=== PATIENT | male | born 1950 | race Caucasian/White ===

== ENCOUNTER → 2016-08-01 | Outpatient (CLI) | payer OTHER ==
[~2016-08-01] MED LIST: ACET-1256 PO; B-CO-25 PO; CALCTAB5 PO; CINN500T PO; COEN1CAP28 PO; CRAN500C2 PO; FINA5TAB4 PO; FISHCAP PO; GARL400T4 PO; GLC/500 PO; NRN300 PO; SIMV20TA5 PO; WARF5TAB90 PO
[2016-08-01 07:37] LABS: INR 1.2 (0.9-1.1); PROTHROMBIN TIME (PATIENT) 12.7 SECONDS (9.0-12.0)
--- NOTE | 2016-08-02 11:47 | CODING QUERY NO DIAGNOSIS ---
: 1950 TREATMENT RENDERED WITHOUT A DIAGNOSIS To promote full compliance with coding requirements relating to patient care, physician participation is requested in all cases of slitter processed film uncertainty. Please assist us with providing a diagnosis/symptom for the test(s) below: A diagnosis/symptom was not documented on your Order. A valid diagnosis/symptom is required to bill all insurances. Please remember that we are unable to code a diagnosis of rule out, probable, possible, questionable, or suspected. Tests that require a diagnosis: DOS: 08/01/16 * Prothrombin Time Profile DIAGNOSIS: Provider Signature: Date: Thank you Sol[facility] Information Management Once completed, please kindly fax back to [phone] For questions please call [phone]
== END | disposition home or self-care (01) ==
LOC: C.LAB 07:01
PROVIDERS: ATTEND Anesthesiology
DX: Z86.718 Personal history of other venous thrombosis and embolism (principal)

== ENCOUNTER → 2016-08-15 | Outpatient (CLI) | payer OTHER ==
--- NOTE | 2016-08-15 10:18 | DIAGNOSTIC IMAGING REPORT ---
RIGHT RIBS UNILATERAL WITH PA CHEST CLINICAL HISTORY: Right-sided rib pain. Trauma. COMPARISON STUDY: Chest x-ray dated 05/27/2016 FINDINGS: The erect chest reveals no pneumothorax. No acute rib fractures are visualized. IMPRESSION: No evidence of pneumothorax. No right-sided rib fractures are visualized. Electronically signed by: Carlos Alberto Nichols M.D. 08/15/2016 10:16 AM Dictated Date/Time: 08/15/2016 10:11 AM
== END | disposition home or self-care (01) ==
LOC: C.RADBC 09:53
PROVIDERS: ATTEND Anesthesiology
DX: R07.81 Pleurodynia (principal)

== ENCOUNTER 2021-01-27 08:46 | Inpatient (IN) ==
[2021-01-27] MEDS ORDERED: ACETAMINOPHEN 1,000 MG/100 ML VIAL IV STA (09:39)
--- NOTE | 2021-01-27 09:51 | Emergency Department Note ---
History of Present Illness General Chief complaint: Neuro Symptoms/Deficit Stated complaint: HEADACHE, VISION CHANGES, NEUROLOCIGAL CHANGES Time Seen by Provider: 01/27/21 09:26 Source: patient Mode of arrival: ambulatory Limitations: no limitations History of Present Illness Provider complaint: Headache, vision changes Onset (ago): day(s) 1 Location: head and eyes Radiation: non-radiation Severity: mild Pain Consistency: + constant Maximum Pain Intensity: 3 Quality: + aching and + dull Relieved By: + none Exacerbated By: + none Associated symptoms: + loss of appetite Treatments prior to arrival: none This is a 70-year-old male presents emergency department with concern for persistent headache and vision changes. Patient states yesterday when he noticed the vision changes he felt weak in the left hand and dropped his cell phone. States today when going to try and replace his cell phone and they asked him to enter information onto a small keypad he was unable to see the keypad. Patient states prior to the episode yesterday he developed a dull headache behind his eyes bilaterally. Denies any history of headaches. States he has not taken anything for the headache. States headache persisted all day yesterday and then today. He denies any accompanying lightheadedness, dizziness, nausea, vomiting, fevers, chills. Denies any recent change in medication. Patient states he has not had a good appetite for many months, and does not know why. Denies any change in his bowel movements or urinary habits. Patient is anticoagulated, states his INR was checked this morning at the lab and he was told it was 2.1 which is slightly low for him. He denies any recent head trauma or injury. No other recent illness or known sick contacts. Pt seen during a time of high acuity and national emergency pandemic while wearing PPE. Home Medications Medication Instructions Recorded Confirmed Type Calcium 600 + D(3) 1 tab PO BID 05/09/18 01/27/21 History Super B Complex + C 1 tab PO PM 05/09/18 01/27/21 History acetaminophen [Tylenol Extra 500 mg PO Q6H PRN 05/09/18 01/27/21 History Strength] cinnamon bark [Cinnamon] 1,000 mg PO TID 05/09/18 01/27/21 History coenzyme Q10 10 mg PO PM 05/09/18 01/27/21 History cranberry 500 mg PO BID 05/09/18 01/27/21 History gabapentin 300 mg PO TID 05/09/18 01/27/21 History metformin 500 mg PO BID 05/09/18 01/27/21 History omega-3 fatty acids [Fish Oil 1,000 mg PO BID 05/09/18 01/27/21 History Concentrate] simvastatin 20 mg PO PM 05/09/18 01/27/21 History warfarin [Coumadin] 2.5 - 5 mg PO DAILY 05/09/18 01/27/21 History apple cider vinegar 1,500 mg PO PM 01/27/21 01/27/21 History finasteride 5 mg PO PM 01/27/21 01/27/21 History ondansetron 4 mg PO Q6H PRN 01/27/21 01/27/21 History Allergies Allergy/AdvReac Type Severity Reaction Status Date / Time No Known Allergies Allergy Unverified 01/27/21 10:11 Past Med/Surg History Medical History (Updated 01/27/21 @ 16:08 by aFrrah Caraballo DO) BPH (benign prostatic hypertrophy) Diabetes mellitus, type 2 Dyslipidemia History of DVT (deep vein thrombosis) Surgical History H/O colonoscopy " 04/02/2014- TVA polyp, diverticulosis " History of tympanoplasty of right ear Status post appendectomy Family History Other Diabetes Heart disease Social History Smoking Status: Former smoker Second Hand Exposure: No; Hx Alcohol Use: No Hx Substance Use: No Preferred Language: Yoruba Communication Ability: Effective 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 and A total of 10 systems reviewed and were otherwise negative Physical Exam Vital Signs Vital Signs - 24 hr 01/27/21 08:49 01/27/21 09:11 01/27/21 11:00 Temperature 36.9 C Temperature Source Oral Pulse Rate 65 66 62 Pulse Rate from SpO2 Sensor 59 L Respiratory Rate 17 18 17 Blood Pressure 172/99 H 172/99 H 172/99 H Blood Pressure Mean 123 123 123 Pulse Oximetry 96 99 Oxygen Delivery Method Room Air Sepsis Recent Fever Within 48 Hours No Sepsis New/Unexplained Change in Mental Status N/A Sepsis Action Taken by Nursing No Action Required GENERAL: alert, well appearing, well nourished, no distress, non-toxic EYE EXAM: normal conjunctiva, PERRL and EOM's grossly intact, no nystagmus OROPHARYNX: no exudate, no erythema, lips, buccal mucosa, and tongue normal and mucous membranes are moist NECK: supple, no nuchal rigidity, no adenopathy, non-tender LUNGS: Clear to auscultation. Normal chest wall mechanics, no w/r/r HEART: no murmurs, S1 normal and S2 normal ABDOMEN: abdomen soft, non-tender, normo-active bowel sounds, no masses, no rebound or guarding. BACK: Back is symmetrical on inspection and there is no deformity, no midline tenderness, no CVA tenderness. SKIN: no rashes and no bruising UPPER EXTREMITIES: upper extremities are grossly normal. FROM, nml pulses b/l. LOWER EXTREMITIES: No pitting edema. FROM, nml pulses b/l. Evidence of healing superficial abrasion noted to the right pretibial region. NEURO EXAM: Normal sensorium, cranial nerves II-XII grossly intact, normal speech, no facial droop, no gross weakness of arms, no gross weakness of legs. No pronator drift. Finger to nose intact. Gross sensation intact. Course Course 1050: Patient updated on results and need for additional inpatient management. Case discussed with Mikey Bailey hospitalist service. Administered Medications Sodium Chloride (Nss 1000ml) 1,000 mls @ 250 mls/hr IV .Q4H WILMER Stop: 02/26/21 09:44 Last Infusion: 01/27/21 14:50 Dose: 0 mls/hr Documented by: [id number] Admin: 01/27/21 09:54 Dose: 250 mls/hr Documented by: [id number] Discontinued Medications Acetaminophen (Ofirmev) 1,000 mg in 100 mls @ 400 mls/hr IV NOW STA Stop: 01/27/21 09:53 Last Infusion: 01/27/21 10:11 Dose: 0 mls/hr Documented by: [id number] Admin: 01/27/21 09:54 Dose: 400 mls/hr Documented by: [id number] Ioversol (Optiray 320 125ml) 120 ml IV ONCE ONE Stop: 01/27/21 10:28 Last Admin: 01/27/21 10:28 Dose: 120 ml Documented by: [id number] Medical Decision Making Differential Diagnosis Differential Diagnosis includes but is not limited to headache, tension headache, cluster headache, migraine, subarachnoid hemorrhage, meningitis, mass, central venous thrombus, concussion, trauma and epidural/subdural hemorrhage. Medical Records Attestation: I reviewed the patient's medical records. Home Medications Current Medication List: was personally reviewed by me Laboratory Data Attestation: I reviewed the patient's lab results. Result diagrams: 01/27/21 09:00 01/27/21 09:00 Lab Results 01/27/21 01/27/21 01/27/21 Range/Units 09:00 09:00 09:00 WBC 7.48 (4.8-10.8) K/uL RBC 4.47 L (4.7-6.1) M/uL Hgb 13.8 L (14.0-18.0) g/dL Hct 39.9 L (42-52) % MCV 89.3 (80-100) fL MCH 30.9 (25-34) pg MCHC 34.6 (32-36) g/dL RDW Std Deviation 46.5 H (36.4-46.3) fL RDW Coeff of Aranza 14.3 (11.5-14.5) % Plt Count 160 (130-400) K/uL MPV 10.3 (7.4-10.4) fL Immature Gran % (Auto) 0.5 % Neut % (Auto) 73.8 % Lymph % (Auto) 16.2 % [place]ascade % (Auto) 7.4 % Eos % (Auto) 1.7 % Baso % (Auto) 0.4 % Neut # (Auto) 5.52 (1.4-6.5) K/uL Lymph # (Auto) 1.21 (1.2-3.4) K/uL Cascade # (Auto) 0.55 (0.11-0.59) K/uL Eos # (Auto) 0.13 (0-0.5) K/uL Baso # (Auto) 0.03 (0-0.2) K/uL Immature Gran # (Auto) 0.04 H (0.00-0.02) K/uL PT (9.0-12.0) Seconds INR (0.9-1.1) Sodium 136 (136-145) mmol/L Potassium 4.4 (3.5-5.1) mmol/L Chloride 104 (98-107) mmol/L Carbon Dioxide 28 (21-32) mmol/L Anion Gap 4.0 (3-11) BUN 22 H (7-18) mg/dl Creatinine 1.15 (0.6-1.4) mg/dl Est Cr Clr Drug Dosing 64.5 ml/min Est GFR ( Amer) 73.3 ml/min Est GFR (Non-Af Amer) 63.2 ml/min BUN/Creatinine Ratio 19.5 (10-20) Glucose 140 H (70-99) mg/dl Calcium 9.4 (8.5-10.1) mg/dl Magnesium 1.8 (1.8-2.4) mg/dl Total Bilirubin 0.7 (0.2-1) mg/dl AST 19 (15-37) U/L ALT 21 (12-78) U/L Alkaline Phosphatase 68 (45-117) U/L Troponin I < 0.015 (0-0.045) ng/ml NT-Pro-B Natriuret Pep 132 (0-900) pg/ml Total Protein 7.4 (6.4-8.2) gm/dl Albumin 4.0 (3.4-5.0) gm/dl Globulin 3.4 (2.5-4.0) gm/dl Albumin/Globulin Ratio 1.2 (0.9-2) Lipase 184 (73-393) U/L TSH 1.860 (0.300-4.500) uIu/ml Lyme Disease IgG Ab Negative (Negative) Lyme Disease IgM Ab Equivocal A (Negative) COVID-19 Eval Order SARS-CoV-2 (PCR) (Negative) 01/27/21 01/27/21 01/27/21 Range/Units 09:00 11:00 11:00 WBC (4.8-10.8) K/uL RBC (4.7-6.1) M/uL Hgb (14.0-18.0) g/dL Hct (42-52) % MCV (80-100) fL MCH (25-34) pg MCHC (32-36) g/dL RDW Std Deviation (36.4-46.3) fL RDW Coeff of Aranza (11.5-14.5) % Plt Count (130-400) K/uL MPV (7.4-10.4) fL Immature Gran % (Auto) % Neut % (Auto) % Lymph % (Auto) % [place]ascade % (Auto) % Eos % (Auto) % Baso % (Auto) % Neut # (Auto) (1.4-6.5) K/uL Lymph # (Auto) (1.2-3.4) K/uL [place] # (Auto) (0.11-0.59) K/uL Eos # (Auto) (0-0.5) K/uL Baso # (Auto) (0-0.2) K/uL Immature Gran # (Auto) (0.00-0.02) K/uL PT 17.7 H (9.0-12.0) Seconds INR 1.8 H (0.9-1.1) Sodium (136-145) mmol/L Potassium (3.5-5.1) mmol/L Chloride (98-107) mmol/L Carbon Dioxide (21-32) mmol/L Anion Gap (3-11) BUN (7-18) mg/dl Creatinine (0.6-1.4) mg/dl Est Cr Clr Drug Dosing ml/min Est GFR ( Amer) ml/min Est GFR (Non-Af Amer) ml/min BUN/Creatinine Ratio (10-20) Glucose (70-99) mg/dl Calcium (8.5-10.1) mg/dl Magnesium (1.8-2.4) mg/dl Total Bilirubin (0.2-1) mg/dl AST (15-37) U/L ALT (12-78) U/L Alkaline Phosphatase (45-117) U/L Troponin I (0-0.045) ng/ml NT-Pro-B Natriuret Pep (0-900) pg/ml Total Protein (6.4-8.2) gm/dl Albumin (3.4-5.0) gm/dl Globulin (2.5-4.0) gm/dl Albumin/Globulin Ratio (0.9-2) Lipase (73-393) U/L TSH (0.300-4.500) uIu/ml Lyme Disease IgG Ab (Negative) Lyme Disease IgM Ab (Negative) COVID-19 Eval Order Covid19 at [facility] SARS-CoV-2 (PCR) NEGATIVE (Negative) Imaging Data Radiologist's Impression: Chest X-Ray 01/27/21 09:39 XR chest 1V portable CLINICAL HISTORY: dizzy COMPARISON STUDY: 1118 FINDINGS: The heart is borderline enlarged. There is no focal pulmonary consolidation. There is slight interstitial prominence without evidence of failure. There are no pleural effusions. There is a 3 mm opaque foreign body within the infra axillary soft tissues of the left lateral chest wall[ IMPRESSION: No active disease in the chest. ACT 112: Negative or not required by law. Electronically signed by: Carlos Alberto Nichols M.D. 01/27/2021 10:[address] 01/27/21 09:39 CT head/brain wo con CLINICAL HISTORY: Headache and visual changes COMPARISON STUDY: No previous studies for comparison. TECHNIQUE: Axial CT of the brain is performed from the vertex to the skull base. IV contrast was not administered for this examination. A dose lowering technique was utilized adhering to the principles of ALARA. CT DOSE: 1678.78 mGycm FINDINGS: There is a right posterior frontal hypodensity involving both deras and white matter. This is suspicious for a subacute infarct. An MRI is recommended in follow-up to confirm this impression. There is no acute hemorrhage. There is no midline shift. There is no evidence of pathologic ventricular dilatation. There is no evidence of acute sinusitis IMPRESSION: 1. Right posterior frontal hypodensity involving both deras and white matter. The findings are suspicious for subacute infarct. An MRI is recommended in follow- up to confirm this impression. ACT 112: Negative or not required by law. Electronically signed by: Carlos Alberto Nichols M.D. 01/27/2021 10:36 AM Head CTA 01/27/21 09:39 HEAD & NECK CTA HISTORY: Headache. Vision change. TECHNIQUE: Multiaxial CT images of the head were performed following the intravenous administration of contrast to evaluate the major cerebral vessels. Multiaxial CT images of the neck were also performed following the intravenous administration of contrast to evaluate the major cervical vessels. Maximum intensity projection images were also obtained. A dose lowering technique was utilized adhering to the principles of ALARA. COMPARISON: Head CT 01/27/2021. FINDINGS: Bandlike hypodensity within the right frontotemporal region consistent with an acute/subacute right MCA territory infarct. Diminished perfusion within the superior division of the M2 branches of the right MCA likely corresponding to the acute/subacute infarct. No focal thrombus identified on this study. The remaining branches of the right MCA appear patent. Mild to moderate calcified plaque within the bilateral carotid siphons without significant stenosis. There is a hypoplastic distal left vertebral artery which terminates into the left posterior inferior cerebellar artery. This is considered to be a normal variant. The basilar artery and bilateral P1 segments are hypoplastic. The bilateral pbx supervisor are fed primarily through the posterior communicating arteries consistent with normal variants. The left MCA, bilateral ACAs, and bilateral FILM PRINTER show no significant stenosis, occlusion, or aneurysm. The major dural venous sinuses appear patent. The aortic arch and proximal great vessels are widely patent. There is no significant stenosis, occlusion, or dissection identified within the bilateral common carotid, internal carotid, or vertebral arteries. Mild calcified plaque within the bilateral carotid bulbs. Shotty lower cervical lymph nodes are noted. IMPRESSION: 1. Bandlike hypodensity within the right frontal temporal region consistent with an acute to subacute right MCA territory infarct. 2. Diminished perfusion within the superior division of the right MCA likely corresponding to the acute/subacute infarct. No focal thrombus identified in this study. 3. No significant stenosis, occlusion, or dissection identified within the carotid or vertebral arteries. ACT 112: Negative or not required by law. Electronically signed by: Deshawn Montesinos M.D. 01/27/2021 10:52 AM Neck CTA 01/27/21 09:39 HEAD & NECK CTA HISTORY: Headache. Vision change. TECHNIQUE: Multiaxial CT images of the head were performed following the intravenous administration of contrast to evaluate the major cerebral vessels. Multiaxial CT images of the neck were also performed following the intravenous administration of contrast to evaluate the major cervical vessels. Maximum intensity projection images were also obtained. A dose lowering technique was utilized adhering to the principles of ALARA. COMPARISON: Head CT 01/27/2021. FINDINGS: Bandlike hypodensity within the right frontotemporal region consistent with an acute/subacute right MCA territory infarct. Diminished perfusion within the superior division of the M2 branches of the right MCA likely corresponding to the acute/subacute infarct. No focal thrombus identified on this study. The remaining branches of the right MCA appear patent. Mild to moderate calcified plaque within the bilateral carotid siphons without significant stenosis. There is a hypoplastic distal left vertebral artery which terminates into the left posterior inferior cerebellar artery. This is considered to be a normal variant. The basilar artery and bilateral P1 segments are hypoplastic. The bilateral pbx supervisor are fed primarily through the posterior communicating arteries consistent with normal variants. The left MCA, bilateral ACAs, and bilateral FILM PRINTER show no significant stenosis, occlusion, or aneurysm. The major dural venous sinuses appear patent. The aortic arch and proximal great vessels are widely patent. There is no significant stenosis, occlusion, or dissection identified within the bilateral common carotid, internal carotid, or vertebral arteries. Mild calcified plaque within the bilateral carotid bulbs. Shotty lower cervical lymph nodes are noted. IMPRESSION: 1. Bandlike hypodensity within the right frontal temporal region consistent with an acute to subacute right MCA territory infarct. 2. Diminished perfusion within the superior division of the right MCA likely corresponding to the acute/subacute infarct. No focal thrombus identified in this study. 3. No significant stenosis, occlusion, or dissection identified within the carotid or vertebral arteries. ACT 112: Negative or not required by law. Electronically signed by: Deshawn Montesinos M.D. 01/27/2021 10:52 AM ECG Data Attestation: I personally reviewed and interpreted this ECG as follows: Indication: + other Rate (beats per minute): 61 Rhythm: + normal sinus ECG Intervals/blocks: + Normal QRS and + Normal QT ECG [place]: + Normal ECG ST segments: + Normal ST segments Blood Pressure Blood Pressure Findings: Elevated blood pressure MDM Narrative This is a 70-year-old male who presents due to concern for persistent headaches and vision changes since yesterday. Patient is chronically anticoagulated, does have a history of hypertension and diabetes. Patient denies any recent trauma or medication changes. Due to concern, labs drawn and sent and patient sent for CT imaging. Fortunately CT did reveal subacute CVA. It is unclear if this is related to patient being mildly subtherapeutic on his INR at 2.1 as he states he is typically supposed to be at least 2.5. No other recent illness. Lyme was equivocal, however no recent story for insect bite or exposure, will await additional testing. Patient was hypertensive here. Case discussed with hospitalist for additional evaluation management. Patient and family made aware of all results, verbalized understanding, were in agreement with plan. Mild hyperglycemia noted, no evidence of DKA. An order was placed for continuous cardiac monitoring. The monitor shows a rate of _64_ with normal sinus_ rhythm. Impression & Plan CVA (cerebral vascular accident), Subtherapeutic international normalized ratio (INR), Hypertension Discharge Plan Visit Data Chief Complaint: Neuro Symptoms/Deficit Stated Complaint: HEADACHE, VISION CHANGES, NEUROLOCIGAL CHANGES ED Provider: Farrah Caraballo Discharge Problem: CVA (cerebral vascular accident), Subtherapeutic international normalized ratio (INR), Hypertension Patient Disposition: Admitted As Inpatient Discharge Instructions Interventions: ED Discharge Assessment Last Done: 01/27/21 13:54 Discharge Problem: CVA (cerebral vascular accident) Qualifiers: CVA mechanism: unspecified Qualified Code(s): I63.9 - Cerebral infarction, unspecified Hypertension Qualifiers: Hypertension type: primary hypertension Qualified Code(s): I10 - Essential (primary) hypertension
[2021-01-27] MEDS: SODIUM CHLORIDE 0.9% 1000ML 1,000 ML IV SCH ×2 (09:54→16:39)
[2021-01-27 09:55] LABS: Basophils # (auto) 0.03 K/uL (0-0.2); Basophils % (auto) 0.4 %; Eosinophils # (auto) 0.13 K/uL (0-0.5); Eosinophils % (auto) 1.7 %; Hematocrit (blood only) 39.9 % (42-52); Hemoglobin 13.8 g/dL (14.0-18.0); Immature Granulocytes # (auto) 0.04 K/uL (0.00-0.02); Immature Granulocytes % (auto) 0.5 %; Lymphocytes # (auto) 1.21 K/uL (1.2-3.4); Lymphocytes % (auto) 16.2 %; Mean Corpuscular Hemoglobin 30.9 pg (25-34); Mean Corpuscular Hgb Conc 34.6 g/dL (32-36); Mean Corpuscular Volume 89.3 fL (80-100); Mean Platelet Volume 10.3 fL (7.4-10.4); Monocytes # (auto) 0.55 K/uL (0.11-0.59); Monocytes % (auto) 7.4 %; Neutrophils # (auto) 5.52 K/uL (1.4-6.5); Neutrophils % (auto) 73.8 %; Platelet Count 160 K/uL (130-400); RDW Coefficient of Variation 14.3 % (11.5-14.5); RDW Standard Deviation 46.5 fL (36.4-46.3); Red Blood Count 4.47 M/uL (4.7-6.1); White Blood Count 7.48 K/uL (4.8-10.8)
[2021-01-27 10:02] LABS: Alanine Aminotransferase 21 U/L (12-78); Aspartate Aminotransferase 19 U/L (15-37); BUN Creatinine Ratio 19.5 (10-20); Blood Urea Nitrogen 22 mg/dl (7-18); Calcium 9.4 mg/dl (8.5-10.1); Carbon Dioxide 28 mmol/L (21-32); Chloride 104 mmol/L (98-107); Creatinine Clr Calc Pharmacy 64.5 ml/min; Est GFR (African American) 73.3 ml/min; Est GFR (Non-African American) 63.2 ml/min; Glucose 140 mg/dl (70-99); Lipase 184 U/L (73-393); Magnesium 1.8 mg/dl (1.8-2.4); Potassium 4.4 mmol/L (3.5-5.1); Sodium 136 mmol/L (136-145)
[2021-01-27 10:13] LABS: Albumin Globulin Ratio 1.2 (0.9-2); Alkaline Phosphatase 68 U/L (45-117); Bilirubin,Total 0.7 mg/dl (0.2-1); Globulin 3.4 gm/dl (2.5-4.0); NT Pro B Type Natriuretic Pept 132 pg/ml (0-900); Total Protein 7.4 gm/dl (6.4-8.2); Troponin I < 0.015 ng/ml (0-0.045)
[2021-01-27 10:23] LABS: Lyme Ab IgG w/WB Rflx Negative (Negative)
[2021-01-27] MEDS ORDERED: OPTIRAY 320 125ml IV ONE (10:27)
[2021-01-27 10:28] LABS: Lyme Ab IgM w/WB Rflx Equivocal (Negative)
--- NOTE | 2021-01-27 10:38 | CT Scan Report ---
CT head/brain wo con CLINICAL HISTORY: Headache and visual changes COMPARISON STUDY: No previous studies for comparison. TECHNIQUE: Axial CT of the brain is performed from the vertex to the skull base. IV contrast was not administered for this examination. A dose lowering technique was utilized adhering to the principles of ALARA. CT DOSE: 1678.78 mGycm FINDINGS: There is a right posterior frontal hypodensity involving both deras and white matter. This is suspicio us for a subacute infarct. An MRI is recommended in follow-up to confirm this impression. There is no acute hemorrhage. There is no midline shift. There is no evidence of pathologic ventricular dilatation. There is no evidence of acute sinusitis IMPRESSION: 1. Right posterior frontal hypodensity involving both deras and white matter. The findings are suspici ous for subacute infarct. An MRI is recommended in follow-up to confirm this impression. ACT 112: Negative or not required by law. Electronically signed by: Carlos Alberto Nichols M.D. 01/27/2021 10:36 AM
--- NOTE | 2021-01-27 10:48 | XRay Report ---
XR chest 1V portable CLINICAL HISTORY: dizzy COMPARISON STUDY: 1118 FINDINGS: The heart is borderline enlarged. There is no focal pulmonary consolidation. There is sligh t interstitial prominence without evidence of failure. There are no pleural effusions. There is a 3 m m opaque foreign body within the infra axillary soft tissues of the left lateral chest wall[ IMPRESSION: No active disease in the chest. ACT 112: Negative or not required by law. Electronically signed by: Carlos Alberto Nichols M.D. 01/27/2021 10:47 AM
--- NOTE | 2021-01-27 10:53 | CT Scan Report ---
HEAD & NECK CTA HISTORY: Headache. Vision change. TECHNIQUE: Multiaxial CT images of the head were performed following the intravenous administration o f contrast to evaluate the major cerebral vessels. Multiaxial CT images of the neck were also perform ed following the intravenous administration of contrast to evaluate the major cervical vessels. Maxim um intensity projection images were also obtained. A dose lowering technique was utilized adhering to the principles of ALARA. COMPARISON: Head CT 01/27/2021. FINDINGS: Bandlike hypodensity within the right frontotemporal region consistent with an acute/subacute right M CA territory infarct. Diminished perfusion within the superior division of the M2 branches of the rig ht MCA likely corresponding to the acute/subacute infarct. No focal thrombus identified on this study . The remaining branches of the right MCA appear patent. Mild to moderate calcified plaque within the bilateral carotid siphons without significant stenosis. There is a hypoplastic distal left vertebral artery which terminates into the left posterior inferior cerebellar artery. This is considered to be a normal variant. The basilar artery and bilateral P1 segments are hypoplastic. The bilateral briefcase sewer a re fed primarily through the posterior communicating arteries consistent with normal variants. The le ft MCA, bilateral ACAs, and bilateral WATER PLUMBER show no significant stenosis, occlusion, or aneurysm. The m ajor dural venous sinuses appear patent. The aortic arch and proximal great vessels are widely patent. There is no significant stenosis, occ lusion, or dissection identified within the bilateral common carotid, internal carotid, or vertebral arteries. Mild calcified plaque within the bilateral carotid bulbs. Shotty lower cervical lymph nodes are noted. IMPRESSION: 1. Bandlike hypodensity within the right frontal temporal region consistent with an acute to subacute right MCA territory infarct. 2. Diminished perfusion within the superior division of the right MCA likely corresponding to the acu te/subacute infarct. No focal thrombus identified in this study. 3. No significant stenosis, occlusion, or dissection identified within the carotid or vertebral arter ies. ACT 112: Negative or not required by law. Electronically signed by: Deshawn Montesinos M.D. 01/27/2021 10:52 AM
--- NOTE | 2021-01-27 10:53 | CT Scan Report ---
HEAD & NECK CTA HISTORY: Headache. Vision change. TECHNIQUE: Multiaxial CT images of the head were performed following the intravenous administration o f contrast to evaluate the major cerebral vessels. Multiaxial CT images of the neck were also perform ed following the intravenous administration of contrast to evaluate the major cervical vessels. Maxim um intensity projection images were also obtained. A dose lowering technique was utilized adhering to the principles of ALARA. COMPARISON: Head CT 01/27/2021. FINDINGS: Bandlike hypodensity within the right frontotemporal region consistent with an acute/subacute right M CA territory infarct. Diminished perfusion within the superior division of the M2 branches of the rig ht MCA likely corresponding to the acute/subacute infarct. No focal thrombus identified on this study . The remaining branches of the right MCA appear patent. Mild to moderate calcified plaque within the bilateral carotid siphons without significant stenosis. There is a hypoplastic distal left vertebral artery which terminates into the left posterior inferior cerebellar artery. This is considered to be a normal variant. The basilar artery and bilateral P1 segments are hypoplastic. The bilateral masking machine operator a re fed primarily through the posterior communicating arteries consistent with normal variants. The le ft MCA, bilateral ACAs, and bilateral RADAR REPAIRER show no significant stenosis, occlusion, or aneurysm. The m ajor dural venous sinuses appear patent. The aortic arch and proximal great vessels are widely patent. There is no significant stenosis, occ lusion, or dissection identified within the bilateral common carotid, internal carotid, or vertebral arteries. Mild calcified plaque within the bilateral carotid bulbs. Shotty lower cervical lymph nodes are noted. IMPRESSION: 1. Bandlike hypodensity within the right frontal temporal region consistent with an acute to subacute right MCA territory infarct. 2. Diminished perfusion within the superior division of the right MCA likely corresponding to the acu te/subacute infarct. No focal thrombus identified in this study. 3. No significant stenosis, occlusion, or dissection identified within the carotid or vertebral arter ies. ACT 112: Negative or not required by law. Electronically signed by: Deshawn Montesinos M.D. 01/27/2021 10:52 AM
[2021-01-27 11:05] LABS: INR 1.8 (0.9-1.1); Prothrombin Time 17.7 Seconds (9.0-12.0)
--- NOTE | 2021-01-27 11:12 | History & Physical Report ---
Date of Service January 27, 2021 Assessment & Plan (1) CVA (cerebral vascular accident): -Admit to PCU -CT and CTA head and neck reviewed showing a right MCA acute infarct -Check MRI brain w/o -Stroke order set completed, Dr. Contreras consulted with neurology -Start on baby aspirin 81 mg -Continue Coumadin, currently subtherapeutic with an INR of 2.1, as per HPI for hx of subtherapeutic for about 3 weeks. Cannot say that this patient failed coumadin. -Possible the stroke occurred due to history of 3 weeks of subtherapeutic INR -Coumadin dosing was increased this morning at the coag clinic to reflect 2.5 mg on Mondays and 5 mg all other days. -Check 2D echo -PT/OT/speech therapy -Follow-up A1c and lipid panel with a.m. labs (2) Dyslipidemia: -Has been taking simvastatin 20 mg every afternoon, increase this, no history of myalgia. -Follow-up repeat lipid panel tomorrow a.m. (3) Diabetes mellitus, type 2: -Last A1c was 6.8 on 09/29/2020, recheck with a.m. 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 These complaints started yesterday, on 01/26 at approximately 9 AM. Patient reports that his vision was wavy/blurred and is now back to normal. He had a left handed weakness where he dropped his cell phone. Patient reports his weakness in his left arm is improved but not back to normal. He has been ambulating and denies any focal deficit in his lower extremities. Reports currently having a headache behind his eyes and is receiving IV Tylenol. Denies any chest pain or shortness of breath. Patient denies smoking since 1973, no chewing tobacco, no alcohol consumption. His friend, Montse, is present at bedside. Patient follows with the Coumadin clinic with Mikey, he had previously been taking Coumadin 5 mg twice a week and 2.5 mg all other days, but was switched today by the coag clinic to Coumadin 2.5 mg on Mondays and 5 mg all other days. On review of outpatient records, it appears that on 01/06 he was supratherapeutic with an INR of 6.1. At that point in time he was told to hold 2 doses. On 01/13 his INR was subtherapeutic at 1.3, and again subtherapeutic on 01/20 at 1.2. Today in the ER he is again subtherapeutic with an INR of 2.1. In the ER CT of the head and CTA was completed which shows a subacute right MCA infarct without focal thrombus. Allergies Allergy/AdvReac Type Severity Reaction Status Date / Time No Known Allergies Allergy Unverified 01/27/21 10:11 Home Medications Medication Instructions Recorded Confirmed Type acetaminophen 500 mg tablet 500 mg PO Q6H PRN 05/09/18 01/27/21 History (Tylenol Extra Strength) calcium carbonate-vitamin D3 600 1 tab PO BID 05/09/18 01/27/21 History mg calcium-200 unit capsule (Calcium 600 + D(3)) cinnamon bark 500 mg capsule 1,000 mg PO TID 05/09/18 01/27/21 History (Cinnamon) coenzyme Q10 10 mg capsule 10 mg PO PM 05/09/18 01/27/21 History cranberry 500 mg capsule 500 mg PO BID 05/09/18 01/27/21 History gabapentin 300 mg capsule 300 mg PO TID 05/09/18 01/27/21 History metformin 500 mg tablet 500 mg PO BID 05/09/18 01/27/21 History omega-3 fatty acids 1,000 mg 1,000 mg PO BID 05/09/18 01/27/21 History capsule (Fish Oil Concentrate) vitamin B comp with C no.4 150 mg 1 tab PO PM 05/09/18 01/27/21 History tablet (Super B Complex + C) apple cider vinegar 500 mg tablet 1,500 mg PO PM 01/27/21 01/27/21 History finasteride 5 mg tablet 5 mg PO PM 01/27/21 01/27/21 History ondansetron 4 mg disintegrating 4 mg PO Q6H PRN 01/27/21 01/27/21 History tablet amlodipine 5 mg tablet (Norvasc) 2.5 mg PO QAM #30 tab 02/02/21 Rx apixaban 5 mg tablet (Eliquis) 5 mg PO BID 30 Days #60 tab 02/02/21 Rx aspirin 81 mg tablet,delayed 81 mg PO QAM #30 tab 02/02/21 Rx release atorvastatin 40 mg tablet 40 mg PO QPM #30 tab 02/02/21 Rx Past Med/Surg History Medical History (Updated 01/27/21 @ 16:08 by Farrah Caraballo DO) BPH (benign prostatic hypertrophy) Diabetes mellitus, type 2 Dyslipidemia History of DVT (deep vein thrombosis) Surgical History H/O colonoscopy " 04/02/2014- TVA polyp, diverticulosis " History of tympanoplasty of right ear Status post appendectomy Family History Other Diabetes Heart disease Social History Smoking Status: Former smoker Second Hand Exposure: No; Hx Alcohol Use: No Hx Substance Use: No Preferred Language: German Communication Ability: Effective Car Tracer Required: No Beliefs That Will Affect Care: None marital status: / Current Living Situation: Alone How many Children do You have: 0 Other Information That Helps Us Care for You: No Feels Safe at Home: Yes Safety Concerns: Feels Safe At This Time Assistive Devices: None Review of Systems Review of Systems: Constitutional: No fever, sweats or chills Eyes: As per HPI, + blurred vision now improved, no peripheral visual field deficit, no diplopia. ENT: normal hearing, no trouble swallowing Respiratory: No cough, sputum, dyspnea at rest or on exertion Cardiovascular: No chest pain, tightness or palpitations Abdomen: No pain, nausea, vomiting, diarrhea or constipation Musculoskeletal: No joint pain, calf pain, swelling Neurologic: + Left hand/arm weakness, no numbness/tingling or balance problems Psychiatric: No anxiety or depression Skin: No rash or itch Physical Exam Physical Exam: General: awake, alert, no apparent distress, overweight, BMI 33.6 Head: Normocephalic, atraumatic, left-sided facial droop involving the mouth ENT: PERRL, EOMI, no pharyngeal exudate, mucous membranes moist, able to identify number of fingers held up Chest: Clear to auscultation, on room air, no adventitious breath sounds Cardiac: Regular rate and rhythm, no murmur, no JVD, normal peripheral pulses, good capillary refill Abdominal: NABS x 4 quadrants, soft, nondistended, nontender to palpation, no rebound or guarding Extremities: Left upper extremity weakness with arm raise, left hip flexor weakness with strength testing and lifting leg off bed, equal handgrip bilaterally, +weakness with plantar flexion in Left, otherwise normal inspection, no peripheral edema or erythema, calfs nontender to palpation Psych: Normal mood and affect Neuro: AAO x 3, cranial nerves tested, left-sided facial droop, left upper extremity weakness with shoulder flexion, left lower extremity weakness with hip flexion, left weakness with plantarflexion. All deficits rated 4/5 compared to the right which is 5/5 strength. Speech is clear, no peripheral sensory deficits, negative pronator drift, able to perform finger to nose testing and heel to summers testing for cerebellar testing, gait not assessed but told by nursing walked to bathroom. Results & Data Results & Data ([facility]) Vital Signs (Past 12 Hours) Vital Signs Temp Pulse Resp BP Pulse Ox 01/27/21 09:11 36.9 C 66 18 172/99 H 96 Diagnostic Findings Chest X-Ray 01/27/21 09:39 XR chest 1V portable CLINICAL HISTORY: dizzy COMPARISON STUDY: 1118 FINDINGS: The heart is borderline enlarged. There is no focal pulmonary consolidation. There is slight interstitial prominence without evidence of failure. There are no pleural effusions. There is a 3 mm opaque foreign body within the infra axillary soft tissues of the left lateral chest wall[ IMPRESSION: No active disease in the chest. ACT 112: Negative or not required by law. Electronically signed by: Carlos Alberto Nichols M.D. 01/27/2021 10:[address] 01/27/21 09:39 CT head/brain wo con CLINICAL HISTORY: Headache and visual changes COMPARISON STUDY: No previous studies for comparison. TECHNIQUE: Axial CT of the brain is performed from the vertex to the skull base. IV contrast was not administered for this examination. A dose lowering technique was utilized adhering to the principles of ALARA. CT DOSE: 1678.78 mGycm FINDINGS: There is a right posterior frontal hypodensity involving both deras and white matter. This is suspicious for a subacute infarct. An MRI is recommended in follow-up to confirm this impression. There is no acute hemorrhage. There is no midline shift. There is no evidence of pathologic ventricular dilatation. There is no evidence of acute sinusitis IMPRESSION: 1. Right posterior frontal hypodensity involving both deras and white matter. The findings are suspicious for subacute infarct. An MRI is recommended in follow- up to confirm this impression. ACT 112: Negative or not required by law. Electronically signed by: Carlos Alberto Nichols M.D. 01/27/2021 10:36 AM Head CTA 01/27/21 09:39 HEAD & NECK CTA HISTORY: Headache. Vision change. TECHNIQUE: Multiaxial CT images of the head were performed following the intravenous administration of contrast to evaluate the major cerebral vessels. Multiaxial CT images of the neck were also performed following the intravenous administration of contrast to evaluate the major cervical vessels. Maximum intensity projection images were also obtained. A dose lowering technique was utilized adhering to the principles of ALARA. COMPARISON: Head CT 01/27/2021. FINDINGS: Bandlike hypodensity within the right frontotemporal region consistent with an acute/subacute right MCA territory infarct. Diminished perfusion within the superior division of the M2 branches of the right MCA likely corresponding to the acute/subacute infarct. No focal thrombus identified on this study. The remaining branches of the right MCA appear patent. Mild to moderate calcified plaque within the bilateral carotid siphons without significant stenosis. There is a hypoplastic distal left vertebral artery which terminates into the left posterior inferior cerebellar artery. This is considered to be a normal variant. The basilar artery and bilateral P1 segments are hypoplastic. The bilateral sewer digger are fed primarily through the posterior communicating arteries consistent with normal variants. The left MCA, bilateral ACAs, and bilateral ABSORBER OPERATOR show no significant stenosis, occlusion, or aneurysm. The major dural venous sinuses appear patent. The aortic arch and proximal great vessels are widely patent. There is no significant stenosis, occlusion, or dissection identified within the bilateral common carotid, internal carotid, or vertebral arteries. Mild calcified plaque within the bilateral carotid bulbs. Shotty lower cervical lymph nodes are noted. IMPRESSION: 1. Bandlike hypodensity within the right frontal temporal region consistent with an acute to subacute right MCA territory infarct. 2. Diminished perfusion within the superior division of the right MCA likely corresponding to the acute/subacute infarct. No focal thrombus identified in this study. 3. No significant stenosis, occlusion, or dissection identified within the carotid or vertebral arteries. ACT 112: Negative or not required by law. Electronically signed by: Deshawn Montesinos M.D. 01/27/2021 10:52 AM Neck CTA 01/27/21 09:39 HEAD & NECK CTA HISTORY: Headache. Vision change. TECHNIQUE: Multiaxial CT images of the head were performed following the intravenous administration of contrast to evaluate the major cerebral vessels. Multiaxial CT images of the neck were also performed following the intravenous administration of contrast to evaluate the major cervical vessels. Maximum intensity projection images were also obtained. A dose lowering technique was utilized adhering to the principles of ALARA. COMPARISON: Head CT 01/27/2021. FINDINGS: Bandlike hypodensity within the right frontotemporal region consistent with an acute/subacute right MCA territory infarct. Diminished perfusion within the superior division of the M2 branches of the right MCA likely corresponding to the acute/subacute infarct. No focal thrombus identified on this study. The remaining branches of the right MCA appear patent. Mild to moderate calcified plaque within the bilateral carotid siphons without significant stenosis. There is a hypoplastic distal left vertebral artery which terminates into the left posterior inferior cerebellar artery. This is considered to be a normal variant. The basilar artery and bilateral P1 segments are hypoplastic. The bilateral sewer digger are fed primarily through the posterior communicating arteries consistent with normal variants. The left MCA, bilateral ACAs, and bilateral ABSORBER OPERATOR show no significant stenosis, occlusion, or aneurysm. The major dural venous sinuses appear patent. The aortic arch and proximal great vessels are widely patent. There is no significant stenosis, occlusion, or dissection identified within the bilateral common carotid, internal carotid, or vertebral arteries. Mild calcified plaque within the bilateral carotid bulbs. Shotty lower cervical lymph nodes are noted. IMPRESSION: 1. Bandlike hypodensity within the right frontal temporal region consistent with an acute to subacute right MCA territory infarct. 2. Diminished perfusion within the superior division of the right MCA likely corresponding to the acute/subacute infarct. No focal thrombus identified in this study. 3. No significant stenosis, occlusion, or dissection identified within the carotid or vertebral arteries. ACT 112: Negative or not required by law. Electronically signed by: Deshawn Montesinos M.D. 01/27/2021 10:52 AM ECG Additional Comments: 27-JAN-2021 09:34:01 [facility]-EDSTAT ROUTINE RETRIEVAL Normal sinus rhythm Cannot rule out Anterior infarct , age undetermined Abnormal ECG When compared with ECG of 27-MAY-2016 23:04, Vent. rate has decreased BY 60 BPM 25mm/s 10mm/mV 150Hz 9.0.9 12SL 241 CELY: 13 Referred by: REFERRED SELF Unconfirmed Vent. rate 61 BPM TX interval 152 ms QRS duration 80 ms QT/QTc 400/402 ms Code Status & VTE Plan Code Status Full code -discussed with the patient at bedside Supervising Physician Co-Signing Physician Notes Pt was seen and examined. Agreed with Radha SAMUEL exam assessment and plan. 70-year-old male with PMHx of DM type II, HLD, recurrent venous thromboembolism in 1983 1993 on long-term anticoagulation with Coumadin, BPH, remote history of smoking, who presents to the ER after sending from his PCP office due to visual deficit, left hand weakness and left-sided facial droop. Pt said that symptoms started yesterday morning. He said that his left hand feel weak and dropped his cell phone. he said that he continues to have vision problem and headache. He followed with the coumadin clinic, but his INR was supratherapeutic at 6.1 on 01/06, then coumadin was held for 2 about 2 days, but on 01/13 INR was 1.3. his INR was checked this morning at the lab and he was told it was 2.1. CT head showed Right posterior frontal hypodensity involving both deras and white matter . The findings are suspicious for subacute infarct. CTA head and Neck showed Bandlike hypodensity within the right frontal temporal region consistent with an acute to subacute right MCA territory infarct. Diminished perfusion within the superior division of the right MCA likely corresponding to the acute/subacute infarct. Received aspirin 81mg, will continue. Will get a MRI of head and ECHO. PT/OT and speech eval. Will consult Neuro. Will discuss with Neuro about anticoagulant. Will monitor BP. Continue monitor closely in tele. MD Renetta
[2021-01-27] MEDS ORDERED: GLUCAGON FOR INJ 1 MG VIAL SQ PRN (14:23)
[2021-01-27] MEDS ORDERED: ONDANSETRON 4 MG OD TAB PO PRN (14:23)
[2021-01-27] MEDS ORDERED: GLUCOSE 40% GEL 15 GM TUBE PO PRN (14:23)
[2021-01-27] MEDS ORDERED: CARBOHYDRATES FOR HYPOGLYCEMIA PO PRN (14:23)
[2021-01-27] MEDS ORDERED: PHARMACIST DISCHARGE MED REC CONSULT PRN (14:23)
[2021-01-27] MEDS ORDERED: DEXTROSE 50% 50 ML SYRINGE IV PRN (14:23)
[2021-01-27] MEDS ORDERED: GLUCOSE 10 TABS/TUBE PO PRN (14:23)
--- NOTE | 2021-01-27 15:25 | Electrocardiogram Report ---
Test Reason : Blood Pressure : / mmHG Vent. Rate : 061 BPM Atrial Rate : 061 BPM P-R Int : 152 ms QRS Dur : 080 ms QT Int : 400 ms P-R-T Axes : 044 -15 030 degrees QTc Int : 402 ms Normal sinus rhythm Cannot rule out Anterior infarct , age undetermined Abnormal ECG When compared with ECG of 27-MAY-2016 23:04, Vent. rate has decreased BY 60 BPM Confirmed by Roel Tellez ([id number]) on 01/27/2021 3:25:12 PM Referred By: REFERRED SELF Confirmed By:Roel Tellez
--- NOTE | 2021-01-27 16:09 | Communication Note ---
Date of Service: January 27, 2021 Neurology was just consulted on today. He had an event yesterday characterized by some visual disturbances and left-sided weakness according to the chart and presented to his primary care office today was felt that he had a stroke and was referred for to the emergency room Thus far CAT scan has shown some bandlike abnormalities in the right frontal area and some attenuated vessels in the right frontal area on the CT angiogram consistent with infarction. There is no significant extracranial vascular disease. An EKG shows what may be an anterior septal SC versus poor R wave progression of indeterminate age. He is currently down for an echocardiogram and an MRI scan He is currently not in his room and cannot be examined but this can be performed tomorrow. According to the chart his current neurologic deficits are relatively minor and he feels subjectively back to normal He has a history of DVT but I am not sure if he has a primary coagulopathy and has been on Coumadin with supratherapeutic levels to the point that Coumadin was held and now he has been subtherapeutic He also has a history of BPH dyslipidemia and his medications at home include aspirin calcium coenzyme every 10 Cranberry cinnamon bark gabapentin Metformin omega-3 fatty acids, simvastatin, and Coumadin is not known to be on aspirin. He takes a number of [id number] food additives and vitamins Neurology will have to defer on consultation today pending results of the imaging studies and the echocardiogram. The chart needs to be reviewed to see if there is underlying primary coagulopathy as a cause for maintaining his Coumadin at this point in time after the DVT (determine whether or not he needs had a work-up for coagulopathy documented on an outpatient basis. Echocardiogram score need to be reviewed to see if he does have evidence for an akinetic segment or other potential cardiogenic source of emboli as currently the CT angiographic studies do not reveal anything of significance. He is going to need to be monitored for paroxysmal atrial fibrillation and may need an outpatient Zio patch Dr. Carney will be assuming the neurologic consultation service tomorrow and will have opportunity to do a more thorough review of his pending imaging studies, echocardiogram, and an opportunity to review the outpatient chart to see if there is an underlying coagulopathy At present his INR needs to be taken back into the therapeutic range and there may have to be consideration of adding aspirin to his regimen depending on what is found on pending studies Patricio Contreras MD
[2021-01-27] MEDS: GABAPENTIN 300 MG CAP PO SCH ×2 (16:28→20:47)
--- NOTE | 2021-01-27 16:30 | Magnetic Resonance Report ---
MRI OF THE BRAIN WITHOUT IV CONTRAST CLINICAL HISTORY: Strokelike symptoms. COMPARISON STUDY: CT of the brain dated 01/27/2021. TECHNIQUE: MRI of the brain was performed utilizing various T1 and T2-weighted sequences in the axial , sagittal, and coronal planes. IV contrast was not administered for this examination. FINDINGS: Brain parenchyma: There is an approximately 4 cm focus of restricted diffusion identified in the righ t posterior frontal lobe consistent with an acute to subacute infarct. There is no evidence of hemorr sagar or mass effect. No additional foci of acute ischemia are identified. No extra-axial fluid collec tion is seen. There is mild age-related involutional change. Minimal microangiopathic disease is seen . The cerebellar tonsils are normal in configuration. Ventricles, sulci, and cisterns: Prominent secondary to involutional change. Pituitary and sella: Unremarkable. Intracranial vasculature: Normal flow voids are maintained at the skull base. Orbits: The bony orbits are grossly intact. Orbital contents are normal in appearance. Sinuses and mastoids: There is mild mucosal thickening within the left maxillary antrum. Trace mucosa l thickening is seen in the ethmoid sinuses. There are bilateral mastoid effusions. Calvarium: Unremarkable. Cervical cord: Partially visualized cervical spinal cord is normal in morphology and signal intensity . IMPRESSION: 1. There is a large acute to subacute infarct in the posterior right frontal lobe. 2. There is no evidence of hemorrhage or mass effect. 3. No additional foci of acute ischemia are identified. 4. Bilateral mastoid effusions. ACT 112: Negative or not required by law. Electronically signed by: Rick Stone M.D. 01/27/2021 4:29 PM
[2021-01-27] MEDS ORDERED: hydrALAZINE HCL 20 MG/ML VIAL IV STA (16:34)
[2021-01-27 16:46] LABS: Appearance Urine Clear (Clear); Bilirubin Urine Negative (Negative); Blood Urine Negative (Negative); Color Urine Yellow; Glucose Urine UA Negative (Negative); Ketones Urine Negative (Negative); Leukocyte Esterase Urine Negative (Negative); Nitrite Urine Negative (Negative); Protein Urine Negative (Negative); Specific Gravity Urine 1.028 (1.000-1.030); Urobilinogen Urine Negative (Negative)
[2021-01-27] MEDS: INSULIN ASPART 100 UNITS/ML 3 ML PEN SC SCH ×3 (17:08→20:50)
[2021-01-27] MEDS ORDERED: hydrALAZINE HCL 20 MG/ML VIAL IV PRN (18:01)
[2021-01-27] MEDS: FINASTERIDE 5 MG TAB PO SCH (20:47)
[2021-01-27] MEDS: SIMVASTATIN 40 MG TAB PO SCH (20:47)
[2021-01-28 07:56] LABS: Basophils # (auto) 0.02 K/uL (0-0.2); Basophils % (auto) 0.3 %; Eosinophils # (auto) 0.14 K/uL (0-0.5); Eosinophils % (auto) 2.2 %; Hematocrit (blood only) 36.7 % (42-52); Hemoglobin 13.1 g/dL (14.0-18.0); Immature Granulocytes # (auto) 0.03 K/uL (0.00-0.02); Immature Granulocytes % (auto) 0.5 %; Lymphocytes # (auto) 1.05 K/uL (1.2-3.4); Lymphocytes % (auto) 16.1 %; Mean Corpuscular Hemoglobin 30.9 pg (25-34); Mean Corpuscular Hgb Conc 35.7 g/dL (32-36); Mean Corpuscular Volume 86.6 fL (80-100); Mean Platelet Volume 9.9 fL (7.4-10.4); Monocytes % (auto) 7.7 %; Neutrophils # (auto) 4.77 K/uL (1.4-6.5); Neutrophils % (auto) 73.2 %; Platelet Count 146 K/uL (130-400); RDW Coefficient of Variation 14.3 % (11.5-14.5); RDW Standard Deviation 45.1 fL (36.4-46.3); Red Blood Count 4.24 M/uL (4.7-6.1); White Blood Count 6.51 K/uL (4.8-10.8)
[2021-01-28 08:17] LABS: Calcium 8.3 mg/dl (8.5-10.1); Creatinine Clr Calc Pharmacy 62.8 ml/min; Est GFR (African American) 74.1 ml/min; Est GFR (Non-African American) 63.9 ml/min
[2021-01-28] MEDS: GABAPENTIN 300 MG CAP PO SCH ×3 (08:45→19:14)
[2021-01-28] MEDS: ASPIRIN 81 MG ECTAB PO SCH (08:45)
[2021-01-28] MEDS: INSULIN ASPART 100 UNITS/ML 3 ML PEN SC SCH ×4 (08:46→21:38)
[2021-01-28 08:56] LABS: Estimated Average Glucose 146 mg/dl; Hemoglobin A1C 6.7 % (4.5-5.6)
[2021-01-28] MEDS ORDERED: WARFARIN SOD 5 MG TAB PO SCH ×2 (09:00→16:00)
[2021-01-28 10:12] LABS: INR 1.5 (0.9-1.1); Prothrombin Time 14.7 Seconds (9.0-12.0)
[2021-01-28] MEDS: ACETAMINOPHEN 500 MG TAB PO PRN ×2 (12:25→19:26)
--- NOTE | 2021-01-28 13:29 | Consultation Report ---
NEUROLOGY CONSULTATION DATE OF CONSULTATION: 01/28/2021 CHIEF COMPLAINT: Stroke. HISTORY OF PRESENT ILLNESS: A 70-year-old male with a history of type 2 diabetes, hyperlipidemia, recurrent venous thromboembolism in 1983 and 1993, on Coumadin and a remote history of smoking, who presented to the Emergency Department yesterday for left hand weakness and left-sided facial droop. The patient was referred from his PCP. Symptoms started on 01/26, approximately at 9:00 a.m. He had some intermittent blurred vision as well as noted his left hand to be weak and he dropped his cell phone. The weakness in his left hand and arm have improved, but not back to normal. He was noted to have a left facial droop and referred to the Emergency Department. In the Emergency Department, CT of the head and CTA of the head and neck showed a subacute right MCA infarct. Neurology was consulted upon admission. ALLERGIES: No known allergies. HOME MEDICATIONS: Calcium, B complex vitamin, Tylenol, cinnamon, Coenzyme Q10, cranberry, gabapentin 300 mg 3 times daily, metformin 500 mg twice daily, simvastatin 20 mg, Coumadin. PAST MEDICAL HISTORY: BPH, type 2 diabetes, hyperlipidemia, history of DVT. PAST SURGICAL HISTORY: Colonoscopy, history of tympanoplasty of the right ear, status post appendectomy. FAMILY HISTORY: Diabetes and heart disease. SOCIAL HISTORY: Former smoker. He is . Denies any alcohol use. REVIEW OF SYSTEMS: All review of systems was performed and negative except as noted above in the HPI. PHYSICAL EXAMINATION: GENERAL: Awake, alert, oriented to person, place, and time. VITAL SIGNS: Blood pressure 128/74, pulse is 73, respiratory rate is 20, oxygen saturation is 96% on room air, temperature is 36.8 degrees Celsius. HEENT: Head is normocephalic and atraumatic. Pupils are equal and symmetric. Extraocular muscles intact. LUNGS: Respiratory effort is nonlabored. CARDIAC: Pulses are normal. ABDOMEN: Nondistended. NEUROLOGIC: Patient is awake alert oriented to person place and time. His speech is mildly slurred. Comprehension is intact he is able to repeat. Extraocular muscles are intact pupils are symmetric mild left facial droop. Weakness noted in the left upper extremity compared to the right. Left lower extremity is normal. Dayna sign is negative tongue is midline no abrasions. DIAGNOSTIC TESTING AND LABORATORY VALUES: WBC 6.51, hemoglobin 13.1, platelet count 146. Sodium 137, potassium 4.0, chloride 105, carbon dioxide 25, BUN 23, creatinine 1.14, glucose 135. Imaging: MRI of the brain; there is a large acute to subacute infarct in the posterior right frontal lobe. There is no evidence of hemorrhage or mass effect. No additional foci of acute ischemia are identified. Head and neck CTA showed band-like hypodensity within the right frontotemporal region consistent with acute to subacute right MCA territory infarct. Diminished perfusion within the superior division of the right MCA, likely corresponding to acute to subacute infarct. No focal thrombus identified. No high-grade stenosis or occlusion. ASSESSMENT AND PLAN: A 70-year-old male with a history of thromboembolism, on Coumadin with labile INRs, recently admitted with a subtherapeutic INR and acute to subacute right middle cerebral artery ischemic stroke with left-sided weakness and facial droop. MRI confirms an embolic-appearing right middle cerebral artery ischemic stroke. Given the labile INRs with the use of Coumadin, I would recommend switching Coumadin to Eliquis for thromboembolism prophylaxis. I discussed with patient and he is agreeable. Agree with starting aspirin 81 mg daily as recommended by Dr. Contreras. Patient has no prior history of stroke or any known evidence of paroxysmal atrial fibrillation. Recent transthoracic echocardiogram was completed and showed a normal ejection fraction with no cardiac thrombus. There was no shunt or septal defect. Recommend physical therapy and occupational therapy. The patient will require cardiac event monitoring as an outpatient. Recommend increasing or changing his statin to a high-intensity statin, Lipitor 40 mg daily. We will stop Coumadin today and start Eliquis tonight. This was discussed with patient he is agreeable. We will plan for repeat CT head noncontrast in on Sunday morning. This plan was discussed with Dr. Jackson. Job ID: [id number] [facility]
--- NOTE | 2021-01-28 18:40 | Hospitalist Progress Note ---
Date of Service January 28, 2021 Assessment & Plan (1) CVA (cerebral vascular accident): Posterior right frontal lobe infarct Present on admission with left-sided weakness and L facial droop CT head showed Right posterior frontal hypodensity involving both deras and white matter. The findings are suspicious for subacute infarct. CTA head and neck showed Bandlike hypodensity within the right frontal temporal region consistent with an acute to subacute right MCA territory infarct. MRI showed large acute to subacute infarct in the posterior right frontal lobe. Echocardiogram showed a normal ejection fraction with no cardiac thrombus. There was no shunt or septal defect. We will transition to Lipitor 40 mg daily Continue physical therapy and Occupational Therapy Patient interested to go to rehab Neuro on board Recommended to discontinue Coumadin then start Eliquis tonight Neuro agreed to start aspirin 81 mg daily We will need to arrange for cardiac event monitoring as an outpatient. We will repeat CT head on Sunday morning to rule out any intracranial hemorrhage (2) Dyslipidemia: Cholesterol changed to Lipitor 40 mg (3) Diabetes mellitus, type 2: Most recent hemoglobin A1c 6.7 on 01/28 Continue holding metformin continue ISS with Accu-Cheks AC at bedtime (4) BPH (benign prostatic hypertrophy): Continue finasteride (5) History of DVT (deep vein thrombosis): Occurred in 1983 in 1993 Coumadin will change to Eliquis (6) DVT prophylaxis: Will start on Eliquis CODE: Full code Dispo Plan to go to rehab Admission and Anticipated Discharge Date Admission Date: January 27, 2021 Subjective Patient was seen and examined for follow-up of left side weakness and facial droop Lying in bed with no acute distress watching TV Patient said he continues to have visual disturbances and weakness in the left lower extremity Denies any chest pain, palpitation, dizziness, shortness of breath. Review of Systems Review of Systems: All systems reviewed & are unremarkable except as noted in Subjective Physical Exam Physical Exam: General- No acute distress Head- atraumatic Eyes- PERRL, EOMI, ENT- oropharynx clear Neck- supple, no JVD Lungs- clear to auscultation Heart- regular rhythm; no murmur Abdomen- normal bowel sounds, soft, nontender Extremities- + left upper extremity weakness, left facial droop Neuro- alert, oriented x 3; PERRL, EOMI; no facial palsy; no dysarthria Skin- warm & dry Results & Data Results & Data ([facility]) Vital Signs (Past 12 Hours) Vital Signs Temp Pulse Pulse Resp BP Pulse Ox 01/28/21 16:30 62 01/28/21 15:25 36.7 C 61 19 146/99 H 94 01/28/21 12:09 36.8 C 66 19 145/78 H 90 01/28/21 08:00 73 01/28/21 07:30 36.8 C 70 20 128/74 96 (1) CVA (cerebral vascular accident) CVA mechanism: unspecified Qualified Code(s): I63.9 - Cerebral infarction, unspecified
[2021-01-28] MEDS: SIMVASTATIN 40 MG TAB PO SCH (19:14)
[2021-01-28] MEDS: FINASTERIDE 5 MG TAB PO SCH (19:14)
[2021-01-28] MEDS: APIXABAN 5 MG TABLET PO SCH (19:14)
[2021-01-29 07:13] LABS: Basophils # (auto) 0.03 K/uL (0-0.2); Basophils % (auto) 0.5 %; Eosinophils # (auto) 0.12 K/uL (0-0.5); Hemoglobin 13.6 g/dL (14.0-18.0); Immature Granulocytes # (auto) 0.03 K/uL (0.00-0.02); Immature Granulocytes % (auto) 0.5 %; Lymphocytes # (auto) 1.04 K/uL (1.2-3.4); Lymphocytes % (auto) 17.7 %; Mean Corpuscular Hemoglobin 30.7 pg (25-34); Mean Corpuscular Hgb Conc 34.9 g/dL (32-36); Mean Platelet Volume 9.7 fL (7.4-10.4); Monocytes # (auto) 0.45 K/uL (0.11-0.59); Monocytes % (auto) 7.6 %; Neutrophils # (auto) 4.22 K/uL (1.4-6.5); Neutrophils % (auto) 71.7 %; Platelet Count 138 K/uL (130-400); RDW Coefficient of Variation 14.2 % (11.5-14.5); RDW Standard Deviation 45.9 fL (36.4-46.3); Red Blood Count 4.43 M/uL (4.7-6.1); White Blood Count 5.89 K/uL (4.8-10.8)
[2021-01-29 07:42] LABS: BUN Creatinine Ratio 21.7 (10-20); Calcium 8.6 mg/dl (8.5-10.1); Creatinine Clr Calc Pharmacy 64.8 ml/min; Est GFR (African American) 77.3 ml/min; Est GFR (Non-African American) 66.7 ml/min; Potassium 4.2 mmol/L (3.5-5.1)
[2021-01-29] MEDS: ASPIRIN 81 MG ECTAB PO SCH (07:53)
[2021-01-29] MEDS: INSULIN ASPART 100 UNITS/ML 3 ML PEN SC SCH ×4 (07:54→21:12)
[2021-01-29] MEDS: GABAPENTIN 300 MG CAP PO SCH ×3 (07:54→19:35)
[2021-01-29] MEDS ORDERED: ATORVASTATIN 40 MG TAB PO SCH (09:00)
[2021-01-29] MEDS: APIXABAN 5 MG TABLET PO SCH ×2 (09:08→19:36)
[2021-01-29] MEDS: ATORVASTATIN 40 MG TAB PO SCH (19:36)
[2021-01-29] MEDS: FINASTERIDE 5 MG TAB PO SCH (19:36)
--- NOTE | 2021-01-29 19:44 | Hospitalist Progress Note ---
Date of Service January 29, 2021 Assessment & Plan (1) CVA (cerebral vascular accident): Posterior right frontal lobe infarct Present on admission with left-sided weakness and L facial droop CT head showed Right posterior frontal hypodensity involving both deras and white matter. The findings are suspicious for subacute infarct. CTA head and neck showed Bandlike hypodensity within the right frontal temporal region consistent with an acute to subacute right MCA territory infarct. MRI showed large acute to subacute infarct in the posterior right frontal lobe. Echocardiogram showed a normal ejection fraction with no cardiac thrombus. There was no shunt or septal defect. We will transition to Lipitor 40 mg daily Continue physical therapy and Occupational Therapy Patient interested to go to rehab Neuro on board Recommended to discontinue Coumadin then start Eli[facility] Neuro agreed to start aspirin 81 mg daily We will need to arrange for cardiac event monitoring as an outpatient. We will repeat CT head on Sunday morning to rule out any intracranial hemorrhage Waiting for placement (2) Dyslipidemia: Cholesterol changed to Lipitor 40 mg (3) Diabetes mellitus, type 2: Most recent hemoglobin A1c 6.7 on 01/28 Continue holding metformin continue ISS with Accu-Cheks AC at bedtime (4) BPH (benign prostatic hypertrophy): Continue finasteride (5) History of DVT (deep vein thrombosis): Occurred in 1983 in 1993 Coumadin will change to Eliquis (6) DVT prophylaxis: Will start on Eliquis CODE: Full code Dispo Plan to go to rehab Admission and Anticipated Discharge Date Admission Date: January 27, 2021 Subjective Patient was seen and examined for follow-up of left side weakness and facial droop Lying in bed with no acute distress watching TV Denies any chest pain, palpitation, dizziness, shortness of breath. Review of Systems Review of Systems: All systems reviewed & are unremarkable except as noted in Subjective Physical Exam Physical Exam: General- No acute distress Head- atraumatic Eyes- PERRL, EOMI, ENT- oropharynx clear Neck- supple, no JVD Lungs- clear to auscultation Heart- regular rhythm; no murmur Abdomen- normal bowel sounds, soft, nontender Extremities- + left upper extremity weakness, left facial droop Neuro- alert, oriented x 3; PERRL, EOMI; no facial palsy; no dysarthria Skin- warm & dry Results & Data Results & Data ([facility]) Vital Signs (Past 12 Hours) Vital Signs Temp Pulse Resp BP Pulse Ox 01/29/21 19:07 36.8 C 80 18 118/68 94 01/29/21 15:20 36.7 C 63 17 142/86 H 97 01/29/21 11:06 37.0 C 71 18 132/81 97 (1) CVA (cerebral vascular accident) CVA mechanism: unspecified Qualified Code(s): I63.9 - Cerebral infarction, unspecified
[2021-01-30 06:08] LABS: Basophils # (auto) 0.03 K/uL (0-0.2); Basophils % (auto) 0.5 %; Eosinophils # (auto) 0.16 K/uL (0-0.5); Eosinophils % (auto) 2.6 %; Hematocrit (blood only) 38.6 % (42-52); Hemoglobin 13.6 g/dL (14.0-18.0); Immature Granulocytes # (auto) 0.03 K/uL (0.00-0.02); Immature Granulocytes % (auto) 0.5 %; Lymphocytes # (auto) 1.17 K/uL (1.2-3.4); Lymphocytes % (auto) 19.1 %; Mean Corpuscular Hemoglobin 31.3 pg (25-34); Mean Corpuscular Hgb Conc 35.2 g/dL (32-36); Mean Corpuscular Volume 88.9 fL (80-100); Mean Platelet Volume 9.9 fL (7.4-10.4); Monocytes % (auto) 8.2 %; Neutrophils # (auto) 4.24 K/uL (1.4-6.5); Neutrophils % (auto) 69.1 %; Platelet Count 140 K/uL (130-400); RDW Coefficient of Variation 14.1 % (11.5-14.5); RDW Standard Deviation 46.1 fL (36.4-46.3); Red Blood Count 4.34 M/uL (4.7-6.1); White Blood Count 6.13 K/uL (4.8-10.8)
[2021-01-30 06:34] LABS: BUN Creatinine Ratio 24.9 (10-20); Calcium 8.5 mg/dl (8.5-10.1); Creatinine Clr Calc Pharmacy 61.3 ml/min; Est GFR (African American) 72.5 ml/min; Est GFR (Non-African American) 62.6 ml/min; Potassium 4.3 mmol/L (3.5-5.1)
[2021-01-30] MEDS: APIXABAN 5 MG TABLET PO SCH ×2 (07:57→19:25)
[2021-01-30] MEDS: GABAPENTIN 300 MG CAP PO SCH ×3 (07:58→19:25)
[2021-01-30] MEDS: ASPIRIN 81 MG ECTAB PO SCH (07:58)
[2021-01-30] MEDS: INSULIN ASPART 100 UNITS/ML 3 ML PEN SC SCH ×4 (07:59→20:52)
--- NOTE | 2021-01-30 12:40 | CT Scan Report ---
HEAD CT NONCONTRAST CT DOSE: 537.48 mGy.cm HISTORY: Right-sided infarct. Follow-up. Stroke like symptoms. Headache. Vision changes. r/o any int racranial abnormality TECHNIQUE: Multiaxial CT images of the head were performed without the use of intravenous contrast. A utomated exposure control was utilized for this study. A dose lowering technique was utilized adheri ng to the principles of ALARA. Comparison: Head CT 01/27/2021. Findings: The paranasal sinuses are clear. Small bilateral mastoid effusions, unchanged. The calvariu m and skull base are intact. Progressive hypodensity within the right frontal acute infarct consisten t with expected evolution. No intracranial hemorrhage identified. No mass. No additional infarcts [place] ntified within the brain. The ventricles are normal in size. Impression: 1. Expected evolution of the right frontal subacute infarct. No evidence for hemorrhagic transformati on. 2. No additional infarcts identified. ACT 112: Negative or not required by law. Electronically signed by: Deshawn Montesinos M.D. 01/30/2021 12:38 PM
--- NOTE | 2021-01-30 17:05 | Neurology Progress Note ---
Date of Service January 30, 2021 Assessment & Plan (1) Subtherapeutic international normalized ratio (INR): (2) Hypertension: (3) CVA (cerebral vascular accident): Mr. Solis is a pleasant 70-year-old male with history of thromboembolism x2 on anticoagulation with recent embolic appearing right MCA ischemic stroke with left-sided weakness and dysarthria. Symptoms have improved since admission. Patient is awaiting rehab. Repeat CT head noncontrast shows no evidence of hemorrhagic conversion. During this admission the decision was made to switch Coumadin to Eliquis given the labile INRs. Patient was also started on aspirin on this admission for secondary stroke prevention. Patient will be discharged to acute rehab on Eliquis and aspirin. He will require neurology follow-up in 8 weeks. I do believe the patient would benefit from a cardiac event monitor as an outpatient for further evaluation of paroxysmal atrial fibrillation. Also need to consider a formal coagulopathy work-up as an outpatient. Please contact me with any additional questions or concerns. Admission and Anticipated Discharge Date Admission Date: January 27, 2021 Subjective Patient was seen and examined this afternoon. A friend was visiting at bedside with him. He states overall he is doing well. He denies any new complaints or concerns. He is tolerating Eliquis well. He is happy to switch off of Coumadin as he had previously had issues with labile INR as well as he had to restrict his diet. He is looking forward to going to rehab hopefully earlier this week. Physical Exam Physical Exam: Patient is awake alert oriented to person place and time his speech is clear his comprehension is intact his face is symmetric. His eyes are midline extraocular muscles are intact pupils are symmetric facial sensations intact sensation is intact to light touch muscle strength is 5 out of 5 throughout with no appreciable weakness in the upper extremities. Is no tremor or myoclonic jerks. Results & Data ([facility]) Vital Signs (Past 12 Hours) Vital Signs Temp Pulse Pulse Resp BP BP Pulse Ox 01/30/21 15:57 36.7 C 75 16 159/72 H 97 01/30/21 11:33 36.6 C 75 17 157/96 H 97 01/30/21 10:04 59 L 01/30/21 07:01 36.7 C 63 18 148/91 H 94 (1) Hypertension Hypertension type: primary hypertension Qualified Code(s): I10 - Essential (primary) hypertension (2) CVA (cerebral vascular accident) CVA mechanism: unspecified Qualified Code(s): I63.9 - Cerebral infarction, unspecified
--- NOTE | 2021-01-30 18:39 | Hospitalist Progress Note ---
Date of Service January 30, 2021 Assessment & Plan (1) CVA (cerebral vascular accident): Posterior right frontal lobe infarct Present on admission with left-sided weakness and L facial droop CT head showed Right posterior frontal hypodensity involving both deras and white matter. The findings are suspicious for subacute infarct. CTA head and neck showed Bandlike hypodensity within the right frontal temporal region consistent with an acute to subacute right MCA territory infarct. MRI showed large acute to subacute infarct in the posterior right frontal lobe. Echocardiogram showed a normal ejection fraction with no cardiac thrombus. There was no shunt or septal defect. We will transition to Lipitor 40 mg daily Continue physical therapy and Occupational Therapy Patient interested to go to rehab Neuro on board Recommended to discontinue Coumadin then start on Eliquis Neuro agreed to start aspirin 81 mg daily We will need to arrange for cardiac event monitoring as an outpatient. Repeat CT head showed Expected evolution of the right frontal subacute infarct. No evidence for hemorrhagic transformation. Continue Eliquis, Aspirin and statin Waiting for placement to rehab (2) Dyslipidemia: Cholesterol changed to Lipitor 40 mg (3) Diabetes mellitus, type 2: Most recent hemoglobin A1c 6.7 on 01/28 Continue holding metformin continue ISS with Accu-Cheks AC at bedtime (4) BPH (benign prostatic hypertrophy): Continue finasteride (5) History of DVT (deep vein thrombosis): Occurred in 1983 in 1993 Coumadin will change to Eliquis Continue Eliquis BID HTN Starting on Amlodipine 2.5 mg daily Continue monitor BP (6) DVT prophylaxis: on Eliquis CODE: Full code Dispo Plan to go to rehab Admission and Anticipated Discharge Date Admission Date: January 27, 2021 Subjective Patient was seen and examined for follow-up of left side weakness and facial droop Lying in bed with no acute distress Waiting for placement to discharge to rehab Denies any chest pain, palpitation, dizziness, shortness of breath. Review of Systems Review of Systems: All systems reviewed & are unremarkable except as noted in Subjective Physical Exam Physical Exam: General- No acute distress Head- atraumatic Eyes- PERRL, EOMI, ENT- oropharynx clear Neck- supple, no JVD Lungs- clear to auscultation Heart- regular rhythm; no murmur Abdomen- normal bowel sounds, soft, nontender Extremities- + left upper extremity weakness, left facial droop Neuro- alert, oriented x 3; PERRL, EOMI; no facial palsy; no dysarthria Skin- warm & dry Results & Data Results & Data ([facility]) Vital Signs (Past 12 Hours) Vital Signs Temp Pulse Pulse Resp BP BP Pulse Ox 01/30/21 15:57 36.7 C 75 16 159/72 H 97 01/30/21 11:33 36.6 C 75 17 157/96 H 97 01/30/21 10:04 59 L 01/30/21 07:01 36.7 C 63 18 148/91 H 94 (1) CVA (cerebral vascular accident) CVA mechanism: unspecified Qualified Code(s): I63.9 - Cerebral infarction, unspecified
[2021-01-30] MEDS: FINASTERIDE 5 MG TAB PO SCH (19:25)
[2021-01-30] MEDS: ATORVASTATIN 40 MG TAB PO SCH (19:25)
[2021-01-31] MEDS: INSULIN ASPART 100 UNITS/ML 3 ML PEN SC SCH ×4 (08:01→20:26)
[2021-01-31] MEDS: amLODIPine BESYLATE 5 MG TAB PO SCH (08:26)
[2021-01-31] MEDS: ASPIRIN 81 MG ECTAB PO SCH (08:27)
[2021-01-31] MEDS: APIXABAN 5 MG TABLET PO SCH ×2 (08:27→20:24)
[2021-01-31] MEDS: GABAPENTIN 300 MG CAP PO SCH ×3 (08:27→20:25)
--- NOTE | 2021-01-31 13:13 | Hospitalist Progress Note ---
Date of Service January 31, 2021 Assessment & Plan (1) CVA (cerebral vascular accident): Posterior right frontal lobe infarct Present on admission with left-sided weakness and L facial droop CT head showed Right posterior frontal hypodensity involving both deras and white matter. The findings are suspicious for subacute infarct. CTA head and neck showed Bandlike hypodensity within the right frontal temporal region consistent with an acute to subacute right MCA territory infarct. MRI showed large acute to subacute infarct in the posterior right frontal lobe. Echocardiogram showed a normal ejection fraction with no cardiac thrombus. There was no shunt or septal defect. We will transition to Lipitor 40 mg daily Continue physical therapy and Occupational Therapy Patient interested to go to rehab Neuro on board Recommended to discontinue Coumadin then start on Eliquis Neuro agreed to start aspirin 81 mg daily We will need to arrange for cardiac event monitoring as an outpatient. Repeat CT head showed Expected evolution of the right frontal subacute infarct. No evidence for hemorrhagic transformation. Continue Eliquis, Aspirin and statin Waiting for placement to rehab (2) Dyslipidemia: Cholesterol changed to Lipitor 40 mg (3) Diabetes mellitus, type 2: Most recent hemoglobin A1c 6.7 on 01/28 Continue holding metformin continue ISS with Accu-Cheks AC at bedtime (4) BPH (benign prostatic hypertrophy): Continue finasteride (5) History of DVT (deep vein thrombosis): Occurred in 1983 in 1993 Coumadin changed to Eliquis Continue Eliquis BID HTN Continue Amlodipine 2.5 mg daily Continue monitor BP (6) DVT prophylaxis: On Eliquis CODE: Full code Disposition Waiting for placement to rehab Admission and Anticipated Discharge Date Admission Date: January 27, 2021 Subjective Patient was seen and examined for follow-up of left side weakness and facial droop Lying in bed with no acute distress Waiting for placement to discharge to rehab Denies any chest pain, palpitation, dizziness, shortness of breath. Review of Systems Review of Systems: All systems reviewed & are unremarkable except as noted in Subjective Physical Exam Physical Exam: General- No acute distress Head- atraumatic Eyes- PERRL, EOMI, ENT- oropharynx clear Neck- supple, no JVD Lungs- clear to auscultation Heart- regular rhythm; no murmur Abdomen- normal bowel sounds, soft, nontender Extremities- + left upper extremity weakness, left facial droop Neuro- alert, oriented x 3; PERRL, EOMI; no facial palsy; no dysarthria Skin- warm & dry Results & Data Results & Data ([facility]) Vital Signs (Past 12 Hours) Vital Signs Temp Pulse Pulse Resp BP Pulse Ox 01/31/21 10:59 36.6 C 82 19 155/96 H 95 01/31/21 08:00 75 01/31/21 07:24 36.5 C 74 19 130/88 95 01/31/21 03:22 36.7 C 85 18 131/90 96 (1) CVA (cerebral vascular accident) CVA mechanism: unspecified Qualified Code(s): I63.9 - Cerebral infarction, unspecified
[2021-01-31] MEDS ORDERED: WARFARIN SOD 2.5 MG TAB PO SCH (16:00)
[2021-01-31] MEDS: ATORVASTATIN 40 MG TAB PO SCH (20:24)
[2021-01-31] MEDS: FINASTERIDE 5 MG TAB PO SCH (20:24)
[2021-02-01] MEDS: ASPIRIN 81 MG ECTAB PO SCH (08:18)
[2021-02-01] MEDS: GABAPENTIN 300 MG CAP PO SCH ×3 (08:18→20:50)
[2021-02-01] MEDS: amLODIPine BESYLATE 5 MG TAB PO SCH (08:18)
[2021-02-01] MEDS: APIXABAN 5 MG TABLET PO SCH ×2 (08:18→20:50)
[2021-02-01] MEDS: INSULIN ASPART 100 UNITS/ML 3 ML PEN SC SCH ×4 (08:19→21:08)
[2021-02-01] MEDS: ACETAMINOPHEN 500 MG TAB PO PRN (08:21)
--- NOTE | 2021-02-01 19:44 | Hospitalist Progress Note ---
Date of Service February 01, 2021 Assessment & Plan (1) CVA (cerebral vascular accident): Posterior right frontal lobe infarct Present on admission with left-sided weakness and L facial droop CT head showed Right posterior frontal hypodensity involving both deras and white matter. The findings are suspicious for subacute infarct. CTA head and neck showed Bandlike hypodensity within the right frontal temporal region consistent with an acute to subacute right MCA territory infarct. MRI showed large acute to subacute infarct in the posterior right frontal lobe. Echocardiogram showed a normal ejection fraction with no cardiac thrombus. There was no shunt or septal defect. We will transition to Lipitor 40 mg daily Continue physical therapy and Occupational Therapy Patient interested to go to rehab Neuro on board Recommended to discontinue Coumadin then start on Eliquis Neuro agreed to start aspirin 81 mg daily We will need to arrange for cardiac event monitoring as an outpatient. Repeat CT head showed Expected evolution of the right frontal subacute infarct. No evidence for hemorrhagic transformation. Continue Eliquis, Aspirin and statin Waiting for placement to rehab (2) Dyslipidemia: Cholesterol changed to Lipitor 40 mg (3) Diabetes mellitus, type 2: Most recent hemoglobin A1c 6.7 on 01/28 Continue holding metformin continue ISS with Accu-Cheks AC at bedtime (4) BPH (benign prostatic hypertrophy): Continue finasteride (5) History of DVT (deep vein thrombosis): Occurred in 1983 in 1993 Coumadin changed to Eliquis Continue Eliquis BID HTN Continue Amlodipine 2.5 mg daily Continue monitor BP (6) DVT prophylaxis: On Eliquis CODE: Full code Disposition Waiting for placement to rehab Admission and Anticipated Discharge Date Admission Date: January 27, 2021 Subjective Patient was seen and examined for follow-up of left side weakness and facial droop Lying in bed with no acute distress Pt said that his left side weakness is getting stronger Waiting for placement to discharge to rehab Denies any chest pain, palpitation, dizziness, shortness of breath. Review of Systems Review of Systems: All systems reviewed & are unremarkable except as noted in Subjective Physical Exam Physical Exam: General- No acute distress Head- atraumatic Eyes- PERRL, EOMI, ENT- oropharynx clear Neck- supple, no JVD Lungs- clear to auscultation Heart- regular rhythm; no murmur Abdomen- normal bowel sounds, soft, nontender Extremities- + left upper extremity weakness, left facial droop Neuro- alert, oriented x 3; PERRL, EOMI; no facial palsy; no dysarthria Skin- warm & dry Results & Data Results & Data ([facility]) Vital Signs (Past 12 Hours) Vital Signs Temp Pulse Resp BP BP Pulse Ox 02/01/21 14:59 36.2 C L 62 19 157/88 H 95 02/01/21 11:40 36.4 C L 58 L 17 137/86 95 02/01/21 07:45 36.5 C 55 L 16 126/78 95 (1) CVA (cerebral vascular accident) CVA mechanism: unspecified Qualified Code(s): I63.9 - Cerebral infarction, unspecified
[2021-02-01] MEDS: FINASTERIDE 5 MG TAB PO SCH (20:50)
[2021-02-01] MEDS: ATORVASTATIN 40 MG TAB PO SCH (20:50)
[2021-02-02] MEDS: GABAPENTIN 300 MG CAP PO SCH ×2 (08:12→14:23)
[2021-02-02] MEDS: APIXABAN 5 MG TABLET PO SCH ×2 (08:12→16:36)
[2021-02-02] MEDS: ASPIRIN 81 MG ECTAB PO SCH (08:12)
[2021-02-02] MEDS: amLODIPine BESYLATE 5 MG TAB PO SCH (08:12)
[2021-02-02] MEDS: INSULIN ASPART 100 UNITS/ML 3 ML PEN SC SCH ×2 (08:14→12:00)
[2021-02-02 15:00] LABS: 18KDIGG Band NON-REACTIVE; 23KDIGG Band NON-REACTIVE; 23KDIGM Band REACTIVE; 28KDIGG Band NON-REACTIVE; 30KDIGG Band NON-REACTIVE; 39KDIGG Band NON-REACTIVE; 39KDIGM Band NON-REACTIVE; 41KDIGG Band REACTIVE; 41KDIGM Band NON-REACTIVE; 45KDIGG Band NON-REACTIVE; 58KDIGG Band REACTIVE; 66KDIGG Band NON-REACTIVE; 93KDIGG Band NON-REACTIVE; Lyme Antibodies, WB IgG NEGATIVE (NEGATIVE); Lyme Antibodies, WB IgM NEGATIVE (NEGATIVE)
--- NOTE | 2021-02-02 16:17 | Hospitalist Progress Note ---
Date of Service February 02, 2021 Assessment & Plan (1) CVA (cerebral vascular accident): Posterior right frontal lobe infarct Present on admission with left-sided weakness and L facial droop CT head showed Right posterior frontal hypodensity involving both deras and white matter. The findings are suspicious for subacute infarct. CTA head and neck showed Bandlike hypodensity within the right frontal temporal region consistent with an acute to subacute right MCA territory infarct. MRI showed large acute to subacute infarct in the posterior right frontal lobe. Echocardiogram showed a normal ejection fraction with no cardiac thrombus. There was no shunt or septal defect. We will transition to Lipitor 40 mg daily Neuro on board was on coumadin for hx of DVT discontinued Coumadin then start on Eliquis for stroke prophylaxis Neuro recommends to start aspirin 81 mg daily will need to arrange for cardiac event monitoring as an outpatient. Repeat CT head showed Expected evolution of the right frontal subacute infarct. No evidence for hemorrhagic transformation. Continue Eliquis, Aspirin and statin pt is ambulating independently , with minimum weakness of left arm , wants to go home with out patient physical therapy pt walked on the hallway with no gait disturbance stable to be discharged home (2) Dyslipidemia: Cholesterol changed to Lipitor 40 mg (3) Diabetes mellitus, type 2: Most recent hemoglobin A1c 6.7 on 01/28 metfromin resumed on discharge (4) BPH (benign prostatic hypertrophy): Continue finasteride (5) History of DVT (deep vein thrombosis): Occurred in 1983 in 1993 Coumadin changed to Eliquis Continue Eliquis BID HTN Continue Amlodipine 2.5 mg daily Continue monitor BP (6) DVT prophylaxis: On Eliquis CODE: Full code Disposition discharged to home today Admission and Anticipated Discharge Date Admission Date: January 27, 2021 Subjective Patient was seen and examined for follow-up of left side weakness and facial droop/acute CVA walking on the hallway has no balance or gait disturbance speech is fluent , left sided weakness has improved wants to go home and interested in doing out patient Physical therapy at [facility] Review of Systems Review of Systems: All systems reviewed & are unremarkable except as noted in Subjective Physical Exam Physical Exam: Physical exam: General: No acute distress, alert awake oriented x3 HEENT:non icteric sclera Heart: Regular S1-S2, no carotid bruit, no JVD, no lower extremity edema Lungs: Clear to auscultate, no wheeze or rales Abdomen: Soft nontender, no organomegaly Extremity: No cyanosis, no deformity, strength 3-4/5 on left Neuro: speech fluent , no dysarthria , left sided weakness Psych: Alert awake oriented x3, normal affect Results & Data Results & Data ([facility]) Vital Signs (Past 12 Hours) Vital Signs Temp Pulse Pulse Resp BP BP Pulse Ox 02/02/21 15:26 36.6 C 68 20 131/76 96 02/02/21 11:45 36.4 C L 71 20 124/74 96 02/02/21 08:00 61 02/02/21 07:37 36.6 C 70 20 142/93 H 96 02/02/21 04:15 36.3 C L 73 12 129/81 97 (1) CVA (cerebral vascular accident) CVA mechanism: unspecified Qualified Code(s): I63.9 - Cerebral infarction, unspecified
--- NOTE | 2021-02-02 18:10 | Discharge Summary ---
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 These complaints started yesterday, on 01/26 at approximately 9 AM. Patient reports that his vision was wavy/blurred and is now back to normal. He had a left handed weakness where he dropped his cell phone. Patient reports his weakness in his left arm is improved but not back to normal. He has been ambulating and denies any focal deficit in his lower extremities. Reports currently having a headache behind his eyes and is receiving IV Tylenol. Denies any chest pain or shortness of breath. Patient denies smoking since 1973, no chewing tobacco, no alcohol consumption. His friend, Montse, is present at bedside. Patient follows with the Coumadin clinic with Mikey, he had previously been taking Coumadin 5 mg twice a week and 2.5 mg all other days, but was switched today by the coag clinic to Coumadin 2.5 mg on Mondays and 5 mg all other days. On review of outpatient records, it appears that on 01/06 he was supratherapeutic with an INR of 6.1. At that point in time he was told to hold 2 doses. On 01/13 his INR was subtherapeutic at 1.3, and again subtherapeutic on 01/20 at 1.2. Today in the ER he is again subtherapeutic with an INR of 2.1. In the ER CT of the head and CTA was completed which shows a subacute right MCA infarct without focal thrombus. Principal Diagnosis Acute Stroke Discharge Exam Constitutional WD/WN, vitals as above no acute distress Eyes + anicteric sclerae ENMT external ear and nose normal, oropharynx normal Neck trachea midline, no thyromegaly Respiratory normal respiratory effort, lungs clear to auscultation Cardiovascular RRR, no murmur, no edema Gastrointestinal (Abdomen) Percussion/Palpation: abdomen soft; abdomen nontender Skin no rashes, warm and dry Neurologic Speech / Cognition: normal speech Motor/Sensory: no tremor left sided weakness .strength 3-4/5 Discharge Data Allergies Allergy/AdvReac Type Severity Reaction Status Date / Time No Known Allergies Allergy Unverified 01/27/21 10:11 Consultations 01/27/21 10:58 ED Decision to Admit Stat 01/27/21 14:23 Consult Neurology Routine Ordered Studies 01/27/21 09:39 CT angio head w con Stat CT angio neck with con Stat CT head/brain wo con Stat 01/27/21 14:23 MR brain wo con Stat 01/30/21 07:33 CT head/brain wo con Routine Hospital Course (1) CVA (cerebral vascular accident): Posterior right frontal lobe infarct Present on admission with left-sided weakness and L facial droop CT head showed Right posterior frontal hypodensity involving both deras and white matter. The findings are suspicious for subacute infarct. CTA head and neck showed Bandlike hypodensity within the right frontal temporal region consistent with an acute to subacute right MCA territory infarct. MRI showed large acute to subacute infarct in the posterior right frontal lobe. Echocardiogram showed a normal ejection fraction with no cardiac thrombus. There was no shunt or septal defect. We will transition to Lipitor 40 mg daily Neuro on board was on coumadin for hx of DVT discontinued Coumadin then start on Eliquis for stroke prophylaxis Neuro recommends to start aspirin 81 mg daily will need to arrange for cardiac event monitoring as an outpatient. Repeat CT head showed Expected evolution of the right frontal subacute infarct. No evidence for hemorrhagic transformation. Continue Eliquis, Aspirin and statin pt is ambulating independently , with minimum weakness of left arm , wants to go home with out patient physical therapy pt walked on the hallway with no gait disturbance stable to be discharged home (2) Dyslipidemia: Cholesterol changed to Lipitor 40 mg (3) Diabetes mellitus, type 2: Most recent hemoglobin A1c 6.7 on 01/28 metfromin resumed on discharge (4) BPH (benign prostatic hypertrophy): Continue finasteride (5) History of DVT (deep vein thrombosis): Occurred in 1983 in 1993 Coumadin changed to Eliquis Continue Eliquis BID HTN Continue Amlodipine 2.5 mg daily Continue monitor BP (6) DVT prophylaxis: On Eliquis CODE: Full code Disposition discharged to home today Total Time Total Time Spent Total Time Spent (In Minutes): 35 mins Total Time Includes: Examination of the Patient, Discharge Planning and Medication Reconciliation Discharge Plan Discharge Items Patient Disposition: Home - Self-Care Reason For Visit: CVA Discharge Diagnosis: Acute stroke Activity: Resume your previous activity Activity Comment: Do not drive till evaluated by Neurology Non-emergency contact: Primary Care Provider Call non-emergency contact if: you have any medication questions Follow-up/Referrals: Patricio Contreras MD [Physician] - (Follow up with neurology in 4-6 weeks, please call office to schedule appointment ) Keo Patrick DO [Primary Care Provider] - (Date & Time 02/04/2021 11:20 AM Provider Keo Patrick DO Department General Internal Medicine [facility] ) Diet: Heart Healthy [facility] Attending Provider Instructions: Follow up with Ophthalmology for formal eye exam -you can call and schedule appointment with [facility] at [facility] or [facility] or with any other pattern chain maker supervisor of your choice Do not Drive till seen by neurology and ophthalmology ,it is very unsafe to drive after a stroke with weakness of and possible vision impairment DMV form will be filled you will need a cardiac ( event monitor ) to assess for cardiac arrhythmia -your family physician will scheduled at the [facility] cardiology [facility] Telephone Coin Box Collector Provider Instructions: Risk Factors for Stroke: You can reduce your chances of stroke by working with your medical provider to adopt a healthy lifestyle. Some specific ways to lower your chance of stroke are: * If you are a smoker, now is the time to stop smoking cigarettes * If you are diabetic, improve the control of your blood sugars * Avoid excessive amounts of alcohol * Control high blood pressure * Lose weight if you are overweight * Be sure to lead an active lifestyle * Eat a healthy diet low in salt, cholesterol and fat You should know about other risk factors for stroke that you are unable to control. These include: * Age 55 years or older * Male gender * Certain racial groups: , or / * Family History of Stroke, Mini stroke or Heart Attack * Sickle Cell Disease Follow Up: It is important for you to keep your follow up appointments with your medical provider. Who to Call and When: Medical Emergencies: Call 911 immediately if you experience any of the following warning signs and symptoms of Stroke: * Sudden numbness or weakness of the face, arm or leg, especially on one side of the body * Sudden confusion, trouble speaking or understanding * Sudden trouble seeing in one or both eyes * Sudden trouble walking, dizziness, loss of balance or coordination * Sudden severe headache with no cause Do not delay calling 911 if you experience any warning signs or symptoms of a stroke. Delay in seeking medical attention may affect what treatments can be given to you. . Pending Studies at Discharge: No Stand-Alone Forms: My [facility], Smoking Cessation Medications and DC Order Prescriptions: New Eliquis 5 mg Tablet 5 mg PO BID 30 Days Qty: 60 RF: 3 amlodipine [Norvasc] 5 mg Tablet 2.5 mg PO QAM Qty: 30 RF: 3 atorvastatin 40 mg Tablet 40 mg PO QPM Qty: 30 RF: 3 aspirin 81 mg Tablet,Delayed Release (Dr/Ec) 81 mg PO QAM Qty: 30 RF: 3 Continued metformin 500 mg Tablet 500 mg PO BID RF: 0 gabapentin 300 mg Capsule 300 mg PO TID RF: 0 acetaminophen [Tylenol Extra Strength] 500 mg Tablet 500 mg PO Q6H PRN (Reason: PAIN/FEVER) RF: 0 omega-3 fatty acids [Fish Oil Concentrate] 1,000 mg Capsule 1,000 mg PO BID RF: 0 coenzyme Q10 10 mg Capsule 10 mg PO PM RF: 0 cranberry 500 mg Capsule 500 mg PO BID RF: 0 cinnamon bark [Cinnamon] 500 mg Capsule 1,000 mg PO TID RF: 0 Calcium 600 + D(3) 600 mg calcium- 200 unit Capsule 1 tab PO BID RF: 0 Super B Complex + C 150 mg Tablet 1 tab PO PM RF: 0 finasteride 5 mg tablet 5 mg PO PM RF: 0 ondansetron 4 mg Tablet,Disintegrating 4 mg PO Q6H PRN (Reason: Nausea) RF: 0 apple cider vinegar 500 mg Tablet 1,500 mg PO PM RF: 0 Discontinued simvastatin 20 mg Tablet 20 mg PO PM RF: 0 warfarin [Coumadin] 5 mg Tablet 2.5 - 5 mg PO DAILY RF: 0 Discharge Orders: Discharge Order (Routine); Ordered 02/02/21 Ordered By: Codi Alfredo/Other Patient Handouts: Type 2 Diabetes Admission Data Admit Date/Time: 01/27/21 11:19 Attending Provider: Codi Bhatt Admit Provider: Emmett Jackson Primary Care Provider: Keo Patrick Other Providers: Emmett Jackson ; Patricio Contreras ; Estevan Kinsey at [place] Other Interventions: Discharge Summary Assessment (RN) Last Done: 02/02/21 16:12
== END 2021-02-02 17:41 | disposition home or self-care (01) | DRG 65 ==
LOC: ED 08:46 → SUATTDRO 11:19 → 2S 11:19

== ENCOUNTER 2021-03-29 10:04 | Inpatient (IN) ==
[2021-03-29 10:45] LABS: Hematocrit (blood only) 34.4 % (42-52); Hemoglobin 12.2 g/dL (14.0-18.0); Mean Corpuscular Hemoglobin 31.1 pg (25-34); Mean Corpuscular Hgb Conc 35.5 g/dL (32-36); Mean Corpuscular Volume 87.8 fL (80-100); Mean Platelet Volume 9.8 fL (7.4-10.4); Platelet Count 194 K/uL (130-400); RDW Coefficient of Variation 14.5 % (11.5-14.5); RDW Standard Deviation 46.5 fL (36.4-46.3); Red Blood Count 3.92 M/uL (4.7-6.1); White Blood Count 12.02 K/uL (4.8-10.8)
[2021-03-29 10:48] LABS: Appearance Urine Cloudy (Clear); Bilirubin Urine Negative (Negative); Blood Urine 3+ (Negative); Color Urine Orange; Glucose Urine UA Negative (Negative); Ketones Urine 2+ (Negative); Leukocyte Esterase Urine Trace (Negative); Nitrite Urine Negative (Negative); Protein Urine 1+ (Negative); Specific Gravity Urine 1.014 (1.000-1.030); Urobilinogen Urine Negative (Negative)
[2021-03-29] MEDS ORDERED: SODIUM CHLORIDE 0.9% 1000ML 500 ML IV ONE (10:51)
[2021-03-29] MEDS ORDERED: KETOROLAC TROMETHAMINE 15 MG/ML VIAL IV STA (10:51)
[2021-03-29 11:04] LABS: BUN Creatinine Ratio 14.4 (10-20); Calcium 8.6 mg/dl (8.5-10.1); Creatinine Clr Calc Pharmacy 36.2 ml/min; Est GFR (African American) 39.9 ml/min; Est GFR (Non-African American) 34.5 ml/min; Potassium 3.8 mmol/L (3.5-5.1)
[2021-03-29 11:17] LABS: Bacteria Urine Automated 1+ (Negative); RBC Urine Automated >30 /hpf (0-4)
[2021-03-29 11:19] LABS: Uric Acid Crystals Urine Present (None Prsent)
--- NOTE | 2021-03-29 11:30 | CT Scan Report ---
ABDOMEN AND PELVIS CT WITHOUT CONTRAST CT DOSE: 511.56 mGy.cm HISTORY: L flank pain LLQ pain hematuria TECHNIQUE: Multiaxial CT images of the abdomen and pelvis were performed without contrast. A dose lo wering technique was utilized adhering to the principles of ALARA. COMPARISON STUDY: Abdomen and pelvis CT 02/12/2021. FINDINGS: There again noted multiple bilateral renal calculi measuring up to 6 mm. There is mild left hydronephrosis and left perinephric edema secondary to 2 adjacent obstructing stones within the mid left ureter measuring 4 mm each. These are new from the prior study. No right-sided hydronephrosis or right ureteral stones. The bladder is unremarkable. The prostate gland remains mildly enlarged. Mild dependent changes seen within the lungs posteriorly. The unenhanced liver, gallbladder, pancreas, sp farzana, and adrenal glands are unremarkable. No retroperitoneal lymphadenopathy. There is a left circum aortic renal vein. No pelvic lymphadenopathy. Trace pelvic free fluid. Suboptimal evaluation for kacie l pathology due to the lack of intravenous and oral contrast. However, there is no definite bowel wal l thickening or obstruction. Colonic diverticulosis. No evidence for acute diverticulitis. No fractur es within the visualized osseous structures. IMPRESSION: 1. There are 2 adjacent 4 mm stones within the mid left ureter resulting in mild left hydronephrosis. These are new from the prior study. 2. Bilateral nephrolithiasis. 3. Colonic diverticulosis. No evidence for acute diverticulitis. 4. No definite bowel wall thickening or obstruction. ACT 112: Negative or not required by law. Electronically signed by: Deshwan Montesinos M.D. 03/29/2021 11:29 AM
[2021-03-29] MEDS ORDERED: ACETAMINOPHEN 500 MG TAB PO PRN (13:41)
--- NOTE | 2021-03-29 13:47 | History & Physical Report ---
Date of Service March 29, 2021 Assessment & Plan (1) Hydronephrosis with urinary obstruction due to ureteral calculus: (2) Hematuria: Plan: This is a 70yo M with PMH of frontal lobe CVA on Eliquis, DM II, recurrent DVT, BPH and other medical problems listed below who presents with blood in urine for 2 days and was found to have obstructing ureteral stones and acute kidney injury. Suprapubic and flank pain, hematuria x 2 days VSS, Hgb stable at 12 (baseline hgb ~13) CT abd/pelvis with 2 adjacent 4 mm stones within the mid left ureter resulting in mild left hydronephrosis UA abnormal, possible infection Discussed with urology - recommend IV fluids, straining urine, pain control and NPO @ MN - fine to continue Eliquis for now Will continue to monitor H/H closely (3) Acute kidney injury: Plan: Cr elevated at 1.9 (baseline ~1.1) in setting of obstructing ureteral stones Continue IV fluids Repeat BMP in AM (4) History of DVT (deep vein thrombosis): Plan: Continue Eliquis (5) History of stroke: Plan: Found to have R frontal CVA in January 2021 Continue Eliquis, aspirin, statin (6) Diabetes mellitus, type 2: Plan: A1c 6.8 in September, repeat ordered for AM Hold home agents SSI while in-patient BSG AC HS DVT Ppx: Eliquis Code status: FULL PCP: Celina Dispo: Admitted to med/surg Patient seen in collaboration with Dr. Melissa. Please see addendum. History of Present Illness Chief Complaint: abdominal pain, hematuria Primary Care Provider: Keo Patrick, DO This is a 70yo M with PMH of frontal lobe CVA on Eliquis, DM II, recurrent DVT, BPH and other medical problems listed below who presents with blood in urine for 2 days. Also notes colicky lower abdominal pain since yesterday that is constant and radiating to the left flank and back. Denies any nausea or vomiting. No fever or chills. History of kidney stones, most recently a weeks ago that passed on their own. Follows with Duran Solano PA-C at [facility]. Is on Eliquis per recent stroke in January 2021. Denies any headache, lightheadedness, chest pain, SOB, dysuria, diarrhea or constipation. Allergies Allergy/AdvReac Type Severity Reaction Status Date / Time No Known Allergies Allergy Unverified 03/29/21 12:53 Home Medications Medication Instructions Recorded Confirmed Type finasteride 5 mg tablet (Proscar) 5 mg PO HS 01/27/21 03/29/21 History amlodipine 5 mg tablet (Norvasc) 2.5 mg PO QAM #30 tab 02/02/21 03/29/21 Rx apixaban 5 mg tablet (Eliquis) 5 mg PO BID 30 Days #60 tab 02/02/21 03/29/21 Rx metformin 1,000 mg tablet 1,000 mg PO BIDM 02/12/21 03/29/21 History aspirin 81 mg tablet,delayed 81 mg PO QAM 03/29/21 03/29/21 History release (Aspirin Low Dose) atorvastatin 40 mg tablet (Lipitor) 40 mg PO HS 03/29/21 03/29/21 History gabapentin 300 mg capsule 300 mg PO QID 03/29/21 03/29/21 History (Neurontin) Past Med/Surg History Medical History (Updated 03/29/21 @ 14:17 by Colleen Hernandez PA-C) BPH (benign prostatic hypertrophy) Diabetes mellitus, type 2 Dyslipidemia History of DVT (deep vein thrombosis) Surgical History H/O colonoscopy " 04/02/2014- TVA polyp, diverticulosis " History of tympanoplasty of right ear Status post appendectomy Family History Other Diabetes Heart disease Social History Smoking Status: Former smoker Second Hand Exposure: No; Hx Alcohol Use: No Hx Substance Use: No Preferred Language: Finnish Communication Ability: Effective Warp Hand Required: No Beliefs That Will Affect Care: None marital status: / Current Living Situation: Alone How many Children do You have: 0 Feels Safe at Home: Yes Assistive Devices: None Review of Systems Review of Systems: At least ten systems reviewed and negative except as noted in the HPI. Physical Exam Physical Exam: Please see Dr. Melissa's addendum for physical exam. Results & Data Results & Data ([facility]) Vital Signs (Past 12 Hours) Vital Signs Temp Pulse Pulse Resp BP BP Pulse Ox 03/29/21 13:06 62 14 139/76 94 03/29/21 11:41 61 16 127/76 99 03/29/21 10:19 36.1 C L 95 H 18 151/95 H 97 Laboratory Results Short CBC 03/29/21 Range/Units 10:30 WBC 12.02 H (4.8-10.8) K/uL Hgb 12.2 L (14.0-18.0) g/dL Hct 34.4 L (42-52) % Plt Count 194 (130-400) K/uL BMP 03/29/21 10:30 Sodium 138 Potassium 3.8 Chloride 105 Carbon Dioxide 22 BUN 27 H Creatinine 1.90 H Glucose 97 Calcium 8.6 Urine 03/29/21 Range/Units 10:30 Urine Color [place] Urine Appearance Cloudy A (Clear) Urine pH 5.0 (4.5-7.5) Ur Specific [place] 1.014 (1.000-1.030) Urine Protein 1+ H (Negative) Urine Glucose (UA) Negative (Negative) Diagnostic Findings Abdomen/Pelvis CT 03/29/21 10:[address] WITHOUT CONTRAST CT DOSE: 511.56 mGy.cm HISTORY: L flank pain LLQ pain hematuria TECHNIQUE: Multiaxial CT images of the abdomen and pelvis were performed without contrast. A dose lowering technique was utilized adhering to the principles of ALARA. COMPARISON STUDY: Abdomen and pelvis CT 02/12/2021. FINDINGS: There again noted multiple bilateral renal calculi measuring up to 6 mm. There is mild left hydronephrosis and left perinephric edema secondary to 2 adjacent obstructing stones within the mid left ureter measuring 4 mm each. These are new from the prior study. No right-sided hydronephrosis or right urete ral stones. The bladder is unremarkable. The prostate gland remains mildly enlarged. Mild dependent changes seen within the lungs posteriorly. The unenhanced liver, gallbladder, pancreas, spleen, and adrenal glands are unremarkable. No retroperitoneal lymphadenopathy. There is a left circumaortic renal vein. No pelvic lymphadenopathy. Trace pelvic free fluid. Suboptimal evaluation for bowel pathology due to the lack of intravenous and oral contrast. However, there is no definite bowel wall thickening or obstruction. Colonic diverticulosis. No evidence for acute diverticulitis. No fractures within the visualized osseous structures. IMPRESSION: 1. There are 2 adjacent 4 mm stones within the mid left ureter resulting in mild left hydronephrosis. These are new from the prior study. 2. Bilateral nephrolithiasis. 3. Colonic diverticulosis. No evidence for acute diverticulitis. 4. No definite bowel wall thickening or obstruction. ACT 112: Negative or not required by law. Electronically signed by: Deshawn Montesinos M.D. 03/29/2021 11:29 AM Code Status & VTE Plan VTE Prophylaxis Plan VTE Prophylaxis will be ordered: Yes Supervising Physician Co-Signing Physician Notes I saw this patient with the physician senior executive assistant, I participated in the history, physical, review of systems, and physical exam. I reviewed the medications with the patient and the physician senior executive assistant and helped reconcile the medications. I helped take a detailed family and social history as well. I formulated the assessment and plan personally with the physician senior executive assistant and went over it with the patient. Physical Exam Gen-AAO x 3, NAD, Afebrile Head-NCAT, EOMI, PERRLA, Anicteric Sclera, No Posterior Pharyngeal Erythema Neck-Supple, No JVD, No Thyromegaly, No Masses, No LAD, No Bruits Lungs-Clear to Auscultation Bilaterally, No Rales, No Rhonchi, No Wheezing, No Crepitus Chest-No S4, +S1, +S2, No S3, No Murmurs, No Rubs, No Gallops, No Ectopy Abdomen-Soft, Bowel Sounds Present, Non Tender, Non Distended, No Hepatomegaly, No Splenomegaly, No Palpable Masses, No Rebound, No Rigidity, No Guarding Musculoskeletal-Full Range of Motion Bilaterally, mild L CVAT Extremities-No Cyanosis, No Clubbing, No Edema Nuero-Cranial Nerves II-XII grossly intact, Motor WNL, DTRs WNL, Strength WNL, Non Focal Psych-Normal Mood
[2021-03-29] MEDS ORDERED: cefTRIAXone SODIUM 2,000 MG/70 ML BAG IV STA (14:20)
--- NOTE | 2021-03-29 15:05 | Urology Consultation ---
Date of Consultation March 29, 2021 Assessment & Plan (1) Calculus of left ureter: (2) Hematuria: 70 year-old male patient, with multiple comorbidities, admitted with left flank pain/hematuria secondary to 2 adjacent 4 mm obstructing calculi within the mid left ureter. -Plan of care reviewed with Dr. Doyle. -Patient afebrile. -Labs reviewed - white count mildly elevated at 12.02, creatinine 1.90. -Urine culture pending, on empiric Rocephin. -Imaging reviewed - notable for 2 adjacent 4 mm obstructing stones within the mid left ureter with mild left hydronephrosis. -Given he is afebrile and stable, okay to have diet today. -Recommend supportive care, pain control, Flomax. -Strain all urine. -NPO at midnight, will plan to reassess need for inpatient intervention in AM. -Continue to follow while inpatient. Please consult our service urgently if patient develops fever >101F, intractable pain or nausea, as this will necessitate urgent surgical intervention. 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 States he has had intermittent lower abdominal pain radiating into left flank as well. No reported fevers or chills. Does have a known history of kidney stones, most recently a few weeks ago with reports of spontaneous passage. Urology consulted for ureteral stones with mild hydro, hematuria, MAGY. Patient known to [facility], follows with Dr. Guerrero. Per records, also follows with Duran Solano PA-C at [facility]. Chart review: Afebrile Wbc 12.2 Creatinine 1.90 (previously 1.24 in January 2021) Urinalysis 3+blood, >30RBC, Trace Leukocytes, 5-10 WBC, 1+Bacteria, Negative nitrite Urine culture pending. Currently on IV Ceftriaxone. Imaging: CT abd/pelvis - IMPRESSION: 1. There are 2 adjacent 4 mm stones within the mid left ureter resulting in mild left hydronephrosis. These are new from the prior study. 2. Bilateral nephrolithiasis. 3. Colonic diverticulosis. No evidence for acute diverticulitis. 4. No definite bowel wall thickening or obstruction. Patient seen and examined at bedside. He is alert, awake, and non-toxic in appearance. Currently reports minimal pain to left lower quadrant/left flank pain. Denies dysuria. Continues with intermittent hematuria. Does have baseline urinary urgency/frequency. Feels he empties his bladder well. Denies fevers or chills. Denies nausea or vomiting. Does report spontaneous passage of 1 stone p rior to CT being completed today. Of note, he was seen in the ER on 02/12 for hematuria - CT noted 2 obstructing stones within the distal left ureter with the largest measuring 4 mm. Patient states he did pass two stones since that ER visit, roughly 3 weeks ago. [place] well thereafter until most recent ER visit. Stone composition per chart review - Uric Acid Dihydrate 50% and Calcium Oxalate Monohydrate (Whewellite) 50%. Does have outpatient follow-up with [facility] with Duran Solano PA-C on 04/05/21. Denies additional urologic concerns today. Allergies Allergy/AdvReac Type Severity Reaction Status Date / Time No Known Allergies Allergy Unverified 03/29/21 12:53 Home Medications Medication Instructions Recorded Confirmed Type finasteride 5 mg tablet (Proscar) 5 mg PO HS 01/27/21 03/29/21 History amlodipine 5 mg tablet (Norvasc) 2.5 mg PO QAM #30 tab 02/02/21 03/29/21 Rx apixaban 5 mg tablet (Eliquis) 5 mg PO BID 30 Days #60 tab 02/02/21 03/29/21 Rx metformin 1,000 mg tablet 1,000 mg PO BIDM 02/12/21 03/29/21 History aspirin 81 mg tablet,delayed 81 mg PO QAM 03/29/21 03/29/21 History release (Aspirin Low Dose) atorvastatin 40 mg tablet (Lipitor) 40 mg PO HS 03/29/21 03/29/21 History gabapentin 300 mg capsule 300 mg PO QID 03/29/21 03/29/21 History (Neurontin) Patient History Medical History (Updated 03/29/21 @ 15:10 by JEFF Umana) BPH (benign prostatic hypertrophy) Diabetes mellitus, type 2 Dyslipidemia History of DVT (deep vein thrombosis) Surgical History H/O colonoscopy " 04/02/2014- TVA polyp, diverticulosis " History of tympanoplasty of right ear Status post appendectomy Family History Other Diabetes Heart disease Social History Smoking Status: Former smoker Second Hand Exposure: No; Hx Alcohol Use: No Hx Substance Use: No Preferred Language: Latvian Communication Ability: Effective Grocery Bagger Required: No Beliefs That Will Affect Care: None marital status: / Current Living Situation: Alone How many Children do You have: 0 Feels Safe at Home: Yes Assistive Devices: None Review of Systems Constitutional: as per Subjective / HPI; no fever and no chills Eyes: no problem reported Respiratory: no cough and no dyspnea Cardiovascular: no chest pain and no edema Gastrointestinal: as per Subjective / HPI Genitourinary: + as per Subjective / HPI Musculoskeletal: as per Subjective / HPI Neurologic: + dizziness (Intermittent this AM) Endocrine: no fatigue Hematologic / Lymphatic: + easy bleeding; no easy bruising Physical Exam Constitutional: well developed and well nourished; no acute distress and not ill appearing ENMT: Ears: no external ear abnormality Nose: no external nose abnormality Neck: normal visual inspection and trachea midline Respiratory: normal respiratory effort and able to speak in complete sentences; no respiratory distress and no audible wheezes Cardiovascular: Extremities: no calf tenderness and no edema Gastrointestinal (Abdomen): Inspection/Auscultation: abdomen normal to inspection; abdomen not distended Percussion/Palpation: abdomen soft; abdomen nontender and no guarding Musculoskeletal: Moves all extremities without difficulty. Skin: No visible rashes, lesions, or wounds noted. Neurologic: moves all extremities and awake Psychiatric: Orientation: alert, oriented x 3 and cooperative Affect: euthymic affect Results & Data ([facility]) Vital Signs (Past 12 Hours) Vital Signs Temp Pulse Pulse Resp BP BP Pulse Ox 03/29/21 13:06 62 14 139/76 94 03/29/21 11:41 61 16 127/76 99 03/29/21 10:19 36.1 C L 95 H 18 151/95 H 97 PG Care Time/CCT Total # of Minutes Spent Total Time Spent with Patient: Total time spent is greater than 50% in coordination of care (as documented) at patient's floor/unit and/or counseling patient: Coding Level of Care Code 50901 Initial Inpt Care Lvl 3 Diagnoses Hematuria R31.9 Calculus of left ureter N20.1
[2021-03-29] MEDS ORDERED: POLYETHYLENE (MIRALAX) 17 GM PACK PO PRN (16:01)
[2021-03-29] MEDS ORDERED: DEXTROSE 50% 50 ML SYRINGE IV PRN (16:01)
[2021-03-29] MEDS ORDERED: GLUCAGON FOR INJ 1 MG VIAL SQ PRN (16:01)
[2021-03-29] MEDS ORDERED: ONDANSETRON INJ 2 MG/ML 2 ML VIAL IV PRN (16:01)
[2021-03-29] MEDS ORDERED: CARBOHYDRATES FOR HYPOGLYCEMIA PO PRN (16:01)
[2021-03-29] MEDS ORDERED: MoRPHine SULFATE 2 MG/ML CARP IV PRN (16:01)
[2021-03-29] MEDS ORDERED: GLUCOSE 10 TABS/TUBE PO PRN (16:01)
[2021-03-29] MEDS ORDERED: GLUCOSE 40% GEL 15 GM TUBE PO PRN (16:01)
[2021-03-29] MEDS: POTASSIUM CHLORIDE 20 MEQ in SODIUM CHLORIDE 0.9% 1000ML 1,000 ML IV SCH (17:21)
[2021-03-29] MEDS: INSULIN ASPART 100 UNITS/ML 3 ML PEN SC SCH ×2 (18:21→21:15)
[2021-03-29] MEDS: GABAPENTIN 300 MG CAP PO SCH ×2 (18:21→20:45)
--- NOTE | 2021-03-29 18:58 | Emergency Department Note ---
History of Present Illness General Chief Complaint: Flank Pain Stated Complaint: KIDNEY STONES AND BLADDER INFECTION Time Seen by Provider: 03/29/21 10:36 History of Present Illness Provider Complaint: flank pain Onset (ago): 3 day(s) Pain Consistency: intermittent Location: L flank Radiation: LLQ Severity: moderate Maximum Pain Intensity: 5 Current Pain Intensity: 3 Quality: + stabbing, + sharp and + dull Relieved By: + nothing Exacerbated By: + other (Urinating) Context: + history of similar episodes (Feels similar to kidney stones) Associated Symptoms: + hematuria; no nausea, no vomiting, no diarrhea, no fever, no chills, no constipation, no dysuria, no hematemesis, no hematochezia, no melena, no anorexia, no syncope, no headache, no neck pain, no back pain, no chest pain, no weakness, no breathing difficulty and no numbness Home Medications Medication Instructions Recorded Confirmed Type finasteride 5 mg tablet (Proscar) 5 mg PO HS 01/27/21 03/29/21 History amlodipine 5 mg tablet (Norvasc) 2.5 mg PO QAM #30 tab 02/02/21 03/29/21 Rx apixaban 5 mg tablet (Eliquis) 5 mg PO BID 30 Days #60 tab 02/02/21 03/29/21 Rx metformin 1,000 mg tablet 1,000 mg PO BIDM 02/12/21 03/29/21 History aspirin 81 mg tablet,delayed 81 mg PO QAM 03/29/21 03/29/21 History release (Aspirin Low Dose) atorvastatin 40 mg tablet (Lipitor) 40 mg PO HS 03/29/21 03/29/21 History gabapentin 300 mg capsule 300 mg PO QID 03/29/21 03/29/21 History (Neurontin) Allergies Allergy/AdvReac Type Severity Reaction Status Date / Time No Known Allergies Allergy Unverified 03/29/21 12:53 Past Med/Surg History Medical History (Updated 03/29/21 @ 18:58 by Arsen Ribeiro) BPH (benign prostatic hypertrophy) Diabetes mellitus, type 2 Dyslipidemia History of DVT (deep vein thrombosis) Surgical History H/O colonoscopy " 04/02/2014- TVA polyp, diverticulosis " History of tympanoplasty of right ear Status post appendectomy Family History Other Diabetes Heart disease Social History Smoking Status: Former smoker Second Hand Exposure: No; Do You Dip or Chew Tobacco: No; Tobacco Cessation Education Requested by Patient: No Hx Alcohol Use: No Hx Substance Use: No Preferred Language: Syrian Communication Ability: Effective Dredge Pump Operator Required: No Beliefs That Will Affect Care: None marital status: / Current Living Situation: Alone How many Children do You have: 0 Other Information That Helps Us Care for You: No Feels Safe at Home: Yes and No Is there a partner from a previous relationship who is making you feel unsafe now?: No Any Concerns about Your Family Situation: No Would You Like to Speak to Someone About Your Situation: No Safety Concerns: Feels Safe At This Time Assistive Devices: Glasses Assistive Devices Comment: readers Review of Systems A total of 10 systems reviewed and were otherwise negative Physical Exam Vital Signs: Vital Signs - 24 hr 03/29/21 10:19 03/29/21 11:41 03/29/21 13:06 Temperature 36.1 C L Temperature Source Temporal Artery Sc an Pulse Rate 95 H 62 Pulse Rate [Left R adial] 61 Pulse Rate from Sp O2 Sensor 62 Respiratory Rate 18 16 14 Blood Pressure 151/95 H 139/76 Blood Pressure [Le ft Arm] 127/76 Blood Pressure Cortney n 113 97 Blood Pressure Cortney n [Left Arm] 93 Blood Pressure Pos ition [Left Arm] Lying Pulse Oximetry 97 99 94 Oxygen Delivery Me thod Room Air Sepsis Recent Feve r Within 48 Hours No Sepsis New/Unexpla ined Change in Men pedro luis Status N/A Sepsis Action Take n by Nursing No Action Required Physical Exam: Physical Exam GENERAL: He is oriented to person, place, and time. He appears well-developed and well-nourished. He does not appear distressed. HENT: Exam performed. - Head: Normocephalic and atraumatic. - Right Ear: External ear normal. No mastoid tenderness. - Left Ear: External ear normal. No mastoid tenderness. - Mouth/Throat: The oropharynx is clear and moist. No trismus in the jaw. No dental abscesses or uvula swelling. No oropharyngeal exudate or tonsillar abscesses. EYES: Conjunctivae and EOM are normal. Pupils are equal, round, and reactive to light. Right eye exhibits no discharge. Left eye exhibits no discharge. No scleral icterus. NECK: Normal range of motion. Neck supple. No JVD present. No spinous process tenderness present. No carotid bruit present. No rigidity. No tracheal deviation and normal range of motion present. No Brudzinski's sign and no Kernig's sign noted. CV: Normal rate, regular rhythm, normal heart sounds and intact distal pulses. There is no peripheral edema. Palpable radial pulses bue. PULM/CHEST: Effort normal and breath sounds normal. No respiratory distress. No stridor. He has no wheezes. He has no rales. - Chest Wall: He exhibits no tenderness. ABD: The abdomen is soft. Bowel sounds are normal. He has no distension. No mass is present. There is no tenderness. There is no rebound, no guarding, no Rae's sign and no tenderness at McBurney's point. Rovsig negative. Left- sided CVA tenderness. MUSC/SKEL: Normal range of motion. There is no peripheral edema, tenderness or deformity. LYMPH: No cervical adenopathy. NEURO: He is alert and oriented to person, place, and time. He has normal strength. No cranial nerve deficit or sensory deficit. Coordination and gait normal. GCS eye subscore is 4. GCS verbal subscore is 5. GCS motor subscore is 6. Cerebellar tests wnl. SKIN: Skin is warm and dry. He is not diaphoretic. PSYCH: He has a normal mood and affect. Behavior is normal. Judgment and thought content normal. Course Course 1036: The patient was evaluated in room B11. A complete history and physical exam was performed Cardiac monitoring: An order was placed for continuous cardiac monitoring. The monitor shows a rate of 60 with sinus rhythm 1230: Vital signs stable. Labs show an elevated creatinine of 1.9. CT does show to large kidney stones causing hydroureteronephrosis. Given the patient's 2 large stones and hydroureteronephrosis as well as the elevated creatinine the [facility] Melissa service will be notified. Administered Medications Gabapentin (Gabapentin 300 Mg Cap) 300 mg PO QID WILMER Stop: 04/28/21 16:59 Last Admin: 03/29/21 18:21 Dose: 300 mg Documented by: [id number] Potassium Chloride 20 meq/ (Sodium Chloride) 1,010 mls @ 125 mls/hr IV .Q8H5M WILMER Stop: 03/30/21 08:10 Last Admin: 03/29/21 17:21 Dose: 125 mls/hr Documented by: [id number] Insulin Aspart (Insulin Aspart 100 Units/Ml 3 Ml Pen) 0 units SC ACHS WILMER Stop: 04/28/21 16:29 Last Admin: 03/29/21 18:21 Dose: 3 units Documented by: [id number] Cosigned by: [id number] Discontinued Medications Sodium Chloride (Nss 1000ml) 500 mls @ 999 mls/hr IV .Q31M ONE Stop: 03/29/21 11:21 Last Infusion: 03/29/21 11:43 Dose: 0 mls/hr Documented by: [id number] Admin: 03/29/21 10:56 Dose: 999 mls/hr Documented by: [id number] Ceftriaxone Sodium (Rocephin) 2,000 mg in 70 mls @ 140 mls/hr IV NOW STA Stop: 03/29/21 14:49 Last Infusion: 03/29/21 15:14 Dose: 0 mls/hr Documented by: [id number] Admin: 03/29/21 14:41 Dose: 140 mls/hr Documented by: [id number] Ketorolac Tromethamine (Ketorolac Tromethamine 15 Mg/Ml Vial) 15 mg IV NOW STA Stop: 03/29/21 10:52 Last Admin: 03/29/21 10:55 Dose: 15 mg Documented by: [id number] Medical Decision Making Laboratory Data Result diagrams: 03/29/21 10:30 03/29/21 10:30 Lab Results 03/29/21 03/29/21 03/29/21 Range/Units 10:30 10:30 10:30 WBC 12.02 H (4.8-10.8) K/uL RBC 3.92 L (4.7-6.1) M/uL Hgb 12.2 L (14.0-18.0) g/dL Hct 34.4 L (42-52) % MCV 87.8 (80-100) fL MCH 31.1 (25-34) pg MCHC 35.5 (32-36) g/dL RDW Std Deviation 46.5 H (36.4-46.3) fL RDW Coeff of Aranza 14.5 (11.5-14.5) % Plt Count 194 (130-400) K/uL MPV 9.8 (7.4-10.4) fL Sodium 138 (136-145) mmol/L Potassium 3.8 (3.5-5.1) mmol/L Chloride 105 (98-107) mmol/L Carbon Dioxide 22 (21-32) mmol/L Anion Gap 11.0 (3-11) BUN 27 H (7-18) mg/dl Creatinine 1.90 H (0.6-1.4) mg/dl Est Cr Clr Drug Dosing 36.2 ml/min Est GFR ( Amer) 39.9 ml/min Est GFR (Non-Af Amer) 34.5 ml/min BUN/Creatinine Ratio 14.4 (10-20) Glucose 97 (70-99) mg/dl Calcium 8.6 (8.5-10.1) mg/dl Urine Color [place] Urine Appearance Cloudy A (Clear) Urine pH 5.0 (4.5-7.5) Ur Specific [place] 1.014 (1.000-1.030) Urine Protein 1+ H (Negative) Urine Glucose (UA) Negative (Negative) Urine Ketones 2+ H (Negative) Urine Blood 3+ H (Negative) Urine Nitrite Negative (Negative) Urine Bilirubin Negative (Negative) Urine Urobilinogen Negative (Negative) Ur Leukocyte Esterase Trace H (Negative) Urine WBC (Auto) 5-10 H (0-5) /hpf Urine RBC (Auto) >30 H (0-4) /hpf U Hyaline Cast (Auto) 1-5 (0-5) /lpf U Epithel Cells (Auto) 10-20 H (0-5) /lpf Urine Bacteria (Auto) 1+ H (Negative) Uric Acid Crystals Present A (None Prsent) Urine Yeast Not Reportable Imaging Data Radiologist's Impression: Abdomen/Pelvis CT 03/29/21 10:[address] WITHOUT CONTRAST CT DOSE: 511.56 mGy.cm HISTORY: L flank pain LLQ pain hematuria TECHNIQUE: Multiaxial CT images of the abdomen and pelvis were performed without contrast. A dose lowering technique was utilized adhering to the principles of ALARA. COMPARISON STUDY: Abdomen and pelvis CT 02/12/2021. FINDINGS: There again noted multiple bilateral renal calculi measuring up to 6 mm. There is mild left hydronephrosis and left perinephric edema secondary to 2 adjacent obstructing stones within the mid left ureter measuring 4 mm each. These are new from the prior study. No right-sided hydronephrosis or right ureteral stones. The bladder is unremarkable. The prostate gland remains mildly enlarged. Mild dependent changes seen within the lungs posteriorly. The unenhanced liver, gallbladder, pancreas, spleen, and adrenal glands are unremarkable. No retroperitoneal lymphadenopathy. There is a left circumaortic renal vein. No pelvic lymphadenopathy. Trace pelvic free fluid. Suboptimal evaluation for bowel pathology due to the lack of intravenous and oral contrast. However, there is no definite bowel wall thickening or obstruction. Colonic diverticulosis. No evidence for acute diverticulitis. No fractures within the visualized osseous structures. IMPRESSION: 1. There are 2 adjacent 4 mm stones within the mid left ureter resulting in mild left hydronephrosis. These are new from the prior study. 2. Bilateral nephrolithiasis. 3. Colonic diverticulosis. No evidence for acute diverticulitis. 4. No definite bowel wall thickening or obstruction. ACT 112: Negative or not required by law. Electronically signed by: Deshawn Montesinos M.D. 03/29/2021 11:29 AM MDM Narrative 1036: The patient was evaluated in room B11. A complete history and physical exam was performed Cardiac monitoring: An order was placed for continuous cardiac monitoring. The monitor shows a rate of 60 with sinus rhythm 1230: Vital signs stable. Labs show an elevated creatinine of 1.9. CT does show to large kidney stones causing hydroureteronephrosis. Given the patient's 2 large stones and hydroureteronephrosis as well as the elevated creatinine the [facility] Melissa service will be notified. Impression & Plan Hydronephrosis with urinary obstruction due to ureteral calculus Discharge Plan Visit Data Chief Complaint: Flank Pain Stated Complaint: KIDNEY STONES AND BLADDER INFECTION Discharge Problem: Hydronephrosis with urinary obstruction due to ureteral calculus Patient Disposition: Admitted As Inpatient Discharge Instructions Interventions: ED Discharge Assessment Last Done: 03/29/21 16:03
[2021-03-29] MEDS: ATORVASTATIN 40 MG TAB PO SCH (20:44)
[2021-03-29] MEDS: FINASTERIDE 5 MG TAB PO SCH (20:45)
[2021-03-29] MEDS: APIXABAN 5 MG TABLET PO SCH (20:45)
[2021-03-30] MEDS: POTASSIUM CHLORIDE 20 MEQ in SODIUM CHLORIDE 0.9% 1000ML 1,000 ML IV SCH (01:30)
[2021-03-30 06:54] LABS: Hematocrit (blood only) 26.6 % (42-52); Hemoglobin 9.3 g/dL (14.0-18.0); Mean Corpuscular Hemoglobin 30.5 pg (25-34); Mean Corpuscular Volume 87.2 fL (80-100); Mean Platelet Volume 9.5 fL (7.4-10.4); Platelet Count 146 K/uL (130-400); RDW Coefficient of Variation 14.6 % (11.5-14.5); RDW Standard Deviation 46.6 fL (36.4-46.3); Red Blood Count 3.05 M/uL (4.7-6.1); White Blood Count 7.85 K/uL (4.8-10.8)
[2021-03-30 07:14] LABS: BUN Creatinine Ratio 12.1 (10-20); Calcium 7.6 mg/dl (8.5-10.1); Creatinine Clr Calc Pharmacy 27.3 ml/min; Est GFR (African American) 28.4 ml/min; Est GFR (Non-African American) 24.5 ml/min; Potassium 4.4 mmol/L (3.5-5.1)
[2021-03-30] MEDS: INSULIN ASPART 100 UNITS/ML 3 ML PEN SC SCH ×4 (07:23→20:35)
[2021-03-30] MEDS ORDERED: Nursing to Pharmacy Communication SCH ×2 (07:30→15:30)
[2021-03-30] MEDS: amLODIPine BESYLATE 5 MG TAB PO SCH (07:37)
[2021-03-30] MEDS: GABAPENTIN 300 MG CAP PO SCH ×4 (07:37→20:33)
[2021-03-30 07:48] LABS: Estimated Average Glucose 120 mg/dl; Hemoglobin A1C 5.8 % (4.5-5.6)
--- NOTE | 2021-03-30 08:45 | Urology Progress Note ---
Date of Service March 30, 2021 Assessment & Plan (1) Calculus of left ureter: (2) Hematuria: (3) Acute kidney injury: Plan: 70 year-old male patient, with multiple comorbidities, admitted with left flank pain/hematuria secondary to 2 adjacent 4 mm obstructing calculi within the mid left ureter. -Patient remains afebrile. -Labs reviewed - white count 7.85, creatinine increased to 2.52 (previously 1.90). -Urine culture pending, continue empiric IV Ceftriaxone. -Discussed options with patient for acute stone management including inpatient ureteral stent versus outpatient management, he prefers inpatient management at this time. -Keep NPO. -Strain all urine. Findings reviewed with Dr. Quevedo. Given his left abdominal/flank pain and MAGY in the context of 2 obstructing 4 mm mid left ureteral calculi, will proceed with OR for cystoscopy, left retrograde pyelogram and left ureteral stent placement, possible ureteroscopy, laser lithotripsy/stone treatment depending on findings. Risks and benefits of procedure discussed and to be reviewed with patient by Dr. Quevedo. OR notified. Preoperative CXR and EKG in chart. COVID-19 negative. Patient covered preoperatively with routine IV Ceftriaxone. Admission and Anticipated Discharge Date Admission Date: March 29, 2021 Supervising Physician Co-Signing Physician Notes I saw this patient with the physician administrative office assistant, I participated in the history, physical, review of systems, and physical exam. I reviewed the medications with the patient and the physician administrative office assistant and helped reconcile the medications. I helped take a detailed family and social history as well. I formulated the assessment and plan personally with the physician administrative office assistant and went over it with the patient. Physical Exam Gen-AAO x 3, NAD, Afebrile Head-NCAT, EOMI, PERRLA, Anicteric Sclera, No Posterior Pharyngeal Erythema Neck-Supple, No JVD, No Thyromegaly, No Masses, No LAD, No Bruits Lungs-Clear to Auscultation Bilaterally, No Rales, No Rhonchi, No Wheezing, No Crepitus Chest-No S4, +S1, +S2, No S3, No Murmurs, No Rubs, No Gallops, No Ectopy Abdomen-Soft, Bowel Sounds Present, Non Tender, Non Distended, No Hepatomegaly, No Splenomegaly, No Palpable Masses, No Rebound, No Rigidity, No Guarding Musculoskeletal-Full Range of Motion Bilaterally, mild L CVAT Extremities-No Cyanosis, No Clubbing, No Edema Nuero-Cranial Nerves II-XII grossly intact, Motor WNL, DTRs WNL, Strength WNL, Non Focal Psych-Normal Mood Subjective Patient seen and evaluated at bedside. He is awake, alert, non-toxic in appearance. Did require PRN IV pain medication this AM for lower abdominal pain. Currently reports abdominal/flank discomfort as tolerable. Denies dysuria or hematuria. Does have baseline urinary urgency/frequency. Denies fevers or chills. Denies nausea or vomiting. No known stone passage since admission. Has been NPO since midnight. Chart review: Afebrile Wbc 7.85 Hgb 9.3 Creatinine 2.52 (previously 1.90) Urine culture pending. Patient on routine IV Ceftriaxone. Denies additional urologic concerns today. Review of Systems Constitutional: as per Subjective / HPI; no fever and no chills Respiratory: no cough and no dyspnea Cardiovascular: no chest pain and no edema Gastrointestinal: as per Subjective / HPI; no nausea and no vomiting Genitourinary: + as per Subjective / HPI Physical Exam Constitutional: well developed and well nourished; no acute distress and not ill appearing Respiratory: normal respiratory effort and able to speak in complete sentences; no respiratory distress and no audible wheezes Gastrointestinal (Abdomen): Inspection/Auscultation: abdomen normal to inspection; abdomen not distended Percussion/Palpation: + abdomen tender (Mild tenderness left/mid abdomen) and abdomen soft; no guarding Psychiatric: Orientation: alert, oriented x 3 and cooperative Affect: euthymic affect Genitourinary: no CVA tenderness Results & Data ([facility]) Vital Signs (Past 12 Hours) Vital Signs Temp Pulse Resp BP Pulse Ox 03/30/21 08:04 36.9 C 65 20 125/74 90 03/29/21 23:31 36.8 C 68 18 130/43 L 96 PG Care Time/CCT Total # of Minutes Spent Total Time Spent with Patient: Total time spent is greater than 50% in coordination of care (as documented) at patient's floor/unit and/or counseling patient: Coding Level of Care Code 72635 Subseq Hosp Care Lvl 2 Diagnoses Calculus of left ureter N20.1 Hematuria R31.9 Acute kidney injury N17.9
[2021-03-30] MEDS: SODIUM CHLORIDE 0.9% 1000ML 1,000 ML IV SCH (09:56)
[2021-03-30] MEDS: APIXABAN 5 MG TABLET PO SCH ×2 (11:17→20:33)
[2021-03-30] MEDS: cefTRIAXone SODIUM 2,000 MG in DEXTROSE 5% 50 ML IV SCH (11:17)
--- NOTE | 2021-03-30 13:01 | History & Physical Bridge Note ---
Date of Service March 30, 2021 History & Physical Bridge Note I have examined the patient, reviewed the History & Physical and in the interval since the performance of the History & Physical I have noted the following changes of clinical significance: no changes noted Supervising Physician Co-Signing Physician Notes I saw this patient with the physician assistant press operator offset, I participated in the history, physical, review of systems, and physical exam. I reviewed the medications with the patient and the physician assistant press operator offset and helped reconcile the medications. I helped take a detailed family and social history as well. I formulated the assessment and plan personally with the physician assistant press operator offset and went over it with the patient. Physical Exam Gen-AAO x 3, NAD, Afebrile Head-NCAT, EOMI, PERRLA, Anicteric Sclera, No Posterior Pharyngeal Erythema Neck-Supple, No JVD, No Thyromegaly, No Masses, No LAD, No Bruits Lungs-Clear to Auscultation Bilaterally, No Rales, No Rhonchi, No Wheezing, No Crepitus Chest-No S4, +S1, +S2, No S3, No Murmurs, No Rubs, No Gallops, No Ectopy Abdomen-Soft, Bowel Sounds Present, Non Tender, Non Distended, No Hepatomegaly, No Splenomegaly, No Palpable Masses, No Rebound, No Rigidity, No Guarding Musculoskeletal-Full Range of Motion Bilaterally, mild L CVAT Extremities-No Cyanosis, No Clubbing, No Edema Nuero-Cranial Nerves II-XII grossly intact, Motor WNL, DTRs WNL, Strength WNL, Non Focal Psych-Normal Mood
[2021-03-30] MEDS ORDERED: LIDOCAINE 2% 2 ML VIAL/AMP(20MG/ML) INFIL ONE (13:09)
[2021-03-30] MEDS ORDERED: fentaNYL citrate 100 MCG/2 ML VIAL ONE (13:09)
[2021-03-30] MEDS ORDERED: ONDANSETRON INJ 2 MG/ML 2 ML VIAL ONE (13:09)
[2021-03-30] MEDS ORDERED: PROPOFOL IV EMULSION 10 MG/ML 20 ML VIAL IV ONE (13:09)
[2021-03-30] MEDS ORDERED: MIDAZOLAM HCL 1 MG/ML 2ML VIAL ONE (13:09)
[2021-03-30] MEDS ORDERED: DEXAMETHASONE SOD INJ 4 MG/ML VIAL ONE (13:09)
--- NOTE | 2021-03-30 13:14 | Anesthesiology Consultation ---
Date of Service March 30, 2021 Assessment & Plan (1) Encounter for pre-operative examination: Chart Review Chart Review: Acceptable Risk for Surgery and Patient NOT seen in Pre Admission Testing Consults Requested none Proposed Anesthesia Anesthesia Type: General Risk / Benefits Reviewed With: PT / POA / Parent / Guardian, Accepts Plan and Informed Consent Obtained History Surgery Operation Date: 03/30/21 07:00 Proposed Procedures p Cystoscopy, Left Retrograde Pyelogram, Stent Placement, Possible Stone Treatment - Keo Quevedo MD Height/Weight Height: 5 ft 7 in Weight: 82.7 kg Allergies Allergy/AdvReac Type Severity Reaction Status Date / Time No Known Allergies Allergy Unverified 03/29/21 12:53 Medications Home Medications Medication Instructions Recorded Confirmed Last Taken finasteride 5 mg tablet (Proscar) 5 mg PO HS 01/27/21 03/29/21 03/28/21 amlodipine 5 mg tablet (Norvasc) 2.5 mg PO QAM #30 tab 02/02/21 03/29/21 03/29/21 apixaban 5 mg tablet (Eliquis) 5 mg PO BID 30 Days #60 tab 02/02/21 03/29/21 03/29/21 metformin 1,000 mg tablet 1,000 mg PO BIDM 02/12/21 03/29/21 03/29/21 aspirin 81 mg tablet,delayed 81 mg PO QAM 03/29/21 03/29/21 03/29/21 release (Aspirin Low Dose) atorvastatin 40 mg tablet (Lipitor) 40 mg PO HS 03/29/21 03/29/21 03/28/21 gabapentin 300 mg capsule 300 mg PO QID 03/29/21 03/29/21 03/29/21 (Neurontin) Active Medications Generic Name Dose Route Start Last Admin Trade Name Freq PRN Reason Stop Dose Admin Acetaminophen 1,000 mg 03/29/21 13:41 03/30/21 07:36 Acetaminophen 500 Mg Tab PO 04/28/21 13:40 1,000 mg Q8H PRN Administration Pain or Fever Amlodipine Besylate 2.5 mg 03/30/21 09:00 03/30/21 07:37 Amlodipine Besylate 5 Mg Tab PO 04/29/21 08:59 2.5 mg QAM WILMER Administration Apixaban 5 mg 03/29/21 21:00 03/30/21 11:17 Apixaban 5 Mg Tablet PO 04/28/21 20:59 5 mg BID WILMER Administration Atorvastatin Calcium 40 mg 03/29/21 21:00 03/29/21 20:44 Atorvastatin 40 Mg Tab PO 04/28/21 20:59 40 mg HS WILMER Administration Finasteride 5 mg 03/29/21 21:00 03/29/21 20:45 Finasteride 5 Mg Tab PO 04/28/21 20:59 5 mg HS WILMER Administration Gabapentin 300 mg 03/29/21 17:00 03/30/21 07:37 Gabapentin 300 Mg Cap PO 04/28/21 16:59 300 mg QID WILMER Administration Sodium Chloride 1,000 mls @ 100 mls/hr 03/30/21 08:45 03/30/21 09:56 Nss 1000ml IV 04/29/21 08:44 100 mls/hr .Q10H WILMER Administration Ceftriaxone Sodium 2,000 mg/ 70 mls @ 140 mls/hr 03/30/21 11:00 03/30/21 11:49 Dextrose IV 04/07/21 11:29 Infused Q24H WILMER Infusion Protocol Insulin Aspart 0 units 03/30/21 07:30 03/30/21 12:28 Insulin Aspart 100 Units/Ml 3 Ml Pen SC 04/29/21 07:29 Not Given Q6 WILMER Morphine Sulfate 2 mg 03/29/21 16:01 03/29/21 20:56 Morphine Sulfate 2 Mg/Ml Carp IV 04/12/21 16:00 2 mg Q4H PRN Administration Pain NPO Date Last Intake of Fluids: 03/29/21 Time Last Intake of Fluids: 18:00 Last Intake of Fluids Comment: sip with meds 0730 this am Date Last Intake of Solids: 03/29/21 Time Last Intake of Solids: 18:00 Past Medical History Medical History (Updated 03/30/21 @ 13:14 by Michael Womack MD) BPH (benign prostatic hypertrophy) Diabetes mellitus, type 2 Dyslipidemia History of DVT (deep vein thrombosis) Exercise / Class Metabolic Activity II 4-5 Yardwork/Stairs/Walk up hill Past Family History Family History Other Diabetes Heart disease Past Surgical History Surgical History H/O colonoscopy " 04/02/2014- TVA polyp, diverticulosis " History of tympanoplasty of right ear Status post appendectomy Past Anesthesia History No Hx of Anesthesia Complications and No Family Hx of Anesthesia Complications History of PONV No Hx of PONV and No Hx of Motion Sickness Social History Smoking Status: Former smoker tobacco type: cigarettes Do You Dip or Chew Tobacco: No Hx Alcohol Use: No Hx Substance Use: No Physical Exam Vital Signs Last Vital Signs Temp 36.6 C 03/30/21 12:46 Pulse 58 L 03/30/21 12:46 Resp 18 03/30/21 12:46 BP 130/76 03/30/21 12:46 Pulse Ox 95 03/30/21 12:46 ENMT Mouth: no dentition abnormality Thyromental Distance: > or= 3.5 Finger Breadths Mallampati Class: II Neck normal visual inspection Respiratory normal respiratory effort Auscultation: lungs clear to auscultation bilaterally Cardiovascular Rate/Rhythm: regular rate and regular rhythm Psychiatric Orientation: alert Testing Laboratory Results 03/30/21 06:09 03/30/21 06:09 Hemoglobin A1c 5.8 % (4.5-5.6) H 03/30/21 06:09 Urine Color [place] 03/29/21 10:30 Urine Appearance Cloudy (Clear) A 03/29/21 10:30 Urine pH 5.0 (4.5-7.5) 03/29/21 10:30 Ur Specific [place] 1.014 (1.000-1.030) 03/29/21 10:30 Urine Protein 1+ (Negative) H 03/29/21 10:30 Urine Glucose (UA) Negative (Negative) 03/29/21 10:30 Urine Ketones 2+ (Negative) H 03/29/21 10:30 Urine Nitrite Negative (Negative) 03/29/21 10:30 Ur Leukocyte Esterase Trace (Negative) H 03/29/21 10:30 Urine WBC (Auto) 5-10 /hpf (0-5) H 03/29/21 10:30 Urine RBC (Auto) >30 /hpf (0-4) H 03/29/21 10:30 U Hyaline Cast (Auto) 1-5 /lpf (0-5) 03/29/21 10:30 U Epithel Cells (Auto) 10-20 /lpf (0-5) H 03/29/21 10:30 Urine Bacteria (Auto) 1+ (Negative) H 03/29/21 10:30 03/29/21 10:30 Urine Culture - Preliminary Urine,Clean Catch No growth - Less than 1,000 colonies/mL, Final report to follow. 03/30/21 03/30/21 12:12 07:09 POC Glucose 123 H 100 H
[2021-03-30] MEDS ORDERED: fentaNYL citrate 100 MCG/2 ML VIAL IV PRN (13:15)
[2021-03-30] MEDS ORDERED: ONDANSETRON INJ 2 MG/ML 2 ML VIAL IV PRN (13:15)
[2021-03-30] MEDS ORDERED: ATROPINE SULFATE 0.1 MG/ML 10ML SYR IV PRN (13:15)
[2021-03-30] MEDS ORDERED: PROMETHAZINE HCL 6.25 MG in SODIUM CHLORIDE 0.9% 50 ML IV PRN (13:15)
[2021-03-30] MEDS ORDERED: ePHEDrine sulfate 50 MG/ML AMP IV PRN (13:15)
[2021-03-30] MEDS ORDERED: DIATRIZOATE MEGLUMINE 30% 100ML VIAL INSTIL ONE (13:49)
--- NOTE | 2021-03-30 13:58 | Post Operative Brief Note ---
PG Immediate Post Op with CF Date of Surgery March 30, 2021 Pre & Post Diagnosis Operation Date: 03/30/21 07:00 Pre-Op Diagnosis: Hematuria, Calculus of left ureter, Acute Kidney Injury Post-Op Diagnosis: Hematuria, Calculus of left ureter, Acute Kidney Injury I identified the patient and participated in the time-out.: Yes Procedure Operation Date: 03/30/21 07:00 Actual Procedures p Cystoscopy, Left Retrograde Pyelogram, Left Ureteral Stent Placement(Left) - Keo Quevedo MD Surgeon Keo Quevedo MD Manager Project None Estimated Blood Loss 0 Findings See Below Normal urethral and bladder. No lesions or stones in bladder. Retrograde showed mild left hydro. Stent in good position, redundant coil in left pelvis. Mild debris from left UO Specimens Specimen Description: no specimens per surgeon Drains Other (6x26 L stent ) Disposition Accompanied Patient To Recovery: No Overlapping Procedure I was present for: the critical portions of procedure.
--- NOTE | 2021-03-30 14:16 | Operative Report ---
PG Post Operative Report Pre & Post Diagnosis Operation Date: 03/30/21 07:00 Pre-Op Diagnosis: Hematuria, Calculus of left ureter, Acute Kidney Injury Post-Op Diagnosis: Hematuria, Calculus of left ureter, Acute Kidney Injury I identified the patient and participated in the time-out.: Yes Procedure Operation Date: 03/30/21 07:00 Actual Procedures p Cystoscopy, Left Retrograde Pyelogram, Left Ureteral Stent Placement(Left) - Keo Quevedo MD Surgeon Keo Quevedo MD Rubber Liner None Estimated Blood Loss 0 Findings See Below 1. Normal urethra and bladder. No lesions. 2. Mild debris from left UO after cannulation. 3. Redundancy and proximal coil of stent but will likely straighten out over time. Good proximal coil noted on fluoroscopy and good distal coil noted under direct visualization 4. Mild fossa navicularis stricture, accomodated scope easily. Specimens None Drains 6 Qatari by 26 cm left ureteral stent Complications None Disposition Accompanied Patient To Recovery: No Indications 70-year-old male who presented with left flank pain and was found to have 2 mid to distal left ureteral calculi. He was noted to have an MAGY. Baseline cre atinine was 1.2, climbed up to 2.5 and then dropped to 1.9. WBCs was 12. UA showed trace leukocyte esterase, 5-10 WBCs, greater than 30 RBCs and 1+ bacteria. Risks and benefits were discussed with the patient and opted for left ureteral stent placement due to small chance of infection in urine and associated comorbidities including history of stroke on Eliquis. Description of Procedure After informed consent was obtained, the patient was transported to the operative suite. General anesthesia was induced. The patient was placed in dorsal lithotomy position. He was prepped and draped in sterile fashion. He received preoperative antibiotics in the form of previously given ceftriaxone. An appropriate surgical timeout was performed. 21 Qatari rigid cystoscope was inserted per urethra into the bladder. The fossa navicularis was noted to be mildly narrowed but accommodated the scope without issue. Cystoscopy revealed no lesions or stones. He did have trilobar hyperplasia of the prostate. We turned our attention the left ureteral orifice and intubated this with a 5 Qatari open-ended catheter. We attempted to shoot a left retrograde pyelogram however contrast did not not make it into the collecting system. We advanced a sensor wire in the upper pole of the kidney and then advanced the 5 Qatari open- ended cath into the proximal ureter. A left retrograde pyelogram was shot which showed moderate left hydronephrosis. Sensor wire was then advanced to the upper pole of the kidney and the 5 Qatari open-ended catheter was removed. 6 Q[place] by 26 cm left ureteral stent was deployed. There is noted to be a good coil in the left renal pelvis however there was some redundancy in the stent. This will likely migrate downwards over time. A good distal coil was noted in the bladder. The bladder was emptied and the scope was removed. This concluded the end of the case. All counts were correct at the end the case. I was present scrubbed and actively participated for the entire the procedure. I attest to the content of the Intraoperative Record and any orders documented therein. Any exceptions are noted below.
--- NOTE | 2021-03-30 14:35 | Fluoroscopy Report ---
FL retrograde includes kub CLINICAL HISTORY: Left ureteral stent placement COMPARISON STUDY: None. FLUOROSCOPY TIME: 32 seconds. FINDINGS: 8 fluoroscopic spot images of the abdomen and pelvis demonstrate retrograde opacification o f the left ureter followed by placement of a left ureteral stent. Only the proximal portion of the st ent is identified and appears in good position. IMPRESSION: Fluoroscopy provided for left ureteral stent placement. ACT 112: Negative or not required by law. Electronically signed by: Deshawn Montesinos M.D. 03/30/2021 2:34 PM
--- NOTE | 2021-03-30 14:40 | Anesthesiology Progress Note ---
Date of Service March 30, 2021 Anesthesia Post Procedure Vital Signs Vital Signs: Temp Pulse Pulse Pulse Resp BP Pulse Ox 03/30/21 14:25 58 L 17 98/58 L 99 03/30/21 14:15 58 L 12 100/64 99 03/30/21 14:05 36.3 C L 64 14 103/65 98 03/30/21 12:46 36.6 C 58 L 18 130/76 95 03/30/21 08:04 36.9 C 65 20 125/74 90 03/29/21 23:31 36.8 C 68 18 130/43 L 96 03/29/21 16:35 36.3 C L 63 16 98 03/29/21 16:03 68 16 98 Pain Intensity Left Abdomen: Pain Intensity: 0 Transfer of Care Handoff Completed per policy Notes Mental Status: alert / awake / arousable and participated in evaluation Patient Amnestic to Procedure: Yes Nausea / Vomiting: adequately controlled Pain: adequately controlled Airway Patency, RR, SpO2: stable & adequate BP & HR: stable & adequate Hydration State: stable & adequate Anesthetic Complications: no major complications apparent and Pt Satisfied with anesthetic care
[2021-03-30] MEDS ORDERED: cefTRIAXone SODIUM 2,000 MG in DEXTROSE 5% 50 ML IV SCH (15:00)
[2021-03-30 16:03] LABS: Hematocrit (blood only) 25.6 % (42-52); Hemoglobin 8.9 g/dL (14.0-18.0)
--- NOTE | 2021-03-30 17:01 | Hospitalist Progress Note ---
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 Suprapubic and flank pain, hematuria x [address] abd/pelvis with 2 adjacent 4 mm stones within the mid left ureter resulting in mild left hydronephrosis UA abnormal, possible infection 03/30/21 s/p Cystoscopy, Left Retrograde Pyelogram, Left Ureteral Stent Placement by Dr. Quevedo crea increased from 1.9 to 2.5 continue IV fluids monitor renal function Hg 12 to 9.3 to 8.9 repeat tonight at 10pm (3) Acute kidney injury: Plan: management per above (4) History of DVT (deep vein thrombosis): Plan: Continue Eliquis (5) History of stroke: Plan: Found to have R frontal CVA in January 2021 Continue Eliquis, aspirin, statin (6) Diabetes mellitus, type 2: Plan: A1c 6.8 in September, repeat ordered for AM Hold home agents SSI while in-patient BSG AC HS DVT Ppx: Eliquis Code status: FULL PCP: Celina Dispo: pending anticipate d/c home when medically stable plan of care discussed with patient in detail and at length all questions answered he is understanding, agreeable, comfortable with the plan of care Admission and Anticipated Discharge Date Admission Date: March 29, 2021 Subjective ff up for ureteral stone, obstructive uropathy seen resting in bed, comfortable s/p cystoscopy with stent placement states he feels ok overall just groggy denies abdominal or back pain (+) hematuria, no dysuria no fever/chills no chest pain, dyspnea, palpitations, dizziness no other symptoms Review of Systems Review of Systems: all noted and negative except for above Physical Exam Physical Exam: General- oriented x 3, not in distress, speaks in sentences with no effort or accessory muscle use Eyes- anicteric Neck- no JVD Lungs- clear breath sounds bilaterally, no rales/wheezes Heart- normal rate, regular rhythm; no murmurs Abdomen- normal bowel sounds, nondistended, soft, nontender no CVA tenderness Extremities- no pretibial edema, no calf tenderness Neuro- alert, oriented x 3; no gross focal neurologic deficits Skin- warm & dry Results & Data Results & Data ([facility]) Vital Signs (Past 12 Hours) Vital Signs Temp Pulse Pulse Resp BP Pulse Ox 03/30/21 16:00 36.6 C 50 L 22 129/71 91 03/30/21 15:30 36.3 C L 55 L 20 110/66 94 03/30/21 15:00 36.4 C L 62 16 115/73 95 03/30/21 14:45 37.1 C 60 12 107/63 94 03/30/21 14:35 37.1 C 58 L 8 L 105/63 94 03/30/21 14:25 58 L 17 98/58 L 99 03/30/21 14:15 58 L 12 100/64 99 03/30/21 14:05 36.3 C L 64 14 103/65 98 03/30/21 12:46 36.6 C 58 L 18 130/76 95 03/30/21 08:04 36.9 C 65 20 125/74 90 all noted and reviewed including below
[2021-03-30] MEDS: FINASTERIDE 5 MG TAB PO SCH (20:33)
[2021-03-30] MEDS: ATORVASTATIN 40 MG TAB PO SCH (20:33)
[2021-03-31] MEDS: SODIUM CHLORIDE 0.9% 1000ML 1,000 ML IV SCH ×2 (03:41→15:31)
[2021-03-31 06:34] LABS: Hematocrit (blood only) 25.9 % (42-52); Hemoglobin 8.9 g/dL (14.0-18.0); Mean Corpuscular Hemoglobin 30.4 pg (25-34); Mean Corpuscular Hgb Conc 34.4 g/dL (32-36); Mean Corpuscular Volume 88.4 fL (80-100); Mean Platelet Volume 9.8 fL (7.4-10.4); Platelet Count 155 K/uL (130-400); RDW Coefficient of Variation 14.6 % (11.5-14.5); RDW Standard Deviation 47.5 fL (36.4-46.3); Red Blood Count 2.93 M/uL (4.7-6.1); White Blood Count 5.94 K/uL (4.8-10.8)
[2021-03-31 07:10] LABS: Calcium 7.3 mg/dl (8.5-10.1); Est GFR (African American) 37.1 ml/min; Potassium 4.3 mmol/L (3.5-5.1)
--- NOTE | 2021-03-31 07:53 | Urology Progress Note ---
Date of Service March 31, 2021 Assessment & Plan (1) Calculus of left ureter: (2) Hematuria: (3) Acute kidney injury: Plan: 70 year-old male patient, with multiple comorbidities, admitted with left flank pain/hematuria secondary to 2 adjacent 4 mm obstructing calculi within the mid left ureter. -POD #1 cystoscopy, left retrograde pyelogram, and left ureteral stent placement with Dr. Quevedo. -Patient clinically progressing as expected. -Patient remains afebrile. -Labs reviewed - white count stable, creatinine improved this AM to 2.02 (previously 2.52). -Preliminary urine culture no growth, currently on empiric IV Ceftriaxone. -No additional intervention indicated at this time. -Okay to discharge home from perspective. Recommend home with pain control, PRN Pyridium, Flomax. -Will arrange outpatient follow-up with urology service to discuss definitive stone management. -Expected clinical course reviewed with patient, all questions answered. Thank you for allowing us to participate in the acute care of Mr. Solis. Please reconsult us with additional questions, concerns or changes in patient status. Admission and Anticipated Discharge Date Admission Date: March 29, 2021 Supervising Physician Co-Signing Physician Notes Discussed patient with BARRIE. Agree with findings and plan above. Creatinine improving following left ureteral stent placement yesterday. Stable for discharge home from urologic perspective. Will schedule f/u with urology for definitive stone treatment. Subjective POD #1 cystoscopy, left retrograde pyelogram, and left ureteral stent placement with Dr. Quevedo. Patient seen at bedside, reports he is feeling okay overall. Does report mild discomfort to lower abdomen. Denies flank pain. Notes dysuria and hematuria. Denies significant frequency/urgency. Feels he empties his bladder well. Denies nausea or vomiting. Denies fevers or chills. Has been ambulating without dizziness/lightheadedness. Chart review: Afebrile Wbc 5.94 Hgb 8.9 Creatinine 2.02 (previously 2.52) Preliminary urine culture no growth. Patient currently on IV Ceftriaxone. Denies additional urologic concerns today. Review of Systems Constitutional: as per Subjective / HPI; no fever and no chills Gastrointestinal: as per Subjective / HPI; no nausea and no vomiting Genitourinary: + as per Subjective / HPI Physical Exam Constitutional: well developed and well nourished; no acute distress and not ill appearing Respiratory: normal respiratory effort and able to speak in complete sentences; no respiratory distress and no audible wheezes Gastrointestinal (Abdomen): Inspection/Auscultation: abdomen normal to inspection; abdomen not distended Percussion/Palpation: abdomen soft; abdomen nontender and no guarding Psychiatric: Orientation: alert, oriented x 3 and cooperative Affect: euthymic affect Genitourinary: no CVA tenderness Results & Data ([facility]) Vital Signs (Past 12 Hours) Vital Signs Temp Pulse Resp BP Pulse Ox 03/31/21 07:46 36.3 C L 47 L 20 134/78 96 03/31/21 03:19 36.4 C L 54 L 17 116/67 96 03/30/21 23:00 36.5 C 71 18 130/70 98 PG Care Time/CCT Total # of Minutes Spent Total Time Spent with Patient: Total time spent is greater than 50% in coordination of care (as documented) at patient's floor/unit and/or counseling patient: Coding Level of Care Code 31793 Subseq Hosp Care Lvl 2 Diagnoses Calculus of left ureter N20.1 Hematuria R31.9 Acute kidney injury N17.9
[2021-03-31] MEDS ORDERED: ASPIRIN 81 MG ECTAB PO SCH (09:00)
[2021-03-31] MEDS: INSULIN ASPART 100 UNITS/ML 3 ML PEN SC SCH ×2 (09:02→12:46)
[2021-03-31] MEDS: APIXABAN 5 MG TABLET PO SCH (09:03)
[2021-03-31] MEDS: amLODIPine BESYLATE 5 MG TAB PO SCH (09:04)
[2021-03-31] MEDS: GABAPENTIN 300 MG CAP PO SCH ×2 (09:04→12:47)
[2021-03-31] MEDS: cefTRIAXone SODIUM 2,000 MG in DEXTROSE 5% 50 ML IV SCH (11:36)
--- NOTE | 2021-03-31 13:32 | Hospitalist Progress Note ---
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 Suprapubic and flank pain, hematuria x [address] abd/pelvis with 2 adjacent 4 mm stones within the mid left ureter resulting in mild left hydronephrosis UA abnormal, possible infection 03/30/21 s/p Cystoscopy, Left Retrograde Pyelogram, Left Ureteral Stent Placement by Dr. Quevedo crea increased from 1.9 to 2.5, given IV NSS improved to 2.0 encouraged to drink plenty of fluids, no NSAIDs repeat BMP on ff up with PCP early next week Hg 12 to 9.3 to 8.9, remained stable at 8.9 repeat CBC on ff up with PCP early next week (3) Acute kidney injury: Plan: management per above (4) History of DVT (deep vein thrombosis): Plan: Continue Eliquis (5) History of stroke: Plan: Found to have R frontal CVA in January 2021 Continue Eliquis, aspirin, statin (6) Diabetes mellitus, type 2: Plan: a1.c 5.8 continue usual medications DVT Ppx: Eliquis Code status: FULL PCP: Celina Dispo: d/c home ff up with Urologist in 1 week plan of care discussed with patient in detail and at length all questions answered he is understanding, agreeable, comfortable with the plan of care Admission and Anticipated Discharge Date Admission Date: March 29, 2021 Subjective ff up for ureteral stone seen resting in bed, comfortable denies abdominal or back pain minimal dysuria no hematuria no fever/chills no chest pain, dyspnea, palpitations, dizziness no other symptoms Review of Systems Constitutional: all noted and negative except for above Physical Exam Physical Exam: General- oriented x 3, not in distress, speaks in sentences with no effort or accessory muscle use Eyes- anicteric Neck- no JVD Lungs- clear breath sounds bilaterally, no rales/wheezes Heart- normal rate, regular rhythm; no murmurs Abdomen- normal bowel sounds, nondistended, soft, nontender no CVA tenderness Extremities- no pretibial edema, no calf tenderness Neuro- alert, oriented x 3; no gross focal neurologic deficits Skin- warm & dry Results & Data Results & Data ([facility]) Vital Signs (Past 12 Hours) Vital Signs Temp Pulse Resp BP Pulse Ox 03/31/21 07:46 36.3 C L 47 L 20 134/78 96 03/31/21 03:19 36.4 C L 54 L 17 116/67 96 all noted and reviewed including below
--- NOTE | 2021-03-31 13:53 | Hospitalist Progress Note ---
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 Suprapubic and flank pain, hematuria x [address] abd/pelvis with 2 adjacent 4 mm stones within the mid left ureter resulting in mild left hydronephrosis UA abnormal, possible infection 03/30/21 s/p Cystoscopy, Left Retrograde Pyelogram, Left Ureteral Stent Placement by Dr. Quevedo crea increased from 1.9 to 2.5, given IV NSS improved to 2.0 encouraged to drink plenty of fluids, no NSAIDs repeat BMP on ff up with PCP early next week Hg 12 to 9.3 to 8.9, remained stable at 8.9 repeat CBC on ff up with PCP early next week (3) Acute kidney injury: Plan: management per above (4) History of DVT (deep vein thrombosis): Plan: Continue Eliquis (5) History of stroke: Plan: Found to have R frontal CVA in January 2021 Continue Eliquis, aspirin, statin (6) Diabetes mellitus, type 2: Plan: a1.c 5.8 continue usual medications Dispo: d/c home ff up with Urologist in 1 week plan of care discussed with patient in detail and at length all questions answered he is understanding, agreeable, comfortable with the plan of care Admission and Anticipated Discharge Date Admission Date: March 29, 2021 Subjective Follow-up for ureteral stones, status post stent placement, etc. Seen resting in bed, comfortable, sitting up, in good spirit States he feels fine overall Denies abdominal pain, flank pain, back pain, pain with urination Urine pink-tinged Improving No fevers or chills No chest pain, palpitations, dizziness, shortness of breath, no other symptoms States that he is ready for discharge today Physical Exam Physical Exam: General- oriented x 3, not in distress, speaks in sentences with no effort or accessory muscle use Eyes- anicteric Neck- no JVD Lungs- clear BS BL Heart- normal rate, regular rhythm; no murmurs Abdomen- normal bowel sounds, nondistended, soft, nontender Extremities- no pretibial edema, no calf tenderness Neuro- alert, oriented x 3; no gross focal neurologic deficits Skin- warm & dry Results & Data Results & Data ([facility]) Vital Signs (Past 12 Hours) Vital Signs Temp Pulse Resp BP Pulse Ox 03/31/21 07:46 36.3 C L 47 L 20 134/78 96 03/31/21 03:19 36.4 C L 54 L 17 116/67 96 all noted and reviewed including below
--- NOTE | 2021-04-04 17:11 | Discharge Summary ---
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 Also notes colicky lower abdominal pain since yesterday that is constant and radiating to the left flank and back. Denies any nausea or vomiting. No fever or chills. History of kidney stones, most recently a weeks ago that passed on their own. Follows with Duran Solano PA-C at [facility]. Is on Eliquis per recent stroke in January 2021. Denies any headache, lightheadedness, chest pain, SOB, dysuria, diarrhea or constipation. Admission Exam (Per Admitting) Constitutional Gen-AAO x 3, NAD, Afebrile Head-NCAT, EOMI, PERRLA, Anicteric Sclera, No Posterior Pharyngeal Erythema Neck-Supple, No JVD, No Thyromegaly, No Masses, No LAD, No Bruits Lungs-Clear to Auscultation Bilaterally, No Rales, No Rhonchi, No Wheezing, No Crepitus Chest-No S4, +S1, +S2, No S3, No Murmurs, No Rubs, No Gallops, No Ectopy Abdomen-Soft, Bowel Sounds Present, Non Tender, Non Distended, No Hepatomegaly, No Splenomegaly, No Palpable Masses, No Rebound, No Rigidity, No Guarding Musculoskeletal-Full Range of Motion Bilaterally, mild L CVAT Extremities-No Cyanosis, No Clubbing, No Edema Nuero-Cranial Nerves II-XII grossly intact, Motor WNL, DTRs WNL, Strength WNL, Non Focal Psych-Normal Mood Discharge Data Consultations 03/29/21 12:28 ED Decision to Admit Stat 03/29/21 16:01 Consult Urology Routine Procedures Performed Operation Date: 03/30/21 07:00 Actual Procedures p Cystoscopy, Left Retrograde Pyelogram, Left Ureteral Stent Placement(Left) - Keo Quevedo MD ABDOMEN AND PELVIS CT WITHOUT CONTRAST CT DOSE: 511.56 mGy.cm HISTORY: L flank pain LLQ pain hematuria TECHNIQUE: Multiaxial CT images of the abdomen and pelvis were performed without contrast. A dose lowering technique was utilized adhering to the principles of ALARA. COMPARISON STUDY: Abdomen and pelvis CT 02/12/2021. FINDINGS: There again noted multiple bilateral renal calculi measuring up to 6 mm. There is mild left hydronephrosis and left perinephric edema secondary to 2 adjacent obstructing stones within the mid left ureter measuring 4 mm each. These are new from the prior study. No right-sided hydronephrosis or right ureteral stones. The bladder is unremarkable. The prostate gland remains mildly enlarged. Mild dependent changes seen within the lungs posteriorly. The unenhanced liver, gallbladder, pancreas, spleen, and adrenal glands are unremarkable. No retroperitoneal lymphadenopathy. There is a left circumaortic renal vein. No pelvic lymphadenopathy. Trace pelvic free fluid. Suboptimal evaluation for bowel pathology due to the lack of intravenous and oral contrast. However, there is no definite bowel wall thickening or obstruction. Colonic diverticulosis. No evidence for acute diverticulitis. No fractures within the visualized osseous structures. IMPRESSION: 1. There are 2 adjacent 4 mm stones within the mid left ureter resulting in mild left hydronephrosis. These are new from the prior study. 2. Bilateral nephrolithiasis. 3. Colonic diverticulosis. No evidence for acute diverticulitis. 4. No definite bowel wall thickening or obstruction. ACT 112: Negative or not required by law. 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 Suprapubic and flank pain, hematuria x [address] abd/pelvis with 2 adjacent 4 mm stones within the mid left ureter resulting in mild left hydronephrosis UA abnormal, possible infection 03/30/21 s/p Cystoscopy, Left Retrograde Pyelogram, Left Ureteral Stent Placement by Dr. Quevedo crea increased from 1.9 to 2.5, given IV NSS improved to 2.0 encouraged to drink plenty of fluids, no NSAIDs repeat BMP on ff up with PCP early next week Hg 12 to 9.3 to 8.9, remained stable at 8.9 repeat CBC on ff up with PCP early next week (3) Acute kidney injury: management per above (4) History of DVT (deep vein thrombosis): Continue Eliquis (5) History of stroke: Found to have R frontal CVA in January 2021 Continue Eliquis, aspirin, statin (6) Diabetes mellitus, type 2: a1.c 5.8 continue usual medications Dispo: d/c home ff up with Urologist in 1 week plan of care discussed with patient in detail and at length all questions answered he is understanding, agreeable, comfortable with the plan of care
== END 2021-03-31 16:25 | disposition home or self-care (01) | DRG 660 ==
LOC: ED 10:04 → SUATTDRO 13:40 → 3N 13:40
DX: N39.0 Urinary tract infection, site not specified; Z79.01 Long term (current) use of anticoagulants; Z87.891 Personal history of nicotine dependence; Z86.73 Personal history of transient ischemic attack (TIA), and cerebral infarction without residual deficits; E11.9 Type 2 diabetes mellitus without complications; N40.0 Benign prostatic hyperplasia without lower urinary tract symptoms; N17.9 Acute kidney failure, unspecified; N13.2 Hydronephrosis with renal and ureteral calculous obstruction; Z86.718 Personal history of other venous thrombosis and embolism

== ENCOUNTER 2021-06-27 15:23 | Inpatient (IN) ==
--- NOTE | 2021-06-27 15:32 | Emergency Department Note ---
Impression & Plan Stroke, Elevated troponin ADMIT ED Provider Note HPI: The patient is a 70-year-old male with history of CVA, history of DVT on Eliquis, presents the emergency department with a chief complaint of memory issues and confusion from his outpatient providers office at [facility]. Patient arrives via EMS. He tells me that yesterday afternoon he began to feel as if he was not able to process the words that people were speaking to him. He mention the symptoms today to the physician in the outpatient office and was also noted to have some apparent left-sided facial droop that was new and therefore was sent to the ED for further management. On arrival here to the ED the patient is alert and oriented x3, he does not display any drift of the upper extremities or lower extremities and does not have any appreciable facial droop. He is able to process information and answer my questions appropriately. He is otherwise in no acute distress, states that he does still feel an abnormal sensation as if he is not able to process information and words well. ROS: -Neuro: Memory issues, difficulty processing information, reported left-sided facial droop *10 point review systems was conducted and is otherwise negative unless stated above *Outpatient medications and allergy history reviewed PE: General: Alert, NAD HEENT: Normocephalic, atraumatic, trachea midline Eyes: Extraocular eye movement is intact, no scleral erythema Pulmonary: Clear to auscultation bilaterally, no wheezing Cardio: Regular rate and rhythm GI: Abdomen is soft, nontender : No suprapubic tenderness MSK: No evidence of trauma or malformation of the extremities, no edema Skin: No evidence of rash Neuro: Alert, no focal deficits, there is no drift of the upper extremities or lower extremities with testing against gravity, symmetrical facial movements are appreciated, there is no ataxia on [id number] testing bilaterally Psychiatric: Cooperative NIH STROKE SCALE: 1A: Level of consciousness Alert; keenly responsive 0 1B: Ask month and age Both questions right 0 1C: 'Blink eyes' & 'squeeze hands' Performs both tasks 0 2: Horizontal extraocular movements Normal 0 3: Visual robert No visual loss 0 4: Facial palsy Normal symmetry 0 5A: Left arm motor drift No drift for 10 seconds 0 5B: Right arm motor drift No drift for 10 seconds 0 6A: Left leg motor drift No drift for 5 seconds 0 6B: Right leg motor drift No drift for 5 seconds 0 7: Limb Ataxia No ataxia 0 8: Sensation Normal; no sensory loss 0 9: Language/aphasia Normal; no aphasia 0 10: Dysarthria Normal 0 11: Extinction/inattention No abnormality 0 TOTAL NIH SCORE = 0 hall monitor: - An order was placed for continuous cardiac monitoring - Patient was noted to be in sinus rhythm with rate of 65 EKG: Rate: 65 Rhythm: Normal sinus rhythm Intervals: Within normal limits ST changes: No ST elevation Time: 1532 Medical Decision Making: Patient presented to the emergency department with symptoms concerning for a subacute stroke from his outpatient providers office. On arrival here to the ED the patient has an NIH stroke scale of 0 but he does complain of some symptoms consistent with receptive aphasia. Patient has been symptomatic for over 24 hours now, he is not considered a candidate for for TPA, thrombolysis, or thrombectomy. Imaging of the head and neck shows evidence of a subacute stroke. Patient's lab work is otherwise largely unremarkable aside from an elevated troponin at 0.47, patient denies any recent chest pain or shortness of breath. His EKG does not show any acute ischemic changes. Patient was given aspirin in the ED. My reassessment the patient is resting comfortably in bed, case was discussed with the on-call [employer] [facility] and [facility] and secondary stroke work-up as well as management of elevated troponin. Patient was in agreement to the above plan he was admitted in stable condition. * Diagnosis: Subacute stroke, elevated troponin * Disposition: Admission Critical care time: 35 minutes -Time spent at the bedside and management of patient with subacute stroke, interpretation of diagnostic studies, interpretation of EKG in the setting of a newly elevated troponin, discussion with other healthcare providers, arrangement of inpatient admission Scotty Fernandez DO Emergency Medicine Past Med/Surg History Medical History MAGY (acute kidney injury) Anemia BPH (benign prostatic hypertrophy) Diabetes mellitus, type 2 Dyslipidemia History of DVT (deep vein thrombosis) Kidney stones Pulmonary embolism Stroke Surgical History H/O colonoscopy History of back surgery History of cystoscopy History of tympanoplasty of right ear Status post appendectomy Family History Uncle Family history of diabetes mellitus Other Heart disease Social History Smoking Status: Former smoker Tobacco Type: Cigarettes Second Hand Exposure: Yes (FRIEND'S SPOUSE SMOKES-STAYING AT THEIR HOUSE CURR ENTLY); Hx Alcohol Use: No Hx Substance Use: No Preferred Language: Nigerien Communication Ability: Effective Relations Specialist Required: No Beliefs That Will Affect Care: None marital status: / Current Living Situation: Alone Current Living Situation Comment: CURRENTLY LIVING WITH FRIEND SINCE D/C AFTER STROKE 12/2020 current occupation: NOT WORKING How many Children do You have: 0 Feels Safe at Home: Yes Assistive Devices: Glasses Allergies Allergies Allergy/AdvReac Type Severity Reaction Status Date / Time No Known Allergies Allergy Verified 06/27/21 16:09 Home Meds Home Medications Medication Instructions Recorded Confirmed finasteride 5 mg tablet (Proscar) 5 mg PO HS 01/27/21 06/27/21 metformin 1,000 mg tablet 1,000 mg PO BIDM 02/12/21 06/27/21 aspirin 81 mg tablet,delayed 81 mg PO QAM 03/29/21 06/27/21 release (Aspirin Low Dose) atorvastatin 40 mg tablet (Lipitor) 40 mg PO HS 03/29/21 06/27/21 gabapentin 300 mg capsule 300 mg PO QID 03/29/21 06/27/21 (Neurontin) ferrous sulfate 325 mg (65 mg 325 mg PO QAM 06/27/21 06/27/21 iron) tablet (FeroSul) Previous Rx's Medication Instructions Recorded amlodipine 5 mg tablet (Norvasc) 2.5 mg PO QAM #30 tab 02/02/21 apixaban 5 mg tablet (Eliquis) 5 mg PO BID 30 Days #60 tab 02/02/21 tamsulosin 0.4 mg capsule (Flomax) 0.4 mg PO HS #14 cap 03/31/21 Results & Data (ED) Vital Signs Vital Signs - 24 hr 06/27/21 15:14 06/27/21 15:40 06/27/21 15:50 Temperature 36.9 C Temperature Source Oral Pulse Rate 64 63 71 Pulse Rate from SpO2 Sensor 62 72 Pulse Rhythm Regular Pulse Strength Normal Respiratory Rate 20 13 11 L Respiratory Effort / Characteristics Non-Labored Respiratory Depth Normal Blood Pressure 148/94 H Blood Pressure Mean 112 Pulse Oximetry 98 100 100 Oxygen Delivery Method Room Air Sepsis Recent Fever Within 48 Hours No Sepsis New/Unexplained Change in Mental Status No Sepsis Action Taken by Nursing No Action Required 06/27/21 16:00 06/27/21 16:10 06/27/21 16:20 Temperature Temperature Source Pulse Rate 70 61 Pulse Rate from SpO2 Sensor 70 59 L 52 L Pulse Rhythm Pulse Strength Respiratory Rate 18 14 Respiratory Effort / Characteristics Respiratory Depth Blood Pressure 179/118 H Blood Pressure Mean 138 Pulse Oximetry 98 98 95 Oxygen Delivery Method Sepsis Recent Fever Within 48 Hours Sepsis New/Unexplained Change in Mental Status Sepsis Action Taken by Nursing 06/27/21 16:30 06/27/21 16:40 06/27/21 16:50 Temperature Temperature Source Pulse Rate Pulse Rate from SpO2 Sensor 59 L 62 55 L Pulse Rhythm Pulse Strength Respiratory Rate Respiratory Effort / Characteristics Respiratory Depth Blood Pressure 153/92 H Blood Pressure Mean 112 Pulse Oximetry 100 99 97 Oxygen Delivery Method Sepsis Recent Fever Within 48 Hours Sepsis New/Unexplained Change in Mental Status Sepsis Action Taken by Nursing 06/27/21 17:00 06/27/21 17:10 06/27/21 17:20 Temperature Temperature Source Pulse Rate Pulse Rate from SpO2 Sensor 64 59 L 59 L Pulse Rhythm Pulse Strength Respiratory Rate Respiratory Effort / Characteristics Respiratory Depth Blood Pressure 174/98 H Blood Pressure Mean 123 Pulse Oximetry 99 99 95 Oxygen Delivery Method Sepsis Recent Fever Within 48 Hours Sepsis New/Unexplained Change in Mental Status Sepsis Action Taken by Nursing 06/27/21 17:47 06/27/21 17:50 06/27/21 18:00 Temperature Temperature Source Pulse Rate Pulse Rate from SpO2 Sensor 56 L 58 L 53 L Pulse Rhythm Pulse Strength Respiratory Rate Respiratory Effort / Characteristics Respiratory Depth Blood Pressure 171/91 H Blood Pressure Mean 117 Pulse Oximetry 100 96 100 Oxygen Delivery Method Sepsis Recent Fever Within 48 Hours Sepsis New/Unexplained Change in Mental Status Sepsis Action Taken by Nursing 06/27/21 18:10 06/27/21 18:20 06/27/21 18:30 Temperature Temperature Source Pulse Rate Pulse Rate from SpO2 Sensor 54 L 53 L Pulse Rhythm Pulse Strength Respiratory Rate Respiratory Effort / Characteristics Respiratory Depth Blood Pressure Blood Pressure Mean Pulse Oximetry 100 97 88 L Oxygen Delivery Method Sepsis Recent Fever Within 48 Hours Sepsis New/Unexplained Change in Mental Status Sepsis Action Taken by Nursing 06/27/21 18:40 Temperature Temperature Source Pulse Rate 63 Pulse Rate from SpO2 Sensor 61 Pulse Rhythm Pulse Strength Respiratory Rate 24 Respiratory Effort / Characteristics Respiratory Depth Blood Pressure Blood Pressure Mean Pulse Oximetry 100 Oxygen Delivery Method Sepsis Recent Fever Within 48 Hours Sepsis New/Unexplained Change in Mental Status Sepsis Action Taken by Nursing Laboratory Data Result diagrams: 06/27/21 15:44 06/27/21 15:44 Lab Results 06/27/21 06/27/21 06/27/21 Range/Units 15:44 15:44 15:44 WBC 7.09 (4.8-10.8) K/uL RBC 3.65 L (4.7-6.1) M/uL Hgb 11.0 L (14.0-18.0) g/dL Hct 33.8 L (42-52) % MCV 92.6 (80-100) fL MCH 30.1 (25-34) pg MCHC 32.5 (32-36) g/dL RDW Std Deviation 51.8 H (36.4-46.3) fL RDW Coeff of Aranza 15.1 H (11.5-14.5) % Plt Count 172 (130-400) K/uL MPV 9.5 (7.4-10.4) fL Immature Gran % (Auto) 0.8 % Neut % (Auto) 68.2 % Lymph % (Auto) 21.4 % [place] % (Auto) 6.6 % Eos % (Auto) 2.3 % Baso % (Auto) 0.7 % Neut # (Auto) 4.83 (1.4-6.5) K/uL Lymph # (Auto) 1.52 (1.2-3.4) K/uL [place] # (Auto) 0.47 (0.11-0.59) K/uL Eos # (Auto) 0.16 (0-0.5) K/uL Baso # (Auto) 0.05 (0-0.2) K/uL Immature Gran # (Auto) 0.06 H (0.00-0.02) K/uL PT (9.0-12.0) Seconds INR (0.9-1.1) APTT (21.0-31.0) Seconds PTT Ratio Sodium (136-145) mmol/L Potassium (3.5-5.1) mmol/L Chloride (98-107) mmol/L Carbon Dioxide (21-32) mmol/L Anion Gap (3-11) BUN (7-18) mg/dl Creatinine (0.6-1.4) mg/dl Est Cr Clr Drug Dosing Est GFR ( Amer) ml/min Est GFR (Non-Af Amer) ml/min BUN/Creatinine Ratio (10-20) Glucose (70-99) mg/dl Lactate 2.1 H* (0.4-2.0) mmol/L Calcium (8.5-10.1) mg/dl Magnesium (1.8-2.4) mg/dl Total Bilirubin (0.2-1) mg/dl AST (15-37) U/L ALT (12-78) U/L Alkaline Phosphatase (45-117) U/L Ammonia (11-32) umol/L Troponin I (0-0.045) ng/ml Total Protein (6.4-8.2) gm/dl Albumin (3.4-5.0) gm/dl Globulin (2.5-4.0) gm/dl Albumin/Globulin Ratio (0.9-2) Urine Color Urine Appearance (Clear) Urine pH (4.5-7.5) Ur Specific [place] (1.000-1.030) Urine Protein (Negative) Urine Glucose (UA) (Negative) Urine Ketones (Negative) Urine Blood (Negative) Urine Nitrite (Negative) Urine Bilirubin (Negative) Urine Urobilinogen (Negative) Ur Leukocyte Esterase (Negative) Urine WBC (Auto) (0-5) /hpf Urine RBC (Auto) (0-4) /hpf U Hyaline Cast (Auto) (0-5) /lpf U Epithel Cells (Auto) (0-5) /lpf Urine Bacteria (Auto) (Negative) Urine Opiates Screen (Neg) Ur Methadone, Qual (Neg) Urine Barbiturates (Neg) Ur Phencyclidine (PCP) (Neg) U Amphetamin/Meth Scrn (Neg) MDMA (Ecstasy) Screen (Neg) U Benzodiazepines Scrn (Neg) Ur Cocaine Metabolite (Neg) U Marijuana (THC) Screen (Neg) Ethyl Alcohol mg/dL (0-3) mg/dl Blood Type O Positive Antibody Screen NEGATIVE 06/27/21 06/27/21 06/27/21 Range/Units 15:44 15:44 15:44 WBC (4.8-10.8) K/uL RBC (4.7-6.1) M/uL Hgb (14.0-18.0) g/dL Hct (42-52) % MCV (80-100) fL MCH (25-34) pg MCHC (32-36) g/dL RDW Std Deviation (36.4-46.3) fL RDW Coeff of Aranza (11.5-14.5) % Plt Count (130-400) K/uL MPV (7.4-10.4) fL Immature Gran % (Auto) % Neut % (Auto) % Lymph % (Auto) % [place] % (Auto) % Eos % (Auto) % Baso % (Auto) % Neut # (Auto) (1.4-6.5) K/uL Lymph # (Auto) (1.2-3.4) K/uL [place] # (Auto) (0.11-0.59) K/uL Eos # (Auto) (0-0.5) K/uL Baso # (Auto) (0-0.2) K/uL Immature Gran # (Auto) (0.00-0.02) K/uL PT 10.7 (9.0-12.0) Seconds INR 1.1 (0.9-1.1) APTT 32.0 H (21.0-31.0) Seconds PTT Ratio 1.2 Sodium 138 (136-145) mmol/L Potassium 4.5 (3.5-5.1) mmol/L Chloride 106 (98-107) mmol/L Carbon Dioxide 29 (21-32) mmol/L Anion Gap 3.0 (3-11) BUN 22 H (7-18) mg/dl Creatinine 1.12 (0.6-1.4) mg/dl Est Cr Clr Drug Dosing Not Reportable Est GFR ( Amer) 75.7 ml/min Est GFR (Non-Af Amer) 65.3 ml/min BUN/Creatinine Ratio 19.7 (10-20) Glucose 114 H (70-99) mg/dl Lactate (0.4-2.0) mmol/L Calcium 9.2 (8.5-10.1) mg/dl Magnesium 2.0 (1.8-2.4) mg/dl Total Bilirubin 0.4 (0.2-1) mg/dl AST 25 (15-37) U/L ALT 27 (12-78) U/L Alkaline Phosphatase 96 (45-117) U/L Ammonia 10.0 L (11-32) umol/L Troponin I 0.474 H* (0-0.045) ng/ml Total Protein 7.0 (6.4-8.2) gm/dl Albumin 3.6 (3.4-5.0) gm/dl Globulin 3.4 (2.5-4.0) gm/dl Albumin/Globulin Ratio 1.1 (0.9-2) Urine Color Urine Appearance (Clear) Urine pH (4.5-7.5) Ur Specific [place] (1.000-1.030) Urine Protein (Negative) Urine Glucose (UA) (Negative) Urine Ketones (Negative) Urine Blood (Negative) Urine Nitrite (Negative) Urine Bilirubin (Negative) Urine Urobilinogen (Negative) Ur Leukocyte Esterase (Negative) Urine WBC (Auto) (0-5) /hpf Urine RBC (Auto) (0-4) /hpf U Hyaline Cast (Auto) (0-5) /lpf U Epithel Cells (Auto) (0-5) /lpf Urine Bacteria (Auto) (Negative) Urine Opiates Screen (Neg) Ur Methadone, Qual (Neg) Urine Barbiturates (Neg) Ur Phencyclidine (PCP) (Neg) U Amphetamin/Meth Scrn (Neg) MDMA (Ecstasy) Screen (Neg) U Benzodiazepines Scrn (Neg) Ur Cocaine Metabolite (Neg) U Marijuana (THC) Screen (Neg) Ethyl Alcohol mg/dL (0-3) mg/dl Blood Type Antibody Screen 06/27/21 06/27/21 06/27/21 Range/Units 15:44 17:30 17:30 WBC (4.8-10.8) K/uL RBC (4.7-6.1) M/uL Hgb (14.0-18.0) g/dL Hct (42-52) % MCV (80-100) fL MCH (25-34) pg MCHC (32-36) g/dL RDW Std Deviation (36.4-46.3) fL RDW Coeff of Aranza (11.5-14.5) % Plt Count (130-400) K/uL MPV (7.4-10.4) fL Immature Gran % (Auto) % Neut % (Auto) % Lymph % (Auto) % [place] % (Auto) % Eos % (Auto) % Baso % (Auto) % Neut # (Auto) (1.4-6.5) K/uL Lymph # (Auto) (1.2-3.4) K/uL [place] # (Auto) (0.11-0.59) K/uL Eos # (Auto) (0-0.5) K/uL Baso # (Auto) (0-0.2) K/uL Immature Gran # (Auto) (0.00-0.02) K/uL PT (9.0-12.0) Seconds INR (0.9-1.1) APTT (21.0-31.0) Seconds PTT Ratio Sodium (136-145) mmol/L Potassium (3.5-5.1) mmol/L Chloride (98-107) mmol/L Carbon Dioxide (21-32) mmol/L Anion Gap (3-11) BUN (7-18) mg/dl Creatinine (0.6-1.4) mg/dl Est Cr Clr Drug Dosing Est GFR ( Amer) ml/min Est GFR (Non-Af Amer) ml/min BUN/Creatinine Ratio (10-20) Glucose (70-99) mg/dl Lactate (0.4-2.0) mmol/L Calcium (8.5-10.1) mg/dl Magnesium (1.8-2.4) mg/dl Total Bilirubin (0.2-1) mg/dl AST (15-37) U/L ALT (12-78) U/L Alkaline Phosphatase (45-117) U/L Ammonia (11-32) umol/L Troponin I (0-0.045) ng/ml Total Protein (6.4-8.2) gm/dl Albumin (3.4-5.0) gm/dl Globulin (2.5-4.0) gm/dl Albumin/Globulin Ratio (0.9-2) Urine Color Yellow Urine Appearance Clear (Clear) Urine pH 7.0 (4.5-7.5) Ur Specific [place] 1.007 (1.000-1.030) Urine Protein 1+ H (Negative) Urine Glucose (UA) Negative (Negative) Urine Ketones Negative (Negative) Urine Blood 3+ H (Negative) Urine Nitrite Negative (Negative) Urine Bilirubin Negative (Negative) Urine Urobilinogen Negative (Negative) Ur Leukocyte Esterase Trace H (Negative) Urine WBC (Auto) 5-10 H (0-5) /hpf Urine RBC (Auto) >30 H (0-4) /hpf U Hyaline Cast (Auto) 1-5 (0-5) /lpf U Epithel Cells (Auto) 0-5 (0-5) /lpf Urine Bacteria (Auto) Negative (Negative) Urine Opiates Screen Neg (Neg) Ur Methadone, Qual Neg (Neg) Urine Barbiturates Neg (Neg) Ur Phencyclidine (PCP) Neg (Neg) U Amphetamin/Meth Scrn Neg (Neg) MDMA (Ecstasy) Screen Neg (Neg) U Benzodiazepines Scrn Neg (Neg) Ur Cocaine Metabolite Neg (Neg) U Marijuana (THC) Screen Neg (Neg) Ethyl Alcohol mg/dL < 3.0 (0-3) mg/dl Blood Type Antibody Screen Administered Medications Discontinued Medications Aspirin (Aspirin Chew 324 Mg) 324 mg PO NOW STA Stop: 06/27/21 17:20 Last Admin: 06/27/21 17:21 Dose: 324 mg Documented by: [id number] Sodium Chloride (Nss 1000ml) 1,000 mls @ 999 mls/hr IV .Q1H1M WILMER Stop: 06/27/21 17:59 Last Admin: 06/27/21 17:21 Dose: 999 mls/hr Documented by: [id number] Ioversol (Optiray 320 125ml) 120 ml IV ONCE ONE Stop: 06/27/21 17:59 Last Admin: 06/27/21 17:58 Dose: 1 ml Documented by: [id number] Imaging Data Radiologist's Impression: Chest X-Ray 06/27/21 15:21 XR chest 1V portable CLINICAL HISTORY: Stroke Like Symptoms. Evaluate cardiopulmonary status COMPARISON STUDY: 05/03/2021 TECHNIQUE: 1 view of the chest FINDINGS: Single frontal view of the chest demonstrates the cardiomediastinal silhouette to be within normal limits. There is a decreased inspiratory effort with elevation of the hemidiaphragms and crowding of the bronchovascular markings at the lung bases and centrally. The lungs are clear of alveolar opacities. There is no evidence for pleural effusion. There is no evidence for vascular congestion. There is no acute osseous pathology. IMPRESSION: There is a decreased inspiratory effort with otherwise no acute chest disease. ACT 112: Negative or not required by law. Electronically signed by: Jason Nguyen M.D. 06/27/2021 4:[address] 06/27/21 15:[address] OF THE BRAIN; CT ANGIOGRAM OF THE BRAIN; CT ANGIOGRAM OF THE NECK CLINICAL HISTORY: Strokelike symptoms. COMPARISON STUDY: CT of the brain dated 01/30/2021. CT angiogram of the head and neck dated 01/27/2021. TECHNIQUE: Unenhanced axial CT scan of the brain is performed. Subsequently, following the IV administration of 120 of Optiray 320, CT angiogram of the head and neck was performed from the aortic arch to the vertex. Images are reviewed in the axial, sagittal, and coronal planes. 3-D MIPS images are created and assessed. IV contrast was administered without complication. All measurements were calculated based on NASCET criteria. A dose lowering technique was utilized adhering to the principles of ALARA. CT DOSE: 1074.57 mGy.cm FINDINGS: Brain parenchyma: There is age-related involutional change noting mild subcortical and periventricular microangiopathic disease. Right frontal encephalomalacia is consistent with a previous infarct. There is focal loss of deras-white matter differentiation within the high left parietal lobe seen on axial image #19 consistent with a subacute infarct. There is no hemorrhage or midline shift. There is no evidence of enhancing mass lesion on the angiogram phase images. The ventricles, sulci, and cisterns are prominent secondary to involutional change. No extra-axial fluid collection is seen. Thoracic aorta: Visualized portions of the thoracic aorta are normal in caliber. The aortic arch demonstrates standard 3-vessel anatomy. Right carotid arterial system: The right common carotid artery is widely patent, as are the right internal and external carotid arteries. Mild calcified plaque is noted in the carotid bulb. Left carotid arterial system: The left common carotid artery is widely patent, as are the left internal and external carotid arteries. Mild calcified plaque is noted in the carotid bulb. Vertebral arteries: The vertebral arteries are widely patent bilaterally noting a right-sided dominance. Subclavian arteries: Widely patent bilaterally. Intracranial vasculature: There is atherosclerotic calcification of the cavernous carotid and vertebral arteries. The internal carotid arteries are patent at the skull base, as are the anterior and middle cerebral arteries bilaterally. The vertebrobasilar system and posterior cerebral arteries are widely patent. The right vertebral artery is dominant. Intracranial left vertebral artery is diminutive and terminates as the PICA. The basilar artery is diminutive and there are large bilateral posterior communicating arteries. There is no aneurysm, high-grade stenosis, or focal vessel cut off seen throughout the intracranial circulation. Jugular veins: Patent bilaterally. Dural sinuses: Patent. Lung apices: Partially visualized upper lobe lung parenchyma appears clear. Soft tissues: The visualized pharyngeal soft tissues are normal in appearance noting angiographic phase technique. The oropharyngeal airway appears widely patent. The salivary and thyroid glands are normal in appearance. No cervical lymphadenopathy is seen. Skeletal structures: The skeletal structures are osteopenic. The calvarium appears intact. The cervical spine is maintained noting mild multilevel spond ylosis. No lytic or blastic lesion is identified. Orbits: The bony orbits are intact. Orbital contents are normal as visualized. Sinuses and mastoids: Mild mucosal thickening is noted in the maxillary antra. The remaining paranasal sinuses are clear. There are bilateral mastoid effusions. IMPRESSION: 1. There is loss of deras-white matter differentiation in the high left posterior parietal lobe consistent with a subacute infarct. This is new from prior studies. 2. There is no hemorrhage or midline shift. 3. Unremarkable CT angiogram of the brain. 4. Unremarkable CT angiogram of the neck. ACT 112: Negative or not required by law. Electronically signed by: Rick Stone M.D. 06/27/2021 6:22 PM Head CTA 06/27/21 15:[address] OF THE BRAIN; CT ANGIOGRAM OF THE BRAIN; CT ANGIOGRAM OF THE NECK CLINICAL HISTORY: Strokelike symptoms. COMPARISON STUDY: CT of the brain dated 01/30/2021. CT angiogram of the head and neck dated 01/27/2021. TECHNIQUE: Unenhanced axial CT scan of the brain is performed. Subsequently, following the IV administration of 120 of Optiray 320, CT angiogram of the head and neck was performed from the aortic arch to the vertex. Images are reviewed in the axial, sagittal, and coronal planes. 3-D MIPS images are created and assessed. IV contrast was administered without complication. All measurements were calculated based on NASCET criteria. A dose lowering technique was utilized adhering to the principles of ALARA. CT DOSE: 1074.57 mGy.cm FINDINGS: Brain parenchyma: There is age-related involutional change noting mild subcortical and periventricular microangiopathic disease. Right frontal encephalomalacia is consistent with a previous infarct. There is focal loss of deras-white matter differentiation within the high left parietal lobe seen on axial image #19 consistent with a subacute infarct. There is no hemorrhage or midline shift. There is no evidence of enhancing mass lesion on the angiogram phase images. The ventricles, sulci, and cisterns are prominent secondary to involutional change. No extra-axial fluid collection is seen. Thoracic aorta: Visualized portions of the thoracic aorta are normal in caliber. The aortic arch demonstrates standard 3-vessel anatomy. Right carotid arterial system: The right common carotid artery is widely patent, as are the right internal and external carotid arteries. Mild calcified plaque is noted in the carotid bulb. Left carotid arterial system: The left common carotid artery is widely patent, as are the left internal and external carotid arteries. Mild calcified plaque is noted in the carotid bulb. Vertebral arteries: The vertebral arteries are widely patent bilaterally noting a right-sided dominance. Subclavian arteries: Widely patent bilaterally. Intracranial vasculature: There is atherosclerotic calcification of the cavernous carotid and vertebral arteries. The internal carotid arteries are patent at the skull base, as are the anterior and middle cerebral arteries bilaterally. The vertebrobasilar system and posterior cerebral arteries are w idely patent. The right vertebral artery is dominant. Intracranial left vertebral artery is diminutive and terminates as the PICA. The basilar artery is diminutive and there are large bilateral posterior communicating arteries. There is no aneurysm, high-grade stenosis, or focal vessel cut off seen throughout the intracranial circulation. Jugular veins: Patent bilaterally. Dural sinuses: Patent. Lung apices: Partially visualized upper lobe lung parenchyma appears clear. Soft tissues: The visualized pharyngeal soft tissues are normal in appearance noting angiographic phase technique. The oropharyngeal airway appears widely patent. The salivary and thyroid glands are normal in appearance. No cervical lymphadenopathy is seen. Skeletal structures: The skeletal structures are osteopenic. The calvarium appears intact. The cervical spine is maintained noting mild multilevel spondylosis. No lytic or blastic lesion is identified. Orbits: The bony orbits are intact. Orbital contents are normal as visualized. Sinuses and mastoids: Mild mucosal thickening is noted in the maxillary antra. The remaining paranasal sinuses are clear. There are bilateral mastoid effusions. IMPRESSION: 1. There is loss of deras-white matter differentiation in the high left posterior parietal lobe consistent with a subacute infarct. This is new from prior studies. 2. There is no hemorrhage or midline shift. 3. Unremarkable CT angiogram of the brain. 4. Unremarkable CT angiogram of the neck. ACT 112: Negative or not required by law. Electronically signed by: Rick Stone M.D. 06/27/2021 6:22 PM Neck CTA 06/27/21 15:[address] OF THE BRAIN; CT ANGIOGRAM OF THE BRAIN; CT ANGIOGRAM OF THE NECK CLINICAL HISTORY: Strokelike symptoms. COMPARISON STUDY: CT of the brain dated 01/30/2021. CT angiogram of the head and neck dated 01/27/2021. TECHNIQUE: Unenhanced axial CT scan of the brain is performed. Subsequently, following the IV administration of 120 of Optiray 320, CT angiogram of the head and neck was performed from the aortic arch to the vertex. Images are reviewed in the axial, sagittal, and coronal planes. 3-D MIPS images are created and assessed. IV contrast was administered without complication. All measurements were calculated based on NASCET criteria. A dose lowering technique was utilized adhering to the principles of ALARA. CT DOSE: 1074.57 mGy.cm FINDINGS: Brain parenchyma: There is age-related involutional change noting mild subcortical and periventricular microangiopathic disease. Right frontal encephalomalacia is consistent with a previous infarct. There is focal loss of deras-white matter differentiation within the high left parietal lobe seen on axi al image #19 consistent with a subacute infarct. There is no hemorrhage or midline shift. There is no evidence of enhancing mass lesion on the angiogram phase images. The ventricles, sulci, and cisterns are prominent secondary to involutional change. No extra-axial fluid collection is seen. Thoracic aorta: Visualized portions of the thoracic aorta are normal in caliber. The aortic arch demonstrates standard 3-vessel anatomy. Right carotid arterial system: The right common carotid artery is widely patent, as are the right internal and external carotid arteries. Mild calcified plaque is noted in the carotid bulb. Left carotid arterial system: The left common carotid artery is widely patent, as are the left internal and external carotid arteries. Mild calcified plaque is noted in the carotid bulb. Vertebral arteries: The vertebral arteries are widely patent bilaterally noting a right-sided dominance. Subclavian arteries: Widely patent bilaterally. Intracranial vasculature: There is atherosclerotic calcification of the cavernous carotid and vertebral arteries. The internal carotid arteries are patent at the skull base, as are the anterior and middle cerebral arteries bilaterally. The vertebrobasilar system and posterior cerebral arteries are widely patent. The right vertebral artery is dominant. Intracranial left vertebral artery is diminutive and terminates as the PICA. The basilar artery is diminutive and there are large bilateral posterior communicating arteries. There is no aneurysm, high-grade stenosis, or focal vessel cut off seen throughout the intracranial circulation. Jugular veins: Patent bilaterally. Dural sinuses: Patent. Lung apices: Partially visualized upper lobe lung parenchyma appears clear. Soft tissues: The visualized pharyngeal soft tissues are normal in appearance noting angiographic phase technique. The oropharyngeal airway appears widely patent. The salivary and thyroid glands are normal in appearance. No cervical lymphadenopathy is seen. Skeletal structures: The skeletal structures are osteopenic. The calvarium appears intact. The cervical spine is maintained noting mild multilevel spondylosis. No lytic or blastic lesion is identified. Orbits: The bony orbits are intact. Orbital contents are normal as visualized. Sinuses and mastoids: Mild mucosal thickening is noted in the maxillary antra. The remaining paranasal sinuses are clear. There are bilateral mastoid effusions. IMPRESSION: 1. There is loss of deras-white matter differentiation in the high left posterior parietal lobe consistent with a subacute infarct. This is new from prior studies. 2. There is no hemorrhage or midline shift. 3. Unremarkable CT angiogram of the brain. 4. Unremarkable CT angiogram of the neck. ACT 112: Negative or not required by law. Electronically signed by: Rick Stone M.D. 06/27/2021 6:22 PM Discharge Plan Visit Data Chief Complaint: TIA Symptoms ED Provider: Scotty Fernandez Discharge Problem: Stroke, Elevated troponin Forms Stand Alone Forms: My [facility] Prescriptions Prescriptions: No Action finasteride [Proscar] 5 mg tablet 5 mg PO HS RF: 0 Eliquis 5 mg Tablet 5 mg PO BID 30 Days Qty: 60 RF: 3 amlodipine [Norvasc] 5 mg Tablet 2.5 mg PO QAM Qty: 30 RF: 3 metformin 1,000 mg tablet 1,000 mg PO BIDM RF: 0 ferrous sulfate [FeroSul] 325 mg (65 mg iron) tablet 325 mg PO QAM RF: 0 gabapentin [Neurontin] 300 mg capsule 300 mg PO QID RF: 0 atorvastatin [Lipitor] 40 mg tablet 40 mg PO HS RF: 0 aspirin [Aspirin Low Dose] 81 mg tablet,delayed release (DR/EC) 81 mg PO QAM RF: 0 tamsulosin [Flomax] 0.4 mg capsule 0.4 mg PO HS Qty: 14 RF: 1 Referrals Referrals: Keo Patrick DO [Primary Care Provider] - Discharge Problem: Stroke Qualifiers: CVA mechanism: unspecified Qualified Code(s): I63.9 - Cerebral infarction, uns pecified
[2021-06-27 15:54] LABS: Basophils # (auto) 0.05 K/uL (0-0.2); Basophils % (auto) 0.7 %; Eosinophils # (auto) 0.16 K/uL (0-0.5); Eosinophils % (auto) 2.3 %; Hematocrit (blood only) 33.8 % (42-52); Immature Granulocytes # (auto) 0.06 K/uL (0.00-0.02); Immature Granulocytes % (auto) 0.8 %; Lymphocytes # (auto) 1.52 K/uL (1.2-3.4); Lymphocytes % (auto) 21.4 %; Mean Corpuscular Hemoglobin 30.1 pg (25-34); Mean Corpuscular Hgb Conc 32.5 g/dL (32-36); Mean Corpuscular Volume 92.6 fL (80-100); Mean Platelet Volume 9.5 fL (7.4-10.4); Monocytes # (auto) 0.47 K/uL (0.11-0.59); Monocytes % (auto) 6.6 %; Neutrophils # (auto) 4.83 K/uL (1.4-6.5); Neutrophils % (auto) 68.2 %; Platelet Count 172 K/uL (130-400); RDW Coefficient of Variation 15.1 % (11.5-14.5); RDW Standard Deviation 51.8 fL (36.4-46.3); Red Blood Count 3.65 M/uL (4.7-6.1); White Blood Count 7.09 K/uL (4.8-10.8)
[2021-06-27 16:05] LABS: INR 1.1 (0.9-1.1); Partial Thromboplastin Ratio 1.2; Prothrombin Time 10.7 Seconds (9.0-12.0)
[2021-06-27 16:16] LABS: Alanine Aminotransferase 27 U/L (12-78); Albumin Level 3.6 gm/dl (3.4-5.0); Aspartate Aminotransferase 25 U/L (15-37); BUN Creatinine Ratio 19.7 (10-20); Blood Urea Nitrogen 22 mg/dl (7-18); Calcium 9.2 mg/dl (8.5-10.1); Carbon Dioxide 29 mmol/L (21-32); Chloride 106 mmol/L (98-107); Est GFR (African American) 75.7 ml/min; Est GFR (Non-African American) 65.3 ml/min; Glucose 114 mg/dl (70-99); Potassium 4.5 mmol/L (3.5-5.1); Sodium 138 mmol/L (136-145)
--- NOTE | 2021-06-27 16:22 | XRay Report ---
XR chest 1V portable CLINICAL HISTORY: Stroke Like Symptoms. Evaluate cardiopulmonary status COMPARISON STUDY: 05/03/2021 TECHNIQUE: 1 view of the chest FINDINGS: Single frontal view of the chest demonstrates the cardiomediastinal silhouette to be within normal li mits. There is a decreased inspiratory effort with elevation of the hemidiaphragms and crowding of th e bronchovascular markings at the lung bases and centrally. The lungs are clear of alveolar opacities . There is no evidence for pleural effusion. There is no evidence for vascular congestion. There is n o acute osseous pathology. IMPRESSION: There is a decreased inspiratory effort with otherwise no acute chest disease. ACT 112: Negative or not required by law. Electronically signed by: Jason Nguyen M.D. 06/27/2021 4:21 PM
[2021-06-27] MEDS ORDERED: SODIUM CHLORIDE 0.9% 1000ML 1,000 ML IV SCH (16:59)
[2021-06-27 17:06] LABS: Albumin Globulin Ratio 1.1 (0.9-2); Alkaline Phosphatase 96 U/L (45-117); Bilirubin,Total 0.4 mg/dl (0.2-1); Globulin 3.4 gm/dl (2.5-4.0)
[2021-06-27] MEDS ORDERED: ASPIRIN CHEW 324 MG PO STA (17:19)
[2021-06-27 17:35] LABS: Troponin I 0.474 ng/ml (0-0.045)
[2021-06-27 17:47] LABS: Appearance Urine Clear (Clear); Bacteria Urine Automated Negative (Negative); Bilirubin Urine Negative (Negative); Blood Urine 3+ (Negative); Color Urine Yellow; Epithelial Cell Urine Auto 0-5 /lpf (0-5); Glucose Urine UA Negative (Negative); Ketones Urine Negative (Negative); Leukocyte Esterase Urine Trace (Negative); Nitrite Urine Negative (Negative); Protein Urine 1+ (Negative); RBC Urine Automated >30 /hpf (0-4); Specific Gravity Urine 1.007 (1.000-1.030); Urobilinogen Urine Negative (Negative)
[2021-06-27] MEDS ORDERED: OPTIRAY 320 125ml IV ONE (17:58)
--- NOTE | 2021-06-27 17:58 | Electrocardiogram Report ---
Test Reason : Blood Pressure : / mmHG Vent. Rate : 065 BPM Atrial Rate : 065 BPM P-R Int : 148 ms QRS Dur : 076 ms QT Int : 416 ms P-R-T Axes : 059 -03 051 degrees QTc Int : 432 ms Normal sinus rhythm Normal ECG When compared with ECG of 27-JAN-2021 09:34, No significant change was found Confirmed by Philippe Owusu ([id number]) on 06/27/2021 5:58:31 PM Referred By: REFERRED SELF Confirmed By:Jayson Owusu
--- NOTE | 2021-06-27 18:23 | CT Scan Report ---
UNENHANCED CT OF THE BRAIN; CT ANGIOGRAM OF THE BRAIN; CT ANGIOGRAM OF THE NECK CLINICAL HISTORY: Strokelike symptoms. COMPARISON STUDY: CT of the brain dated 01/30/2021. CT angiogram of the head and neck dated 01/27/2021. TECHNIQUE: Unenhanced axial CT scan of the brain is performed. Subsequently, following the IV adminis tration of 120 of Optiray 320, CT angiogram of the head and neck was performed from the aortic arch t o the vertex. Images are reviewed in the axial, sagittal, and coronal planes. 3-D MIPS images are cre ated and assessed. IV contrast was administered without complication. All measurements were calculate d based on NASCET criteria. A dose lowering technique was utilized adhering to the principles of ALA RA. CT DOSE: 1074.57 mGy.cm FINDINGS: Brain parenchyma: There is age-related involutional change noting mild subcortical and periventricula r microangiopathic disease. Right frontal encephalomalacia is consistent with a previous infarct. The re is focal loss of deras-white matter differentiation within the high left parietal lobe seen on axia l image #19 consistent with a subacute infarct. There is no hemorrhage or midline shift. There is no evidence of enhancing mass lesion on the angiogram phase images. The ventricles, sulci, and cisterns are prominent secondary to involutional change. No extra-axial fluid collection is seen. Thoracic aorta: Visualized portions of the thoracic aorta are normal in caliber. The aortic arch demo nstrates standard 3-vessel anatomy. Right carotid arterial system: The right common carotid artery is widely patent, as are the right int ernal and external carotid arteries. Mild calcified plaque is noted in the carotid bulb. Left carotid arterial system: The left common carotid artery is widely patent, as are the left internal communications intern al and external carotid arteries. Mild calcified plaque is noted in the carotid bulb. Vertebral arteries: The vertebral arteries are widely patent bilaterally noting a right-sided dominan ce. Subclavian arteries: Widely patent bilaterally. Intracranial vasculature: There is atherosclerotic calcification of the cavernous carotid and vertebr al arteries. The internal carotid arteries are patent at the skull base, as are the anterior and midd le cerebral arteries bilaterally. The vertebrobasilar system and posterior cerebral arteries are wide ly patent. The right vertebral artery is dominant. Intracranial left vertebral artery is diminutive a nd terminates as the PICA. The basilar artery is diminutive and there are large bilateral posterior c ommunicating arteries. There is no aneurysm, high-grade stenosis, or focal vessel cut off seen throug hout the intracranial circulation. Jugular veins: Patent bilaterally. Dural sinuses: Patent. Lung apices: Partially visualized upper lobe lung parenchyma appears clear. Soft tissues: The visualized pharyngeal soft tissues are normal in appearance noting angiographic pha se technique. The oropharyngeal airway appears widely patent. The salivary and thyroid glands are nor mal in appearance. No cervical lymphadenopathy is seen. Skeletal structures: The skeletal structures are osteopenic. The calvarium appears intact. The cervic al spine is maintained noting mild multilevel spondylosis. No lytic or blastic lesion is identified. Orbits: The bony orbits are intact. Orbital contents are normal as visualized. Sinuses and mastoids: Mild mucosal thickening is noted in the maxillary antra. The remaining paranasa l sinuses are clear. There are bilateral mastoid effusions. IMPRESSION: 1. There is loss of deras-white matter differentiation in the high left posterior parietal lobe consis tent with a subacute infarct. This is new from prior studies. 2. There is no hemorrhage or midline shift. 3. Unremarkable CT angiogram of the brain. 4. Unremarkable CT angiogram of the neck. ACT 112: Negative or not required by law. Electronically signed by: Rick Stone M.D. 06/27/2021 6:22 PM
[2021-06-27 18:38] LABS: Amphetamines+Metham, Urine Neg (Neg); Barbiturates, Urine Neg (Neg); Benzodiazepine, Urine Neg (Neg); Cocaine, Urine Neg (Neg); MDMA (Ecstacy), Urine Neg (Neg); Methadone, Urine Neg (Neg); Opiate, Urine Neg (Neg); Phencyclidine, Urine Neg (Neg)
--- NOTE | 2021-06-27 19:15 | History & Physical Report ---
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 Subacute left parietal infarct Acute memory impairment since yesterday, noted to have L facial droop in clinic today and sent to ED CT head with loss of deras-white matter differentiation in the high left posterior parietal lobe consistent with a subacute infarct. This is new from prior studies Patient states he has been compliant with Eliquis BID and baby aspirin daily Facial droop has resolved since earlier today. Still feels cognition is slower than baseline Given aspirin 324mg in ED. Continue aspirin, Eliquis BID, statin Brain MRI w/wo, echo with bubble study, routine neuro consult, PT/OT/speech evaluations Keep NPO until passes dysphagia screen Troponin elevation Trop elevation of 0.474 initially No chest pain, no acute ST changes on EKG, no history of CAD Trend troponin, monitor on telemetry Lactic acid elevation Mildly elevated at 2.1, likely due to home metformin use Received IV fluids in ED, repeat lactate pending History of DVT In 1980s and . 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 Rodriguez. Please see addendum. 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 Presented to clinic today due to acute memory loss. Per outpatient note, patient woke up yesterday and was not able to remember names of people he knew and unable to do checkbook calculations. Symptoms began suddenly yesterday and have persisted. No falls. Was noted to have left facial droop as well as aphasia and memory loss. History of right frontal lobe infarct in January 2021 on Eliquis. Until recently has lived with friends and then transition back to living alone a week ago. Manages his own medication and states he has been compliant with all, including baby aspirin and twice daily Eliquis. Was sent from clinic to ED for further evaluation. Upon arrival to ED, facial droop had resolved. Patient answering questions appropriately but still feels as though he is not interpreting or understanding what people are saying to him at his normal speed. Denies any focal weakness or difficulty with ambulation. No sensory changes to extremities. No fever, chills, headache, lightheadedness, chest pain, shortness of breath, nausea, vomiting, abdominal pain, dysuria, diarrhea or constipation. Allergies Allergy/AdvReac Type Severity Reaction Status Date / Time No Known Allergies Allergy Verified 06/27/21 16:09 Home Medications Medication Instructions Recorded Confirmed Type finasteride 5 mg tablet (Proscar) 5 mg PO HS 01/27/21 06/27/21 History amlodipine 5 mg tablet (Norvasc) 2.5 mg PO QAM #30 tab 02/02/21 06/27/21 Rx apixaban 5 mg tablet (Eliquis) 5 mg PO BID 30 Days #60 tab 02/02/21 06/27/21 Rx metformin 1,000 mg tablet 1,000 mg PO BIDM 02/12/21 06/27/21 History aspirin 81 mg tablet,delayed 81 mg PO QAM 03/29/21 06/27/21 History release (Aspirin Low Dose) atorvastatin 40 mg tablet (Lipitor) 40 mg PO HS 03/29/21 06/27/21 History gabapentin 300 mg capsule 300 mg PO QID 03/29/21 06/27/21 History (Neurontin) tamsulosin 0.4 mg capsule (Flomax) 0.4 mg PO HS #14 cap 03/31/21 06/27/21 Rx ferrous sulfate 325 mg (65 mg 325 mg PO QAM 06/27/21 06/27/21 History iron) tablet (FeroSul) Past Med/Surg History Medical History (Updated 06/27/21 @ 20:24 by Colleen Hernandez PA-C) MAGY (acute kidney injury) 02/2021- 03/2021 with continuing improving creatinine (2.02 03/31/21 > 1.51 05/03/21) Anemia hgb stable in the ' BPH (benign prostatic hypertrophy) Diabetes mellitus, type 2 NIDDM Dyslipidemia History of DVT (deep vein thrombosis) 1993- on Eliquis Kidney stones Pulmonary embolism 1993- on Eliquis Stroke 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 ischemic stroke, residual mild weakness and short- term memory impairment Surgical History H/O colonoscopy History of back surgery No hardware History of cystoscopy Cystoscopy, left retropyelogram, Left ureteral stent placement (03/30/21): L[facility] at [facility] History of tympanoplasty of right ear Status post appendectomy Family History Uncle Family history of diabetes mellitus Other Heart disease Social History Smoking Status: Former smoker Tobacco Type: Cigarettes Second Hand Exposure: Yes (FRIEND'S SPOUSE SMOKES-STAYING AT THEIR HOUSE CURRENTLY); Hx Alcohol Use: No Hx Substance Use: No Preferred Language: Hebrew Communication Ability: Effective Coding Validator Required: No Beliefs That Will Affect Care: None marital status: / Current Living Situation: Alone current occupation: NOT WORKING How many Children do You have: 0 Other Information That Helps Us Care for You: No Feels Safe at Home: Yes Safety Concerns: Feels Safe At This Time Assistive Devices: Glasses Review of Systems Review of Systems: At least ten systems reviewed and negative except as noted in the HPI. Physical Exam Physical Exam: General Appearance: WD/WN, vitals as above, NAD, sitting up in bed, pleasant, conversing easily Head: normocephalic, atraumatic Eyes: normal inspection, PERRL, conjunctivae normal, anicteric sclerae ENT: external ear and nose normal, oropharynx normal Neck: normal visual inspection, trachea midline, no thyromegaly Respiratory: normal respiratory effort, lungs clear to auscultation, no wheeze, rales, rhonchi. No accessory muscle use Cardiovascular: regular rate, rhythm, no murmur, normal peripheral pulses, no BLE edema. Vessels: no JVD Chest: normal inspection of chest Abdomen/GI: normal bowel sounds, soft, nontender, no hepatosplenomegaly Extremities/Musculoskeletal: no cyanosis or clubbing, extremities motor strength 5/5 Neurologic: PERRL, EOMI, accommodation nl, no face palsy, no dysarthria, CN's II-XI intact bilaterally and moves all extremities Psychiatric: A+Ox3, euthymic affect Skin: no rashes, normal color, warm/dry Results & Data Results & Data ([facility]) Vital Signs (Past 12 Hours) Vital Signs Temp Pulse Resp BP Pulse Ox 06/27/21 18:40 63 24 100 06/27/21 18:30 88 L 06/27/21 18:20 97 06/27/21 18:10 100 06/27/21 18:00 171/91 H 100 06/27/21 17:50 96 06/27/21 17:47 100 06/27/21 17:20 95 06/27/21 17:10 99 06/27/21 17:00 174/98 H 99 06/27/21 16:50 97 06/27/21 16:40 99 06/27/21 16:30 153/92 H 100 06/27/21 16:20 95 06/27/21 16:10 61 14 98 06/27/21 16:00 70 18 179/118 H 98 06/27/21 15:50 71 11 L 100 06/27/21 15:40 63 13 100 06/27/21 15:14 36.9 C 64 20 148/94 H 98 Laboratory Results Short CBC 06/27/21 Range/Units 15:44 WBC 7.09 (4.8-10.8) K/uL Hgb 11.0 L (14.0-18.0) g/dL Hct 33.8 L (42-52) % Plt Count 172 (130-400) K/uL BMP 06/27/21 15:44 Sodium 138 Potassium 4.5 Chloride 106 Carbon Dioxide 29 BUN 22 H Creatinine 1.12 Glucose 114 H Calcium 9.2 Cardiac Enzymes 06/27/21 Range/Units 15:44 Troponin I 0.474 H* (0-0.045) ng/ml Liver Function 06/27/21 Range/Units 15:44 Total Bilirubin 0.4 (0.2-1) mg/dl AST 25 (15-37) U/L ALT 27 (12-78) U/L Alkaline Phosphatase 96 (45-117) U/L Albumin 3.6 (3.4-5.0) gm/dl Urine 06/27/21 Range/Units 17:30 Urine Color Yellow Urine Appearance Clear (Clear) Urine pH 7.0 (4.5-7.5) Ur Specific [place] 1.007 (1.000-1.030) Urine Protein 1+ H (Negative) Urine Glucose (UA) Negative (Negative) Diagnostic Findings Chest X-Ray 06/27/21 15:21 XR chest 1V portable CLINICAL HISTORY: Stroke Like Symptoms. Evaluate cardiopulmonary status COMPARISON STUDY: 05/03/2021 TECHNIQUE: 1 view of the chest FINDINGS: Single frontal view of the chest demonstrates the cardiomediastinal silhouette to be within normal limits. There is a decreased inspiratory effort with elevation of the hemidiaphragms and crowding of the bronchovascular markings at the lung bases and centrally. The lungs are clear of alveolar opacities. There is no evidence for pleural effusion. There is no evidence for vascular congestion. There is no acute osseous pathology. IMPRESSION: There is a decreased inspiratory effort with otherwise no acute chest disease. ACT 112: Negative or not required by law. Electronically signed by: Jason Nguyen M.D. 06/27/2021 4:[address] 06/27/21 15:[address] OF THE BRAIN; CT ANGIOGRAM OF THE BRAIN; CT ANGIOGRAM OF THE NECK CLINICAL HISTORY: Strokelike symptoms. COMPARISON STUDY: CT of the brain dated 01/30/2021. CT angiogram of the head and neck dated 01/27/2021. TECHNIQUE: Unenhanced axial CT scan of the brain is performed. Subsequently, following the IV administration of 120 of Optiray 320, CT angiogram of the head and neck was performed from the aortic arch to the vertex. Images are reviewed in the axial, sagittal, and coronal planes. 3-D MIPS images are created and assessed. IV contrast was administered without complication. All measurements were calculated based on NASCET criteria. A dose lowering technique was utilized adhering to the principles of ALARA. CT DOSE: 1074.57 mGy.cm FINDINGS: Brain parenchyma: There is age-related involutional change noting mild subcortical and periventricular microangiopathic disease. Right frontal encephalomalacia is consistent with a previous infarct. There is focal loss of deras-white matter differentiation within the high left parietal lobe seen on axial image #19 consistent with a subacute infarct. There is no hemorrhage or midline shift. There is no evidence of enhancing mass lesion on the angiogram phase images. The ventricles, sulci, and cisterns are prominent secondary to involutional change. No extra-axial fluid collection is seen. Thoracic aorta: Visualized portions of the thoracic aorta are normal in caliber. The aortic arch demonstrates standard 3-vessel anatomy. Right carotid arterial system: The right common carotid artery is widely patent, as are the right internal and external carotid arteries. Mild calcified plaque is noted in the carotid bulb. Left carotid arterial system: The left common carotid artery is widely patent, as are the left internal and external carotid arteries. Mild calcified plaque is noted in the carotid bulb. Vertebral arteries: The vertebral arteries are widely patent bilaterally noting a right-sided dominance. Subclavian arteries: Widely patent bilaterally. Intracranial vasculature: There is atherosclerotic calcification of the cavernous carotid and vertebral arteries. The internal carotid arteries are patent at the skull base, as are the anterior and middle cerebral arteries bilaterally. The vertebrobasilar system and posterior cerebral arteries are widely patent. The right vertebral artery is dominant. Intracranial left vertebral artery is diminutive and terminates as the PICA. The basilar artery is diminutive and there are large bilateral posterior communicating arteries. There is no aneurysm, high-grade stenosis, or focal vessel cut off seen throughout the intracranial circulation. Jugular veins: Patent bilaterally. Dural sinuses: Patent. Lung apices: Partially visualized upper lobe lung parenchyma appears clear. Soft tissues: The visualized pharyngeal soft tissues are normal in appearance noting angiographic phase technique. The oropharyngeal airway appears widely patent. The salivary and thyroid glands are normal in appearance. No cervical lymphadenopathy is seen. Skeletal structures: The skeletal structures are osteopenic. The calvarium appears intact. The cervical spine is maintained noting mild multilevel spondylosis. No lytic or blastic lesion is identified. Orbits: The bony orbits are intact. Orbital contents are normal as visualized. Sinuses and mastoids: Mild mucosal thickening is noted in the maxillary antra. The remaining paranasal sinuses are clear. There are bilateral mastoid effusions. IMPRESSION: 1. There is loss of deras-white matter differentiation in the high left posterior parietal lobe consistent with a subacute infarct. This is new from prior studies. 2. There is no hemorrhage or midline shift. 3. Unremarkable CT angiogram of the brain. 4. Unremarkable CT angiogram of the neck. ACT 112: Negative or not required by law. Electronically signed by: Rick Stone M.D. 06/27/2021 6:22 PM Head CTA 06/27/21 15:[address] OF THE BRAIN; CT ANGIOGRAM OF THE BRAIN; CT ANGIOGRAM OF THE NECK CLINICAL HISTORY: Strokelike symptoms. COMPARISON STUDY: CT of the brain dated 01/30/2021. CT angiogram of the head and neck dated 01/27/2021. TECHNIQUE: Unenhanced axial CT scan of the brain is performed. Subsequently, following the IV administration of 120 of Optiray 320, CT angiogram of the head and neck was performed from the aortic arch to the vertex. Images are reviewed in the axial, sagittal, and coronal planes. 3-D MIPS images are created and assessed. IV contrast was administered without complication. All measurements were calculated based on NASCET criteria. A dose lowering technique was utilized adhering to the principles of ALARA. CT DOSE: 1074.57 mGy.cm FINDINGS: Brain parenchyma: There is age-related involutional change noting mild subcortical and periventricular microangiopathic disease. Right frontal encephalomalacia is consistent with a previous infarct. There is focal loss of deras-white matter differentiation within the high left parietal lobe seen on axial image #19 consistent with a subacute infarct. There is no hemorrhage or midline shift. There is no evidence of enhancing mass lesion on the angiogram phase images. The ventricles, sulci, and cisterns are prominent secondary to involutional change. No extra-axial fluid collection is seen. Thoracic aorta: Visualized portions of the thoracic aorta are normal in caliber. The aortic arch demonstrates standard 3-vessel anatomy. Right carotid arterial system: The right common carotid artery is widely patent, as are the right internal and external carotid arteries. Mild calcified plaque is noted in the carotid bulb. Left carotid arterial system: The left common carotid artery is widely patent, as are the left internal and external carotid arteries. Mild calcified plaque is noted in the carotid bulb. Vertebral arteries: The vertebral arteries are widely patent bilaterally noting a right-sided dominance. Subclavian arteries: Widely patent bilaterally. Intracranial vasculature: There is atherosclerotic calcification of the cavernous carotid and vertebral arteries. The internal carotid arteries are patent at the skull base, as are the anterior and middle cerebral arteries bilaterally. The vertebrobasilar system and posterior cerebral arteries are widely patent. The right vertebral artery is dominant. Intracranial left vertebral artery is diminutive and terminates as the PICA. The basilar artery is diminutive and there are large bilateral posterior communicating arteries. There is no aneurysm, high-grade stenosis, or focal vessel cut off seen throughout the intracranial circulation. Jugular veins: Patent bilaterally. Dural sinuses: Patent. Lung apices: Partially visualized upper lobe lung parenchyma appears clear. Soft tissues: The visualized pharyngeal soft tissues are normal in appearance noting angiographic phase technique. The oropharyngeal airway appears widely patent. The salivary and thyroid glands are normal in appearance. No cervical lymphadenopathy is seen. Skeletal structures: The skeletal structures are osteopenic. The calvarium rick ears intact. The cervical spine is maintained noting mild multilevel spondylosis. No lytic or blastic lesion is identified. Orbits: The bony orbits are intact. Orbital contents are normal as visualized. Sinuses and mastoids: Mild mucosal thickening is noted in the maxillary antra. The remaining paranasal sinuses are clear. There are bilateral mastoid effusions. IMPRESSION: 1. There is loss of deras-white matter differentiation in the high left posterior parietal lobe consistent with a subacute infarct. This is new from prior studies. 2. There is no hemorrhage or midline shift. 3. Unremarkable CT angiogram of the brain. 4. Unremarkable CT angiogram of the neck. ACT 112: Negative or not required by law. Electronically signed by: Rick Stone M.D. 06/27/2021 6:22 PM Neck CTA 06/27/21 15:[address] OF THE BRAIN; CT ANGIOGRAM OF THE BRAIN; CT ANGIOGRAM OF THE NECK CLINICAL HISTORY: Strokelike symptoms. COMPARISON STUDY: CT of the brain dated 01/30/2021. CT angiogram of the head and neck dated 01/27/2021. TECHNIQUE: Unenhanced axial CT scan of the brain is performed. Subsequently, following the IV administration of 120 of Optiray 320, CT angiogram of the head and neck was performed from the aortic arch to the vertex. Images are reviewed in the axial, sagittal, and coronal planes. 3-D MIPS images are created and assessed. IV contrast was administered without complication. All measurements were calculated based on NASCET criteria. A dose lowering technique was utilized adhering to the principles of ALARA. CT DOSE: 1074.57 mGy.cm FINDINGS: Brain parenchyma: There is age-related involutional change noting mild subcortical and periventricular microangiopathic disease. Right frontal encephalomalacia is consistent with a previous infarct. There is focal loss of deras-white matter differentiation within the high left parietal lobe seen on axial image #19 consistent with a subacute infarct. There is no hemorrhage or midline shift. There is no evidence of enhancing mass lesion on the angiogram phase images. The ventricles, sulci, and cisterns are prominent secondary to involutional change. No extra-axial fluid collection is seen. Thoracic aorta: Visualized portions of the thoracic aorta are normal in caliber. The aortic arch demonstrates standard 3-vessel anatomy. Right carotid arterial system: The right common carotid artery is widely patent, as are the right internal and external carotid arteries. Mild calcified plaque is noted in the carotid bulb. Left carotid arterial system: The left common carotid artery is widely patent, as are the left internal and external carotid arteries. Mild calcified plaque is noted in the carotid bulb. Vertebral arteries: The vertebral arteries are widely patent bilaterally noting a right-sided dominance. Subclavian arteries: Widely patent bilaterally. Intracranial vasculature: There is atherosclerotic calcification of the cavernous carotid and vertebral arteries. The internal carotid arteries are patent at the skull base, as are the anterior and middle cerebral arteries bilaterally. The vertebrobasilar system and posterior cerebral arteries are widely patent. The right vertebral artery is dominant. Intracranial left vertebral artery is diminutive and terminates as the PICA. The basilar artery is diminutive and there are large bilateral posterior communicating arteries. There is no aneurysm, high-grade stenosis, or focal vessel cut off seen throughout the intracranial circulation. Jugular veins: Patent bilaterally. Dural sinuses: Patent. Lung apices: Partially visualized upper lobe lung parenchyma appears clear. Soft tissues: The visualized pharyngeal soft tissues are normal in appearance noting angiographic phase technique. The oropharyngeal airway appears widely patent. The salivary and thyroid glands are normal in appearance. No cervical lymphadenopathy is seen. Skeletal structures: The skeletal structures are osteopenic. The calvarium appears intact. The cervical spine is maintained noting mild multilevel spondylosis. No lytic or blastic lesion is identified. Orbits: The bony orbits are intact. Orbital contents are normal as visualized. Sinuses and mastoids: Mild mucosal thickening is noted in the maxillary antra. The remaining paranasal sinuses are clear. There are bilateral mastoid effusio ns. IMPRESSION: 1. There is loss of deras-white matter differentiation in the high left posterior parietal lobe consistent with a subacute infarct. This is new from prior studies. 2. There is no hemorrhage or midline shift. 3. Unremarkable CT angiogram of the brain. 4. Unremarkable CT angiogram of the neck. ACT 112: Negative or not required by law. Electronically signed by: Rick Stone M.D. 06/27/2021 6:22 PM Supervising Physician Co-Signing Physician Notes Care coordinated with Colleen Hernandez PA-C. Agree with above note. Patient seen and examined. Please refer to her notes for full details. Vital signs reviewed. Physical exam: General exam: Alert and oriented. Not in acute distress.Left facial droop seen CVS: S1 and S2 heard, regular rate and rhythm, no murmurs. RS: Clear to auscultation, no wheezing or crackles. ABD: Soft, bowel sounds present, nontender, no distention. COLLECTIONS ASSISTANT: Nonfocal. EXT: No edema, no erythema. Labs: Reviewed. Assessment and plan: 70M presents with memory issues and left facial droop and found to have sub acute left parietal infarct CVA left posterior parietal lobesub acute infract Patient already on aspirin, eliquis and stain follow mri. echo speech neuro consult in a, pt/ot HTN will hold amlodipine for permissive htn. Other diagnosis and plan of care as per Colleen Hernandez PA-C . Andrew davis MD. (1) Hypertension Hypertension type: primary hypertension Qualified Code(s): I10 - Essential (primary) hypertension (2) Stroke CVA mechanism: unspecified Qualified Code(s): I63.9 - Cerebral infarction, unspecified
[2021-06-27] MEDS ORDERED: GLUCAGON FOR INJ 1 MG VIAL SQ PRN (21:35)
[2021-06-27] MEDS ORDERED: GLUCOSE 40% GEL 15 GM TUBE PO PRN (21:35)
[2021-06-27] MEDS ORDERED: PHARMACIST DISCHARGE MED REC CONSULT PRN (21:35)
[2021-06-27] MEDS ORDERED: CARBOHYDRATES FOR HYPOGLYCEMIA PO PRN (21:35)
[2021-06-27] MEDS ORDERED: POLYETHYLENE (MIRALAX) 17 GM PACK PO PRN (21:35)
[2021-06-27] MEDS ORDERED: ONDANSETRON INJ 2 MG/ML 2 ML VIAL IV PRN (21:35)
[2021-06-27] MEDS ORDERED: ACETAMINOPHEN 325 MG TAB PO PRN (21:35)
[2021-06-27] MEDS ORDERED: DEXTROSE 50% 50 ML SYRINGE IV PRN (21:35)
[2021-06-27] MEDS ORDERED: GLUCOSE 10 TABS/TUBE PO PRN (21:35)
[2021-06-27] MEDS ORDERED: INSULIN ASPART 100 UNITS/ML 3 ML PEN SC SCH ×2 (22:00)
[2021-06-27] MEDS ORDERED: hydrALAZINE HCL 20 MG/ML VIAL IV PRN (22:15)
[2021-06-27] MEDS: GABAPENTIN 300 MG CAP PO SCH (22:19)
[2021-06-27] MEDS: TAMSULOSIN HCL 0.4 MG CAP PO SCH (22:19)
[2021-06-27] MEDS: FINASTERIDE 5 MG TAB PO SCH (22:19)
[2021-06-27] MEDS: APIXABAN 5 MG TABLET PO SCH (22:20)
[2021-06-27] MEDS: ATORVASTATIN 40 MG TAB PO SCH (22:20)
[2021-06-27] MEDS ORDERED: GADOBUTROL 65ML VIAL IV ONE (23:10)
[2021-06-28] MEDS ORDERED: Nursing to Pharmacy Communication SCH (03:15)
[2021-06-28] MEDS: SODIUM CHLORIDE 0.9% 1000ML 1,000 ML IV SCH ×2 (03:17→13:34)
[2021-06-28 04:20] LABS: Hematocrit (blood only) 32.6 % (42-52); Hemoglobin 10.9 g/dL (14.0-18.0); Mean Corpuscular Hemoglobin 30.9 pg (25-34); Mean Corpuscular Hgb Conc 33.4 g/dL (32-36); Mean Corpuscular Volume 92.4 fL (80-100); Mean Platelet Volume 9.2 fL (7.4-10.4); Platelet Count 128 K/uL (130-400); RDW Coefficient of Variation 15.1 % (11.5-14.5); RDW Standard Deviation 51.2 fL (36.4-46.3); Red Blood Count 3.53 M/uL (4.7-6.1); White Blood Count 6.89 K/uL (4.8-10.8)
[2021-06-28 04:42] LABS: BUN Creatinine Ratio 19.8 (10-20); Calcium 8.8 mg/dl (8.5-10.1); Creatinine Clr Calc Pharmacy 65.6 ml/min; Est GFR (African American) 81.8 ml/min; Est GFR (Non-African American) 70.6 ml/min; Potassium 4.1 mmol/L (3.5-5.1)
[2021-06-28 07:33] LABS: Estimated Average Glucose 123 mg/dl; Hemoglobin A1C 5.9 % (4.5-5.6)
--- NOTE | 2021-06-28 08:16 | Hospitalist Progress Note ---
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 Acute left parietal infarct Acute memory impairment, noted to have L facial droop in clinic yesterday and sent to ED CT head with loss of deras-white matter differentiation in the high left posterior parietal lobe consistent with a subacute infarct. This is new from prior studies Patient states he has been compliant with Eliquis BID and baby aspirin daily Facial droop has mostly resolved. Still feels cognition is slower than baseline and has difficulty expressing himself (expressive aphasia) Given aspirin 324mg in ED. Continue aspirin, Eliquis BID, statin Brain MRI IMPRESSION: 1. 4.1 x 1.6 cm acute infarct within left frontal lobe. No mass effect. No acute hemorrhage. 2. Old right frontal lobe infarct. Echo- Compared to prior study, there is no significant change. LV is normal in size. LV systolic function is normal. EF 60 to 65%. RV systolic function is normal. LA size is normal. RA size is normal. Injection of contrast documented no interatrial shunt. The interatrial septum is intact with no evidence for ASD. Aortic valve sclerosis moderate, without significant aortic valvular stenosis. There is mild to moderate mitral regurg. There is no tricuspid regurg. Grade 1 diastolic dysfunction. PT/OT/speech evaluations - pt is ambulatory but will need extensive speech therapy as outpt Neurology consulted - discussed the case with neuro vasc. in [place] - recommend to continue ASA and Eliquis as previously (no change to coumadin) - pt will need to follow up with neurology as outpt in 2-3 weeks Troponin elevation Trop elevation of 0.474 initially No chest pain, no acute ST changes on EKG, no history of CAD troponin unchanged, echo unremarkable, as above, monitor on telemetry Lactic acid elevation Mildly elevated at 2.1, likely due to home metformin use Received IV fluids in ED, repeat lactate History of DVT In 1980s and 1990s. Previously on coumadin and currently on Eliquis HTN Plan to hold morning amlodipine dose to allow for permissive HTN in setting of cva Diabetes mellitus, type 2 A1c 5.1 in Apr 2021 Hold home agents SSI while in-patient BSG AC HS BPH Continue home Flomax, Proscar DVT Ppx: Eliquis Code status: FULL PCP: Dr. Patrick Dispo: Admitted to PCU Admission and Anticipated Discharge Date Admission Date: June 27, 2021 Subjective Pt seen in follow up of CVA Currently sitting up in chair in NAD Seen by speech and neurology at the bedside during my eval Pt will need extensive speech therapy after DC - will notify CM Pt reports difficulty expressing himself - word finding difficulty Otherwise no headache, no chest pain, no shortness of breath, dizziness or lightheadedness He is ambulating, seen by PT Per neurology - cont. ASA and Eliquis as before Review of Systems Review of Systems: All systems reviewed & are unremarkable except as noted in Subjective Physical Exam Physical Exam: General Appearance:WD/WN, M in NAD Head: normocephalic, atraumatic Eyes:normal inspection, PERRL, EOMI, conjunctivae normal, anicteric sclerae ENT: external ear and nose normal, oropharynx normal Neck: normal visual inspection, trachea midline Respiratory:normal respiratory effort, lungs clear to auscultation, no wheeze, rales, rhonchi. No accessory muscle use Cardiovascular: regular rate, rhythm, no murmur, normal peripheral pulses, no BLE edema. Vessels: no JVD Chest: normal inspection of chest Abdomen/GI: normal bowel sounds, soft, nontender Extremities/Musculoskeletal:extremities motor strength 5/5 Neurologic: PERRL, EOMI, mild left facial droop (seems improved from initial presentation), speech slow, moves all extremities Psychiatric:A+Ox3, euthymic affect Skin: no rashes, warm/dry Results & Data Results & Data ([facility]) Vital Signs (Past 12 Hours) Vital Signs Temp Pulse Pulse Pulse Resp BP BP 06/28/21 07:06 36.5 C 62 18 137/82 06/28/21 02:21 36.5 C 82 14 123/79 06/27/21 23:59 58 L 06/27/21 23:27 36.5 C 63 22 158/83 H 06/27/21 21:44 36.7 C 57 L 17 176/83 H 06/27/21 21:35 36.4 C L 58 L 14 179/93 H 06/27/21 21:00 60 14 128/71 06/27/21 20:30 56 L 12 150/83 H Pulse Ox Pulse Ox 06/28/21 07:06 98 06/28/21 02:21 97 06/27/21 23:59 06/27/21 23:27 100 06/27/21 21:44 06/27/21 21:35 97 97 06/27/21 21:00 98 06/27/21 20:30 97 Laboratory Results 06/28/21 06/28/21 06/28/21 Range/Units 04:04 04:04 04:04 WBC 6.89 (4.8-10.8) K/uL RBC 3.53 L (4.7-6.1) M/uL Hgb 10.9 L (14.0-18.0) g/dL Hct 32.6 L (42-52) % MCV 92.4 (80-100) fL MCH 30.9 (25-34) pg MCHC 33.4 (32-36) g/dL RDW Std Deviation 51.2 H (36.4-46.3) fL RDW Coeff of Aranza 15.1 H (11.5-14.5) % Plt Count 128 L (130-400) K/uL MPV 9.2 (7.4-10.4) fL Immature Gran % (Auto) % Neut % (Auto) % Lymph % (Auto) % Millard % (Auto) % Eos % (Auto) % Baso % (Auto) % Neut # (Auto) (1.4-6.5) K/uL Lymph # (Auto) (1.2-3.4) K/uL Millard # (Auto) (0.11-0.59) K/uL Eos # (Auto) (0-0.5) K/uL Baso # (Auto) (0-0.2) K/uL Immature Gran # (Auto) (0.00-0.02) K/uL PT (9.0-12.0) Seconds INR (0.9-1.1) APTT (21.0-31.0) Seconds PTT Ratio Sodium 139 (136-145) mmol/L Potassium 4.1 (3.5-5.1) mmol/L Chloride 107 (98-107) mmol/L Carbon Dioxide 29 (21-32) mmol/L Anion Gap 3.0 (3-11) BUN 21 H (7-18) mg/dl Creatinine 1.05 (0.6-1.4) mg/dl Est Cr Clr Drug Dosing 65.6 Est GFR ( Amer) 81.8 ml/min Est GFR (Non-Af Amer) 70.6 ml/min BUN/Creatinine Ratio 19.8 (10-20) Glucose 142 H (70-99) mg/dl POC Glucose (70-99) mg/dl Estimat Average Glucose 123 mg/dl Hemoglobin A1c 5.9 H (4.5-5.6) % Lactate (0.4-2.0) mmol/L Calcium 8.8 (8.5-10.1) mg/dl Magnesium (1.8-2.4) mg/dl Total Bilirubin (0.2-1) mg/dl AST (15-37) U/L ALT (12-78) U/L Alkaline Phosphatase (45-117) U/L Ammonia (11-32) umol/L Troponin I (0-0.045) ng/ml Total Protein (6.4-8.2) gm/dl Albumin (3.4-5.0) gm/dl Globulin (2.5-4.0) gm/dl Albumin/Globulin Ratio (0.9-2) Triglycerides 175 H (0-150) mg/dl Cholesterol 109 (0-200) mg/dl LDL Cholesterol, Calc 29 mg/dl VLDL Cholesterol, Calc 35 mg/dl HDL Cholesterol 45 mg/dl Cholesterol/HDL Ratio 2 Urine Color Urine Appearance (Clear) Urine pH (4.5-7.5) Ur Specific [place] (1.000-1.030) Urine Protein (Negative) Urine Glucose (UA) (Negative) Urine Ketones (Negative) Urine Blood (Negative) Urine Nitrite (Negative) Urine Bilirubin (Negative) Urine Urobilinogen (Negative) Ur Leukocyte Esterase (Negative) Urine WBC (Auto) (0-5) /hpf Urine RBC (Auto) (0-4) /hpf U Hyaline Cast (Auto) (0-5) /lpf U Epithel Cells (Auto) (0-5) /lpf Urine Bacteria (Auto) (Negative) Urine Opiates Screen (Neg) Ur Methadone, Qual (Neg) Urine Barbiturates (Neg) Ur Phencyclidine (PCP) (Neg) U Amphetamin/Meth Scrn (Neg) MDMA (Ecstasy) Screen (Neg) U Benzodiazepines Scrn (Neg) Ur Cocaine Metabolite (Neg) U Marijuana (THC) Screen (Neg) Ethyl Alcohol mg/dL (0-3) mg/dl SARS-CoV-2, RNA, NAAT (NEGATIVE) Blood Type Antibody Screen 06/28/21 06/28/21 06/27/21 Range/Units 04:04 02:24 21:49 WBC (4.8-10.8) K/uL RBC (4.7-6.1) M/uL Hgb (14.0-18.0) g/dL Hct (42-52) % MCV (80-100) fL MCH (25-34) pg MCHC (32-36) g/dL RDW Std Deviation (36.4-46.3) fL RDW Coeff of Aranza (11.5-14.5) % Plt Count (130-400) K/uL MPV (7.4-10.4) fL Immature Gran % (Auto) % Neut % (Auto) % Lymph % (Auto) % Millard % (Auto) % Eos % (Auto) % Baso % (Auto) % Neut # (Auto) (1.4-6.5) K/uL Lymph # (Auto) (1.2-3.4) K/uL Millard # (Auto) (0.11-0.59) K/uL Eos # (Auto) (0-0.5) K/uL Baso # (Auto) (0-0.2) K/uL Immature Gran # (Auto) (0.00-0.02) K/uL PT (9.0-12.0) Seconds INR (0.9-1.1) APTT (21.0-31.0) Seconds PTT Ratio Sodium (136-145) mmol/L Potassium (3.5-5.1) mmol/L Chloride (98-107) mmol/L Carbon Dioxide (21-32) mmol/L Anion Gap (3-11) BUN (7-18) mg/dl Creatinine (0.6-1.4) mg/dl Est Cr Clr Drug Dosing Est GFR ( Amer) ml/min Est GFR (Non-Af Amer) ml/min BUN/Creatinine Ratio (10-20) Glucose (70-99) mg/dl POC Glucose 127 H (70-99) mg/dl Estimat Average Glucose mg/dl Hemoglobin A1c (4.5-5.6) % Lactate (0.4-2.0) mmol/L Calcium (8.5-10.1) mg/dl Magnesium (1.8-2.4) mg/dl Total Bilirubin (0.2-1) mg/dl AST (15-37) U/L ALT (12-78) U/L Alkaline Phosphatase (45-117) U/L Ammonia (11-32) umol/L Troponin I 0.423 H* 0.462 H* (0-0.045) ng/ml Total Protein (6.4-8.2) gm/dl Albumin (3.4-5.0) gm/dl Globulin (2.5-4.0) gm/dl Albumin/Globulin Ratio (0.9-2) Triglycerides (0-150) mg/dl Cholesterol (0-200) mg/dl LDL Cholesterol, Calc mg/dl VLDL Cholesterol, Calc mg/dl HDL Cholesterol mg/dl Cholesterol/HDL Ratio Urine Color Urine Appearance (Clear) Urine pH (4.5-7.5) Ur Specific [place] (1.000-1.030) Urine Protein (Negative) Urine Glucose (UA) (Negative) Urine Ketones (Negative) Urine Blood (Negative) Urine Nitrite (Negative) Urine Bilirubin (Negative) Urine Urobilinogen (Negative) Ur Leukocyte Esterase (Negative) Urine WBC (Auto) (0-5) /hpf Urine RBC (Auto) (0-4) /hpf U Hyaline Cast (Auto) (0-5) /lpf U Epithel Cells (Auto) (0-5) /lpf Urine Bacteria (Auto) (Negative) Urine Opiates Screen (Neg) Ur Methadone, Qual (Neg) Urine Barbiturates (Neg) Ur Phencyclidine (PCP) (Neg) U Amphetamin/Meth Scrn (Neg) MDMA (Ecstasy) Screen (Neg) U Benzodiazepines Scrn (Neg) Ur Cocaine Metabolite (Neg) U Marijuana (THC) Screen (Neg) Ethyl Alcohol mg/dL (0-3) mg/dl SARS-CoV-2, RNA, NAAT (NEGATIVE) Blood Type Antibody Screen 06/27/21 06/27/21 06/27/21 Range/Units 21:49 21:42 19:50 WBC (4.8-10.8) K/uL RBC (4.7-6.1) M/uL Hgb (14.0-18.0) g/dL Hct (42-52) % MCV (80-100) fL MCH (25-34) pg MCHC (32-36) g/dL RDW Std Deviation (36.4-46.3) fL RDW Coeff of Aranza (11.5-14.5) % Plt Count (130-400) K/uL MPV (7.4-10.4) fL Immature Gran % (Auto) % Neut % (Auto) % Lymph % (Auto) % Millard % (Auto) % Eos % (Auto) % Baso % (Auto) % Neut # (Auto) (1.4-6.5) K/uL Lymph # (Auto) (1.2-3.4) K/uL [place] # (Auto) (0.11-0.59) K/uL Eos # (Auto) (0-0.5) K/uL Baso # (Auto) (0-0.2) K/uL Immature Gran # (Auto) (0.00-0.02) K/uL PT (9.0-12.0) Seconds INR (0.9-1.1) APTT (21.0-31.0) Seconds PTT Ratio Sodium (136-145) mmol/L Potassium (3.5-5.1) mmol/L Chloride (98-107) mmol/L Carbon Dioxide (21-32) mmol/L Anion Gap (3-11) BUN (7-18) mg/dl Creatinine (0.6-1.4) mg/dl Est Cr Clr Drug Dosing Est GFR ( Amer) ml/min Est GFR (Non-Af Amer) ml/min BUN/Creatinine Ratio (10-20) Glucose (70-99) mg/dl POC Glucose 107 H (70-99) mg/dl Estimat Average Glucose mg/dl Hemoglobin A1c (4.5-5.6) % Lactate 1.1 (0.4-2.0) mmol/L Calcium (8.5-10.1) mg/dl Magnesium (1.8-2.4) mg/dl Total Bilirubin (0.2-1) mg/dl AST (15-37) U/L ALT (12-78) U/L Alkaline Phosphatase (45-117) U/L Ammonia (11-32) umol/L Troponin I (0-0.045) ng/ml Total Protein (6.4-8.2) gm/dl Albumin (3.4-5.0) gm/dl Globulin (2.5-4.0) gm/dl Albumin/Globulin Ratio (0.9-2) Triglycerides (0-150) mg/dl Cholesterol (0-200) mg/dl LDL Cholesterol, Calc mg/dl VLDL Cholesterol, Calc mg/dl HDL Cholesterol mg/dl Cholesterol/HDL Ratio Urine Color Urine Appearance (Clear) Urine pH (4.5-7.5) Ur Specific [place] (1.000-1.030) Urine Protein (Negative) Urine Glucose (UA) (Negative) Urine Ketones (Negative) Urine Blood (Negative) Urine Nitrite (Negative) Urine Bilirubin (Negative) Urine Urobilinogen (Negative) Ur Leukocyte Esterase (Negative) Urine WBC (Auto) (0-5) /hpf Urine RBC (Auto) (0-4) /hpf U Hyaline Cast (Auto) (0-5) /lpf U Epithel Cells (Auto) (0-5) /lpf Urine Bacteria (Auto) (Negative) Urine Opiates Screen (Neg) Ur Methadone, Qual (Neg) Urine Barbiturates (Neg) Ur Phencyclidine (PCP) (Neg) U Amphetamin/Meth Scrn (Neg) MDMA (Ecstasy) Screen (Neg) U Benzodiazepines Scrn (Neg) Ur Cocaine Metabolite (Neg) U Marijuana (THC) Screen (Neg) Ethyl Alcohol mg/dL (0-3) mg/dl SARS-CoV-2, RNA, NAAT NEGATIVE (NEGATIVE) Blood Type Antibody Screen 06/27/21 06/27/21 06/27/21 Range/Units 17:30 17:30 15:44 WBC (4.8-10.8) K/uL RBC (4.7-6.1) M/uL Hgb (14.0-18.0) g/dL Hct (42-52) % MCV (80-100) fL MCH (25-34) pg MCHC (32-36) g/dL RDW Std Deviation (36.4-46.3) fL RDW Coeff of Aranza (11.5-14.5) % Plt Count (130-400) K/uL MPV (7.4-10.4) fL Immature Gran % (Auto) % Neut % (Auto) % Lymph % (Auto) % [place] % (Auto) % Eos % (Auto) % Baso % (Auto) % Neut # (Auto) (1.4-6.5) K/uL Lymph # (Auto) (1.2-3.4) K/uL [place] # (Auto) (0.11-0.59) K/uL Eos # (Auto) (0-0.5) K/uL Baso # (Auto) (0-0.2) K/uL Immature Gran # (Auto) (0.00-0.02) K/uL PT (9.0-12.0) Seconds INR (0.9-1.1) APTT (21.0-31.0) Seconds PTT Ratio Sodium (136-145) mmol/L Potassium (3.5-5.1) mmol/L Chloride (98-107) mmol/L Carbon Dioxide (21-32) mmol/L Anion Gap (3-11) BUN (7-18) mg/dl Creatinine (0.6-1.4) mg/dl Est Cr Clr Drug Dosing Est GFR ( Amer) ml/min Est GFR (Non-Af Amer) ml/min BUN/Creatinine Ratio (10-20) Glucose (70-99) mg/dl POC Glucose (70-99) mg/dl Estimat Average Glucose mg/dl Hemoglobin A1c (4.5-5.6) % Lactate (0.4-2.0) mmol/L Calcium (8.5-10.1) mg/dl Magnesium (1.8-2.4) mg/dl Total Bilirubin (0.2-1) mg/dl AST (15-37) U/L ALT (12-78) U/L Alkaline Phosphatase (45-117) U/L Ammonia (11-32) umol/L Troponin I (0-0.045) ng/ml Total Protein (6.4-8.2) gm/dl Albumin (3.4-5.0) gm/dl Globulin (2.5-4.0) gm/dl Albumin/Globulin Ratio (0.9-2) Triglycerides (0-150) mg/dl Cholesterol (0-200) mg/dl LDL Cholesterol, Calc mg/dl VLDL Cholesterol, Calc mg/dl HDL Cholesterol mg/dl Cholesterol/HDL Ratio Urine Color Yellow Urine Appearance Clear (Clear) Urine pH 7.0 (4.5-7.5) Ur Specific [place] 1.007 (1.000-1.030) Urine Protein 1+ H (Negative) Urine Glucose (UA) Negative (Negative) Urine Ketones Negative (Negative) Urine Blood 3+ H (Negative) Urine Nitrite Negative (Negative) Urine Bilirubin Negative (Negative) Urine Urobilinogen Negative (Negative) Ur Leukocyte Esterase Trace H (Negative) Urine WBC (Auto) 5-10 H (0-5) /hpf Urine RBC (Auto) >30 H (0-4) /hpf U Hyaline Cast (Auto) 1-5 (0-5) /lpf U Epithel Cells (Auto) 0-5 (0-5) /lpf Urine Bacteria (Auto) Negative (Negative) Urine Opiates Screen Neg (Neg) Ur Methadone, Qual Neg (Neg) Urine Barbiturates Neg (Neg) Ur Phencyclidine (PCP) Neg (Neg) U Amphetamin/Meth Scrn Neg (Neg) MDMA (Ecstasy) Screen Neg (Neg) U Benzodiazepines Scrn Neg (Neg) Ur Cocaine Metabolite Neg (Neg) U Marijuana (THC) Screen Neg (Neg) Ethyl Alcohol mg/dL < 3.0 (0-3) mg/dl SARS-CoV-2, RNA, NAAT (NEGATIVE) Blood Type Antibody Screen 06/27/21 06/27/21 06/27/21 Range/Units 15:44 15:44 15:44 WBC (4.8-10.8) K/uL RBC (4.7-6.1) M/uL Hgb (14.0-18.0) g/dL Hct (42-52) % MCV (80-100) fL MCH (25-34) pg MCHC (32-36) g/dL RDW Std Deviation (36.4-46.3) fL RDW Coeff of Aranza (11.5-14.5) % Plt Count (130-400) K/uL MPV (7.4-10.4) fL Immature Gran % (Auto) % Neut % (Auto) % Lymph % (Auto) % [place] % (Auto) % Eos % (Auto) % Baso % (Auto) % Neut # (Auto) (1.4-6.5) K/uL Lymph # (Auto) (1.2-3.4) K/uL [place] # (Auto) (0.11-0.59) K/uL Eos # (Auto) (0-0.5) K/uL Baso # (Auto) (0-0.2) K/uL Immature Gran # (Auto) (0.00-0.02) K/uL PT 10.7 (9.0-12.0) Seconds INR 1.1 (0.9-1.1) APTT 32.0 H (21.0-31.0) Seconds PTT Ratio 1.2 Sodium 138 (136-145) mmol/L Potassium 4.5 (3.5-5.1) mmol/L Chloride 106 (98-107) mmol/L Carbon Dioxide 29 (21-32) mmol/L Anion Gap 3.0 (3-11) BUN 22 H (7-18) mg/dl Creatinine 1.12 (0.6-1.4) mg/dl Est Cr Clr Drug Dosing Not Reportable Est GFR ( Amer) 75.7 ml/min Est GFR (Non-Af Amer) 65.3 ml/min BUN/Creatinine Ratio 19.7 (10-20) Glucose 114 H (70-99) mg/dl POC Glucose (70-99) mg/dl Estimat Average Glucose mg/dl Hemoglobin A1c (4.5-5.6) % Lactate (0.4-2.0) mmol/L Calcium 9.2 (8.5-10.1) mg/dl Magnesium 2.0 (1.8-2.4) mg/dl Total Bilirubin 0.4 (0.2-1) mg/dl AST 25 (15-37) U/L ALT 27 (12-78) U/L Alkaline Phosphatase 96 (45-117) U/L Ammonia 10.0 L (11-32) umol/L Troponin I 0.474 H* (0-0.045) ng/ml Total Protein 7.0 (6.4-8.2) gm/dl Albumin 3.6 (3.4-5.0) gm/dl Globulin 3.4 (2.5-4.0) gm/dl Albumin/Globulin Ratio 1.1 (0.9-2) Triglycerides (0-150) mg/dl Cholesterol (0-200) mg/dl LDL Cholesterol, Calc mg/dl VLDL Cholesterol, Calc mg/dl HDL Cholesterol mg/dl Cholesterol/HDL Ratio Urine Color Urine Appearance (Clear) Urine pH (4.5-7.5) Ur Specific [place] (1.000-1.030) Urine Protein (Negative) Urine Glucose (UA) (Negative) Urine Ketones (Negative) Urine Blood (Negative) Urine Nitrite (Negative) Urine Bilirubin (Negative) Urine Urobilinogen (Negative) Ur Leukocyte Esterase (Negative) Urine WBC (Auto) (0-5) /hpf Urine RBC (Auto) (0-4) /hpf U Hyaline Cast (Auto) (0-5) /lpf U Epithel Cells (Auto) (0-5) /lpf Urine Bacteria (Auto) (Negative) Urine Opiates Screen (Neg) Ur Methadone, Qual (Neg) Urine Barbiturates (Neg) Ur Phencyclidine (PCP) (Neg) U Amphetamin/Meth Scrn (Neg) MDMA (Ecstasy) Screen (Neg) U Benzodiazepines Scrn (Neg) Ur Cocaine Metabolite (Neg) U Marijuana (THC) Screen (Neg) Ethyl Alcohol mg/dL (0-3) mg/dl SARS-CoV-2, RNA, NAAT (NEGATIVE) Blood Type Antibody Screen 06/27/21 06/27/21 06/27/21 Range/Units 15:44 15:44 15:44 WBC 7.09 (4.8-10.8) K/uL RBC 3.65 L (4.7-6.1) M/uL Hgb 11.0 L (14.0-18.0) g/dL Hct 33.8 L (42-52) % MCV 92.6 (80-100) fL MCH 30.1 (25-34) pg MCHC 32.5 (32-36) g/dL RDW Std Deviation 51.8 H (36.4-46.3) fL RDW Coeff of Aranza 15.1 H (11.5-14.5) % Plt Count 172 (130-400) K/uL MPV 9.5 (7.4-10.4) fL Immature Gran % (Auto) 0.8 % Neut % (Auto) 68.2 % Lymph % (Auto) 21.4 % [place] % (Auto) 6.6 % Eos % (Auto) 2.3 % Baso % (Auto) 0.7 % Neut # (Auto) 4.83 (1.4-6.5) K/uL Lymph # (Auto) 1.52 (1.2-3.4) K/uL [place] # (Auto) 0.47 (0.11-0.59) K/uL Eos # (Auto) 0.16 (0-0.5) K/uL Baso # (Auto) 0.05 (0-0.2) K/uL Immature Gran # (Auto) 0.06 H (0.00-0.02) K/uL PT (9.0-12.0) Seconds INR (0.9-1.1) APTT (21.0-31.0) Seconds PTT Ratio Sodium (136-145) mmol/L Potassium (3.5-5.1) mmol/L Chloride (98-107) mmol/L Carbon Dioxide (21-32) mmol/L Anion Gap (3-11) BUN (7-18) mg/dl Creatinine (0.6-1.4) mg/dl Est Cr Clr Drug Dosing Est GFR ( Amer) ml/min Est GFR (Non-Af Amer) ml/min BUN/Creatinine Ratio (10-20) Glucose (70-99) mg/dl POC Glucose (70-99) mg/dl Estimat Average Glucose mg/dl Hemoglobin A1c (4.5-5.6) % Lactate 2.1 H* (0.4-2.0) mmol/L Calcium (8.5-10.1) mg/dl Magnesium (1.8-2.4) mg/dl Total Bilirubin (0.2-1) mg/dl AST (15-37) U/L ALT (12-78) U/L Alkaline Phosphatase (45-117) U/L Ammonia (11-32) umol/L Troponin I (0-0.045) ng/ml Total Protein (6.4-8.2) gm/dl Albumin (3.4-5.0) gm/dl Globulin (2.5-4.0) gm/dl Albumin/Globulin Ratio (0.9-2) Triglycerides (0-150) mg/dl Cholesterol (0-200) mg/dl LDL Cholesterol, Calc mg/dl VLDL Cholesterol, Calc mg/dl HDL Cholesterol mg/dl Cholesterol/HDL Ratio Urine Color Urine Appearance (Clear) Urine pH (4.5-7.5) Ur Specific [place] (1.000-1.030) Urine Protein (Negative) Urine Glucose (UA) (Negative) Urine Ketones (Negative) Urine Blood (Negative) Urine Nitrite (Negative) Urine Bilirubin (Negative) Urine Urobilinogen (Negative) Ur Leukocyte Esterase (Negative) Urine WBC (Auto) (0-5) /hpf Urine RBC (Auto) (0-4) /hpf U Hyaline Cast (Auto) (0-5) /lpf U Epithel Cells (Auto) (0-5) /lpf Urine Bacteria (Auto) (Negative) Urine Opiates Screen (Neg) Ur Methadone, Qual (Neg) Urine Barbiturates (Neg) Ur Phencyclidine (PCP) (Neg) U Amphetamin/Meth Scrn (Neg) MDMA (Ecstasy) Screen (Neg) U Benzodiazepines Scrn (Neg) Ur Cocaine Metabolite (Neg) U Marijuana (THC) Screen (Neg) Ethyl Alcohol mg/dL (0-3) mg/dl SARS-CoV-2, RNA, NAAT (NEGATIVE) Blood Type O Positive Antibody Screen NEGATIVE Medications Administered Current Inpatient Medications Acetaminophen (Acetaminophen 325 Mg Tab) 650 mg PO Q4H PRN PRN Reason: Pain or Fever Stop: 07/27/21 21:34 Apixaban (Apixaban 5 Mg Tablet) 5 mg PO BID WILMER Stop: 07/27/21 21:34 Last Admin: 06/27/21 22:20 Dose: 5 mg Documented by: Aspirin (Aspirin 81 Mg Ectab) 81 mg PO QAM WILMER Stop: 07/28/21 08:59 Atorvastatin Calcium (Atorvastatin 40 Mg Tab) 40 mg PO HS WILMER Stop: 07/27/21 21:34 Last Admin: 06/27/21 22:20 Dose: 40 mg Documented by: Dextrose (Dextrose 50% 50 Ml Syringe) 25 - 50 ml IV UD PRN; Protocol PRN Reason: Hypoglycemia Protocol Stop: 07/27/21 21:34 Ferrous Sulfate (Ferrous Sulfate 325 Mg Tab) 325 mg PO QAM [facility] Stop: 07/28/21 08:59 Finasteride (Finasteride 5 Mg Tab) 5 mg PO HS [facility] Stop: 07/27/21 21:34 Last Admin: 06/27/21 22:19 Dose: 5 mg Documented by: Gabapentin (Gabapentin 300 Mg Cap) 300 mg PO QID [facility] Stop: 07/27/21 21:34 Last Admin: 06/27/21 22:19 Dose: 300 mg Documented by: Glucagon (Glucagon For Inj 1 Mg Vial) 1 mg SQ UD PRN; Protocol PRN Reason: Hypoglycemia Protocol Stop: 07/27/21 21:34 Glucose (Glucose 10 Tabs/Tube) 4 - 8 tabs PO UD PRN; Protocol PRN Reason: Hypoglycemia Protocol Stop: 07/27/21 21:34 Glucose (Glucose 40% Gel 15 Gm Tube) 15 - 30 gm PO UD PRN; Protocol PRN Reason: Hypoglycemia Protocol Stop: 07/27/21 21:34 Hydralazine HCl (Hydralazine Hcl 20 Mg/Ml Vial) 7.5 mg IV Q6H PRN PRN Reason: Hypertension Stop: 07/27/21 22:14 Sodium Chloride (Nss 1000ml) 1,000 mls @ 100 mls/hr IV .Q10H [facility] Stop: 06/28/21 22:29 Last Admin: 06/28/21 03:17 Dose: 100 mls/hr Documented by: Insulin Aspart (Insulin Aspart 100 Units/Ml 3 Ml Pen) 0 units SC ACHS [facility] Stop: 07/27/21 21:59 Miscellaneous (Carbohydrates For Hypoglycemia ) 15 - 30 gm PO UD PRN PRN Reason: Hypoglycemia Protocol Stop: 07/27/21 21:34 Miscellaneous Information (Pharmacist Discharge Med Rec Consult) 1 ea N/A UD PRN PRN Reason: Consult Stop: 07/27/21 21:34 Ondansetron HCl (Ondansetron Inj 2 Mg/Ml 2 Ml Vial) 4 mg IV Q6H PRN PRN Reason: Nausea Stop: 07/27/21 21:34 Polyethylene Glycol (Polyethylene (Miralax) 17 Gm Pack) 17 gm PO DAILY PRN PRN Reason: Constipation Stop: 07/27/21 21:34 Tamsulosin HCl (Tamsulosin Hcl 0.4 Mg Cap) 0.4 mg PO HS [facility] Stop: 07/27/21 21:34 Last Admin: 06/27/21 22:19 Dose: 0.4 mg Documented by: (1) Hypertension Hypertension type: primary hypertension Qualified Code(s): I10 - Essential (primary) hypertension (2) Stroke CVA mechanism: unspecified Qualified Code(s): I63.9 - Cerebral infarction, unspecified
[2021-06-28] MEDS: FERROUS SULFATE 325 MG TAB PO SCH (08:57)
[2021-06-28] MEDS: GABAPENTIN 300 MG CAP PO SCH ×4 (08:57→20:53)
[2021-06-28] MEDS: APIXABAN 5 MG TABLET PO SCH ×2 (08:57→20:53)
[2021-06-28] MEDS: ASPIRIN 81 MG ECTAB PO SCH (08:57)
[2021-06-28] MEDS: INSULIN ASPART 100 UNITS/ML 3 ML PEN SC SCH ×4 (08:59→20:33)
--- NOTE | 2021-06-28 09:43 | Magnetic Resonance Report ---
MRI OF THE BRAIN WITHOUT AND WITH IV CONTRAST CLINICAL HISTORY: Subacute cerebrovascular accident. COMPARISON STUDY: MRI of the brain January 27, 2021. Head CT and CTA of the head June 27, 2021. TECHNIQUE: Utilizing a 1.5 Laine magnet and dedicated coil, multiplanar, multiecho imaging of the br ain was performed pre and postcontrast administration. IV administration of 7.5 mL of Gadavist contr ast was uneventful. FINDINGS: There is a 4.1 x 1.6 cm focus of restricted diffusion within the left parietal lobe. There is no significant mass effect. There is no acute hemorrhage. This represents an acute infarct. There has been expected evolution of the right frontal lobe infarct since MRI of January 27, 2021. Ventricular system is normal. Basal cisterns are patent. There are no extra-axial collections. Flow-voids for the major intracranial vessels are present. There is no intracranial mass or pathologic enhancement. Maury varial signal is normal. A small amount of fluid within the bilateral mastoid air cells is noted. Mil d atrophy is present. IMPRESSION: 1. 4.1 x 1.6 cm acute infarct within left frontal lobe. No mass effect. No acute hemorrhage. 2. Old right frontal lobe infarct. ACT 112: Negative or not required by law. Electronically signed by: Myron Barrientos M.D. 06/28/2021 9:42 AM
--- NOTE | 2021-06-28 11:59 | Neurology Consultation ---
Date of Consultation June 28, 2021 Assessment & Plan (1) CVA (cerebral vascular accident): 1. MRI with left parietal lobe infarct 2. continue Eliquis 5 mg BID and aspirin 81 mg daily 3. optimize HTN HLD, DM LDL <70 4. PT/OT speech for discharge needs 5. ZIO as outpatient follow with neurology 4-6 weeks Tricia JADE (2) History of stroke: Supervising Physician Co-Signing Physician Notes Patient was seen and examined this afternoon. He is sitting up right in chair. Continues to have mild aphasia with MRI brain showing acute left MCA ischemic stroke which appears embolic. History of DVT on Eliquis. Reports compliance. Also on ASA. No known PAF. Previously on Coumadin but switched to NOAC due to labile INR. Discussed with vascular neurology staff at [facility]. Recommend to continue home Eliquis and ASA. Speech therapy as outpatient. Follow up with Neurology in 2-3 months. Please call with any additional questions or concerns. History of Present Illness Reason for Consultation: subacute cva Requesting Physician: Uche Denson MD Attending Physician: Uche Denson MD History of Present Illness Neo is a 70 year old male with PMH frontal lobe CVA on Eliquis, DM II, recurrent DVT, BPH who presented to [facility] ED 06/27/2021 with stroke like symptoms from [facility] with an acute memory loss. He woke up yesterday and was not able to remember names of people he knew and unable to do checkbook calculations.He also had a left facial droop aswell as aphasia and memory loss. He has a right frontal lobe infarct in January 2021 on Eliquis. Until recently has lived with friends and then transitioned back to living alone a week ago. He manages his own medications and states he has been compliant with all, including baby aspirin and twice daily Eliquis. Upon arrival to ED, facial droop had resolved and he was answering questions appropriately but still feels as though he is not interpreting or understanding what people are saying t o him at his normal speed. he is still having some expressive issues but he thinks it is getting better. he denies any one sided weakness, numbness tingling, N, V. Allergies Allergy/AdvReac Type Severity Reaction Status Date / Time No Known Allergies Allergy Verified 06/27/21 16:09 Home Medications Medication Instructions Recorded Confirmed Type finasteride 5 mg tablet (Proscar) 5 mg PO HS 01/27/21 06/27/21 History amlodipine 5 mg tablet (Norvasc) 2.5 mg PO QAM #30 tab 02/02/21 06/27/21 Rx apixaban 5 mg tablet (Eliquis) 5 mg PO BID 30 Days #60 tab 02/02/21 06/27/21 Rx metformin 1,000 mg tablet 1,000 mg PO BIDM 02/12/21 06/27/21 History aspirin 81 mg tablet,delayed 81 mg PO QAM 03/29/21 06/27/21 History release (Aspirin Low Dose) atorvastatin 40 mg tablet (Lipitor) 40 mg PO HS 03/29/21 06/27/21 History gabapentin 300 mg capsule 300 mg PO QID 03/29/21 06/27/21 History (Neurontin) tamsulosin 0.4 mg capsule (Flomax) 0.4 mg PO HS #14 cap 03/31/21 06/27/21 Rx ferrous sulfate 325 mg (65 mg 325 mg PO QAM 06/27/21 06/27/21 History iron) tablet (FeroSul) Patient History Medical History (Updated 06/27/21 @ 20:24 by Colleen Hernandez PA-C) MAGY (acute kidney injury) 02/2021- 03/2021 with continuing improving creatinine (2.02 03/31/21 > 1.51 05/03/21) Anemia hgb stable in the 's BPH (benign prostatic hypertrophy) Diabetes mellitus, type 2 NIDDM Dyslipidemia History of DVT (deep vein thrombosis) 1993- on Eliquis Kidney stones Pulmonary embolism 1993- on Eliquis Stroke 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 ischemic stroke, residual mild weakness and short- term memory impairment Surgical History H/O colonoscopy History of back surgery No hardware History of cystoscopy Cystoscopy, left retropyelogram, Left ureteral stent placement (03/30/21): LMA#4 at [facility] History of tympanoplasty of right ear Status post appendectomy Family History Uncle Family history of diabetes mellitus Other Heart disease Social History Smoking Status: Former smoker Tobacco Type: Cigarettes Second Hand Exposure: Yes (FRIEND'S SPOUSE SMOKES-STAYING AT THEIR HOUSE CURRENTLY); Hx Alcohol Use: No Hx Substance Use: No Preferred Language: Syrian Communication Ability: Effective Cafeteria Server Required: No Beliefs That Will Affect Care: None marital status: / Current Living Situation: Alone current occupation: NOT WORKING How many Children do You have: 0 Other Information That Helps Us Care for You: No Feels Safe at Home: Yes Safety Concerns: Feels Safe At This Time Assistive Devices: None Review of Systems Review of Systems: All systems reviewed & are unremarkable except as noted in HPI & below Physical Exam Physical Exam: Physical Exam: Constitutional: appearance over nourished, healthy Ears, Nose, Mouth and Throat: mucous membranes moist, no injection and skin normal, eyes normal Cardiovascular: normal S-1 and S-2 and regular rate and rhythm Respiratory: clear to auscultation (CTA) and no rales, rhonchi or wheeze Musculoskeletal: no peripheral edema and good distal pulses Skin: no stigmata of neurocutaneous disease noted and normal and intact Eyes: extraocular muscles intact (EOMI) and pupils equal, round and reactive to light (PERRL), gross peripheral vision intact NEUROLOGIC EXAMINATION: Mental status: Alert and interactive Oriented to full date and location Oriented to person Speech expressive aphasia knows month, year, [facility], can not say no ifs ands or buts, identifies pen and write with it, ring, thumb Cranial Nerves smile eye brow raise symmetric Reflexes: Deep tendon reflexes were symmetrical and graded 2/5. Sensory: light cool touch Coordination: finger to nose Gait/Stance: Posture lying in bed Motor: Negative for pronator drift of out stretched arms with eyes closed. 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, hip flex 5/5 plantar flex ext 5/5 bilaterally Results & Data ([facility]) Vital Signs (Past 12 Hours) Vital Signs Temp Pulse Pulse Pulse Resp BP Pulse Ox 06/28/21 11:39 36.5 C 65 19 135/74 99 06/28/21 10:24 75 06/28/21 07:06 36.5 C 62 18 137/82 98 06/28/21 02:21 36.5 C 82 14 123/79 97 06/27/21 23:59 58 L Laboratory Results Abnormal lab results 06/27/21 06/27/21 06/27/21 Range/Units 15:44 15:44 15:44 RBC 3.65 L (4.7-6.1) M/uL Hgb 11.0 L (14.0-18.0) g/dL Hct 33.8 L (42-52) % RDW Std Deviation 51.8 H (36.4-46.3) fL RDW Coeff of Aranza 15.1 H (11.5-14.5) % Plt Count (130-400) K/uL Immature Gran # (Auto) 0.06 H (0.00-0.02) K/uL APTT 32.0 H (21.0-31.0) Seconds BUN (7-18) mg/dl Glucose (70-99) mg/dl POC Glucose (70-99) mg/dl Hemoglobin A1c (4.5-5.6) % Lactate 2.1 H* (0.4-2.0) mmol/L Ammonia (11-32) umol/L Troponin I (0-0.045) ng/ml Triglycerides (0-150) mg/dl Urine Protein (Negative) Urine Blood (Negative) Ur Leukocyte Esterase (Negative) Urine WBC (Auto) (0-5) /hpf Urine RBC (Auto) (0-4) /hpf 06/27/21 06/27/21 06/27/21 Range/Units 15:44 15:44 17:30 RBC (4.7-6.1) M/uL Hgb (14.0-18.0) g/dL Hct (42-52) % RDW Std Deviation (36.4-46.3) fL RDW Coeff of Aranza (11.5-14.5) % Plt Count (130-400) K/uL Immature Gran # (Auto) (0.00-0.02) K/uL APTT (21.0-31.0) Seconds BUN 22 H (7-18) mg/dl Glucose 114 H (70-99) mg/dl POC Glucose (70-99) mg/dl Hemoglobin A1c (4.5-5.6) % Lactate (0.4-2.0) mmol/L Ammonia 10.0 L (11-32) umol/L Troponin I 0.474 H* (0-0.045) ng/ml Triglycerides (0-150) mg/dl Urine Protein 1+ H (Negative) Urine Blood 3+ H (Negative) Ur Leukocyte Esterase Trace H (Negative) Urine WBC (Auto) 5-10 H (0-5) /hpf Urine RBC (Auto) >30 H (0-4) /hpf 06/27/21 06/27/21 06/28/21 Range/Units 21:42 21:49 02:24 RBC (4.7-6.1) M/uL Hgb (14.0-18.0) g/dL Hct (42-52) % RDW Std Deviation (36.4-46.3) fL RDW Coeff of Aranza (11.5-14.5) % Plt Count (130-400) K/uL Immature Gran # (Auto) (0.00-0.02) K/uL APTT (21.0-31.0) Seconds BUN (7-18) mg/dl Glucose (70-99) mg/dl POC Glucose 107 H 127 H (70-99) mg/dl Hemoglobin A1c (4.5-5.6) % Lactate (0.4-2.0) mmol/L Ammonia (11-32) umol/L Troponin I 0.462 H* (0-0.045) ng/ml Triglycerides (0-150) mg/dl Urine Protein (Negative) Urine Blood (Negative) Ur Leukocyte Esterase (Negative) Urine WBC (Auto) (0-5) /hpf Urine RBC (Auto) (0-4) /hpf 06/28/21 06/28/21 06/28/21 Range/Units 04:04 04:04 04:04 RBC 3.53 L (4.7-6.1) M/uL Hgb 10.9 L (14.0-18.0) g/dL Hct 32.6 L (42-52) % RDW Std Deviation 51.2 H (36.4-46.3) fL RDW Coeff of Aranza 15.1 H (11.5-14.5) % Plt Count 128 L (130-400) K/uL Immature Gran # (Auto) (0.00-0.02) K/uL APTT (21.0-31.0) Seconds BUN 21 H (7-18) mg/dl Glucose 142 H (70-99) mg/dl POC Glucose (70-99) mg/dl Hemoglobin A1c (4.5-5.6) % Lactate (0.4-2.0) mmol/L Ammonia (11-32) umol/L Troponin I 0.423 H* (0-0.045) ng/ml Triglycerides 175 H (0-150) mg/dl Urine Protein (Negative) Urine Blood (Negative) Ur Leukocyte Esterase (Negative) Urine WBC (Auto) (0-5) /hpf Urine RBC (Auto) (0-4) /hpf 06/28/21 06/28/21 Range/Units 04:04 11:36 RBC (4.7-6.1) M/uL Hgb (14.0-18.0) g/dL Hct (42-52) % RDW Std Deviation (36.4-46.3) fL RDW Coeff of Aranza (11.5-14.5) % Plt Count (130-400) K/uL Immature Gran # (Auto) (0.00-0.02) K/uL APTT (21.0-31.0) Seconds BUN (7-18) mg/dl Glucose (70-99) mg/dl POC Glucose 145 H (70-99) mg/dl Hemoglobin A1c 5.9 H (4.5-5.6) % Lactate (0.4-2.0) mmol/L Ammonia (11-32) umol/L Troponin I (0-0.045) ng/ml Triglycerides (0-150) mg/dl Urine Protein (Negative) Urine Blood (Negative) Ur Leukocyte Esterase (Negative) Urine WBC (Auto) (0-5) /hpf Urine RBC (Auto) (0-4) /hpf Diagnostic Findings TTE-60-65% EF no ASD CT head-There is loss of deras-white matter differentiation in the high left posterior parietal lobe consistent with a subacute infarct. This is new from prior studies. There is no hemorrhage or midline shift. Unremarkable CT angiogram of the brain. Unremarkable CT angiogram of the neck. MRI brain-1. 4.1 x 1.6 cm acute infarct within left parietal lobe. No mass effect. No acute hemorrhage. Old right frontal lobe infarct. (1) CVA (cerebral vascular accident) CVA mechanism: unspecified Qualified Code(s): I63.9 - Cerebral infarction, unspecified
[2021-06-28] MEDS: FINASTERIDE 5 MG TAB PO SCH (20:53)
[2021-06-28] MEDS: ATORVASTATIN 40 MG TAB PO SCH (20:53)
[2021-06-28] MEDS: TAMSULOSIN HCL 0.4 MG CAP PO SCH (20:53)
[2021-06-29 07:59] LABS: Hematocrit (blood only) 32.1 % (42-52); Hemoglobin 10.7 g/dL (14.0-18.0); Mean Corpuscular Hemoglobin 30.6 pg (25-34); Mean Corpuscular Hgb Conc 33.3 g/dL (32-36); Mean Corpuscular Volume 91.7 fL (80-100); Platelet Count 128 K/uL (130-400); RDW Coefficient of Variation 15.1 % (11.5-14.5); RDW Standard Deviation 50.9 fL (36.4-46.3); White Blood Count 4.75 K/uL (4.8-10.8)
[2021-06-29] MEDS: GABAPENTIN 300 MG CAP PO SCH ×2 (08:12→13:23)
[2021-06-29] MEDS: ASPIRIN 81 MG ECTAB PO SCH (08:12)
[2021-06-29] MEDS: APIXABAN 5 MG TABLET PO SCH (08:12)
[2021-06-29] MEDS: FERROUS SULFATE 325 MG TAB PO SCH (08:12)
[2021-06-29] MEDS: INSULIN ASPART 100 UNITS/ML 3 ML PEN SC SCH ×2 (08:13→12:36)
[2021-06-29 08:33] LABS: BUN Creatinine Ratio 16.8 (10-20); Calcium 8.4 mg/dl (8.5-10.1); Creatinine Clr Calc Pharmacy 56.9 ml/min; Est GFR (African American) 68.9 ml/min; Est GFR (Non-African American) 59.5 ml/min; Potassium 4.6 mmol/L (3.5-5.1)
[2021-06-29] MEDS ORDERED: STROKE PATIENT DISCHARGE STA (14:16)
--- NOTE | 2021-06-29 14:23 | Discharge Summary ---
Date of Service June 29, 2021 Admission HPI Per Admitting Provider This is a 70yo M with PMH of history of frontal lobe CVA on Eliquis, DM II, recurrent DVT, BPH and other medical problems listed below who presents with stroke like symptoms from [facility]. Presented to clinic today due to acute memory loss. Per outpatient note, patient woke up yesterday and was not able to remember names of people he knew and unable to do checkbook calculations. Symptoms began suddenly yesterday and have persisted. No falls. Was noted to have left facial droop as well as aphasia and memory loss. History of right frontal lobe infarct in January 2021 on Eliquis. Until recently has lived with friends and then transition back to living alone a week ago. Manages his own medication and states he has been compliant with all, including baby aspirin and twice daily Eliquis. Was sent from clinic to ED for further evaluation. Upon arrival to ED, facial droop had resolved. Patient answering questions appropriately but still feels as though he is not interpreting or understanding what people are saying to him at his normal speed. Denies any focal weakness or difficulty with ambulation. No sensory changes to extremities. No fever, chills, headache, lightheadedness, chest pain, shortness of breath, nausea, vomiting, abdominal pain, dysuria, diarrhea or constipation. Admission Exam Per Admitting Provider General Appearance:WD/WN, vitals as above, NAD, sitting up in bed, pleasant, conversing easily Head: normocephalic, atraumatic Eyes:normal inspection, PERRL, conjunctivae normal, anicteric sclerae ENT: external ear and nose normal, oropharynx normal Neck: normal visual inspection, trachea midline, no thyromegaly Respiratory:normal respiratory effort, lungs clear to auscultation, no wheeze, rales, rhonchi. No accessory muscle use Cardiovascular: regular rate, rhythm, no murmur, normal peripheral pulses, no BLE edema. Vessels: no JVD Chest: normal inspection of chest Abdomen/GI: normal bowel sounds, soft, nontender, no hepatosplenomegaly Extremities/Musculoskeletal: no cyanosis or clubbing, extremities motor streng th 12/01 Neurologic: PERRL, EOMI, accommodation nl, no face palsy, no dysarthria, CN's II-XI intact bilaterally and moves all extremities Psychiatric:A+Ox3, euthymic affect Skin: no rashes, normal color, warm/dry Principal Diagnosis Acute Stroke Discharge Exam GENERAL: Alert and oriented x3. NAD, on RA. HEENT: No pallor, no icterus. Pupils equal, round and reactive to light. Oral mucosa moist. NECK: No JVD, no neck masses. HEART: S1 and S2 heard. Regular rate and rhythm. No murmur, no gallop. RESPIRATORY SYSTEM: Normal AP diameter. No accessory muscle use. No wheezing, no crackles. ABDOMEN: Soft, bowel sounds present, nontender, no distention. CENTRAL NERVOUS SYSTEM: Alert and oriented x3. Mild left facial droop. Speech is clear. Obeys simple commands. Moves extremities. EXTREMITIES: No edema, no erythema seen. Discharge Data Allergies Allergy/AdvReac Type Severity Reaction Status Date / Time No Known Allergies Allergy Verified 06/27/21 16:09 Consultations 06/27/21 18:47 ED Decision to Admit Stat 06/27/21 21:35 Consult Neurology Routine Ordered Studies 06/27/21 15:21 CT angio head w con Stat CT angio neck with con Stat CT head/brain wo con Stat 06/27/21 21:35 MR brain wo/w con Routine Hospital Course (1) Stroke: (2) Elevated troponin: (3) Elevated lactic acid level: (4) History of DVT (deep vein thrombosis): (5) Hypertension: (6) Diabetes mellitus, type 2: (7) BPH (benign prostatic hypertrophy): 70yo M w/ hx of frontal lobe CVA on Eliquis, DM II, recurrent DVT, who presented 06/27 with stroke like symptoms from [facility]. He was managed for the following: Acute left parietal infarct Acute memory impairment, noted to have L facial droop in clinic [employer]ARDING ROOM [employer] and sent to ED CT head with loss of deras-white matter differentiation in the high left posterior parietal lobe consistent with a subacute infarct. This is new from prior studies Patient states he has been compliant with Eliquis BID and baby aspirin daily Facial droop has mostly resolved. Still feels cognition is slower than baseline and has difficulty expressing himself (expressive aphasia) Continue aspirin, Eliquis BID, statin Brain MRI while inpatient IMPRESSION: 1. 4.1 x 1.6 cm acute infarct within left frontal lobe. No mass effect. No acute hemorrhage. 2. Old right frontal lobe infarct. Echo- Compared to prior study, there is no significant change. LV is normal in size. LV systolic function is normal. EF 60 to 65%. RV systolic function is normal. LA size is normal. RA size is normal. Injection of contrast documented no interatrial shunt. The interatrial septum is intact with no evidence for ASD. Aortic valve sclerosis moderate, without significant aortic valvular stenosis. There is mild to moderate mitral regurg. There is no tricuspid regurg. Grade 1 diastolic dysfunction. PT/OT/speech evaluations - pt is ambulatory but will need extensive speech therapy as outpt Neurology consulted - discussed the case with neuro vasc. in [facility] - recommend to continue ASA and Eliquis as previously (no change to coumadin) - pt will need to follow up with neurology as outpt in 2-3 weeks Troponin elevation Trop elevation of 0.474 initially --> flat trended No chest pain, no acute ST changes on EKG, no history of CAD troponin unchanged, echo unremarkable, as above, monitored on telemetry History of DVT In and . Previously on coumadin and currently on Eliquis HTN resumed home meds upon DC Diabetes mellitus, type 2 A1c 5.1 in Apr 2021 Resumed home meds on DC BPH Continue home Flomax, Proscar Code status: FULL PCP: Dr. Patrick Patient being discharged home with home health with following instruction at the point of discharge: Follow-up with the primary care physician within a week time. Continue with speech therapy as an outpatient. Follow-up with neurology in 2 to 3 months time. Continue with your aspirin and Eliquis as previous, no changes made per discussion with neurology at [facility] and neurovascular at [facility]. Take medications as prescribed. You will be discharged on outpatient Zio patch per neurology recommendation. Total Time Total Time Spent Total Time Spent (In Minutes): 45 Discharge Plan Discharge Items Patient Disposition: Home - Home Health Services Reason For Visit: STROKE EVAL Discharge Diagnosis: Acute left parietal infarct Activity: Resume your previous activity Non-emergency contact: Primary Care Provider Call non-emergency contact if: you have any medication questions and your symptoms worsen Follow-up/Referrals: Tricia Figueroa PA-C [Physician Remotely Operated Vehicle] - (Date & Time 08/04/2021 11:20 AM Provider Tricia Figueroa PA-C Department Neurology [facility] ) Keo Patrick DO [Primary Care Provider] - 06/30/21 10:00 am (Date & Time 06/30/2021 10:00 AM Provider Keo Patrick DO Department Family Practice [facility] ) Diet: Carb Consistent or DM2 Diet Texture: Easy to Chew Addtl Attending Provider Instructions: Follow-up with the primary care physician within a week time. Continue with speech therapy as an outpatient. Follow-up with neurology in 2 to 3 months time. Continue with your aspirin and Eliquis as previous, no changes made per discussion with neurology at [facility] and neurovascular at [facility]. Take medications as prescribed. You will be discharged on outpatient Zio patch per neurology recommendation. Risk Factors for Stroke: You can reduce your chances of stroke by working with your medical provider to adopt a healthy lifestyle. Some specific ways to lower your chance of stroke are: * If you are a smoker, now is the time to stop smoking cigarettes * If you are diabetic, improve the control of your blood sugars * Avoid excessive amounts of alcohol * Control high blood pressure * Lose weight if you are overweight * Be sure to lead an active lifestyle * Eat a healthy diet low in salt, cholesterol and fat You should know about other risk factors for stroke that you are unable to control. These include: * Age 55 years or older * Male gender * Certain racial groups: , or / * Family History of Stroke, Mini stroke or Heart Attack * Sickle Cell Disease Follow Up: It is important for you to keep your follow up appointments with your medical provider. Who to Call and When: Medical Emergencies: Call 911 immediately if you experience any of the following warning signs and symptoms of Stroke: * Sudden numbness or weakness of the face, arm or leg, especially on one side of the body * Sudden confusion, trouble speaking or understanding * Sudden trouble seeing in one or both eyes * Sudden trouble walking, dizziness, loss of balance or coordination * Sudden severe headache with no cause Do not delay calling 911 if you experience any warning signs or symptoms of a stroke. Delay in seeking medical attention may affect what treatments can be given to you. . Pending Studies at Discharge: No Stand-Alone Forms: My [employer], Smoking Cessation Medications and DC Order Prescriptions: Continued finasteride [Proscar] 5 mg tablet 5 mg PO HS RF: 0 Eliquis 5 mg Tablet 5 mg PO BID 30 Days Qty: 60 RF: 3 amlodipine [Norvasc] 5 mg Tablet 2.5 mg PO QAM Qty: 30 RF: 3 metformin 1,000 mg tablet 1,000 mg PO BIDM RF: 0 ferrous sulfate [FeroSul] 325 mg (65 mg iron) tablet 325 mg PO QAM RF: 0 gabapentin [Neurontin] 300 mg capsule 300 mg PO QID RF: 0 atorvastatin [Lipitor] 40 mg tablet 40 mg PO HS RF: 0 aspirin [Aspirin Low Dose] 81 mg tablet,delayed release (DR/EC) 81 mg PO QAM RF: 0 tamsulosin [Flomax] 0.4 mg capsule 0.4 mg PO HS Qty: 14 RF: 1 Discharge Orders: Discharge Order (Routine); Ordered 06/29/21 Ordered By: Mimi Bynum Admission Data Admit Date/Time: 06/27/21 19:24 Attending Provider: Mimi Bynum Admit Provider: Andrew Rodriguez Primary Care Provider: Keo Patrick Other Providers: Andrew Rodriguez ; Todd Zaidi ; [facility] ; [facility]
== END 2021-06-29 15:32 | disposition home health service (06) | DRG 65 ==
LOC: ED 15:23 → SUATTDRO 19:24 → 2S 19:24
DX: Z79.82 Long term (current) use of aspirin; Z79.01 Long term (current) use of anticoagulants; R29.810 Facial weakness; Z20.822 Contact with and (suspected) exposure to COVID-19; Z87.891 Personal history of nicotine dependence; Z79.84 Long term (current) use of oral hypoglycemic drugs; I63.412 Cerebral infarction due to embolism of left middle cerebral artery; E11.9 Type 2 diabetes mellitus without complications; Z86.718 Personal history of other venous thrombosis and embolism; R41.89 Other symptoms and signs involving cognitive functions and awareness; I69.359 Hemiplegia and hemiparesis following cerebral infarction affecting unspecified side; Z79.899 Other long term (current) drug therapy; Z86.711 Personal history of pulmonary embolism; I69.311 Memory deficit following cerebral infarction; N40.0 Benign prostatic hyperplasia without lower urinary tract symptoms; R74.02 Elevation of levels of lactic acid dehydrogenase [LDH]; R41.3 Other amnesia; R29.700 NIHSS score 0; T38.3X5A Adverse effect of insulin and oral hypoglycemic [antidiabetic] drugs, initial encounter; R77.8 Other specified abnormalities of plasma proteins; R47.01 Aphasia

== ENCOUNTER 2022-08-03 16:31 | Inpatient (IN) ==
[2022-08-03 17:03] LABS: Basophils # (auto) 0.09 K/uL (0-0.2); Basophils % (auto) 0.7 %; Eosinophils # (auto) 0.12 K/uL (0-0.50); Eosinophils % (auto) 0.9 %; Hematocrit (blood only) 39.1 % (40.1-51.0); Hemoglobin 13.5 g/dl (14.0-18.0); Immature Granulocytes # (auto) 0.21 K/uL (0.00-0.02); Immature Granulocytes % (auto) 1.6 %; Lymphocytes # (auto) 1.58 K/uL (1.2-3.4); Lymphocytes % (auto) 12.2 %; Mean Corpuscular Hemoglobin 30.2 pg (25.0-34.0); Mean Corpuscular Hgb Conc 34.5 g/dL (32.0-36.0); Mean Corpuscular Volume 87.5 fL (80.0-100.0); Mean Platelet Volume 9.6 fL (9.4-12.4); Monocytes # (auto) 0.87 K/uL (0.24-0.82); Monocytes % (auto) 6.7 %; Neutrophils # (auto) 10.13 K/uL (1.4-6.5); Neutrophils % (auto) 77.9 %; Platelet Count 229 K/uL (130-400); RDW Coefficient of Variation 13.7 % (11.5-14.5); RDW Standard Deviation 43.7 fL (36.4-46.3); Red Blood Count 4.47 M/uL (4.63-6.08)
[2022-08-03 17:25] LABS: Albumin Globulin Ratio 1.4 (0.9-2); Albumin Level 4.5 gm/dl (3.4-5.0); BUN Creatinine Ratio 24.4 (10-20); Bilirubin,Total 1.2 mg/dl (0.2-1.0); Calcium 9.3 mg/dl (8.5-10.1); Creatinine Clr Calc Pharmacy 44.4 ml/min; Est GFR (African American) 50.3 ml/min; Est GFR (Non-African American) 43.4 ml/min; Globulin 3.2 gm/dl (2.5-4.0); Potassium 4.2 mmol/L (3.5-5.1); Total Protein 7.7 gm/dl (6.0-8.3)
[2022-08-03 17:41] LABS: INR 1.1 (0.9-1.1); Partial Thromboplastin Ratio 1.2; Partial Thromboplastin Time 33.9 Seconds (21.0-31.0); Prothrombin Time 11.3 Seconds (9.0-12.0)
--- NOTE | 2022-08-03 19:08 | CT Scan Report ---
CT head/brain wo con CLINICAL HISTORY: 71 years-old Male with Headache - h/o CVA. Acute headache with strokelike symptoms TECHNIQUE: Multiple axial CT images of the head were obtained without contrast. A dose lowering tech nique was utilized adhering to the principles of ALARA. COMPARISON: Head CT 08/30/2021, brain MRI 06/27/2021 FINDINGS: No acute intracranial hemorrhage, midline shift, intracranial mass, hydrocephalus, territorial ischem ia or abnormal extra-axial collection. Involutional changes with mild chronic microvascular ischemic disease. Chronic frontal lobe infarcts. The calvarium is intact. Small mastoid effusions. Paranasal sinuses are clear. Unremarkable soft tis sues. IMPRESSION: 1. No acute intracranial abnormality. 2. Chronic frontal lobe infarcts. ACT 112: Negative or not required by law. The above report was generated using voice recognition software. It may contain grammatical, syntax o r spelling errors. Electronically signed by: Horacio Ramirez M.D. 08/03/2022 7:06 PM
[2022-08-03 19:27] LABS: Magnesium 1.7 mg/dl (1.7-2.4)
[2022-08-03] MEDS ORDERED: SODIUM CHLORIDE 0.9% 1000ML 1,000 ML IV ONE (19:31)
[2022-08-03] MEDS ORDERED: PROCHLORPERAZINE 2 ML IV ONE (19:31)
[2022-08-03] MEDS ORDERED: diphenhydrAMINE 50 MG/ML VIAL IV STA (19:31)
--- NOTE | 2022-08-03 19:43 | Emergency Department Note ---
Impression & Plan Hematuria, Headache, Generalized weakness, Leukocytosis ED Provider Note HISTORY OF PRESENT ILLNESS: Patient is a 71-year-old male presenting with poor oral intake and hematuria. P monica reports that they were followed by his primary care provider about presenting to the emergency department for admission given that he had outpatient blood work today that showed a leukocytosis. Patient was seen a week ago and was noted to be dehydrated. He reports has had poor oral intake over the last week. He reports generalized weakness and a headache. Reports that he has chronic headaches and nothing seems to make it better. Denies any notable fevers at home. Denies any chest pain, shortness of breath, nausea or vomiting. He also reports that he started having bright red blood in his urine last night. He describes a vague suprapubic discomfort. Denies any dysuria. He is on Eliquis. ROS: Constitutional: No fever, chills +weakness Skin: No rash or diaphoresis HENT: No headaches or congestion Eyes: No vision changes Cardio: No chest pain, palpitations or leg swelling Respiratory: No cough, wheezing or shortness of breath GI: No nausea, vomiting, diarrhea, constipation : No dysuria, polyuria MSK: No joint or back pain Neuro: No loss of sensation, confusion, focal deficits, numbness, tingling Psychiatric: No mood changes PHYSICAL EXAM: Constitutional: Patient appears in no acute distress. HENT: Head: Normocephalic and atraumatic. Eyes: EOMI, PERRL Mouth/Throat: Mucous membranes moist. Neck: Trachea midline. Neck supple. Full ROM of neck without meningismus. Cardiovascular: RRR, No murmurs, rubs or gallops. Intact distal pulses. Pulmonary/Chest: No respiratory distress. Breath sounds clear and equal bilaterally. No wheezes or rales. No chest wall tenderness to palpation. Abdominal: BS +. Abdomen soft, no tenderness, rebound or guarding. Back: No midline spinal tenderness, no paraspinal tenderness, no CVA tenderness. Musculoskeletal: No edema, tenderness or deformity noted. Skin: Warm and dry. No rash, erythema, pallor or cyanosis Psychiatric: Appropriate mood and affect for situation. Neurological: Alert and keenly responsive. CN II-XII grossly intact, moving all extremities equally and fully. MDM: - Vitals signs showed hypertension and tachycardia. - History obtained via patient and family at bedside. Patient presents with hematuria and poor oral intake. Patient reports that he was referred to the emergency department for admission given a leukocytosis on outpatient laboratory work-up. Patient denies any chest pain or shortness of breath. Denies any recent fevers. Reports a persistent headache that has been ongoing "for a while." Denies any rashes. - Chronic conditions affecting care: DM-2; HLD; right frontal CVA; recurrent DVT; BPH - Differential diagnoses include, but are not limited to: infection; ureteral stone; UTI; pneumonia; ACS - Order placed for continuous cardiac monitoring. At this time, monitor showed rate of 83 with sinus rhythm, per my interpretation. - External medical records reviewed. - Laboratory workup interpreted by myself showed leukocytosis (WBC 13.0); stable electrolytes; elevated creatinine (Cr 1.56); normal liver function tests; normal lipase; normal procalcitonin - UA showed blood and positive for nitrites. However, no bacteria noted so UTI less likely. - COVID/flu/RSV negative. - CXR interpreted by myself showed no acute cardiopulmonary pathology. - CT head wo contrast negative for acute intracranial pathology. - CT abdomen/pelvis showed no acute pathology. Noted to have some prostamegaly with evidence of chronic bladder outlet obstruction. - Hematuria likely secondary to chronic bladder outlet obstruction. - EKG intepreted by myself showed normal sinus rhythm without acute ischemic changes. Rate 72 bpm. Appears similar to prior EKG from 08/30/2021. - Patient and family do not feel comfortable taking patient home, as they state they were referred to the ER for admission by their PCP. - Discussion had with social work supervisor about patient's case and need for admission. - Hospitalist consulted for admission. - Patient was given 1L NS, 10 mg IV compazine and 25 mg IV benadryl in ER for headache management. - Patient admitted to [facility] service for further evaluation and management. ASSESSMENT AND PLAN: Diagnosis: generalized weakness; headache; leukocytosis; hematuria; headache Plan: admit Past Med/Surg History Medical History MAGY (acute kidney injury) 02/2021- 03/2021 with continuing improving creatinine (2.02 03/31/21 > 1.51 05/03/21) Anemia hgb stable in the 9's BPH (benign prostatic hypertrophy) Diabetes mellitus, type 2 NIDDM Dyslipidemia History of DVT (deep vein thrombosis) 1993- on Eliquis Kidney stones Pulmonary embolism 1993- on Eliquis Stroke 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 ischemic stroke, residual mild weakness and short- term memory impairment Surgical History H/O colonoscopy History of back surgery No hardware History of cystoscopy Cystoscopy, left retropyelogram, Left ureteral stent placement (03/30/21): LMA#4 at [facility] History of tympanoplasty of right ear Status post appendectomy Family History Uncle Family history of diabetes mellitus Other Heart disease Social History Smoking Status: Former smoker Tobacco Type: Cigarettes Second Hand Exposure: Yes (FRIEND'S SPOUSE SMOKES-STAYING AT THEIR HOUSE CURRENTLY); Hx Alcohol Use: No Hx Substance Use: No Preferred Language: Turkmen Communication Ability: Effective Senior Visual Designer Required: No Beliefs That Will Affect Care: None marital status: / Current Living Situation: Alone current occupation: NOT WORKING How many Children do You have: 0 Feels Safe at Home: Yes Assistive Devices: None Allergies Allergies Allergy/AdvReac Type Severity Reaction Status Date / Time No Known Allergies Allergy Verified 08/03/22 19:14 Home Meds Home Medications Medication Instructions Recorded Confirmed metformin 1,000 mg tablet 1,000 mg PO BIDM 02/12/21 08/03/22 aspirin 81 mg tablet,delayed 81 mg PO QAM 03/29/21 08/03/22 release (Bong Low Dose Aspirin) atorvastatin 40 mg tablet (Lipitor) 40 mg PO HS 03/29/21 08/03/22 gabapentin 300 mg capsule 300 mg PO QID 03/29/21 08/03/22 (Neurontin) ferrous sulfate 325 mg (65 mg 325 mg PO AMHS 06/27/21 08/03/22 iron) tablet (FeroSul) propranolol 10 mg tablet 10 mg PO BID 07/28/22 08/03/22 Cinnamon Caps 1,200 mg PO TID 08/03/22 08/03/22 Previous Rx's Medication Instructions Recorded amlodipine 5 mg tablet (Norvasc) 2.5 mg PO QAM #30 tabs 02/02/21 apixaban 5 mg tablet (Eliquis) 5 mg PO BID 30 days #60 tabs 02/02/21 finasteride 5 mg tablet (Proscar) 5 mg PO DAILY #90 tabs 01/24/22 Results & Data (ED) Vital Signs Vital Signs - 24 hr 08/03/22 16:33 08/03/22 19:32 08/03/22 19:32 Temperature 36.4 C L 36.8 C Temperature Source Temporal Artery Scan Oral Pulse Rate 103 H Pulse Rate [Right Finger] 67 Pulse Rhythm Regular Pulse Rhythm [Right Finger] Regular Respiratory Rate 20 14 Respiratory Effort / Characteristics Non-Labored Spontaneous Non-Labored Spontaneous Respiratory Depth Normal Normal Respiratory Pattern Blood Pressure 157/88 H Blood Pressure [Right Arm] 157/86 H Blood Pressure Mean 111 Blood Pressure Mean [Right Arm] 109 Blood Pressure Position [Right Arm] Lying Pulse Oximetry 97 99 98 Oxygen Delivery Method Room Air Room Air Room Air Sepsis Recent Fever Within 48 Hours No Sepsis New/Unexplained Change in Mental Status No Sepsis Action Taken by Nursing No Action Required 08/03/22 21:35 Temperature Temperature Source Pulse Rate Pulse Rate [Right Finger] 67 Pulse Rhythm Pulse Rhythm [Right Finger] Respiratory Rate 14 Respiratory Effort / Characteristics Non-Labored Spontaneous Respiratory Depth Normal Respiratory Pattern Regular Blood Pressure Blood Pressure [Right Arm] 134/67 Blood Pressure Mean Blood Pressure Mean [Right Arm] 89 Blood Pressure Position [Right Arm] Pulse Oximetry 97 Oxygen Delivery Method Room Air Sepsis Recent Fever Within 48 Hours Sepsis New/Unexplained Change in Mental Status Sepsis Action Taken by Nursing Laboratory Data 08/03/22 16:48 08/03/22 16:48 Lab Results 08/03/22 08/03/22 08/03/22 Range/Units 16:48 16:48 16:48 WBC 13.00 H (4.8-10.8) K/ul RBC 4.47 L (4.63-6.08) M/uL Hgb 13.5 L (14.0-18.0) g/dl Hct 39.1 L (40.1-51.0) % MCV 87.5 (80.0-100.0) fL MCH 30.2 (25.0-34.0) pg MCHC 34.5 (32.0-36.0) g/dL RDW Std Deviation 43.7 (36.4-46.3) fL RDW Coeff of Aranza 13.7 (11.5-14.5) % Plt Count 229 (130-400) K/uL MPV 9.6 (9.4-12.4) fL Immature Gran % (Auto) 1.6 % Neut % (Auto) 77.9 % Lymph % (Auto) 12.2 % [place] % (Auto) 6.7 % Eos % (Auto) 0.9 % Baso % (Auto) 0.7 % Neut # (Auto) 10.13 H (1.4-6.5) K/uL Lymph # (Auto) 1.58 (1.2-3.4) K/uL [place] # (Auto) 0.87 H (0.24-0.82) K/uL Eos # (Auto) 0.12 (0-0.50) K/uL Baso # (Auto) 0.09 (0-0.2) K/uL Immature Gran # (Auto) 0.21 H (0.00-0.02) K/uL PT 11.3 (9.0-12.0) Seconds INR 1.1 (0.9-1.1) APTT 33.9 H (21.0-31.0) Seconds PTT Ratio 1.2 Sodium 138 (136-145) mmol/L Potassium 4.2 (3.5-5.1) mmol/L Chloride 103 (98-107) mmol/L Carbon Dioxide 23 (21-32) mmol/L Anion Gap 12 H (3-11) BUN 38 H (6-23) mg/dl Creatinine 1.56 H (0.6-1.4) mg/dl Est Cr Clr Drug Dosing 44.4 ml/min Est GFR ( Amer) 50.3 ml/min Est GFR (Non-Af Amer) 43.4 ml/min BUN/Creatinine Ratio 24.4 H (10-20) Glucose 162 H (70-99(Fasting)) mg/dl Calcium 9.3 (8.5-10.1) mg/dl Magnesium (1.7-2.4) mg/dl Total Bilirubin 1.2 H (0.2-1.0) mg/dl AST 18 (13-39) U/L ALT 13 (7-52) U/L Alkaline Phosphatase 82 (34-104) U/L Troponin I High Sens (0-20) pg/ml Total Protein 7.7 (6.0-8.3) gm/dl Albumin 4.5 (3.4-5.0) gm/dl Globulin 3.2 (2.5-4.0) gm/dl Albumin/Globulin Ratio 1.4 (0.9-2) Lipase 57 (11-82) U/L Procalcitonin (0-0.5) ng/ml Urine Color Urine Appearance (Clear) Urine pH (4.5-7.5) Ur Specific [place] (1.000-1.030) Urine Protein (Negative) Urine Glucose (UA) (Negative) Urine Ketones (Negative) Urine Blood (Negative) Urine Nitrite (Negative) Urine Bilirubin (Negative) Urine Urobilinogen (Negative) Ur Leukocyte Esterase (Negative) Urine WBC (Auto) (0-5) /hpf Urine RBC (Auto) (0-4) /hpf U Hyaline Cast (Auto) (0-5) /lpf U Epithel Cells (Auto) (0-5) /lpf Urine Bacteria (Auto) (Negative) Ur Renal Epithelial Cell Urine Yeast SARS-CoV-2 (PCR) (Negative) Influenza Type A (PCR) (Neg) Influenza Type B (PCR) (Neg) RSV (RT-PCR) (Neg) 08/03/22 08/03/22 08/03/22 Range/Units 16:48 16:48 19:34 WBC (4.8-10.8) K/ul RBC (4.63-6.08) M/uL Hgb (14.0-18.0) g/dl Hct (40.1-51.0) % MCV (80.0-100.0) fL MCH (25.0-34.0) pg MCHC (32.0-36.0) g/dL RDW Std Deviation (36.4-46.3) fL RDW Coeff of Aranza (11.5-14.5) % Plt Count (130-400) K/uL MPV (9.4-12.4) fL Immature Gran % (Auto) % Neut % (Auto) % Lymph % (Auto) % [place] % (Auto) % Eos % (Auto) % Baso % (Auto) % Neut # (Auto) (1.4-6.5) K/uL Lymph # (Auto) (1.2-3.4) K/uL [place] # (Auto) (0.24-0.82) K/uL Eos # (Auto) (0-0.50) K/uL Baso # (Auto) (0-0.2) K/uL Immature Gran # (Auto) (0.00-0.02) K/uL PT (9.0-12.0) Seconds INR (0.9-1.1) APTT (21.0-31.0) Seconds PTT Ratio Sodium (136-145) mmol/L Potassium (3.5-5.1) mmol/L Chloride (98-107) mmol/L Carbon Dioxide (21-32) mmol/L Anion Gap (3-11) BUN (6-23) mg/dl Creatinine (0.6-1.4) mg/dl Est Cr Clr Drug Dosing ml/min Est GFR ( Amer) ml/min Est GFR (Non-Af Amer) ml/min BUN/Creatinine Ratio (10-20) Glucose (70-99(Fasting)) mg/dl Calcium (8.5-10.1) mg/dl Magnesium 1.7 (1.7-2.4) mg/dl Total Bilirubin (0.2-1.0) mg/dl AST (13-39) U/L ALT (7-52) U/L Alkaline Phosphatase (34-104) U/L Troponin I High Sens 5.8 (0-20) pg/ml Total Protein (6.0-8.3) gm/dl Albumin (3.4-5.0) gm/dl Globulin (2.5-4.0) gm/dl Albumin/Globulin Ratio (0.9-2) Lipase (11-82) U/L Procalcitonin < 0.05 (0-0.5) ng/ml Urine Color [place] Urine Appearance Cloudy A (Clear) Urine pH 5.0 (4.5-7.5) Ur Specific [place] 1.019 (1.000-1.030) Urine Protein 3+ H (Negative) Urine Glucose (UA) Negative (Negative) Urine Ketones Negative (Negative) Urine Blood 3+ H (Negative) Urine Nitrite Positive A (Negative) Urine Bilirubin 1+ H (Negative) Urine Urobilinogen Negative (Negative) Ur Leukocyte Esterase 1+ H (Negative) Urine WBC (Auto) >30 H (0-5) /hpf Urine RBC (Auto) >30 H (0-4) /hpf U Hyaline Cast (Auto) 1-5 (0-5) /lpf U Epithel Cells (Auto) >30 H (0-5) /lpf Urine Bacteria (Auto) Negative (Negative) Ur Renal Epithelial Cell Not Reportable Urine Yeast Not Reportable SARS-CoV-2 (PCR) (Negative) Influenza Type A (PCR) (Neg) Influenza Type B (PCR) (Neg) RSV (RT-PCR) (Neg) 08/03/22 Range/Units 19:34 WBC (4.8-10.8) K/ul RBC (4.63-6.08) M/uL Hgb (14.0-18.0) g/dl Hct (40.1-51.0) % MCV (80.0-100.0) fL MCH (25.0-34.0) pg MCHC (32.0-36.0) g/dL RDW Std Deviation (36.4-46.3) fL RDW Coeff of Aranza (11.5-14.5) % Plt Count (130-400) K/uL MPV (9.4-12.4) fL Immature Gran % (Auto) % Neut % (Auto) % Lymph % (Auto) % [place] % (Auto) % Eos % (Auto) % Baso % (Auto) % Neut # (Auto) (1.4-6.5) K/uL Lymph # (Auto) (1.2-3.4) K/uL [place] # (Auto) (0.24-0.82) K/uL Eos # (Auto) (0-0.50) K/uL Baso # (Auto) (0-0.2) K/uL Immature Gran # (Auto) (0.00-0.02) K/uL PT (9.0-12.0) Seconds INR (0.9-1.1) APTT (21.0-31.0) Seconds PTT Ratio Sodium (136-145) mmol/L Potassium (3.5-5.1) mmol/L Chloride (98-107) mmol/L Carbon Dioxide (21-32) mmol/L Anion Gap (3-11) BUN (6-23) mg/dl Creatinine (0.6-1.4) mg/dl Est Cr Clr Drug Dosing ml/min Est GFR ( Amer) ml/min Est GFR (Non-Af Amer) ml/min BUN/Creatinine Ratio (10-20) Glucose (70-99(Fasting)) mg/dl Calcium (8.5-10.1) mg/dl Magnesium (1.7-2.4) mg/dl Total Bilirubin (0.2-1.0) mg/dl AST (13-39) U/L ALT (7-52) U/L Alkaline Phosphatase (34-104) U/L Troponin I High Sens (0-20) pg/ml Total Protein (6.0-8.3) gm/dl Albumin (3.4-5.0) gm/dl Globulin (2.5-4.0) gm/dl Albumin/Globulin Ratio (0.9-2) Lipase (11-82) U/L Procalcitonin (0-0.5) ng/ml Urine Color Urine Appearance (Clear) Urine pH (4.5-7.5) Ur Specific [place] (1.000-1.030) Urine Protein (Negative) Urine Glucose (UA) (Negative) Urine Ketones (Negative) Urine Blood (Negative) Urine Nitrite (Negative) Urine Bilirubin (Negative) Urine Urobilinogen (Negative) Ur Leukocyte Esterase (Negative) Urine WBC (Auto) (0-5) /hpf Urine RBC (Auto) (0-4) /hpf U Hyaline Cast (Auto) (0-5) /lpf U Epithel Cells (Auto) (0-5) /lpf Urine Bacteria (Auto) (Negative) Ur Renal Epithelial Cell Urine Yeast SARS-CoV-2 (PCR) NEGATIVE (Negative) Influenza Type A (PCR) Negative (Neg) Influenza Type B (PCR) Negative (Neg) RSV (RT-PCR) Negative (Neg) Administered Medications Discontinued Medications Diphenhydramine HCl (Diphenhydramine 50 Mg/Ml Vial) 25 mg IV NOW STA Stop: 08/03/22 19:32 Last Admin: 08/03/22 20:14 Dose: 25 mg Documented By: LH Sodium Chloride (Nss 1000ml) 1,000 mls @ 999 mls/hr IV .Q1H1M ONE Stop: 08/03/22 20:31 Last Infusion: 08/03/22 21:35 Dose: 0 mls/hr Documented By: Admin: 08/03/22 20:14 Dose: 999 mls/hr Documented By: EDDA Prochlorperazine (Compazine) 2 mls @ 1 mls/min IV ONE ONE Stop: 08/03/22 19:32 Last Admin: 08/03/22 20:14 Dose: 1 mls/min Documented By: EDDA Imaging Data Radiologist's Impression: Abdomen/Pelvis CT 08/03/22 17:[address] WITHOUT CONTRAST CT DOSE: 1647.96 mGy.cm HISTORY: Acute hematuria patient with history of kidney stones Hematuria - h/o stones TECHNIQUE: Multiaxial CT images of the abdomen and pelvis were performed without contrast. A dose lowering technique was utilized adhering to the principles of ALARA. COMPARISON STUDY: CT abdomen and pelvis 03/29/2021 FINDINGS: Coronary artery calcifications. Trace pericardial effusion. Clear lung bases. No pneumatosis or pneumoperitoneum. The unenhanced spleen measures within the upper limits of normal in size. Unremarkable pancreas, gallbladder and left adrenal gland. A millimeter benign-appearing hypodense right adrenal gland lesion is unchanged. Unremarkable liver. Mild cortical thinning of the bilateral kidneys. Bilateral renal vascular calcifications. Punctate nonobstructing calculus of the interpolar right kidney. No definite left nephrolithiasis. There is decreased stone burden of the kidneys compared to the prior study. No ureteral calculi or hydronephrosis identified. Prostamegaly. Decompressed urinary bladder with wall thickening and perivesicular stranding. Atherosclerosis of the aorta. No lymphadenopathy identified. Tiny hiatal hernia. No bowel obstruction or bowel wall thickening. Colonic diverticulosis. Scattered colonic air-fluid levels. Prior appendectomy. Tiny fat filled umbilical hernia, diastases 1.2 cm. Unremarkable soft tissues. No acute fracture. IMPRESSION: 1. Decreased nephrolithiasis compared to the 03/29/2021 exam with only a single punctate calculus of the right kidney remaining. 2. No ureteral calculi or hydronephrosis 3. No bowel obstruction or bowel wall thickening. 4. Colonic diverticulosis. 5. Prostamegaly with evidence of chronic bladder outlet obstruction. ACT 112: Negative or not required by law. The above report was generated using voice recognition software. It may contain grammatical, syntax or spelling errors. Electronically signed by: Horacio Ramirez M.D. 08/03/2022 7:[address] 08/03/22 17:41 CT head/brain wo con CLINICAL HISTORY: 71 years-old Male with Headache - h/o CVA. Acute headache with strokelike symptoms TECHNIQUE: Multiple axial CT images of the head were obtained without contrast. A dose lowering technique was utilized adhering to the principles of ALARA. COMPARISON: Head CT 08/30/2021, brain MRI 06/27/2021 FINDINGS: No acute intracranial hemorrhage, midline shift, intracranial mass, hydrocephalus, territorial ischemia or abnormal extra-axial collection. Invo lutional changes with mild chronic microvascular ischemic disease. Chronic frontal lobe infarcts. The calvarium is intact. Small mastoid effusions. Paranasal sinuses are clear. Unremarkable soft tissues. IMPRESSION: 1. No acute intracranial abnormality. 2. Chronic frontal lobe infarcts. ACT 112: Negative or not required by law. The above report was generated using voice recognition software. It may contain grammatical, syntax or spelling errors. Electronically signed by: Horacio Ramirez M.D. 08/03/2022 7:06 PM Chest X-Ray 08/03/22 18:48 XR chest 2V PA/lateral HISTORY: 71 years-old Male dizziness; leukocytosis acute dizziness COMPARISON: Acute abdominal series radiographs 07/28/2022 TECHNIQUE: PA and lateral views of the chest FINDINGS: Cardiomediastinal and hilar silhouettes are within normal limits. No pneumothorax, pleural effusion, airspace consolidation or overt pulmonary edema. Nipple shadows project over the lung bases. Degenerative changes of the shoulders and spine. Punctate metallic density fragment of the medial left upper arm redemonstrated. IMPRESSION: No acute process. ACT 112: Negative or not required by law. The above report was generated using voice recognition software. It may contain grammatical, syntax or spelling errors. Electronically signed by: Horacio Ramirez M.D. 08/03/2022 7:48 PM Discharge Plan Visit Data Chief Complaint: Hematuria Stated Complaint: REF BY DOC, HEADACHE, BLOOD IN URINE ED Provider: Seema Bhagat Discharge Problem: Hematuria, Headache, Generalized weakness, Leukocytosis Patient Disposition: Admitted As Inpatient Forms Stand Alone Forms: My [facility] Prescriptions Prescriptions: No Action finasteride [Proscar] 5 mg tablet 5 mg PO DAILY Qty: 90 3RF Eliquis 5 mg Tablet 5 mg PO BID 30 Days Qty: 60 3RF amlodipine [Norvasc] 5 mg Tablet 2.5 mg PO QAM Qty: 30 3RF metformin 1,000 mg tablet 1,000 mg PO BIDM ferrous sulfate [FeroSul] 325 mg (65 mg iron) tablet 325 mg PO AMHS propranolol 10 mg tablet 10 mg PO BID gabapentin [Neurontin] 300 mg capsule 300 mg PO QID atorvastatin [Lipitor] 40 mg tablet 40 mg PO HS aspirin [Bong Low Dose Aspirin] 81 mg tablet,delayed release (DR/EC) 81 mg PO QAM Cinnamon Caps 1,200 mg PO TID Referrals Referrals: Keo Patrick DO [Primary Care Provider] -
[2022-08-03 19:48] LABS: Troponin I High Sensitivity 5.8 pg/ml (0-20)
--- NOTE | 2022-08-03 19:50 | XRay Report ---
XR chest 2V PA/lateral HISTORY: 71 years-old Male dizziness; leukocytosis acute dizziness COMPARISON: Acute abdominal series radiographs 07/28/2022 TECHNIQUE: PA and lateral views of the chest FINDINGS: Cardiomediastinal and hilar silhouettes are within normal limits. No pneumothorax, pleural effusion, airspace consolidation or overt pulmonary edema. Nipple shadows project over the lung bases. Degenera tive changes of the shoulders and spine. Punctate metallic density fragment of the medial left upper arm redemonstrated. IMPRESSION: No acute process. ACT 112: Negative or not required by law. The above report was generated using voice recognition software. It may contain grammatical, syntax o r spelling errors. Electronically signed by: Horacio Ramirez M.D. 08/03/2022 7:48 PM
--- NOTE | 2022-08-03 19:50 | CT Scan Report ---
ABDOMEN AND PELVIS CT WITHOUT CONTRAST CT DOSE: 1647.96 mGy.cm HISTORY: Acute hematuria patient with history of kidney stones Hematuria - h/o stones TECHNIQUE: Multiaxial CT images of the abdomen and pelvis were performed without contrast. A dose lo wering technique was utilized adhering to the principles of ALARA. COMPARISON STUDY: CT abdomen and pelvis 03/29/2021 FINDINGS: Coronary artery calcifications. Trace pericardial effusion. Clear lung bases. No pneumatosi s or pneumoperitoneum. The unenhanced spleen measures within the upper limits of normal in size. Unre markable pancreas, gallbladder and left adrenal gland. A millimeter benign-appearing hypodense right adrenal gland lesion is unchanged. Unremarkable liver. Mild cortical thinning of the bilateral kidneys. Bilateral renal vascular calcifications. Punctate no nobstructing calculus of the interpolar right kidney. No definite left nephrolithiasis. There is decr eased stone burden of the kidneys compared to the prior study. No ureteral calculi or hydronephrosis identified. Prostamegaly. Decompressed urinary bladder with wall thickening and perivesicular strandi ng. Atherosclerosis of the aorta. No lymphadenopathy identified. Tiny hiatal hernia. No bowel obstruction or bowel wall thickening. Colonic diverticulosis. Scattered colonic air-fluid levels. Prior appendectomy. Tiny fat filled umbilical hernia, diastases 1.2 cm. Unr emarkable soft tissues. No acute fracture. IMPRESSION: 1. Decreased nephrolithiasis compared to the 03/29/2021 exam with only a single punctate calculus of t he right kidney remaining. 2. No ureteral calculi or hydronephrosis 3. No bowel obstruction or bowel wall thickening. 4. Colonic diverticulosis. 5. Prostamegaly with evidence of chronic bladder outlet obstruction. ACT 112: Negative or not required by law. The above report was generated using voice recognition software. It may contain grammatical, syntax o r spelling errors. Electronically signed by: Horacio Ramirez M.D. 08/03/2022 7:47 PM
[2022-08-03 20:07] LABS: Appearance Urine Cloudy (Clear); Bacteria Urine Automated Negative (Negative); Blood Urine 3+ (Negative); Color Urine Orange; Epithelial Cell Urine Auto >30 /lpf (0-5); Glucose Urine UA Negative (Negative); Ketones Urine Negative (Negative); Leukocyte Esterase Urine 1+ (Negative); Nitrite Urine Positive (Negative); Protein Urine 3+ (Negative); Specific Gravity Urine 1.019 (1.000-1.030); Urobilinogen Urine Negative (Negative); WBC Urine Automated >30 /hpf (0-5)
[2022-08-03 20:08] LABS: Bilirubin Urine 1+ (Negative)
[2022-08-03 20:15] LABS: RBC Urine Automated >30 /hpf (0-4)
[2022-08-03 20:24] LABS: Influenza A virus by PCR Negative (Neg); Influenza B virus by PCR Negative (Neg); RSV by PCR Negative (Neg); SARS CoV2 RNA(COVID-19) Ceph NEGATIVE (Negative)
[2022-08-04] MEDS ORDERED: GLUCAGON FOR INJ 1 MG VIAL SQ PRN (00:11)
[2022-08-04] MEDS ORDERED: GLUCOSE 10 TAB/TUBE PO PRN (00:11)
[2022-08-04] MEDS ORDERED: GLUCOSE 40% GEL 15 GM TUBE PO PRN (00:11)
[2022-08-04] MEDS ORDERED: CARBOHYDRATES FOR HYPOGLYCEMIA PO PRN (00:11)
[2022-08-04] MEDS ORDERED: DEXTROSE 50% 50 ML SYRINGE IV PRN (00:11)
[2022-08-04] MEDS ORDERED: NITROGLYCERIN SL 0.4 MG/TAB TAB SL PRN (00:11)
[2022-08-04] MEDS ORDERED: POLYETHYLENE (MIRALAX) 17 GM PACK PO PRN (00:11)
[2022-08-04] MEDS ORDERED: ACETAMINOPHEN 325 MG TAB PO PRN (00:11)
[2022-08-04] MEDS: cefTRIAXone SODIUM 2,000 MG in DEXTROSE 5% 50 ML IV SCH (00:59)
[2022-08-04] MEDS: SODIUM CHLORIDE 0.9% 1000ML 1,000 ML IV SCH ×2 (00:59→13:32)
--- NOTE | 2022-08-04 01:45 | Urology Consultation ---
Date of Consultation August 04, 2022 Assessment & Plan (1) Hematuria: The patient has been admitted on the hospitalist service. Concerning hematuria recommend proceeding as follows: His hematuria may be secondary to urinary tract infection in the setting of anticoagulation The patient has been started on antibiotics which can be tailored based on urine culture results once available If the patient has inability to void a Birch catheter may have to be placed with irrigation of his bladder but at the present time this is not a problem and therefore we can hold off on this. Would recommend holding the patient's anticoagulation if medically acceptable until his hematuria resolves. Once his hematuria resolves consideration can be given to resuming this. Additional recommendations be forthcoming based on his clinical course as it unfolds Supervising Physician Co-Signing Physician Notes I have discussed Mr. Solis's case with Todd Bedolla PA-C and agree with the above documentation. Continue antibiotics until urine culture becomes available. Can tailor antibiotics based on culture data. As long as he is able to void, he does not require catheterization or further intervention at this time. CT scan does not identify any significant clot burden within the bladder or any large stones. No plan for acute urologic intervention. Urology will follow along. History of Present Illness Reason for Consultation: Hematuria Attending Physician: Heaven Young MD History of Present Illness This is a 71-year-old male who presented to the emergency department secondary to gross hematuria. The patient notes that he has been having hematuria for approximately 2 to 3 days. He said he saw his family physician who ordered some blood work and was subsequent told to report to the emergency department. The patient notes that with his current hematuria he denies any dysuria. He denies any visible blood clots and notes that the characterization of his urine is Felipe-Aid like and not dark blood. He denies the inability to empty his bladder notes that his urine stream appears good. He denies any back or flank pain. He does have a history of kidney stones but notes that he has not had issues with this in many years. Additional symptoms the patient has that he notes are poor oral intake over the past week with generalized weakness and a headache. He denies any fevers, shakes, or chills. He denies any nausea or vomiting or chest pain. He does note that he does take anticoagulation in the form of Eliquis. Since arrival to the emergency department the patient has had labs and imaging which I independent reviewed. He did have a CT scan of the abdomen pelvis that showed patient had nephrolithiasis consisting of a single punctate calculus in the right kidney which was decreased compared to CT scans from February 2021. There were no ureteral kidney stones noted there is prostamegaly noted with evidence of chronic bladder outlet obstruction. A CT scan of the head showed no acute intracranial abnormalities. A chest x-ray showed no evidence of pneumonia. Labs include a CBC were white blood cell count was noted to be 13.0. Hemoglobin and hematocrit were 13.5 and 39.1. Platelet count was noted to be normal. His coagulation studies consisted of an INR that was within normal range. Chemistry profile showed sodium and potassium were normal. His BUN and creatinine were 38 and 1.5. Urinalysis showed cloudy urine with 3+ blood and was positive for nitrites. There is also 1+ leukocyte Estrace and greater than 30 white blood cells per high-power field. No bacteria noted on the study. The patient was tested for COVID, influenza a and B, and RSV all of which were negative. Since arrival to the emergency department he has been initiated on antibiotics in the form of Rocephin. At the time of my interview he was resting comfortably in bed he was in no distress. Allergies Allergy/AdvReac Type Severity Reaction Status Date / Time No Known Allergies Allergy Verified 08/03/22 19:14 Home Medications Medication Instructions Recorded Confirmed Type amlodipine 5 mg tablet (Norvasc) 2.5 mg PO QAM #30 tabs 02/02/21 08/03/22 Rx apixaban 5 mg tablet (Eliquis) 5 mg PO BID 30 days #60 tabs 02/02/21 08/03/22 Rx metformin 1,000 mg tablet 1,000 mg PO BIDM 02/12/21 08/03/22 History aspirin 81 mg tablet,delayed 81 mg PO QAM 03/29/21 08/03/22 History release (Bong Low Dose Aspirin) atorvastatin 40 mg tablet (Lipitor) 40 mg PO HS 03/29/21 08/03/22 History gabapentin 300 mg capsule 300 mg PO QID 03/29/21 08/03/22 History (Neurontin) ferrous sulfate 325 mg (65 mg 325 mg PO AMHS 06/27/21 08/03/22 History iron) tablet (FeroSul) finasteride 5 mg tablet (Proscar) 5 mg PO DAILY #90 tabs 01/24/22 08/03/22 Rx propranolol 10 mg tablet 10 mg PO BID 07/28/22 08/03/22 History Cinnamon Caps 1,200 mg PO TID 08/03/22 08/03/22 History Patient History Medical History MAGY (acute kidney injury) 02/2021- 03/2021 with continuing improving creatinine (2.02 03/31/21 > 1.51 05/03/21) Anemia hgb stable in the BPH (benign prostatic hypertrophy) Diabetes mellitus, type 2 NIDDM Dyslipidemia History of DVT (deep vein thrombosis) 1993- on Eliquis Kidney stones Pulmonary embolism 1993- on Eliquis Stroke 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 ischemic stroke, residual mild weakness and short- term memory impairment Surgical History H/O colonoscopy History of back surgery No hardware History of cystoscopy Cystoscopy, left retropyelogram, Left ureteral stent placement (03/30/21): LMA#4 at [facility] History of tympanoplasty of right ear Status post appendectomy Family History Uncle Family history of diabetes mellitus Other Heart disease Social History Smoking Status: Former smoker Tobacco Type: Cigarettes Second Hand Exposure: Yes (FRIEND'S SPOUSE SMOKES-STAYING AT THEIR HOUSE CURRENTLY); Hx Alcohol Use: No Hx Substance Use: No Preferred Language: Lao Communication Ability: Effective General Cargo Clerk Required: No Beliefs That Will Affect Care: None marital status: / Current Living Situation: Other current occupation: NOT WORKING How many Children do You have: 0 Feels Safe at Home: Yes Assistive Devices: None Review of Systems Constitutional: + fatigue; no fever and no chills Eyes: no eye pain Ear, Nose, Mouth, Throat: no ear pain Respiratory: no cough and no dyspnea Cardiovascular: no chest pain Gastrointestinal: no nausea and no vomiting Genitourinary: + as per Subjective / HPI and + hematuria; no dysuria or no flank pain Musculoskeletal: no back pain Integumentary: no rash Neurologic: no localized weakness Physical Exam Constitutional: well developed and well nourished; no acute distress Eyes: no conjunctival abnormality ENMT: Ears: no hearing impairment Mouth: no oropharynx abnormality Neck: trachea midline Respiratory: normal respiratory effort; no respiratory distress and no labored breathing Cardiovascular: Rate/Rhythm: regular rate and regular rhythm Gastrointestinal (Abdomen): Soft, nonrigid, nondistended, and nontender to palpation Musculoskeletal: No calf tenderness Skin: no rashes Neurologic: moves all extremities Psychiatric: A+Ox3, euthymic affect Genitourinary: no CVA tenderness Results & Data ([facility]) Vital Signs (Past 12 Hours) Vital Signs Temp Pulse Pulse Resp BP BP Pulse Ox 08/04/22 01:03 69 14 110/69 95 08/03/22 23:06 71 16 171/87 H 99 08/03/22 21:35 67 14 134/67 97 08/03/22 19:32 98 08/03/22 19:32 36.8 C 67 14 157/86 H 99 08/03/22 16:33 36.4 C L 103 H 20 157/88 H 97 O2 Del Method 08/04/22 01:03 Room Air 08/03/22 23:06 Room Air 08/03/22 21:35 Room Air 08/03/22 19:32 Room Air 08/03/22 19:32 Room Air 08/03/22 16:33 Room Air PG Care Time/CCT Total # of Minutes Spent Total Time Spent with Patient: Total time spent is greater than 50% in coordination of care (as documented) at patient's floor/unit and/or counseling patient: Coding Level of Care Code INP/OBS CONSULT LVL 5, 80 MIN Diagnoses Hematuria R31.9
--- NOTE | 2022-08-04 02:41 | History and Physical Report ---
DATE OF ADMISSION: 08/03/2022. CHIEF COMPLAINT: Hematuria and elevated white count. HISTORY OF PRESENT ILLNESS: A 71-year-old male with past medical history significant for type 2 diabetes, hyperlipidemia, history of recurrent DVTs, varicose vein of leg, hypertension, history of BPH, history of kidney stones, history of CVA with left-sided weakness, history of aphasia post stroke, currently speaking okay, history of dizziness, lives with his best friend. Ambulates without any support. He says he is swallowing okay, but his appetite is down last few days .Also he was having hematuria. He went to PCP and his white count was elevated on labs and advised to come to the ER. Currently, resting comfortably, hemodynamically stable. Denies any headache. No blurred visions, no earache, no runny nose, no sore throat, no cough, no fever, no chest pain, no shortness of breath, no nausea, no abdominal pain. Normal bowel movements. No swelling in the legs. No rash. ALLERGIES: No known drug allergies. PAST MEDICAL HISTORY: As mentioned above. PAST SURGICAL HISTORY: Colonoscopy with biopsy, right ear tympanoplasty, appendectomy, ultrasound transrectal biopsy. MEDICATIONS: The patient is on amlodipine 2.5 mg p.o. daily, aspirin 81 mg p.o. daily, Lipitor 40 mg p.o. at bedtime, Eliquis 5 mg p.o. b.i.d., ferrous sulfate 325 mg p.o. b.i.d., finasteride 5 mg p.o. daily, gabapentin 300 mg p.o. b.i.d., metformin 1000 mg p.o. b.i.d., propranolol 10 mg p.o. b.i.d. FAMILY HISTORY: Significant for no family history on file. SOCIAL HISTORY: . Former smoker. No alcohol, no drug use. REVIEW OF SYSTEMS: As per HPI. Rest of the review of systems is negative. PHYSICAL EXAMINATION: GENERAL: The patient is of moderate build, not in acute distress. VITAL SIGNS: Temperature 36.8, pulse 71, respiratory rate 16, blood pressure 121/87, oxygen 98% on room air. HEENT: Pupils equal, round and reactive to light. Oral mucosa moist. NECK: No JVD, no neck masses. CARDIOVASCULAR: S1 and S2 heard. Regular rate and rhythm. No murmur, no gallop. RESPIRATORY SYSTEM: Normal AP diameter. No accessory muscle use. No wheezing, no crackles. ABDOMEN: Soft, bowel sounds present, nontender, no distention. CENTRAL NERVOUS SYSTEM: Alert and oriented. Speech is clear. No facial droop. Obeys simple commands. Moves extremities. EXTREMITIES: No edema, no erythema. LABORATORY DATA: WBC 13, hemoglobin 13.5, hematocrit 39.1, platelets 229. PT 11.3, INR 1.1, APTT33.9 Sodium 138, potassium 4.2, chloride 103, bicarbonate 23, BUN 38, creatinine 1.56, serum glucose 162, calcium 9.3, magnesium 1.7, total bilirubin 1.2, AST 18, ALT 13, alkaline phosphatase 82. Troponin I high sensitivity 5.8. Lipase 57. Procalcitonin less than 0.05. Urinalysis cloudy, +3 protein, +3 blood, nitrite positive, +1 leukocyte esterase, SARS-CoV-2 PCR negative. Influenza A and B PCR negative. RSV PCR negative. IMAGING DATA: Chest x-ray, no acute findings. CT of the head, no acute findings. Chronic lobular frontal lobe infarcts. CT of abdomen and pelvis, decreased nephrolithiasis. No bowel obstruction, colonic diverticulosis, prostatomegaly with evidence of chronic bladder outlet obstruction. ECG, normal sinus rhythm at a rate of 72, T wave inversion in inferior leads? ASSESSMENT AND PLAN: This is a 71-year-old male who presents with hematuria, possible urinary tract infection. 1. Hematuria, possible urinary tract infection, elevated leukocytes, poor appetite, not feeling well: Continue Rocephin. Follow the cultures. 2. Hematuria, we will follow labs. Holding eliquis.. and will consult urology in a.m. for further recommendations. 2. Acute kidney injury. Creatinine 1.56. Baseline creatinine is around 1.2 Gentle fluids. Avoid nephrotoxic agents. We will follow the repeat labs. 3. History of recurrent deep venous thrombosis: The patient says has deep venous thrombosis in the past, but not recently in the last 6 months. Holding the Eliquis for hematuria. To restart as soon as possible. 4. History of cerebrovascular accident: On aspirin and statin. Holding Eliquis as above. 5. History of hypertension: On amlodipine and propranolol. We will monitor the blood pressure. 6. Type 2 diabetes: Holding metformin, insulin sliding scale, diabetic diet. 7. Abnormal ekg? will follow serial ce and repeat ekg. asymtomatic 8. Deep venous thrombosis prophylaxis: Sequential compression devices for now. Holding Eliquis. DISPOSITION: Closely monitor in the med tele. PT/OT prior to discharge. Social service to help with discharge planning. Job ID: [id number] [facility]
[2022-08-04 05:09] LABS: Basophils # (auto) 0.05 K/uL (0-0.2); Basophils % (auto) 0.6 %; Eosinophils # (auto) 0.16 K/uL (0-0.50); Eosinophils % (auto) 1.9 %; Hematocrit (blood only) 30.5 % (40.1-51.0); Hemoglobin 10.8 g/dl (14.0-18.0); Immature Granulocytes # (auto) 0.13 K/uL (0.00-0.02); Immature Granulocytes % (auto) 1.6 %; Lymphocytes # (auto) 1.56 K/uL (1.2-3.4); Mean Corpuscular Hemoglobin 30.4 pg (25.0-34.0); Mean Corpuscular Hgb Conc 35.4 g/dL (32.0-36.0); Mean Corpuscular Volume 85.9 fL (80.0-100.0); Mean Platelet Volume 9.6 fL (9.4-12.4); Monocytes # (auto) 0.72 K/uL (0.24-0.82); Monocytes % (auto) 8.8 %; Neutrophils # (auto) 5.59 K/uL (1.4-6.5); Neutrophils % (auto) 68.1 %; Platelet Count 164 K/uL (130-400); RDW Coefficient of Variation 13.7 % (11.5-14.5); RDW Standard Deviation 43.1 fL (36.4-46.3); Red Blood Count 3.55 M/uL (4.63-6.08); White Blood Count 8.21 K/ul (4.8-10.8)
[2022-08-04 05:36] LABS: BUN Creatinine Ratio 27.5 (10-20); Calcium 8.4 mg/dl (8.5-10.1); Creatinine Clr Calc Pharmacy 52.9 ml/min; Est GFR (African American) 62.2 ml/min; Est GFR (Non-African American) 53.6 ml/min; Magnesium 1.6 mg/dl (1.7-2.4); Potassium 3.6 mmol/L (3.5-5.1)
[2022-08-04 06:43] LABS: Estimated Average Glucose 171 mg/dl; Hemoglobin A1C 7.6 % (4.5-5.6)
[2022-08-04] MEDS: amLODIPine BESYLATE 5 MG TAB PO SCH (09:25)
[2022-08-04] MEDS: FERROUS SULFATE 325 MG TAB PO SCH ×2 (09:28→20:59)
[2022-08-04] MEDS: ASPIRIN 81 MG ECTAB PO SCH (09:28)
[2022-08-04] MEDS: FINASTERIDE 5 MG TAB PO SCH (09:28)
[2022-08-04] MEDS: GABAPENTIN 300 MG CAP PO SCH ×4 (09:29→20:59)
[2022-08-04] MEDS: PROPRANOLOL HCL 10 MG TAB PO SCH ×2 (09:29→20:58)
[2022-08-04] MEDS: INSULIN ASPART PER UNIT SC SCH ×4 (09:39→21:00)
--- NOTE | 2022-08-04 14:58 | Urology Progress Note ---
Date of Service August 04, 2022 Assessment & Plan (1) Hematuria: Plan: - Follow-up of hematuria. - Patient subjectively doing well. - Continues to have hematuria, but voiding without difficulty. - He is afebrile, hemodynamically stable. - Lab work reviewedcreatinine 1.31, WBC 8.21, Hgb 10.8 - continue to trend. - Preliminary urine culture showing pinpoint growth present, reincubating. - Continue antibiotics and follow cultures - can narrow per sensitivities when available. - As long as he is able to void, he does not require catheterization or further intervention at this time. - Continue supportive care and monitoring. - Additional recommendations pending his clinical course, may need cystoscopy for further evaluation of hematuria. - will follow. Admission and Anticipated Discharge Date Admission Date: August 03, 2022 Subjective Patient seen and examined at bedside. He is asleep upon my arrival, arouses easily to his name. He denies flank, abdominal or suprapubic pain. Voiding spontaneously without difficulty. No dysuria. He reports ongoing chris red urine, no clots. No nausea or vomiting. No fever or chills. Review of Systems Constitutional: as per Subjective / HPI Gastrointestinal: as per Subjective / HPI Genitourinary: + as per Subjective / HPI Physical Exam Constitutional: well developed and well nourished; no acute distress Respiratory: normal respiratory effort; no respiratory distress and no labored breathing Gastrointestinal (Abdomen): Inspection/Auscultation: abdomen normal to inspection; abdomen not distended Psychiatric: Orientation: alert and oriented x 3 Results & Data ([facility]) Vital Signs (Past 12 Hours) Vital Signs Temp Pulse Pulse Resp BP Pulse Ox O2 Del Method 08/04/22 13:46 62 08/04/22 13:19 36.9 C 94 H 18 159/72 H 98 Room Air 08/04/22 05:15 70 16 119/73 93 Room Air PG Care Time/CCT Total # of Minutes Spent Total Time Spent with Patient: Total time spent is greater than 50% in coordination of care (as documented) at patient's floor/unit and/or counseling patient: Coding Level of Care Code 93048 SUB INP/OBS CARE 2/35MIN Diagnoses Hematuria R31.9
--- NOTE | 2022-08-04 15:52 | Electrocardiogram Report ---
Test Reason : Blood Pressure : / mmHG Vent. Rate : 096 BPM Atrial Rate : 097 BPM P-R Int : 142 ms QRS Dur : 074 ms QT Int : 348 ms P-R-T Axes : 064 -06 052 degrees QTc Int : 439 ms Poor data quality, interpretation may be adversely affected Normal sinus rhythm Normal ECG When compared with ECG of 30-AUG-2021 11:46, No significant change was found Confirmed by Aidan Powell ([id number]) on 08/04/2022 3:52:03 PM Referred By: Keo Patrick Confirmed By:Aidan Powell
--- NOTE | 2022-08-04 15:53 | Electrocardiogram Report ---
Test Reason : Blood Pressure : / mmHG Vent. Rate : 072 BPM Atrial Rate : 072 BPM P-R Int : 148 ms QRS Dur : 072 ms QT Int : 390 ms P-R-T Axes : 070 -14 004 degrees QTc Int : 427 ms Poor data quality, interpretation may be adversely affected Normal sinus rhythm Normal ECG When compared with ECG of 03-AUG-2022 16:42, (unconfirmed) T wave inversion now evident in Inferior leads Confirmed by Aidan Powell ([id number]) on 08/04/2022 3:53:34 PM Referred By: Keo Patrick Confirmed By:Aidan Powell
--- NOTE | 2022-08-04 16:01 | Electrocardiogram Report ---
Test Reason : Blood Pressure : / mmHG Vent. Rate : 061 BPM Atrial Rate : 061 BPM P-R Int : 152 ms QRS Dur : 086 ms QT Int : 436 ms P-R-T Axes : 051 -02 030 degrees QTc Int : 438 ms Normal sinus rhythm Normal ECG When compared with ECG of 03-AUG-2022 19:25, (unconfirmed) No significant change was found Confirmed by Aidan Powell ([id number]) on 08/04/2022 4:01:41 PM Referred By: Keo Patrick Confirmed By:Aidan Powell
--- NOTE | 2022-08-04 19:01 | Communication Note ---
Date of Service: August 04, 2022 Patient admitted today for weakness and hematuria. Found to have UTI. Currently on Ceftriaxone. Appreciate Urology input Full note to follow in AM
[2022-08-04] MEDS: ATORVASTATIN 40 MG TAB PO SCH (20:59)
[2022-08-05] MEDS: cefTRIAXone SODIUM 2,000 MG in DEXTROSE 5% 50 ML IV SCH (01:31)
[2022-08-05 08:20] LABS: Hematocrit (blood only) 32.1 % (40.1-51.0); Mean Corpuscular Hemoglobin 30.1 pg (25.0-34.0); Mean Corpuscular Hgb Conc 34.3 g/dL (32.0-36.0); Mean Corpuscular Volume 87.7 fL (80.0-100.0); Mean Platelet Volume 9.7 fL (9.4-12.4); Platelet Count 178 K/uL (130-400); RDW Coefficient of Variation 13.8 % (11.5-14.5); RDW Standard Deviation 43.8 fL (36.4-46.3); Red Blood Count 3.66 M/uL (4.63-6.08); White Blood Count 7.04 K/ul (4.8-10.8)
[2022-08-05 08:41] LABS: BUN Creatinine Ratio 23.1 (10-20); Creatinine Clr Calc Pharmacy 53.4 ml/min; Est GFR (African American) 62.7 ml/min; Est GFR (Non-African American) 54.1 ml/min; Potassium 3.8 mmol/L (3.5-5.1)
[2022-08-05] MEDS: INSULIN ASPART PER UNIT SC SCH ×4 (08:48→20:43)
[2022-08-05] MEDS: GABAPENTIN 300 MG CAP PO SCH ×4 (08:51→20:32)
[2022-08-05] MEDS: PROPRANOLOL HCL 10 MG TAB PO SCH ×2 (08:51→20:32)
[2022-08-05] MEDS: amLODIPine BESYLATE 5 MG TAB PO SCH (08:51)
[2022-08-05] MEDS: FERROUS SULFATE 325 MG TAB PO SCH ×2 (08:51→20:33)
[2022-08-05] MEDS: FINASTERIDE 5 MG TAB PO SCH (08:52)
[2022-08-05] MEDS: ASPIRIN 81 MG ECTAB PO SCH (08:52)
--- NOTE | 2022-08-05 10:20 | Hospitalist Progress Note ---
Date of Service August 05, 2022 Assessment & Plan (1) MAGY (acute kidney injury): (2) Hematuria: (3) UTI (urinary tract infection): Plan Hematuria -Likely from UTI -CT A/P shows improved kidney stone burden with one remaining stone on right UTI -continue ceftriaxone -Urine culture pending MAGY -Cr improved but on exam still appears dehydrated -resume NSS at 80 cc/hr, repeat BMP tomorr History of recurrent deep venous thrombosis - The patient says has deep venous thrombosis in the past, but not recently in the last 6 months. Holding the Eliquis for hematuria. To restart as soon as possible. History of cerebrovascular accident -On aspirin and statin. H History of hypertension: -On amlodipine and propranolol. We will monitor the blood pressure. Type 2 diabetes: - Holding metformin, insulin sliding scale, diabetic diet. Abnormal ekg will follow serial ce and repeat ekg. asymtomatic Deep venous thrombosis prophylaxis -SCD ordered. Eliquis on Hold. With resolution of hematuria will start heparin SQ Admission and Anticipated Discharge Date Admission Date: August 03, 2022 Subjective Just one episode of hematuria but urine since then has cleared up. Urine is still very dark Appetite is improved Remains afebrile Physical Exam Physical Exam: No acute distress, non toxic ENMT: Mucous membrane dry, normocephalic, atraumatic Respiratory: Breathing comfortably on room air, no wheezing/rhonchi Cardiovascular: Regular rate and rhythm, no murmurs/rubs Gastrointestinal (Abdomen): Soft, non tender, non distended Musculoskeletal: No edema Neurologic: awake, alert, spontaneously moving extremities Results & Data Results & Data ([facility]) Vital Signs (Past 12 Hours) Vital Signs Temp Pulse Pulse Resp BP BP Pulse Ox 08/05/22 08:00 08/05/22 07:23 63 08/05/22 07:23 36.5 C 63 17 160/86 H 95 08/05/22 03:22 36.4 C L 53 L 20 165/85 H 95 08/04/22 23:42 61 08/04/22 23:28 36.4 C L 62 18 148/85 H 97 O2 Del Method 08/05/22 08:00 Room Air 08/05/22 07:23 08/05/22 07:23 Room Air 08/05/22 03:22 Room Air 08/04/22 23:42 08/04/22 23:28 Room Air
[2022-08-05] MEDS: SODIUM CHLORIDE 0.9% 1000ML 1,000 ML IV SCH ×2 (11:16→23:27)
[2022-08-05] MEDS: HEPARIN SOD 5,000 UNIT/0.5 ML VIAL SQ SCH (20:32)
[2022-08-05] MEDS: ATORVASTATIN 40 MG TAB PO SCH (20:33)
[2022-08-06] MEDS: cefTRIAXone SODIUM 2,000 MG in DEXTROSE 5% 50 ML IV SCH (01:49)
[2022-08-06 08:04] LABS: Hematocrit (blood only) 32.1 % (40.1-51.0); Hemoglobin 11.1 g/dl (14.0-18.0); Mean Corpuscular Hemoglobin 30.6 pg (25.0-34.0); Mean Corpuscular Hgb Conc 34.6 g/dL (32.0-36.0); Mean Corpuscular Volume 88.4 fL (80.0-100.0); Mean Platelet Volume 9.8 fL (9.4-12.4); Platelet Count 162 K/uL (130-400); RDW Coefficient of Variation 13.7 % (11.5-14.5); RDW Standard Deviation 44.2 fL (36.4-46.3); Red Blood Count 3.63 M/uL (4.63-6.08); White Blood Count 6.58 K/ul (4.8-10.8)
[2022-08-06 08:23] LABS: BUN Creatinine Ratio 19.3 (10-20); Calcium 7.6 mg/dl (8.5-10.1); Est GFR (African American) 73.5 ml/min; Est GFR (Non-African American) 63.4 ml/min; Potassium 4.1 mmol/L (3.5-5.1)
[2022-08-06] MEDS: INSULIN ASPART PER UNIT SC SCH ×2 (09:05→12:36)
[2022-08-06] MEDS: GABAPENTIN 300 MG CAP PO SCH ×2 (09:06→11:55)
[2022-08-06] MEDS: FINASTERIDE 5 MG TAB PO SCH (09:06)
[2022-08-06] MEDS: amLODIPine BESYLATE 5 MG TAB PO SCH (09:06)
[2022-08-06] MEDS: FERROUS SULFATE 325 MG TAB PO SCH (09:06)
[2022-08-06] MEDS: ASPIRIN 81 MG ECTAB PO SCH (09:06)
[2022-08-06] MEDS: HEPARIN SOD 5,000 UNIT/0.5 ML VIAL SQ SCH (09:07)
[2022-08-06] MEDS: PROPRANOLOL HCL 10 MG TAB PO SCH (09:07)
--- NOTE | 2022-08-06 11:12 | Discharge Summary ---
Date of Service August 06, 2022 Principal Diagnosis Hematuria MAGY Discharge Exam Appears well. No acute distress Respiratory Breathing comfortably on room air, no wheezing/rhonchi/rales Cardiovascular Regular rate and rhythm, no murmurs/rubs/gallops Gastrointestinal (Abdomen) Soft, non tender Musculoskeletal No edema Discharge Data Allergies Allergy/AdvReac Type Severity Reaction Status Date / Time No Known Allergies Allergy Verified 08/03/22 19:14 Consultations 08/03/22 21:26 ED Decision to Admit Stat 08/04/22 08:00 Consult Urology Routine Ordered Studies 08/03/22 17:41 CT abd pelvis wo con Stat CT head/brain wo con Stat Hospital Course (1) MAGY (acute kidney injury): (2) Hematuria: (3) UTI (urinary tract infection): Plan Hematuria -CT A/P shows improved kidney stone burden with one remaining stone on right -Received ceftriaxone while for presumed UTI. Urine culture was negative (polymicrobial growth) and ceftriaxone was discontinued -Patient was seen by Urology while here and will need to follow up after discharge MAGY -received 2 days of IV fluid. -Cr back to baseline -Patient tolerating oral intake at time of discharge History of recurrent deep venous thrombosis - The patient with history of deep venous thrombosis in the past, but not recently in the last 6 months.Eliquis held on admission due to hematuria. Hematuria resolved and eliquis can be resumed at discharge History of cerebrovascular accident -On aspirin and statin. History of hypertension: -On amlodipine and propranolol. BP normotensive Type 2 diabetes: - Resume metformin at discharge Total Time Total Time Spent Total Time Spent (In Minutes): 35 Discharge Plan Discharge Items Patient Disposition: Home - Self-Care Reason For Visit: HEMATURIA Discharge Diagnosis: Hematuria MAGY Condition on Discharge: Good Activity: Resume your previous activity Non-emergency contact: Primary Care Provider and Urologist Call non-emergency contact if: you have any medication questions Follow-up/Referrals: Keo Patrick DO [Primary Care Provider] - Diet: Regular Addtl Attending Provider Instructions: Please follow up with your PCP. You have a kidney stone on your right side. With your history of blood in your urine, you should follow up with a Urologist for further workup. You were seen by Urology while here. Drink plenty of fluids to stay hydrated Pending Studies at Discharge: No Stand-Alone Forms: My [facility], Smoking Cessation Medications and DC Order Prescriptions: Continued finasteride [Proscar] 5 mg tablet 5 mg PO DAILY Qty: 90 3RF Eliquis 5 mg Tablet 5 mg PO BID 30 Days Qty: 60 3RF amlodipine [Norvasc] 5 mg Tablet 2.5 mg PO QAM Qty: 30 3RF metformin 1,000 mg tablet 1,000 mg PO BIDM ferrous sulfate [FeroSul] 325 mg (65 mg iron) tablet 325 mg PO AMHS propranolol 10 mg tablet 10 mg PO BID gabapentin [Neurontin] 300 mg capsule 300 mg PO QID atorvastatin [Lipitor] 40 mg tablet 40 mg PO HS aspirin [Bong Low Dose Aspirin] 81 mg tablet,delayed release (DR/EC) 81 mg PO QAM Cinnamon Caps 1,200 mg PO TID Discharge Orders: Discharge Order (Routine); Ordered 08/06/22 Ordered By: Heaven Alfredo/Other Patient Handouts: Managing Type 2 Diabetes Admission Data Admit Date/Time: 08/03/22 23:09 Attending Provider: Heaven Young Admit Provider: Andrew Rodriguez Primary Care Provider: Keo Patrick Other Providers: Andrew Rodriguez ; Roel Cobb ; Johnny Guerrero ; Philippe Doyle ; Jennifer Zaldivar ; Curt Singh ; Teresa Thompson Melissa A. ; Montrell Augustine ; Chana Turner ; Sabra Antunez ; David Bucio ; Keo Quevedo
[2022-08-06] MEDS: SODIUM CHLORIDE 0.9% 1000ML 1,000 ML IV SCH (12:01)
== END 2022-08-06 13:06 | disposition home or self-care (01) | DRG 683 ==
LOC: ED 16:31 → EDINP 23:09 → 2N 08-04 01:27
DX: Z87.891 Personal history of nicotine dependence; Z86.718 Personal history of other venous thrombosis and embolism; N39.0 Urinary tract infection, site not specified; Z86.711 Personal history of pulmonary embolism; I69.398 Other sequelae of cerebral infarction; N40.0 Benign prostatic hyperplasia without lower urinary tract symptoms; E11.9 Type 2 diabetes mellitus without complications; R31.9 Hematuria, unspecified; N20.0 Calculus of kidney; Z79.84 Long term (current) use of oral hypoglycemic drugs; I69.354 Hemiplegia and hemiparesis following cerebral infarction affecting left non-dominant side; Z79.82 Long term (current) use of aspirin; Z83.3 Family history of diabetes mellitus; E86.0 Dehydration; N17.9 Acute kidney failure, unspecified

== ENCOUNTER 2022-08-23 09:00 | Inpatient (IN) ==
--- NOTE | 2022-08-23 12:09 | XRay Report ---
XR chest 1V portable CLINICAL HISTORY: Atypical chest pain. COMPARISON STUDY: Chest 08/03/2022. FINDINGS: The lungs are clear. The heart is normal in size. No pleural effusions. No pneumothorax. Pu nctate metallic fragment again noted within the left lateral chest wall. IMPRESSION: No significant change compared to the prior study. No acute process within the chest. ACT 112: Negative or not required by law. Electronically signed by: Deshawn Montesinos M.D. 08/23/2022 10:06 AM
[2022-08-23] MEDS ORDERED: ASPIRIN 325 MG ECTAB PO ONE (12:40)
--- NOTE | 2022-08-23 12:44 | Emergency Department Note ---
Impression & Plan Weakness ED Provider Note INFORMANT: Patient ED PROVIDER(S): Dionicio Moncada DO CHIEF COMPLAINT: Weakness shortness of breath PLAN: Disposition: Admission Condition: Stable Outpatient prescription management: None Referral: I spoke with the hospitalist, who will see the patient for admission/observation and further evaluation and consultation. MEDICAL DECISION MAKING: This is a 71-year-old male who presents to the ED with a chief complaint of generalized weakness. The patient states that he finished some antibiotics for urinary tract infection last week. He over the past several days has noticed increased weakness, decreased p.o. intake and poor appetite. He also reports some shortness of breath. He states that today he was supposed to go see his PCP but when he got out of bed he was too weak and laid on the floor. He cannot get up. EMS brought him here for evaluation. This occurred around 7 AM. He denies any injuries. The patient states that a few days ago he slipped off the toilet and could not get up and his friends helped him up because of his weakness. The patient has no other specific complaints at this time. He is chronically on Eliquis. The patient CBC did not show any significant anemia or leukocytosis. His BUN and creatinine are elevated with a BUN of 33 and a creatinine of 2.12. Baseline creatinine is 1.58. Troponin is elevated suggesting myocardial ischemia. Twelve-lead EKG shows a sinus rhythm at a rate of [address] elevation or depression. The patient was treated with IV fluids during his ED stay. He was told the results. He will be seen by the hospitalist for further evaluation and care due to his abnormalities. The patient is not having any chest pain or shortness of breath at this time. He is chronically on Eliquis and aspirin. He did not take his dose of Eliquis or aspirin this morning. He was administered p.o. Eliquis and 324 mg of aspirin. Triage Nursing notes reviewed. Vital Signs: reviewed Prior /Outside records reviewed: none Differential diagnosis: Differential includes acute coronary syndrome, myocardial infarction, CVA, TIA, anemia, infection, pneumonia, UTI, pyelonephritis, poor nutrition, dehydration, electrolyte disturbance,hypoglycemia. Diagnostics, as interpreted by me: 12 lead ECG: Sinus tachycardia rate of 106. No ST elevation. No PVCs. Normal QTC. Cardiac Monitoring: none Medical decision rules: none Imaging studies: Chest x-ray: No acute disease. No pneumonia or pneumothorax. Procedures: none. Critical care: none. HPI: See MDM above. PAST MEDICAL HISTORY: See Below PAST SURGICAL HISTORY: See Below SOCIAL HISTORY: See Below HOME MEDICATIONS: See Below ALLERGIES: See Below VITALS: See Below PHYSICAL EXAMINATION: CONSTITUTIONAL/VITAL SIGNS: Reviewed GENERAL: Non-toxic in appearance. INTEGUMENTARY: Warm, dry, and [place]. HEAD: Normocephalic. EYES: without scleral icterus. ENT/OROPHARYNX: clear and moist. RESPIRATORY: No increased work of breathing. Lungs clear. CARDIOVASCULAR: Regular rate. Regular rhythm. GI/ABDOMEN: Soft and nontender. . EXTREMITIES: Normal NEUROLOGICAL: Intact without focal deficits. PSYCHIATRIC: Normal affect. MUSCULOSKELETAL: Normal. TRIAGE NURSING DOCUMENTATION REVIEWED. 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, residual mild weakness and short- term memory impairment Surgical History H/O colonoscopy History of back surgery No hardware History of cystoscopy Cystoscopy, left retropyelogram, Left ureteral stent placement (03/30/21): LMA#4 at [facility] History of tympanoplasty of right ear Status post appendectomy Family History Uncle Family history of diabetes mellitus Other Heart disease Social History Smoking Status: Former smoker Tobacco Type: Cigarettes Second Hand Exposure: Yes (FRIEND'S SPOUSE SMOKES-STAYING AT THEIR HOUSE CURRENTLY); Hx Alcohol Use: No Hx Substance Use: No Preferred Language: Occitan Communication Ability: Effective [employer] Delivery Driver Required: No Beliefs That Will Affect Care: None marital status: / Current Living Situation: Other current occupation: NOT WORKING How many Children do You have: 0 Feels Safe at Home: Yes Assistive Devices: None Allergies Allergies Allergy/AdvReac Type Severity Reaction Status Date / Time No Known Allergies Allergy Verified 08/03/22 19:14 Home Meds Home Medications Medication Instructions Recorded Confirmed metformin 1,000 mg tablet 1,000 mg PO BIDM 02/12/21 08/03/22 aspirin 81 mg tablet,delayed 81 mg PO QAM 03/29/21 08/03/22 release (Bong Low Dose Aspirin) atorvastatin 40 mg tablet (Lipitor) 40 mg PO HS 03/29/21 08/03/22 gabapentin 300 mg capsule 300 mg PO QID 03/29/21 08/03/22 (Neurontin) ferrous sulfate 325 mg (65 mg 325 mg PO AMHS 06/27/21 08/03/22 iron) tablet (FeroSul) propranolol 10 mg tablet 10 mg PO BID 07/28/22 08/03/22 Cinnamon Caps 1,200 mg PO TID 08/03/22 08/03/22 Previous Rx's Medication Instructions Recorded amlodipine 5 mg tablet (Norvasc) 2.5 mg PO QAM #30 tabs 02/02/21 apixaban 5 mg tablet (Eliquis) 5 mg PO BID 30 days #60 tabs 02/02/21 finasteride 5 mg tablet (Proscar) 5 mg PO DAILY #90 tabs 01/24/22 Results & Data (ED) Vital Signs Vital Signs - 24 hr 08/23/22 11:45 08/23/22 11:53 08/23/22 11:55 Temperature 37.5 C Temperature Source Oral Pulse Rate [Apical] 83 Respiratory Rate 14 Blood Pressure [Left Arm] 114/82 Blood Pressure Mean [Left Arm] 92 Pulse Oximetry 94 Oxygen Delivery Method Room Air Room Air Sepsis New/Unexplained Change in Mental Status No Sepsis Action Taken by Nursing No Action Required Discharge Plan Visit Data Chief Complaint: Weakness Stated Complaint: weakness ED Provider: Dionicio Moncada Discharge Problem: Weakness Patient Disposition: Being Evaluated by Hospitalist Forms Stand Alone Forms: My [facility] Prescriptions Prescriptions: No Action finasteride [Proscar] 5 mg tablet 5 mg PO DAILY Qty: 90 3RF Eliquis 5 mg Tablet 5 mg PO BID 30 Days Qty: 60 3RF amlodipine [Norvasc] 5 mg Tablet 2.5 mg PO QAM Qty: 30 3RF metformin 1,000 mg tablet 1,000 mg PO BIDM ferrous sulfate [FeroSul] 325 mg (65 mg iron) tablet 325 mg PO AMHS propranolol 10 mg tablet 10 mg PO BID gabapentin [Neurontin] 300 mg capsule 300 mg PO QID atorvastatin [Lipitor] 40 mg tablet 40 mg PO HS aspirin [Bong Low Dose Aspirin] 81 mg tablet,delayed release (DR/EC) 81 mg PO QAM Cinnamon Caps 1,200 mg PO TID Referrals Referrals: Keo Patrick DO [Primary Care Provider] -
[2022-08-23 12:45] LABS: Alanine Aminotransferase 18 U/L (7-52); Albumin Level 4.1 gm/dl (3.4-5.0); Blood Urea Nitrogen 33 mg/dl (6-23); Potassium 4.7 mmol/L (3.5-5.1); Sodium 130 mmol/L (136-145)
[2022-08-23] MEDS ORDERED: APIXABAN 5 MG TABLET PO SCH (12:45)
[2022-08-23 13:07] LABS: Prothrombin Time 10.7 Seconds (9.0-12.0)
[2022-08-23 13:27] LABS: Influenza A virus by PCR Negative (Neg); Influenza B virus by PCR Negative (Neg); RSV by PCR Negative (Neg); SARS CoV2 RNA(COVID-19) Ceph NEGATIVE (Negative)
[2022-08-23 13:40] LABS: Basophils # (auto) 0.08 K/uL (0-0.2); Basophils % (auto) 0.8 %; Eosinophils # (auto) 0.14 K/uL (0-0.50); Eosinophils % (auto) 1.4 %; Hemoglobin 11.7 g/dl (14.0-18.0); Immature Granulocytes # (auto) 0.07 K/uL (0.00-0.02); Immature Granulocytes % (auto) 0.7 %; Lymphocytes # (auto) 0.51 K/uL (1.2-3.4); Lymphocytes % (auto) 5.1 %; Mean Corpuscular Hemoglobin 30.7 pg (25.0-34.0); Mean Corpuscular Hgb Conc 35.5 g/dL (32.0-36.0); Mean Corpuscular Volume 86.6 fL (80.0-100.0); Mean Platelet Volume 10.2 fL (9.4-12.4); Monocytes # (auto) 1.08 K/uL (0.24-0.82); Monocytes % (auto) 10.8 %; Neutrophils # (auto) 8.11 K/uL (1.4-6.5); Neutrophils % (auto) 81.2 %; Platelet Count 155 K/uL (130-400); RDW Standard Deviation 46.7 fL (36.4-46.3); Red Blood Count 3.81 M/uL (4.63-6.08); White Blood Count 9.99 K/ul (4.8-10.8)
[2022-08-23 14:26] LABS: Albumin Globulin Ratio 1.4 (0.9-2); Alkaline Phosphatase 80 U/L (34-104); Anion Gap 12 (3-11); Aspartate Aminotransferase 31 U/L (13-39); BUN Creatinine Ratio 15.3 (10-20); Bilirubin,Total 0.9 mg/dl (0.2-1.0); Calcium 9.2 mg/dl (8.5-10.1); Carbon Dioxide 20 mmol/L (21-32); Chloride 98 mmol/L (98-107); Est GFR (African American) 34.1 ml/min; Est GFR (Non-African American) 29.5 ml/min; Globulin 2.9 gm/dl (2.5-4.0); Glucose 245 mg/dl (70-99(Fasting))
--- NOTE | 2022-08-23 14:48 | History & Physical Report ---
Date of Service August 23, 2022 Assessment & Plan (1) Weakness: (2) MAGY (acute kidney injury): Plan: Admit to telemetry Patient presenting from home with reports of generalized weakness and fall x 2. As an outpatient, patient underwent cystoscopy on 08/14 for evaluation of hematuria. Patient was placed on prophylactic Bactrim for 1 week. ? if this causes GI upset leading to poor p.o. intake, dehydration and subsequent MAGY Urine culture from 08/14 no growth UA pending IVF, follow renal functions PT/OT (3) Elevated troponin: Plan: HS trop 549, no acute ST changes on EKG Patient reporting mild shortness of breath, denies chest pain Continue to trend troponin, resting echo Consider cardiology consult (4) History of DVT (deep vein thrombosis): (5) Pulmonary embolism: Plan: On Eliquis, continue (6) History of stroke: Plan: Continue ASA and statin (7) Hypertension: Plan: BP controlled, continue amlodipine (8) Diabetes mellitus, type 2: Plan: Recent Hgb A1c 7.6 Hold metformin, utilize NovoLog per protocol while hospitalized (9) BPH (benign prostatic hypertrophy): Plan: Continue finasteride and tamsulosin DVT PROPHYLAXIS On Eliquis I spent a total of 45 minutes coordinating, documenting, and providing care for this patient excluding time spent in the performance of separately billed services. This included personally reviewing all current laboratories and imaging studies, medication reconciliation, outpatient chart review, and discussion with specialists. History of Present Illness Chief Complaint: Generalized weakness Primary Care Provider: Keo Patrick DO 71-year-old male with PMH DM type II, dyslipidemia, history of DVT and PE on Eliquis, HTN, history of CVA, BPH, renal calculi, and other problems listed below who presents to the ED for evaluation of generalized weakness. Patient recently admitted to [facility] 08/04 through 08/06 for hematuria and MAGY. Patient underwent cystoscopy on 08/14/2022. There was no evidence of tumor however there was evidence of bladder outlet obstruction and possible persistent UTI. Urine culture was obtained that showed no growth. Patient was placed on 7 days of empiric Bactrim. Patient reports that 3 days ago, he developed poor appetite and generalized weakness. He has had some intermittent nausea however no vomiting. Denies abdominal pain. Hematuria has resolved. He has had 2 falls in the past 3 days. This morning, while patient was getting out of bed, he reports his legs were very weak and he slid to the ground. He denies loss of consciousness or striking his head. No fevers or chills. Denies lightheadedness, dizziness, diaphoresis, syncopal events. Reports mild shortness of breath at rest which is new for him. No chest pain or palpitations. Denies dysuria. In the ED, patient is hemodynamically stable. Labs show Na+ 130, creatinine 2.1, troponin 549. EKG without acute ST changes. UA pending. Patient was given IVF and full dose aspirin. Allergies Allergy/AdvReac Type Severity Reaction Status Date / Time No Known Allergies Allergy Verified 08/23/22 12:42 Home Medications Medication Instructions Recorded Confirmed Type amlodipine 5 mg tablet (Norvasc) 2.5 mg PO QAM #30 tabs 02/02/21 08/23/22 Rx apixaban 5 mg tablet (Eliquis) 5 mg PO BID 30 days #60 tabs 02/02/21 08/23/22 Rx metformin 1,000 mg tablet 1,000 mg PO BIDM 02/12/21 08/23/22 History aspirin 81 mg tablet,delayed 81 mg PO QAM 03/29/21 08/23/22 History release (Bong Low Dose Aspirin) atorvastatin 40 mg tablet (Lipitor) 40 mg PO HS 03/29/21 08/23/22 History gabapentin 300 mg capsule 300 mg PO TID 03/29/21 08/23/22 History (Neurontin) ferrous sulfate 325 mg (65 mg 325 mg PO AMHS 06/27/21 08/23/22 History iron) tablet (FeroSul) propranolol 10 mg tablet 10 mg PO BID 07/28/22 08/23/22 History Cinnamon Caps 1,200 mg PO TID 08/03/22 08/23/22 History finasteride 5 mg tablet 5 mg PO DAILY 08/23/22 08/23/22 History tamsulosin 0.4 mg capsule 0.4 mg PO QAM 08/23/22 08/23/22 History Past Med/Surg History Medical History (Updated 08/23/22 @ 14:54 by JEFF Bone) Anemia BPH (benign prostatic hypertrophy) Diabetes mellitus, type 2 NIDDM Dyslipidemia History of DVT (deep vein thrombosis) 1994- on Eliquis Hydronephrosis with urinary obstruction due to ureteral calculus Kidney stones Pulmonary embolism 1994- on Eliquis Stroke 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 ischemic stroke, residual mild weakness and short- term memory impairment Surgical History H/O colonoscopy History of back surgery No hardware History of cystoscopy Cystoscopy, left retropyelogram, Left ureteral stent placement (03/30/21): LMA#4 at [facility] History of tympanoplasty of right ear Status post appendectomy Family History Uncle Family history of diabetes mellitus Other Heart disease Social History Smoking Status: Former smoker Tobacco Type: Cigarettes Second Hand Exposure: Yes (FRIEND'S SPOUSE SMOKES-STAYING AT THEIR HOUSE CURRENTLY); Hx Alcohol Use: No Hx Substance Use: No Preferred Language: Singaporean Communication Ability: Effective Lmsw Required: No Beliefs That Will Affect Care: None marital status: / Current Living Situation: Other current occupation: NOT WORKING How many Children do You have: 0 Feels Safe at Home: Yes Assistive Devices: None Review of Systems Review of Systems: ROS per HPI, all other systems reviewed and negative Physical Exam Constitutional: WD/WN, vitals as above Eyes: PERRL, conjunctivae normal, anicteric sclerae ENMT: external ear and nose normal, oropharynx normal Respiratory: normal respiratory effort, lungs clear to auscultation Cardiovascular: Rate/Rhythm: regular rate and regular rhythm Vessels: normal peripheral pulses Extremities: no edema Gastrointestinal (Abdomen): normal bowel sounds, soft, nontender, no hepatosplenomegaly Musculoskeletal: no cyanosis or clubbing, extremities motor strength 5/5 Skin: no rashes, warm and dry Neurologic: PERRL, EOMI, accommodation nl, no face palsy, no dysarthria Psychiatric: A+Ox3, euthymic affect Results & Data Results & Data ([facility]) Vital Signs (Past 12 Hours) Vital Signs Temp Pulse Resp BP Pulse Ox O2 Del Method 08/23/22 14:00 84 121/67 96 Room Air 08/23/22 13:30 87 14 119/73 97 Room Air 08/23/22 13:00 81 14 122/68 Room Air 08/23/22 12:00 86 14 125/78 97 Room Air 08/23/22 11:55 37.5 C 08/23/22 11:53 Room Air 08/23/22 11:45 83 14 114/82 94 Room Air Laboratory Results Short CBC 08/23/22 Range/Units 09:30 WBC 9.99 (4.8-10.8) K/ul Hgb 11.7 L (14.0-18.0) g/dl Hct 33.0 L (40.1-51.0) % Plt Count 155 (130-400) K/uL BMP 08/23/22 09:30 Sodium 130 L Potassium 4.7 Chloride 98 Carbon Dioxide 20 L BUN 33 H Creatinine 2.15 H Glucose 245 H Calcium 9.2 Liver Function 08/23/22 Range/Units 09:30 Total Bilirubin 0.9 (0.2-1.0) mg/dl AST 31 (13-39) U/L ALT 18 (7-52) U/L Alkaline Phosphatase 80 (34-104) U/L Albumin 4.1 (3.4-5.0) gm/dl Diagnostic Findings Chest X-Ray 08/23/22 00:00 XR chest 1V portable CLINICAL HISTORY: Atypical chest pain. COMPARISON STUDY: Chest 08/03/2022. FINDINGS: The lungs are clear. The heart is normal in size. No pleural effusions. No pneumothorax. Punctate metallic fragment again noted within the left lateral chest wall. IMPRESSION: No significant change compared to the prior study. No acute process within the chest. ACT 112: Negative or not required by law. Electronically signed by: Deshawn Montesinos M.D. 08/23/2022 10:06 AM Code Status & VTE Plan Code Status Patient is a full code as per my discussion with him. Supervising Physician Co-Signing Physician Notes Attending addendum: The patient was seen and examined in emergency room He complains to have weakness more on the left with recent falls No significant injury from falling Denies any chest pain, shortness of breath or palpitation. No abdominal pain nausea and or vomiting. No numbness and tingling involving the extremities My examination Lying in bed comfortably Hemodynamically stable Chest-clear to auscultate bilaterally Heart-S1-S2, regular Abdomen-benign Extremities-negative for any edema VENEER JOINTER-.alert, awake and oriented x3. Generally weak but does not have any focal neurodeficit. Left lower extremity was not weaker compared with right His admission labs, imaging studies and EKG reviewed History of recent cystoscopy on followed by Bactrim for 1 week with anorexia Noted to have dehydration with MAGY and increased troponin secondary Will receive intravenous fluid and PT OT evaluation while in the hospital Agree with assessment and plan as outlined above by Jennifer Dejesus (1) Hypertension Hypertension type: primary hypertension Qualified Code(s): I10 - Essential (primary) hypertension
[2022-08-23] MEDS ORDERED: DEXTROSE 50% 50 ML SYRINGE IV PRN (16:55)
[2022-08-23] MEDS ORDERED: CARBOHYDRATES FOR HYPOGLYCEMIA PO PRN (16:55)
[2022-08-23] MEDS ORDERED: GLUCOSE 40% GEL 15 GM TUBE PO PRN (16:55)
[2022-08-23] MEDS ORDERED: GLUCOSE 10 TAB/TUBE PO PRN (16:55)
[2022-08-23] MEDS ORDERED: GLUCAGON FOR INJ 1 MG VIAL SQ PRN (16:55)
[2022-08-23] MEDS ORDERED: Patient's HEIGHT &/or WEIGHT Needed SCH (17:15)
[2022-08-23] MEDS ORDERED: PNEUMOCOCCAL POLYSACCHARIDES 25 MCG/0.5 ML VIAL/SYR IM ONE (17:35)
[2022-08-23] MEDS: INSULIN ASPART PER UNIT SC SCH ×2 (17:51→22:11)
[2022-08-23] MEDS: SODIUM CHLORIDE 0.9% 1000ML 1,000 ML IV SCH (17:51)
--- NOTE | 2022-08-23 18:04 | Electrocardiogram Report ---
Test Reason : Blood Pressure : / mmHG Vent. Rate : 106 BPM Atrial Rate : 106 BPM P-R Int : 142 ms QRS Dur : 084 ms QT Int : 314 ms P-R-T Axes : 056 -20 056 degrees QTc Int : 417 ms Sinus tachycardia Otherwise normal ECG When compared with ECG of 04-AUG-2022 08:56, Vent. rate has increased BY 45 BPM Confirmed by Philippe Owusu ([id number]) on 08/23/2022 6:04:21 PM Referred By: REFERRED SELF Confirmed By:Jayson Owusu
[2022-08-23 18:48] LABS: Appearance Urine Clear (Clear); Bacteria Urine Automated Negative (Negative); Bilirubin Urine Negative (Negative); Blood Urine 3+ (Negative); Color Urine Yellow; Glucose Urine UA Negative (Negative); Ketones Urine Negative (Negative); Leukocyte Esterase Urine Negative (Negative); Nitrite Urine Negative (Negative); Protein Urine 1+ (Negative); Specific Gravity Urine 1.018 (1.000-1.030); Urobilinogen Urine Negative (Negative); pH Urine 5.5 (4.5-7.5)
[2022-08-23] MEDS ORDERED: PROMETHAZINE HCL 12.5 MG in SODIUM CHLORIDE 0.9% 50 ML IV PRN (19:40)
[2022-08-23] MEDS: PANTOprazole 40 MG TAB PO SCH (21:31)
[2022-08-23] MEDS: PROPRANOLOL HCL 10 MG TAB PO SCH (21:32)
[2022-08-23] MEDS: ATORVASTATIN 40 MG TAB PO SCH (21:32)
[2022-08-23] MEDS: GABAPENTIN 300 MG CAP PO SCH (21:32)
[2022-08-23] MEDS: APIXABAN 5 MG TABLET PO SCH (21:33)
[2022-08-23] MEDS: FERROUS SULFATE 325 MG TAB PO SCH (21:33)
[2022-08-24] MEDS: ACETAMINOPHEN 325 MG TAB PO PRN ×2 (03:30→10:15)
[2022-08-24 04:07] LABS: Hematocrit (blood only) 29.1 % (42.0-52.0); Hemoglobin 10.3 g/dl (14.0-18.0); Mean Corpuscular Hemoglobin 30.8 pg (25.0-34.0); Mean Corpuscular Hgb Conc 35.4 g/dL (32.0-36.0); Mean Corpuscular Volume 87.1 fL (80.0-100.0); Mean Platelet Volume 9.5 fL (9.4-12.4); Platelet Count 142 K/uL (130-400); RDW Coefficient of Variation 14.9 % (11.5-14.5); Red Blood Count 3.34 M/uL (4.70-6.10); White Blood Count 8.68 K/ul (4.8-10.8)
[2022-08-24 04:18] LABS: BUN Creatinine Ratio 15.7 (10-20); Calcium 8.3 mg/dl (8.5-10.1); Creatinine Clr Calc Pharmacy 38.9 ml/min; Est GFR (African American) 42.9 ml/min; Potassium 4.3 mmol/L (3.5-5.1)
[2022-08-24] MEDS: SODIUM CHLORIDE 0.9% 1000ML 1,000 ML IV SCH ×2 (04:18→15:01)
[2022-08-24 04:44] LABS: Appearance Urine Cloudy (Clear); Bacteria Urine Automated Negative (Negative); Bilirubin Urine Negative (Negative); Blood Urine Trace (Negative); Color Urine Yellow; Glucose Urine UA Negative (Negative); Ketones Urine Negative (Negative); Leukocyte Esterase Urine Negative (Negative); Nitrite Urine Negative (Negative); Protein Urine 1+ (Negative); Specific Gravity Urine 1.016 (1.000-1.030); Urobilinogen Urine Negative (Negative)
[2022-08-24] MEDS: INSULIN ASPART PER UNIT SC SCH ×4 (08:37→21:19)
[2022-08-24] MEDS ORDERED: amLODIPine BESYLATE 5 MG TAB PO SCH (09:00)
[2022-08-24] MEDS ORDERED: PIPERACILLIN/TAZOBACTAM 4.5 GM in DEXTROSE 5% 100 ML IV ONE (09:00)
--- NOTE | 2022-08-24 09:12 | Electrocardiogram Report ---
Test Reason : Blood Pressure : / mmHG Vent. Rate : 080 BPM Atrial Rate : 080 BPM P-R Int : 142 ms QRS Dur : 080 ms QT Int : 358 ms P-R-T Axes : 067 -01 043 degrees QTc Int : 412 ms Normal sinus rhythm Normal ECG When compared with ECG of 23-AUG-2022 09:34, No significant change was found Confirmed by Philippe Owusu ([id number]) on 08/24/2022 9:12:23 AM Referred By: REFERRED SELF Confirmed By:Jayson Owusu
[2022-08-24] MEDS: APIXABAN 5 MG TABLET PO SCH ×2 (10:05→21:15)
[2022-08-24] MEDS: PROPRANOLOL HCL 10 MG TAB PO SCH ×2 (10:06→21:18)
[2022-08-24] MEDS: FERROUS SULFATE 325 MG TAB PO SCH ×2 (10:06→21:16)
[2022-08-24] MEDS: FINASTERIDE 5 MG TAB PO SCH (10:06)
[2022-08-24] MEDS: ASPIRIN 81 MG ECTAB PO SCH (10:06)
[2022-08-24] MEDS: GABAPENTIN 300 MG CAP PO SCH ×3 (10:07→21:17)
[2022-08-24] MEDS: PANTOprazole 40 MG TAB PO SCH (10:07)
[2022-08-24] MEDS: TAMSULOSIN HCL 0.4 MG CAP PO SCH (10:07)
[2022-08-24] MEDS: oxyCODONE/ACETAMINOPHEN 5mg/325mg TAB PO PRN (12:02)
--- NOTE | 2022-08-24 13:52 | Ultrasound Report ---
US venous doppler LE RT HISTORY: 71 years-old Male rle pain acute pain of the right lower extremity. History of popliteal ve in thrombus COMPARISON: Duplex venous Doppler study 05/09/2018 TECHNIQUE: Multiple real-time sonographic images of the right lower extremity deep venous structures were obtained assessing grayscale appearance, color and spectral flow. FINDINGS: Nonocclusive thrombus within the common femoral and popliteal veins. Otherwise normal flow, compressi bility, phasicity and augmentation. IMPRESSION: 1. No acute DVT identified. 2. Nonocclusive deep venous thrombi are likely chronic. ACT 112: Negative or not required by law. The above report was generated using voice recognition software. It may contain grammatical, syntax o r spelling errors. Electronically signed by: Horacio Ramirez M.D. 08/24/2022 1:51 PM
[2022-08-24] MEDS: PIPERACILLIN/TAZOBACTAM 3.375 GM in DEXTROSE 5% 100 ML IV SCH ×2 (15:01→21:20)
[2022-08-24] MEDS ORDERED: POLYETHYLENE (MIRALAX) 17 GM PACK PO PRN (15:03)
--- NOTE | 2022-08-24 15:21 | Hospitalist Progress Note ---
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 due to lack of care at home, HLD, CVA, BPH, renal calculi presented to ED 08/23 for evaluation of generalized weakness. Patient had recently underwent cystoscopy on 08/14/2022. There was no evidence of tumor however there was evidence of bladder outlet obstruction and possible persistent UTI. Urine culture was obtained that showed no growth. Patient was placed on 7 days of empiric Bactrim. Patient developed worsening poor appetite and generalized weakness 3 days ago CLIENT SUPPORT ANALYST. He reports getting weak since about 1 month along with decreasing appetite. Is being managed for the following: Weakness: MAGY (acute kidney injury): Patient presenting from home with reports of generalized weakness and fall x 2. Reports weakness and decreasing appetite since 1 month CLIENT SUPPORT ANALYST, worsening since last 3 days CLIENT SUPPORT ANALYST As an outpatient, patient underwent cystoscopy on 08/14 for evaluation of hematuria. Patient was placed on prophylactic Bactrim for 1 week. This could have contributed to worsening GI upset leading to poor p.o. intake, dehydration and subsequent MAGY/weakness. Urine culture from 08/14 no growth. Admitting UA not suggestive of UTI. Admitting creatinine of 2.15, baseline around 1.3, creatinine downtrending. Continue with IV fluid, PT/OT, avoid nephrotoxins. Can DC IV fluids once patient is eating better. Fever Patient developed fever, T-max 39.6 C. Procalcitonin 08/24 elevated. Patient complained of RLE pain since 1 day, has chronic discoloration which could likely mask if any erythema Patient empirically started on antibiotic, will continue to monitor RLE for pain improvement with antibiotic. Follow-up 08/23 blood culture. Elevated troponin: Likely secondary to acute on chronic renal failure stage IIIa HS trop 549 then down trended, no acute ST changes on admitting EKG. Follow-up EKG with no changes. Echo with EF of 60 to 65%, LV size and systolic function normal, RV systolic function normal, grade 1 diastolic dysfunction Patient with no chest pain or shortness of breath on exam. Continue telemetry monitoring. History of DVT [RLE x3, LLE x1, PE x1]: Continue with home Eliquis, patient reported to be missing his home Eliquis intermittently per patient's friend Montse. RLE Doppler negative for acute DVT, has chronic nonocclusive DVT. Other chronic medical conditions: Stroke on ASA and statin, HTN [amlodipine recently stopped due to low BP], DM type II, BPH on finasteride and tamsulosin resume home meds as able DVT prophylaxis: On Eliquis Full code Updated patient's friend Montse at bedside, answered all her questions in detail, she voiced understanding and was agreeable to plan of care. Admission and Anticipated Discharge Date Admission Date: August 23, 2022 Subjective Patient seen and examined at bedside for follow-up of weakness, acute kidney injury, elevated troponin. Patient was lying in bed, on room air, NAD, reports eating okay, last bowel movement 2 days ago, reports RLE pain, would like pain management and bowel r egimen. Denies headache, chest pain, palpitation, other review of symptoms. Physical Exam Physical Exam: GENERAL: Alert and oriented x3. NAD, on RA. HEENT: No pallor, no icterus. Pupils equal, round and reactive to light. Oral mucosa moist. NECK: No JVD, no neck masses. HEART: S1 and S2 heard. Regular rate and rhythm. No murmur, no gallop. RESPIRATORY SYSTEM: Normal AP diameter. No accessory muscle use. No wheezing, no crackles. ABDOMEN: Soft, bowel sounds present, nontender, no distention. CENTRAL NERVOUS SYSTEM: No facial droop. Speech is clear. Obeys simple commands. Moves extremities. EXTREMITIES: No edema, no erythema seen on LLE. RLE w/ varicose vein, discoloration (noted to be chronic per pt), and minimally tender. Results & Data Results & Data ([facility]) Vital Signs (Past 12 Hours) Vital Signs Temp Pulse Pulse Resp BP BP Pulse Ox 08/24/22 11:08 38.4 C H 82 19 146/79 H 97 08/24/22 07:55 36.7 C 82 18 141/77 H 94 08/24/22 04:39 38.1 C H 97 H 08/24/22 03:30 39.6 C H 98 H 22 158/91 H 97 O2 Del Method 08/24/22 11:08 Room Air 08/24/22 07:55 Room Air 08/24/22 04:39 08/24/22 03:30 Room Air
[2022-08-24] MEDS: DOCUSATE SODIUM 100 MG CAP PO SCH ×2 (17:15→21:19)
[2022-08-24] MEDS: ATORVASTATIN 40 MG TAB PO SCH (21:17)
[2022-08-25] MEDS: oxyCODONE/ACETAMINOPHEN 5mg/325mg TAB PO PRN (01:58)
[2022-08-25] MEDS: SODIUM CHLORIDE 0.9% 1000ML 1,000 ML IV SCH ×2 (03:54→22:28)
[2022-08-25] MEDS: PIPERACILLIN/TAZOBACTAM 3.375 GM in DEXTROSE 5% 100 ML IV SCH (05:53)
[2022-08-25 06:04] LABS: Hematocrit (blood only) 25.7 % (42.0-52.0); Hemoglobin 8.9 g/dl (14.0-18.0); Mean Corpuscular Hemoglobin 30.9 pg (25.0-34.0); Mean Corpuscular Hgb Conc 34.6 g/dL (32.0-36.0); Mean Corpuscular Volume 89.2 fL (80.0-100.0); Platelet Count 138 K/uL (130-400); RDW Coefficient of Variation 15.3 % (11.5-14.5); RDW Standard Deviation 50.1 fL (36.4-46.3); Red Blood Count 2.88 M/uL (4.70-6.10); White Blood Count 9.88 K/ul (4.8-10.8)
[2022-08-25 06:23] LABS: Calcium 7.8 mg/dl (8.5-10.1); Magnesium 1.6 mg/dl (1.7-2.4); Potassium 3.9 mmol/L (3.5-5.1)
[2022-08-25 06:29] LABS: BUN Creatinine Ratio 15.8 (10-20); Creatinine Clr Calc Pharmacy 39.6 ml/min; Est GFR (African American) 43.2 ml/min; Est GFR (Non-African American) 37.3 ml/min; Phosphorus 4.1 mg/dl (2.5-4.9)
[2022-08-25] MEDS: TAMSULOSIN HCL 0.4 MG CAP PO SCH (08:18)
[2022-08-25] MEDS: ASPIRIN 81 MG ECTAB PO SCH (08:18)
[2022-08-25] MEDS: APIXABAN 5 MG TABLET PO SCH ×2 (08:18→20:54)
[2022-08-25] MEDS: DOCUSATE SODIUM 100 MG CAP PO SCH ×2 (08:18→20:54)
[2022-08-25] MEDS: FINASTERIDE 5 MG TAB PO SCH (08:19)
[2022-08-25] MEDS: GABAPENTIN 300 MG CAP PO SCH ×3 (08:19→22:27)
[2022-08-25] MEDS: FERROUS SULFATE 325 MG TAB PO SCH ×2 (08:19→20:53)
[2022-08-25] MEDS: PANTOprazole 40 MG TAB PO SCH (08:19)
[2022-08-25] MEDS: PROPRANOLOL HCL 10 MG TAB PO SCH ×2 (08:19→20:58)
[2022-08-25] MEDS: INSULIN ASPART PER UNIT SC SCH ×4 (09:10→21:45)
[2022-08-25] MEDS: MAGNESIUM SULFATE / D5W 1 GM/100 ML BAG IV SCH ×2 (09:54→12:46)
[2022-08-25] MEDS ORDERED: VANCOMYCIN CONSULT ACTIVE PRN (12:04)
--- NOTE | 2022-08-25 12:10 | XRay Report ---
XR knee RT 3V CLINICAL HISTORY: Rt knee pain/warm, ? septic joint/effusion TECHNIQUE: 3 views of the right knee were obtained. Comparison: None available at the time of this dictation. FINDINGS: There is no evidence of an acute fracture. Joint spaces are well-preserved. Moderate suprapatellar ef fusion is seen. Vascular calcifications are noted. IMPRESSION: There is a moderate suprapatellar effusion without evidence of acute fracture. Soft tissue swelling i s seen. Findings may represent, or cellulitis, no radiographic evidence of osteomyelitis is seen. ACT 112: Negative or not required by law. Electronically signed by: Duran Tovar M.D. 08/25/2022 12:09 PM
[2022-08-25] MEDS ORDERED: VANCOMYCIN HCL 1,750 MG in SODIUM CHLORIDE 0.9% 500 ML IV ONE (12:45)
[2022-08-25] MEDS: CEFEPIME 2,000 MG in SYRINGE 0 ML IV SCH (12:58)
--- NOTE | 2022-08-25 14:07 | Pharmacy Report ---
Pharmacy PK ABX Note - Date of Service August 25, 2022 - Assessment and Plan Assessment 71 year old M who presented to the ED for evaluation of generalized weakness. Patient is s/p cystoscopy on 08/14/22 with concerns of persistent UTI. He was placed on 7 days of empiric Bactrim. He subsequently developed worsening poor appetite and generalized weakness. Upon admission, he was febrile overnight with procal of 1.07 and reports of RLE pain. He was started on pip-tazo on 08/24 ( received four doses). on 08/25, antibiotic coverage was broadened to vancomycin + cefepime for the treatment of possible septic knee. Preliminary BC reported no growth Plan Vancomycin * Loading dose: 1750 mg (19.6 mg/kg) IV x 1 * Maintenance dose: 1250 mg (14 mg/kg) IV every 24 hours * high likelihood that regimen will require adjustment on 08/26 depending on SCr trend * Regimen is predicted to achieve target AUC/EUSEBIA of 400-600 mg/L.hr * Timing of drug level TBD Pharmacy will continue to follow and will adjust dose/frequency as necessary. Thank you.
--- NOTE | 2022-08-25 15:29 | Electrocardiogram Report ---
Test Reason : Blood Pressure : / mmHG Vent. Rate : 076 BPM Atrial Rate : 076 BPM P-R Int : 146 ms QRS Dur : 088 ms QT Int : 372 ms P-R-T Axes : 064 -04 026 degrees QTc Int : 418 ms Normal sinus rhythm Low voltage QRS Borderline ECG When compared with ECG of 24-AUG-2022 06:09, No significant change was found Confirmed by Philippe Owusu ([id number]) on 08/25/2022 3:29:17 PM Referred By: REFERRED SELF Confirmed By:Jayson Owusu
--- NOTE | 2022-08-25 15:53 | Hospitalist Progress Note ---
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 due to lack of care at home, HLD, CVA, BPH, renal calculi presented to ED 08/23 for evaluation of generalized weakness. Patient had recently underwent cystoscopy on 08/14/2022. There was no evidence of tumor however there was evidence of bladder outlet obstruction and possible persistent UTI. Urine culture was obtained that showed no growth. Patient was placed on 7 days of empiric Bactrim. 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 He reports getting weak since about 1 month along with decreasing appetite. Is being managed for the following: Weakness: MAGY (acute kidney injury): Patient presenting from home with reports of generalized weakness and fall x 2. 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 Patient was placed on prophylactic Bactrim for 1 week. This could have contributed to worsening GI upset leading to poor p.o. intake, dehydration and subsequent MAGY/weakness. Urine culture from 08/14 no growth. Admitting UA not suggestive of UTI. Admitting creatinine of 2.15, baseline around 1.3, creatinine downtrending though minimally. Continue with IV fluid, PT/OT, avoid nephrotoxins. Will c/w ivf until we see improvement in renal fxn. Fever possible Rt knee joint infection: Patient developed fever, T-max 39.6 C on 08/24 . Procalcitonin 08/24 elevated. Patient complained of RLE pain since 1 day on 08/24, has chronic discoloration to his rle Pt w/ warm and tender Rt knee joint, painful rom, XR knee ordered, ortho consulted, TT'd, await recs. Zosyn 08/24 changed to cefepime 08/25 and vanco 08/25 until knee infection ruled out. Afebrile since last evening. Follow-up 08/23 blood culture. Elevated troponin: Likely secondary to acute on chronic renal failure stage IIIa HS trop 549 then down trended, no acute ST changes on admitting EKG. Follow-up EKG with no changes. Echo with EF of 60 to 65%, LV size and systolic function normal, RV systolic function normal, grade 1 diastolic dysfunction Patient with no chest pain or shortness of breath on exam. Continue telemetry monitoring. History of DVT [RLE x3, LLE x1, PE x1]: Continue with home Eliquis, patient reported to be missing his home Eliquis intermittently per patient's friend Montse. RLE Doppler negative for acute DVT, has chronic nonocclusive DVT. Other chronic medical conditions: Stroke on ASA and statin, HTN [amlodipine recently stopped due to low BP], DM type II, BPH on finasteride and tamsulosin resume home meds as able DVT prophylaxis: On Eliquis Full code Updated patient's friend Montse at bedside 08/24, answered all her questions in detail, she voiced understanding and was agreeable to plan of care. Admission and Anticipated Discharge Date Admission Date: August 23, 2022 Subjective Patient seen and examined at bedside for follow-up of weakness, acute kidney injury, elevated troponin. Patient was lying in bed, on room air, NAD, reports eating some, last bowel movement 2-3 days ago, reports RLE pain same as yesterday. Denies headache, chest pain, palpitation, other review of symptoms. Physical Exam Physical Exam: GENERAL: Alert and oriented x3. NAD, on RA. HEENT: No pallor, no icterus. Pupils equal, round and reactive to light. Oral mucosa moist. NECK: No JVD, no neck masses. HEART: S1 and S2 heard. Regular rate and rhythm. No murmur, no gallop. RESPIRATORY SYSTEM: Normal AP diameter. No accessory muscle use. No wheezing, no crackles. ABDOMEN: Soft, bowel sounds present, nontender, no distention. CENTRAL NERVOUS SYSTEM: No facial droop. Speech is clear. Obeys simple commands. Moves extremities. EXTREMITIES: No edema, no erythema seen on LLE. RLE w/ varicose vein, discoloration (noted to be chronic per pt). Rt knee warm and tender w/ palpation and rom. Results & Data Results & Data ([facility]) Vital Signs (Past 12 Hours) Vital Signs Temp Pulse Pulse Resp BP Pulse Ox O2 Del Method 08/25/22 12:17 36.8 C 89 18 122/73 94 Room Air 08/25/22 07:00 73 08/25/22 08:28 36.6 C 93 H 17 142/78 H 95 Room Air
--- NOTE | 2022-08-25 16:14 | Orthopedic Consultation ---
Date of Consultation August 25, 2022 Assessment & Plan (1) Knee pain, right: Patient has right knee pain with effusion. The knee is warm. Its been like this for the last 3 to 5 days. He has been getting physical therapy. He states is very hard to bear weight. Due to the effusion and concern for possible infection we discussed aspirating the knee. This will help with this pain and also for diagnostic purposes. He was agreeable to this. Postinjection he felt a little bit better although he did continue to have some knee pain. The fluid was sent for crystal analysis, Lyme titer, cell count analysis, Gram stain, anaerobic and anaerobic C&S. Also we will get a uric acid level tomorrow morning with his routine labs. He was made n.p.o. after midnight just in case the labs come back showing infection and need for possible washout. He otherwise can do range of motion as tolerated, weightbearing as tolerated. He will need to use a walker to assist with ambulation. He can keep an Anton bandage on it for compression. Use ice as tolerated for pain. Encouraged range of motion and bending and straightening his knee while in bed. He does understand and agree with the plan. His friend/family member was also present for today's visit. We will reevaluate tomorrow and follow-up with him regarding the lab results. Plan reviewed with Dr. York, he understands and agrees. Procedure: Patient was placed in the supine position and his hospital bed. The right knee was extended. Time out and verbal consent was obtained. Risks and benefits of the aspiration were discussed. He does agree to proceed. The superolateral pouch was marked, cleansed with Betadine swabs and alcohol. Then aspirated 85 cc of cloudy yellow-tinged fluid. No hemarthrosis. Pressure was applied for hemostasis and a pressure dressing with a 4 x 4 and Anton bandage was applied to his right knee. I, Dr. York, saw and examined the patient and discussed the management with my PA. I reviewed my PAs note and agree with the documented findings and the plan of care I developed. My PA performed the aspiration under my direction and supervision. Present on Admission?: Yes History of Present Illness Reason for Consultation: right knee pain and effusion Requesting Physician: Karla York MD Attending Physician: Mimi Bynum MD History of Present Illness Patient is a pleasant 71 year old male, resting in bed. States that he has had right knee pain, getting progressively worse for the past 3 days. He was brought into the hospital 2 days ago by his family for dizziness, lightheadedness and falling. States that he does not recall any injury to the right knee, but it's getting progressively harder to bear weight. He denies any previous problem with the right knee. Denies history of gout or pseudogout. States that he had an uncle with pseudogout in the past. No fevers or chills. Tried to participate in PT today but pain with any movement and unable to bear weight. X-rays were taken and show no evidence of fracture. Ortho consult placed for eval of joint effusion, possible septic joint. History of DVT's. On Eliquis. Allergies Allergy/AdvReac Type Severity Reaction Status Date / Time No Known Allergies Allergy Verified 08/23/22 12:42 Home Medications Medication Instructions Recorded Confirmed Type apixaban 5 mg tablet (Eliquis) 5 mg PO BID 30 days #60 tabs 02/02/21 08/23/22 Rx metformin 1,000 mg tablet 1,000 mg PO BIDM 02/12/21 08/23/22 History aspirin 81 mg tablet,delayed 81 mg PO QAM 03/29/21 08/23/22 History release (Bong Low Dose Aspirin) atorvastatin 40 mg tablet (Lipitor) 40 mg PO HS 03/29/21 08/23/22 History gabapentin 300 mg capsule 300 mg PO TID 03/29/21 08/23/22 History (Neurontin) ferrous sulfate 325 mg (65 mg 325 mg PO AMHS 06/27/21 08/23/22 History iron) tablet (FeroSul) propranolol 10 mg tablet 10 mg PO BID 07/28/22 08/23/22 History Cinnamon Caps 1,200 mg PO TID 08/03/22 08/23/22 History finasteride 5 mg tablet 5 mg PO DAILY 08/23/22 08/23/22 History tamsulosin 0.4 mg capsule 0.4 mg PO QAM 08/23/22 08/23/22 History Patient History Medical History (Updated 08/25/22 @ 17:09 by Lorri Dacosta PA-C) Anemia BPH (benign prostatic hypertrophy) Diabetes mellitus, type 2 NIDDM Dyslipidemia History of DVT (deep vein thrombosis) 1993- on Eliquis Hydronephrosis with urinary obstruction due to ureteral calculus Kidney stones Pulmonary embolism 1994- on Eliquis Stroke 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 ischemic stroke, residual mild weakness and short- term memory impairment Surgical History H/O colonoscopy History of back surgery No hardware History of cystoscopy Cystoscopy, left retropyelogram, Left ureteral stent placement (03/30/21): LMA#4 at [facility] History of tympanoplasty of right ear Status post appendectomy Family History Uncle Family history of diabetes mellitus Other Heart disease Social History Smoking Status: Former smoker Tobacco Type: Cigarettes Second Hand Exposure: Yes (FRIEND'S SPOUSE SMOKES-STAYING AT THEIR HOUSE CURRENTLY); Hx Alcohol Use: No Hx Substance Use: No Preferred Language: Guatemalan Communication Ability: Effective Forensic Psychologist Required: No Beliefs That Will Affect Care: None marital status: / Current Living Situation: Other Current Living Situation Comment: Lives with friends Alpa current occupation: NOT WORKING How many Children do You have: 0 Feels Safe at Home: Yes Assistive Devices: None Review of Systems Review of Systems: As per HPI otherwise reviewed and noncontributory. Physical Exam Musculoskeletal: Exam focused on right lower extremity. No evidence of trauma such as ecchymosis or deformity. Large tense effusion to right knee. Knee is warm to touch, but no erythema. Skin healthy and intact. Tolerates gentle passive motion of right hip, right knee and right ankle. No distal edema. Nontender over medial, lateral joint lines or patellar tendon. Hard to active SLR RLE limited due to pain in right knee. Post aspiration able to lift leg with mild assistance about 1 inch off the bed. No Significant pain with passive range of motion. Full ankle range of motion. Distal pulses are 1+. Some dry scaly skin at the medial side of his right ankle. Nontender throughout his foot or ankle with palpation. No tenderness with palpation of his tibia or femur. Patient seen and evaluated by Dr. York as well. Dr. York's exam: Anton bandage around the knee. Neurovasculaly intact. ROM 10-100 degrees. Able to preform straight leg raise. Results & Data ([facility]) Vital Signs (Past 12 Hours) Vital Signs Temp Pulse Pulse Resp BP Pulse Ox O2 Del Method 08/25/22 12:17 36.8 C 89 18 122/73 94 Room Air 08/25/22 07:00 73 08/25/22 08:28 36.6 C 93 H 17 142/78 H 95 Room Air Laboratory Results 08/25/22 08/25/22 08/25/22 Range/Units Unknown Unknown Unknown WBC (4.8-10.8) K/ul RBC (4.70-6.10) M/uL Hgb (14.0-18.0) g/dl Hct (42.0-52.0) % MCV (80.0-100.0) fL MCH (25.0-34.0) pg MCHC (32.0-36.0) g/dL RDW Std Deviation (36.4-46.3) fL RDW Coeff of Aranza (11.5-14.5) % Plt Count (130-400) K/uL MPV (9.4-12.4) fL Sodium (136-145) mmol/L Potassium (3.5-5.1) mmol/L Chloride (98-107) mmol/L Carbon Dioxide (21-32) mmol/L Anion Gap (3-11) BUN (6-23) mg/dl Creatinine (0.6-1.4) mg/dl Est Cr Clr Drug Dosing ml/min Est GFR ( Amer) ml/min Est GFR (Non-Af Amer) ml/min BUN/Creatinine Ratio (10-20) Glucose (70-99(Fasting)) mg/dl POC Glucose (70-99) mg/dl Calcium (8.5-10.1) mg/dl Phosphorus (2.5-4.9) mg/dl Magnesium (1.7-2.4) mg/dl Fld Lyme DNA (PCR) Pending Fluid Comment Synovial Source Pending Synovial Color Pending Synovial Appearance Pending Synovial Crystals Pending Lyme Specimen Source Pending 08/25/22 08/25/22 08/25/22 Range/Units 16:45 11:46 08:01 WBC (4.8-10.8) K/ul RBC (4.70-6.10) M/uL Hgb (14.0-18.0) g/dl Hct (42.0-52.0) % MCV (80.0-100.0) fL MCH (25.0-34.0) pg MCHC (32.0-36.0) g/dL RDW Std Deviation (36.4-46.3) fL RDW Coeff of Aranza (11.5-14.5) % Plt Count (130-400) K/uL MPV (9.4-12.4) fL Sodium (136-145) mmol/L Potassium (3.5-5.1) mmol/L Chloride (98-107) mmol/L Carbon Dioxide (21-32) mmol/L Anion Gap (3-11) BUN (6-23) mg/dl Creatinine (0.6-1.4) mg/dl Est Cr Clr Drug Dosing ml/min Est GFR ( Amer) ml/min Est GFR (Non-Af Amer) ml/min BUN/Creatinine Ratio (10-20) Glucose (70-99(Fasting)) mg/dl POC Glucose 141 H 244 H 156 H (70-99) mg/dl Calcium (8.5-10.1) mg/dl Phosphorus (2.5-4.9) mg/dl Magnesium (1.7-2.4) mg/dl Fld Lyme DNA (PCR) Fluid Comment Synovial Source Synovial Color Synovial Appearance Synovial Crystals Lyme Specimen Source 08/25/22 08/25/22 08/24/22 Range/Units 05:20 05:20 20:15 WBC 9.88 (4.8-10.8) K/ul RBC 2.88 L (4.70-6.10) M/uL Hgb 8.9 L (14.0-18.0) g/dl Hct 25.7 L (42.0-52.0) % MCV 89.2 (80.0-100.0) fL MCH 30.9 (25.0-34.0) pg MCHC 34.6 (32.0-36.0) g/dL RDW Std Deviation 50.1 H (36.4-46.3) fL RDW Coeff of Aranza 15.3 H (11.5-14.5) % Plt Count 138 (130-400) K/uL MPV 10.0 (9.4-12.4) fL Sodium 133 L (136-145) mmol/L Potassium 3.9 (3.5-5.1) mmol/L Chloride 104 (98-107) mmol/L Carbon Dioxide 21 (21-32) mmol/L Anion Gap 8 (3-11) BUN 28 H (6-23) mg/dl Creatinine 1.77 H (0.6-1.4) mg/dl Est Cr Clr Drug Dosing 39.6 ml/min Est GFR ( Amer) 43.2 ml/min Est GFR (Non-Af Amer) 37.3 ml/min BUN/Creatinine Ratio 15.8 (10-20) Glucose 137 H (70-99(Fasting)) mg/dl POC Glucose 114 H (70-99) mg/dl Calcium 7.8 L (8.5-10.1) mg/dl Phosphorus 4.1 (2.5-4.9) mg/dl Magnesium 1.6 L (1.7-2.4) mg/dl Fld Lyme DNA (PCR) Fluid Comment Synovial Source Synovial Color Synovial Appearance Synovial Crystals Lyme Specimen Source 08/24/22 Range/Units 17:10 WBC (4.8-10.8) K/ul RBC (4.70-6.10) M/uL Hgb (14.0-18.0) g/dl Hct (42.0-52.0) % MCV (80.0-100.0) fL MCH (25.0-34.0) pg MCHC (32.0-36.0) g/dL RDW Std Deviation (36.4-46.3) fL RDW Coeff of Aranza (11.5-14.5) % Plt Count (130-400) K/uL MPV (9.4-12.4) fL Sodium (136-145) mmol/L Potassium (3.5-5.1) mmol/L Chloride (98-107) mmol/L Carbon Dioxide (21-32) mmol/L Anion Gap (3-11) BUN (6-23) mg/dl Creatinine (0.6-1.4) mg/dl Est Cr Clr Drug Dosing ml/min Est GFR ( Amer) ml/min Est GFR (Non-Af Amer) ml/min BUN/Creatinine Ratio (10-20) Glucose (70-99(Fasting)) mg/dl POC Glucose 137 H (70-99) mg/dl Calcium (8.5-10.1) mg/dl Phosphorus (2.5-4.9) mg/dl Magnesium (1.7-2.4) mg/dl Fld Lyme DNA (PCR) Fluid Comment Synovial Source Synovial Color Synovial Appearance Synovial Crystals Lyme Specimen Source Blood cultures negative Anaerobic and aerobic Gram stain, cell count for analysis, crystals, Lyme Diagnostic Findings XR knee RT 3V CLINICAL HISTORY: Rt knee pain/warm, ? septic joint/effusion TECHNIQUE: 3 views of the right knee were obtained. Comparison: None available at the time of this dictation. FINDINGS: There is no evidence of an acute fracture. Joint spaces are well-preserved. Moderate suprapatellar effusion is seen. Vascular calcifications are noted. IMPRESSION: There is a moderate suprapatellar effusion without evidence of acute fracture. Soft tissue swelling is seen. Findings may represent, or cellulitis, no radiographic evidence of osteomyelitis is seen. US venous doppler LE RT HISTORY: 71 years-old Male rle pain acute pain of the right lower extremity. History of popliteal vein thrombus COMPARISON: Duplex venous Doppler study 05/09/2018 TECHNIQUE: Multiple real-time sonographic images of the right lower extremity deep venous structures were obtained assessing grayscale appearance, color and spectral flow. FINDINGS: Nonocclusive thrombus within the common femoral and popliteal veins. Otherwise normal flow, compressibility, phasicity and augmentation. IMPRESSION: 1. No acute DVT identified. 2. Nonocclusive deep venous thrombi are likely chronic.
[2022-08-25 18:14] LABS: Appearance Synovial Fluid Cloudy; Color Synovial Fluid Yellow; Mononuclear WBC Synovial 32.4 %; Polynuclear WBC Synovial 67.6 %; RBC Synovial Fluid Auto 10000 /uL; Source Synovial Fluid Right Knee; WBC Synovial Fluid Auto 58050 /ul (0-200)
[2022-08-25] MEDS: ATORVASTATIN 40 MG TAB PO SCH (20:54)
[2022-08-26] MEDS: oxyCODONE/ACETAMINOPHEN 5mg/325mg TAB PO PRN ×2 (01:05→15:57)
[2022-08-26] MEDS: CEFEPIME 2,000 MG in SYRINGE 0 ML IV SCH ×2 (01:08→14:33)
--- NOTE | 2022-08-26 07:43 | Orthopedic Progress Note ---
Date of Service August 26, 2022 Assessment & Plan (1) Knee pain, right: Plan: IMPRESSION: Right knee pain secondarily to infection, acute. PLAN: Continue NPO. Placed on the add-on list for later this am. Risks and benefits as well as alternatives discussed. Consent signed for right knee arthroscopic irrigation and debridement. Present on Admission?: Yes Admission and Anticipated Discharge Date Admission Date: August 23, 2022 Subjective Right knee pain Physical Exam Physical Exam: RLE: limited ROM secondarily to pain. ++ effusion. Neurovascularly unchanged. Results & Data ([facility]) Vital Signs (Past 12 Hours) Vital Signs Temp Pulse Pulse Resp BP BP Pulse Ox 08/26/22 04:58 36.5 C 83 14 119/61 92 08/25/22 22:02 86 08/25/22 23:55 37.6 C H 94 H 14 114/73 95 08/25/22 20:57 93 H 117/72 O2 Del Method 08/26/22 04:58 Room Air 08/25/22 22:02 08/25/22 23:55 Room Air 08/25/22 20:57 Laboratory Results 08/26/22 08/25/22 08/25/22 Range/Units 07:51 Unknown Unknown POC Glucose 151 H (70-99) mg/dl Fld Lyme DNA (PCR) Pending Fluid Comment Synovial Source Synovial Color Synovial Appearance Synovial WBC (Auto) (0-200) /ul Synovial RBC (Auto) /uL Synovial Polynuclear % % Synovial Mononuclear % % Synovial Crystals Pending Lyme Specimen Source Pending 08/25/22 08/25/22 08/25/22 Range/Units Unknown 21:02 16:45 POC Glucose 133 H 141 H (70-99) mg/dl Fld Lyme DNA (PCR) Fluid Comment Synovial Source Right Knee Synovial Color Yellow Synovial Appearance Cloudy Synovial WBC (Auto) 17579 H (0-200) /ul Synovial RBC (Auto) 28564 /uL Synovial Polynuclear % 67.6 % Synovial Mononuclear % 32.4 % Synovial Crystals Lyme Specimen Source 08/25/22 Range/Units 11:46 POC Glucose 244 H (70-99) mg/dl Fld Lyme DNA (PCR) Fluid Comment Synovial Source Synovial Color Synovial Appearance Synovial WBC (Auto) (0-200) /ul Synovial RBC (Auto) /uL Synovial Polynuclear % % Synovial Mononuclear % % Synovial Crystals Lyme Specimen Source Microbiology Name: MICHAELLE PARSONS Acct: [id number] Status: [place] 1950 [facility] [place]: 08[place]23/22 Age: 71 Sex: M Dis Date: Loc: [address]/Bed: [facility] Spec: [id number] Collected: 08/25/22-UNK Received: 08/25/22-[address]: Lorri Dacosta., R (ORTHO) Copy To: Dunia Dejesus MD Source: Knee,Right OV Order: Ordered: Aer/Juani Cult/Sm Comments: Critical result called to [facility] On 08/25/22 at 2207 by Tonya Roy and results were verbalized back. Procedure Result Verified Site Gram Stain Final 08/25/22 Gram Stain Result Many WBCs Seen Rare Intracellular Gram Positive Cocci Aero/Juani Cult PENDING Name: MICAHELLE PARSONS : 1950 PAGE 1 Printed: 08/26/22 0805 END OF REPORT
[2022-08-26 08:18] LABS: Hematocrit (blood only) 25.6 % (42.0-52.0); Hemoglobin 8.9 g/dl (14.0-18.0); Mean Corpuscular Hemoglobin 30.7 pg (25.0-34.0); Mean Corpuscular Hgb Conc 34.8 g/dL (32.0-36.0); Mean Corpuscular Volume 88.3 fL (80.0-100.0); Mean Platelet Volume 9.8 fL (9.4-12.4); Platelet Count 159 K/uL (130-400); RDW Coefficient of Variation 15.5 % (11.5-14.5); RDW Standard Deviation 49.7 fL (36.4-46.3); White Blood Count 8.96 K/ul (4.8-10.8)
[2022-08-26] MEDS ORDERED: PROPOFOL IV EMULSION 10 MG/ML 20 ML VIAL IV ONE (08:22)
[2022-08-26] MEDS ORDERED: MIDAZOLAM HCL 1 MG/ML 2ML VIAL ONE (08:22)
[2022-08-26] MEDS ORDERED: fentaNYL citrate 100 MCG/2 ML VIAL ONE ×2 (08:22→11:56)
[2022-08-26] MEDS ORDERED: LIDOCAINE 2% MPF LOCAL 5 ML VIAL INFIL ONE (08:22)
[2022-08-26] MEDS ORDERED: DEXAMETHASONE SOD INJ 4 MG/ML VIAL ONE (08:22)
[2022-08-26] MEDS ORDERED: ONDANSETRON INJ 2 MG/ML 2 ML VIAL ONE (08:22)
--- NOTE | 2022-08-26 08:25 | Anesthesiology Consultation ---
Date of Service August 26, 2022 Assessment & Plan Chart Review Chart Review: Acceptable Risk for Surgery Consults Requested none ASA [id number] Proposed Anesthesia Anesthesia Type: General Risk / Benefits Reviewed With: PT / POA / Parent / Guardian, Accepts Plan and Informed Consent Obtained Additional Comments: accept mi,cva, History Surgery Operation Date: 08/26/22 08:05 Proposed Procedures p Arthroscopy Knee(Right) - Kolton Shirley York MD Height/Weight Height: 5 ft 7 in Weight: 90 kg Allergies Allergy/AdvReac Type Severity Reaction Status Date / Time No Known Allergies Allergy Verified 08/23/22 12:42 Medications Home Medications Medication Instructions Recorded Confirmed Last Taken apixaban 5 mg tablet (Eliquis) 5 mg PO BID 30 days #60 tabs 02/02/21 08/23/22 08/03/22 08:00 metformin 1,000 mg tablet 1,000 mg PO BIDM 02/12/21 08/23/22 08/03/22 08:00 aspirin 81 mg tablet,delayed 81 mg PO QAM 03/29/21 08/23/22 08/03/22 release (Bong Low Dose Aspirin) atorvastatin 40 mg tablet (Lipitor) 40 mg PO HS 03/29/21 08/23/22 08/02/22 gabapentin 300 mg capsule 300 mg PO TID 03/29/21 08/23/22 08/03/22 12:00 (Neurontin) ferrous sulfate 325 mg (65 mg 325 mg PO AMHS 06/27/21 08/23/22 08/03/22 08:00 iron) tablet (FeroSul) propranolol 10 mg tablet 10 mg PO BID 07/28/22 08/23/22 08/03/22 08:00 Cinnamon Caps 1,200 mg PO TID 08/03/22 08/23/22 08/03/22 12:00 finasteride 5 mg tablet 5 mg PO DAILY 08/23/22 08/23/22 Unknown tamsulosin 0.4 mg capsule 0.4 mg PO QAM 08/23/22 08/23/22 Unknown Active Medications Generic Name Dose Route Start Last Admin Trade Name Freq PRN Reason Stop Dose Admin Acetaminophen 650 mg 08/23/22 16:55 08/24/22 10:15 Acetaminophen 325 Mg Tab PO 09/22/22 16:54 650 mg Q4H PRN Administration Mild Pain or Fever Apixaban 5 mg 08/23/22 21:00 08/25/22 20:54 Apixaban 5 Mg Tablet PO 09/22/22 20:59 5 mg BID WILMER Administration Aspirin 81 mg 08/24/22 09:00 08/25/22 08:18 Aspirin 81 Mg Ectab PO 09/23/22 08:59 81 mg QAM WILMER Administration Atorvastatin Calcium 40 mg 08/23/22 21:00 08/25/22 20:54 Atorvastatin 40 Mg Tab PO 09/22/22 20:59 40 mg HS WILMER Administration Docusate Sodium 100 mg 08/24/22 15:05 08/25/22 20:54 Docusate Sodium 100 Mg Cap PO 09/23/22 15:04 100 mg BID WILMER Administration Ferrous Sulfate 325 mg 08/23/22 21:00 08/25/22 20:53 Ferrous Sulfate 325 Mg Tab PO 09/22/22 20:59 325 mg BID WILMER Administration Finasteride 5 mg 08/24/22 09:00 08/25/22 08:19 Finasteride 5 Mg Tab PO 09/23/22 08:59 5 mg DAILY WILMER Administration Gabapentin 300 mg 08/23/22 21:00 08/25/22 22:27 Gabapentin 300 Mg Cap PO 09/22/22 20:59 300 mg TID WILMER Administration Sodium Chloride 1,000 mls @ 65 mls/hr 08/23/22 16:55 08/25/22 22:28 Nss 1000ml IV 09/22/22 16:54 65 mls/hr .[id number] WILMER Administration Promethazine HCl 12.5 mg/ 50.5 mls @ 202 mls/hr 08/23/22 19:40 08/23/22 20:26 Sodium Chloride IV 09/22/22 19:39 Infused Q6H PRN Infusion Nausea And Vomiting Cefepime HCl 2,000 mg/ Syringe 20 mls @ 5 mls/min 08/25/22 12:15 08/26/22 01:08 IV 10/06/22 12:14 5 mls/min Q12H WILMER Administration Protocol Insulin Aspart 0 units 08/23/22 18:00 08/26/22 08:58 Insulin Aspart Per Unit SC 09/22/22 17:59 1 units ACHS WILMER Administration Oxycodone/Acetaminophen 1 tab 08/24/22 11:03 08/26/22 01:05 Oxycodone/Acetaminophen 5mg/325mg Tab PO 09/07/22 11:02 1 tab Q6H PRN Administration Moderate Pain Pantoprazole Sodium 40 mg 08/23/22 19:45 08/25/22 08:19 Pantoprazole 40 Mg Tab PO 09/22/22 19:44 40 mg QAM WILMER Administration Propranolol HCl 10 mg 08/23/22 21:00 08/25/22 20:58 Propranolol Hcl 10 Mg Tab PO 09/22/22 20:59 10 mg BID WILMER Administration Tamsulosin HCl 0.4 mg 08/24/22 09:00 08/25/22 08:18 Tamsulosin Hcl 0.4 Mg Cap PO 09/23/22 08:59 0.4 mg QAM WILMER Administration NPO Date Last Intake of Fluids: 08/26/22 Time Last Intake of Fluids: 00:01 Date Last Intake of Solids: 08/26/22 Time Last Intake of Solids: 00:01 Past Medical History Medical History (Updated 08/26/22 @ 08:17 by Lorri Pop DO) Anemia Benign localized prostatic hyperplasia with lower urinary tract symptoms (LUTS) BPH (benign prostatic hypertrophy) Diabetes mellitus, type 2 NIDDM Dyslipidemia History of DVT (deep vein thrombosis) 1993- on Eliquis Hydronephrosis with urinary obstruction due to ureteral calculus Hypertension Kidney stones Osteoarthritis Pulmonary embolism 1993- on Eliquis Stroke 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 ischemic stroke, residual mild weakness and short- term memory impairment Type 2 diabetes mellitus Exercise / Class Metabolic Activity III < 4 Walking/Shop/Light housework Past Family History Family History Uncle Family history of diabetes mellitus Other Heart disease Past Surgical History Surgical History (Updated 08/26/22 @ 08:17 by Lorri Pop DO) H/O colonoscopy History of back surgery No hardware History of cystoscopy Cystoscopy, left retropyelogram, Left ureteral stent placement (03/30/21): LMA#4 at [facility] History of tympanoplasty of right ear Status post appendectomy Past Anesthesia History No Hx of Anesthesia Complications and No Family Hx of Anesthesia Complications History of PONV No Hx of PONV and No Hx of Motion Sickness Social History Smoking Status: Former smoker tobacco type: cigarettes Hx Alcohol Use: No Hx Substance Use: No Physical Exam Vital Signs Last Vital Signs Temp 36.6 C 08/26/22 08:26 Pulse 81 08/26/22 08:26 Resp 19 08/26/22 08:26 BP 117/65 08/26/22 08:26 Pulse Ox 93 08/26/22 08:26 O2 Del Method 08/26/22 08:26 ENMT Mouth: + dentition abnormality (10 bottom teethremain), + dentures and + small oral opening; no TMJ abnormality Thyromental Distance: > or= 3.5 Finger Breadths Mallampati Class: II Neck normal visual inspection, trachea midline and + facial hair; neck extension not limited Respiratory normal respiratory effort Auscultation: lungs clear to auscultation bilaterally Cardiovascular Rate/Rhythm: regular rate and regular rhythm Heart Sounds: no murmur Musculoskeletal Spine: normal cervical ROM Extremities: full ROM of extremities Neurologic moves all extremities Psychiatric Orientation: alert and oriented x 3 Testing Laboratory Results 08/26/22 07:54 08/26/22 07:54 PT 10.7 Seconds (9.0-12.0) 08/23/22 09:30 INR 1.0 (0.9-1.1) 08/23/22 09:30 Urine Color Yellow 08/24/22 Unknown Urine Appearance Cloudy (Clear) A 08/24/22 Unknown Urine pH 6.0 (4.5-7.5) 08/24/22 Unknown Ur Specific [place] 1.016 (1.000-1.030) 08/24/22 Unknown Urine Protein 1+ (Negative) H 08/24/22 Unknown Urine Glucose (UA) Negative (Negative) 08/24/22 Unknown Urine Ketones Negative (Negative) 08/24/22 Unknown Urine Nitrite Negative (Negative) 08/24/22 Unknown Ur Leukocyte Esterase Negative (Negative) 08/24/22 Unknown Urine WBC (Auto) 1-5 /hpf (0-5) 08/24/22 Unknown Urine RBC (Auto) 5-10 /hpf (0-4) H 08/24/22 Unknown U Hyaline Cast (Auto) 1-5 /lpf (0-5) 08/24/22 Unknown U Epithel Cells (Auto) 10-20 /lpf (0-5) H 01/26/23 Unknown Urine Bacteria (Auto) Negative (Negative) 08/24/22 Unknown 08/25/22 Unknown Gram Stain - Final Knee,Right 08/23/22 18:43 Aerobic Blood Culture - Preliminary Blood No growth in Aerobic bottle after 48 hours. Anaerobic Blood Culture - Final 08/23/22 18:34 Aerobic Blood Culture - Preliminary Blood No growth in Aerobic bottle after 48 hours. Anaerobic Blood Culture - Final 08/26/22 08/25/22 07:51 21:02 POC Glucose 151 H 133 H cbc/prp noted with BUN 28/creat 1.77 gluc this AM 5441=799 COVID 08/23/22 negative trop I sens noted at 473.9 Electrocardiogram Date: 08/25/22 Findings: + NSR @ (76) Chest X-Ray Date: 08/23/22 Findings: + NAD Echocardiogram Date: 08/24/22 EF: 60-65 LV Function: normal RWMA: + none Other Findings: + diastolic dysfunction (gr 1 ) Valvular Disease: + no significant valvular disease
[2022-08-26] MEDS ORDERED: ATROPINE SULFATE 0.1 MG/ML 10ML SYR IV PRN (08:27)
[2022-08-26] MEDS ORDERED: ONDANSETRON INJ 2 MG/ML 2 ML VIAL IV PRN (08:27)
[2022-08-26] MEDS ORDERED: ePHEDrine sulfate 50 MG/ML AMP IV PRN (08:27)
[2022-08-26] MEDS ORDERED: MEPERIDINE HCL 25 MG/ML CARP/VIAL IV PRN (08:27)
[2022-08-26] MEDS ORDERED: HYDROmorphone INJ 1 MG/ML SYRINGE IV PRN (08:27)
[2022-08-26] MEDS ORDERED: fentaNYL citrate 100 MCG/2 ML VIAL IV PRN (08:27)
[2022-08-26 08:44] LABS: Calcium 7.9 mg/dl (8.5-10.1)
[2022-08-26 08:50] LABS: Creatinine Clr Calc Pharmacy 46.9 ml/min; Est GFR (African American) 52.8 ml/min; Est GFR (Non-African American) 45.5 ml/min; Uric Acid 3.8 mg/dl (2.6-7.2)
[2022-08-26] MEDS ORDERED: BUPIVACAINE 0.5 % 5 MG/1 ML MPF 30ML VIAL ONE (08:53)
[2022-08-26] MEDS ORDERED: EpINEphrine HCL INJ 1 MG/ML 1ML SYRINGE ONE ×2 (08:53→09:59)
[2022-08-26] MEDS ORDERED: LIDOCAINE 1%/EPINEPHRINE 1:100,000 50 ML VIAL ONE (08:53)
[2022-08-26] MEDS: INSULIN ASPART PER UNIT SC SCH ×4 (08:58→21:30)
[2022-08-26] MEDS: FERROUS SULFATE 325 MG TAB PO SCH ×2 (09:00→20:41)
--- NOTE | 2022-08-26 11:11 | Post Operative Brief Note ---
Immediate Post Op Note v1 Date of Surgery August 26, 2022 Pre & Post Diagnosis Operation Date: 08/26/22 08:05 Pre-Op Diagnosis: Right Knee infection Post-Op Diagnosis: Right Knee infection, Medial and lateral Meniscus tears, and chondromalacia I identified the patient and participated in the time-out.: Yes Procedure Operation Date: 08/26/22 08:05 Actual Procedures p Arthroscopy Knee, Incision and Drainage, Chondroplasty, Partial Medial and Lateral Meniscectomy(Right) - Kolton York MD Surgeon Kolton York MD Customer Contact Sales Associate Tiana Dacosta PA-C (No fellow available) Estimated Blood Loss 10 Findings Consistent with Post-Op Diagnosis Fluids 1000 cc Specimens Right knee aspirate: gram stain Right knee aspirate: aerobic and anaerobic C&S Right knee aspirate: cell count Right knee aspirate: pathology Drains Hemovac Drain Anesthesia Type General Complications none
--- NOTE | 2022-08-26 11:12 | Operative Report ---
Post Operative Report Pre & Post Diagnosis Operation Date: 08/26/22 08:05 Pre-Op Diagnosis: Right Knee infection Post-Op Diagnosis: Right Knee infection, Medial and lateral Meniscus tears, and chondromalacia I identified the patient and participated in the time-out.: Yes Procedure Operation Date: 08/26/22 08:05 Actual Procedures p Arthroscopy Knee, Incision and Drainage, Chondroplasty, Partial Medial and Lateral Meniscectomies (Right) - Kolton York MD Surgeon Kolton York MD Clock Smith Tiana Dacosta PA-C (No fellow available) Estimated Blood Loss 10 Findings See Below The right knee was examined under anesthesia. Range of motion was 5-120 degrees. Ligamentous examination exhibited: stable Naseem, posterior drawer, varus and valgus stress at 5 & 30 degrees. ++ effusion. ARTHROSCOPIC FINDINGS: There was significant serosanguineous fluid and fibrinous material evacuated from the knee after inserting the trochar for the scope. There was significant synovitis and fibrinous material in the suprapatellar pouch. 1) PATELLOFEMORAL JOINT: The articular cartilage of the Patella had grade II [place] changes. The articular cartilage of the Trochlea grade I changes. 2) GUTTERS: No loose bodies.There was significant synovitis and fibrinous material in both gutters. 3) MEDIAL COMPARTMENT: The articular cartilage of the femur had grade II changes. The articular cartilage of the Tibia had grade I changes. The medial meniscus had a degenerative posterior horn tear and degenerative undersurface tear with radial component at the apex. 4) ACL/PCL: They were both visualized and probed to be intact. There was some synovitis along both. 5) LATERAL COMPARTMENT: The lateral compartment was then entered in a [id number] position. The articular cartilage of the femur was intact. The articular cartilage of the Tibia had grade II changes mostly near the anterior and posterior horns. The lateral meniscus had complex degenerative tear. Fluids 1000 cc Specimens Right knee aspirate: Gram stain; aerobic & Anaerobic C&S, cell count, pathology Drains HVAC Anesthesia Type General Complications none Indications This is a 71-year-old male who has clinical and labratory findings consistent with septic knee. I recommended that a right knee arthroscopy be performed with irrigation and debridement. The patient understands the risks of surgery, which include but not limited to: bleeding, infection, re-operation, damage to nerves and arteries, continued knee pain, progression of OA, DVT, and MN, stroke, . The patient understands all of these instructions and explanations, all of his questions have been satisfactorily addressed and the patient has elected to proceed. Informed consent was signed. Description of Procedure Tiana Dacosta PA-C is assisting with positioning and closure due to fellow not available. Procedure: The patient was taken to the Operating Room and placed in the supine position after general anesthetic was administered. My initials and a multidisciplinary time-out were used to identify the correct patient and the right leg as the operative limb. Antibiotic regime was continued. The right leg was then prepped and draped in a standard sterile fashion. The anterolateral, anteromedial, and superolateral portals were injected with the 50:50 mix of 1% Lidocaine plain and 0.5% Marcaine with epinephrine, for a total of 10 cc, in the standard fashion. An anterolateral arthroscopic portal was established with an 11-blade. Next, the arthroscope was introduced into the knee, significant amount of serosanguineous fluid was evacuated. A diagnostic arthroscopy commenced and both the superolateral and anteromedial portals were established under direct visualization using a spinal needle followed by an 11 blade in the standard fashion. The above findings were observed during the diagnostic arthroscopy. The synovitis, fibrinous tissue, and anterior fat pad were debrided as they were encounter (from the suprapatellar pouc to both gutters, notch, and posteriorly through notch) with mechanical shaver and [place] The articular cartilage damage from MFC and lateral tibial plateau were debrided back to stable margins as they were encountered with mechanical shaver. The medial and lateral meniscus tears were evaluated and found to be irreparable and were debrided back to stable margin with hand punches, and mechanical shaver, they were probed after and found to be stable. The knee was copiously irrigated with 15 L normal saline. The arthroscopic instruments were then removed. A large HVAC drain was placed through the superolateral portal. The portals were closed with 3-0 Prolene in a standard fashion. The wound was dressed with Xerof orm gauze, sterile gauze, ABDs, sterile Webril, and a foot to thigh Anton bandage. The patient was then transferred to the Recovery Room in stable condition. The sponge and needle counts were correct. Post-op Instructions: The patient was admitted back to hospitalist service and will continue antibiotic regime until C&S results can focus treatment. The patient will be WBAT with walker. Will continue with HVAC. The patient may remove the operative dressing on Post-Op Day #2 and continue with compression. The patient may shower in 48 hours. Continue to check labs. Will continue to follow in the hospital. I attest to the content of the Intraoperative Record and any orders documented therein. Any exceptions are noted below.
--- NOTE | 2022-08-26 11:24 | Operative Report ---
Post Operative Report Pre & Post Diagnosis Operation Date: 08/26/22 08:05 Pre-Op Diagnosis: Right Knee infection Post-Op Diagnosis: Right Knee infection, Medial and lateral Meniscus tears, and chondromalacia I identified the patient and participated in the time-out.: Yes Procedure Operation Date: 08/26/22 08:05 Actual Procedures p Arthroscopy Knee, Incision and Drainage, Chondroplasty, Partial Medial and Lateral Meniscectomy(Right) - Kolton York MD Surgeon Kolton York M.D. Basketball Assembler Tiana Dacosta PA-C (No fellow available) Estimated Blood Loss 10 Findings Consistent with Post-Op Diagnosis Synovitis, medial and lateral meniscus tear; chondromalacia Specimens Right knee joint fluid Drains Hemovac x 1 Anesthesia Type General Description of Procedure Patient was taken to the operating room, placed under general anesthesia. Time out performed, prepped and draped in routine sterile fashion. I was present during the entire case, please see Dr. York's operative report for further detail. Patient was awakened and taken to the recovery room in stable condition. I attest to the content of the Intraoperative Record and any orders documented therein. Any exceptions are noted below.
--- NOTE | 2022-08-26 11:54 | Anesthesiology Progress Note ---
Date of Service August 26, 2022 Anesthesia Post Procedure Vital Signs Vital Signs: Temp Pulse Pulse Pulse Resp BP BP 08/26/22 11:30 92 H 15 136/88 08/26/22 11:50 88 14 136/83 08/26/22 11:40 93 H 20 142/87 H 08/26/22 11:23 37.1 C 91 H 16 154/89 H 08/26/22 08:26 36.6 C 81 19 117/65 08/26/22 04:58 36.5 C 83 14 119/61 08/25/22 22:02 86 08/25/22 23:55 37.6 C H 94 H 14 114/73 08/25/22 20:57 93 H 117/72 08/25/22 19:30 37.4 C 92 H 19 150/91 H 08/25/22 16:36 37 C 92 H 18 103/67 08/25/22 12:17 36.8 C 89 18 122/73 Pulse Ox O2 Del Method O2 Flow Rate 08/26/22 11:30 95 Oxymask 6 08/26/22 11:50 95 Nasal Cannula 2 08/26/22 11:40 95 Oxymask 3 08/26/22 11:23 93 Oxymask 6 08/26/22 08:26 93 Room Air 08/26/22 04:58 92 Room Air 08/25/22 22:02 08/25/22 23:55 95 Room Air 08/25/22 20:57 08/25/22 19:30 94 Room Air 08/25/22 16:36 92 Room Air 08/25/22 12:17 94 Room Air Pain Intensity Right Upper Leg: Pain Intensity: 4 Right Posterior Knee: Pain Intensity: 7 Transfer of Care Handoff Completed per policy Notes Mental Status: alert / awake / arousable Patient Amnestic to Procedure: Yes Nausea / Vomiting: adequately controlled Pain: adequately controlled Airway Patency, RR, SpO2: stable & adequate BP & HR: stable & adequate Hydration State: stable & adequate Anesthetic Complications: no major complications apparent and Pt Satisfied with anesthetic care
[2022-08-26] MEDS ORDERED: NALOXONE HCL 0.4 MG/1 ML VIAL/CARP IV PRN (12:29)
[2022-08-26] MEDS ORDERED: traMADol HCL 50 MG TABLET PO PRN (12:29)
[2022-08-26] MEDS: HYDROmorphone INJ 0.5 MG/0.5 ML SYR IV PRN ×2 (12:38→17:30)
[2022-08-26] MEDS: PROPRANOLOL HCL 10 MG TAB PO SCH ×2 (12:42→20:41)
[2022-08-26] MEDS: PANTOprazole 40 MG TAB PO SCH (12:43)
[2022-08-26] MEDS: FINASTERIDE 5 MG TAB PO SCH (12:43)
[2022-08-26] MEDS: GABAPENTIN 300 MG CAP PO SCH ×3 (12:43→20:39)
[2022-08-26] MEDS: DOCUSATE SODIUM 100 MG CAP PO SCH ×2 (12:43→20:40)
[2022-08-26] MEDS: ASPIRIN 81 MG ECTAB PO SCH (12:43)
[2022-08-26] MEDS: TAMSULOSIN HCL 0.4 MG CAP PO SCH (12:43)
[2022-08-26] MEDS: APIXABAN 5 MG TABLET PO SCH ×2 (12:44→20:40)
[2022-08-26] MEDS: VANCOMYCIN HCL 1,250 MG in SODIUM CHLORIDE 0.9% 250 ML IV SCH (14:33)
--- NOTE | 2022-08-26 15:09 | Hospitalist Progress Note ---
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 due to lack of care at home, HLD, CVA, BPH, renal calculi presented to ED 08/23 for evaluation of generalized weakness. Patient had recently underwent cystoscopy on 08/14/2022. There was no evidence of tumor however there was evidence of bladder outlet obstruction and possible persistent UTI. Urine culture was obtained that showed no growth. Patient was placed on 7 days of empiric Bactrim. 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 He reports getting weak since about 1 month along with decreasing appetite. Is being managed for the following: Weakness: MAGY (acute kidney injury): Patient presenting from home with reports of generalized weakness and fall x 2. Reports weakness and decreasing appetite since 1 month SHELLACKER, worsening since last 3 days SHELLACKER As an outpatient, patient underwent cystoscopy on 08/14 for evaluation of hematuria. Patient was placed on prophylactic Bactrim for 1 week. This could have contributed to worsening GI upset leading to poor p.o. intake, dehydration and subsequent MAGY/weakness. Urine culture from 08/14 no growth. Admitting UA not suggestive of UTI. Admitting creatinine of 2.15, baseline around 1.3, creatinine downtrending Continue with IV fluid, PT/OT, avoid nephrotoxins.Likely DC iv fluid елена. Fever possible Rt knee joint infection: Patient developed fever, T-max 39.6 C on 08/24 . Procalcitonin 08/24 elevated. Patient complained of RLE pain since 1 day on 08/24, has chronic discoloration to his rle Pt w/ warm and tender Rt knee joint, painful rom, XR knee ordered 08/25/reviewed Ortho evaled, s/p Arthroscopy Knee, Incision and Drainage, Chondroplasty, Partial Medial and Lateral Meniscectomy(Right) - Kolton York MD on 08/26/22 Zosyn 08/24 changed to cefepime 08/25 and vanco 08/25 f/u Arthrocentesis and operative studies. Gram stain w/ GPC. Afebrile lately Follow-up 08/23 blood culture. no growth so far. ID consult, await recs. Elevated troponin: Likely secondary to acute on chronic renal failure stage IIIa HS trop 549 then down trended, no acute ST changes on admitting EKG. Follow-up EKG with no changes. Echo with EF of 60 to 65%, LV size and systolic function normal, RV systolic function normal, grade 1 diastolic dysfunction Patient with no chest pain or shortness of breath on exam. Continue telemetry monitoring. History of DVT [RLE x3, LLE x1, PE x1]: Continue with home Eliquis, patient reported to be missing his home Eliquis intermittently per patient's friend Montse. RLE Doppler negative for acute DVT, has chronic nonocclusive DVT. Other chronic medical conditions: Stroke on ASA and statin, HTN [amlodipine recently stopped due to low BP], DM type II, BPH on finasteride and tamsulosin resume home meds as able DVT prophylaxis: On Eliquis Full code Updated patient's friend Montse at bedside 08/24 and 08/26, answered all her questions in detail, she voiced understanding and was agreeable to plan of care. Admission and Anticipated Discharge Date Admission Date: August 23, 2022 Subjective Patient seen and examined at bedside for follow-up of weakness, acute kidney injury, elevated troponin. Patient was lying in bed, on 2L NC O2, s/p Rt knee washout for septic knee joint, NAD, reports pain better controlled, has tolerated broth so far. Denies headache, chest pain, palpitation, other review of symptoms.Pt's customer care assistant and friends Montse and Roby were updated at bedside at different time separately. Physical Exam Physical Exam: GENERAL: Alert and oriented x3. NAD, on 2L NC O2. HEENT: No pallor, no icterus. Pupils equal, round and reactive to light. Oral mucosa moist. NECK: No JVD, no neck masses. HEART: S1 and S2 heard. Regular rate and rhythm. No murmur, no gallop. RESPIRATORY SYSTEM: Normal AP diameter. No accessory muscle use. No wheezing, no crackles. ABDOMEN: Soft, bowel sounds present, nontender, no distention. CENTRAL NERVOUS SYSTEM: No facial droop. Speech is clear. Obeys simple commands. Moves extremities. EXTREMITIES: No edema, no erythema seen on LLE. RLE w/ dressing over rt knee and hemovac in place. Distal NV status wnl. Results & Data Results & Data ([facility]) Vital Signs (Past 12 Hours) Vital Signs Temp Pulse Pulse Resp BP Pulse Ox O2 Del Method 08/26/22 12:29 36.6 C 91 H 16 138/86 96 Nasal Cannula 08/26/22 12:10 88 20 142/86 H 94 Nasal Cannula 08/26/22 11:30 92 H 15 136/88 95 Oxymask 08/26/22 12:00 36.7 C 88 17 145/88 H 93 Nasal Cannula 08/26/22 11:50 88 14 136/83 95 Nasal Cannula 08/26/22 11:40 93 H 20 142/87 H 95 Oxymask 08/26/22 11:23 37.1 C 91 H 16 154/89 H 93 Oxymask 08/26/22 08:26 36.6 C 81 19 117/65 93 Room Air 08/26/22 04:58 36.5 C 83 14 119/61 92 Room Air O2 Flow Rate 08/26/22 12:29 2 08/26/22 12:10 2 08/26/22 11:30 6 08/26/22 12:00 2 08/26/22 11:50 2 08/26/22 11:40 3 08/26/22 11:23 6 08/26/22 08:26 08/26/22 04:58
[2022-08-26] MEDS: SODIUM CHLORIDE 0.9% 1000ML 1,000 ML IV SCH (15:57)
[2022-08-26] MEDS: ATORVASTATIN 40 MG TAB PO SCH (20:40)
[2022-08-27] MEDS: CEFEPIME 2,000 MG in SYRINGE 0 ML IV SCH ×3 (00:22→23:15)
[2022-08-27] MEDS: oxyCODONE/ACETAMINOPHEN 5mg/325mg TAB PO PRN ×3 (00:22→21:25)
[2022-08-27] MEDS: SODIUM CHLORIDE 0.9% 1000ML 1,000 ML IV SCH (05:55)
[2022-08-27 08:09] LABS: Hematocrit (blood only) 23.8 % (42.0-52.0); Hemoglobin 7.9 g/dl (14.0-18.0); Mean Corpuscular Hgb Conc 33.2 g/dL (32.0-36.0); Mean Corpuscular Volume 90.5 fL (80.0-100.0); Platelet Count 179 K/uL (130-400); RDW Coefficient of Variation 14.9 % (11.5-14.5); RDW Standard Deviation 49.5 fL (36.4-46.3); Red Blood Count 2.63 M/uL (4.70-6.10); White Blood Count 7.24 K/ul (4.8-10.8)
[2022-08-27] MEDS: INSULIN ASPART PER UNIT SC SCH ×4 (08:44→21:48)
[2022-08-27] MEDS: ASPIRIN 81 MG ECTAB PO SCH (08:45)
[2022-08-27] MEDS: FERROUS SULFATE 325 MG TAB PO SCH ×2 (08:45→21:28)
[2022-08-27] MEDS: PANTOprazole 40 MG TAB PO SCH (08:45)
[2022-08-27] MEDS: GABAPENTIN 300 MG CAP PO SCH ×3 (08:45→21:28)
[2022-08-27] MEDS: PROPRANOLOL HCL 10 MG TAB PO SCH ×2 (08:45→21:30)
--- NOTE | 2022-08-27 08:45 | Orthopedic Progress Note ---
Date of Service August 27, 2022 Assessment & Plan (1) Knee pain, right: Plan: IMPRESSION: POD #1 s/p arthroscopic I&D + chondroplasty and partial medial and lateral meniscectomies right knee secondarily to infection, gram + cocci. PLAN: Resume diet NPO. Removed HVAC 08/27/22. Re-enforce dressing as needed. Continue DVT Prophylaxis: Eliquis, TEDs, and SCD's. WBAT with walker, progressing as tolerated. PT/OT Continue Abx regime of Cefepime & Vancomycin. Continue pain control. Continue care per primary service. Continue to monitor microbiology. Would appreciate ID input once C&S results available. D/C planning. Admission and Anticipated Discharge Date Admission Date: August 23, 2022 Subjective Right knee feeling better. Physical Exam Physical Exam: Sitting on bed daniel. RLE: Neurovascularly unchanged. calf soft and non-tender. Dressing clean, dry, intact. Results & Data ([facility]) Vital Signs (Past 12 Hours) Vital Signs Temp Pulse Pulse Resp BP Pulse Ox O2 Del Method 08/27/22 04:46 82 18 116/71 97 Room Air 08/26/22 21:59 61 08/27/22 00:16 36.2 C L 18 114/62 96 Room Air HVAC: per nurse, minimal output; scant serosanguineous drainage next to collection container which was open. Laboratory Results Spec: [id number] Collected: 08/26/22 Received: 08/26/[address]: Kolton York MD Copy To: Dunia Dejesus MD Source: Knee,Right OV Order: Ordered: Aer/Juani Cult/Sm Comments: Comment 1) Right Knee Joint Fluid Procedure Result Verified Site Gram Stain Final 08/26/22-1243 Gram Stain Result Many WBCs Seen Rare Gram Positive Cocci Aero/Juani Cult PENDING Source: Knee,Right OV Order: Ordered: Aer/Juani Cult/Sm Comments: Critical result called to TERRANCE NEGRON On 08/25/22 at 2207 by Tonya Roy and results were verbalized back. Procedure Result Verified Site Gram Stain Final 08/25/22-2207 Gram Stain Result Many WBCs Seen Rare Intracellular Gram Positive Cocci Aero/Juani Cult Preliminary 08/26/22-1132 Blood Cx no growth to date.
[2022-08-27] MEDS: FINASTERIDE 5 MG TAB PO SCH (08:46)
[2022-08-27] MEDS: APIXABAN 5 MG TABLET PO SCH ×2 (08:46→21:29)
[2022-08-27] MEDS: DOCUSATE SODIUM 100 MG CAP PO SCH ×2 (08:46→21:26)
[2022-08-27] MEDS: TAMSULOSIN HCL 0.4 MG CAP PO SCH (08:46)
[2022-08-27] MEDS ORDERED: MULTIVITAMIN TAB PO SCH (09:00)
[2022-08-27 11:15] LABS: C Reactive Protein 24.94 mg/dl (0-0.5); Calcium 7.7 mg/dl (8.5-10.1); Creatinine Clr Calc Pharmacy 61.7 ml/min; Est GFR (Non-African American) 62.1 ml/min; Potassium 4.6 mmol/L (3.5-5.1)
[2022-08-27] MEDS: VANCOMYCIN HCL 1,250 MG in SODIUM CHLORIDE 0.9% 250 ML IV SCH (12:36)
--- NOTE | 2022-08-27 14:27 | Hospitalist Progress Note ---
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 due to lack of care at home, HLD, CVA, BPH, renal calculi presented to ED 08/23 for evaluation of generalized weakness. Patient had recently underwent cystoscopy on 08/14/2022. There was no evidence of tumor however there was evidence of bladder outlet obstruction and possible persistent UTI. Urine culture was obtained that showed no growth. Patient was placed on 7 days of empiric Bactrim. Patient developed worsening poor appetite and generalized weakness 3 days ago [employer]. He reports getting weak since about 1 month along with decreasing appetite. Is being managed for the following: Weakness: MAGY (acute kidney injury): resolved, dv ivf. Patient presenting from home with reports of generalized weakness and fall x 2. Reports weakness and decreasing appetite since 1 month [employer] SELECTOR, worsening since last 3 days [employer] SELECTOR As an outpatient, patient underwent cystoscopy on 08/14 for evaluation of hematuria. Patient was placed on prophylactic Bactrim for 1 week. This could have contributed to worsening GI upset leading to poor p.o. intake, dehydration and subsequent MAGY/weakness. Urine culture from 08/14 no growth. Admitting UA not suggestive of UTI. Fever possible Rt knee joint infection: Patient developed fever, T-max 39.6 C on 08/24 . Procalcitonin 08/24 elevated. Patient complained of RLE pain since 1 day on 08/24, has chronic discoloration to his rle Pt w/ warm and tender Rt knee joint, painful rom, XR knee ordered 08/25/reviewed Ortho evaled, s/p Arthroscopy Knee, Incision and Drainage, Chondroplasty, Partial Medial and Lateral Meniscectomy(Right) - Kolton York MD on 08/26/22 Zosyn 08/24 changed to cefepime 08/25 and vanco 08/25 synvovial fluid w/ WBC > 50K; f/u Arthrocentesis and operative studies. Gram stain w/ GPC. Afebrile lately Follow-up 08/23 blood culture. no growth so far. ID consult, await recs. Elevated troponin: Likely secondary to acute on chronic renal failure stage IIIa HS trop 549 then down trended, no acute ST changes on admitting EKG. Follow-up EKG with no changes. Echo with EF of 60 to 65%, LV size and systolic function normal, RV systolic function normal, grade 1 diastolic dysfunction Patient with no chest pain or shortness of breath on exam. Continue telemetry monitoring. History of DVT [RLE x3, LLE x1, PE x1]: Continue with home Eliquis, patient reported to be missing his home Eliquis intermittently per patient's friend Montse. RLE Doppler negative for acute DVT, has chronic nonocclusive DVT. Other chronic medical conditions: Stroke on ASA and statin, HTN [amlodipine recently stopped due to low BP], DM type II, BPH on finasteride and tamsulosin resume home meds as able DVT prophylaxis: On Eliquis Full code Updated patient's friend Montse at bedside 08/24 and 08/26, answered all her questions in detail, she voiced understanding and was agreeable to plan of care. Admission and Anticipated Discharge Date Admission Date: August 23, 2022 Subjective Patient seen and examined at bedside for follow-up of weakness, acute kidney injury, elevated troponin. Patient was lying in bed, on RA, s/p Rt knee washout for septic knee joint on 08/26, NAD, reports pain better controlled at right knee, is eating ok. Denies headache, chest pain, palpitation, other review of symptoms. Physical Exam Physical Exam: GENERAL: Alert and oriented x3. NAD, on RA. HEENT: No pallor, no icterus. Pupils equal, round and reactive to light. Oral mucosa moist. NECK: No JVD, no neck masses. HEART: S1 and S2 heard. Regular rate and rhythm. No murmur, no gallop. RESPIRATORY SYSTEM: Normal AP diameter. No accessory muscle use. No wheezing, no crackles. ABDOMEN: Soft, bowel sounds present, nontender, no distention. CENTRAL NERVOUS SYSTEM: No facial droop. Speech is clear. Obeys simple commands. Moves extremities. EXTREMITIES: No edema, no erythema seen on LLE. RLE w/ dressing over rt knee. Distal NV status wnl. Results & Data Results & Data ([facility]) Vital Signs (Past 12 Hours) Vital Signs Temp Pulse Resp BP BP Pulse Ox O2 Del Method 08/27/22 12:23 36.3 C L 69 20 121/79 99 Room Air 08/27/22 04:46 82 18 116/71 97 Room Air
[2022-08-27 14:43] LABS: Hematocrit (blood only) 26.4 % (42.0-52.0); Hemoglobin 8.9 g/dl (14.0-18.0)
[2022-08-27] MEDS: ATORVASTATIN 40 MG TAB PO SCH (21:27)
[2022-08-28] MEDS: oxyCODONE/ACETAMINOPHEN 5mg/325mg TAB PO PRN ×2 (03:15→06:09)
[2022-08-28 07:19] LABS: Est GFR (African American) 64.5 ml/min; Est GFR (Non-African American) 55.7 ml/min
[2022-08-28] MEDS: FINASTERIDE 5 MG TAB PO SCH (08:55)
[2022-08-28] MEDS: TAMSULOSIN HCL 0.4 MG CAP PO SCH (08:55)
[2022-08-28] MEDS: PROPRANOLOL HCL 10 MG TAB PO SCH ×2 (08:56→21:23)
[2022-08-28] MEDS: APIXABAN 5 MG TABLET PO SCH ×2 (08:56→21:23)
[2022-08-28] MEDS: GABAPENTIN 300 MG CAP PO SCH ×3 (08:56→21:24)
[2022-08-28] MEDS: PANTOprazole 40 MG TAB PO SCH (08:56)
[2022-08-28] MEDS: DOCUSATE SODIUM 100 MG CAP PO SCH ×2 (08:56→21:22)
[2022-08-28] MEDS: ASPIRIN 81 MG ECTAB PO SCH (08:57)
[2022-08-28] MEDS: FERROUS SULFATE 325 MG TAB PO SCH ×2 (08:57→21:23)
[2022-08-28] MEDS: INSULIN ASPART PER UNIT SC SCH ×4 (09:04→21:13)
[2022-08-28] MEDS: ACETAMINOPHEN 325 MG TAB PO PRN ×2 (09:04→17:51)
--- NOTE | 2022-08-28 09:19 | Pharmacy Report ---
Pharmacy Vanc AUC Short Note - Date of Service August 28, 2022 - Assessment & Plan Assessment 71 year old M who presented to the ED for evaluation of generalized weakness. Patient is s/p cystoscopy on 08/14/22 with concerns of persistent UTI. He was placed on 7 days of empiric Bactrim. He subsequently developed worsening poor appetite and generalized weakness. Upon admission, he was febrile overnight with procal of 1.07 and reports of RLE pain. He was started on pip-tazo on 08/24 (received four doses). on 08/25, antibiotic coverage was broadened to vancomycin + cefepime for the treatment of possible septic knee. Plan Vancomycin * Increase dose to: Vancomycin 1,500 mg IV q24h starting 08/28/22 at 0900 * Random level 08/28/22: 13.0 * AUC/EUSEBIA is the preferred PK/PD target for vancomycin * AUC guided dosing is effective and associated with decreased risk of n ephrotoxicity compared to traditional trough targets * Trough level of 14.7 mcg/mL is predicted to achieve target AUC/EUSEBIA of 400-600 mg/L.hr and may be associated with a 10 % risk of nephrotoxicity * Random level ordered for: 08/29/22 Pharmacy will continue to follow and will adjust dose/frequency as necessary. Thank you.
[2022-08-28] MEDS: VANCOMYCIN HCL 1,500 MG in SODIUM CHLORIDE 0.9% 500 ML IV SCH (09:40)
--- NOTE | 2022-08-28 10:12 | Orthopedic Progress Note ---
Date of Service August 28, 2022 Assessment & Plan (1) Knee pain, right: Plan: IMPRESSION: POD #2 s/p arthroscopic I&D + chondroplasty and partial medial and lateral meniscectomies right knee secondarily to questionable infection, gram + cocci? PLAN: Removed HVAC 08/27/22. Dressing changed today (08/28/22). Re-enforce dressing as needed. Continue DVT Prophylaxis: Eliquis, TEDs, and SCD's. WBAT with walker, progressing as tolerated. PT/OT Ice and elevate with towels/blankets under ankle Continue Abx regime of Cefepime & Vancomycin. Continue pain control. Continue care per primary service. Continue to monitor microbiology, even though lab re-read gram stain and both aspirates now without any organisms. Would appreciate ID input once C&S results available. D/C planning. Follow up in 2 weeks with [facility] I, Dr. York, saw and examined the patient with my PA and agree with the above findings and plan of care I discussed with them. Admission and Anticipated Discharge Date Admission Date: August 23, 2022 Subjective Pt seen and examined bedside with Dr York this morning. POD 2 s/p arthroscopic incision and drainage with chondroplasty, partial medial and lateral meniscectomies. Patient reports he is overall doing well. Having some knee discomfort this morning. He has no major questions or concerns. Physical Exam Physical Exam: General: Pt laying in hospital bed AA&O, in NAD, calm and cooperative during exam Right Lower Extremity: Dressing in tact and not saturated. Dressing taken down to reveal incisions clean, dry and with minimal drainage and no surrounding erythema, warmth or purulent drainage. Mild knee effusion and ecchymosis noted. Gross motor in tact with ankle and all 5 digits. Lower extremity noted to have good color and temperature with no signs of vascular or lymphatic insufficiency. Incisions redressed with 4x4s, ABDs and genny wrap. Results & Data ([facility]) Vital Signs (Past 12 Hours) Vital Signs Temp Pulse Pulse Resp BP Pulse Ox O2 Del Method 08/28/22 08:24 36.6 C 100 H 18 151/89 H 93 Room Air 08/28/22 02:38 36.4 C L 78 18 122/74 96 Room Air 08/28/22 02:15 77 08/27/22 23:00 36.5 C 77 18 106/71 97 Room Air Laboratory Results 08/28/22 08/28/22 08/28/22 Range/Units 16:41 12:08 08:10 Creatinine (0.6-1.4) mg/dl Est Cr Clr Drug Dosing ml/min Est GFR ( Amer) ml/min Est GFR (Non-Af Amer) ml/min POC Glucose 158 H 214 H 193 H (70-99) mg/dl Synovial Crystals Random Vancomycin (10-20) mcg/ml 08/28/22 08/28/22 08/27/22 Range/Units 06:16 06:16 20:19 Creatinine 1.27 (0.6-1.4) mg/dl Est Cr Clr Drug Dosing 57.0 ml/min Est GFR ( Amer) 64.5 ml/min Est GFR (Non-Af Amer) 55.7 ml/min POC Glucose 204 H (70-99) mg/dl Synovial Crystals Random Vancomycin 13.0 (10-20) mcg/ml 08/25/22 Range/Units Unknown Creatinine (0.6-1.4) mg/dl Est Cr Clr Drug Dosing ml/min Est GFR ( Amer) ml/min Est GFR (Non-Af Amer) ml/min POC Glucose (70-99) mg/dl Synovial Crystals Random Vancomycin (10-20) mcg/ml Spec: [id number] Collected: 08/26/22 Received: 08/26/22-[address]: Kolton York MD Copy To: Dunia Dejesus MD Source: Knee,Right OV Order: Ordered: Aer/Juani Cult/Sm Comments: Comment 1) Right Knee Joint Fluid Procedure Result Verified Site Gram Stain Final 08/27/22-1024 Gram Stain Result Many WBCs Seen No Organisms Seen CORRECTED REPORT Report corrected on 08/27/22 at 1020 by April Hugo. NO ORGANISMS SEEN previously reported as Rare Gram Positive Cocci. Phoned corrected report to Aurora Armijo 4W on 08/27/22 at 1020 by April Hugo. Results were verbalized back to April Hugo. * This is a corrected result. * A prior result that was reported as final has been changed. Aero/Juani Cult Preliminary 08/28/22-1199 No growth to date.
[2022-08-28] MEDS: CEFEPIME 2,000 MG in SYRINGE 0 ML IV SCH (12:59)
--- NOTE | 2022-08-28 15:34 | Hospitalist Progress Note ---
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 due to lack of care at home, HLD, CVA, BPH, renal calculi presented to ED 08/23 for evaluation of generalized weakness. Patient had recently underwent cystoscopy on 08/14/2022. There was no evidence of tumor however there was evidence of bladder outlet obstruction and possible persistent UTI. Urine culture was obtained that showed no growth. Patient was placed on 7 days of empiric Bactrim. 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 He reports getting weak since about 1 month along with decreasing appetite. Is being managed for the following: Weakness: MAGY (acute kidney injury): resolved. Patient presenting from home with reports of generalized weakness and fall x 2. 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 Patient was placed on prophylactic Bactrim for 1 week. This could have contributed to worsening GI upset leading to poor p.o. intake, dehydration and subsequent MAGY/weakness. Pt now with better appetite, c/w PT/OT, will need rehab on DC. Fever possible Rt knee joint infection: Patient developed fever, T-max 39.6 C on 08/24 . Procalcitonin 08/24 elevated. Patient complained of RLE pain since 1 day on 08/24, has chronic discoloration to his rle Pt w/ warm and tender Rt knee joint, painful rom, XR knee ordered 08/25/reviewed Ortho evaled, s/p Arthroscopy Knee, Incision and Drainage, Chondroplasty, Partial Medial and Lateral Meniscectomy(Right) - Kolton York MD on 08/26/22 Zosyn 08/24 changed to cefepime 08/25 and vanco 08/25 synvovial fluid w/ WBC > 50K; f/u Arthrocentesis and operative studies. Gram stain w/ GPC. Afebrile last few days. Reports better pain control at Rt knee, is feeling better. Follow-up 08/23 blood culture. no growth so far. ID consult, await recs. Elevated troponin: Likely secondary to acute on chronic renal failure stage IIIa HS trop 549 then down trended, no acute ST changes on admitting EKG. Follow-up EKG with no changes. Echo with EF of 60 to 65%, LV size and systolic function normal, RV systolic function normal, grade 1 diastolic dysfunction Patient with no chest pain or shortness of breath on exam. Continue telemetry monitoring. History of DVT [RLE x3, LLE x1, PE x1]: Continue with home Eliquis, patient reported to be missing his home Eliquis intermittently per patient's friend Montse. RLE Doppler negative for acute DVT, has chronic nonocclusive DVT. Other chronic medical conditions: Stroke on ASA and statin, HTN [amlodipine recently stopped due to low BP], DM type II, BPH on finasteride and tamsulosin resume home meds as able DVT prophylaxis: On Eliquis Full code Dispo: pending ID eval. stable otherwise for rehab. Updated patient's friend Montse at bedside 08/24 and 08/26, 08/28, answered all her questions in detail, she voiced understanding and was agreeable to plan of care. Admission and Anticipated Discharge Date Admission Date: August 23, 2022 Subjective Patient seen and examined at bedside for follow-up of weakness, acute kidney injury, elevated troponin. Patient was lying in bed, on RA, s/p Rt knee washout for septic knee joint on 08/26, NAD, reports pain better controlled at right knee, is eating ok and moving bowels ok, no nausea/vomiting. Denies headache, chest pain, palpitation, other review of symptoms. Physical Exam Physical Exam: GENERAL: Alert and oriented x3. NAD, on RA. HEENT: No pallor, no icterus. Pupils equal, round and reactive to light. Oral mucosa moist. NECK: No JVD, no neck masses. HEART: S1 and S2 heard. Regular rate and rhythm. No murmur, no gallop. RESPIRATORY SYSTEM: Normal AP diameter. No accessory muscle use. No wheezing, no crackles. ABDOMEN: Soft, bowel sounds present, nontender, no distention. CENTRAL NERVOUS SYSTEM: No facial droop. Speech is clear. Obeys simple commands. Moves extremities. EXTREMITIES: No edema, no erythema seen on LLE. RLE w/ dressing over rt knee. Distal NV status wnl. Results & Data Results & Data ([facility]) Vital Signs (Past 12 Hours) Vital Signs Temp Pulse Resp BP Pulse Ox O2 Del Method 08/28/22 12:26 36.4 C L 80 19 137/86 96 Room Air 08/28/22 08:24 36.6 C 100 H 18 151/89 H 93 Room Air
[2022-08-28] MEDS: ATORVASTATIN 40 MG TAB PO SCH (21:24)
[2022-08-29] MEDS: CEFEPIME 2,000 MG in SYRINGE 0 ML IV SCH (01:56)
[2022-08-29 07:36] LABS: Creatinine Clr Calc Pharmacy 59.7 ml/min; Est GFR (African American) 69.1 ml/min; Est GFR (Non-African American) 59.6 ml/min
--- NOTE | 2022-08-29 08:59 | Orthopedic Progress Note ---
Date of Service August 29, 2022 Assessment & Plan (1) Knee pain, right: Plan: IMPRESSION: POD #3 s/p arthroscopic I&D + chondroplasty and partial medial and lateral meniscectomies right knee secondarily to questionable infection, gram + cocci? PLAN: New dressing applied today Continue DVT Prophylaxis: Eliquis, TEDs, and SCD's. WBAT with walker, progressing as tolerated. PT/OT Ice and elevate with towels/blankets under ankle Continue pain control. Continue care per primary service. Continue to monitor microbiology, even though lab re-read gram stain and both aspirates now without any organisms. Patient was seen virtually by infectious disease yesterday. Recommendation was to discontinue the cefepime and continue vancomycin. It was also recommended that the patient may need at least 4 weeks of IV antibiotics upon discharge. D/C planning. Follow up in 2 weeks with [facility] Admission and Anticipated Discharge Date Admission Date: August 23, 2022 Subjective This 71-year-old male is 3 days s/p arthroscopic incision and drainage with chondroplasty, partial medial and lateral meniscectomies. Patient states his k adelfoe feels much better today than yesterday. He states that he has been partaking in physical therapy but does not feel that he has had stable when he has ambulating with the aid of his walker. He states that he has been receiving IV antibiotics and that he met with infectious disease yesterday. Currently he denies chest pain, shortness of breath, fever, chills, sweats, lethargy, numbness or tingling in his right lower extremity. He also has no complaint of nausea, vomiting, difficulty voiding or diarrhea. Review of Systems Review of Systems: As per HPI otherwise reviewed and noncontributory. Physical Exam Physical Exam: Right knee: Outer dressings were removed. Sutures are in place with no fluctuance or drainage. Patient does have significant edema and second ecchymosis over the anterior aspect of the knee. Range of motion is from 0 degrees of extension to about 85 degrees of flexion. He is able to form active straight leg raise test. He is able to actively dorsi and plantarflex foot. Calf soft and supple nontender to palpation. Quad strength is 3+ out of 5. Patient is neurovascularly intact in the right lower extremity. A new dressing was applied consisting of sterile 4 x 4's and ABDs. I kept the Xeroform dressings in place and reapplied his Anton bandage. Results & Data ([facility]) Vital Signs (Past 12 Hours) Vital Signs Temp Pulse Pulse Resp BP BP Pulse Ox 08/29/22 07:09 36.5 C 76 18 143/82 H 98 08/29/22 02:47 36.4 C L 69 16 154/81 H 98 08/29/22 00:00 75 08/28/22 23:11 36.4 C L 83 16 134/79 94 O2 Del Method 08/29/22 07:09 Room Air 08/29/22 02:47 Room Air 08/29/22 00:00 08/28/22 23:11 Room Air Diagnostic Findings Laboratory Results WBC 7.24 K/ul (4.8-10.8) 08/27/22 07:05 RBC 2.63 M/uL (4.70-6.10) L 08/27/22 07:05 Hgb 8.9 g/dl (14.0-18.0) L 08/27/22 14:32 Hct 26.4 % (42.0-52.0) L 08/27/22 14:32 MCV 90.5 fL (80.0-100.0) 08/27/22 07:05 MCH 30.0 pg (25.0-34.0) 08/27/22 07:05 MCHC 33.2 g/dL (32.0-36.0) 08/27/22 07:05 RDW Std Deviation 49.5 fL (36.4-46.3) H 08/27/22 07:05 RDW Coeff of Aranza 14.9 % (11.5-14.5) H 08/27/22 07:05 Plt Count 179 K/uL (130-400) 08/27/22 07:05 MPV 10.0 fL (9.4-12.4) 08/27/22 07:05 Immature Gran % (Auto) 0.7 % 08/23/22 09:30 Neut % (Auto) 81.2 % 08/23/22 09:30 Lymph % (Auto) 5.1 % 08/23/22 09:30 [place] % (Auto) 10.8 % 08/23/22 09:30 Eos % (Auto) 1.4 % 08/23/22 09:30 Baso % (Auto) 0.8 % 08/23/22 09:30 Neut # (Auto) 8.11 K/uL (1.4-6.5) H 08/23/22 09:30 Lymph # (Auto) 0.51 K/uL (1.2-3.4) L 08/23/22 09:30 [place] # (Auto) 1.08 K/uL (0.24-0.82) H 08/23/22 09:30 Eos # (Auto) 0.14 K/uL (0-0.50) 08/23/22 09:30 Baso # (Auto) 0.08 K/uL (0-0.2) 08/23/22 09:30 Immature Gran # (Auto) 0.07 K/uL (0.00-0.02) H 08/23/22 09:30 ESR 17 mm/hr (0-20) 08/27/22 07:05 PT 10.7 Seconds (9.0-12.0) 08/23/22 09:30 INR 1.0 (0.9-1.1) 08/23/22 09:30 Sodium 137 mmol/L (136-145) 08/27/22 07:05 Potassium 4.6 mmol/L (3.5-5.1) 08/27/22 07:05 Chloride 112 mmol/L (98-107) H 08/27/22 07:05 Carbon Dioxide 16 mmol/L (21-32) L 08/27/22 07:05 Anion Gap 9 (3-11) 08/27/22 07:05 BUN 29 mg/dl (6-23) H 08/27/22 07:05 Creatinine 1.20 mg/dl (0.6-1.4) 08/29/22 06:38 Est Cr Clr Drug Dosing 59.7 ml/min 08/29/22 06:38 Est GFR ( Amer) 69.1 ml/min 08/29/22 06:38 Est GFR (Non-Af Amer) 59.6 ml/min 08/29/22 06:38 BUN/Creatinine Ratio 25.0 (10-20) H 08/27/22 07:05 Glucose 178 mg/dl (70-99(Fasting)) H 08/27/22 07:05 POC Glucose 191 mg/dl (70-99) H 08/29/22 08:06 Uric Acid 3.8 mg/dl (2.6-7.2) 08/26/22 07:54 Calcium 7.7 mg/dl (8.5-10.1) L 08/27/22 07:05 Phosphorus 4.1 mg/dl (2.5-4.9) 08/25/22 05:20 Magnesium 2.0 mg/dl (1.7-2.4) 08/26/22 07:54 Total Bilirubin 0.9 mg/dl (0.2-1.0) 08/23/22 09:30 AST 31 U/L (13-39) 08/23/22 09:30 ALT 18 U/L (7-52) 08/23/22 09:30 Alkaline Phosphatase 80 U/L (34-104) 08/23/22 09:30 Troponin I High Sens 473.9 pg/ml (0-20) H* 08/23/22 22:33 C-Reactive Protein 24.94 mg/dl (0-0.5) H 08/27/22 07:05 Total Protein 7.0 gm/dl (6.0-8.3) 08/23/22 09:30 Albumin 4.1 gm/dl (3.4-5.0) 08/23/22 09:30 Globulin 2.9 gm/dl (2.5-4.0) 08/23/22 09:30 Albumin/Globulin Ratio 1.4 (0.9-2) 08/23/22 09:30 Vitamin B12 415 pg/ml (180-914) 08/27/22 08:44 Folate 11.61 ng/ml (>5.38) 08/27/22 08:44 Procalcitonin 1.07 ng/ml (0-0.5) H 08/24/22 03:47 Urine Color Yellow 08/24/22 Unknown Urine Appearance Cloudy (Clear) A 08/24/22 Unknown Urine pH 6.0 (4.5-7.5) 08/24/22 Unknown Ur Specific [place] 1.016 (1.000-1.030) 08/24/22 Unknown Urine Protein 1+ (Negative) H 08/24/22 Unknown Urine Glucose (UA) Negative (Negative) 08/24/22 Unknown Urine Ketones Negative (Negative) 08/24/22 Unknown Urine Blood Trace (Negative) H 08/24/22 Unknown Urine Nitrite Negative (Negative) 08/24/22 Unknown Urine Bilirubin Negative (Negative) 08/24/22 Unknown Urine Urobilinogen Negative (Negative) 08/24/22 Unknown Ur Leukocyte Esterase Negative (Negative) 08/24/22 Unknown Urine WBC (Auto) 1-5 /hpf (0-5) 08/24/22 Unknown Urine RBC (Auto) 5-10 /hpf (0-4) H 08/24/22 Unknown U Hyaline Cast (Auto) 1-5 /lpf (0-5) 08/24/22 Unknown U Epithel Cells (Auto) 10-20 /lpf (0-5) H 08/24/22 Unknown Urine Bacteria (Auto) Negative (Negative) 08/24/22 Unknown Ur Renal Epithelial Cell Cancelled 08/23/22 09:30 Urine Crystals Cancelled 08/23/22 09:30 Calcium Oxalate Crystal Cancelled 08/23/22 09:30 Uric Acid Crystals Cancelled 08/23/22 09:30 Triple Phos Crystals Cancelled 08/23/22 09:30 Other Crystals Cancelled 08/23/22 09:30 Amorphous Sediment Cancelled 08/23/22 09:30 Granular Casts Cancelled 08/23/22 09:30 Waxy Casts Cancelled 08/23/22 09:30 RBC Casts Cancelled 08/23/22 09:30 WBC Casts Cancelled 08/23/22 09:30 Other Casts Cancelled 08/23/22 09:30 Urine Mucus Cancelled 08/23/22 09:30 Urine Other Cancelled 08/23/22 09:30 Urine Trichomonas Cancelled 08/23/22 09:30 Urine Yeast Cancelled 08/23/22 09:30 Urine Sperm Cancelled 08/23/22 09:30 Ur Oval Fat Bodies Cancelled 08/23/22 09:30 Fluid Comment 08/25/22 Unknown Synovial Source Right Knee 08/25/22 Unknown Synovial Color Yellow 08/25/22 Unknown Synovial Appearance Cloudy 08/25/22 Unknown Synovial WBC (Auto) 59859 /ul (0-200) H 08/25/22 Unknown Synovial RBC (Auto) 84674 /uL 08/25/22 Unknown Synovial Polynuclear % 67.6 % 08/25/22 Unknown Synovial Mononuclear % 32.4 % 08/25/22 Unknown Synovial Crystals 08/25/22 Unknown Random Vancomycin 13.0 mcg/ml (10-20) 08/28/22 06:16 SARS-CoV-2 (PCR) NEGATIVE (Negative) 08/23/22 12:22 Influenza Type A (PCR) Negative (Neg) 08/23/22 12:22 Influenza Type B (PCR) Negative (Neg) 08/23/22 12:22 RSV (RT-PCR) Negative (Neg) 08/23/22 12:22 Impressions Chest X-Ray 08/23/22 00:00 XR chest 1V portable CLINICAL HISTORY: Atypical chest pain. COMPARISON STUDY: Chest 08/03/2022. FINDINGS: The lungs are clear. The heart is normal in size. No pleural effusions. No pneumothorax. Punctate metallic fragment again noted within the left lateral chest wall. IMPRESSION: No significant change compared to the prior study. No acute process within the chest. ACT 112: Negative or not required by law. Electronically signed by: Deshawn Montesinos M.D. 08/23/2022 10:06 AM Venous Doppler Study 08/24/22 11:29 US venous doppler LE RT HISTORY: 71 years-old Male rle pain acute pain of the right lower extremity. History of popliteal vein thrombus COMPARISON: Duplex venous Doppler study 05/09/2018 TECHNIQUE: Multiple real-time sonographic images of the right lower extremity deep venous structures were obtained assessing grayscale appearance, color and spectral flow. FINDINGS: Nonocclusive thrombus within the common femoral and popliteal veins. Otherwise normal flow, compressibility, phasicity and augmentation. IMPRESSION: 1. No acute DVT identified. 2. Nonocclusive deep venous thrombi are likely chronic. ACT 112: Negative or not required by law. The above report was generated using voice recognition software. It may contain grammatical, syntax or spelling errors. Electronically signed by: Horacio Ramirez M.D. 08/24/2022 1:51 PM Knee X-Ray 08/25/22 11:21 XR knee RT 3V CLINICAL HISTORY: Rt knee pain/warm, ? septic joint/effusion TECHNIQUE: 3 views of the right knee were obtained. Comparison: None available at the time of this dictation. FINDINGS: There is no evidence of an acute fracture. Joint spaces are well-preserved. Moderate suprapatellar effusion is seen. Vascular calcifications are noted. IMPRESSION: There is a moderate suprapatellar effusion without evidence of acute fracture. Soft tissue swelling is seen. Findings may represent, or cellulitis, no radiographic evidence of osteomyelitis is seen. ACT 112: Negative or not required by law. Electronically signed by: Duran Tovar M.D. 08/25/2022 12:09 PM
[2022-08-29] MEDS: INSULIN ASPART PER UNIT SC SCH ×4 (09:38→20:34)
[2022-08-29] MEDS: DOCUSATE SODIUM 100 MG CAP PO SCH ×2 (09:39→20:44)
[2022-08-29] MEDS: APIXABAN 5 MG TABLET PO SCH ×2 (09:39→20:44)
[2022-08-29] MEDS: GABAPENTIN 300 MG CAP PO SCH ×3 (09:39→20:44)
[2022-08-29] MEDS: PANTOprazole 40 MG TAB PO SCH (09:39)
[2022-08-29] MEDS: ASPIRIN 81 MG ECTAB PO SCH (09:40)
[2022-08-29] MEDS: FERROUS SULFATE 325 MG TAB PO SCH ×2 (09:40→20:44)
[2022-08-29] MEDS: PROPRANOLOL HCL 10 MG TAB PO SCH ×2 (09:40→20:44)
[2022-08-29] MEDS: TAMSULOSIN HCL 0.4 MG CAP PO SCH (09:40)
[2022-08-29] MEDS: FINASTERIDE 5 MG TAB PO SCH (09:40)
[2022-08-29] MEDS: VANCOMYCIN HCL 1,500 MG in SODIUM CHLORIDE 0.9% 500 ML IV SCH (09:41)
[2022-08-29] MEDS: ACETAMINOPHEN 325 MG TAB PO PRN (13:28)
--- NOTE | 2022-08-29 15:07 | XRay Report ---
XR chest 1V portable HISTORY: 71 years-old Male picc line placement to right arm status post placement of a right-sided P ICC COMPARISON: Chest radiograph 08/23/2022 TECHNIQUE: AP view of the chest FINDINGS: Cardiomediastinal and hilar silhouettes are within normal limits. Mild right hemidiaphragmatic elevat ion. A right-sided PICC is noted with distal tip in the expected location of the mid SVC. No postproc edural pneumothorax. Ill-defined 3 cm opacity of the right midlung is new from prior. No pneumothorax , large pleural effusion or overt pulmonary edema. Subcentimeter metallic density focus of the left b reast again noted. Degenerative changes of the shoulders and spine. IMPRESSION: 1. Status post placement of a right-sided PICC. No postprocedural pneumothorax. 2. There is a new ill-defined right midlung opacity which is likely secondary to summation density. A mild pneumonia considered less likely. ACT 112: Negative or not required by law. The above report was generated using voice recognition software. It may contain grammatical, syntax o r spelling errors. Electronically signed by: Horacio Ramirez M.D. 08/29/2022 3:06 PM
--- NOTE | 2022-08-29 15:31 | Hospitalist Progress Note ---
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 due to lack of care at home, HLD, CVA, BPH, renal calculi presented to ED 08/23 for evaluation of generalized weakness. Patient had recently underwent cystoscopy on 08/14/2022. There was no evidence of tumor however there was evidence of bladder outlet obstruction and possible persistent UTI. Urine culture was obtained that showed no growth. Patient was placed on 7 days of empiric Bactrim. 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 He reports getting weak since about 1 month along with decreasing appetite. Is being managed for the following: Weakness: MAGY (acute kidney injury): resolved. Patient presenting from home with reports of generalized weakness and fall x 2. 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 Patient was placed on prophylactic Bactrim for 1 week. This could have contributed to worsening GI upset leading to poor p.o. intake, dehydration and subsequent MAGY/weakness. Pt now with better appetite, c/w PT/OT, will need rehab on DC. Fever possible Rt knee joint infection: No sepsis POA. Patient developed fever, T-max 39.6 C on 08/24 . Procalcitonin 08/24 elevated. Patient complained of RLE pain since 1 day on 08/24, has chronic discoloration to his rle Pt w/ warm and tender Rt knee joint, painful rom, XR knee ordered 08/25/reviewed Ortho evaled, s/p Arthroscopy Knee, Incision and Drainage, Chondroplasty, Partial Medial and Lateral Meniscectomy(Right) - Kolton York MD on 08/26/22 Zosyn 08/24 changed to cefepime 08/25 and vanco 08/25 ---ID evaled, c/w vanc only for total of 4 weeks, PICC line ordered 08/29. synvovial fluid w/ WBC > 50K; f/u Arthrocentesis and operative studies. Gram stain w/ GPC. Afebrile last few days. Reports better pain control at Rt knee, is feeling better. 08/23 blood culture. no growth 5 days. ID consult, appreciate recs. Elevated troponin/likely demand ischemia: Likely secondary to acute on chronic renal failure stage IIIa and acute illness. HS trop 549 then down trended, no acute ST changes on admitting EKG. Follow-up EKG with no changes. Echo with EF of 60 to 65%, LV size and systolic function normal, RV systolic function normal, grade 1 diastolic dysfunction Patient with no chest pain or shortness of breath on exam. Continue telemetry monitoring. History of DVT [RLE x3, LLE x1, PE x1]: Continue with home Eliquis, patient reported to be missing his home Eliquis intermittently per patient's friend Montse. RLE Doppler negative for acute DVT, has chronic nonocclusive DVT. Other chronic medical conditions: Stroke on ASA and statin, HTN [amlodipine recently stopped due to low BP], DM type II, BPH on finasteride and tamsulosin resume home meds as able DVT prophylaxis: On Eliquis Full code Dispo: awaiting placement, dieudonne crouch on iv vanc. Updated patient's friend Montse at bedside 08/24 and 08/26, 08/28, answered all her questions in detail, she voiced understanding and was agreeable to plan of care. Admission and Anticipated Discharge Date Admission Date: August 23, 2022 Subjective Patient seen and examined at bedside for follow-up of weakness, acute kidney injury, elevated troponin. Patient was lying in bed, on RA, s/p Rt knee washout for septic knee joint on 08/26, NAD, reports pain better controlled at right knee, is eating ok and moving bowels ok, no nausea/vomiting. Denies headache, chest pain, palpitation, other review of symptoms.Reports feeling better. Physical Exam Physical Exam: GENERAL: Alert and oriented x3. NAD, on RA. HEENT: No pallor, no icterus. Pupils equal, round and reactive to light. Oral mucosa moist. NECK: No JVD, no neck masses. HEART: S1 and S2 heard. Regular rate and rhythm. No murmur, no gallop. RESPIRATORY SYSTEM: Normal AP diameter. No accessory muscle use. No wheezing, no crackles. ABDOMEN: Soft, bowel sounds present, nontender, no distention. CENTRAL NERVOUS SYSTEM: No facial droop. Speech is clear. Obeys simple commands. Moves extremities. EXTREMITIES: No edema, no erythema seen on LLE. RLE w/ dressing over rt knee. Distal NV status wnl. Results & Data Results & Data ([facility]) Vital Signs (Past 12 Hours) Vital Signs Temp Pulse Pulse Resp BP Pulse Ox O2 Del Method 08/29/22 11:18 36.5 C 75 18 158/87 H 97 Room Air 08/29/22 11:16 75 08/29/22 07:09 36.5 C 76 18 143/82 H 98 Room Air
[2022-08-29] MEDS: oxyCODONE/ACETAMINOPHEN 5mg/325mg TAB PO PRN (17:48)
[2022-08-29 18:09] LABS: Lyme DNA PCR CSF or Synovial Not Detected (Not Detected); Lyme DNA Source SYNOVIAL FLUID
[2022-08-29] MEDS: ATORVASTATIN 40 MG TAB PO SCH (20:44)
[2022-08-30 07:10] LABS: Hematocrit (blood only) 25.3 % (42.0-52.0); Hemoglobin 8.5 g/dl (14.0-18.0); Mean Corpuscular Hemoglobin 30.1 pg (25.0-34.0); Mean Corpuscular Hgb Conc 33.6 g/dL (32.0-36.0); Mean Corpuscular Volume 89.7 fL (80.0-100.0); Platelet Count 299 K/uL (130-400); RDW Coefficient of Variation 15.5 % (11.5-14.5); RDW Standard Deviation 50.4 fL (36.4-46.3); Red Blood Count 2.82 M/uL (4.70-6.10)
[2022-08-30 07:32] LABS: Creatinine Clr Calc Pharmacy 59.5 ml/min; Est GFR (African American) 70.5 ml/min; Est GFR (Non-African American) 60.9 ml/min
[2022-08-30] MEDS: GABAPENTIN 300 MG CAP PO SCH ×2 (08:26→13:16)
[2022-08-30] MEDS: TAMSULOSIN HCL 0.4 MG CAP PO SCH (08:26)
[2022-08-30] MEDS: FERROUS SULFATE 325 MG TAB PO SCH (08:26)
[2022-08-30] MEDS: ASPIRIN 81 MG ECTAB PO SCH (08:26)
[2022-08-30] MEDS: PROPRANOLOL HCL 10 MG TAB PO SCH (08:26)
[2022-08-30] MEDS: DOCUSATE SODIUM 100 MG CAP PO SCH (08:26)
[2022-08-30] MEDS: PANTOprazole 40 MG TAB PO SCH (08:26)
[2022-08-30] MEDS: APIXABAN 5 MG TABLET PO SCH (08:26)
[2022-08-30] MEDS: FINASTERIDE 5 MG TAB PO SCH (08:26)
[2022-08-30] MEDS: INSULIN ASPART PER UNIT SC SCH ×2 (08:27→12:42)
[2022-08-30] MEDS: VANCOMYCIN HCL 1,500 MG in SODIUM CHLORIDE 0.9% 500 ML IV SCH (08:33)
--- NOTE | 2022-08-30 10:36 | Orthopedic Progress Note ---
Date of Service August 30, 2022 Assessment & Plan (1) Knee pain, right: Plan: IMPRESSION: POD #4 s/p arthroscopic I&D + chondroplasty and partial medial and lateral meniscectomies right knee secondarily to questionable infection, gram + cocci? PLAN: New dressing applied today. applied light dressing with tegaderm He may shower with new dressings in place. Continue DVT Prophylaxis: Eliquis, TEDs, and SCD's. WBAT with walker, progressing as tolerated. PT/OT - ROM as tolerated Ice and elevate with towels/blankets under ankle Continue pain control. Continue care per primary service. Continue to monitor microbiology, even though lab re-read gram stain and both as pirates now without any organisms. Patient was seen virtually by infectious disease yesterday. Recommendation was to discontinue the cefepime and continue vancomycin. It was also recommended that the patient may need at least 4 weeks of IV antibiotics upon discharge. D/C planning. Follow up in 2 weeks with [facility] Admission and Anticipated Discharge Date Admission Date: August 23, 2022 Subjective Patient doing well, no complaints of pain in right knee. States that he has been out of bed, walking around, using walker. Notices improvements each day. Physical Exam Musculoskeletal: Small effusion right knee, nontender, no warmth. Able to independently SLR RLE and flex knee to about 80 degrees actively. Tolerated full hip and ankle ROM. Distal pulses 1+, normal sensation. Incisions are clean, dry and intact. Mild bloody drainage on previous dressings. Skin healthy. Results & Data ([facility]) Vital Signs (Past 12 Hours) Vital Signs Temp Pulse Pulse Resp BP Pulse Ox O2 Del Method 08/30/22 09:37 66 08/30/22 07:56 36.5 C 68 18 149/73 H 99 Room Air 08/30/22 00:00 62 08/30/22 03:11 36.4 C L 77 17 158/91 H 96 Room Air 08/29/22 23:05 36.3 C L 67 17 130/71 96 Room Air Laboratory Results 08/30/22 08/30/22 08/30/22 Range/Units 07:45 06:39 06:39 WBC 7.40 (4.8-10.8) K/ul RBC 2.82 L (4.70-6.10) M/uL Hgb 8.5 L (14.0-18.0) g/dl Hct 25.3 L (42.0-52.0) % MCV 89.7 (80.0-100.0) fL MCH 30.1 (25.0-34.0) pg MCHC 33.6 (32.0-36.0) g/dL RDW Std Deviation 50.4 H (36.4-46.3) fL RDW Coeff of Aranza 15.5 H (11.5-14.5) % Plt Count 299 (130-400) K/uL MPV 9.0 L (9.4-12.4) fL Creatinine 1.18 (0.6-1.4) mg/dl Est Cr Clr Drug Dosing 59.5 ml/min Est GFR ( Amer) 70.5 ml/min Est GFR (Non-Af Amer) 60.9 ml/min POC Glucose 199 H (70-99) mg/dl Fld Lyme DNA (PCR) (Not Detected) Lyme Specimen Source Lyme DNA Comment 08/29/22 08/29/22 08/29/22 Range/Units 20:19 16:49 12:16 WBC (4.8-10.8) K/ul RBC (4.70-6.10) M/uL Hgb (14.0-18.0) g/dl Hct (42.0-52.0) % MCV (80.0-100.0) fL MCH (25.0-34.0) pg MCHC (32.0-36.0) g/dL RDW Std Deviation (36.4-46.3) fL RDW Coeff of Aranza (11.5-14.5) % Plt Count (130-400) K/uL MPV (9.4-12.4) fL Creatinine (0.6-1.4) mg/dl Est Cr Clr Drug Dosing ml/min Est GFR ( Amer) ml/min Est GFR (Non-Af Amer) ml/min POC Glucose 191 H 142 H 181 H (70-99) mg/dl Fld Lyme DNA (PCR) (Not Detected) Lyme Specimen Source Lyme DNA Comment 08/25/22 Range/Units Unknown WBC (4.8-10.8) K/ul RBC (4.70-6.10) M/uL Hgb (14.0-18.0) g/dl Hct (42.0-52.0) % MCV (80.0-100.0) fL MCH (25.0-34.0) pg MCHC (32.0-36.0) g/dL RDW Std Deviation (36.4-46.3) fL RDW Coeff of Aranza (11.5-14.5) % Plt Count (130-400) K/uL MPV (9.4-12.4) fL Creatinine (0.6-1.4) mg/dl Est Cr Clr Drug Dosing ml/min Est GFR ( Amer) ml/min Est GFR (Non-Af Amer) ml/min POC Glucose (70-99) mg/dl Fld Lyme DNA (PCR) Not Detected (Not Detected) Lyme Specimen Source SYNOVIAL FLUID Lyme DNA Comment see note
[2022-08-30] MEDS: oxyCODONE/ACETAMINOPHEN 5mg/325mg TAB PO PRN (11:13)
[2022-08-31] MEDS ORDERED: VANCOMYCIN LEVEL ONE (08:30)
--- NOTE | 2022-09-02 17:15 | Discharge Summary ---
Date of Service August 30, 2022 Admission HPI Per Admitting Provider 71-year-old male with PMH DM type II, dyslipidemia, history of DVT and PE on Eliquis, HTN, history of CVA, BPH, renal calculi, and other problems listed below who presents to the ED for evaluation of generalized weakness. Patient recently admitted to [facility] 08/04 through 08/06 for hematuria and MAGY. Patient underwent cystoscopy on 08/14/2022. There was no evidence of tumor however there was evidence of bladder outlet obstruction and possible persistent UTI. Urine culture was obtained that showed no growth. Patient was placed on 7 days of empiric Bactrim. Patient reports that 3 days ago, he developed poor appetite and generalized weakness. He has had some intermittent nausea however no vomiting. Denies abdominal pain. Hematuria has resolved. He has had 2 falls in the past 3 days. This morning, while patient was getting out of bed, he reports his legs were very weak and he slid to the ground. He denies loss of consciousness or striking his head. No fevers or chills. Denies lightheadedness, dizziness, diaphoresis, syncopal events. Reports mild shortness of breath at rest which is new for him. No chest pain or palpitations. Denies dysuria. In the ED, patient is hemodynamically stable. Labs show Na+ 130, creatinine 2.1, troponin 549. EKG without acute ST changes. UA pending. Patient was given IVF and full dose aspirin. Principal Diagnosis Right knee septic arthritis Sepsis MAGY Debility/weakness Demand Ischemia Discharge Exam Patient was seen and examined on the day of discharge. Feels well. No issues overnight. Denies chest pain, shortness of breath Discharge Data Allergies Allergy/AdvReac Type Severity Reaction Status Date / Time No Known Allergies Allergy Verified 08/23/22 12:42 Consultations 08/23/22 12:27 ED Decision to Admit Stat 08/25/22 11:23 Consult Orthopedic Surgery Routine 08/26/22 12:29 Consult Infectious Diseases Routine Procedures Performed Operation Date: 08/26/22 08:05 Actual Procedures p Arthroscopy Knee, Incision and Drainage, Chondroplasty, Partial Medial and Lateral Meniscectomy(Right) - Kolton York MD Ordered Studies 08/24/22 11:29 US venous doppler LE RT Routine Hospital Course (1) MAGY (acute kidney injury): Plan 68-year-old male with PMH of T2DM, 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 Patient had recently underwent cystoscopy on 08/14/2022. There was no evidence of tumor however there was evidence of bladder outlet obstruction and possible persistent UTI. Urine culture was obtained that showed no growth. Patient was placed on 7 days of empiric Bactrim. 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 He reports getting weak since about 1 month along with decreasing appetite. Is being managed for the following: Weakness: MAGY (acute kidney injury) Patient presenting from home with reports of generalized weakness and fall x 2. 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 Patient was placed on prophylactic Bactrim for 1 week. This could have contributed to worsening GI upset leading to poor oral intake, dehydration and subsequent MAGY/weakness. Evaluated by PT/OT and rehab recommended Sepsis Right septic knee No sepsis POA. Patient developed fever, T-max 39.6 C on 08/24 . Procalcitonin 08/24 elevated. Patient complained of RLE pain on 08/24, has chronic discoloration to his right lower extremity Underwent Arthroscopy Knee, Incision and Drainage, Chondroplasty, Partial Medial and Lateral Meniscectomy(Right) - Kolton York MD on 08/26/22 Initially placed on Zosyn which was later changed to cefepime and vancomycin on 08/25 Telemedicine ID consultation recommends 4 weeks of vancomycin Blood culture remains negative PICC line placed prior to discharge. Remove line once antibiotic course is completed Weekly CBC, BMP while on antibiotics Elevated troponin/likely demand ischemia Likely secondary to acute on chronic renal failure stage IIIa and sepsis Echo with EF of 60 to 65%, LV size and systolic function normal, RV systolic function normal, grade 1 diastolic dysfunction History of DVT [RLE x3, LLE x1, PE x1] Continue with home Eliquis, patient reported to be missing his home Eliquis intermittently per patient's friend Montse. RLE Doppler negative for acute DVT, has chronic nonocclusive DVT. Patient discharged to [facility] in stable condition. Total Time Total Time Spent Total Time Spent (In Minutes): 40 Discharge Plan Discharge Items Patient Disposition: Transfer Longterm Fac Reason For Visit: WEAKNESS, MAGY, ELEVATED TROPONIN Discharge Diagnosis: Right knee septic arthritis Condition on Discharge: Good Activity: Per Instructions section Non-emergency contact: Primary Care Provider and Surgeon Call non-emergency contact if: you have any medication questions and you have a fever Follow-up/Referrals: Lorri Dacosta PA-C [Physician Corporate Manager] - 09/08/22 9:00 am Keo Patrick, [Primary Care Provider] - Diet: Carb Consistent or DM2 Diet Texture: Dental soft (bite-sized) Addtl Attending Provider Instructions: Antibiotic management: 4 weeks IV vancomycin. Last day 09/23/2022. Discontinue PICC line when antibiotic finishes Vancomycin 1.5gm IV Q 24 hours (given at 9am while here). Maintain Vancomycin trough 15-20. 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 Progressing as tolerated -New dressing applied today. Applied light dressing with tegaderm. May shower with new dressings in place -PT/OT--ROM as tolerated -Ice and elevate. Towels/blankets under right ankle -DVT prophylaxis: Eliquis as prescribed by primary service, [place] stockings for three weeks -Please follow up as schedule in the office, 09/08 @ 9am with Jessica Dacosta PA-C for post-operative check Pending Studies at Discharge: No Stand-Alone Forms: [facility] Skilled Items Patient informed of condition?: Yes DNR: No Discharge Level of Care: Skilled Communicable Disease: No Discharge Prognosis: Stable Lines: PICC Urinary Catheter: No Medications and DC Order Prescriptions: New oxycodone-acetaminophen [Percocet] 5-325 mg Tablet 1 tab PO Q6H PRN (Reason: pain) 5 Days Qty: 10 0RF docusate sodium 100 mg Capsule 100 mg PO BID 7 Days Qty: 14 0RF polyethylene glycol 3350 [Miralax] 17 gram Powder In Packet 17 g PO DAILY PRN (Reason: constipation) 14 Days Qty: 14 0RF pantoprazole 40 mg Tablet,Delayed Release (Dr/Ec) 40 mg PO QAM 7 Days Qty: 7 0RF vancomycin 1.5 gram recon soln 1.5 g IV Q24H 28 Days Qty: 30 0RF Rx Instructions: Vancomycin 1.5 gm IV Q 24 hours. Continued Eliquis 5 mg Tablet 5 mg PO BID 30 Days Qty: 60 3RF metformin 1,000 mg tablet 1,000 mg PO BIDM ferrous sulfate [FeroSul] 325 mg (65 mg iron) tablet 325 mg PO AMHS propranolol 10 mg tablet 10 mg PO BID tamsulosin 0.4 mg capsule 0.4 mg PO QAM finasteride 5 mg tablet 5 mg PO DAILY gabapentin [Neurontin] 300 mg capsule 300 mg PO TID atorvastatin [Lipitor] 40 mg tablet 40 mg PO HS aspirin [Bong Low Dose Aspirin] 81 mg tablet,delayed release (DR/EC) 81 mg PO QAM Cinnamon Caps 1,200 mg PO TID Discharge Orders: Discharge Order (Routine); Ordered 08/30/22 Ordered By: Heaven Young Admission Data Admit Date/Time: 08/23/22 13:19 Attending Provider: Heaven Young Admit Provider: Dunia Dejesus Primary Care Provider: Keo Patrick Other Providers: [facility] ; Dunia Dejesus ; Kolton York ; Nikolai Lind ; Niru Castle ; Reymundo Hernandez I. ; Wm Horvath II ; Yashira Cowan ; Scotty Barriga ; Jose De Jesus Powell ; Vladimir Villarreal ; Mimi Bynum Other Interventions: Discharge Summary Assessment (RN) Last Done: 08/30/22 14:55
== END 2022-08-30 15:31 | DRG 486 ==
LOC: ED 09:00 → EDINP 13:19 → SUATTDRO 13:19 → 4W 16:27

== ENCOUNTER 2024-05-08 11:25 | Inpatient (IN) ==
--- NOTE | 2024-05-08 11:47 | CT Scan Report ---
CT SCAN OF THE BRAIN WITHOUT IV CONTRAST CLINICAL HISTORY: Left-sided neurological deficits. Left-sided facial droop. COMPARISON STUDY: Prior CT scans of the brain, most recently dated 05/07/2024. TECHNIQUE: Unenhanced axial CT scan of the brain is performed from the vertex to the skull base. A do se lowering technique was utilized adhering to the principles of ALARA. FINDINGS: Brain parenchyma: Foci of right frontal, right temporal, and bilateral parietal encephalomalacia are unchanged and consistent with remote insults. There is age-related involutional change noting mild torres bcortical and periventricular microangiopathic disease. There is no hemorrhage, mass effect, or evide nce of acute territorial ischemia by CT criteria. Hatfield-white matter differentiation is preserved. No extra-axial fluid collection is seen. Ventricles, sulci, cisterns: Prominent secondary to involutional change. Intracranial vasculature: There is atherosclerotic calcification of the cavernous carotid and vertebr al arteries. Calvarium: Unremarkable. Sinuses and mastoids: The visualized paranasal sinuses are clear. There are bilateral mastoid effusio ns. Orbits: The bony orbits are grossly intact. IMPRESSION: Chronic changes as above with no hemorrhage, mass effect, or evidence of acute territoria l ischemia by CT criteria. No appreciable change from yesterday. ACT 112: Negative or not required by law. Electronically signed by: Rick Stone M.D. 05/08/2024 11:45 AM
--- NOTE | 2024-05-08 11:55 | Emergency Department Note ---
History of Present Illness General Chief complaint: TIA Symptoms Stated complaint: HEADACHE, BLURRY VISION, LEFT SIDE FACIAL DROOP Time Seen by Provider: 05/08/24 11:33 Source: patient and family History of Present Illness Provider complaint: Strokelike symptoms Onset (ago): day(s) 1 73-year-old male presents emergency department for strokelike symptoms. Patient states that yesterday he started noticing difficulty speaking and left-sided facial droop. He and the family ember at bedside stated they presented to the emergency department with diagnosed with TIA and discharged home. He states when he got home yesterday at 5 PM he started having a headache. He states when he woke up this morning he noticed he was having left-sided facial droop and some difficulty speaking. Patient is on Eliquis. He states he took his Eliquis this morning prior to arrival. Home Medications Medication Instructions Recorded Confirmed Type apixaban 5 mg tablet (Eliquis) 5 mg PO BID 30 days #60 tabs 02/02/21 05/08/24 Rx metformin 1,000 mg tablet 1,000 mg PO BIDM 02/12/21 05/08/24 History aspirin 81 mg tablet,delayed 81 mg PO QAM 03/29/21 05/08/24 History release (Bong Low Dose Aspirin) atorvastatin 40 mg tablet (Lipitor) 40 mg PO QAM 03/29/21 05/08/24 History gabapentin 300 mg capsule 600 mg PO BID 03/29/21 05/08/24 History (Neurontin) propranolol 10 mg tablet 10 mg PO BID 07/28/22 05/08/24 History tamsulosin 0.4 mg capsule 0.4 mg PO QAM 08/23/22 05/08/24 History Stool Softener 1 tab PO .EVERY OTHER DAY 05/08/24 05/08/24 History finasteride 5 mg tablet 5 mg PO QAM 05/08/24 05/08/24 History Allergies Allergy/AdvReac Type Severity Reaction Status Date / Time No Known Allergies Allergy Verified 08/23/22 12:42 Past Med/Surg History Problem List (Updated 05/08/24 @ 16:49 by Arsen Ribeiro MD) Stroke-like symptoms Thrombocytopenia (Acute) Anemia (Acute) H/O: CVA (cerebrovascular accident) (Acute) Brain TIA (Acute) Type 2 diabetes mellitus Osteoarthritis Benign localized prostatic hyperplasia with lower urinary tract symptoms (LUTS) History of stroke History of DVT (deep vein thrombosis) (Chronic) 1993- Diabetes mellitus, type 2 (Chronic) NIDDM BPH (benign prostatic hypertrophy) (Chronic) Dyslipidemia (Chronic) Medical History Knee pain, right MAGY (acute kidney injury) Weakness MAGY (acute kidney injury) Elevated troponin Anemia Kidney stones Stroke 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 ischemic stroke, residual mild weakness and short- term memory impairment Pulmonary embolism 1993- Hydronephrosis with urinary obstruction due to ureteral calculus Hypertension Surgical History History of back surgery No hardware History of cystoscopy Cystoscopy, left retropyelogram, Left ureteral stent placement (03/30/21): LMA#4 at [facility] H/O colonoscopy History of tympanoplasty of right ear Status post appendectomy Family History Uncle Family history of diabetes mellitus Other Heart disease Social History Smoking Status: Never smoker Tobacco Type: Cigarettes Second Hand Exposure: Yes (FRIEND'S SPOUSE SMOKES-STAYING AT THEIR HOUSE CURRENTLY); Do You Dip or Chew Tobacco: No; Hx Alcohol Use: No Hx Substance Use: No Preferred Language: Danish Communication Ability: Effective Differential Specialist Required: No Beliefs That Will Affect Care: None marital status: / Current Living Situation: Other Current Living Situation Comment: Lives with friends [place] current occupation: NOT WORKING How many Children do You have: 0 Feels Safe at Home: Yes Assistive Devices: None Physical Exam Vital Signs Vital Signs - 24 hr 05/08/24 11:27 05/08/24 11:44 05/08/24 11:53 Temperature 36.4 C L Temperature Source Temporal Artery Scan Pulse Rate 64 60 Pulse Rate [Right Finger] 62 Respiratory Rate 18 22 Respiratory Effort / Characteristics Non-Labored Spontaneous Non-Labored Spontaneous Respiratory Depth Normal Normal Respiratory Pattern Regular Regular Blood Pressure 165/117 H Blood Pressure [Right Arm] 170/102 H Blood Pressure Mean 133 Blood Pressure Mean [Right Arm] 124 Pulse Oximetry 96 98 Oxygen Delivery Method Room Air Room Air Sepsis Recent Fever Within 48 Hours No Sepsis New/Unexplained Change in Mental Status N/A Sepsis Action Taken by Nursing No Action Required 05/08/24 11:55 05/08/24 12:00 Temperature Temperature Source Pulse Rate 64 Pulse Rate [Right Finger] 70 Respiratory Rate 12 Respiratory Effort / Characteristics Non-Labored Spontaneous Respiratory Depth Normal Respiratory Pattern Blood Pressure Blood Pressure [Right Arm] 139/88 Blood Pressure Mean Blood Pressure Mean [Right Arm] 105 Pulse Oximetry 96 98 Oxygen Delivery Method Room Air Room Air Sepsis Recent Fever Within 48 Hours Sepsis New/Unexplained Change in Mental Status Sepsis Action Taken by Nursing Physical Exam GENERAL: oriented to person, place, and time. appears well-developed and well- nourished. HENT: Exam performed. - Head: Normocephalic and atraumatic. EYES: Conjunctivae and EOM are normal. Right eye exhibits no discharge. Left eye exhibits no discharge. No scleral icterus. NECK: Normal range of motion. Neck supple. No JVD present. CV: Normal rate, regular rhythm, normal heart sounds and intact distal pulses. There is no peripheral edema. Palpable radial pulses bue. PULM/CHEST: Effort normal and breath sounds normal. No respiratory distress. No stridor. no wheezes. no rales. ABD: The abdomen is soft. There is no tenderness. NEURO: Left-sided facial droop. Motor and sensation grossly intact. Patient alert and oriented x 3. SKIN: Skin is warm and dry. He is not diaphoretic. PSYCH: normal mood and affect. Behavior is normal. Judgment and thought content normal. Course Course 1133: The patient was evaluated in room A1. A complete history and physical exam was performed Cardiac monitoring: An order was placed for continuous cardiac monitoring. The monitor shows a rate of 70 with sinus rhythm interpreted by ct 1140: CT of the head viewed by me shows no ICH. External medical records reviewed. When compared to the CT of the head performed yesterday there is no significant change. Patient's creatinine from yesterday 1.44. Given the patient's not a TNK candidate as he woke up with the symptoms, took Eliquis this morning, and his CT of the head looks unchanged, will forego CTA of the head and neck at this time since yesterday it showed no large vessel occlusion. Discussed the case with Dr. Barrientos radiology and he agrees that there is no significant change in the patient's CT of the head. He agrees no need for CTA of the head and neck at this time. 1154: [facility] symptoms of [facility]A and the fact that he is not a TNK candidate. Aspirin ordered for the patient. 1213: Spoke with DARCY Navarro who stated to admit to Dr. Dale Administered Medications Discontinued Medications Aspirin (Aspirin Chew 324 Mg) 324 mg PO NOW STA Stop: 05/08/24 11:56 Last Admin: 05/08/24 12:02 Dose: 324 mg Documented By: RENE Clopidogrel Bisulfate (Clopidogrel Bisulfate 75 Mg Tab) 75 mg PO NOW ONE Stop: 05/08/24 12:48 Last Admin: 05/08/24 13:59 Dose: 75 mg Documented By: CELY Medical Decision Making Laboratory Data Attestation: I reviewed the patient's lab results. 05/08/24 11:47 05/08/24 11:47 Lab Results 05/08/24 05/08/24 05/08/24 Range/Units 11:45 11:47 12:01 WBC 6.69 (4.8-10.8) K/ul RBC 3.58 L (4.70-6.10) M/uL Hgb 11.1 L (14.0-18.0) g/dl Hct 31.8 L (42.0-52.0) % MCV 88.8 (80.0-100.0) fL MCH 31.0 (25.0-34.0) pg MCHC 34.9 (32.0-36.0) g/dL RDW Std Deviation 47.8 H (36.4-46.3) fL RDW Coeff of Aranza 14.7 H (11.5-14.5) % Plt Count 100 L (130-400) K/uL MPV 10.4 (9.4-12.4) fL Immature Gran % (Auto) 1.2 % Neut % (Auto) 72.1 % Lymph % (Auto) 16.9 % [place] % (Auto) 6.0 % Eos % (Auto) 3.1 % Baso % (Auto) 0.7 % Neut # (Auto) 4.82 (1.40-6.50) K/uL Lymph # (Auto) 1.13 L (1.20-3.40) K/uL [place] # (Auto) 0.40 (0.11-0.59) K/uL Eos # (Auto) 0.21 (0.00-0.50) K/uL Baso # (Auto) 0.05 (0.00-0.20) K/uL Immature Gran # (Auto) 0.08 (0.01-0.20) K/uL PT 11.4 (9.0-12.0) Seconds INR 1.1 (0.9-1.1) APTT 31 (21-31) Seconds PTT Ratio 1.2 Sodium 140 (136-145) mmol/L Potassium 4.5 (3.5-5.1) mmol/L Chloride 107 (98-107) mmol/L Carbon Dioxide 25 (21-32) mmol/L Anion Gap 8 (3-11) BUN 25 H (6-23) mg/dl Creatinine 1.45 H (0.6-1.4) mg/dl Est Cr Clr Drug Dosing 49.5 ml/min eGFR 50.25 BUN/Creatinine Ratio 17.2 (10-20) Glucose 144 H (70-99(Fasting)) mg/dl POC Glucose 150 H (70-99) mg/dl Calcium 9.0 (8.6-10.3) mg/dl Magnesium 1.8 (1.7-2.4) mg/dl Total Bilirubin 0.6 (0.2-1.0) mg/dl AST 24 (13-39) U/L ALT 20 (7-52) U/L Alkaline Phosphatase 67 (34-104) U/L Troponin I High Sens 6.4 (0-20) pg/ml Total Protein 6.2 (6.0-8.3) gm/dl Albumin 4.0 (3.4-5.0) gm/dl Globulin 2.2 L (2.5-4.0) gm/dl Albumin/Globulin Ratio 1.8 (0.9-2) Blood Type O Positive Antibody Screen NEGATIVE Imaging Data Attestation: I personally reviewed and interpreted this imaging study as follows: My Impression: CT head: No ICH. No significant change from the CT done yesterday. Radiologist's Impression: Head CT 05/08/24 11:34 CT SCAN OF THE BRAIN WITHOUT IV CONTRAST CLINICAL HISTORY: Left-sided neurological deficits. Left-sided facial droop. COMPARISON STUDY: Prior CT scans of the brain, most recently dated 05/07/2024. TECHNIQUE: Unenhanced axial CT scan of the brain is performed from the vertex to the skull base. A dose lowering technique was utilized adhering to the principles of ALARA. FINDINGS: Brain parenchyma: Foci of right frontal, right temporal, and bilateral parietal encephalomalacia are unchanged and consistent with remote insults. There is age- related involutional change noting mild subcortical and periventricular microangiopathic disease. There is no hemorrhage, mass effect, or evidence of acute territorial ischemia by CT criteria. [place]-white matter differentiation is preserved. No extra-axial fluid collection is seen. Ventricles, sulci, cisterns: Prominent secondary to involutional change. Intracranial vasculature: There is atherosclerotic calcification of the cavernous carotid and vertebral arteries. Calvarium: Unremarkable. Sinuses and mastoids: The visualized paranasal sinuses are clear. There are bilateral mastoid effusions. Orbits: The bony orbits are grossly intact. IMPRESSION: Chronic changes as above with no hemorrhage, mass effect, or evidence of acute territorial ischemia by CT criteria. No appreciable change from yesterday. ACT 112: Negative or not required by law. Electronically signed by: Rick Stone M.D. 05/08/2024 11:45 AM ECG Data Attestation: I personally reviewed and interpreted this ECG as follows: Rate (beats per minute): 66 Rhythm: + normal sinus ECG Intervals/blocks: + Normal [place] and + Normal QT-c ECG ST segments: + Normal ST segments Additional Comments: QRS 78 MDM Narrative 1133: The patient was evaluated in room A1. A complete history and physical exam was performed Cardiac monitoring: An order was placed for continuous cardiac monitoring. The monitor shows a rate of 70 with sinus rhythm interpreted by me 1140: CT of the head viewed by me shows no ICH. External medical records reviewed. When compared to the CT of the head performed yesterday there is no significant change. Patient's creatinine from yesterday 1.44. Given the patient's not a TNK candidate as he woke up with the symptoms, took Eliquis this morning, and his CT of the head looks unchanged, will forego CTA of the head and neck at this time since yesterday it showed no large vessel occlusion. Discussed the case with Dr. Barrientos radiology and he agrees that there is no significant change in the patient's CT of the head. He agrees no need for CTA of the head and neck at this time. 1154: [facility] of [facility]A and the fact that he is not a TNK candidate. Aspirin ordered for the patient. 1213: Spoke with DARCY Navarro who stated to admit to Dr. Dale Impression & Plan Brain TIA Discharge Plan Visit Data Chief Complaint: TIA Symptoms Stated Complaint: HEADACHE, BLURRY VISION, LEFT SIDE FACIAL DROOP ED Provider: Arsen Ribeiro Discharge Problem: Brain TIA Patient Disposition: Admitted As Inpatient
[2024-05-08] MEDS: ASPIRIN CHEW 324 MG PO STA (12:02)
[2024-05-08 12:04] LABS: Basophils # (auto) 0.05 K/uL (0.00-0.20); Basophils % (auto) 0.7 %; Eosinophils # (auto) 0.21 K/uL (0.00-0.50); Eosinophils % (auto) 3.1 %; Hematocrit (blood only) 31.8 % (42.0-52.0); Hemoglobin 11.1 g/dl (14.0-18.0); Immature Granulocytes # (auto) 0.08 K/uL (0.01-0.20); Immature Granulocytes % (auto) 1.2 %; Lymphocytes # (auto) 1.13 K/uL (1.20-3.40); Lymphocytes % (auto) 16.9 %; Mean Corpuscular Hgb Conc 34.9 g/dL (32.0-36.0); Mean Corpuscular Volume 88.8 fL (80.0-100.0); Mean Platelet Volume 10.4 fL (9.4-12.4); Neutrophils # (auto) 4.82 K/uL (1.40-6.50); Neutrophils % (auto) 72.1 %; Platelet Count 100 K/uL (130-400); RDW Coefficient of Variation 14.7 % (11.5-14.5); RDW Standard Deviation 47.8 fL (36.4-46.3); Red Blood Count 3.58 M/uL (4.70-6.10); White Blood Count 6.69 K/ul (4.8-10.8)
[2024-05-08 12:15] LABS: Albumin Globulin Ratio 1.8 (0.9-2); BUN Creatinine Ratio 17.2 (10-20); Bilirubin,Total 0.6 mg/dl (0.2-1.0); Creatinine Clr Calc Pharmacy 49.5 ml/min; Globulin 2.2 gm/dl (2.5-4.0); Magnesium 1.8 mg/dl (1.7-2.4); Potassium 4.5 mmol/L (3.5-5.1); Total Protein 6.2 gm/dl (6.0-8.3)
--- NOTE | 2024-05-08 12:18 | History & Physical Report ---
Date of Service May 08, 2024 Assessment & Plan (1) Stroke-like symptoms: (2) History of DVT (deep vein thrombosis): (3) Dyslipidemia: (4) Diabetes mellitus, type 2: (5) BPH (benign prostatic hypertrophy): Plan Mr. Solis is a 73 year old male that presented to the ED today with complaints of left sided facial droop, frontal headache, blurry vision, and expressive aphagia. He was in the emergency room yesterday for similar symptoms minus the double blurry vision. A full stroke workup was completed with a head CT and head neck MRIs that were negative for ICH, SDH, stroke or large vessel occlusion. 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 Add'l PMH: NIDDM2, HLD, thrombocytopenia, and BPH spent status post LUTS procedure. In the ED today head CT was performed for reimaging and negative for acute stroke. Patient does take a baby ASA and Eliquis. non-smoker. Not a TNK candidate given that he is on an anticoagulant and his symptoms has persisted for the last 24 hours. Slightly hypertensive 169/100; will allow permissive HTN until MRI has been obtained. Patient lives with a friend and her . The friend states that he has historically had expressive aphasia after his strokes and she noticed some gurgling in the back of his throat with certain movements. Patient's lungs CTA and I suspect that this is more of a loss of esophageal reflex given his history of stroke. He will be admitted for further evaluation and management of his acute strokelike symptoms. Will obtain brain MRI, echocardiogram, rule out Lyme's, PT/OT/ST, remain n.p.o. until cleared with dysphagia screen. Given that patient is compliant with medications and has been taking aspirin we will switch over to Plavix. With close monitoring of platelets. Stroke-Like symptoms: Acute Head CT negative today and on 05/07 for ICH, SDH and midline shift. Head/neck CTA negative 05/07 for any lg vessel occlusion No recent illnesses; no leukocytosis Loaded with ASA 324 in ED today Brain MRI c/co contrast ordered; creatinine 1.45 Order ECHO; last ECHO 01/2023: Takes Lipitor 40 mg daily; continue Repeat lipid panel PT/OT/ST Dysphagia screen; NPO until cleared Will order Plavix given that continued symptoms on ASA; already on Eliquis Monitor plt counts with starting Plavix Neuro consult placed History of PE/DVT: Chronic On Eliquis; continue HLD: Chronic Takes Lipitor 40 mg daily; continue NIDDM2: chronic Last A1C 03/06/24 7.5 Takes Metformin; hold while inpt and place on SSI achs BPH: Chronic s/p LUTS Takes Tamsulosin; continue Disposition: PCP: Dr. Patrick Code Status: Full code VTE Prophylaxis: On Eliquis Estimated LOS: 1-2 days I spent a total of 87 minutes coordinating, documenting, and providing care for this patient excluding time spent in the performance of separately billed services. All of the aforementioned completed while collaborating with the assigned attending physician for a full treatment plan. Please see their addendum for further details. History of Present Illness Chief Complaint: stroke like symptoms Primary Care Provider: Keo Patrick DO Mr. Solis is a 73 year old male that presented to the ED today with complaints of left sided facial droop, frontal headache, blurry vision, and expressive aphagia. He was in the emergency room yesterday for similar symptoms minus the double blurry vision. A full stroke workup was completed with a head CT and head neck MRIs that were negative for ICH, SDH, stroke or large vessel occlusion. Patient has a history of 2 strokes with the first 1 being December 2020 and the second 1 being 05/18/2021. The stroke was located in the right MCA. He also has a history of DVT/PE from 1993 and is currently on Eliquis. Additional past medical history includes [id number] DM2, HLD, thrombocytopenia, and BPH spent status post lots procedure. In the ED today head CT was performed for reimaging and negative for acute stroke. Patient does take a baby aspirin and daily Eliquis. Patient is a non-smoker, no alcohol or recreational drug use including medical marijuana Patient is not a TNK candidate given that he is on an anticoagulant and his symptoms has persisted for the last 24 hours. Most recent A1c dates from March 06, 2024 at 7.5. Patient currently denies headache, dizziness, shortness of breath, chest pain, palpitations, nausea, vomiting, diarrhea, abdominal pain or tenderness, flank pain, hematochezia, urinary changes, recent falls or trauma. Patient is slightly hypertensive 169/100; will allow permissive HTN until MRI has been obtained. Patient lives with a friend and her . The friend states that he has historically had expressive aphasia after his strokes and she noticed some gurgling in the back of his throat with certain movements. Patient 's lungs CTA and I suspect that this is more of a loss of esophageal reflex given his history of stroke. Patient will be admitted for further evaluation and management of his acute strokelike symptoms. Will obtain brain MRI, echocardiogram, rule out Lyme's, PT/OT/ST, remain n.p.o. until cleared with dysphagia screen. Given that patient is compliant with medications and has been taking aspirin we will switch over to Plavix. With close monitoring of platelets. Allergies Allergy/AdvReac Type Severity Reaction Status Date / Time No Known Allergies Allergy Verified 08/23/22 12:42 Home Medications Medication Instructions Recorded Confirmed Type apixaban 5 mg tablet (Eliquis) 5 mg PO BID 30 days #60 tabs 02/02/21 05/08/24 Rx metformin 1,000 mg tablet 1,000 mg PO BIDM 02/12/21 05/08/24 History aspirin 81 mg tablet,delayed 81 mg PO QAM 03/29/21 05/08/24 History release (Bong Low Dose Aspirin) atorvastatin 40 mg tablet (Lipitor) 40 mg PO QAM 03/29/21 05/08/24 History gabapentin 300 mg capsule 600 mg PO BID 03/29/21 05/08/24 History (Neurontin) propranolol 10 mg tablet 10 mg PO BID 07/28/22 05/08/24 History tamsulosin 0.4 mg capsule 0.4 mg PO QAM 08/23/22 05/08/24 History Stool Softener 1 tab PO .EVERY OTHER DAY 05/08/24 05/08/24 History finasteride 5 mg tablet 5 mg PO QAM 05/08/24 05/08/24 History Past Med/Surg History Problem List (Updated 05/08/24 @ 16:49 by Arsen Ribeiro MD) Stroke-like symptoms Thrombocytopenia (Acute) Anemia (Acute) H/O: CVA (cerebrovascular accident) (Acute) Brain TIA (Acute) Type 2 diabetes mellitus Osteoarthritis Benign localized prostatic hyperplasia with lower urinary tract symptoms (LUTS) History of stroke History of DVT (deep vein thrombosis) (Chronic) Eliquis Diabetes mellitus, type 2 (Chronic) NIDDM BPH (benign prostatic hypertrophy) (Chronic) Dyslipidemia (Chronic) Medical History Knee pain, right MAGY (acute kidney injury) Weakness MAGY (acute kidney injury) Elevated troponin Anemia Kidney stones Stroke 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 ischemic stroke, residual mild weakness and short- term memory impairment Pulmonary embolism 1993- Hydronephrosis with urinary obstruction due to ureteral calculus Hypertension Surgical History History of back surgery No hardware History of cystoscopy Cystoscopy, left retropyelogram, Left ureteral stent placement (03/30/21): LMA#4 at [facility] H/O colonoscopy History of tympanoplasty of right ear Status post appendectomy Family History Uncle Family history of diabetes mellitus Other Heart disease Social History Smoking Status: Former smoker Tobacco Type: Cigarettes Second Hand Exposure: No; Do You Dip or Chew Tobacco: No; Tobacco Cessation Education Requested by Patient: No Hx Alcohol Use: No Hx Substance Use: No Preferred Language: Lebanese Communication Ability: Effective Log Turner Required: No Beliefs That Will Affect Care: None marital status: / Current Living Situation: Other Current Living Situation Comment: Lives with friends - emergency contact current occupation: NOT WORKING How many Children do You have: 0 Other Information That Helps Us Care for You: No Feels Safe at Home: Yes Safety Concerns: Feels Safe At This Time Assistive Devices: Denture - Upper and Denture - Lower Review of Systems Review of Systems: Neuro: (-) Falls, trauma, slurred speech. HEENT: (-) CAMILO, dizziness, dysphagia, visual or auditory changes CV: (-) CP, palpitations, swelling Resp: (-) SOB GI: (-) appetite changes, N/V/D, bowel changes : (-) urinary changes Skin: (-) rashes Psych: (-) anxiety, depression Physical Exam Physical Exam: Neuro: AAOx4, PERRLA, no aphagia, memory changes, CNII-XII grossly intact. NIH 1 HEENT: head normocephalic, moist mucus membranes CV: S1/S2, (-) M/G/R, (-) edema, cap refill < 3 seconds Resp: Lungs CTA in all robert. On RA GI: Abdomen S/NT/ND, Ax4 bowel sounds, (-) CVA tenderness Musculoskeletal: 5/5 B/L UE strength, 5/5 B/L LE strength. No gait disturbance Skin: (-) rashes , (-) erythema. Psych: euthymic mood Results & Data Results & Data Vital Signs (Past 12 Hours) Vital Signs Temp Pulse Pulse Resp BP BP Pulse Ox 05/08/24 12:00 70 12 139/88 98 05/08/24 11:55 64 96 05/08/24 11:53 62 22 170/102 H 98 05/08/24 11:44 60 05/08/24 11:27 36.4 C L 64 18 165/117 H 96 O2 Del Method 05/08/24 12:00 Room Air 05/08/24 11:55 Room Air 05/08/24 11:53 Room Air 05/08/24 11:44 05/08/24 11:27 Room Air Laboratory Results Short CBC 05/08/24 Range/Units 11:47 WBC 6.69 (4.8-10.8) K/ul Hgb 11.1 L (14.0-18.0) g/dl Hct 31.8 L (42.0-52.0) % Plt Count 100 L (130-400) K/uL BMP 05/08/24 11:47 Sodium 140 Potassium 4.5 Chloride 107 Carbon Dioxide 25 BUN 25 H Creatinine 1.45 H Glucose 144 H Calcium 9.0 Liver Function 05/08/24 Range/Units 11:47 Total Bilirubin 0.6 (0.2-1.0) mg/dl AST 24 (13-39) U/L ALT 20 (7-52) U/L Alkaline Phosphatase 67 (34-104) U/L Albumin 4.0 (3.4-5.0) gm/dl Diagnostic Findings Head CT 05/08/24 11:34 CT SCAN OF THE BRAIN WITHOUT IV CONTRAST CLINICAL HISTORY: Left-sided neurological deficits. Left-sided facial droop. COMPARISON STUDY: Prior CT scans of the brain, most recently dated 05/07/2024. TECHNIQUE: Unenhanced axial CT scan of the brain is performed from the vertex to the skull base. A dose lowering technique was utilized adhering to the principles of ALARA. FINDINGS: Brain parenchyma: Foci of right frontal, right temporal, and bilateral parietal encephalomalacia are unchanged and consistent with remote insults. There is age- related involutional change noting mild subcortical and periventricular microangiopathic disease. There is no hemorrhage, mass effect, or evidence of acute territorial ischemia by CT criteria. Hatfield-white matter differentiation is preserved. No extra-axial fluid collection is seen. Ventricles, sulci, cisterns: Prominent secondary to involutional change. Intracranial vasculature: There is atherosclerotic calcification of the cavernous carotid and vertebral arteries. Calvarium: Unremarkable. Sinuses and mastoids: The visualized paranasal sinuses are clear. There are bilateral mastoid effusions. Orbits: The bony orbits are grossly intact. IMPRESSION: Chronic changes as above with no hemorrhage, mass effect, or evidence of acute territorial ischemia by CT criteria. No appreciable change from yesterday. ACT 112: Negative or not required by law. Electronically signed by: Rick Stone M.D. 05/08/2024 11:45 AM Code Status & VTE Plan Code Status Full Code in the event of cardiac or respiratory arrest VTE Prophylaxis Plan VTE Prophylaxis will be ordered: Yes Supervising Physician Co-Signing Physician Notes Patient is a 73-year-old male with history of PE, TIAs, CVA, diabetes mellitus, DVT, hyperlipidemia, BPH, migraine and other medical problems presents with history of left sided facial droop associated with frontal headache, bilateral blurry vision and expressive aphasia. Symptoms improved during my encounter in ED. He was evaluated in ED yesterday for similar symptoms and had CT head, CTA head and neck which showed no acute process but noted to have high-grade stenosis involving the distal left posterior cerebral artery. CT head today showed no acute process as well. Blood work suggestive of normocytic anemia, thrombocytopenia, CKD with creatinine 1.4, glucose 144 but otherwise within normal limits. Lyme screen, MRI brain currently pending. EKG showed normal sinus rhythm, low voltage QRS, QTc 413. Given onset of symptoms, not a candidate for TNK. Physical Exam: Vitals signs as noted above General Appearance:Obese, no apparent distress Head: normocephalic, Atraumatic Eyes: normal inspection, EOMI,+ blurry vision Neck: supple, Trachea midline Respiratory/Chest: Normal breath sounds, CTA, No accessory muscle use Cardiovascular: S1, S2, No murmur Abdomen/GI:Soft, Non tender, Bowel sounds present Extremities/Musculoskeletal:normal inspection, no edema Neurologic/Psych:AAOX3, mild expressive aphasia, otherwise grossly no focal neurological deficits, no facial droop during my encounter Skin: normal color, warm Strokelike symptoms--rule out acute CVA Chronic anemia Thrombocytopenia 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 Patient's care is coordinated with Lexy AGUILAR. I have reviewed the advanced practitioner's documentation, and I agree with plan of care. Please refer to the documentation above for details of patient's presentation and for discussion of other issues. I spent a total of 34minutes coordinating, documenting, and providing care for this patient excluding time spent in the performance of separately billed services.
[2024-05-08 12:22] LABS: Troponin I High Sensitivity 6.4 pg/ml (0-20)
[2024-05-08 12:28] LABS: INR 1.1 (0.9-1.1); Partial Thromboplastin Ratio 1.2; Partial Thromboplastin Time 31 Seconds (21-31); Prothrombin Time 11.4 Seconds (9.0-12.0)
[2024-05-08] MEDS: CLOPIDOGREL BISULFATE 75 MG TAB PO ONE (13:59)
--- NOTE | 2024-05-08 14:19 | Electrocardiogram Report ---
Test Reason : Blood Pressure : */* mmHG Vent. Rate : 66 BPM Atrial Rate : 66 BPM P-R Int : 156 ms QRS Dur : 78 ms QT Int : 394 ms P-R-T Axes : 68 -1 42 degrees QTcB Int : 413 ms Normal sinus rhythm Low voltage QRS Borderline ECG When compared with ECG of 07-May-2024 12:58, Premature ventricular complexes are no longer Present Criteria for Anterior infarct are no longer Present QT has shortened Confirmed by Aidan Powell ([id number]) on 05/08/2024 2:19:13 PM Referred By: REFERRED SELF Confirmed By: Aidan Powell
[2024-05-08] MEDS ORDERED: DEXTROSE 50% 50 ML SYRINGE IV PRN (16:50)
[2024-05-08] MEDS ORDERED: GLUCOSE 10 TAB/TUBE PO PRN (16:50)
[2024-05-08] MEDS ORDERED: ALUMINUM/MAGNESIUM SUSP 30 ML UDC PO PRN (16:50)
[2024-05-08] MEDS ORDERED: ONDANSETRON INJ 2 MG/ML 2 ML VIAL IV PRN (16:50)
[2024-05-08] MEDS ORDERED: PHARMACY GLYCEMIC MGMT CONSULT PRN (16:50)
[2024-05-08] MEDS ORDERED: GLUCOSE 40% GEL 15 GM TUBE PO PRN (16:50)
[2024-05-08] MEDS ORDERED: MAGNESIUM HYDROXIDE SUSP 30 ML UDC PO PRN (16:50)
[2024-05-08] MEDS ORDERED: POLYETHYLENE (MIRALAX) 17 GM PACK PO PRN (16:50)
[2024-05-08] MEDS ORDERED: CARBOHYDRATES FOR HYPOGLYCEMIA PO PRN (16:50)
[2024-05-08] MEDS ORDERED: GLUCAGON FOR INJ 1 MG VIAL SQ PRN (16:50)
[2024-05-08] MEDS: INSULIN ASPART PER UNIT CHARGE SC SCH (17:31)
[2024-05-08] MEDS: GADOBUTROL 65ML VIAL IV ONE (18:28)
--- NOTE | 2024-05-08 19:55 | Magnetic Resonance Report ---
Exam(s): MRI HEAD W/WO Contrast IV Amt: 9.5mL Gadavist given existing IV EXAM: MR Head Without and With Intravenous Contrast CLINICAL HISTORY: Reason for exam: stroke like symptoms. TECHNIQUE: Magnetic resonance images of the head/brain without and with intravenous contrast in multiple planes. CONTRAST: Patient received 9.5mL Gadavist given existing IV of IV contrast COMPARISON: 05/08/24 FINDINGS: Brain: Linear region of diffusion restriction at the right frontoparietal junction consistent with acute/subacute right MCA territory cortical infarct. No other foci of diffusion restriction. No acute intracranial hemorrhage. No mass-effect or midline shift. Multifocal encephalomalacia involving the right frontal lobe and bilateral frontal lobes consistent with a chronic cortical infarcts. Generalized parenchymal volume loss. Chronic small vessel ischemic changes in the periventricular and deep cerebral white matter. No intracranial mass or abnormal enhancement. Ventricles: Unremarkable. No hydrocephalus. Bones/joints: Unremarkable. No acute fracture. Sinuses: Trace mucosal thickening in the paranasal sinuses. Mastoid air cells: Mastoid effusions. Orbits: Unremarkable as visualized. IMPRESSION: Linear region of diffusion restriction at the right frontoparietal junction consistent with acute/subacute right MCA territory cortical infarct. Communications: Call Doctor Stroke Electronically signed by: Robin Ferguson M.D. 05/08/24 19:54 PM
[2024-05-08] MEDS: GABAPENTIN 300 MG CAP PO SCH (20:50)
[2024-05-08] MEDS: APIXABAN 5 MG TABLET PO SCH (20:50)
[2024-05-08] MEDS: PROPRANOLOL HCL 10 MG TAB PO SCH (20:50)
[2024-05-08] MEDS: LANTUS PER UNIT CHARGE SQ ONE (21:41)
[2024-05-09] MEDS: INSULIN ASPART PER UNIT CHARGE SC SCH (04:00)
[2024-05-09 07:21] LABS: Hematocrit (blood only) 30.4 % (42.0-52.0); Hemoglobin 10.4 g/dl (14.0-18.0); Mean Corpuscular Hemoglobin 30.3 pg (25.0-34.0); Mean Corpuscular Hgb Conc 34.2 g/dL (32.0-36.0); Mean Corpuscular Volume 88.6 fL (80.0-100.0); Mean Platelet Volume 10.5 fL (9.4-12.4); Platelet Count 96 K/uL (130-400); RDW Coefficient of Variation 14.8 % (11.5-14.5); RDW Standard Deviation 47.8 fL (36.4-46.3); Red Blood Count 3.43 M/uL (4.70-6.10); White Blood Count 6.56 K/ul (4.8-10.8)
[2024-05-09 07:23] LABS: BUN Creatinine Ratio 20.9 (10-20); Calcium 8.6 mg/dl (8.6-10.3); Chol HDL Ratio 3.3 (0-5); Creatinine Clr Calc Pharmacy 47.3 ml/min; Magnesium 1.7 mg/dl (1.7-2.4); Phosphorus 4.8 mg/dl (2.5-4.9); Potassium 4.5 mmol/L (3.5-5.1)
[2024-05-09 07:35] LABS: Estimated Average Glucose 157 mg/dl; Hemoglobin A1C 7.1 % (4.5-5.6)
[2024-05-09] MEDS: TAMSULOSIN HCL 0.4 MG CAP PO SCH (08:40)
[2024-05-09] MEDS: FINASTERIDE 5 MG TAB PO SCH (08:41)
[2024-05-09] MEDS: ATORVASTATIN 40 MG TAB PO SCH (08:41)
[2024-05-09] MEDS: CLOPIDOGREL BISULFATE 75 MG TAB PO SCH (08:50)
--- NOTE | 2024-05-09 10:07 | Ultrasound Report ---
RENAL ULTRASOUND HISTORY: Acute kidney injury elevated cr, assess MAGY v ckd COMPARISON: CT 08/03/2022. FINDINGS: Right kidney: 9.9 cm. No hydronephrosis. Probable nonobstructing calculi measure up to approximately 1 cm. There is diffuse cortical thinning with increased parenchymal echogenicity. No solid mass lesio ns identified. Left kidney: 10.6 cm. No hydronephrosis. There is diffuse cortical thinning with increased parenchyma l echogenicity. No solid mass lesions identified. Bladder: Mild wall thickening and trabeculation suggestive of chronic outlet obstruction. The bilater al ureteral jets were identified. Prostatomegaly. IMPRESSION: 1. Evidence of chronic medical renal disease. 2. Probable right nephrolithiasis without hydronephrosis. 3. Prostatomegaly. ACT 112: Negative or not required by law. Electronically signed by: Horacio Ramirez M.D. 05/09/2024 10:06 AM
[2024-05-09] MEDS: ACETAMINOPHEN 325 MG TAB PO PRN (11:18)
--- OUTSIDE RECORDS SUMMARY | 2024-05-09 11:19 | External Medical Summary | Summary of Care ---
Author Name Unknown Organization [facility] Address [address] [place] [address] Phone [phone] Care Team Providers Care Potato Chip Sorter Name Role Phone Keo Patrick DO Primary Care Provider [phone] Reason for Visit * Reason Onset Date Comments Emergency Department Follow-Up 05/08/2024 Advice 05/08/2024 Encounter Details Date Type Department Care Team (Late st Contact Info) Description 05/08/2024 Telephone Family Practice [facility] [address] [place] [address] Keo Patrick DO [address] [place] [address] Emergency Department Follow-Up; Advice Allergies No known active allergiesdocumented as of this encounter (statuses as of 05/08/2024) Medications Medication Sig Dispensed Refills Start Date End Date Status Aspirin 81 MG Oral CapsuleIndications:[facility] Take 81 mg by mouth in the morning. Active Acetaminophen 500 MG Oral Tablet Take 2 Tablets by mouth every 6 hours as needed. Active Sennosides-Docusate Sodium 8.6-50 MG Oral Tablet Take 1 Tablet by mouth every evening. As needed Active Tamsulosin HCl 0.4 MG Oral Capsule (Flomax)Indications: BPH with obstruction/lower urinary tract symptoms Take 1 Capsule by mouth in the morning. 100 Capsule 3 08/16/2023 Active Propranolol HCl 10 MG Oral Tablet (Inderal)Indications :Other headache syndrome Take 1 Tablet by mouth in the morning and 1 Tablet before bedtime. 200 Tablet 08/16/2023 Active metFORMIN HCl 1000 MG Oral Tablet (Glucophage)Indicati ons:Type 2 diabetes mellitus with hemoglobin A1c goal of less than 7.0% (HCC),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 (HCC) TAKE 1 TABLET BY MOUTH TWICE DAILY WITH MORNING MEAL AND WITH EVENING MEAL 200 Tablet 08/16/2023 Active Gabapentin 300 MG Oral Capsule (Neurontin)Indicatio ns:Acute left-sided low back pain with left-sided sciatica Take 2 Capsules by mouth in the morning and 2 Capsules before bedtime. 400 Capsule 08/16/2023 Active Finasteride 5 MG Oral Tablet (Proscar)Indications :BPH with obstruction/lower urinary tract symptoms Take 1 Tablet by mouth in the morning. 100 Tablet 08/16/2023 Active Atorvastatin Calcium 40 MG Oral Tablet (Lipitor)Indications :Dyslipidemia, goal LDL below 100 Take 1 Tablet by mouth in the morning. 100 Tablet 08/16/2023 Active Apixaban 5 MG Oral Tablet (Eliquis)Indications :Recurrent deep vein thrombosis (DVT) (HCC) Take 1 Tablet by mouth in the morning and 1 Tablet before bedtime. 200 Tablet 08/16/2023 Active documented as of this encounter (statuses as of 05/08/2024) Active Problems Problem Noted Date Diagnosed Date Chronic kidney disease, stage 3a 11/05/2023 Overview: Per CKD protocol Type 2 diabetes mellitus wit h stage 3a chronic kidney disease and hypertension 07/09/2023 Overview: Per CKD protocol Odontogenic infection of jaw 06/29/2023 Current mild episode of maria alejandra r depressive disorder without prior episode 02/01/2023 Other abnormalities of gait and mobility 022 Hemiplegia and hemiparesis f ollowing cerebral infarction affecting left non-dominant side 01/12/2022 Last Assessment & Plan: At baseline -continue aspirin, statin, Eliquis, ACP (advance care planning) 09/12/2021 History of CVA (cerebrovascular accident) 2020 Aphasia, post-stroke 07/01/2021 Last Assessment & Plan: At baseline. -continue aspirin, Eliquis, atorvastatin, propranolol Kidney stone on left side 05/12/2021 HTN, goal below 140/90 02/18/2021 Last Assessment & Plan: BP slightly elevated, but stable. -continue propranolol 10 mg twice daily Recurrent deep vein thrombosis (DVT) 02/18/2021 Last Assessment & Plan: Stable -continue Eliquis Lumbar degenerative disc disease 07/12/2016 BPH with obstruction/lower urinary tract symptom s 03/31/2014 History of elevated PSA 03/31/2014 Last Assessment & Plan: Last PSA acceptable. Following closely with Urology. -continue finasteride and tamsulosin. Dyslipidemia, goal LDL below 100 06/23/2009 Type 2 diabetes mellitus wit h hemoglobin A1c goal of less than 8.0% 05/13/2009 Overview: Modified per Diabetes protocol #14. ICD-10 update of inactive term long term acute care registered nurse current use of anticoagulant therapy 0 08/05/2003 Overview: ICD-10 update of inactive term Varicose vein of leg documented as of this encounter (statuses as of 05/08/2024) Resolved Problems Problem Noted Date Diagnosed Date Resolved Date Facial cellulitis 06/28/2023 07/13/2023 On mechanically assisted ventilation 06/28/2023 06/29/2023 Acute respiratory failure with hypoxia 06/27/2023 06/29/2023 Epiglottitis 06/27/2023 06/29/2023 Eric's angina 06/26/2023 06/29/2023 Fever 10/13/2022 10/23/2022 Overview: Unsettling given the recent right knee infection -hold Tylenol tonight and monitor temperature -CBC, BMP, urinalysis -re-evaluation tomorrow Type 2 DM with CKD stage 3 and hypertension 10/02/2022 07/12/2023 Overview: Per CKD protocol Last Assessment & Plan: Current Status: "Stable" for patient / At or near baseline Degree of Condition Awareness: Demonstrates very good awareness of condition, disease course, and prognosis "RED FLAG" Diabetic symptoms: o none Goal HgbA1c o <7 Diabetic Complications o Vascular (examples: PVD, PAD, CAD, CVA) Medication Regimen o Metformin DM Secondary Prevention o Moderate-High Intensity Statin o Aspirin Hemoglobin A1c 6.0. Dizziness 05/31/2022 10/02/2022 Ischemic cerebrovascular acc ident (CVA) of frontal lobe 02/04/2021 08/03/2022 DM type 2, not at goal 04/24/200705/13 Overview: Modified per Diabetes protocol #14. ADVANCE DIRECTIVE INFORMATION 09/01/2005 01/17/2017 Overview: No, Advance Directive brochure given to patient. Disorder of prostate 03/25/2003 018 Anticoagulation management encounter 01/24/2002 02/04/2021 VENOUS THROMBOSIS Recurrent 1983 and 1994 01/23/2020 Malaise and fatigue 11/20/19 12 PERFORAT TYMPAN MEMB NOS documented as of this encounter (statuses as of 05/08/2024) Immunizations Name Administration Dates Next Due H1N1 2009 Influenza, IM 09/24/2009 Pneumococcal Conjugate Vacc, 13 Valent (Prevnar) 04/20/2015 Pneumococcal Polysaccharide PPV23 (Pneumovax) 03/04/2014,09/21/2008 Seasonal Influenza Vac., MDV , IM, 0.5 mL (Fluzone) 04/20/2015,06/09/2014,07/21/2013,07/11,04/24/2011,04/14/2010,06/23/2009 ,07/20/2008 Seasonal Influenza, Quadriva lent Hd (Fluzone Hd) 06/29/2023(Deferred: Patient Refused),06/27/2021 Seasonal Influenza, Quadriva lent, No Preserve, IM 05/12/2016 TD - Tetanus/Diptheria (ADULT) 05/03/2006 TDAP (age 10 and older)(Boostrix) 08/13/2015 Varicella Zoster Vaccine (Adult) 11/20/2011 Zoster Vaccine Recombinant (Shingrix) 05/12/2020 ,10/15/2019 documented as of this encounter Social History Tobacco Use Types Packs/Day Years Used Date Smoking Tobacco: Former Passive Smoke Exposure: Past Smokeless Tobacco: Former Snuff, Chew Alcohol Use Standard Drinks/Week Comments No 0 (1 standard drink = 0.6 oz pur e alcohol) PHQ-2 Answer Date Recorded PHQ Adult Total Score 0 08/16/2023 Hunger Vital Sign Answer Date Recorded Within the past 12 months, y ou worried that your food would run out before you got the money to buy more. Never true 08/16/19 24 Within the past 12 months, t he food you bought just didn't last and you didn't have money to get more. Never true 08/16/2023 Childcare Answer Date Recorded Do you feel overwhelmed with taking care of a child, family member or friend? No 08/16/2023 Does your family need help f inding childcare? (Household - for ages 0-17 years) Not on file 08/16/2023 Clothing Answer Date Recorded Have you been unable to get clothing when it was really needed? No 08/16/2023 Is your family able to get c lothes or diapers when needed? (Household - for ages 0-17 years) Not on file 08/16/2023 Personal Safety Answer Date Recorded Do you feel unsafe or have concerns for your saf ety? No 08/16/2023 Do you have concerns for you r family's safety? (Household - for ages 0-17 years) Not on file 08/16/2023 Utilities Answer Date Recorded Do you have trouble paying y our heating, water, or electric bill? No 08/16/2023 Is your family able to pay t he heat, water, or electric bill? (Household - for ages 0-17 years) Not on file 08/16/2023 Does your family have access to good internet? (Household - for ages 0-17 years) Not on file 08/16/2023 Employment Status Answer Date Recorded Are you unemployed or without regular income? No 08/16/2023 Does the household have a re gular source of income? (Household - for ages 0-17 years) Not on file 08/16/2023 Social Connections Answer Date Recorded How often do you feel lonely or isolated from th ose around you? Never 08/16/2023 Financial Resource Strain Answer Date R ecorded Do you have any trouble payi ng for your medications, or do you think you might in the future? No 08/16/2023 Does your family have troubl e paying for medicine? (Household - for ages 0-17 years) Not on file 08/16/2023 Transportation Needs Answer Date Record ed READ ONLY Do you have troubl e getting a ride to medical visits or work? Never True 08/16/2023 Does your family have a hard time getting a ride to doctors visits? (Household - for ages 0-17 years) Not on file 08/16/2023 Has lack of transportation k ept you from medical appointments, meetings, work, or from getting things needed for daily living? Check all that apply. (Adult - for ages 18 years and over) Not on file 08/16/2023 Do you (or your family) have trouble finding or paying for a ride (transportation)? (Household - for ages 0-17 years) Not on file 08/16/2023 Housing Stability Answer Date Recorded Do you currently live in a s helter or have no steady place to sleep at night? No 08/16/2023 READ ONLY Do you think you a re at risk of becoming homeless? No 08/16/2023 Does your family worry about paying for your home or becoming homeless? (Household - for ages 0-17 years) Not on file 0 08/16/2023 Are you homeless or worried that you might be in the future? (Adult - for ages 18 years and over) Not on file Are you (or your family) dajuan eless or worried that you might be in the future? (Household - for ages 0-17 years) Not on file Food Insecurity Answer Date Recorded Do you need food for this week? No 08/16/2023 Are you able to get enough f ood for your family? (Household - for ages 0-17 years) Not on file 08/16/2023 Does your family need food t his week? (Household - for ages 0-17 years) Not on file 08/16/2023 Do you always have enough fo od for your family? (Household - for ages 0-17 years) Not on file 08/16/2023 Sex and Gender Information Value Date Recorded Sex Assigned at Male 01/22/2019 7:34 AM EDT Gender Identity Male 01/22/2019 7:34 AM EDT Sexual Orientation Straight 01/22/2019 7: 34 AM EDT Job Start Date Occupation Industry Not on file Not on file Not on file documented as of this encounter Miscellaneous Notes * Telephone Encounter - Krystal Woo RN - 05/08/2024 11:05 AM EDT Upon talking with Dr Patrick he recommends pt returning to ER Called and spoke with care given Montse-they were on their way to the dentist- told not to go to dentist and to go to the ER. Verbalized understanding. * Telephone Encounter - Keo Patrick DO - 05/08/2024 10:41 AM EDT He should not go to the Dentist today. See if MRI of the brain can be done today. * Telephone Encounter - Krystal Woo RN - 05/08/2024 10:15 AM EDT Emergency Department Follow Up: When was patient seen: 05/07/2024 Which ED: [facility] What were they seen for: stroke like symptoms What testing did they have done: lab work and ct scan What did ED think was wrong (dx): Brain TIA Any new medications prescribed: none How is patient feeling today: furnace caretaker calling-pt seen in ER yesterday for stroke like symptoms-slurred speech, mumbling, left sided facial drooping. Symptoms improved by time EMS got there. ER didCT and lab work-felt it was a TIA -spoke with neurology and no further treatment needed-he already is on eliquis, atorvastatin and ASA. Today he woke up with a headache-frontal/forehead and blurred vision. Only a slight drooping noted left side of face and maybe a slight swelling. He is walking andmoving all extremities OK, talking is normal. His magnesium was low and was given IV magnesium in ER. His potassium was elevated at 5.2. He was to go to the dentis this morning-unsure if should go and see if he should return to ER or be seen by Dr Patrick Told would check with Dr Patrick and would let them know-to continue to monitor closely and call with any further or worsening symptoms Patient concerns today: documented in this encounter Plan of Treatment Upcoming Encounters Date Type Department Care Team (Late st Contact Info) Description 06/25/2024 11:45 AM EST Office Visit Urology, [facility] [address] [facility] [place] [address] Alfredo Maguire MD [address] [place] [id number] 07/10/2024 10:20 AM EST Office Visit Family Practice [facility] [address] [place] [address] Keo Patrick, [address] [place] [address] Scheduled Procedures Name Priority Associated Diagnoses Date/Ti me COLONOSCOPY FLEXIBLE PROXIMAL DIAGNOSTIC Recall History of colon polyps Health Maintenance Due Date Last Done Comments Adult Wellness Visit 11/08/2017 11/08/2016 Influenza Vaccine (FLU shot) (#1) 2024 06/27/2021, 05/12/2016, 04/20/2015, Additional history exists GFR 05/08/2024 11/07/2023, 04/0 10/2023, 07/10/2023, Additional history exists Albumin/Creatinine Ratio 06/15/2024 023, 08/03/2022, 09/13/2021, Additional history exists CKD PHOS USE SMARTSET 32841 06/29/2024 12/0 07/2022, 06/28/2023, 06/27/2023, Additional history exists Diabetic Eye Exam 08/15/2024 08/15/2023, , 06/05/2022, Additional history exists Depression Monitoring 08/16/2024 08/16/2023 HbA1c 09/06/2024 03/06/2024, 04/0 10/2023, 06/14/2023, Additional history exists CKD HGB USE SMARTSET 32286 10/31/202410/31, 11/01/2023, 07/10/2023, Additional history exists Diabetic Foot Exam 10/31/2024 11/01/2023, 0 11/01/2023, 10/23/2022, Additional history exists Colonoscopy 01/25/2025 01/25/2022, 12/29, 07/18/2018, Additional history exists B-12 03/06/2025 03/06/2024, 07/0 12/2022, 01/12/2022, Additional history exists DTap/Tdap Vaccines (2 - Td or Tdap) 08/13/2025 08/13/2015, 05/03/2006, 11/12/2000 Pneumococcal Vaccine: 65+ Years Completed 04/20/2015, 03/04/2014, 09/21/2008 Zoster Vaccines Completed 05/12/2020, 09/27, 11/20/2011 COVID-19 Vaccine Discontinued HPV (Gardasil) Vaccine Aged Out No lo nger eligible based on patient's age to complete this topic Hepatitis B Vaccine Aged Out No longe r eligible based on patient's age to complete this topic MENINGOCOCCAL (MENACTRA/MENVEO) Aged Out No longer eligible based on patient's age to complete this topic documented as of this encounter Medical Devices Not on filedocumented as of this encounter Advance Directives Documents on File Type Date Recorded Patient Technical Applications Scientist Expl anation Advance Directives and Living Will 05/13/2022 ADVANCE DIRECTIVE / LIVING WILL Power of Boxer Operator 05/13/2022 POWER OF A TTORNEY * Full Code (Latest Code Status on File) Date Activated Date Inactivated Comments 06/26/2023 10:04 PM 06/29/2023 7:56 PM This order reflects the patients wishes and were consensually agreed upon. Question Answer Comments Discussion of Advance Direct vivien occurred with: Not Discussed due to patient's condition Healthcare Agents on File Name Relationship Healthcare Agent Relationship Communication Montse Mendes Other - (no specific identity) Health Care Agent (per Health Care Power of Boxer Operator document) Care Teams Potato Chip Sorter Relationship Specialty Start Date End Date Keo Patrick DO [address] [place] [address] PCP - General Internal Medicine 03/04/24 documented as of this encounter
[2024-05-09 11:23] LABS: Appearance Urine Clear (Clear); Bilirubin Urine Negative (Negative); Blood Urine Negative (Negative); Color Urine Yellow; Glucose Urine UA Negative (Negative); Ketones Urine Trace (Negative); Leukocyte Esterase Urine Negative (Negative); Nitrite Urine Negative (Negative); Protein Urine Negative (Negative); Specific Gravity Urine 1.018 (1.000-1.030); Urobilinogen Urine Negative (Negative); pH Urine 5.5 (4.5-7.5)
[2024-05-09] MEDS: ACETAMINOPHEN 500 MG TAB PO ONE (11:23)
[2024-05-09 11:38] LABS: Total Protein Urine Random 9.9 mg/dl (0-11.9); Urine Potassium 44.3 mmol/L
[2024-05-09 11:44] LABS: Creatinine Urine Random 76.5 mg/dl; Protein Creatinine Ratio Urine 0.1 (0-0.2)
[2024-05-09] MEDS: ACETAMINOPHEN 500 MG TAB ONE (13:41)
--- NOTE | 2024-05-09 14:11 | Pharmacy Report ---
Pharmacy Glycemic Short Note 2 - Date of Service May 09, 2024 - Glycemic Short BSG Results (Last 24 hours): 05/08/24 05/08/24 05/09/24 17:04 21:03 03:53 Glucose POC Glucose 109 H 129 H 135 H 05/09/24 05/09/24 05/09/24 06:17 07:13 11:36 Glucose 118 H POC Glucose 128 H 123 H OUTPATIENT ANTIDIABETIC REGIMEN: * Metformin 1000 mg PO BID * A1C 05/09/24 is 7.1% ASSESSMENT: 05/09 * 73 year old male admitted for stroke-like symptoms. Type 2 diabetic managed on metformin 1000mg BID outpatient. * Pharmacy consulted for glycemic management. Provider ordered scaled lantus last night; pt did not receive any since BSGs <140. Pt also did not receive any aspart last night since BSGs in range. Insulin requirements still minimal today. * Current plan is to hold glargine and loosen up correction factor and insulin:carb ratio since pt has minimal insulin requirements. PLAN FOR INPATIENT GLYCEMIC CONTROL: * Hold outpatient oral diabetes medications * Basal insulin * Hold * Bolus insulin * NovoLog per scale ACHS or Q6hrs while NPO * Goal Range: Low 110 mg/dL - High 140 mg/dL * Correction Factor: 30 mg/dL/unit * Nutritional / Prandial insulin per carb ratio of 1 unit per 10 grams CHO consumed
--- NOTE | 2024-05-09 14:36 | Hospitalist Progress Note ---
Date of Service May 09, 2024 Assessment & Plan Admission and Anticipated Discharge Date Admission Date: May 08, 2024 Results & Data Results & Data Vital Signs (Past 12 Hours) Vital Signs Temp Pulse Pulse Resp BP Pulse Ox O2 Del Method 05/09/24 13:56 60 05/09/24 11:42 36.8 C 62 15 111/75 92 Room Air 05/09/24 07:15 36.9 C 85 20 149/64 H 95 Room Air 05/09/24 02:43 36.8 C 68 17 173/101 H 96 Room Air
--- NOTE | 2024-05-09 14:50 | Neurology Consultation ---
Date of Consultation May 09, 2024 Assessment & Plan (1) Stroke-like symptoms: Likely new R MCA stroke adjacent to previous stroke territory suggests either extension or persistent restricted diffusion. As discussed during his prior ED visit, these tests do not bladder changer as he is appropriately on maximal medical therapy already. For the headache he does not meet criteria for a daily med though he is already on propranolol and gabapentin which could be adjusted if needed. For abortive therapy there are few options given his risk factors and anticoagulation/thrombocytopenia. I agree with avoiding NSAIDS in this case even if sporadically used. -- For stroke - continue home meds, eliquis and aspirin -- For Migraine - would try compazine/benadryl, tylenol and magnesium -- Could consider increasing gabapentin to 600/300/600. -- Okay for discharge from our perspective, can follow-up with neuro in 4-6 weeks Telehealth Consultation Telehealth Information Telehealth Information: I performed this visit using a real-time telehealth connection between my location and the patients location ([facility]). After connecting through interactive tele-video, patient was identified by name and date of and/or wristband check.Patient (or authorized healthcare health and safety representative) was informed that this was a telemedicine visit and it was being conducted confidentially over secure lines. My office door was closed and no one else was present in the room with me.Patient (or authorized healthcare health and safety representative) provided consent to proceed with the visit, expressed an unders tanding of privacy and security of the telemedicine visit, and gave permission to have a hospital health and safety representative in the room in order to assist with the visit and to conduct portions of the visit, as needed. I informed the patient (or authorized healthcare health and safety representative) that I reviewed their record and presented the opportunity for them to ask any questions regarding the visit today. The patient agreed to participate. History of Present Illness Reason for Consultation: L sided weakness Requesting Physician: Dr. Hernandez Attending Physician: Colleen Hernandez PA-C History of Present Illness Neo oSlis is a 73 yo M with a history of a R MCA stroke on eliquis aspirin presenting with a L facial droop, headache and blurry vision. After his last stroke he was able to live independently at home and ambulates without assistance. He discussed his symptoms with his PCP who sent him to the ED where he had a CT/CTA which were unremarkable and he was discharged as his stroke risk factor management was appropriate. He present again as recommended by his PCP and was admitted. He reports symptoms have been stable with his facial droop but no new significant weakness of the arms or legs. He is able to ambulate without difficulty. No trouble speaking or swallowing. He reports good compliance with his eliquis. He continues to complain of a mild headache despite tylenol but reports that overall his headaches at home are less than 1 a month and not disabling. This headache in particular has been more severe and began 2 days ago. Allergies Allergy/AdvReac Type Severity Reaction Status Date / Time No Known Allergies Allergy Verified 08/23/22 12:42 Home Medications Medication Instructions Recorded Confirmed Type apixaban 5 mg tablet (Eliquis) 5 mg PO BID 30 days #60 tabs 02/02/21 05/08/24 Rx metformin 1,000 mg tablet 1,000 mg PO BIDM 02/12/21 05/08/24 History aspirin 81 mg tablet,delayed 81 mg PO QAM 03/29/21 05/08/24 History release (Bong Low Dose Aspirin) atorvastatin 40 mg tablet (Lipitor) 40 mg PO QAM 03/29/21 05/08/24 History gabapentin 300 mg capsule 600 mg PO BID 03/29/21 05/08/24 History (Neurontin) propranolol 10 mg tablet 10 mg PO BID 07/28/22 05/08/24 History tamsulosin 0.4 mg capsule 0.4 mg PO QAM 08/23/22 05/08/24 History Stool Softener 1 tab PO .EVERY OTHER DAY 05/08/24 05/08/24 History finasteride 5 mg tablet 5 mg PO QAM 05/08/24 05/08/24 History Patient History Medical History Knee pain, right MAGY (acute kidney injury) Weakness MAGY (acute kidney injury) Elevated troponin Anemia Kidney stones Stroke 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 ischemic stroke, residual mild weakness and short- term memory impairment Pulmonary embolism 1993- Eliquis Hydronephrosis with urinary obstruction due to ureteral calculus Hypertension Surgical History History of back surgery No hardware History of cystoscopy Cystoscopy, left retropyelogram, Left ureteral stent placement (03/30/21): LMA#4 at [facility] H/O colonoscopy History of tympanoplasty of right ear Status post appendectomy Family History Uncle Family history of diabetes mellitus Other Heart disease Social History Smoking Status: Former smoker Tobacco Type: Cigarettes Second Hand Exposure: No; Do You Dip or Chew Tobacco: No; Tobacco Cessation Education Requested by Patient: No Hx Alcohol Use: No Hx Substance Use: No Preferred Language: Setswana Communication Ability: Effective Bioinformatics Research Technician Required: No Beliefs That Will Affect Care: None marital status: / Current Living Situation: Other Current Living Situation Comment: Lives with friends - emergency contact current occupation: NOT WORKING How many Children do You have: 0 Other Information That Helps Us Care for You: No Feels Safe at Home: Yes Safety Concerns: Feels Safe At This Time Assistive Devices: Denture - Upper and Denture - Lower Review of Systems +L facial droop Physical Exam Neurological Examination: Mental Status: Awake and alert. Oriented to person, place, and time. Fluent. Comprehension intact. Affect appropriate. Cranial Nerves: II: Reads NIHSS cards, pupils 3/3 to 2/2, robert grossly intact. III/IV/: Versions intact without nystagmus, no gaze preference. V: Facial sensation symmetric to light touch VII: Facial expression reduced on the L VIII: Hearing intact to voice IX/X: Palate elevates symmetrically XI: Shoulder shrug symmetric XII: Tongue midline Motor: Strength was symmetric and antigravity throughout. Pronator drift was absent. There were no abnormal movements. Sensory: Sensation to light touch was intact. Coordination: Finger to nose and heel to summers were intact. Reflexes: Unable to assess over telemedicine Results & Data Vital Signs (Past 12 Hours) Vital Signs Temp Pulse Pulse Resp BP Pulse Ox O2 Del Method 05/09/24 13:56 60 05/09/24 11:42 36.8 C 62 15 111/75 92 Room Air 05/09/24 07:15 36.9 C 85 20 149/64 H 95 Room Air Laboratory Results Abnormal lab results 05/08/24 05/08/24 05/09/24 Range/Units 17:04 21:03 03:53 RBC (4.70-6.10) M/uL Hgb (14.0-18.0) g/dl Hct (42.0-52.0) % RDW Std Deviation (36.4-46.3) fL RDW Coeff of Aranza (11.5-14.5) % Plt Count (130-400) K/uL BUN (6-23) mg/dl Creatinine (0.6-1.4) mg/dl BUN/Creatinine Ratio (10-20) Glucose (70-99(Fasting)) mg/dl POC Glucose 109 H 129 H 135 H (70-99) mg/dl Hemoglobin A1c (4.5-5.6) % Triglycerides (0-150) mg/dl VLDL Cholesterol, Calc (0-30) mg/dl Urine Ketones (Negative) 05/09/24 05/09/24 05/09/24 Range/Units 06:17 07:13 08:11 RBC 3.43 L (4.70-6.10) M/uL Hgb 10.4 L (14.0-18.0) g/dl Hct 30.4 L (42.0-52.0) % RDW Std Deviation 47.8 H (36.4-46.3) fL RDW Coeff of Aranza 14.8 H (11.5-14.5) % Plt Count 96 L (130-400) K/uL BUN 31 H (6-23) mg/dl Creatinine 1.48 H (0.6-1.4) mg/dl BUN/Creatinine Ratio 20.9 H (10-20) Glucose 118 H (70-99(Fasting)) mg/dl POC Glucose 128 H (70-99) mg/dl Hemoglobin A1c 7.1 H (4.5-5.6) % Triglycerides 213 H (0-150) mg/dl VLDL Cholesterol, Calc 43 H (0-30) mg/dl Urine Ketones Trace H (Negative) 05/09/24 Range/Units 11:36 RBC (4.70-6.10) M/uL Hgb (14.0-18.0) g/dl Hct (42.0-52.0) % RDW Std Deviation (36.4-46.3) fL RDW Coeff of Aranza (11.5-14.5) % Plt Count (130-400) K/uL BUN (6-23) mg/dl Creatinine (0.6-1.4) mg/dl BUN/Creatinine Ratio (10-20) Glucose (70-99(Fasting)) mg/dl POC Glucose 123 H (70-99) mg/dl Hemoglobin A1c (4.5-5.6) % Triglycerides (0-150) mg/dl VLDL Cholesterol, Calc (0-30) mg/dl Urine Ketones (Negative) Diagnostic Findings MRI brain - small R parietal infarct adjacent to prior stroke, unclear if persistent restricted diffusion vs new infarct
[2024-05-09 16:01] VITALS: BP 152/91; PULSE 59; RESP 18; TEMP 97.3; O2SAT 96
--- NOTE | 2024-05-09 16:31 | Discharge Summary ---
Discharge Summary Date of Service May 09, 2024 Principal Dx & Hospital Course #1 = Principal Diagnosis (1) Stroke-like symptoms: (2) History of DVT (deep vein thrombosis): (3) Dyslipidemia: (4) Diabetes mellitus, type 2: (5) BPH (benign prostatic hypertrophy): Plan Patient is a 73 year old male that presented to the ED today with complaints of left sided facial droop, frontal headache, blurry vision, and expressive aphagia. He was in the emergency room yesterday for similar symptoms minus the double blurry vision. A full stroke workup was completed with a head CT and head neck MRIs that were negative for ICH, SDH, stroke or large vessel occlusion. H/O CVA x2 in R MCA (12/2020 and 04/2021) He also has a history of DVT/PE from 1993 and is compliant with Eliquis and is also on aspirin 81mg daily. Not a TNK candidate given that he is on an anticoagulant and outside of timing window. Brain MRI from 05/08 showing linear region of diffusion restriction at the right frontoparietal junction consistent with acute/subacute right MCA territory cortical infarct. Per neurology evaluation, "likely new R MCA stroke adjacent to previous stroke territory suggests either extension or persistent restricted diffusion". Blood pressure has normalized this afternoon. Patient is on appropriate maximal medical therapy- continue Eliquis and aspirin. Continue statin. For migraine headaches, recommended increasing gabapentin frequency to 600mg AM, 300mg at noon and 600mg evening. Continue propranolol as well. Limited abortive therapies for migraines given anticoagulation and thrombocytopenia. Follow up with Dr. Smith of neuro in 4-6 weeks. Uptrending creatinine noted during admission ~ 1.4 (previously 1.1). Renal ultrasound with evidence of chronic medical renal disease. Urine lytes obtained and mentioned below. Please follow up with PCP for continued lab trending and possible nephrology referral. Patient hemodynamically stable at time of discharge home. Notes For Next Care Provider Likely new R MCA stroke adjacent to previous stroke territory suggests either extension or persistent restricted diffusion. Continue maximal medical therapy per neuro Medication Changes From Visit Increase gabapentin frequency to 600mg AM, 300mg at noon and 600mg evening to prevent headaches Continue Eliquis, aspirin, statin for Continue all other home medications as prescribed. Admission HPI Per Admitting Provider Mr. Solis is a 73 year old male that presented to the ED today with complaints of left sided facial droop, frontal headache, blurry vision, and expressive aphagia. He was in the emergency room yesterday for similar symptoms minus the double blurry vision. A full stroke workup was completed with a head CT and head neck MRIs that were negative for ICH, SDH, stroke or large vessel occlusion. Patient has a history of 2 strokes with the first 1 being December 2020 and the second 1 being 05/18/2021. The stroke was located in the right MCA. He also has a history of DVT/PE from 1993 and is currently on Eliquis. Additional past medical history includes [id number] DM2, HLD, thrombocytopenia, and BPH spent status post lots procedure. In the ED today head CT was performed for reimaging and negative for acute stroke. Patient does take a baby aspirin and daily Eliquis. Patient is a non-smoker, no alcohol or recreational drug use including medical marijuana Patient is not a TNK candidate given that he is on an anticoagulant and his symptoms has persisted for the last 24 hours. Most recent A1c dates from March 06, 2024 at 7.5. Patient currently denies headache, dizziness, shortness of breath, chest pain, palpitations, nausea, vomiting, diarrhea, abdominal pain or tenderness, flank pain, hematochezia, urinary changes, recent falls or trauma. Patient is slightly hypertensive 169/100; will allow permissive HTN until MRI has been obtained. Patient lives with a friend and her . The friend states that he has historically had expressive aphasia after his strokes and she noticed some gurgling in the back of his throat with certain movements. Patient's lungs CTA and I suspect that this is more of a loss of esophageal reflex given his history of stroke. Patient will be admitted for further evaluation and management of his acute strokelike symptoms. Will obtain brain MRI, echocardiogram, rule out Lyme's, PT/OT/ST, remain n.p.o. until cleared with dysphagia screen. Given that patient is compliant with medications and has been taking aspirin we will switch over to Plavix. With close monitoring of platelets. Admission Exam Per Admitting Provider Vitals signs as noted above General Appearance:Obese, no apparent distress Head: normocephalic, Atraumatic Eyes: normal inspection, EOMI,+ blurry vision Neck: supple, Trachea midline Respiratory/Chest: Normal breath sounds, CTA, No accessory muscle use Cardiovascular: S1, S2, No murmur Abdomen/GI:Soft, Non tender, Bowel sounds present Extremities/Musculoskeletal:normal inspection, no edema Neurologic/Psych:AAOX3, mild expressive aphasia, otherwise grossly no focal neurological deficits, no facial droop during my encounter Skin: normal color, warm Discharge Exam Gen: WD/WN, NAD, resting in bed comfortably, A&Ox3 HEENT: Normocephalic, atraumatic, conjunctivae moist, sclerae anicteric, mucous membranes moist Lung: Clear to Auscultation bilaterally, no wheezes/rales/rhonchi Heart: Regular rate, regular rhythm, no murmurs, rubs, or gallops Abdomen: Soft, NT, ND +BS x 4 Neuro: Dysphagia improved. Strength 5/5 in all 4 quadrants Extremities: no edema Skin: Warm, no rash Updated Medication List Medication Instructions Recorded Confirmed Type apixaban 5 mg tablet (Eliquis) 5 mg PO BID 30 days #60 tabs 02/02/21 05/08/24 Rx metformin 1,000 mg tablet 1,000 mg PO BIDM 02/12/21 05/08/24 History aspirin 81 mg tablet,delayed 81 mg PO QAM 03/29/21 05/08/24 History release (Bong Low Dose Aspirin) atorvastatin 40 mg tablet (Lipitor) 40 mg PO QAM 03/29/21 05/08/24 History gabapentin 300 mg capsule 600 mg PO BID 03/29/21 05/08/24 History (Neurontin) propranolol 10 mg tablet 10 mg PO BID 07/28/22 05/08/24 History tamsulosin 0.4 mg capsule 0.4 mg PO QAM 08/23/22 05/08/24 History Stool Softener 1 tab PO .EVERY OTHER DAY 05/08/24 05/08/24 History finasteride 5 mg tablet 5 mg PO QAM 05/08/24 05/08/24 History Hospital Stay Data Consultations 05/08/24 11:47 ED Decision to Admit Stat 05/08/24 16:50 Consult Neurology Routine Diagnostic Imagining Performed 05/08/24 11:34 CT head/brain wo con Stat 05/08/24 13:13 MRI Brain [MR brain wo/w con] Routine 05/09/24 08:37 US Renal Bladder [US renal/blad retro comp] Routine Pending Results Patient Have Any Pending Studies at Discharge: No Discharge Instructions Given to Patient (Per Discharging Provider) MEDICATION CHANGES: Increase gabapentin frequency to 600mg AM, 300mg at noon and 600mg evening to prevent headaches Continue Eliquis and aspirin the same as before. Continue all other home medications as prescribed. SUMMARY OF TEST RESULTS: You were admitted to hospital with strokelike symptoms. Brain MRI from 05/08 showing linear region of diffusion restriction at the right frontoparietal junction consistent with acute/subacute right MCA territory cortical infarct. Urine electrolytes: Ur random creat: 76.5, ur total protein 9.9, Pro/Cr ration 0.1, ur sodium 109, ur potassium 44.3, ur chloride 121 Renal ultrasound with evidence of chronic medical renal disease. Please follow up with PCP for continued lab trending and possible nephrology referral. PENDING TEST RESULTS: None RECOMMENDATIONS FOR FOLLOW-UP: Follow up with PCP as scheduled. Follow up with Dr. Smith (neurology) in 4-6 weeks. Continue medication regimen as scheduled aside from changes noted above. OTHER INSTRUCTIONS: Seek medical attention if you have: * temperature above 101 * chest pain or trouble breathing * abdominal pain, nausea, vomiting * diarrhea, dark stools or bloody stools * any unanswered questions or concerns Call 911 if symptoms are severe. Please take good care of yourself. Call if you have any questions or problems. You can reach a [facility] hospitalist on duty at [facility] 24 hours a day by calling [phone]. Total Time Total Time Spent Total Time Spent (In Minutes): 50 Supervising Physician Co-Signing Physician Notes I have seen and discussed the case with the collaborating advanced practitioner. I agree with the above DS I have reviewed and confirmed the patients medical history, the findings on physical examination, and the patients diagnosis and treatment plan with David SAMUEL and agree with the information documented. Patient with resolution of symptoms. No further management for optimization. Renal studies c/w chronic disease. needs close follow up I spent a total of 10 minutes coordinating, documenting, and providing care for this patient excluding time spent in the performance of separately billed services. All of the aforementioned completed outside of collaborating with the assigned advanced practitioner for a full treatment plan. I have reviewed the advanced practitioner's documentation, and I agree with, and take responsibility for the plan of care
[2024-05-11 15:33] LABS: Babesia microti DNA Not Detected (Not Detected)
--- NOTE | 2024-05-13 15:39 | Coding Query ---
CODING QUERY To promote full compliance with coding requirements relating to patient care, provider participation is requested in all cases of certified ethical hacker uncertainty. Please assist us with the question(s) below: HP: He also has a history of DVT/PE from 1993 and is compliant with Eliquis History of PE/DVT: Chronic On Eliquis; continue No scans to show chronicity Coding Question(s): Can you please clarify the patient's PE? [ ] Chronic [ x ] History of [ ] Other [ ] Unable to determine Physician's Response(s): Thank you Cathryn Contreras Principal Diagnosis: "that condition established after study, to be chiefly responsible for occasioning the admission of the patient to the hospital for care." Co-Existing Principal Diagnosis: "when two or more diagnoses equally meet the criteria for principal diagnosis as determined by the circumstances of admission, diagnostic work up, and/or therapy provided, and the Alphabetic Index, Tabular List, or another coding guideline does not provide sequencing direction, any one of the diagnoses may be sequenced first." "When the physician has documented what appears to be a current diagnosis in the body of the record, but has not included the diagnosis in the final diagnostic statement, the physician should be asked whether the diagnosis should be added." (Source Coding [facility] 2 QTR90. p3-4) LEROY
== END 2024-05-09 17:00 | disposition home or self-care (01) | DRG 66 ==
LOC: ED 11:25 → SUATTDRO 12:14 → EDINP 12:14 → 2S 16:47

== ENCOUNTER 2024-05-15 14:51 | Inpatient (IN) ==
--- NOTE | 2024-05-15 15:21 | Emergency Department Note ---
Impression & Plan Stroke-like symptom, Acute alteration in mental status ED Provider Note NAME: MICHAELLE PARSONS AGE: 73 SEX: M : 1950 ARRIVES VIA: Walk-In INFORMANT: Patient, the patient's family member ED PROVIDER(S): Aidan Brar DO CHIEF COMPLAINT: Strokelike symptoms HPI: The patient is a 73-year-old male who presented to the emergency department from his family doctor's office for strokelike symptoms. The patient has a history of recent stroke which was ischemic. He does take blood thinners. He used to be on Coumadin but currently is taking Eliquis. He has been compliant with his outpatient medications. He started noticing headache and difficulty speaking. He also feels off balance. He went to see his family doctor and was sent directly to the emergency department. The patient denies having any recent trauma. He does complain of a frontal headache. The patient significant other is unsure why he had the strokes. She knows that he used to have a history of DVT. ROS: See above HPI for pertinent positives & negatives. A total of 10 systems reviewed and were otherwise negative. PAST MEDICAL HISTORY: See Below PAST SURGICAL HISTORY: See Below FAMILY HISTORY: See Below SOCIAL HISTORY: See Below HOME MEDICATIONS: See Below ALLERGIES: See Below VITALS: See Below PHYSICAL EXAMINATION: GENERAL: The is awake to verbal commands. He is somewhat listless. EYES: The conjunctivae are clear. The pupils are round and reactive. EARS, NOSE, MOUTH AND THROAT: The nose is without any evidence of any deformity. Mucous membranes are moist. Tongue is midline. NECK: The neck is nontender and supple. RESPIRATORY: Normal respiratory effort is noted there is no evidence of wheezing rhonchi or rales CARDIOVASCULAR: Regular rate and rhythm noted there no murmurs rubs or gallops normal S1 normal S2. GASTROINTESTINAL: The abdomen is soft. Abdomen is nontender. MUSCULOSKELETAL/EXTREMITIES: There is no evidence of gross deformity full range of motion is noted in the hips and shoulders. SKIN: There is no obvious evidence of any rash. There are no petechiae, pallor or cyanosis noted. NEUROLOGIC: Patient is awake and oriented to person place and situation. Strength was symmetric. Blindstitch Lining Feller strength was symmetric. There is no drift. There is no facial droop. Speech was soft but understandable. MEDICAL DECISION MAKING: Provider summary Triage Nursing notes reviewed. [Prior medical records reviewed] Vital Signs: reviewed and remarkable for [no significant abnormalities] Differential diagnosis: Infection, dehydration, metabolic abnormality, hypo/hyperglycemia, electrolyte disturbance, anemia, hypoxia, cardiac sources, intracerebral event, toxicologic, neurologic, as well as other pathologies. ER treatment provided: See below Diagnostics interpreted by me: ECG: EKG was obtained in the emergency department. My interpretation is normal sinus rhythm at 61 bpm. There is no ectopy. There is no acute ST segment abnormalities noted. This was compared to a tracing from May 08, 2024. No changes were noted. Cardiac Monitoring: An order was placed for continuous cardiac monitoring. The monitor shows a rate of [] with [] rhythm. Laboratory studies: [As stated above and show below.] Imaging studies: [See below.] [Radiographic imaging was reviewed by myself] Consultation(s): I discussed this case with Dr. Bynum who is on-call for the [facility] hospitalist group. ED COURSE: [] Procedures: [none] [PDMP:reviewed and no issues] [Critical Care:] [None] Past Med/Surg History Problem List (Updated 05/15/24 @ 18:45 by Aidan Brar DO) Acute alteration in mental status (Acute) Stroke-like symptom (Acute) Lethargy Stroke-like symptoms Thrombocytopenia (Acute) Anemia (Acute) H/O: CVA (cerebrovascular accident) (Acute) Brain TIA (Acute) Type 2 diabetes mellitus Osteoarthritis Benign localized prostatic hyperplasia with lower urinary tract symptoms (LUTS) History of stroke History of DVT (deep vein thrombosis) (Chronic) 1993- Diabetes mellitus, type 2 (Chronic) NIDDM BPH (benign prostatic hypertrophy) (Chronic) Dyslipidemia (Chronic) Medical History Knee pain, right MAGY (acute kidney injury) Weakness MAGY (acute kidney injury) Elevated troponin Anemia Kidney stones Stroke 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 ischemic stroke, residual mild weakness and short- term memory impairment Pulmonary embolism 1993- Hydronephrosis with urinary obstruction due to ureteral calculus Hypertension Surgical History History of back surgery No hardware History of cystoscopy Cystoscopy, left retropyelogram, Left ureteral stent placement (9/1/21): LMA#4 at [facility] H/O colonoscopy History of tympanoplasty of right ear Status post appendectomy Family History Uncle Family history of diabetes mellitus Other Heart disease Social History Smoking Status: Never smoker Tobacco Type: Cigarettes Second Hand Exposure: No; Do You Dip or Chew Tobacco: No; Hx Alcohol Use: No Hx Substance Use: No Preferred Language: [place]ese Communication Ability: Effective Wet End Supervisor Required: No Beliefs That Will Affect Care: None marital status: / Current Living Situation: Other Current Living Situation Comment: Lives with friends - emergency contact current occupation: NOT WORKING How many Children do You have: 0 Feels Safe at Home: Yes Assistive Devices: Denture - Upper and Denture - Lower Allergies Allergies Allergy/AdvReac Type Severity Reaction Status Date / Time No Known Allergies Allergy Verified 05/15/24 15:38 Home Meds Home Medications Medication Instructions Recorded Confirmed metformin 1,000 mg tablet 1,000 mg PO BIDM 02/12/21 05/15/24 aspirin 81 mg tablet,delayed 81 mg PO QAM 03/29/21 05/15/24 release (Bong Low Dose Aspirin) atorvastatin 40 mg tablet (Lipitor) 40 mg PO QAM 03/29/21 05/15/24 gabapentin 300 mg capsule See Rx Instructions .Route .COMPLEX 03/29/21 05/15/24 (Neurontin) propranolol 10 mg tablet 10 mg PO BID 07/28/22 05/15/24 tamsulosin 0.4 mg capsule 0.4 mg PO QAM 08/23/22 05/15/24 finasteride 5 mg tablet 5 mg PO QAM 05/08/24 05/15/24 docusate sodium 100 mg capsule 100 mg PO Q OTHER DAY 05/15/24 05/15/24 (Stool Softener) Previous Rx's Medication Instructions Recorded apixaban 5 mg tablet (Eliquis) 5 mg PO BID 30 days #60 tabs 02/02/21 Results & Data (ED) Vital Signs Vital Signs - 24 hr 05/15/24 14:55 05/15/24 17:30 05/15/24 17:36 Temperature 36.5 C Temperature Source Oral Pulse Rate - Lying Pulse Rate - Sitting Pulse Rate - Standing Pulse Rate 74 52 L 52 L Pulse Rate from SpO2 Sensor 52 L Respiratory Rate 16 10 L 10 L Respiratory Effort / Characteristics Non-Labored Spontaneous Respiratory Depth Normal Respiratory Pattern Regular Blood Pressure - Lying Blood Pressure - Sitting Blood Pressure- Standing Blood Pressure 150/84 H 154/102 H Blood Pressure Mean 106 131 Pulse Oximetry 96 98 98 Oxygen Delivery Method Room Air Sepsis Recent Fever Within 48 Hours No Sepsis New/Unexplained Change in Mental Status N/A Sepsis Action Taken by Nursing No Action Required 05/15/24 17:55 05/15/24 18:00 Temperature Temperature Source Pulse Rate - Lying 59 L Pulse Rate - Sitting 71 Pulse Rate - Standing 71 Pulse Rate 54 L Pulse Rate from SpO2 Sensor 55 L Respiratory Rate 12 Respiratory Effort / Characteristics Respiratory Depth Respiratory Pattern Blood Pressure - Lying 161/102 H Blood Pressure - Sitting 149/99 H Blood Pressure- Standing 150/91 H Blood Pressure 168/100 H Blood Pressure Mean 122 Pulse Oximetry 97 Oxygen Delivery Method Sepsis Recent Fever Within 48 Hours Sepsis New/Unexplained Change in Mental Status Sepsis Action Taken by Nursing Laboratory Data 05/15/24 15:15 05/15/24 15:15 Lab Results 05/15/24 Range/Units 15:15 WBC 5.20 (4.8-10.8) K/ul RBC 3.94 L (4.70-6.10) M/uL Hgb 12.0 L (14.0-18.0) g/dl Hct 35.6 L (42.0-52.0) % MCV 90.4 (80.0-100.0) fL MCH 30.5 (25.0-34.0) pg MCHC 33.7 (32.0-36.0) g/dL RDW Std Deviation 49.6 H (36.4-46.3) fL RDW Coeff of Aranza 15.1 H (11.5-14.5) % Plt Count 117 L (130-400) K/uL MPV 10.1 (9.4-12.4) fL Immature Gran % (Auto) 1.2 % Neut % (Auto) 69.6 % Lymph % (Auto) 16.5 % Sterling % (Auto) 9.6 % Eos % (Auto) 2.1 % Baso % (Auto) 1.0 % Neut # (Auto) 3.62 (1.40-6.50) K/uL Lymph # (Auto) 0.86 L (1.20-3.40) K/uL Sterling # (Auto) 0.50 (0.11-0.59) K/uL Eos # (Auto) 0.11 (0.00-0.50) K/uL Baso # (Auto) 0.05 (0.00-0.20) K/uL Immature Gran # (Auto) 0.06 (0.01-0.20) K/uL PT 11.2 (9.0-12.0) Seconds INR 1.0 (0.9-1.1) APTT 33 H (21-31) Seconds PTT Ratio 1.2 Sodium 139 (136-145) mmol/L Potassium 4.6 (3.5-5.1) mmol/L Chloride 107 (98-107) mmol/L Carbon Dioxide 22 (21-32) mmol/L Anion Gap 10 (3-11) BUN 34 H (6-23) mg/dl Creatinine 1.33 (0.6-1.4) mg/dl Est Cr Clr Drug Dosing Not Reportable eGFR 55.74 BUN/Creatinine Ratio 25.6 H (10-20) Glucose 135 H (70-99(Fasting)) mg/dl Calcium 9.4 (8.6-10.3) mg/dl Magnesium 1.7 (1.7-2.4) mg/dl Total Bilirubin 0.7 (0.2-1.0) mg/dl AST 22 (13-39) U/L ALT 21 (7-52) U/L Alkaline Phosphatase 74 (34-104) U/L Troponin I High Sens 5.4 (0-20) pg/ml Total Protein 7.2 (6.0-8.3) gm/dl Albumin 4.5 (3.4-5.0) gm/dl Globulin 2.7 (2.5-4.0) gm/dl Albumin/Globulin Ratio 1.7 (0.9-2) Administered Medications Magnesium Sulfate/Dextrose (Magnesium Sulfate / D5w) 1 gm in 100 mls @ 50 mls/hr IV Q2H WILMER Stop: 05/15/24 21:29 Last Admin: 05/15/24 18:16 Dose: 50 mls/hr Documented By: CEF Discontinued Medications Ioversol (Optiray 320 125ml) 118 ml IV ONCE ONE Stop: 05/15/24 15:47 Last Admin: 05/15/24 15:46 Dose: 118 ml Documented By: PLW Imaging Data Radiologist's Impression: Chest X-Ray 05/15/24 15:18 XR chest 1V portable HISTORY: 73 years-old Male neuro deficit, acute stroke suspected COMPARISON: 06/26/2023 TECHNIQUE: AP view the chest FINDINGS: Cardiomediastinal and hilar silhouettes are within normal limits. No pneumothorax, pleural effusion or airspace consolidation. Unchanged subcentimeter metallic density foreign body projects over the left chest. Bones appear grossly intact. IMPRESSION: No acute process. ACT 112: Negative or not required by law. The above report was generated using voice recognition software. It may contain grammatical, syntax or spelling errors. Electronically signed by: Horacio Ramirez M.D. 05/15/2024 3:[address] 05/15/24 15:18 CT OF THE HEAD WITHOUT CONTRAST CLINICAL HISTORY: neuro deficit, acute stroke suspected COMPARISON STUDY: Head CT and MRI of the brain May 08, 2024. TECHNIQUE: Helical axial images of the head were obtained without IV contrast. Automated exposure control was utilized for the study. A dose lowering technique was utilized adhering to the principles of ALARA. FINDINGS: No acute intracranial hemorrhage, midline shift or mass effect is present. The ventricular system is unremarkable. The basal cisterns are patent. No extra-axial collections are present. There are no findings to suggest acute dural sinus thrombosis or acute territorial infarct. Multifocal encephalomalacia consistent with old infarcts is again noted. This is similar to prior CT and MRI. The small acute right frontoparietal infarct on MRI of May 08, [address]. IMPRESSION: 1. No acute intracranial findings. Multiple old infarcts. 2. The small acute right frontoparietal infarct on MRI of May 08, 2024 is not well visualized by CT. ACT 112: Negative or not required by law. Electronically signed by: Myron Barrientos M.D. 05/15/2024 3:54 PM Head CTA 05/15/24 15:18 CT angio head w con CLINICAL HISTORY: 73 years-old Male with neuro deficit, acute stroke suspected. Acute stroke like symptoms COMPARISON STUDY: Head CT of same day, brain MRI 05/08/2024 TECHNIQUE: Following the IV administration of 118 cc of Optiray, CT angiogram of the brain was performed from the skull base to the vertex. Images are reviewed in the axial, sagittal, and coronal planes. 3-D MIPS images are created and assessed. IV contrast was administered without complication. All measurements were obtained according to NASCET criteria. A dose lowering technique was utilized adhering to the principles of ALARA. FINDINGS: CT ANGIOGRAM OF THE BRAIN: The imaged bilateral internal carotid arteries are patent. The bilateral anterior and middle cerebral arteries are also patent. There is mild multifocal narrowing of the middle cerebral arteries. The vertebrobasilar system and posterior cerebral arteries are widely patent. There is no aneurysm, high-grade stenosis, or proximal branch occlusion identified. Dural sinuses appear patent. Developmentally diminutive distal left vertebral artery terminates into the PICA. The basilar artery is diminutive with areas of mild to moderate multifocal stenoses. origin of the posterior cerebral arteries. Small infarcts of the right frontal lobe seen on prior brain MRI are not well visualized. Involutional changes with chronic microvascular ischemic disease. IMPRESSION: 1. CTA of the head demonstrates no aneurysm, dissection, high-grade stenosis or arterial occlusion. 2. The small right superior frontal lobe infarcts are better seen on the brain MRI from 05/08/2024. ACT 112: Negative or not required by law. The above report was generated using voice recognition software. It may contain grammatical, syntax or spelling errors. Electronically signed by: Horacio Ramirez M.D. 05/15/2024 4:06 PM Neck CTA 05/15/24 15:18 CT angio neck with con CLINICAL HISTORY: neuro deficit, acute stroke suspected TECHNIQUE: CT angiography of the neck was performed following intravenous administration of iodinated contrast. Coronal and sagittal MIPS were obtained from the axial data set and were submitted for review. Automated dose lowering techniques and/or adjustment according to patient size were utilized for this examination. All measurements were calculated based on NASCET criteria. CT DOSE: 930.65 mGy.cm Comparison: Comparison is made to CTA neck 10 9 FINDINGS: Lungs and soft tissues are unremarkable. CTA Neck: A 3 vessel aortic arch is shown. There is no significant atherosclerotic plaque in the aortic arch or the origins of the innominate, left common carotid, and left subclavian arteries. The common carotid, external carotid, cervical segments of the internal carotid arteries, and the cervical segments of the vertebral arteries are patent without hemodynamically significant stenosis. The right vertebral artery is dominant. The left vertebral artery terminates as PICA. IMPRESSION: No occlusion, hemodynamically significant stenosis, or dissection in the major cervical arteries. Assessment of stenosis of the internal carotid arteries is based on NASCET criteria. ACT 112: Negative or not required by law. Electronically signed by: Duran Tovar M.D. 05/15/2024 4:00 PM Discharge Plan Visit Data Chief Complaint: TIA Symptoms Stated Complaint: HIGH BP, DIZZY, BLURRY VISION, HEADACHE ED Provider: Aidan Brar Discharge Problem: Stroke-like symptom, Acute alteration in mental status Forms Stand Alone Forms: My [facility] [employer] Prescriptions Prescriptions: No Action Eliquis 5 mg Tablet 5 mg PO BID 30 Days Qty: 60 3RF metformin 1,000 mg tablet 1,000 mg PO BIDM propranolol 10 mg tablet 10 mg PO BID tamsulosin 0.4 mg capsule 0.4 mg PO QAM gabapentin [Neurontin] 300 mg capsule See Rx Instructions .ROUTE .COMPLEX Rx Instructions: 600mg qAm, 300mg at noon, 600mg HS atorvastatin [Lipitor] 40 mg tablet 40 mg PO QAM aspirin [Bong Low Dose Aspirin] 81 mg tablet,delayed release (DR/EC) 81 mg PO QAM finasteride 5 mg tablet 5 mg PO QAM docusate sodium [Stool Softener] 100 mg Capsule 100 mg PO Q OTHER DAY Referrals Referrals: Keo Patrick DO [Primary Care Provider] -
[2024-05-15 15:39] LABS: Basophils # (auto) 0.05 K/uL (0.00-0.20); Eosinophils # (auto) 0.11 K/uL (0.00-0.50); Eosinophils % (auto) 2.1 %; Hematocrit (blood only) 35.6 % (42.0-52.0); Immature Granulocytes # (auto) 0.06 K/uL (0.01-0.20); Immature Granulocytes % (auto) 1.2 %; Lymphocytes # (auto) 0.86 K/uL (1.20-3.40); Lymphocytes % (auto) 16.5 %; Mean Corpuscular Hemoglobin 30.5 pg (25.0-34.0); Mean Corpuscular Hgb Conc 33.7 g/dL (32.0-36.0); Mean Corpuscular Volume 90.4 fL (80.0-100.0); Mean Platelet Volume 10.1 fL (9.4-12.4); Monocytes % (auto) 9.6 %; Neutrophils # (auto) 3.62 K/uL (1.40-6.50); Neutrophils % (auto) 69.6 %; Platelet Count 117 K/uL (130-400); RDW Coefficient of Variation 15.1 % (11.5-14.5); RDW Standard Deviation 49.6 fL (36.4-46.3); Red Blood Count 3.94 M/uL (4.70-6.10)
--- NOTE | 2024-05-15 15:45 | XRay Report ---
XR chest 1V portable HISTORY: 73 years-old Male neuro deficit, acute stroke suspected COMPARISON: 06/26/2023 TECHNIQUE: AP view the chest FINDINGS: Cardiomediastinal and hilar silhouettes are within normal limits. No pneumothorax, pleural effusion o r airspace consolidation. Unchanged subcentimeter metallic density foreign body projects over the lef t chest. Bones appear grossly intact. IMPRESSION: No acute process. ACT 112: Negative or not required by law. The above report was generated using voice recognition software. It may contain grammatical, syntax o r spelling errors. Electronically signed by: Horacio Ramirez M.D. 05/15/2024 3:43 PM
[2024-05-15] MEDS: OPTIRAY 320 125ml IV ONE (15:46)
[2024-05-15 15:47] LABS: Alanine Aminotransferase 21 U/L (7-52); Albumin Globulin Ratio 1.7 (0.9-2); Albumin Level 4.5 gm/dl (3.4-5.0); Alkaline Phosphatase 74 U/L (34-104); Anion Gap 10 (3-11); Aspartate Aminotransferase 22 U/L (13-39); BUN Creatinine Ratio 25.6 (10-20); Bilirubin,Total 0.7 mg/dl (0.2-1.0); Blood Urea Nitrogen 34 mg/dl (6-23); Calcium 9.4 mg/dl (8.6-10.3); Carbon Dioxide 22 mmol/L (21-32); Chloride 107 mmol/L (98-107); Globulin 2.7 gm/dl (2.5-4.0); Glucose 135 mg/dl (70-99(Fasting)); Magnesium 1.7 mg/dl (1.7-2.4); Potassium 4.6 mmol/L (3.5-5.1); Sodium 139 mmol/L (136-145); Total Protein 7.2 gm/dl (6.0-8.3)
[2024-05-15 15:54] LABS: Troponin I High Sensitivity 5.4 pg/ml (0-20)
--- NOTE | 2024-05-15 15:56 | CT Scan Report ---
CT OF THE HEAD WITHOUT CONTRAST CLINICAL HISTORY: neuro deficit, acute stroke suspected COMPARISON STUDY: Head CT and MRI of the brain May 08, 2024. TECHNIQUE: Helical axial images of the head were obtained without IV contrast. Automated exposure con trol was utilized for the study. A dose lowering technique was utilized adhering to the principles o f ALARA. FINDINGS: No acute intracranial hemorrhage, midline shift or mass effect is present. The ventricular system is unremarkable. The basal cisterns are patent. No extra-axial collections are present. There are no findings to suggest acute dural sinus thrombosis or acute territorial infarct. Multifocal ence phalomalacia consistent with old infarcts is again noted. This is similar to prior CT and MRI. The sm all acute right frontoparietal infarct on MRI of May 08, [address]. IMPRESSION: 1. No acute intracranial findings. Multiple old infarcts. 2. The small acute right frontoparietal infarct on MRI of May 08, 2024 is not well visualized by CT. ACT 112: Negative or not required by law. Electronically signed by: Myron Barrientos M.D. 05/15/2024 3:54 PM
--- NOTE | 2024-05-15 16:01 | CT Scan Report ---
CT angio neck with con CLINICAL HISTORY: neuro deficit, acute stroke suspected TECHNIQUE: CT angiography of the neck was performed following intravenous administration of iodinated contrast. Coronal and sagittal MIPS were obtained from the axial data set and were submitted for rev iew. Automated dose lowering techniques and/or adjustment according to patient size were utilized fo r this examination. All measurements were calculated based on NASCET criteria. CT DOSE: 930.65 mGy.cm Comparison: Comparison is made to CTA neck 10 9 FINDINGS: Lungs and soft tissues are unremarkable. CTA Neck: A 3 vessel aortic arch is shown. There is no significant atherosclerotic plaque in the aor tic arch or the origins of the innominate, left common carotid, and left subclavian arteries. The co mmon carotid, external carotid, cervical segments of the internal carotid arteries, and the cervical segments of the vertebral arteries are patent without hemodynamically significant stenosis. The right vertebral artery is dominant. The left vertebral artery terminates as PICA. IMPRESSION: No occlusion, hemodynamically significant stenosis, or dissection in the major cervical arteries. Assessment of stenosis of the internal carotid arteries is based on NASCET criteria. ACT 112: Negative or not required by law. Electronically signed by: Duran Tovar M.D. 05/15/2024 4:00 PM
--- NOTE | 2024-05-15 16:08 | CT Scan Report ---
CT angio head w con CLINICAL HISTORY: 73 years-old Male with neuro deficit, acute stroke suspected. Acute stroke like symptoms COMPARISON STUDY: Head CT of same day, brain MRI 05/08/2024 TECHNIQUE: Following the IV administration of 118 cc of Optiray, CT angiogram of the brain was perfor med from the skull base to the vertex. Images are reviewed in the axial, sagittal, and coronal planes . 3-D MIPS images are created and assessed. IV contrast was administered without complication. All me asurements were obtained according to NASCET criteria. A dose lowering technique was utilized adherin g to the principles of ALARA. FINDINGS: CT ANGIOGRAM OF THE BRAIN: The imaged bilateral internal carotid arteries are patent. The bilateral anterior and middle cerebral arteries are also patent. There is mild multifocal narrowing of the middle cerebral arteries. The ve rtebrobasilar system and posterior cerebral arteries are widely patent. There is no aneurysm, high-gr skyla stenosis, or proximal branch occlusion identified. Dural sinuses appear patent. Developmentally d iminutive distal left vertebral artery terminates into the PICA. The basilar artery is diminutive wit h areas of mild to moderate multifocal stenoses. origin of the posterior cerebral arteries. Small infarcts of the right frontal lobe seen on prior brain MRI are not well visualized. Involutiona l changes with chronic microvascular ischemic disease. IMPRESSION: 1. CTA of the head demonstrates no aneurysm, dissection, high-grade stenosis or arterial occlusion. 2. The small right superior frontal lobe infarcts are better seen on the brain MRI from 05/08/2024. ACT 112: Negative or not required by law. The above report was generated using voice recognition software. It may contain grammatical, syntax o r spelling errors. Electronically signed by: Horacio Ramirez M.D. 05/15/2024 4:06 PM
[2024-05-15 16:35] LABS: Partial Thromboplastin Ratio 1.2; Partial Thromboplastin Time 33 Seconds (21-31); Prothrombin Time 11.2 Seconds (9.0-12.0)
--- NOTE | 2024-05-15 17:19 | History & Physical Report ---
Date of Service May 15, 2024 Assessment & Plan (1) Lethargy: Plan Lethargy: Likely secondary to closely spaced gabapentin doses today, generally takes at 7 AM and 12 noon, today took at 9 AM and 12 noon. Patient was in his usual state of health until today morning per patient's friend Montse. No slurring of speech or facial deviation noted. Admitting imagings stable compared to his recent head imagings. Patient denies any issues or complaints. Will hold gabapentin today, resume his home dose gabapentin from tomorrow and monitor. PT/OT. No need for MRI as there is no new focal signs or symptoms on exam. Get ortho vitals. Breathing pauses: during sleep per pt's friend Montse, Nocturnal pulse ox. advised them to have full sleep study as OP in coordination w/ PCP office. Other chronic medical conditions: Continue with/resume home meds as and when able. DVT prophylaxis: patient on Eliquis. Full code History of Present Illness Chief Complaint: Weak, voice changed, seemed off balance at PCP office Primary Care Provider: Keo Patrick DO 73-year-old male with PMH of strokes [December 2020, April 2021, April 2024], DVT/PE on Eliquis, T2DM, HLD, thrombocytopenia, BPH presented to the ED at referral from PCP office for noted voice changes/off-balance/weak and concern of stroke. Patient's friend and healthcare TOMMY Montse was at bedside who helped with his tory taking. Patient woke up to exam, no facial deviation or slurring of speech noted. No focal weakness noted on exam. Patient states that generally he takes gabapentin at 7 AM and then at noon and then at evening, he took his gabapentin at 9 AM today followed by another dose at 12 noon, he drove himself to PCP office. Per patient's friend, he was in his usual state of health until today morning. Patient reports eating okay, denies acute changes in bowel or bladder habit. Patient denies fever/cough/chest pain/palpitations/sore throat/belly pain. Medications reviewed with the patient and her friend at bedside in detail. Plan of care discussed with the patient and her friend at bedside in detail, they voiced understanding. Full code Allergies Allergy/AdvReac Type Severity Reaction Status Date / Time No Known Allergies Allergy Verified 05/15/24 15:38 Home Medications Medication Instructions Recorded Confirmed Type apixaban 5 mg tablet (Eliquis) 5 mg PO BID 30 days #60 tabs 02/02/21 05/15/24 Rx metformin 1,000 mg tablet 1,000 mg PO BIDM 02/12/21 05/15/24 History aspirin 81 mg tablet,delayed 81 mg PO QAM 03/29/21 05/15/24 History release (Bong Low Dose Aspirin) atorvastatin 40 mg tablet (Lipitor) 40 mg PO QAM 03/29/21 05/15/24 History gabapentin 300 mg capsule See Rx Instructions .Route .COMPLEX 03/29/21 05/15/24 History (Neurontin) propranolol 10 mg tablet 10 mg PO BID 07/28/22 05/15/24 History tamsulosin 0.4 mg capsule 0.4 mg PO QAM 08/23/22 05/15/24 History finasteride 5 mg tablet 5 mg PO QAM 05/08/24 05/15/24 History docusate sodium 100 mg capsule 100 mg PO Q OTHER DAY 05/15/24 05/15/24 History (Stool Softener) Past Med/Surg History Problem List (Updated 05/15/24 @ 17:25 by Mimi Bynum MD) Lethargy Stroke-like symptoms Thrombocytopenia (Acute) Anemia (Acute) H/O: CVA (cerebrovascular accident) (Acute) Brain TIA (Acute) Type 2 diabetes mellitus Osteoarthritis Benign localized prostatic hyperplasia with lower urinary tract symptoms (LUTS) History of stroke History of DVT (deep vein thrombosis) (Chronic) 1993- qu Diabetes mellitus, type 2 (Chronic) NIDDM BPH (benign prostatic hypertrophy) (Chronic) Dyslipidemia (Chronic) Medical History Knee pain, right MAGY (acute kidney injury) Weakness MAGY (acute kidney injury) Elevated troponin Anemia Kidney stones Stroke 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 ischemic stroke, residual mild weakness and short- term memory impairment Pulmonary embolism 1993- Hydronephrosis with urinary obstruction due to ureteral calculus Hypertension Surgical History History of back surgery No hardware History of cystoscopy Cystoscopy, left retropyelogram, Left ureteral stent placement (03/30/21): LMA#4 at [facility] H/O colonoscopy History of tympanoplasty of right ear Status post appendectomy Family History Uncle Family history of diabetes mellitus Other Heart disease Social History Smoking Status: Never smoker Tobacco Type: Cigarettes Second Hand Exposure: No; Do You Dip or Chew Tobacco: No; Hx Alcohol Use: No Hx Substance Use: No Preferred Language: [place] Communication Ability: Effective Multifocal Button Generator Required: No Beliefs That Will Affect Care: None marital status: / Current Living Situation: Other Current Living Situation Comment: Lives with friends - emergency contact current occupation: NOT WORKING How many Children do You have: 0 Feels Safe at Home: Yes Assistive Devices: Denture - Upper and Denture - Lower Review of Systems Review of Systems: Negative otherwise mentioned in HPI. Physical Exam Physical Exam: GENERAL: sleeping /woke up to exam and oriented x3. NAD, on RA. HEENT: No pallor, no icterus. Pupils equal, round and reactive to light. Oral mucosa moist. NECK: No JVD, no neck masses. HEART: S1 and S2 heard. Regular rate and rhythm. No murmur, no gallop. RESPIRATORY SYSTEM: Normal AP diameter. No accessory muscle use. No wheezing, no crackles. ABDOMEN: Soft, bowel sounds present, nontender, no distention. CENTRAL NERVOUS SYSTEM: No facial droop. Speech is clear. Obeys simple commands. Moves extremities. EXTREMITIES: No edema, no erythema seen. Results & Data Results & Data Vital Signs (Past 12 Hours) Vital Signs Temp Pulse Resp BP Pulse Ox O2 Del Method 05/15/24 14:55 36.5 C 74 16 150/84 H 96 Room Air Code Status & VTE Plan VTE Prophylaxis Plan VTE Prophylaxis will be ordered: Yes
[2024-05-15] MEDS: MAGNESIUM SULFATE / D5W 1 GM/100 ML BAG IV SCH (18:16)
--- NOTE | 2024-05-15 18:54 | Emergency Department Note ---
Impression & Plan Stroke-like symptom, Acute alteration in mental status ED Provider Note NAME: MICHAELLE PARSONS AGE: 73 SEX: M : 1950 ARRIVES VIA: Walk-In INFORMANT: Patient, the patient's family member ED PROVIDER(S): Aidan Brar DO CHIEF COMPLAINT: Altered mental status HPI: The patient is a 73-year-old male who presented to the emergency department for an evaluation of strokelike symptoms. He went to see his family doctor. He was off balance and had a headache. His voice appeared to be dysarthric. He was sent to the emergency department for further evaluation. According to his family members he has been compliant with his outpatient medications. He does take oral anticoagulation. The patient complains of a frontal headache. ROS: See above HPI for pertinent positives & negatives. A total of 10 systems reviewed and were otherwise negative. PAST MEDICAL HISTORY: See Below PAST SURGICAL HISTORY: See Below FAMILY HISTORY: See Below SOCIAL HISTORY: See Below HOME MEDICATIONS: See Below ALLERGIES: See Below VITALS: See Below PHYSICAL EXAMINATION: GENERAL: The patient is awake to verbal commands. He is slow to answer questions and follow commands. EYES: The conjunctivae are clear. The pupils are round and reactive. EARS, NOSE, MOUTH AND THROAT: The nose is without any evidence of any deformity. NECK: The neck is nontender and supple. RESPIRATORY: Normal respiratory effort is noted there is no evidence of wheezing rhonchi or rales CARDIOVASCULAR: Regular rate and rhythm noted there no murmurs rubs or gallops normal S1 normal S2. GASTROINTESTINAL: The abdomen is soft. Abdomen is nontender. MUSCULOSKELETAL/EXTREMITIES: There is no evidence of gross deformity full range of motion is noted in the hips and shoulders. SKIN: There is no obvious evidence of any rash. There are no petechiae, pallor or cyanosis noted. NEUROLOGIC: Patient is awake and oriented to person place and situation. Strength was symmetric but diminished. Voice was soft. There is no facial droop noted. MEDICAL DECISION MAKING: The patient is a 73-year-old male who presented to the emergency department from his primary care physician's office for possible strokelike symptoms. The patient has had 2 episodes where he came to our facility and was diagnosed with ischemic stroke. The patient does have a history of cerebral artery disease. The patient has been compliant with his outpatient medications. He does take an oral anticoagulant. Symptoms began less than 3 hours ago however the patient is not a candidate for TNK given his use of oral anticoagulation as well as his recent ischemic stroke. The patient does not appear to have a large vessel occlusion. I discussed the patient's laboratory and radiographic studies with him and his family ember. He recently was started on medication that included Neurontin. His significant other thinks he may have taken this inappropriately. It is possible what I am seeing today is the patient taking an extra dose of Neurontin. I discussed the patient's condition with the on-call [facility]. He may require further inpatient monitoring to ensure this does not another ischemic stroke. Triage Nursing notes reviewed. Prior medical records reviewed Vital Signs: reviewed and remarkable for no significant abnormalities Differential diagnosis: Infection, hypoglycemia, electrolyte abnormalities, overdose, toxicologic, cardiac sources, intracerebral event, neurologic, trauma, as well as other pathologies. ER treatment provided: See below Diagnostics interpreted by me: ECG: EKG was obtained in the emergency department. My interpretation is normal sinus rhythm at 61 bpm. There is no ectopy. There is no acute ST segment abnormalities noted. This was compared to a tracing from May 08, 2024. No changes were noted. Cardiac Monitoring: An order was placed for continuous cardiac monitoring. The monitor shows a rate of 54 bpm with sinus bradycardia. Laboratory studies: As stated above and show below. Imaging studies: See below. Radiographic imaging was reviewed by myself Consultation(s): I discussed this case with Dr. Bynum who is on-call for the [facility] group. Past Med/Surg History Problem List Acute alteration in mental status (Acute) Stroke-like symptom (Acute) Lethargy Stroke-like symptoms Thrombocytopenia (Acute) Anemia (Acute) H/O: CVA (cerebrovascular accident) (Acute) Brain TIA (Acute) Type 2 diabetes mellitus Osteoarthritis Benign localized prostatic hyperplasia with lower urinary tract symptoms (LUTS) History of stroke History of DVT (deep vein thrombosis) (Chronic) 1993- Diabetes mellitus, type 2 (Chronic) NIDDM BPH (benign prostatic hypertrophy) (Chronic) Dyslipidemia (Chronic) Medical History Knee pain, right MAGY (acute kidney injury) Weakness MAGY (acute kidney injury) Elevated troponin Anemia Kidney stones Stroke 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 ischemic stroke, residual mild weakness and short- term memory impairment Pulmonary embolism 1993- Eliquis Hydronephrosis with urinary obstruction due to ureteral calculus Hypertension Surgical History History of back surgery No hardware History of cystoscopy Cystoscopy, left retropyelogram, Left ureteral stent placement (03/30/21): LMA#[address] [facility] H/O colonoscopy History of tympanoplasty of right ear Status post appendectomy Family History Uncle Family history of diabetes mellitus Other Heart disease Social History Smoking Status: Never smoker Tobacco Type: Cigarettes Second Hand Exposure: No; Do You Dip or Chew Tobacco: No; Hx Alcohol Use: No Hx Substance Use: No Preferred Language: Faroese Communication Ability: Effective Granite Fabricator Required: No Beliefs That Will Affect Care: None marital status: / Current Living Situation: Other Current Living Situation Comment: Lives with friends - emergency contact current occupation: NOT WORKING How many Children do You have: 0 Feels Safe at Home: Yes Assistive Devices: Denture - Upper and Denture - Lower Allergies Allergies Allergy/AdvReac Type Severity Reaction Status Date / Time No Known Allergies Allergy Verified 05/15/24 15:38 Home Meds Home Medications Medication Instructions Recorded Confirmed metformin 1,000 mg tablet 1,000 mg PO BIDM 02/12/21 05/15/24 aspirin 81 mg tablet,delayed 81 mg PO QAM 03/29/21 05/15/24 release (Bong Low Dose Aspirin) atorvastatin 40 mg tablet (Lipitor) 40 mg PO QAM 03/29/21 05/15/24 gabapentin 300 mg capsule See Rx Instructions .Route .COMPLEX 03/29/21 05/15/24 (Neurontin) propranolol 10 mg tablet 10 mg PO BID 07/28/22 05/15/24 tamsulosin 0.4 mg capsule 0.4 mg PO QAM 08/23/22 05/15/24 finasteride 5 mg tablet 5 mg PO QAM 05/08/24 05/15/24 docusate sodium 100 mg capsule 100 mg PO Q OTHER DAY 05/15/24 05/15/24 (Stool Softener) Previous Rx's Medication Instructions Recorded apixaban 5 mg tablet (Eliquis) 5 mg PO BID 30 days #60 tabs 02/02/21 Results & Data (ED) Vital Signs Vital Signs - 24 hr 05/15/24 14:55 05/15/24 17:30 05/15/24 17:36 Temperature 36.5 C Temperature Source Oral Pulse Rate - Lying Pulse Rate - Sitting Pulse Rate - Standing Pulse Rate 74 52 L 52 L Pulse Rate from SpO2 Sensor 52 L Respiratory Rate 16 10 L 10 L Respiratory Effort / Characteristics Non-Labored Spontaneous Respiratory Depth Normal Respiratory Pattern Regular Blood Pressure - Lying Blood Pressure - Sitting Blood Pressure- Standing Blood Pressure 150/84 H 154/102 H Blood Pressure Mean 106 131 Pulse Oximetry 96 98 98 Oxygen Delivery Method Room Air Sepsis Recent Fever Within 48 Hours No Sepsis New/Unexplained Change in Mental Status N/A Sepsis Action Taken by Nursing No Action Required 05/15/24 17:55 05/15/24 18:00 Temperature Temperature Source Pulse Rate - Lying 59 L Pulse Rate - Sitting 71 Pulse Rate - Standing 71 Pulse Rate 54 L Pulse Rate from SpO2 Sensor 55 L Respiratory Rate 12 Respiratory Effort / Characteristics Respiratory Depth Respiratory Pattern Blood Pressure - Lying 161/102 H Blood Pressure - Sitting 149/99 H Blood Pressure- Standing 150/91 H Blood Pressure 168/100 H Blood Pressure Mean 122 Pulse Oximetry 97 Oxygen Delivery Method Sepsis Recent Fever Within 48 Hours Sepsis New/Unexplained Change in Mental Status Sepsis Action Taken by [facility] Medications Current Medication List: was personally reviewed by me Laboratory Data Attestation: I reviewed the patient's lab results. 05/15/24 15:15 05/15/24 15:15 Lab Results 05/15/24 Range/Units 15:15 WBC 5.20 (4.8-10.8) K/ul RBC 3.94 L (4.70-6.10) M/uL Hgb 12.0 L (14.0-18.0) g/dl Hct 35.6 L (42.0-52.0) % MCV 90.4 (80.0-100.0) fL MCH 30.5 (25.0-34.0) pg MCHC 33.7 (32.0-36.0) g/dL RDW Std Deviation 49.6 H (36.4-46.3) fL RDW Coeff of Aranza 15.1 H (11.5-14.5) % Plt Count 117 L (130-400) K/uL MPV 10.1 (9.4-12.4) fL Immature Gran % (Auto) 1.2 % Neut % (Auto) 69.6 % Lymph % (Auto) 16.5 % [place] % (Auto) 9.6 % Eos % (Auto) 2.1 % Baso % (Auto) 1.0 % Neut # (Auto) 3.62 (1.40-6.50) K/uL Lymph # (Auto) 0.86 L (1.20-3.40) K/uL [place] # (Auto) 0.50 (0.11-0.59) K/uL Eos # (Auto) 0.11 (0.00-0.50) K/uL Baso # (Auto) 0.05 (0.00-0.20) K/uL Immature Gran # (Auto) 0.06 (0.01-0.20) K/uL PT 11.2 (9.0-12.0) Seconds INR 1.0 (0.9-1.1) APTT 33 H (21-31) Seconds PTT Ratio 1.2 Sodium 139 (136-145) mmol/L Potassium 4.6 (3.5-5.1) mmol/L Chloride 107 (98-107) mmol/L Carbon Dioxide 22 (21-32) mmol/L Anion Gap 10 (3-11) BUN 34 H (6-23) mg/dl Creatinine 1.33 (0.6-1.4) mg/dl Est Cr Clr Drug Dosing Not Reportable eGFR 55.74 BUN/Creatinine Ratio 25.6 H (10-20) Glucose 135 H (70-99(Fasting)) mg/dl Calcium 9.4 (8.6-10.3) mg/dl Magnesium 1.7 (1.7-2.4) mg/dl Total Bilirubin 0.7 (0.2-1.0) mg/dl AST 22 (13-39) U/L ALT 21 (7-52) U/L Alkaline Phosphatase 74 (34-104) U/L Troponin I High Sens 5.4 (0-20) pg/ml Total Protein 7.2 (6.0-8.3) gm/dl Albumin 4.5 (3.4-5.0) gm/dl Globulin 2.7 (2.5-4.0) gm/dl Albumin/Globulin Ratio 1.7 (0.9-2) Administered Medications Magnesium Sulfate/Dextrose (Magnesium Sulfate / D5w) 1 gm in 100 mls @ 50 mls/hr IV Q2H WILMER Stop: 05/15/24 21:29 Last Admin: 05/15/24 18:16 Dose: 50 mls/hr Documented By: CEF Discontinued Medications Ioversol (Optiray 320 125ml) 118 ml IV ONCE ONE Stop: 05/15/24 15:47 Last Admin: 05/15/24 15:46 Dose: 118 ml Documented By: PLW Imaging Data Attestation: I personally reviewed and interpreted this imaging study as follows: My Impression: 1 view chest x-ray was obtained in the emergency department. My interpretation is no free air or definite infiltrate, final report below. CT the brain was obtained in the emergency department. My interpretation is no intracranial hemorrhage or mass effect, final report below. Radiologist's Impression: Chest X-Ray 05/15/24 15:18 XR chest 1V portable HISTORY: 73 years-old Male neuro deficit, acute stroke suspected COMPARISON: 06/26/2023 TECHNIQUE: AP view the chest FINDINGS: Cardiomediastinal and hilar silhouettes are within normal limits. No pneumothorax, pleural effusion or airspace consolidation. Unchanged subcentimeter metallic density foreign body projects over the left chest. Bones appear grossly intact. IMPRESSION: No acute process. ACT 112: Negative or not required by law. The above report was generated using voice recognition software. It may contain grammatical, syntax or spelling errors. Electronically signed by: Horacio Ramirez M.D. 05/15/2024 3:[address] 05/15/24 15:18 CT OF THE HEAD WITHOUT CONTRAST CLINICAL HISTORY: neuro deficit, acute stroke suspected COMPARISON STUDY: Head CT and MRI of the brain May 08, 2024. TECHNIQUE: Helical axial images of the head were obtained without IV contrast. Automated exposure control was utilized for the study. A dose lowering technique was utilized adhering to the principles of ALARA. FINDINGS: No acute intracranial hemorrhage, midline shift or mass effect is present. The ventricular system is unremarkable. The basal cisterns are patent. No extra-axial collections are present. There are no findings to suggest acute dural sinus thrombosis or acute territorial infarct. Multifocal encephalomalacia consistent with old infarcts is again noted. This is similar to prior CT and MRI. The small acute right frontoparietal infarct on MRI of May 08, [address] IMPRESSION: 1. No acute intracranial findings. Multiple old infarcts. 2. The small acute right frontoparietal infarct on MRI of May 08, 2024 is not well visualized by CT. ACT 112: Negative or not required by law. Electronically signed by: Myron Barrientos M.D. 05/15/2024 3:54 PM Head CTA 05/15/24 15:18 CT angio head w con CLINICAL HISTORY: 73 years-old Male with neuro deficit, acute stroke suspected. Acute stroke like symptoms COMPARISON STUDY: Head CT of same day, brain MRI 05/08/2024 TECHNIQUE: Following the IV administration of 118 cc of Optiray, CT angiogram of the brain was performed from the skull base to the vertex. Images are reviewed in the axial, sagittal, and coronal planes. 3-D MIPS images are created and assessed. IV contrast was administered without complication. All measurements were obtained according to NASCET criteria. A dose lowering technique was utilized adhering to the principles of ALARA. FINDINGS: CT ANGIOGRAM OF THE BRAIN: The imaged bilateral internal carotid arteries are patent. The bilateral anterior and middle cerebral arteries are also patent. There is mild multifocal narrowing of the middle cerebral arteries. The vertebrobasilar system and posterior cerebral arteries are widely patent. There is no aneurysm, high-grade stenosis, or proximal branch occlusion identified. Dural sinuses appear patent. Developmentally diminutive distal left vertebral artery terminates into the PICA. The basilar artery is diminutive with areas of mild to moderate multifocal stenoses. origin of the posterior cerebral arteries. Small infarcts of the right frontal lobe seen on prior brain MRI are not well visualized. Involutional changes with chronic microvascular ischemic disease. IMPRESSION: 1. CTA of the head demonstrates no aneurysm, dissection, high-grade stenosis or arterial occlusion. 2. The small right superior frontal lobe infarcts are better seen on the brain MRI from 05/08/2024. ACT 112: Negative or not required by law. The above report was generated using voice recognition software. It may contain grammatical, syntax or spelling errors. Electronically signed by: Horacio Ramirez M.D. 05/15/2024 4:06 PM Neck CTA 05/15/24 15:18 CT angio neck with con CLINICAL HISTORY: neuro deficit, acute stroke suspected TECHNIQUE: CT angiography of the neck was performed following intravenous administration of iodinated contrast. Coronal and sagittal MIPS were obtained from the axial data set and were submitted for review. Automated dose lowering techniques and/or adjustment according to patient size were utilized for this examination. All measurements were calculated based on NASCET criteria. CT DOSE: 930.65 mGy.cm Comparison: Comparison is made to CTA neck 10 9 FINDINGS: Lungs and soft tissues are unremarkable. CTA Neck: A 3 vessel aortic arch is shown. There is no significant atherosclerotic plaque in the aortic arch or the origins of the innominate, left common carotid, and left subclavian arteries. The common carotid, external carotid, cervical segments of the internal carotid arteries, and the cervical segments of the vertebral arteries are patent without hemodynamically significant stenosis. The right vertebral artery is dominant. The left vertebral artery terminates as PICA. IMPRESSION: No occlusion, hemodynamically significant stenosis, or dissection in the major cervical arteries. Assessment of stenosis of the internal carotid arteries is based on NASCET criteria. ACT 112: Negative or not required by law. Electronically signed by: Duran Tovar M.D. 05/15/2024 4:00 PM Discharge Plan Visit Data Chief Complaint: TIA Symptoms Stated Complaint: HIGH BP, DIZZY, BLURRY VISION, HEADACHE ED Provider: Aidan Brar Discharge Problem: Stroke-like symptom, Acute alteration in mental status Patient Disposition: Being Evaluated by Hospitalist Forms Stand Alone Forms: My [facility] Prescriptions Prescriptions: No Action Eliquis 5 mg Tablet 5 mg PO BID 30 Days Qty: 60 3RF metformin 1,000 mg tablet 1,000 mg PO BIDM propranolol 10 mg tablet 10 mg PO BID tamsulosin 0.4 mg capsule 0.4 mg PO QAM gabapentin [Neurontin] 300 mg capsule See Rx Instructions .ROUTE .COMPLEX Rx Instructions: 600mg qAm, 300mg at noon, 600mg HS atorvastatin [Lipitor] 40 mg tablet 40 mg PO QAM aspirin [Bong Low Dose Aspirin] 81 mg tablet,delayed release (DR/EC) 81 mg PO QAM finasteride 5 mg tablet 5 mg PO QAM docusate sodium [Stool Softener] 100 mg Capsule 100 mg PO Q OTHER DAY Referrals Referrals: Keo Patrick DO [Primary Care Provider] -
[2024-05-15] MEDS ORDERED: CARBOHYDRATES FOR HYPOGLYCEMIA PO PRN (21:39)
[2024-05-15] MEDS ORDERED: GLUCAGON FOR INJ 1 MG VIAL SQ PRN (21:39)
[2024-05-15] MEDS ORDERED: DEXTROSE 50% 50 ML SYRINGE IV PRN (21:39)
[2024-05-15] MEDS ORDERED: GLUCOSE 10 TAB/TUBE PO PRN (21:39)
[2024-05-15] MEDS ORDERED: ONDANSETRON INJ 2 MG/ML 2 ML VIAL IV PRN (21:39)
[2024-05-15] MEDS ORDERED: GLUCOSE 40% GEL 15 GM TUBE PO PRN (21:39)
[2024-05-15] MEDS: APIXABAN 5 MG TABLET PO SCH (22:06)
[2024-05-15] MEDS: GABAPENTIN 600 MG TAB PO SCH (22:06)
[2024-05-15] MEDS: PROPRANOLOL HCL 10 MG TAB PO SCH (22:06)
[2024-05-15] MEDS: INSULIN ASPART PER UNIT CHARGE SC SCH (22:36)
[2024-05-16 03:19] LABS: Hemoglobin 10.8 g/dl (14.0-18.0); Mean Corpuscular Hemoglobin 30.8 pg (25.0-34.0); Mean Corpuscular Hgb Conc 34.8 g/dL (32.0-36.0); Mean Corpuscular Volume 88.3 fL (80.0-100.0); Mean Platelet Volume 9.9 fL (9.4-12.4); Platelet Count 96 K/uL (130-400); RDW Coefficient of Variation 15.3 % (11.5-14.5); RDW Standard Deviation 49.1 fL (36.4-46.3); Red Blood Count 3.51 M/uL (4.70-6.10); White Blood Count 5.12 K/ul (4.8-10.8)
[2024-05-16] MEDS: ACETAMINOPHEN 1,000 MG/100 ML VIAL IV STA (03:20)
[2024-05-16 03:40] LABS: BUN Creatinine Ratio 26.6 (10-20); Calcium 9.3 mg/dl (8.6-10.3); Creatinine Clr Calc Pharmacy 53.6 ml/min; Magnesium 2.2 mg/dl (1.7-2.4); Potassium 4.3 mmol/L (3.5-5.1)
--- NOTE | 2024-05-16 04:28 | Communication Note ---
Date of Service: May 16, 2024 Patient with bradycardic episodes, lowest heart rate of 40s as per RN. No chest pain, no SOB. Headache unrelieved by IV Tylenol. Patient refusing other pain medications as per RN. EKG as per my interpretation rate 50, sinus bradycardia, LAD, LAFB, T wave abnormalities septal leads AP Headache Episodic bradycardia Repeat CT head Hold Eliquis and aspirin Rx until CT head resulted
[2024-05-16] MEDS ORDERED: ATROPINE SULFATE 0.1 MG/ML 10ML SYR IV PRN (04:29)
[2024-05-16] MEDS: oxyCODONE HCL IR 5 MG TAB (IMMEDIATE RELEASE) PO STA (04:39)
--- NOTE | 2024-05-16 07:57 | Electrocardiogram Report ---
Test Reason : Blood Pressure : */* mmHG Vent. Rate : 49 BPM Atrial Rate : 49 BPM P-R Int : 168 ms QRS Dur : 88 ms QT Int : 448 ms P-R-T Axes : 60 -16 32 degrees QTcB Int : 404 ms Sinus bradycardia Otherwise normal ECG When compared with ECG of 15-May-2024 15:49, No significant change was found Confirmed by Ariel Cantor ([id number]) on 05/16/2024 7:57:32 AM Referred By: REFERRED SELF Confirmed By: Ariel Cantor
--- NOTE | 2024-05-16 07:57 | Electrocardiogram Report ---
Test Reason : Blood Pressure : */* mmHG Vent. Rate : 61 BPM Atrial Rate : 61 BPM P-R Int : 162 ms QRS Dur : 80 ms QT Int : 420 ms P-R-T Axes : 68 -11 55 degrees QTcB Int : 422 ms Normal sinus rhythm Low voltage QRS Borderline ECG When compared with ECG of 08-May-2024 11:45, No significant change was found Confirmed by Ariel Cantor ([id number]) on 05/16/2024 7:57:27 AM Referred By: Confirmed By: Ariel Cantor
--- NOTE | 2024-05-16 07:58 | CT Scan Report ---
CT head/brain wo con CLINICAL HISTORY: radha beauchamp Technique: Contiguous axial CT images of the head were acquired from the base of the skull to the sam huber without intravenous contrast administration. Images were viewed in brain, subdural and [facility]. Automated dose lowering techniques and/or adjustment according to patient size were utilized for this exam. Comparison: Comparison is made to CT head 05/15/2024 Findings: Areas of decreased attenuation are present in the periventricular and subcortical white matter bilate rally consistent with small vessel ischemic disease. Generalized cerebral atrophy with commensurate e nlargement of the ventricles, sulci, and cisterns is also present. There is no acute intracranial hem orrhage or evidence of acute territorial infarction. No shift of the midline structures, mass effect, or extra-axial abnormalities are shown. Atherosclerotic calcifications are present in the intracran ial segments of the internal carotid arteries. Imaged portions of the paranasal sinuses and mastoid air cells are clear. The orbits appear normal. There are no acute fractures of the calvaria or scalp swelling. Impression: No acute intracranial hemorrhage, no evidence of acute territorial infarction or other acute intracra nial disease process. ACT 112: Negative or not required by law. Electronically signed by: Duran Tovar M.D. 05/16/2024 7:57 AM
[2024-05-16] MEDS: ATORVASTATIN 40 MG TAB PO SCH (09:07)
[2024-05-16] MEDS: FINASTERIDE 5 MG TAB PO SCH (09:07)
[2024-05-16] MEDS: TAMSULOSIN HCL 0.4 MG CAP PO SCH (09:07)
[2024-05-16] MEDS: DOCUSATE SODIUM 100 MG CAP PO SCH (09:12)
--- OUTSIDE RECORDS SUMMARY | 2024-05-16 10:12 | External Medical Summary | Summary of Care ---
Author Name Unknown Organization [facility] Address [address] [place] [address] Phone [phone] Care Team Providers Care New Order Clerk Name Role Phone Jemimatia Keo Watson DO Primary Care Provider [phone] Encounter Details Date Type Department Care Team (Late st Contact Info) Description 05/12/2024 [facility] External Data Unspecified Department Allergies No known active allergiesdocumented as of this encounter (statuses as of 05/12/2024) Medications Medication Sig Dispensed Refills Start Date End Date Status Aspirin 81 MG Oral CapsuleIndications:[facility] Take 81 mg by mouth in the [...] and 1 Tablet before bedtime. 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 400 Capsule 3 08/16/2023 Active Finasteride 5 MG Oral Tablet (Proscar)Indications :BPH with obstruction/lower urinary tract symptoms Take 1 Tablet by mouth in the morning. 100 Tablet 3 08/16/2023 Active Atorvastatin Calcium 40 MG Oral Tablet (Lipitor)Indications :Dyslipidemia, goal LDL below 100 Take 1 Tablet by mouth in the morning. 100 Tablet 3 08/16/2023 Active Apixaban 5 MG Oral Tablet (Eliquis)Indications :Recurrent deep vein thrombosis (DVT) (HCC) Take 1 Tablet by mouth in the morning and 1 Tablet before bedtime. 200 Tablet 3 08/16/2023 Active documented as of this encounter (statuses as of 05/12/2024) Active Problems Problem Noted Date Diagnosed Date [...] protocol #14. ICD-10 update of inactive term alf current use of anticoagulant therapy 0 08/05/2003 Overview: ICD-10 update of inactive term Varicose vein of leg documented as of this encounter (statuses as of 05/12/2024) Resolved Problems Problem Noted Date Diagnosed Date [...] 01/24/2002 02/04/2021 VENOUS THROMBOSIS Recurrent 1983 and 199301/23/2020 Malaise and fatigue 11/20/19 12 PERFORAT TYMPAN MEMB NOS documented as of this encounter (statuses as of 05/12/2024) Immunizations Name Administration Dates Next Due H1N1 [...] on file documented as of this encounter Plan of Treatment Upcoming Encounters Date Type Department Care Team (Late st Contact Info) Description 05/12/2024 2:20 PM EDT Office Visit Family Practice [address] [facility] [address] [facility] [place] [id number] Keo Patrick, DO [address] [facility], [place] [address] 05/12/2024 2:40 PM EDT Pharmacy Family Practice [address] [facility] [address] [place] [id number] College, Pharmacist [address] [address] 06/10/2024 12:30 PM EST Office Visit Neurology [facility] [address] [place] [address] Nikki Santillan PA-C [address] [facility] [address] 06/25/2024 11:45 AM EST Office Visit Urology, [facility] [address] [place] [address] Alfredo Maguire MD [address] [place] [address] 07/10/2024 10:20 AM EST Office Visit Family Practice [address] [facility] [address] [place] [address] Keo Patrick, DO [address] [place] [address] Scheduled Procedures Name Priority Associated Diagnoses Date/Ti me COLONOSCOPY FLEXIBLE PROXIMAL DIAGNOSTIC Recall History of colon polyps Health Maintenance Due Date Last Done Comments Adult Wellness Visit 11/08/2017 11/08/2016 Influenza Vaccine (FLU shot) (#1) 2024 06/27/2021, 05/12/2016, 04/20/2015, Additional history exists GFR 05/08/2024 11/07/2023, 04/0 10/2023, 07/10/2023, Additional history exists Albumin/Creatinine Ratio 06/15/2024 023, 08/03/2022, 09/13/2021, Additional history exists CKD PHOS USE SMARTSET 37907 06/29/2024 12/0 07/2022, 06/28/2023, 06/27/2023, Additional history exists Diabetic Eye Exam 08/15/2024 08/15/2023, , 06/05/2022, Additional history exists Depression Monitoring 08/16/2024 08/16/2023 HbA1c 09/06/2024 03/06/2024, 04/0 10/2023, 06/14/2023, Additional history exists CKD HGB USE SMARTSET 69726 10/31/202410/31, 11/01/2023, 07/10/2023, Additional history exists Diabetic [...] Documents on File Type Date Recorded Patient Filling Station Attendant Expl anation Advance Directives and Living Will 05/13/2022 ADVANCE DIRECTIVE / LIVING WILL Power of Top Frame Fitter 05/13/2022 POWER OF A TTORNEY * Full [...] Care Agent (per Health Care Power of Top Frame Fitter document) Care Teams New Order Clerk Relationship Specialty Start Date End Date Keo Patrick DO [address] [place] [address] PCP - General Internal Medicine 03/04/24 documented as of this encounter
--- OUTSIDE RECORDS SUMMARY | 2024-05-16 10:12 | External Medical Summary ---
Author Name Unknown Address Unknown Organization K01:[facility] [place] - [address] [facility] [address] Laboratory Report Ordering Provider Test Date Status VASYL ELLIS 05/12/2024 14:55:01 Final Observation Date Value Abnormality Reference (Units ) Status CRP, low-sensitivity 05/12/2024 14:55:01 <3 <=5 (mg/L) Final Performing Location [facility] - [address] [place] [address]
--- OUTSIDE RECORDS SUMMARY | 2024-05-16 10:12 | External Medical Summary ---
Author Name Unknown Address Unknown Organization K01:[facility] [place] [address] [place] [address] Laboratory Report Ordering Provider Test Date Status VASYL ELLIS 05/12/2024 15:02:51 Final Normal: <30 mg/g creatinine< br/>High: 30-300 mg/g creatinine
Very High: >300 mg/g creatinine
Nephrotic: >2200 mg/g creatinine Observation Date Value Abnormality Reference (Units ) Status Albumin, Urine 05/12/2024 15:02:51 3.00 (mg/dL) Final Creatinine, Urine 05/12/2024 15:02:51 209 (mg/dL) Final Albumin/Creatinine [Mass Ratio] in Urine 05/12/2024 15:02:51 14 <30 (mg/g Creat) Final Performing Location [facility] [place] [address] [place] [address]
--- OUTSIDE RECORDS SUMMARY | 2024-05-16 10:12 | External Medical Summary | Summary of Care ---
Author Name Unknown Organization [facility] Address [address] [address] Phone [phone] Care Team Providers Care Crawler Tractor Operator Name Role Phone Keo Patrick DO Primary Care Provider [phone] Reason for Visit * Reason Onset Date Comments Hospital Follow-Up Hospital Follow-Up 05/12/2024 Encounter Details Date Type Department Care Team (Latest Contact Info) Description 05/12/2024 2:20 PM EDT Office Visit Family Practice [address] [facility] [address] [place] [address] Keo Patrick DO [address] [place] [address] Cerebrovascular disease, arteriosclerotic, post-stroke*; Other headache syndrome; 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 (HCC); Chronic kidney disease, stage 3a (HCC); Recurrent deep vein thrombosis (DVT) ([facility]); Hemiplegia and hemiparesis following cerebral infarction affecting left non-dominant side (HCC); Current mild episode of major depressive disorder without prior episode (HCC); Dyslipidemia, goal LDL below 100; History of elevated PSA; Degeneration of intervertebral disc of lumbar region with discogenic back pain; Aphasia, post-stroke; Hospital discharge follow-up Allergies No known active allergiesdocumented as of this encounter (statuses as of 05/12/2024) Medications Medication Sig Dispensed Refills Start Date End Date Status Aspirin 81 MG Oral CapsuleIndications:[facility] Take 81 mg by mouth in the morning. Active Acetaminophen 500 MG Oral Tablet Take 3 Tablets by mouth daily as needed for Pain, Breakthrough. Active Sennosides-Docusate Sodium 8.6-50 MG Oral Tablet Take 1 Tablet by mouth every evening. As needed Active Tamsulosin HCl 0.4 MG Oral Capsule (Flomax)Indications: BPH with obstruction/lower urinary tract symptoms Take 1 Capsule by mouth in the morning. 100 Capsule 08/16/2023 Active Propranolol HCl 10 MG Oral [...] WITH EVENING MEAL 200 Tablet 08/16/2023 Active Finasteride 5 MG Oral Tablet [...] Tablet before bedtime. 200 Tablet 08/16/2023 Active Gabapentin 300 MG Oral Capsule (Neurontin) Take 2 capsules by mouth in the morning, 1 capsule by mouth at noon and 2 capsules by mouth in the evening. Active documented as of this encounter (statuses as of 05/12/2024) Active Problems Problem Noted Date Diagnosed Date Cerebrovascular disease, arteriosclerotic, post- stroke 05/12/2024 Chronic kidney disease, stage 3a 11/05/2023 Overview: [...] protocol #14. ICD-10 update of inactive term residential current use of anticoagulant therapy 0 08/05/2003 [...] Exposure: Past Smokeless Tobacco: Former Snuff, Chew Tobacco Cessation:Counseling Given: Yes Alcohol Use Standard Drinks/Week Comments No 0 (1 standard drink = 0.6 oz pur e alcohol) PHQ-2 Answer Date Recorded PHQ Adult Total Score 0 05/12/2024 Hunger Vital Sign Answer Date Recorded Within the past 12 months, y ou worried that your food would run out before you got the money to buy more. Never true 05/12/20 24 Within the past 12 months, t he food you bought just didn't last and you didn't have money to get more. Never true 05/12/2024 Childcare Answer Date Recorded Do you feel overwhelmed with taking care of a child, family member or friend? No 05/12/2024 Does your family need help f inding childcare? (Household - for ages 0-17 years) Not on file 05/12/2024 Clothing Answer Date Recorded Have you been unable to get clothing when it was really needed? No 05/12/2024 Is your family able to get c lothes or diapers when needed? (Household - for ages 0-17 years) Not on file 05/12/2024 Personal Safety Answer Date Recorded Do you feel unsafe or have concerns for your saf ety? No 05/12/2024 Do you have concerns for you r family's safety? (Household - for ages 0-17 years) Not on file 05/12/2024 Utilities Answer Date Recorded Do you have trouble paying y our heating, water, or electric bill? No 05/12/2024 Is your family able to pay t he heat, water, or electric bill? (Household - for ages 0-17 years) Not on file 05/12/2024 Does your family have access to good internet? (Household - for ages 0-17 years) Not on file 05/12/2024 Employment Status Answer Date Recorded Are you unemployed or without regular income? No 05/12/2024 Does the household have a re gular source of income? (Household - for ages 0-17 years) Not on file 05/12/2024 Social Connections Answer Date Recorded How often do you feel lonely or isolated from th ose around you? Never 05/12/2024 Financial Resource Strain Answer Date R ecorded Do you have any trouble payi ng for your medications, or do you think you might in the future? No 05/12/2024 Does your family have troubl e paying for medicine? (Household - for ages 0-17 years) Not on file 05/12/2024 Transportation Needs Answer Date Record ed READ ONLY Do you have troubl e getting a ride to medical visits or work? Never True 05/12/2024 Does your family have a hard time getting a ride to doctors visits? (Household - for ages 0-17 years) Not on file 05/12/2024 Has lack of transportation k ept you from medical appointments, meetings, work, or from getting things needed for daily living? Check all that apply. No 05/12/2024 Do you (or your family) have trouble finding or paying for a ride (transportation)? (Household - for ages 0-17 years) Not on file 05/12/2024 Housing Stability Answer Date Recorded Do you currently live in a s helter or have no steady place to sleep at night? No 05/12/2024 READ ONLY Do you think you a re at risk of becoming homeless? No 05/12/2024 Does your family worry about paying for your home or becoming homeless? (Household - for ages 0-17 years) Not on file 1 Are you homeless or worried that you might be in the future? No 05/12/2024 Are you (or your family) dajuan eless or worried that you might be in the future? (Household - for ages 0-17 years) Not on file Food Insecurity Answer Date Recorded Do you need food for this week? No 05/12/2024 Are you able to get enough f ood for your family? (Household - for ages 0-17 years) Not on file 05/12/2024 Does your family need food t his week? (Household - for ages 0-17 years) Not on file 05/12/2024 Do you always have enough fo od for your family? (Household - for ages 0-17 years) Not on file 05/12/2024 Sex and Gender Information Value Date Recorded Sex Assigned at Male 01/22/2019 7:34 AM EDT Gender Identity Male 01/22/2019 7:34 AM EDT Sexual Orientation Straight 01/22/2019 7: 34 AM EDT Job Start Date Occupation Industry Not on file Not on file Not on file documented as of this encounter Last Filed Vital Signs Vital Sign Reading Time Taken Comments Blood Pressure 128/86 05/12/2024 2:16 PM EDT Pulse 84 05/12/2024 2:16 PM EDT Temperature 36.1 C (97 F) 05/12/2024 2:16 PM EDT Respiratory Rate 16 05/12/2024 2:16 PM EDT Oxygen Saturation 96% 05/12/2024 2:16 PM EDT Inhaled Oxygen Concentration - - Weight 92.6 kg (204 lb 1.6 oz) 05/12/2024 2:16 P M EDT Height 170.2 cm (5' 7") 05/12/2024 2:16 PM EDT Body Mass Index 31.97 05/12/2024 2:16 PM EDT documented in this encounter Progress Notes * Keo Patrick, - 05/12/2024 2:45 PM EDT SUBJECTIVE: Neo Solis is a 73 year old male. Chief Complaint Patient presents with Hospital Follow-Up Hospital Follow-Up Recent Admission: Patient was recently admitted to [facility]. The date of discharge was 05/09/2024. Discharge report received and reviewed. HPI: Patient is a 73 year old male with a history of DM Type II, Hyperlipidemia, right frontal CVA in 2017, left Parietal Lobe CVA in 05/2021, Recurrent DVT, PVD and Lumbar Spinal Stenosis that is seen for hospital follow up. The patient was admitted to [facility] due to CVA. He had left facial droop, headache , blurry vision, and aphasia. He has chronic aphasia. New right frontoparietal region CVA was present on MRI. No aspiration present on Speech Therapy evaluation. No chest pain or shortness of breathare present. Weight is stable and appetite is good. Speech has improved and is back to baseline. Frontal headache is still present. Gabapentin was increased while hospitalized to treat headache. Headache is unchanged. No visual disturbance or nausea are present. 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 current use of anticoagulant therapy Type 2 diabetes mellitus with hemoglobin A1c goal of less than 8.0% (HCC) Dyslipidemia, goal LDL below 100 BPH with obstruction/lower urinary tract symptoms History of elevated PSA Lumbar degenerative disc disease HTN, goal below 140/90 Recurrent deep vein thrombosis (DVT) ([facility]) Kidney stone on left side History of CVA (cerebrovascular accident) Aphasia, post-stroke ACP (advance care planning) Hemiplegia and hemiparesis following cerebral infarction affecting left non- dominant side (HCC) Other abnormalities of gait and mobility Current mild episode of major depressive disorder without prior episode (HCC) Odontogenic infection of jaw 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 (HCC) Chronic kidney disease, stage 3a (HCC) Cerebrovascular disease, arteriosclerotic, post-stroke Current Outpatient Medications Medication Sig Dispense Refill Aspirin 81 MG Oral Capsule Take 81 mg by mouth in the morning. Acetaminophen 500 MG Oral Tablet Take 3 Tablets by mouth daily as needed for Pain, Breakthrough. Sennosides-Docusate Sodium 8.6-50 MG Oral Tablet Take 1 Tablet by mouth every evening. As needed Tamsulosin HCl 0.4 MG Oral Capsule (Flomax) Take 1 Capsule by mouth in the morning. 100 Capsule 3 Propranolol HCl 10 MG Oral Tablet (Inderal) Take 1 Tablet by mouth in the morning and 1 Tablet before bedtime. 200 Tablet 3 metFORMIN HCl 1000 MG Oral Tablet (Glucophage) TAKE 1 TABLET BY MOUTH TWICE DAILY WITH MORNING MEALAND WITH EVENING MEAL 200 Tablet 3 Finasteride 5 MG Oral Tablet (Proscar) Take 1 Tablet by mouth in the morning. 100 Tablet 3 Atorvastatin Calcium 40 MG Oral Tablet (Lipitor) Take 1 Tablet by mouth in the morning. 100 Tablet 3 Apixaban 5 MG Oral Tablet (Eliquis) Take 1 Tablet by mouth in the morning and 1 Tablet before bedtime. 200 Tablet 3 Gabapentin 300 MG Oral Capsule (Neurontin) Take 2 capsules by mouth in the morning, 1 capsule by mouth at noon and 2 capsules by mouth in the evening. No current facility-administered medications for this visit. Current and discharge medications have been reconciled. Review of patient's allergies indicates: No Known Allergies OBJECTIVE: BP 128/86 | Pulse 84 | Temp 36.1 C (97 F) | Resp 16 | Ht 1.702 m (5' 7") | Wt 92.6 kg (204 lb 1.6 oz) | SpO2 96% | BMI 31.97 kg/m | BSA 2.09 m REVIEW OF SYSTEMS: Review of Systems Constitutional: Positive for fatigue. Negative for appetite change, chills, fever and unexpected weight change. HENT: Negative for congestion, sore throat and trouble swallowing. Respiratory: Negative for cough, shortness of breath and wheezing. Cardiovascular: Negative for chest pain, palpitations and leg swelling. Gastrointestinal: Negative for abdominal pain, blood in stool, constipation, diarrhea, nausea and vomiting. Genitourinary: Negative for dysuria, frequency and hematuria. Musculoskeletal: Positive for gait problem. Negative for back pain. Neurological: Positive for speech difficulty and headaches. Negative for dizziness, syncope and weakness. Psychiatric/Behavioral: Negative for confusion, decreased concentration and sleep disturbance. PHYSICAL EXAM: BP 128/86 | Pulse 84 | Temp 36.1 C (97 F) | Resp 16 | Ht 1.702 m (5' 7") | Wt 92.6 kg (204 lb 1.6 oz) | SpO2 96% | BMI 31.97 kg/m | BSA 2.09 m Physical Exam Vitals and nursing note reviewed. Constitutional: General: He is not in acute distress. Appearance: He is not toxic-appearing. HENT: Head: Normocephalic and atraumatic. Cardiovascular: Rate and Rhythm: Normal rate and regular rhythm. Heart sounds: Normal heart sounds. No murmur heard. No gallop. Pulmonary: Effort: Pulmonary effort is normal. Breath sounds: Normal breath sounds. No wheezing, rhonchi or rales. Abdominal: General: Bowel sounds are normal. There is no distension. Palpations: Abdomen is soft. Tenderness: There is no abdominal tenderness. Musculoskeletal: Right lower leg: No edema. Left lower leg: No edema. Neurological: Mental Status: He is alert and oriented to person, place, and time. Mental status is at baseline. Motor: No weakness. Gait: Gait normal. Psychiatric: Mood and Affect: Mood normal. Behavior: Behavior normal. Thought Content: Thought content normal. ASSESSMENT/PLAN: Cerebrovascular disease, arteriosclerotic, post-stroke (Primary) - CBC WITH WBC DIFFERENTIAL; Future; Expected date: 05/12/2024 - COMPREHENSIVE METABOLIC PANEL; Future; Expected date: 05/12/2024 - CBC WITH WBC DIFFERENTIAL - COMPREHENSIVE METABOLIC PANEL Continue Apixaban, Atorvastatin, and ASA Follow with Neurology in 4-6 weeks Other headache syndrome - ERYTHROCYTE SEDIMENTATION RATE (ESR); Future; Expected date: 05/12/2024 - CRP (INFLAMMATORY MARKER); Future; Expected date: 05/12/2024 - ERYTHROCYTE SEDIMENTATION RATE (ESR) - CRP (INFLAMMATORY MARKER) Continue Gabapentin 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 (HCC) - ALBUMIN / CREATININE RATIO, URINE; Future; Expected date: 05/12/2024 - ALBUMIN / CREATININE RATIO, URINE Continue Metformin Chronic kidney disease, stage 3a (HCC) - CBC WITH WBC DIFFERENTIAL; Future; Expected date: 05/12/2024 - COMPREHENSIVE METABOLIC PANEL; Future; Expected date: 05/12/2024 - CBC WITH WBC DIFFERENTIAL - COMPREHENSIVE METABOLIC PANEL Recurrent deep vein thrombosis (DVT) (HCC) Continue Apixaban Hemiplegia and hemiparesis following cerebral infarction affecting left non- dominant side (HCC) Current mild episode of major depressive disorder without prior episode (HCC) Dyslipidemia, goal LDL below 100 Continue Atorvastatin History of elevated PSA Degeneration of intervertebral disc of lumbar region with discogenic back pain Aphasia, post-stroke Back to baseline Hospital discharge follow-up - DISCH MED RECON CUR MED LIS Follow Up: Return in about 2 weeks (around 05/26/2024), or if symptoms worsen or fail to improve. PLAN: Keo Patrick DO documented in this encounter Plan of Treatment Upcoming Encounters Date Type Department Care Team (Late st Contact Info) Description 05/15/2024 1:30 PM EDT Office Visit Family Practice 65 [facility], [address] [place] [address] [employer], [employer] Signal Repairer Fam [employer]ac [address] [place] [address], [place] [address] 05/27/2024 10:00 AM EDT Office Visit Family Practice [address] [place] [address] [address] [place] [address] Keo Patrick, DO [address] [place] [address] 06/10/2024 12:30 PM EST Office Visit Neurology [facility] [address] [place] [address] Nikki Santillan PA-C [address] [place] [address] 06/25/2024 11:45 AM EST Office Visit Urology, [facility] [address] [facility] [place] [address] Alfredo Maguire MD [address] [place] [address] 07/10/2024 10:20 AM EST Office Visit Family Practice [address] [place] [address] [address] [place] [address] Keo Patrick, [address] [place] [address] Pending Results Name Type Priority Associated Diagnoses Date /Time ALBUMIN / CREATININE RATIO, URINE Lab Routine 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 (HCC) 05/12/2024 3:02 PM EDT CBC WITH WBC DIFFERENTIAL Lab Routine Cerebrovascular disease, arteriosclerotic, post-stroke Chronic kidney disease, stage 3a (HCC) 05/12/2024 2:55 PM EDT ERYTHROCYTE SEDIMENTATION RATE (ESR) Lab Routine Other headache syndrome 05/12/2024 2:55 PM EDT CRP (INFLAMMATORY MARKER) Lab Routine Other headache syndrome 05/12/2024 2:55 PM EDT COMPREHENSIVE METABOLIC PANEL Lab Routine Cerebrovascular disease, arteriosclerotic, post-stroke Chronic kidney disease, stage 3a (HCC) 05/12/2024 2:55 PM EDT CBC Lab Routine Cerebrovascular disease, arteriosclerotic, post-stroke Chronic kidney disease, stage 3a (HCC) 05/12/2024 2:55 PM EDT DIFFERENTIAL, AUTOMATED Lab Routine Cerebrovascular disease, arteriosclerotic, post-stroke Chronic kidney disease, stage 3a (HCC) 05/12/2024 2:55 PM EDT Scheduled Orders Name Type Priority Associated Diagnoses Orde r Schedule ALBUMIN / CREATININE RATIO, URINE Lab Routine 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 (HCC) Expected: 05/12/2024, Expires: 05/12/2025 CBC WITH WBC DIFFERENTIAL Lab Routine Cerebrovascular disease, arteriosclerotic, post-stroke Chronic kidney disease, stage 3a (HCC) Expected: 05/12/2024 (Approximate), Expires: 05/12/2025 ERYTHROCYTE SEDIMENTATION RATE (ESR) Lab Routine Other headache syndrome Expected: 05/12/2024 (Approximate), Expires: 05/12/2025 CRP (INFLAMMATORY MARKER) Lab Routine Other headache syndrome Expected: 05/12/2024 (Approximate), Expires: 05/12/2025 COMPREHENSIVE METABOLIC PANEL Lab Routine Cerebrovascular disease, arteriosclerotic, post-stroke Chronic kidney disease, stage 3a (HCC) Expected: 05/12/2024 (Approximate), Expires: 05/12/2025 Scheduled Procedures Name Priority Associated Diagnoses Date/Ti me COLONOSCOPY FLEXIBLE PROXIMAL DIAGNOSTIC Recall History of colon polyps Health Maintenance Due Date Last Done Comments Adult Wellness Visit 11/08/2017 11/08/2016 Influenza Vaccine (FLU shot) (#1) 2024 06/27/2021, 05/12/2016, 04/20/2015, Additional history exists GFR 05/08/2024 11/07/2023, 04/0 10/2023, 07/10/2023, Additional history exists Albumin/Creatinine Ratio 06/15/2024 023, 08/03/2022, 09/13/2021, Additional history exists CKD PHOS USE SMARTSET 89295 06/29/2024 12/0 07/2022, 06/28/2023, 06/27/2023, Additional history exists Diabetic Eye Exam 08/15/2024 08/15/2023, , 06/05/2022, Additional history exists HbA1c 09/06/2024 03/06/2024, 04/0 10/2023, 06/14/2023, Additional history exists CKD HGB USE SMARTSET 31749 10/31/202410/31, 11/01/2023, 07/10/2023, Additional history exists Diabetic Foot Exam 10/31/2024 11/01/2023, 0 11/01/2023, 10/23/2022, Additional history exists Colonoscopy 01/25/2025 01/25/2022, 06/2 03/2022, 07/18/2018, Additional history exists B-12 03/06/2025 03/06/2024, 07/0 12/2022, 01/12/2022, Additional history exists Depression Monitoring 05/12/2025 05/12/2024 DTap/Tdap Vaccines (2 - Td or Tdap) [...] Not on filedocumented as of this encounter Visit Diagnoses Diagnosis Cerebrovascular disease, arteriosclerotic, post-stroke- Primary Cerebral atherosclerosis Other headache syndrome 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 (HCC) Chronic kidney disease, stage 3a (HCC) Recurrent deep vein thrombosis (DVT) (HCC) Hemiplegia and hemiparesis following cerebral infarction affecting left non- dominant side (HCC) Current mild episode of major depressive disorder without prior episode (HCC) Dyslipidemia, goal LDL below 100 Other and unspecified hyperlipidemia History of elevated PSA Personal history of other specified diseases Degeneration of intervertebral disc of lumbar region with discogenic back pain Aphasia, post-stroke Unspecified cerebral artery occlusion with cerebral infarction Hospital discharge follow-up Other follow-up examination documented in this encounter Advance Directives Documents on File Type Date Recorded 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
--- OUTSIDE RECORDS SUMMARY | 2024-05-16 10:12 | External Medical Summary ---
Author Name Unknown Address Unknown Organization [id number]:[facility] - [address] [facility] [address] Laboratory Report Ordering Provider Test Date Status VASYL ELLIS 05/12/2024 14:55:01 Final Observation Date Value Abnormality Reference (Units ) Status WBC, Total 05/12/2024 14:55:01 7.60 4.00-10.80 (K/uL) Final RBC 05/12/2024 14:55:01 4.06 4.50-5.25 (M/uL) Final Hemoglobin 05/12/2024 14:55:01 12.5 Below low normal 14.0-16.8 (g/dL) Final HCT 05/12/2024 14:55:01 38.8 Below low normal 40.0-48.4 (%) Final MCV 05/12/2024 14:55:01 95.6 82.0-99.5 (fL) Final MCH 05/12/2024 14:55:01 30.8 27.0-34.0 (pg) Final MCHC 05/12/2024 14:55:01 32.2 32.0-36.0 (g/dL) Final RDW 05/12/2024 14:55:01 15.2 11.5-15.5 (%) Final Platelets 05/12/2024 14:55:01 130 Below low normal 140-400 (K/uL) Final MPV 05/12/2024 14:55:01 11.4 6.6-11.1 (fL) Final Nucleated erythrocytes/100 leukocytes [Ratio] in Blood by Automated count 05/12/2024 14:55:01 0 <=0 (/100 WBCs) Final Performing Location [facility] - [address] [facility] [address]
--- OUTSIDE RECORDS SUMMARY | 2024-05-16 10:12 | External Medical Summary | Summary of Care ---
Author Name Unknown Organization [facility] Address [address] [place] [address] Phone [phone] Care Team Providers Care Intellectual Property Paralegal Name Role Phone Keo Patrick Shirley VERDIN Primary Care Provider [phone] Reason for Visit * Reason Comments Dosage Adjustment In Person (Anticoag Cl inic) Medication Management Encounter Details Date Type Department Care Team (Late st Contact Info) Description 05/12/2024 2:40 PM EDT Pharmacy Family Practice [address] [phone] College, Pharmacist [address] [address] Medication management* Allergies No known active allergiesdocumented as of this encounter (statuses as of 05/14/2024) Medications Medication Sig Dispensed Refills Start Date End Date Status Aspirin 81 MG Oral CapsuleIndications:[facility] Take 81 mg by mouth in the [...] Tablet (Eliquis)Indications :Recurrent deep vein thrombosis (DVT) ([facility]) Take 1 Tablet by mouth in the morning and 1 Tablet before bedtime. 200 Tablet 08/16/2023 Active Gabapentin 300 MG Oral Capsule (Neurontin) Take 2 capsules by mouth in the morning, 1 capsule by mouth at noon and 2 capsules by mouth in the evening. Active documented as of this encounter (statuses as of 05/14/2024) Active Problems Problem Noted Date Diagnosed Date [...] protocol #14. ICD-10 update of inactive term [employer]orer [employer] current use of anticoagulant therapy 0 08/05/2003 Overview: ICD-10 update of inactive term Varicose vein of leg documented as of this encounter (statuses as of 05/14/2024) Resolved Problems Problem Noted Date Diagnosed Date [...] as of this encounter (statuses as of 05/14/2024) Immunizations Name Administration Dates Next Due H1N1 [...] on file documented as of this encounter Progress Notes * Kamini Falk, [facility] - 05/14/2024 2:50 PM EDT Agree with plan as documented. Kamini Negrete, Pharm D, BCACP Clinical Pharmacist Medication Therapy Management Clinic 05/14/2024, 2:50 PM * Ramírez Ruth, [facility] - 05/12/2024 1:55 PM EDT Medication Therapy Disease Management Clinic - Medication Reconciliation Encounter Type: discussed with patient - presented with male neighbor/friend Med Bottles Available for Review: no Med Rec Reason: ARMANDO Date of Hospital Admission/Primary Diagnosis: 05/08/24 - Right MCA stroke Date of Discharge from Hospital: 05/09/24 Medication changes during admission/on discharge: Added: N/A Modified: -Increase gabapentin 600 mg AM, 300 mg noon, 600 mg pm for CAMILO Discontinued: N/A Does the patient currently have all of their medications in their home?: Yes, Prescription insurance information: [facility] Do you have any other prescription coverage: Yes, PACE Preferred pharmacy: [facility] ([facility]) [x] Problem list reviewed [x] Allergies reviewed and updated if needed [x] Drug interaction check completed [x] HEDIS list addressed Immunizations: Pt refused all vaccines Medication Organization/Adherence: Has home care nurse or caregiver: yes - neighbors help with health management Patient uses a pill box? Yes, refill(s) completed by friend When you are at home, how often do you miss doses of medications? Less than once a week Missed all nightly meds - the night of discharge How difficult is it for you to pay for your medications? Not difficult at all How often do you experience side effects from your medications? Never Labs/Vitals/Risk Scores: The ASCVD Risk score (Yamila CHAMBERLAIN, et al., 2019) failed to calculate for the following reasons: The patient has a prior [place] or stroke diagnosis BP Readings from Last 3 Encounters: 03/06/24 136/70 12/03/23 132/62 11/01/23 116/66 Recent Labs Units 03/06/24 1106 11/01/23 1051 06/14/23 1107 [facility] 7.5* 7.4* 6.8* Recent Labs Units 11/07/23 0851 11/01/23 1051 07/10/23 1229 ESTIMATED GLOMERULAR FILTRATION RATE - [facility] mL/min 57* 48* 59* Creatinine clearance cannot be calculated (Patient's most recent lab result is older than the maximum 180 days allowed.) Assessment & Plan: Medication discrepancies identified: -N/A Dose/frequency of medications appropriate for current renal function? yes Other medication problems identified: -Pt/neighbor reported additional gabapentin was sent to [facility] upon discharge for additional supply. Patient education provided: -Pt reported persistent headache. Upon inquiry, pt reported that he does not know if the increased gabapentin dose is helpful for his headache. He stated that his headache is slightly better. During the visit, he had to pause to speak due to his headache. -Pt reported not taking blood pressure at home. Educated pt and his clamp operator to aim for measuring blood pressure once daily. Referral pended for follow up management of: N/A Summary- Changes & Recommendations: Medication review completed. Pt refused all vaccines. I spent a total of 40-54 minutes (exact time 40 mins) on the date of service in preparation, delivery, and documentation of the care provided to [facility] excluding any time spent in the performance of separately billed services or time spent by another provider/QHP. Ramírez Ruth PharmD, [facility] PGY1 Appointment Scheduler Medication Therapy Management Clinic 05/12/2024 4:38 PM documented in this encounter Plan of Treatment Upcoming Encounters Date Type Department Care Team (Late st Contact Info) Description 05/15/2024 1:30 PM EDT Office Visit Family Practice 65 [facility], [address] [place] [address] College, Health Cryptographer Fam [employer]ac [address] [place] [address], [place] [address] 05/27/2024 10:00 AM EDT Office Visit Family Practice [address] [place] [address] [address] [place] [phone] Keo Patrick, DO [address] [place] [address] 06/10/2024 12:30 PM EST Office Visit Neurology [facility] [address] [place] [address] Nikki Santillan PA-C [address] [place] [address] 06/25/2024 11:45 AM EST Office Visit Urology, [facility] [address] [facility] [place] [address] Alfredo Maguire MD [address] [address] 07/10/2024 10:20 AM EST Office Visit Family Practice [address] [place] [address] [address] [place] [address] Keo Patrick, [address] [place] [address] Scheduled Procedures Name Priority Associated Diagnoses Date/Ti me COLONOSCOPY FLEXIBLE PROXIMAL DIAGNOSTIC Recall History of colon polyps Health Maintenance Due Date Last Done Comments Adult Wellness Visit 11/08/2017 11/08/2016 Influenza Vaccine (FLU shot) (#1) 2024 06/27/2021, 05/12/2016, 04/20/2015, Additional history exists CKD PHOS USE SMARTSET 62841 06/29/2024 12/0 07/2022, 06/28/2023, 06/27/2023, Additional history exists Diabetic Eye Exam 08/15/2024 08/15/2023, , 06/05/2022, Additional history exists HbA1c 09/06/2024 03/06/2024, 04/0 10/2023, 06/14/2023, Additional history exists Diabetic Foot Exam 10/31/2024 11/01/2023, 0 11/01/2023, 10/23/2022, Additional history exists GFR 11/10/2024 05/12/2024, 04, 11/01/2023, Additional history exists Colonoscopy 01/25/2025 01/25/2022, 12/29, 07/18/2018, Additional history exists B-12 03/06/2025 03/06/2024, 07/0 12/2022, 01/12/2022, Additional history exists Albumin/Creatinine Ratio 05/12/2025 024, 06/15/2023, 08/03/2022, Additional history exists CKD HGB USE SMARTSET 82650 05/12/202505/12, 05/12/2024, 11/01/2023, Additional history exists Depression Monitoring 05/12/2025 05/12/2024 [...] as of this encounter Visit Diagnoses Diagnosis Medication management- Primary Encounter for long-term (current) use of other medications documented in this encounter Advance Directives Documents on File Type Date Recorded Patient Service Restorer Emergency Expl anation Advance Directives and Living Will 05/13/2022 ADVANCE DIRECTIVE / LIVING WILL Power of Oncology Technician 05/13/2022 POWER OF A TTORNEY * Full [...] Care Agent (per Health Care Power of Oncology Technician document) Care Teams Intellectual Property Paralegal Relationship Specialty Start Date End Date Keo Patrick DO [address] [place] [address] PCP - General Internal Medicine 03/04/24 documented as of this encounter
--- OUTSIDE RECORDS SUMMARY | 2024-05-16 10:12 | External Medical Summary ---
Author Name Unknown Address Unknown Organization K01:[facility] [place] - [address] [facility] [place] [address] Laboratory Report Ordering Provider Test Date Status VASYL ELLIS 05/12/2024 14:55:01 Final Observation Date Value Abnormality Reference (Units ) Status BUN 05/12/2024 14:55:01 29 Above high normal 6-20 (mg/dL) Final Creatinine 05/12/2024 14:55:01 1.5 Above high normal 0.6-1.2 (mg/dL) Final Glomerular filtration rate/1.73 sq M.predicted [Volume Rate/Area] in Serum, Plasma or Blood by Creatinine-based formula (CKD-EPI) 05/12/2024 14:55:01 48 Below low normal >=60 (mL/min) Final eGFR is calculated based on the CKD-EPI 2020 equation. Sodium 05/12/2024 14:55:01 143 135-146 (m mol/L) Final Potassium 05/12/2024 14:55:01 4.7 3.5-5.1 (m mol/L) Final Cl 05/12/2024 14:55:01 106 98-107 (mm ol/L) Final CO2 05/12/2024 14:55:01 24 22-32 (mmo l/L) Final Anion gap 05/12/2024 14:55:01 13 7-15 (mmol /L) Final Glucose 05/12/2024 14:55:01 218 Above high normal 70 -120 (mg/dL) Final Albumin 05/12/2024 14:55:01 4.7 3.8-5.0 (g /dL) Final AST (Aspartate aminotransferase) 05/12/2024 14:55:01 40 10-50 (U/L) Fin al Alk Phos 05/12/2024 14:55:01 94 35-130 (U/ L) Final Bilirubin, Total 05/12/2024 14:55:01 0.4 <=1 .2 (mg/dL) Final Calcium 05/12/2024 14:55:01 9.4 8.4-10.2 ( mg/dL) Final Protein 05/12/2024 14:55:01 6.6 6.0-8.3 (g /dL) Final ALT (Alanine aminotransferase) 05/12/2024 14:55:01 38 10-50 (U/L) García galindo Performing Location [facility] [place] - [address] [facility] [address]
--- OUTSIDE RECORDS SUMMARY | 2024-05-16 10:12 | External Medical Summary ---
Author Name Unknown Address Unknown Organization K01:[facility] [place] - [address] [facility] [place] [address] Laboratory Report Ordering Provider Test Date Status VASYL ELLIS 05/12/2024 14:55:01 Final Observation Date Value Abnormality Reference (Units ) Status SYNC LEUKOCYTES IN BLOOD BY AUTOMATED COUNT 05/12/2024 14:55:01 7.60 4.00-10.80 (K/uL) Final Segs 05/12/2024 14:55:01 72.1 40.0-75.0 (%) Final Lymphs % 05/12/2024 14:55:01 16.4 Below low normal 18.0-42.0 (%) Final Monos 05/12/2024 14:55:01 7.0 1.0-11.0 (%) Final Eosinophils 05/12/2024 14:55:01 2.8 0.0-6.0 (%) Final Basos 05/12/2024 14:55:01 0.8 0.0-2.0 (%) Final Immature Granulocyte, Percent 05/12/2024 14:55:01 0.9 0.0-2.0 (%) Final Absolute Segs 05/12/2024 14:55:01 5.48 1.80-7.70 (K/uL) Final Lymphs, absolute 05/12/2024 14:55:01 1.25 1.00-4.80 (K/ul) Final Monos, Abs 05/12/2024 14:55:01 0.53 0.00-1.10 (K/uL) Final Eos, Abs 05/12/2024 14:55:01 0.21 0.00-0.70 (K/uL) Final Basos, Abs 05/12/2024 14:55:01 0.06 0.00-0.20 (K/uL) Final Immature Granulocytes, Number 05/12/2024 14:55:01 0.07 0.00-0.20 (K/uL) Final Performing Location [facility] - [address] [facility] [address]
[2024-05-16] MEDS: GABAPENTIN 300 MG CAP PO SCH (12:28)
--- NOTE | 2024-05-16 13:29 | Hospitalist Progress Note ---
Date of Service May 16, 2024 Assessment & Plan (1) Lethargy: Plan Pt is a 73-year-old male with PMHx significant for strokes [December 2020, April 2021, April 2024], DVT/PE on Eliquis, T2DM, HLD, thrombocytopenia, BPH who presented to the ED at referral from PCP office for noted voice changes/off- balance/weakness and concern of stroke. Stroke-like symptoms Acute metabolic/toxic Encephalopathy patient with recent stroke diagnosed about a week ago Repeat head CT, head CTA, neck CTA and repeat head CT overnight once more all without acute findings Patient presenting with lethargy, concern for too much gabapentin use Patient alert and oriented x 3 on exam on 05/16/2024, laying in bed comfortably watching TV Consider MRI with any worsening symptoms Delirium precautions. Frequent reorientation, avoid sedating medications as able no signs of acute stroke/ bleed at this time, resume home Eliquis and aspirin PT/OT Continue to monitor Migraines Persistent Headache Patient with persistent headaches History of migraines On propranolol 10mg BID for preventative measures Added as needed Imitrex/sumatriptan Neurology consulted for further recs Uncontrolled hypertension Patient presenting with very high blood pressures Also with episode of significantly elevated blood pressures while working with physical therapy Will allow permissive hypertension in the setting of concerns for stroke As needed hydralazine ordered with parameters for SBP greater than 180 Patient also on propranolol with dose decreased in setting of bradycardia Consider non beta-sheeba alternative agent at baseline if persistent Continue to monitor Bradycardia patient with noted heart rates in the 50s EKG with noted sinus bradycardia echo from previous admission in April noting EF 55 to 60%, mild left ventricular hypertrophy, grade 1 diastolic dysfunction, mild mitral regurgitation, left ventricular wall motion normal Is on beta-sheeba propranolol as noted above Will decrease dose to 5 mg twice daily Continue to monitor on telemetry Possible sleep apnea Breathing pauses happens during sleep per pt's friend Montse Nocturnal pulse ox. advised to have full sleep study as OP in coordination w/ PCP office Chronic Anemia hemoglobin acutely dropped from 12.3 to-10.8 Anemia appears chronic A.m. anemia panel Continue to monitor Thrombocytopenia Platelets acutely low at 96 Continue to monitor Consider peripheral smear Other chronic medical conditions: Continue with/resume home meds as and when able. Diet: DMII, HH DVT prophylaxis: on Eliquis. Full code Dispo: PT OT ordered for further recs Admission and Anticipated Discharge Date Admission Date: May 15, 2024 Subjective patient was seen multiple times during the day Initially, resting comfortably in bed watching TV. Alert and oriented x 3 States he does not have any worsening headache but does note a history of migraines denies any changes to vision or weakness Later presented to bedside once more to speak with patient's partner Partner with many questions, questions answered and updated on patient's course Advised will likely need another 24 hours of observation with neurology follow- up inpatient Partner agreeable to plan Review of Systems Review of Systems: All systems reviewed & are unremarkable except as noted in Subjective Physical Exam Physical Exam: General: Alert, orientedx3. No acute distress Skin: No noted rashes or bruises Psych: Appropriate mood and affect Neuro: No gross deficits while laying in bed HEENT: NC/AT CV: RRR Resp: Breath sounds clear bilaterally, no increased effort of breathing Abdomen:Soft, nontender, nondistended Extremities: No edema in lower extremities bilaterally. Results & Data Results & Data Vital Signs (Past 12 Hours) Vital Signs Temp Pulse Pulse Resp BP BP Pulse Ox 05/16/24 10:39 36.5 C 55 L 17 152/85 H 96 05/16/24 09:34 198/110 H 182/91 H 05/16/24 07:20 36.4 C L 56 L 17 148/84 H 95 05/16/24 03:25 49 L 05/16/24 02:38 36.3 C L 58 L 16 154/79 H 99 Pulse Ox O2 Del Method O2 Del Method 05/16/24 10:39 Room Air 05/16/24 09:34 05/16/24 07:20 Room Air 05/16/24 03:25 94 Room Air 05/16/24 02:38 Room Air Diagnostic Findings Chest X-Ray 05/15/24 15:18 XR chest 1V portable HISTORY: 73 years-old Male neuro deficit, acute stroke suspected COMPARISON: 06/26/2023 TECHNIQUE: AP view the chest FINDINGS: Cardiomediastinal and hilar silhouettes are within normal limits. No pneumothorax, pleural effusion or airspace consolidation. Unchanged subcentimeter metallic density foreign body projects over the left chest. Bones appear grossly intact. IMPRESSION: No acute process. ACT 112: Negative or not required by law. The above report was generated using voice recognition software. It may contain grammatical, syntax or spelling errors. Electronically signed by: Horacio Ramirez M.D. 05/15/2024 3:[address] 05/15/24 15:18 CT OF THE HEAD WITHOUT CONTRAST CLINICAL HISTORY: neuro deficit, acute stroke suspected COMPARISON STUDY: Head CT and MRI of the brain May 08, 2024. TECHNIQUE: Helical axial images of the head were obtained without IV contrast. Automated exposure control was utilized for the study. A dose lowering technique was utilized adhering to the principles of ALARA. FINDINGS: No acute intracranial hemorrhage, midline shift or mass effect is present. The ventricular system is unremarkable. The basal cisterns are patent. No extra-axial collections are present. There are no findings to suggest acute dural sinus thrombosis or acute territorial infarct. Multifocal encephalomalacia consistent with old infarcts is again noted. This is similar to prior CT and MRI. The small acute right frontoparietal infarct on MRI of May 08, [address] IMPRESSION: 1. No acute intracranial findings. Multiple old infarcts. 2. The small acute right frontoparietal infarct on MRI of May 08, 2024 is not well visualized by CT. ACT 112: Negative or not required by law. Electronically signed by: Myron Barrientos M.D. 05/15/2024 3:54 PM Head CTA 05/15/24 15:18 CT angio head w con CLINICAL HISTORY: 73 years-old Male with neuro deficit, acute stroke suspected. Acute stroke like symptoms COMPARISON STUDY: Head CT of same day, brain MRI 05/08/2024 TECHNIQUE: Following the IV administration of 118 cc of Optiray, CT angiogram of the brain was performed from the skull base to the vertex. Images are reviewed in the axial, sagittal, and coronal planes. 3-D MIPS images are created and assessed. IV contrast was administered without complication. All measurements were obtained according to NASCET criteria. A dose lowering technique was utilized adhering to the principles of ALARA. FINDINGS: CT ANGIOGRAM OF THE BRAIN: The imaged bilateral internal carotid arteries are patent. The bilateral anterior and middle cerebral arteries are also patent. There is mild multifocal narrowing of the middle cerebral arteries. The vertebrobasilar system and posterior cerebral arteries are widely patent. There is no aneurysm, high-grade stenosis, or proximal branch occlusion identified. Dural sinuses appear patent. Developmentally diminutive distal left vertebral artery terminates into the PICA. The basilar artery is diminutive with areas of mild to moderate multifocal stenoses. origin of the posterior cerebral arteries. Small infarcts of the right frontal lobe seen on prior brain MRI are not well visualized. Involutional changes with chronic microvascular ischemic disease. IMPRESSION: 1. CTA of the head demonstrates no aneurysm, dissection, high-grade stenosis or arterial occlusion. 2. The small right superior frontal lobe infarcts are better seen on the brain MRI from 05/08/2024. ACT 112: Negative or not required by law. The above report was generated using voice recognition software. It may contain grammatical, syntax or spelling errors. Electronically signed by: Horacio Ramirez M.D. 05/15/2024 4:06 PM Neck CTA 05/15/24 15:18 CT angio neck with con CLINICAL HISTORY: neuro deficit, acute stroke suspected TECHNIQUE: CT angiography of the neck was performed following intravenous administration of iodinated contrast. Coronal and sagittal MIPS were obtained from the axial data set and were submitted for review. Automated dose lowering techniques and/or adjustment according to patient size were utilized for this examination. All measurements were calculated based on NASCET criteria. CT DOSE: 930.65 mGy.cm Comparison: Comparison is made to CTA neck 10 9 FINDINGS: Lungs and soft tissues are unremarkable. CTA Neck: A 3 vessel aortic arch is shown. There is no significant atherosclerotic plaque in the aortic arch or the origins of the innominate, left common carotid, and left subclavian arteries. The common carotid, external carotid, cervical segments of the internal carotid arteries, and the cervical segments of the vertebral arteries are patent without hemodynamically significant stenosis. The right vertebral artery is dominant. The left vertebral artery terminates as PICA. IMPRESSION: No occlusion, hemodynamically significant stenosis, or dissection in the major cervical arteries. Assessment of stenosis of the internal carotid arteries is based on NASCET criteria. ACT 112: Negative or not required by law. Electronically signed by: Duran Tovar M.D. 05/15/2024 4:[address] 05/16/24 04:26 CT head/brain wo con CLINICAL HISTORY: garcia eliquis Technique: Contiguous axial CT images of the head were acquired from the base of the skull to the vertex without intravenous contrast administration. Images were viewed in brain, subdural and bone windows. Automated dose lowering techniques and/or adjustment according to patient size were utilized for this exam. Comparison: Comparison is made to CT head 05/15/2024 Findings: Areas of decreased attenuation are present in the periventricular and subcortical white matter bilaterally consistent with small vessel ischemic disease. Generalized cerebral atrophy with commensurate enlargement of the ventricles, sulci, and cisterns is also present. There is no acute intracranial hemorrhage or evidence of acute territorial infarction. No shift of the midline structures, mass effect, or extra-axial abnormalities are shown. Ather osclerotic calcifications are present in the intracranial segments of the internal carotid arteries. Imaged portions of the paranasal sinuses and mastoid air cells are clear. The orbits appear normal. There are no acute fractures of the calvaria or scalp swelling. Impression: No acute intracranial hemorrhage, no evidence of acute territorial infarction or other acute intracranial disease process. ACT 112: Negative or not required by law. Electronically signed by: Duran Tovar M.D. 05/16/2024 7:57 AM
[2024-05-16] MEDS ORDERED: hydrALAZINE HCL 20 MG/ML VIAL IV PRN (13:33)
[2024-05-16] MEDS: SUMAtriptan succinate 25 MG TAB PO PRN (18:35)
--- NOTE | 2024-05-16 18:54 | Neurology Consultation ---
Date of Consultation May 16, 2024 Assessment & Plan (1) Frequent headaches: Possible migraine with cervicogenic component Plan Continue with gabapentin 600 mg twice daily at 300 mg. Consider adding Cymbalta 30 mg daily. Add magnesium 500 mg twice daily, riboflavin 400 mg daily. Okay with a small dose sumatriptan for migraine abortive treatment. Consider baclofen 5 mg twice daily for 3 days to help with any cervicogenic element Telehealth Consultation Telehealth Information Telehealth Information: I performed this visit using a real-time telehealth connection between my location and the patients location ([facility]). After connecting through interactive tele-video, patient was identified by name and date of and/or wristband check.Patient (or authorized healthcare medical claims representative) was informed that this was a telemedicine visit and it was being conducted confidentially over secure lines. My office door was closed and no one else was present in the room with me.Patient (or authorized healthcare medical claims representative) provided consent to proceed with the visit, expressed an understanding of privacy and security of the telemedicine visit, and gave permission to have a hospital medical claims representative in the room in order to assist with the visit and to conduct portions of the visit, as needed. I informed the patient (or authorized healthcare medical claims representative) that I reviewed their record and presented the opportunity for them to ask any questions regarding the visit today. The patient agreed to participate. History of Present Illness Reason for Consultation: Headaches Requesting Physician: Carli Sanders MD Attending Physician: Carli Sanders MD History of Present Illness Irma Larson is a a 73-year-old male patient with PMH of migraine headaches, history of a recent right MCA syndrome with multiple presentations for headaches was recently seen by neurology on June 09 where MRI showed questionable slight extension of his right MCA territory of cortical infarct. The patient was admitted yesterday with increased increased lethargy, thought to be related to gabapentin.. The patient continued to report significant headaches so neurology was consulted. He has been taking gabapentin 600 mg twice daily in addition to 300 mg at noon. Today he reported some improvement of his headaches that got better towards the afternoon. He reports associated neck stiffness. The headaches have not changed in character remain bifrontal frontal, not associated with any blurry vision or slurred speech or any new numbness. Allergies Allergy/AdvReac Type Severity Reaction Status Date / Time No Known Allergies Allergy Verified 05/15/24 15:38 Home Medications Medication Instructions Recorded Confirmed Type apixaban 5 mg tablet (Eliquis) 5 mg PO BID 30 days #60 tabs 02/02/21 05/15/24 Rx metformin 1,000 mg tablet 1,000 mg PO BIDM 02/12/21 05/15/24 History aspirin 81 mg tablet,delayed 81 mg PO QAM 03/29/21 05/15/24 History release (Bong Low Dose Aspirin) atorvastatin 40 mg tablet (Lipitor) 40 mg PO QAM 03/29/21 05/15/24 History gabapentin 300 mg capsule See Rx Instructions .Route .COMPLEX 03/29/21 05/15/24 History (Neurontin) propranolol 10 mg tablet 10 mg PO BID 07/28/22 05/15/24 History tamsulosin 0.4 mg capsule 0.4 mg PO QAM 08/23/22 05/15/24 History finasteride 5 mg tablet 5 mg PO QAM 05/08/24 05/15/24 History docusate sodium 100 mg capsule 100 mg PO Q OTHER DAY 05/15/24 05/15/24 History (Stool Softener) Patient History Medical History Knee pain, right MAGY (acute kidney injury) Weakness MAGY (acute kidney injury) Elevated troponin Anemia Kidney stones Stroke 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 ischemic stroke, residual mild weakness and short- term memory impairment Pulmonary embolism 1993- Eliquis Hydronephrosis with urinary obstruction due to ureteral calculus Hypertension Surgical History History of back surgery No hardware History of cystoscopy Cystoscopy, left retropyelogram, Left ureteral stent placement (03/30/21): LMA#4 at [facility] H/O colonoscopy History of tympanoplasty of right ear Status post appendectomy Family History Uncle Family history of diabetes mellitus Other Heart disease Social History Smoking Status: Former smoker Tobacco Type: Cigarettes Second Hand Exposure: No; Do You Dip or Chew Tobacco: No; Hx Alcohol Use: No Hx Substance Use: No Preferred Language: Yi Communication Ability: Effective Manager Industrial Required: No Beliefs That Will Affect Care: None marital status: / Current Living Situation: Other Current Living Situation Comment: lives at home with friends current occupation: NOT WORKING How many Children do You have: 0 Other Information That Helps Us Care for You: No Feels Safe at Home: Yes Safety Concerns: Feels Safe At This Time Assistive Devices: Cane and Walker Review of Systems Constitutional: Patient denies weight loss, fever, chills, and night sweats Eyes: Patient denies change in vision, tearing, pain, and redness ENT: Patient denies pain, bleeding, rhinorrhea, and dysphagia Cardiovascular: Patient denies chest pain, palpitation, dyspnea at rest, and dyspnea with exertion Respiratory: Patient denies shortness of breath, cough, wheezing, and productive cough GI: Patient denies reflux, pain, constipation, and diarrhea Skin: Patient denies rash, dryness, and itching Allergies/Immune System: Patient denies rhinorrhea, seasonal allergies, reaction to current MEDS, and joint swelling Endocrine: Patient denies weight loss, weight gain, temperature intolerance, and excessive thirst Neurological: All negative unless mentioned in the HPI Physical Exam General Constitutional: Appearance normally developed Head and face: normocephalic and atraumatic Eyes: no ptosis, no anisocoria, and no dysconjugate gaze Respiratory: normal effort Cardiovascular: regular rhythm and regular rate Abdomen: non distended Skin: no rashes, lesions, or ulcers noted Psychiatric: normal judgement and insight, normal mood, and normal affect NEUROLOGIC EXAMINATION: Mental Status:alert, oriented to time, place, person, normal recent memory, normal remote memory, normal attention span, normal concentration, normal language and normal fund of knowledge Cranial Nerves: CN 2 - no visual defect on confrontation and pupils round, equal, reactive to light CN 3, 4, 6 - extra-ocular movements intact and no nystagmus CN 5 - facial sensation intact CN 7 - no facial asymmetry CN 8 - intact hearing CN 9, 10 - palate symmetric, normal gag CN 11 - good shoulder shrug CN 12 - tongue midline MOTOR: Strength was at least antigravity throughout, Pronator drift was absent and There were no abnormal movements SENSATION: intact and symmetric to pinprick, light touch, vibration and joint position GAIT: stable, no ataxia and can perform tandem walking COORDINATION: no ataxia with finger to nose testing and heel to summers testing REFLEXES: cannot assess over telemedicine Results & Data Vital Signs (Past 12 Hours) Vital Signs Temp Pulse Pulse Resp BP BP Pulse Ox 05/16/24 18:39 36.5 C 60 19 171/87 H 97 05/16/24 15:51 56 L 05/16/24 14:48 36.5 C 56 L 16 141/89 H 96 05/16/24 10:39 36.5 C 55 L 17 152/85 H 96 05/16/24 09:34 198/110 H 182/91 H 05/16/24 07:20 36.4 C L 56 L 17 148/84 H 95 05/16/24 07:00 53 L O2 Del Method 05/16/24 18:39 Room Air 05/16/24 15:51 05/16/24 14:48 Room Air 05/16/24 10:39 Room Air 05/16/24 09:34 05/16/24 07:20 Room Air 05/16/24 07:00 Laboratory Results Laboratory Results - last 24 hr 05/15/24 05/16/24 05/16/24 22:11 03:11 07:19 WBC 5.12 RBC 3.51 L Hgb 10.8 L Hct 31.0 L MCV 88.3 MCH 30.8 MCHC 34.8 RDW Std Deviation 49.1 H RDW Coeff of Aranza 15.3 H Plt Count 96 L MPV 9.9 Sodium 137 Potassium 4.3 Chloride 106 Carbon Dioxide 25 Anion Gap 6 BUN 34 H Creatinine 1.28 Est Cr Clr Drug Dosing 53.6 eGFR 58.37 BUN/Creatinine Ratio 26.6 H Glucose 135 H POC Glucose 176 H 158 H Calcium 9.3 Magnesium 2.2 TSH 4.309 05/16/24 05/16/24 11:04 16:15 WBC RBC Hgb Hct MCV MCH MCHC RDW Std Deviation RDW Coeff of Aranza Plt Count MPV Sodium Potassium Chloride Carbon Dioxide Anion Gap BUN Creatinine Est Cr Clr Drug Dosing eGFR BUN/Creatinine Ratio Glucose POC Glucose 192 H 91 Calcium Magnesium TSH Diagnostic Findings Head CT 05/16/24 04:26 CT head/brain wo con CLINICAL HISTORY: garcia eliquis Technique: Contiguous axial CT images of the head were acquired from the base of the skull to the vertex without intravenous contrast administration. Images were viewed in brain, subdural and bone windows. Automated dose lowering techniques and/or adjustment according to patient size were utilized for this exam. Comparison: Comparison is made to CT head 05/15/2024 Findings: Areas of decreased attenuation are present in the periventricular and subcortical white matter bilaterally consistent with small vessel ischemic di sease. Generalized cerebral atrophy with commensurate enlargement of the ventricles, sulci, and cisterns is also present. There is no acute intracranial hemorrhage or evidence of acute territorial infarction. No shift of the midline structures, mass effect, or extra-axial abnormalities are shown. Atherosclerotic calcifications are present in the intracranial segments of the internal carotid arteries. Imaged portions of the paranasal sinuses and mastoid air cells are clear. The orbits appear normal. There are no acute fractures of the calvaria or scalp swelling. Impression: No acute intracranial hemorrhage, no evidence of acute territorial infarction or other acute intracranial disease process. ACT 112: Negative or not required by law. Electronically signed by: Duran Tovar M.D. 05/16/2024 7:57 AM Medications Administered Home Medications Medication Instructions Recorded Confirmed Last Taken apixaban 5 mg tablet (Eliquis) 5 mg PO BID 30 days #60 tabs 02/02/21 05/15/24 06/26/23 09:00 metformin 1,000 mg tablet 1,000 mg PO BIDM 02/12/21 05/15/24 06/26/23 09:00 aspirin 81 mg tablet,delayed 81 mg PO QAM 03/29/21 05/15/24 06/26/23 09:00 release (Bong Low Dose Aspirin) atorvastatin 40 mg tablet (Lipitor) 40 mg PO QAM 03/29/21 05/15/24 08/02/22 gabapentin 300 mg capsule See Rx Instructions .Route .COMPLEX 03/29/21 05/15/24 06/26/23 09:00 (Neurontin) propranolol 10 mg tablet 10 mg PO BID 07/28/22 05/15/24 06/26/23 09:00 tamsulosin 0.4 mg capsule 0.4 mg PO QAM 08/23/22 05/15/24 06/26/23 09:00 finasteride 5 mg tablet 5 mg PO QAM 05/08/24 05/15/24 Unknown docusate sodium 100 mg capsule 100 mg PO Q OTHER DAY 05/15/24 05/15/24 Unknown (Stool Softener) Active Medications Generic Name Dose Route Start Last Admin Trade Name Asadq PRN Reason Stop Dose Admin Apixaban 5 mg 05/15/24 21:39 05/15/24 22:06 Apixaban 5 Mg Tablet PO 06/14/24 21:38 5 mg BID WILMER Administration Atorvastatin Calcium 40 mg 05/16/24 09:00 05/16/24 09:07 Atorvastatin 40 Mg Tab PO 06/15/24 08:59 40 mg QAM WILMER Administration Docusate Sodium 100 mg 05/16/24 09:00 05/16/24 09:12 Docusate Sodium 100 Mg Cap PO 06/15/24 08:59 100 mg Q2D WILMER Administration Finasteride 5 mg 05/16/24 09:00 05/16/24 09:07 Finasteride 5 Mg Tab PO 06/15/24 08:59 5 mg QAM WILMER Administration Gabapentin 300 mg 05/16/24 12:00 05/16/24 12:28 Gabapentin 300 Mg Cap PO 06/15/24 11:59 300 mg 1200 WIMLER Administration Gabapentin 600 mg 05/15/24 21:45 05/16/24 09:08 Gabapentin 600 Mg Tab PO 06/14/24 21:44 600 mg BID WILMER Administration Insulin Aspart 0 units 05/15/24 21:39 05/16/24 18:17 Insulin Aspart Per Unit Charge SC 06/14/24 21:38 5 units ACHS WILMER Administration Sumatriptan Succinate 25 mg 05/16/24 18:07 05/16/24 18:35 Sumatriptan Succinate 25 Mg Tab PO 06/15/24 18:06 25 mg TID PRN Administration Migraine Headache Tamsulosin HCl 0.4 mg 05/16/24 09:00 05/16/24 09:07 Tamsulosin Hcl 0.4 Mg Cap PO 06/15/24 08:59 0.4 mg QAM WILMER Administration
[2024-05-16] MEDS: PROPRANOLOL HCL 10 MG TAB PO SCH (19:57)
[2024-05-17 06:42] LABS: Basophils # (auto) 0.06 K/uL (0.00-0.20); Basophils % (auto) 1.1 %; Eosinophils # (auto) 0.14 K/uL (0.00-0.50); Eosinophils % (auto) 2.6 %; Hematocrit (blood only) 34.1 % (42.0-52.0); Hemoglobin 11.4 g/dl (14.0-18.0); Immature Granulocytes # (auto) 0.06 K/uL (0.01-0.20); Immature Granulocytes % (auto) 1.1 %; Lymphocytes % (auto) 24.3 %; Mean Corpuscular Hgb Conc 33.4 g/dL (32.0-36.0); Mean Corpuscular Volume 89.7 fL (80.0-100.0); Monocytes # (auto) 0.42 K/uL (0.11-0.59); Monocytes % (auto) 7.8 %; Neutrophils # (auto) 3.38 K/uL (1.40-6.50); Neutrophils % (auto) 63.1 %; Platelet Count 94 K/uL (130-400); RDW Coefficient of Variation 15.3 % (11.5-14.5); White Blood Count 5.36 K/ul (4.8-10.8)
[2024-05-17 07:07] LABS: Albumin Globulin Ratio 1.7 (0.9-2); BUN Creatinine Ratio 22.4 (10-20); Bilirubin,Total 0.5 mg/dl (0.2-1.0); Calcium 8.9 mg/dl (8.6-10.3); Creatinine Clr Calc Pharmacy 48.1 ml/min; Globulin 2.4 gm/dl (2.5-4.0); Magnesium 1.8 mg/dl (1.7-2.4); Phosphorus 5.1 mg/dl (2.5-4.9); Potassium 4.2 mmol/L (3.5-5.1); Total Protein 6.4 gm/dl (6.0-8.3)
[2024-05-17 07:26] LABS: Ferritin 23.2 ng/ml (8-388)
[2024-05-17 07:32] LABS: Folate (Folic Acid),Ser orPlas 20.08 ng/ml (>5.38)
[2024-05-17] MEDS: ASPIRIN 81 MG ECTAB PO SCH (08:40)
[2024-05-17] MEDS: SODIUM CHLORIDE 0.9% 1,000 ML IV SCH (10:52)
[2024-05-17] MEDS: DULoxetine HCL 30 MG CAP PO SCH (10:53)
[2024-05-17] MEDS: VITAMIN B COMPLEX TAB PO SCH (10:53)
[2024-05-17] MEDS: MAGNESIUM OXIDE 400 MG TAB PO SCH (10:53)
--- NOTE | 2024-05-17 12:16 | Hospitalist Progress Note ---
Date of Service May 17, 2024 Assessment & Plan (1) Lethargy: Plan Pt is a 73-year-old male with PMHx significant for strokes [December 2020, April 2021, April 2024], DVT/PE on Eliquis, T2DM, HLD, thrombocytopenia, BPH who presented to the ED at referral from PCP office for noted voice changes/off- balance/weakness and concern of stroke. Stroke-like symptoms Acute metabolic/toxic Encephalopathy patient with recent stroke diagnosed about a week ago Repeat head CT, head CTA, neck CTA and repeat head CT overnight once more all without acute findings Patient presenting with lethargy, concern for too much gabapentin use Patient alert and oriented x 3 on exam on 05/16/2024, laying in bed comfortably watching TV Consider MRI with any worsening symptoms Delirium precautions. Frequent reorientation, avoid sedating medications as able no signs of acute stroke/ bleed at this time, resume home Eliquis and aspirin PT/OT Continue to monitor Migraines Persistent Headache Patient with persistent headaches History of migraines On propranolol 10mg BID for preventative measures Added as needed Imitrex/sumatriptan Neurology consulted for further recs. recommended or stated the following: "Continue with gabapentin 600 mg twice daily at 300 mg. Consider adding Cymbalta 30 mg daily. Add magnesium 500 mg twice daily, riboflavin 400 mg daily. Okay with a small dose sumatriptan for migraine abortive treatment. Consider baclofen 5 mg twice daily for 3 days to help with any cervicogenic element" Cymbalta was added to the regimen as well as magnesium and vitamin B supplements as riboflavin is not on formulary Continue to monitor symptoms Acute kidney injury Creatinine acutely elevated to 1.43 IVF for 1 bag in setting of fluid shortage Avoid nephrotoxic meds as able continue to monitor Uncontrolled hypertension Patient presenting with very high blood pressures Also with episode of significantly elevated blood pressures while working with physical therapy Will allow permissive hypertension in the setting of concerns for stroke As needed hydralazine ordered with parameters for SBP greater than 180 Patient also on propranolol with dose decreased in setting of bradycardia Consider non beta-sheeba alternative agent at baseline if persistent Continue to monitor Bradycardia patient with noted heart rates in the 50s EKG with noted sinus bradycardia echo from previous admission in April noting EF 55 to 60%, mild left ventricular hypertrophy, grade 1 diastolic dysfunction, mild mitral regurgitation, left ventricular wall motion normal Is on beta-sheeba propranolol as noted above Will decrease dose to 5 mg twice daily Continue to monitor on telemetry improving Possible sleep apnea Breathing pauses happens during sleep per pt's friend Montse Nocturnal pulse ox. advised to have full sleep study as OP in coordination w/ PCP office Chronic Anemia hemoglobin acutely dropped from 12.3 to-10.8 Anemia appears chronic Anemia panel normal consider starting on oral iron supplement Continue to monitor Thrombocytopenia Platelets acutely low at 96 Continue to monitor AM peripheral smear Other chronic medical conditions: Continue with/resume home meds as and when able. Diet: DMII, HH DVT prophylaxis: on Eliquis. Full code Dispo: PT OT ordered for further recs Admission and Anticipated Discharge Date Admission Date: May 15, 2024 Subjective patient was seen in the morning laying in bed watching TV Alert and oriented x 3 States still having the headache however headache is in the neck and spreads to the top of the head and across the forehead Otherwise denies acute concerns Partner Montse called and updated at about 5 PM Review of Systems Review of Systems: All systems reviewed & are unremarkable except as noted in Subjective Physical Exam Physical Exam: General: Alert, orientedx3. No acute distress Skin: No noted rashes or bruises Psych: Appropriate mood and affect Neuro: No gross deficits while laying in bed HEENT: NC/AT CV: RRR Resp: Breath sounds clear bilaterally, no increased effort of breathing Abdomen:Soft, nontender, nondistended Extremities: No edema in lower extremities bilaterally. Results & Data Results & Data Vital Signs (Past 12 Hours) Vital Signs Temp Pulse Resp BP Pulse Ox O2 Del Method 05/17/24 10:40 36.5 C 65 20 143/70 H 94 Room Air 05/17/24 07:00 36.6 C 65 18 146/85 H 93 Room Air 05/17/24 02:31 36.5 C 68 17 120/75 94 Room Air
[2024-05-17] MEDS: oxyCODONE HCL IR 5 MG TAB (IMMEDIATE RELEASE) PO PRN (12:23)
--- NOTE | 2024-05-17 23:40 | Communication Note ---
Date of Service: May 17, 2024 Made aware by RN of uncontrolled blood pressure. SBP 140s to 160s since a.m. the last 24 hours. Heart rate 60s to 70s. Patient asymptomatic. AP Hypertensive urgency Add amlodipine to home beta-sheeba Rx Will relay to AM provider.
[2024-05-18] MEDS: amLODIPine BESYLATE 5 MG TAB PO SCH (00:01)
[2024-05-18 06:11] LABS: Basophils # (auto) 0.04 K/uL (0.00-0.20); Basophils % (auto) 0.7 %; Eosinophils # (auto) 0.18 K/uL (0.00-0.50); Eosinophils % (auto) 3.4 %; Hematocrit (blood only) 31.6 % (42.0-52.0); Hemoglobin 10.9 g/dl (14.0-18.0); Immature Granulocytes # (auto) 0.07 K/uL (0.01-0.20); Immature Granulocytes % (auto) 1.3 %; Lymphocytes # (auto) 1.62 K/uL (1.20-3.40); Lymphocytes % (auto) 30.2 %; Mean Corpuscular Hemoglobin 30.4 pg (25.0-34.0); Mean Corpuscular Hgb Conc 34.5 g/dL (32.0-36.0); Mean Corpuscular Volume 88.3 fL (80.0-100.0); Mean Platelet Volume 9.8 fL (9.4-12.4); Monocytes # (auto) 0.49 K/uL (0.11-0.59); Monocytes % (auto) 9.1 %; Neutrophils # (auto) 2.97 K/uL (1.40-6.50); Neutrophils % (auto) 55.3 %; Platelet Count 85 K/uL (130-400); RDW Coefficient of Variation 15.1 % (11.5-14.5); RDW Standard Deviation 48.4 fL (36.4-46.3); Red Blood Count 3.58 M/uL (4.70-6.10); White Blood Count 5.37 K/ul (4.8-10.8)
[2024-05-18 06:33] LABS: Albumin Globulin Ratio 1.8 (0.9-2); Bilirubin,Total 0.5 mg/dl (0.2-1.0); Calcium 8.7 mg/dl (8.6-10.3); Creatinine Clr Calc Pharmacy 49.1 ml/min; Globulin 2.2 gm/dl (2.5-4.0); Phosphorus 4.1 mg/dl (2.5-4.9); Potassium 4.5 mmol/L (3.5-5.1); Total Protein 6.2 gm/dl (6.0-8.3)
[2024-05-18 06:35] LABS: Polychromasia 1+
[2024-05-18] MEDS: ACETAMINOPHEN 325 MG TAB PO PRN (08:41)
[2024-05-18] MEDS: POLYETHYLENE (MIRALAX) 17 GM PACK PO PRN (08:41)
--- NOTE | 2024-05-18 10:42 | Hospitalist Progress Note ---
Date of Service May 18, 2024 Assessment & Plan (1) Lethargy: Plan Pt is a 73-year-old male with PMHx significant for strokes [December 2020, April 2021, April 2024], DVT/PE on Eliquis, T2DM, HLD, thrombocytopenia, BPH who presented to the ED at referral from PCP office for noted voice changes/off- balance/weakness and concern of stroke. Stroke-like symptoms Acute metabolic/toxic Encephalopathy patient with recent stroke diagnosed about a week ago Repeat head CT, head CTA, neck CTA and repeat head CT overnight once more all without acute findings Patient presenting with lethargy, concern for too much gabapentin use Patient alert and oriented x 3 on exam on 05/16/2024, laying in bed comfortably watching TV Consider MRI with any worsening symptoms Delirium precautions. Frequent reorientation, avoid sedating medications as able no signs of acute stroke/ bleed at this time, resume home Eliquis and aspirin PT/OT Continue to monitor Thrombocytopenia Platelets acutely low, have been downtrending, currently at 85K Peripheral smear pending Case discussed with patient's neurologist Dr. Bipin Stallings on 05/18/2024- recommending discontinuing home aspirin at this time and continuing with Eliquis only at this time. Continue to monitor with a.m. labs Migraines Persistent Headache Patient with persistent headaches History of migraines Was on propranolol 10mg BID for preventative measures, dose decreased to 5mg BID in setting of bradycardia Added as needed Imitrex/sumatriptan Neurology consulted for further recs. recommended or stated the following: "Continue with gabapentin 600 mg twice daily at 300 mg. Consider adding Cymbalta 30 mg daily. Add magnesium 500 mg twice daily, riboflavin 400 mg daily. Okay with a small dose sumatriptan for migraine abortive treatment. Consider baclofen 5 mg twice daily for 3 days to help with any cervicogenic element" Cymbalta was added to the regimen as well as magnesium and vitamin B suppleme nts as riboflavin is not on formulary Continue to monitor symptoms Acute kidney injury Creatinine acutely elevated to 1.43 IVF for 1 bag in setting of fluid shortage Avoid nephrotoxic meds as able continue to monitor Improved Uncontrolled hypertension Patient presenting with very high blood pressures Also with episode of significantly elevated blood pressures while working with physical therapy Initially allowed permissive hypertension in the setting of concerns for stroke As needed hydralazine was ordered with parameters for SBP greater than 180 Patient also on propranolol with dose decreased in setting of bradycardia Amlodipine Continue to monitor Bradycardia patient with noted heart rates in the 50s EKG with noted sinus bradycardia echo from previous admission in April noting EF 55 to 60%, mild left ventricular hypertrophy, grade 1 diastolic dysfunction, mild mitral regurgitation, left ventricular wall motion normal Is on beta-sheeba propranolol as noted above Will decrease dose to 5 mg twice daily Continue to monitor on telemetry improving Possible sleep apnea Breathing pauses happens during sleep per pt's friend Montse Nocturnal pulse ox. advised to have full sleep study as OP in coordination w/ PCP office Chronic Anemia hemoglobin acutely dropped from 12.3 to-10.8 Anemia appears chronic Anemia panel normal consider starting on oral iron supplement Continue to monitor Other chronic medical conditions: Continue with/resume home meds as and when able. Diet: DMII, HH DVT prophylaxis: on Eliquis. Full code Dispo: PT OT ordered for further recs Admission and Anticipated Discharge Date Admission Date: May 17, 2024 Subjective patient was seen in the morning sitting up at bedside, fully dressed about to go for a walk Alert and oriented x 3 had just finished taking his medications, headache improving Otherwise denies acute concerns patient's case was discussed with his neurologist given the progressive thrombocytopenia noted she advised holding the aspirin and continuing with the Eliquis Patient's friends Montse and Roby were contacted and updated. Advised that would require another night to continue to monitor the platelet level They both verbalized understanding and agreement Review of Systems Review of Systems: All systems reviewed & are unremarkable except as noted in Subjective Physical Exam Physical Exam: General: Alert, orientedx3. No acute distress Skin: No noted rashes or bruises Psych: Appropriate mood and affect Neuro: No gross deficits while laying in bed HEENT: NC/AT CV: RRR Resp: Breath sounds clear bilaterally, no increased effort of breathing Abdomen:Soft, nontender, nondistended Extremities: No edema in lower extremities bilaterally. Results & Data Results & Data Vital Signs (Past 12 Hours) Vital Signs Temp Pulse Resp BP Pulse Ox O2 Del Method 05/18/24 07:58 36.4 C L 62 16 148/83 H 98 Room Air 05/18/24 02:02 63 160/91 H 05/18/24 00:45 177/110 H 05/17/24 23:30 169/110 H
[2024-05-18 19:32] VITALS: RESP 18
[2024-05-19 07:18] VITALS: BP 158/73; PULSE 60; TEMP 97.9; O2SAT 98
[2024-05-19 07:56] LABS: Basophils # (auto) 0.06 K/uL (0.00-0.20); Basophils % (auto) 1.1 %; Eosinophils # (auto) 0.17 K/uL (0.00-0.50); Eosinophils % (auto) 3.2 %; Hematocrit (blood only) 32.5 % (42.0-52.0); Hemoglobin 11.3 g/dl (14.0-18.0); Immature Granulocytes # (auto) 0.11 K/uL (0.01-0.20); Immature Granulocytes % (auto) 2.1 %; Lymphocytes % (auto) 26.5 %; Mean Corpuscular Hemoglobin 30.5 pg (25.0-34.0); Mean Corpuscular Hgb Conc 34.8 g/dL (32.0-36.0); Mean Corpuscular Volume 87.8 fL (80.0-100.0); Mean Platelet Volume 10.6 fL (9.4-12.4); Monocytes # (auto) 0.54 K/uL (0.11-0.59); Monocytes % (auto) 10.2 %; Neutrophils % (auto) 56.9 %; Platelet Count 93 K/uL (130-400); RDW Coefficient of Variation 15.1 % (11.5-14.5); RDW Standard Deviation 48.3 fL (36.4-46.3); White Blood Count 5.28 K/ul (4.8-10.8)
[2024-05-19 08:17] LABS: Albumin Globulin Ratio 1.9 (0.9-2); Albumin Level 4.4 gm/dl (3.4-5.0); BUN Creatinine Ratio 22.5 (10-20); Bilirubin,Total 0.6 mg/dl (0.2-1.0); Calcium 9.3 mg/dl (8.6-10.3); Creatinine Clr Calc Pharmacy 49.5 ml/min; Globulin 2.3 gm/dl (2.5-4.0); Magnesium 2.2 mg/dl (1.7-2.4); Phosphorus 4.4 mg/dl (2.5-4.9); Potassium 4.8 mmol/L (3.5-5.1); Total Protein 6.7 gm/dl (6.0-8.3)
--- NOTE | 2024-05-19 10:31 | Discharge Summary ---
Discharge Summary Date of Service May 19, 2024 Principal Dx & Hospital Course #1 = Principal Diagnosis (1) Lethargy: Plan Pt is a 73-year-old male with PMHx significant for strokes [December 2020, April 2021, April 2024], DVT/PE on Eliquis, T2DM, HLD, thrombocytopenia, BPH who presented to the ED at referral from PCP office for noted generalized weakness and concern of stroke. Stroke-like symptoms Acute metabolic/toxic Encephalopathy patient with recent stroke diagnosed about a week ago Repeat head CT, head CTA, neck CTA and repeat head CT overnight once more all without acute findings Patient presenting with lethargy, concern for too much gabapentin use Patient alert and oriented x 3 on exam since admission Consider MRI with any worsening symptoms Delirium precautions. Frequent reorientation, avoid sedating medications as able No signs of acute stroke/ bleed at this time, resumed home Eliquis and aspirin However pt with noted worsening thrombocytopenia (see below) and per recs of [facility]derjit rologist Dr Bipin Stallings, advised to discontinue aspirin and continue with Eliquis only. PT/OT- recommending return home Pt currently back to baseline Thrombocytopenia Platelets acutely low, have been downtrended to low of 85K Peripheral smear ordered: "No overt morphologic abnormalities, including changes of a myelodysplastic syndrome or hemolytic anemia, are seen. No organisms are identified.The reviewed findings are consistent with a non-specific normocytic anemia and thrombocytopenia. If clinically indicated, an immature platelet fraction (IPF) which is available at [facility] may be useful to evaluate as to whether the thrombocytopenia is due to peripheral destruction/sequestration or lack of production in the bone marrow." Case discussed with patient's neurologist Dr. Bipin Stallings on 05/18/2024- recommending discontinuing home aspirin at this time and continuing with Eliquis only at this time for anticoagulation. Platelets uptrending after discontinuation of aspirin, up to 93K on day of discharge. Close PCP followup with repeat CBC at followup to ensure platelet level continues to improve. Migraines Persistent Headache Patient with persistent headaches History of migraines Was on propranolol 10mg BID for preventative measures, dose decreased to 5mg BID in setting of bradycardia Added as needed Imitrex/sumatriptan Neurology consulted for further recs. recommended or stated the following: "Continue with gabapentin 600 mg twice daily at 300 mg. Consider adding Cymbalta 30 mg daily. Add magnesium 500 mg twice daily, riboflavin 400 mg daily. Okay with a small dose sumatriptan for migraine abortive treatment. Consider baclofen 5 mg twice daily for 3 days to help with any cervicogenic element" Cymbalta was added to the regimen as well as magnesium and vitamin B supplements as riboflavin is not on formulary. patient was discharged home with Cymbalta 30 mg to be taken in the morning as well as riboflavin and magnesium. As needed sumatriptan to help with migraines. Close neurology follow-up recommended after discharge. Acute kidney injury Creatinine acutely elevated to 1.43 during hospitalization IVF for 1 bag in setting of fluid shortage Avoid nephrotoxic meds as able Improved, Cr 1.38 on discharge Uncontrolled hypertension Patient presenting with very high blood pressures Also with episode of significantly elevated blood pressures while working with physical therapy Initially allowed permissive hypertension in the setting of concerns for stroke As needed hydralazine was ordered with parameters for SBP greater than 180 Patient also on propranolol with dose decreased to 5mg BID in setting of bradycardia Amlodipine also added for further control Continue to monitor after discharge, pcp followup Bradycardia patient with noted heart rates in the 50s EKG with noted sinus bradycardia echo from previous admission in April noting EF 55 to 60%, mild left ventricular hypertrophy, grade 1 diastolic dysfunction, mild mitral regurgitation, left ventricular wall motion normal Is on beta-sheeba propranolol as noted above Dose decreased to 5 mg twice daily Bradycardia resolved on discharge Possible sleep apnea Breathing pauses happens during sleep per pt's friend Montse Nocturnal pulse ox. advised to have full sleep study as OP in coordination w/ PCP office Chronic Anemia hemoglobin acutely dropped from 12.3 to-10.8 Anemia appears chronic Anemia panel normal consider starting on oral iron supplement Hgb 11 on discharge Close pcp followup Other chronic medical conditions: Continue with/resume home meds as and when able. Notes For Next Care Provider CBC in 5 days, ensure platelets remain on the uptrend Per Neurology: ""Continue with gabapentin 600 mg twice daily at 300 mg. Consider adding Cymbalta 30 mg daily. (Cymbalta was added to pt's regimen) Add magnesium 500 mg twice daily, riboflavin 400 mg daily. Okay with a small dose sumatriptan for migraine abortive treatment. Consider baclofen 5 mg twice daily for 3 days to help with any cervicogenic element" Pt will need sleep study Medication Changes From Visit PER NEUROLOGY, DISCONTINUE aspirin but continue with Eliquis 5mg BID Start: amlodipine 2.5mg daily magnesium 500mg BID riboflavin 400mg daily Cymbalta 30mg daily Sumatriptan 25mg PRN for migraines Propranolol dose decreased to 5mg BID Admission HPI Per Admitting Provider 73-year-old male with PMH of strokes [December 2020, April 2021, April 2024], DVT/PE on Eliquis, T2DM, HLD, thrombocytopenia, BPH presented to the ED at referral from PCP office for noted voice changes/off-balance/weak and concern of stroke. Patient's friend and healthcare TOMMY Willard was at bedside who helped with history taking. Patient woke up to exam, no facial deviation or slurring of speech noted. No focal weakness noted on exam. Patient states that generally he takes gabapentin at 7 AM and then at noon and then at evening, he took his gabapentin at 9 AM today followed by another dose at 12 noon, he drove himself to PCP office. Per patient's friend, he was in his usual state of health until today morning. Patient reports eating okay, denies acute changes in bowel or bladder habit. Patient denies fever/cough/chest pain/palpitations/sore throat/belly pain. Medications reviewed with the patient and her friend at bedside in detail. Plan of care discussed with the patient and her friend at bedside in detail, they voiced understanding. Full code Admission Exam Per Admitting Provider GENERAL: sleeping /woke up to exam and oriented x3. NAD, on RA. HEENT: No pallor, no icterus. Pupils equal, round and reactive to light. Oral mucosa moist. NECK: No JVD, no neck masses. HEART: S1 and S2 heard. Regular rate and rhythm. No murmur, no gallop. RESPIRATORY SYSTEM: Normal AP diameter. No accessory muscle use. No wheezing, no crackles. ABDOMEN: Soft, bowel sounds present, nontender, no distention. CENTRAL NERVOUS SYSTEM: No facial droop. Speech is clear. Obeys simple commands. Moves extremities. EXTREMITIES: No edema, no erythema seen. Discharge Exam General: Alert, orientedx3. No acute distress Skin: No noted rashes or bruises Psych: Appropriate mood and affect Neuro: No gross deficits while laying in bed HEENT: NC/AT CV: RRR Resp: Breath sounds clear bilaterally, no increased effort of breathing Abdomen:Soft, nontender, nondistended Extremities: No edema in lower extremities bilaterally. Updated Medication List Medication Instructions Recorded Confirmed Type apixaban 5 mg tablet (Eliquis) 5 mg PO BID 30 days #60 tabs 02/02/21 05/15/24 Rx metformin 1,000 mg tablet 1,000 mg PO BIDM 02/12/21 05/15/24 History atorvastatin 40 mg tablet (Lipitor) 40 mg PO QAM 03/29/21 05/15/24 History gabapentin 300 mg capsule See Rx Instructions .Route .COMPLEX 03/29/21 05/15/24 History (Neurontin) tamsulosin 0.4 mg capsule 0.4 mg PO QAM 08/23/22 05/15/24 History finasteride 5 mg tablet 5 mg PO QAM 05/08/24 05/15/24 History docusate sodium 100 mg capsule 100 mg PO Q OTHER DAY 05/15/24 05/15/24 History (Stool Softener) amlodipine 2.5 mg tablet 2.5 mg PO DAILY #30 tabs 05/19/24 Rx duloxetine 30 mg capsule,delayed 30 mg PO QAM #30 caps 05/19/24 Rx release magnesium 250 mg tablet 500 mg (2 x 250 mg) PO BID #120 05/19/24 Rx tabs propranolol 10 mg tablet 5 mg (1/2 x 10 mg) PO BID #15 tabs 05/19/24 Rx riboflavin (vitamin B2) 400 mg 400 mg PO DAILY #30 tabs 05/19/24 Rx tablet sumatriptan succinate 25 mg tablet See Rx Instructions PO .COMPLEX 05/19/24 Rx #20 tabs Hospital Stay Data Consultations 05/15/24 16:48 ED Decision to Admit Stat 05/16/24 18:06 Consult Neurology Routine Diagnostic Imagining Performed 05/15/24 15:18 CT angio head w con Stat CT angio neck with con Stat CT head/brain wo con Stat 05/16/24 04:26 CT head/brain wo con Stat Chest X-Ray 05/15/24 15:18 XR chest 1V portable HISTORY: 73 years-old Male neuro deficit, acute stroke suspected COMPARISON: 06/26/2023 TECHNIQUE: AP view the chest FINDINGS: Cardiomediastinal and hilar silhouettes are within normal limits. No pneumothorax, pleural effusion or airspace consolidation. Unchanged subcentimeter metallic density foreign body projects over the left chest. Bones appear grossly intact. IMPRESSION: No acute process. ACT 112: Negative or not required by law. The above report was generated using voice recognition software. It may contain grammatical, syntax or spelling errors. Electronically signed by: Horacio Ramirez M.D. 05/15/2024 3:[address] 05/15/24 15:18 CT OF THE HEAD WITHOUT CONTRAST CLINICAL HISTORY: neuro deficit, acute stroke suspected COMPARISON STUDY: Head CT and MRI of the brain May 08, 2024. TECHNIQUE: Helical axial images of the head were obtained without IV contrast. Automated exposure control was utilized for the study. A dose lowering technique was utilized adhering to the principles of ALARA. FINDINGS: No acute intracranial hemorrhage, midline shift or mass effect is present. The ventricular system is unremarkable. The basal cisterns are patent. No extra-axial collections are present. There are no findings to suggest acute dural sinus thrombosis or acute territorial infarct. Multifocal encephalomalacia consistent with old infarcts is again noted. This is similar to prior CT and MRI. The small acute right frontoparietal infarct on MRI of May 08, [address] IMPRESSION: 1. No acute intracranial findings. Multiple old infarcts. 2. The small acute right frontoparietal infarct on MRI of May 08, 2024 is not well visualized by CT. ACT 112: Negative or not required by law. Electronically signed by: Myron Barrientos M.D. 05/15/2024 3:54 PM Head CTA 05/15/24 15:18 CT angio head w con CLINICAL HISTORY: 73 years-old Male with neuro deficit, acute stroke suspected. Acute stroke like symptoms COMPARISON STUDY: Head CT of same day, brain MRI 05/08/2024 TECHNIQUE: Following the IV administration of 118 cc of Optiray, CT angiogram of the brain was performed from the skull base to the vertex. Images are reviewed in the axial, sagittal, and coronal planes. 3-D MIPS images are created and assessed. IV contrast was administered without complication. All measurements were obtained according to NASCET criteria. A dose lowering technique was utilized adhering to the principles of ALARA. FINDINGS: CT ANGIOGRAM OF THE BRAIN: The imaged bilateral internal carotid arteries are patent. The bilateral anterior and middle cerebral arteries are also patent. There is mild multifocal narrowing of the middle cerebral arteries. The vertebrobasilar system and posterior cerebral arteries are widely patent. There is no aneurysm, high-grade stenosis, or proximal branch occlusion identified. Dural sinuses appear patent. Developmentally diminutive distal left vertebral artery terminates into the PICA. The basilar artery is diminutive with areas of mild to moderate multifocal stenoses. origin of the posterior cerebral arteries. Small infarcts of the right frontal lobe seen on prior brain MRI are not well visualized. Involutional changes with chronic microvascular ischemic disease. IMPRESSION: 1. CTA of the head demonstrates no aneurysm, dissection, high-grade stenosis or arterial occlusion. 2. The small right superior frontal lobe infarcts are better seen on the brain MRI from 05/08/2024. ACT 112: Negative or not required by law. The above report was generated using voice recognition software. It may contain grammatical, syntax or spelling errors. Electronically signed by: Horacio Ramirez M.D. 05/15/2024 4:06 PM Neck CTA 05/15/24 15:18 CT angio neck with con CLINICAL HISTORY: neuro deficit, acute stroke suspected TECHNIQUE: CT angiography of the neck was performed following intravenous administration of iodinated contrast. Coronal and sagittal MIPS were obtained from the axial data set and were submitted for review. Automated dose lowering techniques and/or adjustment according to patient size were utilized for this examination. All measurements were calculated based on NASCET criteria. CT DOSE: 930.65 mGy.cm Comparison: Comparison is made to CTA neck 10 9 FINDINGS: Lungs and soft tissues are unremarkable. CTA Neck: A 3 vessel aortic arch is shown. There is no significant a therosclerotic plaque in the aortic arch or the origins of the innominate, left common carotid, and left subclavian arteries. The common carotid, external carotid, cervical segments of the internal carotid arteries, and the cervical segments of the vertebral arteries are patent without hemodynamically significant stenosis. The right vertebral artery is dominant. The left vertebral artery terminates as PICA. IMPRESSION: No occlusion, hemodynamically significant stenosis, or dissection in the major cervical arteries. Assessment of stenosis of the internal carotid arteries is based on NASCET criteria. ACT 112: Negative or not required by law. Electronically signed by: Duran Tovar M.D. 05/15/2024 4:[address] 05/16/24 04:26 CT head/brain wo con CLINICAL HISTORY: garcia eliquis Technique: Contiguous axial CT images of the head were acquired from the base of the skull to the vertex without intravenous contrast administration. Images were viewed in brain, subdural and bone windows. Automated dose lowering techniques and/or adjustment according to patient size were utilized for this exam. Comparison: Comparison is made to CT head 05/15/2024 Findings: Areas of decreased attenuation are present in the periventricular and subcortical white matter bilaterally consistent with small vessel ischemic disease. Generalized cerebral atrophy with commensurate enlargement of the ventricles, sulci, and cisterns is also present. There is no acute intracranial hemorrhage or evidence of acute territorial infarction. No shift of the midline structures, mass effect, or extra-axial abnormalities are shown. Atherosclerotic calcifications are present in the intracranial segments of the internal carotid arteries. Imaged portions of the paranasal sinuses and mastoid air cells are clear. The orbits appear normal. There are no acute fractures of the calvaria or scalp swelling. Impression: No acute intracranial hemorrhage, no evidence of acute territorial infarction or other acute intracranial disease process. ACT 112: Negative or not required by law. Electronically signed by: Duran Tovar M.D. 05/16/2024 7:57 AM Discharge Instructions Given to Patient (Per Discharging Provider) Mr. Solis, Reji were seen by the neurologist who made some changes to your medications. They are as follows: -continue with your gabapentin as prescribed, but please take on schedule -Please take the magnesium prescribed for your migraines, as well as the Rib oflavin/vitamin B2 prescribed to help with your migraines as well -We also started you on the medication Cymbalta 30 mg to be taken in the morning -since your platelets were low, they recommended stopping your baby aspirin and just continuing with your Eliquis at home for anticoagulation. -Your propranolol dose was decreased to 5 mg twice a day due to your noted slower heart rates - also prescribed you as needed sumatriptan to help with the headache. Please take it as prescribed For your higher blood pressure readings we also started you on the medication amlodipine 2.5 mg. Please continue with that as prescribed. Please keep close follow-up with Neurology after discharge. Please keep close follow up with your primary care provider after discharge. Please do not hesitate to come back to the emergency room if your symptoms worsen or return. It was a pleasure taking care of you while you were here. Total Time Total Time Spent Total Time Spent (In Minutes): 65
--- NOTE | 2024-05-20 16:12 | Coding Query ---
CODING QUERY To promote full compliance with coding requirements relating to patient care, provider participation is requested in all cases of slot editor uncertainty. Please assist us with the question(s) below: Patient initially started as OBS for lethargy likely 2/2 closely spaced gabapentin doses on 05/15 and then conveted to IP on 05/17. 05/17 IM PN- Migraines Persistent Headache Patient with persistent headaches Acute kidney injury Creatinine acutely elevated to 1.43 Uncontrolled hypertension Patient presenting with very high blood pressures Also with episode of significantly elevated blood pressures while working with physical therapy Coding Question(s): Can you please further clarify the reason for converting this to IP status? Physician's Response(s): as above, stroke like symptoms, thrombocytopenia Thank you Cathryn Contreras Principal Diagnosis: "that condition established after study, to be chiefly responsible for occasioning the admission of the patient to the hospital for care." Co-Existing Principal Diagnosis: "when two or more diagnoses equally meet the criteria for principal diagnosis as determined by the circumstances of admission, diagnostic work up, and/or therapy provided, and the Alphabetic Index, Tabular List, or another coding guideline does not provide sequencing direction, any one of the diagnoses may be sequenced first." "When the physician has documented what appears to be a current diagnosis in the body of the record, but has not included the diagnosis in the final diagnostic statement, the physician should be asked whether the diagnosis should be added." (Source Coding [facility] 2 QTR90. p3-4) LEROY
== END 2024-05-19 13:05 | disposition home or self-care (01) | DRG 102 ==
LOC: ED 14:51 → 2S 14:51 → SUATTDRO 17:02 → 2S 21:07 → 3W 05-17 21:46

== ENCOUNTER 2024-05-23 14:30 | Inpatient (IN) ==
--- NOTE | 2024-05-23 15:05 | Emergency Department Note ---
History of Present Illness General Chief complaint: Referred by Doctor Stated complaint: LETHARGIC, NOT EATING, WEAK, BLURRY VISION Time Seen by Provider: 05/23/24 14:44 Source: patient, RN notes reviewed and old records reviewed (05/19/24-discharge summary for when he was admitted for strokelike symptoms and lethargy) Mode of arrival: ambulatory Limitations: no limitations History of Present Illness This patient is a 73-year-old male who is brought in by his caregivers/friends to said he has had increasing sleepiness and weakness. He was acting Dr. Patrick's office today and was sent over here. Dr. Patrick was concerned that he could have too much gabapentin causing this. The patient has been seen for TIA type symptoms/stroke symptoms and was in the hospital here from through Sunday. He was doing okay the first 2 days but today he is very sleepy . he has had no fall or trauma. he is on gabapentin 600 in the morning 300 in the afternoon and 600 in the evening. he was also orthostatic when they checked him in the office. He is had increasing sleepiness today .no fever chills. no fall or trauma .no focal numbness or weakness continues to have headache and blurry vision which is what he has had all along the family says. No new pains anywhere. Home Medications Medication Instructions Recorded Confirmed Type apixaban 5 mg tablet (Eliquis) 5 mg PO BID 30 days #60 tabs 02/02/21 05/23/24 Rx metformin 1,000 mg tablet 1,000 mg PO BIDM 02/12/21 05/23/24 History atorvastatin 40 mg tablet (Lipitor) 40 mg PO QAM 03/29/21 05/23/24 History gabapentin 300 mg capsule 300 mg PO TID 03/29/21 05/23/24 History (Neurontin) tamsulosin 0.4 mg capsule 0.4 mg PO QAM 08/23/22 05/23/24 History finasteride 5 mg tablet 5 mg PO QAM 05/08/24 05/23/24 History docusate sodium 100 mg capsule 100 mg PO Q OTHER DAY 05/15/24 05/23/24 History (Stool Softener) duloxetine 30 mg capsule,delayed 30 mg PO QAM #30 caps 05/19/24 05/23/24 Rx release magnesium 250 mg tablet 500 mg (2 x 250 mg) PO BID #120 05/19/24 05/23/24 Rx tabs propranolol 10 mg tablet 5 mg (1/2 x 10 mg) PO BID #15 tabs 05/19/24 05/23/24 Rx riboflavin (vitamin B2) 400 mg 400 mg PO DAILY #30 tabs 05/19/24 05/23/24 Rx tablet sumatriptan succinate 25 mg tablet 25 mg PO UD PRN Headache 05/23/24 05/23/24 History Allergies Allergy/AdvReac Type Severity Reaction Status Date / Time No Known Allergies Allergy Verified 05/15/24 15:38 Past Med/Surg History Problem List (Updated 05/23/24 @ 18:55 by Polo Patel MD) prison (current) use of 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/antiplatelets (Acute) History of stroke (Acute) Migraine Acute dehydration (Acute) Weakness (Acute) Frequent headaches Acute alteration in mental status (Acute) Stroke-like symptom (Acute) Lethargy Stroke-like symptoms Brain TIA (Acute) Type 2 diabetes mellitus Osteoarthritis Benign localized prostatic hyperplasia with lower urinary tract symptoms (LUTS) History of stroke History of DVT (deep vein thrombosis) (Chronic) 1993- Eliqu Diabetes mellitus, type 2 (Chronic) NIDDM BPH (benign prostatic hypertrophy) (Chronic) Dyslipidemia (Chronic) Medical History Knee pain, right MAGY (acute kidney injury) Weakness MAGY (acute kidney injury) Elevated troponin Anemia Kidney stones Stroke 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 ischemic stroke, residual mild weakness and short- term memory impairment Pulmonary embolism 1993- Eliquis Hydronephrosis with urinary obstruction due to ureteral calculus Hypertension Surgical History History of back surgery No hardware History of cystoscopy Cystoscopy, left retropyelogram, Left ureteral stent placement (03/30/21): LMA#4 at [facility] H/O colonoscopy History of tympanoplasty of right ear Status post appendectomy Family History Uncle Family history of diabetes mellitus Other Heart disease Social History Smoking Status: Former smoker Tobacco Type: Cigarettes Second Hand Exposure: No; Do You Dip or Chew Tobacco: No; Hx Alcohol Use: No Hx Substance Use: No Preferred Language: Nepali Communication Ability: 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 Beliefs That Will Affect Care: None marital status: / Current Living Situation: Other Current Living Situation Comment: lives at home with friends current occupation: NOT WORKING How many Children do You have: 0 Feels Safe at Home: Yes Assistive Devices: Cane and Walker Review of Systems A total of 10 systems reviewed and were otherwise negative Physical Exam Vital Signs Vital Signs - 24 hr 05/23/24 14:33 05/23/24 15:00 05/23/24 15:00 Temperature 36.5 C Temperature Source Temporal Artery Scan Pulse Rate 70 Pulse Rate [Apical] 56 L Respiratory Rate 18 18 Respiratory Effort / Characteristics Non-Labored Spontaneous Respiratory Depth Normal Respiratory Pattern Regular Blood Pressure 138/81 Blood Pressure [Right Arm] 145/90 H Blood Pressure Mean 100 Blood Pressure Mean [Right Arm] 108 Pulse Oximetry 97 95 95 Oxygen Delivery Method Room Air Room Air Room Air Sepsis Recent Fever Within 48 Hours No Sepsis New/Unexplained Change in Mental Status N/A Sepsis Action Taken by Nursing No Action Required 05/23/24 15:56 05/23/24 16:00 Temperature Temperature Source Pulse Rate 52 L Pulse Rate [Apical] 56 L Respiratory Rate 18 Respiratory Effort / Characteristics Non-Labored Spontaneous Respiratory Depth Normal Respiratory Pattern Regular Blood Pressure Blood Pressure [Right Arm] 149/99 H Blood Pressure Mean Blood Pressure Mean [Right Arm] 115 Pulse Oximetry 96 Oxygen Delivery Method Room Air Sepsis Recent Fever Within 48 Hours Sepsis New/Unexplained Change in Mental Status Sepsis Action Taken by Nursing General: Well developed well nourished sleepy older male who does wake up and answer questions and falls back to sleep. In no acute distress, breathing comfortably on room air. Normal speech HEENT: Normal cephalic atraumatic. Pupils are equal round and reactive to light. Extraocular movements are intact. Oropharynx is pink with moist mucous membranes. No swelling of the mouth lips or tongue. Neck: Supple with a midline trachea. No meningeal signs or stiffness, no JVD or bruits. No Stridor. Chest: Clear to auscultation bilaterally. No wheezes or rhonchi. No increased work of breathing. Heart: Regular rate and rhythm without murmurs or gallops. Abdomen: Soft nontender, nondistended without rebound guarding or rigidity. Extremities: No cyanosis clubbing or edema. No calf tenderness or assymetry Spine/Back. Non tender to palpation. No CVA tenderness Skin: Good turgor without rashes. Neurologic exam: Cranial nerves two through 12 are intact. Motor and sensation are intact and symmetrical throughout. No pronator drift. No tremor. Course Administered Medications Discontinued Medications Sodium Chloride (Nss) 1,000 mls @ 999 mls/hr IV .Q1H1M ONE Stop: 05/23/24 16:05 Last Infusion: 05/23/24 16:50 Dose: Infused Documented By: Admin: 05/23/24 15:48 Dose: 999 mls/hr Documented By: SANDRA Medical Decision Making Differential Diagnosis Toxicologic, metabolic, dehydration, infection, sepsis, intracranial process, cardiac disease, electrolyte or metabolic abnormality Medical Records Attestation: I reviewed the patient's medical records. Home Medications Current Medication List: was personally reviewed by me Laboratory Data Attestation: I reviewed the patient's lab results. 05/23/24 15:19 05/23/24 15:19 Lab Results 05/23/24 05/23/24 Range/Units 15:19 15:33 WBC 8.54 (4.8-10.8) K/ul RBC 4.38 L (4.70-6.10) M/uL Hgb 13.4 L (14.0-18.0) g/dl Hct 39.6 L (42.0-52.0) % MCV 90.4 (80.0-100.0) fL MCH 30.6 (25.0-34.0) pg MCHC 33.8 (32.0-36.0) g/dL RDW Std Deviation 50.6 H (36.4-46.3) fL RDW Coeff of Aranza 15.4 H (11.5-14.5) % Plt Count 114 L (130-400) K/uL MPV 10.3 (9.4-12.4) fL Immature Gran % (Auto) 1.3 % Neut % (Auto) 81.8 % Lymph % (Auto) 10.3 % [place] % (Auto) 5.2 % Eos % (Auto) 0.8 % Baso % (Auto) 0.6 % Neut # (Auto) 6.99 H (1.40-6.50) K/uL Lymph # (Auto) 0.88 L (1.20-3.40) K/uL [place] # (Auto) 0.44 (0.11-0.59) K/uL Eos # (Auto) 0.07 (0.00-0.50) K/uL Baso # (Auto) 0.05 (0.00-0.20) K/uL Immature Gran # (Auto) 0.11 (0.01-0.20) K/uL PT 11.4 (9.0-12.0) Seconds INR 1.1 (0.9-1.1) APTT 33 H (21-31) Seconds PTT Ratio 1.2 Sodium 138 (136-145) mmol/L Potassium 5.2 H (3.5-5.1) mmol/L Chloride 103 (98-107) mmol/L Carbon Dioxide 26 (21-32) mmol/L Anion Gap 9 (3-11) BUN 35 H (6-23) mg/dl Creatinine 1.91 H (0.6-1.4) mg/dl Est Cr Clr Drug Dosing Not Reportable eGFR 36.10 BUN/Creatinine Ratio 18.3 (10-20) Glucose 190 H (70-99(Fasting)) mg/dl Calcium 9.8 (8.6-10.3) mg/dl Magnesium 2.2 (1.7-2.4) mg/dl Total Bilirubin 1.0 (0.2-1.0) mg/dl AST 25 (13-39) U/L ALT 21 (7-52) U/L Alkaline Phosphatase 81 (34-104) U/L Troponin I High Sens 4.6 (0-20) pg/ml Total Protein 7.4 (6.0-8.3) gm/dl Albumin 4.6 (3.4-5.0) gm/dl Globulin 2.8 (2.5-4.0) gm/dl Albumin/Globulin Ratio 1.6 (0.9-2) Lipase 32 (11-82) U/L TSH 2.852 (0.300-4.500) uIu/ml SARS-CoV-2, RNA, NAAT NEGATIVE (NEGATIVE) Imaging Data Attestation: I personally reviewed and interpreted this imaging study as follows: My Impression: Chest x-rayno acute infiltrate, failure, pneumothorax seen Head CTno acute hemorrhage or mass effect seen. Changes from previous stroke Radiologist's Impression: Chest X-Ray 05/23/24 14:59 XR chest 1V portable CLINICAL HISTORY: Chest pain, nonspecific TECHNIQUE: Single frontal radiograph of the chest was obtained. Comparison: Comparison is made to chest radiographs 05/05/2024 FINDINGS: No lines and tubes are seen. The cardiomediastinal silhouette is normal. The lungs are clear. No evidence of pleural effusion or pneumothorax. IMPRESSION: No acute chest disease. ACT 112: Negative or not required by law. Electronically signed by: Duran Tovar M.D. 05/23/2024 3:[address] 05/23/24 16:09 CT OF THE HEAD WITHOUT CONTRAST CLINICAL HISTORY: increased sleepiness COMPARISON STUDY: MRI of the brain May 08, 2024. Head CT May 16, 2024. CT DOSE: 547.75 mGy.cm TECHNIQUE: Helical axial images of the head were obtained without IV contrast. Automated exposure control was utilized for the study. A dose lowering technique was utilized adhering to the principles of ALARA. FINDINGS: No acute intracranial hemorrhage, midline shift or mass effect is present. The ventricular system is unremarkable. The basal cisterns are patent. No extra-axial collections are present. There are no findings to suggest acute dural sinus thrombosis or acute territorial infarct. Multifocal encephalomalacia consistent with old infarcts is unchanged. The appearance of the brain is unchanged. There are no calvarial fracture IMPRESSION: No acute intracranial findings. No change in appearance of the brain. Multiple old infarcts. ACT 112: Negative or not required by law. Electronically signed by: Myron Barrientos M.D. 05/23/2024 4:58 PM ECG Data Attestation: I personally reviewed and interpreted this ECG as follows: Indication: + altered mental status Rate (beats per minute): 51 Rhythm: + sinus bradycardia ECG Intervals/blocks: + Normal QRS, + Normal QT and + Normal PA ECG Lyndon: + Normal ECG ST segments: + Normal ST segments ECG Findings: no PACs or no PVCs Comparison ECG Date: from (05/06/24) Change: no significant change MDM Narrative This patient is 73-year-old male who comes in after increasing sleepiness. It may be related to his multiple medical medications changes they made recently was in the hospital including gabapentin. He does however have multiple other potential etiologies he has had significant neuroimaging lately but I am concerned as he is also on a blood thinner with Eliquis in light of this I also ordered his CAT scan of his head additionally is ordered multiple blood testing and was COVID tested. chest x-ray and EKG were obtained was placed on a trim sawyer and room C2. I talked to his friends at length who are his caregivers and lives with him. Urinalysis was also ordered. He was hydrated 1 L IV normal saline bolus. CAT scan of his head is unremarkable. His labs show elevated BUN and creatinine consistent with dehydration. He has nothing to stress infection so far. I do think he needs to be admitted/observed this may be related to his medications he is on gabapentin and last time in the hospital he did change some of these around. At this point he cannot go home. I have consulted the [facility] hospitalist to see him in the ER and they saw him for these measures Continuous cardiac monitoring: Orders placed in EMR for continuous cardiac monitoring: And upon my evaluation patient was noted to have normal sinus rhythm with rate of 63. Impression & Plan Weakness, Acute dehydration, History of stroke, prison (current) use of 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/antiplatelets Discharge Plan Visit Data Chief Complaint: Referred by Doctor Stated Complaint: LETHARGIC, NOT EATING, WEAK, BLURRY VISION ED Provider: Polo Patel Discharge Problem: Weakness, Acute dehydration, History of stroke, prison (current) use of 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/antiplatelets Patient Disposition: Admitted As Inpatient Discharge Instructions Interventions: ED Discharge Assessment Last Done: 05/23/24 18:30
--- NOTE | 2024-05-23 15:21 | XRay Report ---
XR chest 1V portable CLINICAL HISTORY: Chest pain, nonspecific TECHNIQUE: Single frontal radiograph of the chest was obtained. Comparison: Comparison is made to chest radiographs 05/05/2024 FINDINGS: No lines and tubes are seen. The cardiomediastinal silhouette is normal. The lungs are clear. No evid ence of pleural effusion or pneumothorax. IMPRESSION: No acute chest disease. ACT 112: Negative or not required by law. Electronically signed by: Duran Tovar M.D. 05/23/2024 3:19 PM
[2024-05-23] MEDS: SODIUM CHLORIDE 0.9% 1,000 ML IV ONE (15:48)
[2024-05-23 15:51] LABS: Basophils # (auto) 0.05 K/uL (0.00-0.20); Basophils % (auto) 0.6 %; Eosinophils # (auto) 0.07 K/uL (0.00-0.50); Eosinophils % (auto) 0.8 %; Hematocrit (blood only) 39.6 % (42.0-52.0); Hemoglobin 13.4 g/dl (14.0-18.0); Immature Granulocytes # (auto) 0.11 K/uL (0.01-0.20); Immature Granulocytes % (auto) 1.3 %; Lymphocytes # (auto) 0.88 K/uL (1.20-3.40); Lymphocytes % (auto) 10.3 %; Mean Corpuscular Hemoglobin 30.6 pg (25.0-34.0); Mean Corpuscular Hgb Conc 33.8 g/dL (32.0-36.0); Mean Corpuscular Volume 90.4 fL (80.0-100.0); Mean Platelet Volume 10.3 fL (9.4-12.4); Monocytes # (auto) 0.44 K/uL (0.11-0.59); Monocytes % (auto) 5.2 %; Neutrophils # (auto) 6.99 K/uL (1.40-6.50); Neutrophils % (auto) 81.8 %; Platelet Count 114 K/uL (130-400); RDW Coefficient of Variation 15.4 % (11.5-14.5); RDW Standard Deviation 50.6 fL (36.4-46.3); Red Blood Count 4.38 M/uL (4.70-6.10); White Blood Count 8.54 K/ul (4.8-10.8)
[2024-05-23 15:59] LABS: Alanine Aminotransferase 21 U/L (7-52); Albumin Globulin Ratio 1.6 (0.9-2); Albumin Level 4.6 gm/dl (3.4-5.0); Alkaline Phosphatase 81 U/L (34-104); Anion Gap 9 (3-11); Aspartate Aminotransferase 25 U/L (13-39); BUN Creatinine Ratio 18.3 (10-20); Blood Urea Nitrogen 35 mg/dl (6-23); Calcium 9.8 mg/dl (8.6-10.3); Carbon Dioxide 26 mmol/L (21-32); Chloride 103 mmol/L (98-107); Globulin 2.8 gm/dl (2.5-4.0); Glucose 190 mg/dl (70-99(Fasting)); Lipase 32 U/L (11-82); Magnesium 2.2 mg/dl (1.7-2.4); Potassium 5.2 mmol/L (3.5-5.1); Sodium 138 mmol/L (136-145); Total Protein 7.4 gm/dl (6.0-8.3)
[2024-05-23 16:06] LABS: Troponin I High Sensitivity 4.6 pg/ml (0-20)
[2024-05-23 16:09] LABS: INR 1.1 (0.9-1.1); Partial Thromboplastin Ratio 1.2; Partial Thromboplastin Time 33 Seconds (21-31); Prothrombin Time 11.4 Seconds (9.0-12.0)
[2024-05-23 16:13] LABS: Thyroid Stimulating Hormone 2.852 uIu/ml (0.300-4.500)
--- NOTE | 2024-05-23 17:00 | CT Scan Report ---
CT OF THE HEAD WITHOUT CONTRAST CLINICAL HISTORY: increased sleepiness COMPARISON STUDY: MRI of the brain May 08, 2024. Head CT May 16, 2024. CT DOSE: 547.75 mGy.cm TECHNIQUE: Helical axial images of the head were obtained without IV contrast. Automated exposure con trol was utilized for the study. A dose lowering technique was utilized adhering to the principles o f ALARA. FINDINGS: No acute intracranial hemorrhage, midline shift or mass effect is present. The ventricular system is unremarkable. The basal cisterns are patent. No extra-axial collections are present. There are no findings to suggest acute dural sinus thrombosis or acute territorial infarct. Multifocal ence phalomalacia consistent with old infarcts is unchanged. The appearance of the brain is unchanged. The re are no calvarial fracture IMPRESSION: No acute intracranial findings. No change in appearance of the brain. Multiple old infar cts. ACT 112: Negative or not required by law. Electronically signed by: Myron Barrientos M.D. 05/23/2024 4:58 PM
--- NOTE | 2024-05-23 17:26 | History & Physical Report ---
Date of Service May 23, 2024 Assessment & Plan (1) Lethargy: (2) Weakness: (3) Acute dehydration: (4) Thrombocytopenia: (5) Dyslipidemia: (6) Type 2 diabetes mellitus: (7) Diabetes mellitus, type 2: (8) Anemia: (9) Migraine: Plan Lethargy Concern for polypharmacy causing encephalopathy - Admit to med tele -Holding gabapentin, Cymbalta -Monitor for pain control MAGY - Creatinine found to be 1.9 on admission, baseline appears to be 1.4-1.5, given 1 L NSS in the ER, continue with NS 125 x 2 more liters, encourage hydration orally and switch off IVs. -Avoid nephrotoxins renally reduce medications -Trend a.m. BMP Hx Acute/subacute right MCA territory cortical infarct Oct 10 -repeat head CT without acute findings, no bleed, may continue Eliquis -Patient presenting with lethargy, concern for too much gabapentin use as above -Delirium precautions. Frequent reorientation, avoid sedating medications as able -From last weekend, recs of Neurologist Dr Bipin Stallings, advised to discontinue aspirin and continue with Eliquis only. -PT/OT evals Thrombocytopenia -Plt 114 on admit, follow am labs Migraines Persistent Headache - Was on propranolol 10mg BID for preventative measures, dose decreased to 5mg BID in setting of bradycardia - Imitrex/sumatriptan prn abortive measures - Neurology consulted for further recs last admission : "Continue with gabapentin 600 mg twice daily at 300 mg. Cymbalta 30 mg daily, baclofen 5 mg daily x 3 days for cervicogenic element" Add magnesium 500 mg twice daily, riboflavin 400 mg daily. Okay with a small dose sumatriptan for migraine abortive treatment. - Possible that combination of these meds are adding to lethargy Uncontrolled hypertension -hydralazine prn with parameters for SBP greater than 180, propranolol 5mg BID, amlodipine was added Bradycardia - echo from previous admission in April noting EF 55 to 60%, mild left v entricular hypertrophy, grade 1 diastolic dysfunction, mild mitral regurgitation, left ventricular wall motion normal - propranolol was reduced during last admission as above - HR running in 50s Possible sleep apnea Breathing pauses -happens during sleep per pt's friend Montse -Nocturnal pulse ox. -advised to have full sleep study as OP in coordination Chronic Anemia - hgb 13.4, possibly concentrated with dehydration along with MAGY, follow - Recent anemia panel normal DM II - ISS with accuchecks achs - last A1C 8 DVT ppx: eliquis Lines: PIV x 1 FEN/GI: Heart healthy CODE: DNR/DNI Dispo: From home, likely to remain in the hospital x 1-2 days A total of 75 minutes were spent with greater than 50% of that time face to face with the patient, personally reviewing all current laboratories, imaging studies, past medication reconciliation, outpatient chart review, and discussion with specialists to collaborate care for the patient with attending. Please see attending documentation for corrections and/or additions. History of Present Illness Chief Complaint: Lethargy Primary Care Provider: Keo Patrick DO 73-year-old male with PMHx significant for strokes [December 2020, April 2021, April 2024], DVT/PE on Eliquis, T2DM, HLD, thrombocytopenia, BPH who presented to the ED at referral from PCP office for noted generalized weakness and lethargy. He has had multiple admissions this month from 05/08-05/09 with recent CVA, as well as 05/15-05/19 for stroke like symptoms, acute metabolic encephalopathy. Patient denies having any acute complaints today, he just feels fatigued. He has not had good oral intake since Sunday. His friend, Roby, present at bedside states that the patient lives with him and has been taking care of him since 2019 and that he has no other family. He is very up on his medications, has a list. They were in and saw his PCP this morning who referred him here for increased lethargy and has request to reduce gabapentin to 300 mg 3 times daily, and discontinue amlodipine which was started upon discharge on 05/19. Allergies Allergy/AdvReac Type Severity Reaction Status Date / Time No Known Allergies Allergy Verified 05/15/24 15:38 Home Medications Medication Instructions Recorded Confirmed Type apixaban 5 mg tablet (Eliquis) 5 mg PO BID 30 days #60 tabs 02/02/21 05/23/24 Rx metformin 1,000 mg tablet 1,000 mg PO BIDM 02/12/21 05/23/24 History atorvastatin 40 mg tablet (Lipitor) 40 mg PO QAM 03/29/21 05/23/24 History gabapentin 300 mg capsule 300 mg PO TID 03/29/21 05/23/24 History (Neurontin) tamsulosin 0.4 mg capsule 0.4 mg PO QAM 08/23/22 05/23/24 History finasteride 5 mg tablet 5 mg PO QAM 05/08/24 05/23/24 History docusate sodium 100 mg capsule 100 mg PO Q OTHER DAY 05/15/24 05/23/24 History (Stool Softener) duloxetine 30 mg capsule,delayed 30 mg PO QAM #30 caps 05/19/24 05/23/24 Rx release magnesium 250 mg tablet 500 mg (2 x 250 mg) PO BID #120 05/19/24 05/23/24 Rx tabs propranolol 10 mg tablet 5 mg (1/2 x 10 mg) PO BID #15 tabs 05/19/24 05/23/24 Rx riboflavin (vitamin B2) 400 mg 400 mg PO DAILY #30 tabs 05/19/24 05/23/24 Rx tablet sumatriptan succinate 25 mg tablet 25 mg PO UD PRN Headache 05/23/24 05/23/24 History Past Med/Surg History Problem List (Updated 05/23/24 @ 17:12 by Radha Zacarias PA-C) Migraine Acute dehydration (Acute) Weakness (Acute) Frequent headaches Acute alteration in mental status (Acute) Stroke-like symptom (Acute) Lethargy Stroke-like symptoms Brain TIA (Acute) Type 2 diabetes mellitus Osteoarthritis Benign localized prostatic hyperplasia with lower urinary tract symptoms (LUTS) History of stroke History of DVT (deep vein thrombosis) (Chronic) 1993- Diabetes mellitus, type 2 (Chronic) NIDDM BPH (benign prostatic hypertrophy) (Chronic) Dyslipidemia (Chronic) Medical History Knee pain, right MAGY (acute kidney injury) Weakness MAGY (acute kidney injury) Elevated troponin Anemia Kidney stones Stroke 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 ischemic stroke, residual mild weakness and short- term memory impairment Pulmonary embolism 1993- Hydronephrosis with urinary obstruction due to ureteral calculus Hypertension Surgical History History of back surgery No hardware History of cystoscopy Cystoscopy, left retropyelogram, Left ureteral stent placement (03/30/21): LMA#4 at [facility] H/O colonoscopy History of tympanoplasty of right ear Status post appendectomy Family History Uncle Family history of diabetes mellitus Other Heart disease Social History Smoking Status: Former smoker Tobacco Type: Cigarettes Second Hand Exposure: No; Do You Dip or Chew Tobacco: No; Hx Alcohol Use: No Hx Substance Use: No Preferred Language: Iranian Communication Ability: Effective Trimmer Sawyer Required: No Beliefs That Will Affect Care: None marital status: / Current Living Situation: Other Current Living Situation Comment: lives at home with friends current occupation: NOT WORKING How many Children do You have: 0 Feels Safe at Home: Yes Assistive Devices: Cane and Walker Review of Systems Review of Systems: Constitutional: No fever, sweats or chills Eyes: No diplopia, no worsening or blurred vision ENT: normal hearing, no trouble swallowing Respiratory: No cough, sputum, dyspnea at rest or on exertion Cardiovascular: No chest pain, tightness or palpitations Abdomen: No pain, nausea, vomiting, diarrhea or constipation Musculoskeletal: No joint pain, calf pain, swelling Neurologic: No weakness, numbness/tingling, or balance problems, + has had issues with balance and requiring walker last 2 days, no falls. Psychiatric: No anxiety or depression Skin: No rash or itch Physical Exam Physical Exam: General: awake, alert, no apparent distress, elderly white male, + lethargy, has difficulty staying awake during conversation, participates in conversation, follows all commands correctly Head: Normocephalic, atraumatic ENT: PERRL, EOMI, no pharyngeal exudate, mucous membranes moist Chest: Clear to auscultation, on room air, no adventitious breath sounds Cardiac: Regular rate and rhythm, + loud systolic murmur, + rub, no JVD, normal peripheral pulses, good capillary refill Abdominal: NABS x 4 quadrants, soft, nondistended, nontender to palpation, no rebound or guarding Extremities: Normal inspection, no peripheral edema or erythema, calfs nontender to palpation Psych: Normal mood and affect Neuro: AAO x 3, strength intact bilaterally and rated 5/5, no motor deficits, speech is clear, no peripheral sensory deficits Results & Data Results & Data Vital Signs (Past 12 Hours) Vital Signs Temp Pulse Pulse Resp BP BP Pulse Ox 05/23/24 16:00 56 L 18 149/99 H 96 05/23/24 15:56 52 L 05/23/24 15:00 95 05/23/24 15:00 56 L 18 145/90 H 95 05/23/24 14:33 36.5 C 70 18 138/81 97 O2 Del Method 05/23/24 16:00 Room Air 05/23/24 15:56 05/23/24 15:00 Room Air 05/23/24 15:00 Room Air 05/23/24 14:33 Room Air Laboratory Results 05/23/24 05/23/24 15:33 15:19 WBC 8.54 RBC 4.38 L Hgb 13.4 L Hct 39.6 L MCV 90.4 MCH 30.6 MCHC 33.8 RDW Std Deviation 50.6 H RDW Coeff of Aranza 15.4 H Plt Count 114 L MPV 10.3 Immature Gran % (Auto) 1.3 Neut % (Auto) 81.8 Lymph % (Auto) 10.3 Oz[place] % (Auto) 5.2 Eos % (Auto) 0.8 Baso % (Auto) 0.6 Neut # (Auto) 6.99 H Lymph # (Auto) 0.88 L [place] # (Auto) 0.44 Eos # (Auto) 0.07 Baso # (Auto) 0.05 Immature Gran # (Auto) 0.11 PT 11.4 INR 1.1 APTT 33 H PTT Ratio 1.2 Sodium 138 Potassium 5.2 H Chloride 103 Carbon Dioxide 26 Anion Gap 9 BUN 35 H Creatinine 1.91 H Est Cr Clr Drug Dosing Not Reportable eGFR 36.10 BUN/Creatinine Ratio 18.3 Glucose 190 H Calcium 9.8 Magnesium 2.2 Total Bilirubin 1.0 AST 25 ALT 21 Alkaline Phosphatase 81 Troponin I High Sens 4.6 Total Protein 7.4 Albumin 4.6 Globulin 2.8 Albumin/Globulin Ratio 1.6 Lipase 32 TSH 2.852 SARS-CoV-2, RNA, NAAT NEGATIVE Diagnostic Findings Chest X-Ray 05/23/24 14:59 XR chest 1V portable CLINICAL HISTORY: Chest pain, nonspecific TECHNIQUE: Single frontal radiograph of the chest was obtained. Comparison: Comparison is made to chest radiographs 05/05/2024 FINDINGS: No lines and tubes are seen. The cardiomediastinal silhouette is normal. The lungs are clear. No evidence of pleural effusion or pneumothorax. IMPRESSION: No acute chest disease. ACT 112: Negative or not required by law. Electronically signed by: Duran Tovar M.D. 05/23/2024 3:[address] 05/23/24 16:09 CT OF THE HEAD WITHOUT CONTRAST CLINICAL HISTORY: increased sleepiness COMPARISON STUDY: MRI of the brain May 08, 2024. Head CT May 16, 2024. CT DOSE: 547.75 mGy.cm TECHNIQUE: Helical axial images of the head were obtained without IV contrast. Automated exposure control was utilized for the study. A dose lowering technique was utilized adhering to the principles of ALARA. FINDINGS: No acute intracranial hemorrhage, midline shift or mass effect is present. The ventricular system is unremarkable. The basal cisterns are patent. No extra-axial collections are present. There are no findings to suggest acute dural sinus thrombosis or acute territorial infarct. Multifocal encephalomalacia consistent with old infarcts is unchanged. The appearance of the brain is unchanged. There are no calvarial fracture IMPRESSION: No acute intracranial findings. No change in appearance of the brain. Multiple old infarcts. ACT 112: Negative or not required by law. Electronically signed by: Myron Barrientos M.D. 05/23/2024 4:58 PM ECG Additional Comments: Reviewed, no acute ST wave inversions or signs of ischemia Code Status & VTE Plan Code Status DNR/DNI discussed with the patient at bedside Supervising Physician Co-Signing Physician Notes Attending addendum: The patient was seen and examined in emergency room in presence of the family member He has been complaining of progressive weakness and not eating and drinking much for the last few days He was seen by his primary care physician this afternoon and was sent in for further evaluation Initial thought was medication induced lethargy and the patient denies any cough, fever, abdominal pain nausea and or vomiting also complaining of headache with occasional dizziness no history of fall On examination Lying in bed without any apparent distress Hemodynamically stable and afebrile Complains of headache and remained very lethargic Chestclear to auscultate bilaterally HeartS1-S2, regular Abdomenbenign Extremitiesnegative for any edema CNSalert and awake. Very drowsy. Conversing normally and moving all extremities without any focal neurodeficit His admission labs, EKG and imaging studies reviewed Noted to have acute dehydration with increasing creatinine Will have urine tox screen No evidence of infection as of yet Profound lethargy could be secondary to polypharmacy associated with dehydration Will hold off any pain medications and gabapentin Will provide intravenous fluid and monitor PRP and electrolytes Will need to have PT and OT evaluation prior to discharge Agree with assessment and plan as outlined above by Radha Ramsey PA-C and take the full responsibility of the care Dr Mary Dejesus (7) Anemia Anemia type: unspecified type Qualified Code(s): D64.9 - Anemia, unspecified
[2024-05-23] MEDS ORDERED: GLUCOSE 10 TAB/TUBE PO PRN (18:35)
[2024-05-23] MEDS ORDERED: GLUCOSE 40% GEL 15 GM TUBE PO PRN (18:35)
[2024-05-23] MEDS ORDERED: CARBOHYDRATES FOR HYPOGLYCEMIA PO PRN (18:35)
[2024-05-23] MEDS ORDERED: DEXTROSE 50% 50 ML SYRINGE IV PRN (18:35)
[2024-05-23] MEDS ORDERED: GLUCAGON FOR INJ 1 MG VIAL SQ PRN (18:35)
[2024-05-23] MEDS ORDERED: ONDANSETRON INJ 2 MG/ML 2 ML VIAL IV PRN (18:35)
[2024-05-23] MEDS: SODIUM CHLORIDE 0.9% 1,000 ML IV SCH (19:05)
[2024-05-23] MEDS: ACETAMINOPHEN 325 MG TAB PO PRN (19:33)
[2024-05-23] MEDS: Patient's HEIGHT &/or WEIGHT Needed STA (20:06)
--- NOTE | 2024-05-23 20:25 | Electrocardiogram Report ---
Test Reason : Blood Pressure : */* mmHG Vent. Rate : 51 BPM Atrial Rate : 51 BPM P-R Int : 152 ms QRS Dur : 86 ms QT Int : 430 ms P-R-T Axes : 51 -28 58 degrees QTcB Int : 396 ms Sinus bradycardia Otherwise normal ECG When compared with ECG of 16-May-2024 03:09, No significant change was found Confirmed by Floyd Salgado ([id number]) on 05/23/2024 8:25:07 PM Referred By: Keo Patrick Confirmed By: Floyd Salgado
[2024-05-23] MEDS: PROPRANOLOL HCL 10 MG TAB PO SCH (20:49)
[2024-05-23] MEDS: INSULIN ASPART PER UNIT CHARGE SC SCH (20:50)
[2024-05-23] MEDS ORDERED: GABAPENTIN 300 MG CAP PO SCH (21:00)
[2024-05-23] MEDS: DOCUSATE SODIUM 100 MG CAP PO SCH (21:08)
[2024-05-23] MEDS: MAGNESIUM OXIDE 400 MG TAB PO SCH (21:09)
[2024-05-23] MEDS: hydrALAZINE HCL 20 MG/ML VIAL IV STA (21:09)
[2024-05-23] MEDS: APIXABAN 5 MG TABLET PO SCH (21:09)
--- OUTSIDE RECORDS SUMMARY | 2024-05-24 04:57 | External Medical Summary | Summary of Care ---
Author Name Unknown Organization [facility] Address [address] [place] [address] Phone [phone] Care Team Providers Care Audio Operator Name Role Phone Keo Patrick Primary Care Provider [phone] Encounter Details Date Type Department Care Team (Late st Contact Info) Description 05/15/2024 2:00 PM EDT Nurse Only Family Practice [address] [phone] College, Nurse [facility] Prac [address] [address] Arrived Allergies No known active allergiesdocumented as of this encounter (statuses as of 05/15/2024) Medications Medication Sig Dispensed Refills Start Date End Date Status Aspirin 81 MG Oral CapsuleIndications:[facility] Take 81 mg by mouth in the [...] stage 3a chronic kidney disease and hypertension ([facility]) TAKE 1 TABLET BY MOUTH TWICE DAILY [...] Tablet (Eliquis)Indications :Recurrent deep vein thrombosis (DVT) ([facility]) Take 1 Tablet by mouth in the morning and 1 Tablet before bedtime. 200 Tablet 08/16/2023 Active Gabapentin 300 MG Oral Capsule (Neurontin) Take 2 capsules by mouth in the morning, 1 capsule by mouth at noon and 2 capsules by mouth in the evening. Active documented as of this encounter (statuses as of 05/15/2024) Active Problems Problem Noted Date Diagnosed Date [...] protocol #14. ICD-10 update of inactive term detention current use of anticoagulant therapy 0 08/05/2003 Overview: ICD-10 update of inactive term Varicose vein of leg documented as of this encounter (statuses as of 05/15/2024) Resolved Problems Problem Noted Date Diagnosed Date [...] as of this encounter (statuses as of 05/15/2024) Immunizations Name Administration Dates Next Due H1N1 [...] Sign Reading Time Taken Comments Blood Pressure 135/92 05/15/2024 1:38 PM EDT Pulse 80 05/15/2024 1:38 PM EDT Temperature - - Respiratory Rate 16 05/15/2024 1:38 PM EDT Oxygen Saturation 97% 05/15/2024 1:38 PM EDT Inhaled Oxygen Concentration - - Weight - - Height - - Body Mass Index - - documented in this encounter Progress Notes * Keo Patrick DO - 05/15/2024 2:36 PM EDT Patient has return of dizziness, and imbalance that started this morning. Headache still present. No chest pain or shortness of breath. BP supine 156/94, Pulse 70 BP seated 167/106, Pulse 89 BP standing 105/65 Pulse 86 Patient with similar symptoms that were present with CVA 1 week ago. Patient will be taken to ED emergently Repeat called to [facility] ED documented in this encounter Nursing Notes * Krystal Barclay LPN - 05/15/2024 1:37 PM EDT States felt well yesterday and when he got up this am. Went outside and became a little dizzy along with not feeling stable with walking. Denies SOB or chest pain, headache is not any worse. Did state this morning it was worse. documented in this encounter Plan of Treatment Upcoming Encounters Date Type Department Care Team (Late st Contact Info) Description 05/27/2024 10:00 AM EDT Office Visit Family Practice [address] [place] [address] [place] [address] Keo Patrick DO [address] [place] [address] 06/10/2024 12:30 PM EST Office Visit Neurology [facility] [address] [place] [address] Nikki Santillan PA-C [address] [place] [address] 06/25/2024 11:45 AM EST Office Visit Urology, [facility] [address] [facility] [place] [address] Alfredo Maguire MD [address] [place] [address] 07/10/2024 10:20 AM EST Office Visit Family Practice [address] [place] [address] 293 [facility], [place] [phone] Keo Patrick DO [address] [place] [address] Scheduled Procedures Name Priority Associated Diagnoses Date/Ti me COLONOSCOPY FLEXIBLE PROXIMAL DIAGNOSTIC Recall History of colon polyps Health Maintenance Due Date Last Done Comments Adult Wellness Visit 11/08/2017 11/08/2016 Influenza Vaccine (FLU shot) (#1) 2024 06/27/2021, 05/12/2016, 04/20/2015, Additional history exists CKD PHOS USE SMARTSET 59252 06/29/2024 12/0 07/2022, 06/28/2023, 06/27/2023, Additional history exists Diabetic Eye Exam 08/15/2024 08/15/2023, , 06/05/2022, Additional history exists HbA1c 09/06/2024 03/06/2024, 04/0 10/2023, 06/14/2023, Additional history exists Diabetic Foot Exam 10/31/2024 11/01/2023, 0 11/01/2023, 10/23/2022, Additional history exists GFR 11/10/2024 05/12/2024, 10/28, 11/01/2023, Additional history exists Colonoscopy 01/25/2025 01/25/2022, 12/29, 07/18/2018, Additional history exists B-12 03/06/2025 03/06/2024, 07/0 12/2022, 01/12/2022, Additional history exists Albumin/Creatinine Ratio 05/12/2025 024, 06/15/2023, 08/03/2022, Additional history exists CKD HGB USE SMARTSET 76427 05/12/202505/12, 05/12/2024, 11/01/2023, Additional history exists Depression [...] Documents on File Type Date Recorded Patient Academic Registrar Expl anation Advance Directives and Living Will 05/13/2022 ADVANCE DIRECTIVE / LIVING WILL Power of Wireless Construction Manager 05/13/2022 POWER OF A TTORNEY * Full Code (Latest Code Status on File) Date Activated Date Inactivated Comments 06/26/2023 10:04 PM 06/29/2023 7:56 PM This order reflects the patients wishes and were consensually agreed upon. Question Answer Comments Discussion of Advance Direct vivien occurred with: Not Discussed due to patient's condition Healthcare Agents on File Name Relationship Healthcare Agent Relationship Communication Montse Mednes Other - (no specific identity) Health Care Agent (per Health Care Power of Wireless Construction Manager document) Care Teams Audio Operator Relationship Specialty Start Date End Date Keo Patrick DO [address] [place] [address] PCP - General Internal Medicine 03/04/24 documented as of this encounter
--- OUTSIDE RECORDS SUMMARY | 2024-05-24 04:57 | External Medical Summary | Summary of Care ---
Author Name Unknown Organization [facility] Address [address] [place] [address] Phone [phone] Care Team Providers Care Photograph Printer Name Role Phone Keo Patrick Primary Care Provider [phone] Encounter Details Date Type Department Care Team (Late st Contact Info) Description 05/19/2024 1:30 PM EDT Scheduled Telephone Care Coordination and Integration [address] [place], [place] [phone] Lorri Zheng, [facility] Furnace Attendant [address], [place] [phone] Allergies No known active allergiesdocumented as of this encounter (statuses as of 05/19/2024) Medications Medication Sig Dispensed Refills Start Date End Date Status Aspirin 81 MG Oral CapsuleIndications:[facility] Take 81 mg by mouth in the [...] EVENING MEAL 200 Tablet 3 08/16/2023 Active Finasteride 5 MG Oral Tablet (Proscar)Indications :BPH with obstruction/lower urinary tract symptoms Take 1 Tablet by mouth in the morning. 100 Tablet 08/16/2023 Active Atorvastatin Calcium 40 MG Oral Tablet (Lipitor)Indications :Dyslipidemia, goal LDL below 100 Take 1 Tablet by mouth in the morning. 100 Tablet 08/16/2023 Active Apixaban 5 MG Oral Tablet (Eliquis)Indications :Recurrent deep vein thrombosis (DVT) ([facility]) Take 1 Tablet by mouth in the morning and 1 Tablet before bedtime. 200 Tablet 08/16/2023 Active Gabapentin 300 MG Oral Capsule (Neurontin) Take 2 capsules by mouth in the morning, 1 capsule by mouth at noon and 2 capsules by mouth in the evening. Active documented as of this encounter (statuses as of 05/19/2024) Active Problems Problem Noted Date Diagnosed Date [...] protocol #14. ICD-10 update of inactive term [facility] current use of anticoagulant therapy 0 08/05/2003 Overview: ICD-10 update of inactive term Varicose vein of leg documented as of this encounter (statuses as of 05/19/2024) Resolved Problems Problem Noted Date Diagnosed Date [...] as of this encounter (statuses as of 05/19/2024) Immunizations Name Administration Dates Next Due H1N1 [...] Care Team (Late st Contact Info) Description 05/23/2024 1:15 PM EDT Nurse Only Family Practice 65 [facility] 293 [place] [phone] College, Nurse Fam Prac [address] [address] 05/23/2024 1:40 PM EDT Office Visit Family Practice 65 [facility] [address] [place] [phone] Keo Patrick, DO [address] [place] [address] 05/27/2024 10:00 AM EDT Office Visit Family Practice 65 [facility] [address] [place] [phone] Keo Patrick, DO [address] [place] [address] 06/10/2024 12:30 PM EST Office Visit Neurology [facility] 200 [facility] [place] [address] Nikki Santillan PA-C [address] [place] [address] 06/25/2024 11:45 AM EST Office Visit Urology, [facility] [address] [place] [address] Alfredo Maguire MD [address] [place] [address] 07/10/2024 10:20 AM EST Office Visit Family Practice [address] [place] [address] 293 [facility] [place] [phone] Keo Patrick, DO [address] [place] [address] Scheduled Procedures Name Priority Associated Diagnoses Date/Ti me COLONOSCOPY FLEXIBLE PROXIMAL DIAGNOSTIC Recall History of colon polyps Health Maintenance Due Date Last Done Comments Adult Wellness Visit 11/08/2017 11/08/2016 Influenza Vaccine (FLU shot) (#1) 2024 06/27/2021, 05/12/2016, 04/20/2015, Additional history exists CKD PHOS USE SMARTSET 06195 06/29/2024 12/0 07/2022, 06/28/2023, 06/27/2023, Additional history exists Diabetic Eye Exam 08/15/2024 08/15/2023, , 06/05/2022, Additional history exists HbA1c 09/06/2024 03/06/2024, 04/0 10/2023, 06/14/2023, Additional history exists Diabetic Foot Exam 10/31/2024 11/01/2023, 0 11/01/2023, 10/23/2022, Additional history exists GFR 11/10/2024 05/12/2024, 04/1 , 11/01/2023, Additional history exists Colonoscopy 01/25/2025 01/25/2022, 12/29, 07/18/2018, Additional history exists B-12 03/06/2025 03/06/2024, 07/0 12/2022, 01/12/2022, Additional history exists Albumin/Creatinine Ratio 05/12/2025 024, 06/15/2023, 08/03/2022, Additional history exists CKD HGB USE SMARTSET 25903 05/12/202505/12, 05/12/2024, 11/01/2023, Additional history exists Depression [...] Documents on File Type Date Recorded Patient Accounting Software Specialist Expl anation Advance Directives and Living Will 05/13/2022 ADVANCE DIRECTIVE / LIVING WILL Power of Pruner 05/13/2022 POWER OF A TTORNEY * Full [...] Care Agent (per Health Care Power of Pruner document) Care Teams Photograph Printer Relationship Specialty Start Date End Date Keo Patrick DO [address] [place] [address] PCP - General Internal Medicine 03/04/24 documented as of this encounter
--- OUTSIDE RECORDS SUMMARY | 2024-05-24 04:57 | External Medical Summary | Summary of Care ---
Author Name Unknown Organization [facility] Address [address] [place] [address] Phone [phone] Care Team Providers Care Environmental Compliance Specialist Name Role Phone Keo Patrick Shirley VERDIN Primary Care Provider [phone] Encounter Details Date Type Department Care Team (Late st Contact Info) Description 05/20/2024 12:45 PM EDT Nurse Only Family Practice [address] [address] College, Nurse [facility] Prac [address] [address] Allergies No known active allergiesdocumented as of this encounter (statuses as of 05/21/2024) Medications Medication Sig Dispensed Refills Start Date End Date Status Aspirin 81 MG Oral CapsuleIndications: Heart health Take 81 mg by mouth in the morning. Active Acetaminophen 500 MG Oral Tablet Take 3 Tablets by mouth daily as needed for Pain, Breakthrough. Active Sennosides-Docusate Sodium 8.6-50 MG Oral Tablet Take 1 Tablet by mouth every evening. As needed Active Tamsulosin HCl 0.4 MG Oral Capsule (Flomax)Indications :BPH with obstruction/lower urinary tract symptoms Take 1 Capsule by mouth in the morning. 100 Capsule 3 08/16/2023 Active Propranolol HCl 10 MG Oral Tablet (Inderal)Indication s:Other headache syndrome Take 1 Tablet by mouth in the morning and 1 Tablet before bedtime. 200 Tablet 3 08/16/2023 Active Additional Information Patient taking differently: 5 mgOral BID (.AM/PM), Reported on 05/20/2024 metFORMIN HCl 1000 MG Oral Tablet (Glucophage)Indicat ions:Type 2 diabetes mellitus with hemoglobin A1c goal of less than 7.0% (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) TAKE 1 TABLET BY MOUTH TWICE DAILY WITH MORNING MEAL AND WITH EVENING MEAL 200 Tablet 08/16/2023 Active Finasteride 5 MG Oral Tablet (Proscar)Indication s:BPH with obstruction/lower urinary tract symptoms Take 1 Tablet by mouth in the morning. 100 Tablet 08/16/2023 Active Atorvastatin Calcium 40 MG Oral Tablet (Lipitor)Indication s:Dyslipidemia, goal LDL below 100 Take 1 Tablet by mouth in the morning. 100 Tablet 08/16/2023 Active Apixaban 5 MG Oral Tablet (Eliquis)Indication s:Recurrent deep vein thrombosis (DVT) ([facility]) Take 1 Tablet by mouth in the morning and 1 Tablet before bedtime. 200 Tablet 08/16/2023 Active Gabapentin 300 MG Oral Capsule (Neurontin) Take 2 capsules by mouth in the morning, 1 capsule by mouth at noon and 2 capsules by mouth in the evening. Active amLODIPine Besylate 2.5 MG Oral Tablet (Norvasc) Take 1 Tablet by mouth in the morning. Active Magnesium 500 MG Oral Capsule Take 1 Capsule by mouth in the morning and 1 Capsule before bedtime. Active Riboflavin 400 MG Oral Capsule Take 1 Capsule by mouth in the morning. Active DULoxetine HCl 30 MG Oral Capsule Delayed Release Particles (Cymbalta) Take 1 Capsule by mouth in the morning. Active SUMAtriptan Succinate 25 MG Oral Tablet (Imitrex) Take 1 Tablet by mouth every 2 hours as needed for Migraine. Active documented as of this encounter (statuses as of 05/21/2024) Active Problems Problem Noted Date Diagnosed Date [...] protocol #14. ICD-10 update of inactive term senior living current use of anticoagulant therapy 0 08/05/2003 Overview: ICD-10 update of inactive term Varicose vein of leg documented as of this encounter (statuses as of 05/21/2024) Resolved Problems Problem Noted Date Diagnosed Date [...] as of this encounter (statuses as of 05/21/2024) Immunizations Name Administration Dates Next Due H1N1 [...] as of this encounter Progress Notes * Keo Patrick DO - 05/21/2024 9:21 AM EDT Keep visit on 05/23 * Krystal Barclay LPN - 05/20/2024 2:33 PM EDT Patient came in office, states he was a bit shaky. Recently in hospital. Vitals taken, poc blood sugar taken per order. States he is feeling a bit better. Dr Patrick advised to discharge. Thank you documented in this encounter Plan of Treatment Upcoming Encounters Date Type Department Care Team (Late st Contact Info) Description 05/23/2024 1:15 PM EDT Nurse Only Family Practice 65 [facility] [address] [place] [address] College, Nurse Fam Prac [address] [place] [address] 05/23/2024 1:40 PM EDT Office Visit Family Practice 65 [facility] [address] [place] [address] Keo Patrick, DO 293 [place] [address] 05/27/2024 10:00 AM EDT Office Visit Family [address] [place] [address] Keo Patrick, DO 293 [place] [address] 06/10/2024 12:30 PM EST Office Visit Neurology [facility] 200 [place] [address] Nikki Santillan PA-C [address] [place] [address] 06/25/2024 11:45 AM EST Office Visit Urology, [facility] [address] [place] [address] Alfredo Maguire MD [address] [place] [address] 07/10/2024 10:20 AM EST Office Visit Family Practice [address] [place] [address] [address] [place] [address] Keo Patrick, DO 293 [place] [address] Scheduled Procedures Name Priority Associated Diagnoses Date/Ti me COLONOSCOPY FLEXIBLE PROXIMAL DIAGNOSTIC Recall History of colon polyps Health Maintenance Due Date Last Done Comments Adult Wellness Visit 11/08/2017 11/08/2016 Influenza Vaccine (FLU shot) (#1) 2024 06/27/2021, 05/12/2016, 04/20/2015, Additional history exists CKD PHOS USE SMARTSET 50594 06/29/2024 12/0 07/2022, 06/28/2023, 06/27/2023, Additional history [...] Additional history exists CKD HGB USE SMARTSET 14369 05/12/202505/12, 05/12/2024, 11/01/2023, Additional history exists Depression [...] Not on filedocumented as of this encounter Procedures Procedure Name Priority Date/Time Associated Diagnosis Comments GLUCOSE METER, POINT OF CARE Routine 05/20/2024 12:54 PM EDT 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 (HCC) Shakiness documented in this encounter Results * (ABNORMAL) GLUCOSE METER, POINT OF CARE (05/20/2024 12:54 PM EDT) GLUCOSE - POCT 209(H) 70 - 120 mg/dL 05/20/2024 12:[address] PM [address]T [facility] 56-21 Blood 05/20/2024 12:5 4 PM EDT 05/20/2024 12:56 PM EDT Keo Patrick DO LAB POINT OF CARE TE ST DOCKED DEVICE UNSOLICITED RESULTS [facility] 56-21 [address] [facility] [address], [facility] documented in this encounter Visit Diagnoses Diagnosis 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 Question Answer Comments Discussion of Advance Direct vivien occurred with: Not Discussed due to patient's condition Healthcare Agents on File Name Relationship Healthcare Agent Relationship Communication Montse Vaughn Other - (no specific identity) Health Care Agent (per Health Care Power of Wheel Loader Operator document) Care Teams Environmental Compliance Specialist Relationship Specialty Start Date End Date [facility]o Patrick DO [address] [facility] [address] PCP - General Internal Medicine 03/04/24 documented as of this encounter
--- OUTSIDE RECORDS SUMMARY | 2024-05-24 04:57 | External Medical Summary | Summary of Care ---
Author Name Unknown Organization [facility] Address [address] [place] [address] Phone [phone] Care Team Providers Care Rubbing Bed Operator Name Role Phone Keo Patrick Shirley VERDIN Primary Care Provider [phone] Encounter Details Date Type Department Care Team (Late st Contact Info) Description 05/19/2024 [facility] Emergency [facility] Health External Data Unspecified Department Allergies No known active allergiesdocumented as of this encounter (statuses as of 05/19/2024) Medications Medication Sig Dispensed Refills Start Date End Date Status Aspirin 81 MG Oral CapsuleIndications:[facility] Take 81 mg by mouth [...] before bedtime. 200 Tablet 3 08/16/2023 Active Gabapentin 300 [...] protocol #14. 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 current use of anticoagulant therapy 0 08/05/2003 [...] 10:00 AM EDT Office Visit Family Practice [address] [place] [address] [address] [place] [address] Keo Patrick, [address] [place] [address] 06/10/2024 12:30 PM EST Office Visit Neurology [facility] 200 [place] [address] Nikki Santillan PA-C [address] [place] [address] 06/25/2024 11:45 AM EST Office Visit Urology, [facility] 132 [facility] [place] [address] Alfredo Maguire MD [address] [facility] [address] 07/10/2024 10:20 AM EST Office Visit Family Practice [address] [place] [address] [address] [place] [address] Keo Patrick, [address] [place] [address] Scheduled Procedures Name Priority Associated Diagnoses Date/Ti me COLONOSCOPY FLEXIBLE PROXIMAL DIAGNOSTIC Recall History of colon polyps Health Maintenance Due Date Last Done Comments Adult Wellness Visit 11/08/2017 11/08/2016 Influenza Vaccine (FLU shot) (#1) 2024 06/27/2021, 05/12/2016, 04/20/2015, Additional history exists CKD PHOS USE SMARTSET 85592 06/29/2024 12/0 07/2022, 06/28/2023, 06/27/2023, Additional history [...] Additional history exists CKD HGB USE SMARTSET 43615 05/12/202505/12, 05/12/2024, 11/01/2023, Additional history exists Depression [...] Documents on File Type Date Recorded 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
--- OUTSIDE RECORDS SUMMARY | 2024-05-24 04:57 | External Medical Summary | Summary of Care ---
Author Name Unknown Organization [facility] Address [address] [place] [address] Phone [phone] Care Team Providers Care Billet Recorder Name Role Phone Celina Keo Watson DO Primary Care Provider [phone] Encounter Details Date Type Department Care Team (Late st Contact Info) Description 05/15/2024 Documentation HEALTH & WELLNESS Sis Giron, Health Storage Engineer Allergies No known active allergiesdocumented as of this encounter (statuses as of 05/15/2024) Medications Medication Sig Dispensed Refills Start Date End Date Status Aspirin 81 MG Oral CapsuleIndications:[facility] Take 81 mg by mouth in the [...] protocol #14. 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 Patient stated that he felt unsteady on his feet today. Towards the end of the session, he stated that he didn't feel right and couldn't explain how he felt. One of the nurses was alerted and he was seen. documented in this encounter Plan of Treatment Upcoming Encounters Date Type Department Care Team (Late st Contact Info) Description 05/27/2024 10:00 AM EDT Office Visit Family [address] [place] [address] Keo Patrcik, [address] [place] [address] 06/10/2024 12:30 PM EST Office Visit Neurology [facility] [address] [place] [address] Nikki Santillan PA-C 21 [facility] [address] 06/25/2024 11:45 AM EST Office Visit Urology, [facility] 132 [facility] [place] [address] Alfredo Maguire MD [address] [place] [address] 07/10/2024 10:20 AM EST Office Visit Family Practice [address] [place] [address] 293 [place] [address] Keo Patrick, [address] [place] [address] Scheduled Procedures Name Priority Associated Diagnoses Date/Ti me COLONOSCOPY FLEXIBLE PROXIMAL DIAGNOSTIC Recall History of colon polyps Health Maintenance Due Date Last Done Comments Adult Wellness Visit 11/08/2017 11/08/2016 Influenza Vaccine (FLU shot) (#1) 2024 06/27/2021, 05/12/2016, 04/20/2015, Additional history exists CKD PHOS USE SMARTSET 41400 06/29/2024 12/0 07/2022, 06/28/2023, 06/27/2023, Additional history [...] Additional history exists CKD HGB USE SMARTSET 23800 05/12/202505/12, 05/12/2024, 11/01/2023, Additional history exists Depression [...] Documents on File Type Date Recorded Patient Sheriff Sergeant Expl anation Advance Directives and Living Will 05/13/2022 ADVANCE DIRECTIVE / LIVING WILL Power of Condenser Setter 05/13/2022 POWER OF A TTORNEY * Full [...] Care Agent (per Health Care Power of Condenser Setter document) Care Teams Billet Recorder Relationship Specialty Start Date End Date Keo Patrick DO [address] [place] [address] PCP - General Internal Medicine 03/04/24 documented as of this encounter
--- OUTSIDE RECORDS SUMMARY | 2024-05-24 04:57 | External Medical Summary ---
Author Name Unknown Address Unknown Organization : Laboratory Report Ordering Provider Test Date Status VASYL ELLIS 05/20/2024 12:54:27 Final Observation Date Value Abnormality Reference (Units ) Status Glucose Point of Care 05/20/2024 12:54:27 209 Above high normal 70-120 (mg/dL) Final Performing Location
[2024-05-24] MEDS: ATORVASTATIN 40 MG TAB PO SCH (08:01)
[2024-05-24] MEDS: FINASTERIDE 5 MG TAB PO SCH (08:01)
[2024-05-24] MEDS: TAMSULOSIN HCL 0.4 MG CAP PO SCH (08:01)
--- OUTSIDE RECORDS SUMMARY | 2024-05-24 08:12 | External Medical Summary | Summary of Care ---
Author Name Unknown Organization [facility] Address [address] [facility] [place] [address] Phone [phone] Care Team Providers Care [employer] Guidance Counselor Name Role Phone Keo Patrick DO Primary Care Provider [phone] Reason for Visit * Reason Onset Date Comments [facility]: Screening 05/23/2024 Encounter Details Date Type Department Care Team (Late st Contact Info) Description 05/23/2024 Telephone [facility], [facility] [address] [facility] [place] [phone] Doretha Smith LPN [address] [place] [address] [facility]: Screening Allergies No known active allergiesdocumented as of this encounter (statuses as of 05/23/2024) Medications Medication Sig Dispensed Refills Start Date [...] Tablet before bedtime. 200 Tablet 08/16/2023 Active Additional Information Patient taking differently: 5 mgOral BID (.AM/PM), Reported on 05/20/2024 metFORMIN HCl 1000 MG Oral Tablet (Glucophage)Indicat ions:Type 2 diabetes mellitus with hemoglobin A1c goal of less than 7.0% ([facility]),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 ([facility]) TAKE 1 TABLET BY MOUTH [...] Tablet (Eliquis)Indication s:Recurrent deep vein thrombosis (DVT) ([facility]) Take 1 Tablet by mouth [...] as of this encounter (statuses as of 05/23/2024) Active Problems Problem Noted Date Diagnosed Date [...] protocol #14. ICD-10 update of inactive term [facility] current use of anticoagulant therapy 0 08/05/2003 Overview: ICD-10 update of inactive term Varicose vein of leg documented as of this encounter (statuses as of 05/23/2024) Resolved Problems Problem Noted Date Diagnosed Date [...] as of this encounter (statuses as of 05/23/2024) Immunizations Name Administration Dates Next Due H1N1 [...] 05/12/2024 Does the household have a re lar source of income? (Household - for ages [...] encounter Miscellaneous Notes * Telephone Encounter - Doretha Smith LPN - 05/23/2024 1:02 PM EDT Neo Solis was referred as a potential candidate for enrollment for [facility]. A review of this chart was completed and: Neo meets criteria for [facility]. Jump to Initiation Referring care team was notified via : [employer] communication documented in this encounter Plan of Treatment Upcoming Encounters Date Type Department Care Team (Late st Contact Info) Description 05/23/2024 1:40 PM EDT Office Visit Family Practice [address] [place] [address] [address] [place] [address] Keo Patrick, 293 [place] [address] Arrived 05/27/2024 10:00 AM EDT Office Visit Family Practice 65 [facility] 293 [place] [address] Keo Patrick, [address] [place] [address], [place] [address] 06/10/2024 12:30 PM EST Office Visit Neurology [facility] [address] [place] [address] Nikki Santillan PA-C [address] [place] [address] 06/25/2024 11:45 AM EST Office Visit Urology, [facility] 132 [facility] [place] [address] Alfredo Maguire MD [address] [place] [address] 07/10/2024 10:20 AM EST Office Visit Family Practice [address] [place] [address] [address] [place] [address] Keo Patrick DO 293 [place] [address] Scheduled Procedures Name Priority Associated Diagnoses Date/Ti me COLONOSCOPY FLEXIBLE PROXIMAL DIAGNOSTIC Recall History of colon polyps Health Maintenance Due Date Last Done Comments Adult Wellness Visit 11/08/2017 11/08/2016 Influenza Vaccine (FLU shot) (#1) 2024 06/27/2021, 05/12/2016, 04/20/2015, Additional history exists CKD PHOS USE SMARTSET 82853 06/29/2024 12/0 07/2022, 06/28/2023, 06/27/2023, Additional history [...] Additional history exists CKD HGB USE SMARTSET 58338 05/12/202505/12, 05/12/2024, 11/01/2023, Additional history exists Depression [...] Documents on File Type Date Recorded 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
[2024-05-24 08:44] LABS: Appearance Urine Clear (Clear); Bacteria Urine Automated None Seen (None Seen); Bilirubin Urine Negative (Negative); Blood Urine Negative (Negative); Color Urine Dark Yellow; Epithelial Cell Urine Auto 0-2 /hpf (0-2); Glucose Urine UA Negative (Negative); Ketones Urine 1+ (Negative); Leukocyte Esterase Urine Negative (Negative); Nitrite Urine Negative (Negative); Protein Urine Trace (Negative); RBC Urine Automated 0-2 /hpf (0-2); Specific Gravity Urine 1.022 (1.000-1.030); Urobilinogen Urine Negative (Negative); WBC Urine Automated 0-5 /hpf (0-5)
[2024-05-24] MEDS ORDERED: DULoxetine HCL 30 MG CAP PO SCH (09:00)
[2024-05-24] MEDS ORDERED: NON-FORMULARY MEDICATION (Riboflavin (Vitamin B2) 400 mg tablet) PO SCH (09:00)
[2024-05-24 09:14] LABS: Amphetamines+Metham, Urine Neg (Neg); Barbiturates, Urine Neg (Neg); Benzodiazepine, Urine Neg (Neg); Cocaine, Urine Neg (Neg); Fentanyl, Urine Neg (Neg); MDMA (Ecstacy), Urine Neg (Neg); Marijuana, Urine Neg (Neg); Methadone, Urine Neg (Neg); Opiate, Urine Neg (Neg); Phencyclidine, Urine Neg (Neg)
[2024-05-24 09:48] LABS: Hematocrit (blood only) 32.4 % (42.0-52.0); Hemoglobin 11.1 g/dl (14.0-18.0); Mean Corpuscular Hemoglobin 30.4 pg (25.0-34.0); Mean Corpuscular Hgb Conc 34.3 g/dL (32.0-36.0); Mean Corpuscular Volume 88.8 fL (80.0-100.0); Mean Platelet Volume 10.1 fL (9.4-12.4); Platelet Count 99 K/uL (130-400); RDW Coefficient of Variation 15.4 % (11.5-14.5); RDW Standard Deviation 50.2 fL (36.4-46.3); Red Blood Count 3.65 M/uL (4.70-6.10); White Blood Count 7.29 K/ul (4.8-10.8)
[2024-05-24 10:02] LABS: BUN Creatinine Ratio 21.9 (10-20); Calcium 8.6 mg/dl (8.6-10.3); Creatinine Clr Calc Pharmacy 46.4 ml/min
--- NOTE | 2024-05-24 14:56 | Hospitalist Progress Note ---
Date of Service May 24, 2024 Assessment & Plan (1) Lethargy: (2) Weakness: (3) Acute dehydration: (4) Thrombocytopenia: (5) Dyslipidemia: (6) Type 2 diabetes mellitus: (7) Anemia: (8) Migraine: Plan Lethargy Concern for polypharmacy causing encephalopathy - Admitted to med tele -Holding gabapentin, Cymbalta -Monitor for pain control MAGY - Creatinine found to be 1.9 on admission, baseline appears to be 1.4-1.5, given 1 L NSS in the ER, continue with NS 125 x 2 more liters, encourage hydration orally and switch off IVs. - now Cr 1.5 - Avoid nephrotoxins renally reduce medications - monitor BMP Hx Acute/subacute right MCA territory cortical infarct Oct 10 -repeat head CT without acute findings, no bleed, may continue Eliquis -Patient presenting with lethargy, concern for too much gabapentin use as above -Delirium precautions. Frequent reorientation, avoid sedating medications as able -From last weekend, recs of Neurologist Dr Bipin Stallings, advised to discontinue aspirin and continue with Eliquis only. -PT/OT evals Thrombocytopenia -Plt 114 on admit, follow am labs Migraines Persistent Headache - Was on propranolol 10mg BID for preventative measures, dose decreased to 5mg BID in setting of bradycardia - Imitrex/sumatriptan prn abortive measures - per friend - this was not started yet (was not picked up from pharmacy) - Neurology consulted for further recs last admission : "Continue with gabapentin 600 mg twice daily at 300 mg. Cymbalta 30 mg daily, baclofen 5 mg daily x 3 days for cervicogenic element" Add magnesium 500 mg twice daily, riboflavin 400 mg daily. Okay with a small dose sumatriptan for migraine abortive treatment. - Possible that combination of these meds are adding to lethargy Uncontrolled hypertension -hydralazine prn with parameters for SBP greater than 180, propranolol 5mg BID, amlodipine was added Bradycardia - echo from previous admission in April noting EF 55 to 60%, mild left ventricular hypertrophy, grade 1 diastolic dysfunction, mild mitral regurgitation, left ventricular wall motion normal - propranolol was reduced during last admission as above - HR running in 50s Possible sleep apnea Breathing pauses -happens during sleep per pt's friend Montse -Nocturnal pulse ox. -advised to have full sleep study as OP in coordination Chronic Anemia - hgb 13.4, possibly concentrated with dehydration along with MAGY, follow - Recent anemia panel normal DM II - ISS with accuchecks achs - last A1C 8 DVT ppx: Isai FEN/GI: Heart healthy CODE: DNR/DNI Dispo: From home, likely to remain in the hospital x 1-2 days Admission and Anticipated Discharge Date Admission Date: May 23, 2024 Subjective Pt seen in follow up of weakness/ lethargy Currently laying in bed in NAD Denies fevers, chills, chest pain, shortness of breath, abd. pain, nausea Says he has a poor appetite and has not been eating or drinking much Pt's friend present at the bedside - reports pt was doing well initially after discharge from hospital, but then spent most time in his room and was not eating/drinking Review of Systems Review of Systems: All systems reviewed & are unremarkable except as noted in Subjective Physical Exam Physical Exam: General: awake, alert, no apparent distress Head: Normocephalic, atraumatic ENT: PERRL, EOMI Chest: Clear to auscultation, on room air, no adventitious breath sounds Cardiac: Regular rate and rhythm, + systolic murmur, no JVD Abdominal: NABS x 4 quadrants, soft, nondistended, nontender to palpation Extremities: Normal inspection, no peripheral edema or erythema Neuro: AAO x 3, speech fluent, no facial asymmetry, moves extremities Results & Data Results & Data Vital Signs (Past 12 Hours) Vital Signs Temp Pulse Pulse Resp BP Pulse Ox O2 Del Method 05/24/24 11:23 36.7 C 55 L 16 140/82 96 Room Air 05/24/24 07:28 36.7 C 61 16 158/96 H 98 Room Air 05/24/24 07:14 55 L 05/24/24 03:12 36.4 C L 57 L 18 168/85 H 94 Room Air Laboratory Results 05/24/24 05/24/24 05/24/24 Range/Units 11:53 09:25 08:15 WBC 7.29 (4.8-10.8) K/ul RBC 3.65 L (4.70-6.10) M/uL Hgb 11.1 L (14.0-18.0) g/dl Hct 32.4 L (42.0-52.0) % MCV 88.8 (80.0-100.0) fL MCH 30.4 (25.0-34.0) pg MCHC 34.3 (32.0-36.0) g/dL RDW Std Deviation 50.2 H (36.4-46.3) fL RDW Coeff of Aranza 15.4 H (11.5-14.5) % Plt Count 99 L (130-400) K/uL MPV 10.1 (9.4-12.4) fL Immature Gran % (Auto) % Neut % (Auto) % Lymph % (Auto) % [place] % (Auto) % Eos % (Auto) % Baso % (Auto) % Neut # (Auto) (1.40-6.50) K/uL Lymph # (Auto) (1.20-3.40) K/uL [place] # (Auto) (0.11-0.59) K/uL Eos # (Auto) (0.00-0.50) K/uL Baso # (Auto) (0.00-0.20) K/uL Immature Gran # (Auto) (0.01-0.20) K/uL PT (9.0-12.0) Seconds INR (0.9-1.1) APTT (21-31) Seconds PTT Ratio Sodium 141 (136-145) mmol/L Potassium 5.0 (3.5-5.1) mmol/L Chloride 110 H (98-107) mmol/L Carbon Dioxide 26 (21-32) mmol/L Anion Gap 5 (3-11) BUN 32 H (6-23) mg/dl Creatinine 1.46 H D (0.6-1.4) mg/dl Est Cr Clr Drug Dosing 46.4 eGFR 49.84 BUN/Creatinine Ratio 21.9 H (10-20) Glucose 127 H (70-99(Fasting)) mg/dl POC Glucose 126 H 143 H (70-99) mg/dl Calcium 8.6 (8.6-10.3) mg/dl Magnesium (1.7-2.4) mg/dl Total Bilirubin (0.2-1.0) mg/dl AST (13-39) U/L ALT (7-52) U/L Alkaline Phosphatase (34-104) U/L Troponin I High Sens (0-20) pg/ml Total Protein (6.0-8.3) gm/dl Albumin (3.4-5.0) gm/dl Globulin (2.5-4.0) gm/dl Albumin/Globulin Ratio (0.9-2) Lipase (11-82) U/L TSH (0.300-4.500) uIu/ml Urine Color Urine Appearance (Clear) Urine pH (4.5-7.5) Ur Specific [place] (1.000-1.030) Urine Protein (Negative) Urine Glucose (UA) (Negative) Urine Ketones (Negative) Urine Blood (Negative) Urine Nitrite (Negative) Urine Bilirubin (Negative) Urine Urobilinogen (Negative) Ur Leukocyte Esterase (Negative) Urine WBC (Auto) (0-5) /hpf Urine RBC (Auto) (0-2) /hpf U Hyaline Cast (Auto) (0-2) /lpf U Epithel Cells (Auto) (0-2) /hpf Urine Bacteria (Auto) (None Seen) Urine Opiates Screen (Neg) Ur Methadone, Qual (Neg) Urine Fentanyl Screen (Neg) Urine Barbiturates (Neg) Ur Phencyclidine (PCP) (Neg) U Amphetamin/Meth Scrn (Neg) MDMA (Ecstasy) Screen (Neg) U Benzodiazepines Scrn (Neg) Ur Cocaine Metabolite (Neg) U Marijuana (THC) Screen (Neg) SARS-CoV-2, RNA, NAAT (NEGATIVE) 05/24/24 05/23/24 05/23/24 Range/Units 08:05 20:21 15:33 WBC (4.8-10.8) K/ul RBC (4.70-6.10) M/uL Hgb (14.0-18.0) g/dl Hct (42.0-52.0) % MCV (80.0-100.0) fL MCH (25.0-34.0) pg MCHC (32.0-36.0) g/dL RDW Std Deviation (36.4-46.3) fL RDW Coeff of Aranza (11.5-14.5) % Plt Count (130-400) K/uL MPV (9.4-12.4) fL Immature Gran % (Auto) % Neut % (Auto) % Lymph % (Auto) % [place] % (Auto) % Eos % (Auto) % Baso % (Auto) % Neut # (Auto) (1.40-6.50) K/uL Lymph # (Auto) (1.20-3.40) K/uL [place] # (Auto) (0.11-0.59) K/uL Eos # (Auto) (0.00-0.50) K/uL Baso # (Auto) (0.00-0.20) K/uL Immature Gran # (Auto) (0.01-0.20) K/uL PT (9.0-12.0) Seconds INR (0.9-1.1) APTT (21-31) Seconds PTT Ratio Sodium (136-145) mmol/L Potassium (3.5-5.1) mmol/L Chloride (98-107) mmol/L Carbon Dioxide (21-32) mmol/L Anion Gap (3-11) BUN (6-23) mg/dl Creatinine (0.6-1.4) mg/dl Est Cr Clr Drug Dosing eGFR BUN/Creatinine Ratio (10-20) Glucose (70-99(Fasting)) mg/dl POC Glucose 144 H (70-99) mg/dl Calcium (8.6-10.3) mg/dl Magnesium (1.7-2.4) mg/dl Total Bilirubin (0.2-1.0) mg/dl AST (13-39) U/L ALT (7-52) U/L Alkaline Phosphatase (34-104) U/L Troponin I High Sens (0-20) pg/ml Total Protein (6.0-8.3) gm/dl Albumin (3.4-5.0) gm/dl Globulin (2.5-4.0) gm/dl Albumin/Globulin Ratio (0.9-2) Lipase (11-82) U/L TSH (0.300-4.500) uIu/ml Urine Color Dark Yellow Urine Appearance Clear (Clear) Urine pH 5.0 (4.5-7.5) Ur Specific [place] 1.022 (1.000-1.030) Urine Protein Trace H (Negative) Urine Glucose (UA) Negative (Negative) Urine Ketones 1+ H (Negative) Urine Blood Negative (Negative) Urine Nitrite Negative (Negative) Urine Bilirubin Negative (Negative) Urine Urobilinogen Negative (Negative) Ur Leukocyte Esterase Negative (Negative) Urine WBC (Auto) 0-5 (0-5) /hpf Urine RBC (Auto) 0-2 (0-2) /hpf U Hyaline Cast (Auto) 3-5 H (0-2) /lpf U Epithel Cells (Auto) 0-2 (0-2) /hpf Urine Bacteria (Auto) None Seen (None Seen) Urine Opiates Screen Neg (Neg) Ur Methadone, Qual Neg (Neg) Urine Fentanyl Screen Neg (Neg) Urine Barbiturates Neg (Neg) Ur Phencyclidine (PCP) Neg (Neg) U Amphetamin/Meth Scrn Neg (Neg) MDMA (Ecstasy) Screen Neg (Neg) U Benzodiazepines Scrn Neg (Neg) Ur Cocaine Metabolite Neg (Neg) U Marijuana (THC) Screen Neg (Neg) SARS-CoV-2, RNA, NAAT NEGATIVE (NEGATIVE) 05/23/24 Range/Units 15:19 WBC 8.54 (4.8-10.8) K/ul RBC 4.38 L (4.70-6.10) M/uL Hgb 13.4 L (14.0-18.0) g/dl Hct 39.6 L (42.0-52.0) % MCV 90.4 (80.0-100.0) fL MCH 30.6 (25.0-34.0) pg MCHC 33.8 (32.0-36.0) g/dL RDW Std Deviation 50.6 H (36.4-46.3) fL RDW Coeff of Aranza 15.4 H (11.5-14.5) % Plt Count 114 L (130-400) K/uL MPV 10.3 (9.4-12.4) fL Immature Gran % (Auto) 1.3 % Neut % (Auto) 81.8 % Lymph % (Auto) 10.3 % [place] % (Auto) 5.2 % Eos % (Auto) 0.8 % Baso % (Auto) 0.6 % Neut # (Auto) 6.99 H (1.40-6.50) K/uL Lymph # (Auto) 0.88 L (1.20-3.40) K/uL [place] # (Auto) 0.44 (0.11-0.59) K/uL Eos # (Auto) 0.07 (0.00-0.50) K/uL Baso # (Auto) 0.05 (0.00-0.20) K/uL Immature Gran # (Auto) 0.11 (0.01-0.20) K/uL PT 11.4 (9.0-12.0) Seconds INR 1.1 (0.9-1.1) APTT 33 H (21-31) Seconds PTT Ratio 1.2 Sodium 138 (136-145) mmol/L Potassium 5.2 H (3.5-5.1) mmol/L Chloride 103 (98-107) mmol/L Carbon Dioxide 26 (21-32) mmol/L Anion Gap 9 (3-11) BUN 35 H (6-23) mg/dl Creatinine 1.91 H (0.6-1.4) mg/dl Est Cr Clr Drug Dosing Not Reportable eGFR 36.10 BUN/Creatinine Ratio 18.3 (10-20) Glucose 190 H (70-99(Fasting)) mg/dl POC Glucose (70-99) mg/dl Calcium 9.8 (8.6-10.3) mg/dl Magnesium 2.2 (1.7-2.4) mg/dl Total Bilirubin 1.0 (0.2-1.0) mg/dl AST 25 (13-39) U/L ALT 21 (7-52) U/L Alkaline Phosphatase 81 (34-104) U/L Troponin I High Sens 4.6 (0-20) pg/ml Total Protein 7.4 (6.0-8.3) gm/dl Albumin 4.6 (3.4-5.0) gm/dl Globulin 2.8 (2.5-4.0) gm/dl Albumin/Globulin Ratio 1.6 (0.9-2) Lipase 32 (11-82) U/L TSH 2.852 (0.300-4.500) uIu/ml Urine Color Urine Appearance (Clear) Urine pH (4.5-7.5) Ur Specific [place] (1.000-1.030) Urine Protein (Negative) Urine Glucose (UA) (Negative) Urine Ketones (Negative) Urine Blood (Negative) Urine Nitrite (Negative) Urine Bilirubin (Negative) Urine Urobilinogen (Negative) Ur Leukocyte Esterase (Negative) Urine WBC (Auto) (0-5) /hpf Urine RBC (Auto) (0-2) /hpf U Hyaline Cast (Auto) (0-2) /lpf U Epithel Cells (Auto) (0-2) /hpf Urine Bacteria (Auto) (None Seen) Urine Opiates Screen (Neg) Ur Methadone, Qual (Neg) Urine Fentanyl Screen (Neg) Urine Barbiturates (Neg) Ur Phencyclidine (PCP) (Neg) U Amphetamin/Meth Scrn (Neg) MDMA (Ecstasy) Screen (Neg) U Benzodiazepines Scrn (Neg) Ur Cocaine Metabolite (Neg) U Marijuana (THC) Screen (Neg) SARS-CoV-2, RNA, NAAT (NEGATIVE) Medications Administered Current Inpatient Medications Acetaminophen (Acetaminophen 325 Mg Tab) 650 mg PO Q4H PRN PRN Reason: Moderate Pain (Scale 4, 5, 6) Stop: 06/22/24 18:34 Last Admin: 05/23/24 19:33 Dose: 650 mg Apixaban (Apixaban 5 Mg Tablet) 5 mg PO BID [facility] Stop: 06/22/24 20:59 Last Admin: 05/24/24 08:01 Dose: 5 mg Atorvastatin Calcium (Atorvastatin 40 Mg Tab) 40 mg PO QAM WILMER Stop: 06/23/24 08:59 Last Admin: 05/24/24 08:01 Dose: 40 mg Dextrose (Dextrose 50% 50 Ml Syringe) 25 - 50 ml IV UD PRN; Protocol PRN Reason: Hypoglycemia Protocol Stop: 06/22/24 18:34 Docusate Sodium (Docusate Sodium 100 Mg Cap) 100 mg PO Q2D WILMER Stop: 06/22/24 18:59 Last Admin: 05/23/24 21:08 Dose: 100 mg Duloxetine HCl (Duloxetine Hcl 30 Mg Cap) 30 mg PO QAM WILMER Stop: 06/23/24 08:59 Finasteride (Finasteride 5 Mg Tab) 5 mg PO QAM WILMER Stop: 06/23/24 08:59 Last Admin: 05/24/24 08:01 Dose: 5 mg Gabapentin (Gabapentin 300 Mg Cap) 300 mg PO TID WILMER Stop: 06/22/24 20:59 Glucagon (Glucagon For Inj 1 Mg Vial) 1 mg SQ UD PRN; Protocol PRN Reason: Hypoglycemia Protocol Stop: 06/22/24 18:34 Glucose (Glucose 40% Gel 15 Gm Tube) 15 - 30 gm PO UD PRN; Protocol PRN Reason: Hypoglycemia Protocol Stop: 06/22/24 18:34 Glucose (Glucose 10 Tab/Tube) 4 - 8 tab PO UD PRN; Protocol PRN Reason: Hypoglycemia Protocol Stop: 06/22/24 18:34 Insulin Aspart (Insulin Aspart Per Unit Charge) 0 units SC ACHS WILMER Stop: 06/22/24 20:59 Last Admin: 05/24/24 12:52 Dose: Not Given Magnesium Oxide (Magnesium Oxide 400 Mg Tab) 400 mg PO BID WILMER Stop: 06/22/24 20:59 Last Admin: 05/24/24 08:01 Dose: 400 mg Miscellaneous (Carbohydrates For Hypoglycemia ) 15 - 30 gm PO UD PRN PRN Reason: Hypoglycemia Protocol Stop: 06/22/24 18:34 Ondansetron HCl (Ondansetron Inj 2 Mg/Ml 2 Ml Vial) 4 mg IV Q4H PRN PRN Reason: Nausea And Vomiting Stop: 06/22/24 18:34 Propranolol HCl (Propranolol Hcl 10 Mg Tab) 5 mg PO BID [facility] Stop: 06/22/24 20:59 Last Admin: 05/24/24 08:02 Dose: 5 mg Sumatriptan Succinate (Sumatriptan Succinate 25 Mg Tab) 25 mg PO PRN PRN PRN Reason: Headache Stop: 06/22/24 18:34 Tamsulosin HCl (Tamsulosin Hcl 0.4 Mg Cap) 0.4 mg PO QAM [facility] Stop: 06/23/24 08:59 Last Admin: 05/24/24 08:01 Dose: 0.4 mg (7) Anemia Anemia type: unspecified type Qualified Code(s): D64.9 - Anemia, unspecified
[2024-05-25] MEDS: SUMAtriptan succinate 25 MG TAB PO PRN (09:21)
[2024-05-25 09:31] LABS: BUN Creatinine Ratio 21.2 (10-20); Creatinine Clr Calc Pharmacy 49.5 ml/min; Magnesium 1.8 mg/dl (1.7-2.4); Phosphorus 3.4 mg/dl (2.5-4.9); Potassium 4.4 mmol/L (3.5-5.1)
[2024-05-25 09:45] LABS: Hematocrit (blood only) 33.5 % (42.0-52.0); Hemoglobin 11.4 g/dl (14.0-18.0); Mean Corpuscular Hemoglobin 30.6 pg (25.0-34.0); Mean Corpuscular Volume 89.8 fL (80.0-100.0); Mean Platelet Volume 10.2 fL (9.4-12.4); Platelet Count 108 K/uL (130-400); RDW Coefficient of Variation 15.2 % (11.5-14.5); RDW Standard Deviation 49.3 fL (36.4-46.3); Red Blood Count 3.73 M/uL (4.70-6.10); White Blood Count 7.33 K/ul (4.8-10.8)
--- NOTE | 2024-05-25 11:15 | Neurology Consultation ---
Date of Consultation May 25, 2024 Assessment & Plan (1) Cephalgia: Daily ongoing cephalgia and lethargy in setting of suspected JACOB and chronic anemia Recommend check CPK level to eval for possible rhabdo as he is on a statin Continue to monitor renal and hepatic function, keep euvolemic Recommend decrease gabapentin dosing by half, suspect he may not need this medication prison Agree with decrease in beta sheeba dosing as he presented bradycardic- notably beta sheeba may also be contributing to lethargy Recommend overnight pulse oximetry testing and consider positive airway pressure mask QHS while hospitalized Agree with plan for outpatient polysomnography Recommend continue frequent neurological assessments Obtain stat CT brain without contrast for any acute neurological decline Continue to monitor/control blood pressure & blood glucose Recommend monitor orthostatic BP as patient bradycardic and also prescribed alpha sheeba Continue to monitor telemetry closely Continue full anticoagulation Monitor for s/s of hemorrhage Telehealth Consultation Telehealth Information Telehealth Information: I performed this visit using a real-time telehealth connection between my location and the patients location ([facility]). After connecting through interactive tele-video, patient was identified by name and date of and/or wristband check.Patient (or authorized healthcare sales representative [employer]) was informed that this was a telemedicine visit and it was being conducted confidentially over secure lines. My office door was closed and no one else was present in the room with me.Patient (or authorized healthcare sales representative [employer]) provided consent to proceed with the visit, expressed an understanding of privacy and security of the telemedicine visit, and gave permission to have a hospital sales representative [employer] in the room in order to assist with the visit and to conduct portions of the visit, as needed. I informed the patient (or authorized healthcare sales representative [employer]) that I reviewed their record and presented the opportunity for them to ask any questions regarding the visit today. The patient agreed to participate. History of Present Illness Reason for Consultation: Headache/lethargy Requesting Physician: Dr. 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 He was seen by Neurology in consultation for headache approx 2 weeks ago and now presents again due to headache and lethargy. He is taking gabapentin and there is concern may be worsening lethargy. He denies muscle pain. No reported recent injury. He has undergone CT brain without contrast revealing no overt evidence of hemorrhage. He was diagnosed with acute to subacute stroke last admit right MCA territory. There is no notable left hemibody symptoms. Agree with continued full anticoagulation given hx DVT/PE unfortunately his anemia is likely contributing to ongoing lethargy and has notable worsened renal at presentation this admission. I have performed televideo consultation. He is alert & oriented; able to answer all questions appropriately, name objects on televideo monitor, repeat phrases and perform complex/embedded commands without deficit. Neurological exam is non lateralizing/nonfocal in terms of motor strength and coordination. Allergies Allergy/AdvReac Type Severity Reaction Status Date / Time No Known Allergies Allergy Verified 05/15/24 15:38 Home Medications Medication Instructions Recorded Confirmed Type apixaban 5 mg tablet (Eliquis) 5 mg PO BID 30 days #60 tabs 02/02/21 05/23/24 Rx metformin 1,000 mg tablet 1,000 mg PO BIDM 02/12/21 05/23/24 History atorvastatin 40 mg tablet (Lipitor) 40 mg PO QAM 03/29/21 05/23/24 History gabapentin 300 mg capsule 300 mg PO TID 03/29/21 05/23/24 History (Neurontin) tamsulosin 0.4 mg capsule 0.4 mg PO QAM 08/23/22 05/23/24 History finasteride 5 mg tablet 5 mg PO QAM 05/08/24 05/23/24 History docusate sodium 100 mg capsule 100 mg PO Q OTHER DAY 05/15/24 05/23/24 History (Stool Softener) duloxetine 30 mg capsule,delayed 30 mg PO QAM #30 caps 05/19/24 05/23/24 Rx release magnesium 250 mg tablet 500 mg (2 x 250 mg) PO BID #120 05/19/24 05/23/24 Rx tabs propranolol 10 mg tablet 5 mg (1/2 x 10 mg) PO BID #15 tabs 05/19/24 05/23/24 Rx riboflavin (vitamin B2) 400 mg 400 mg PO DAILY #30 tabs 05/19/24 05/23/24 Rx tablet sumatriptan succinate 25 mg tablet 25 mg PO UD PRN Headache 05/23/24 05/23/24 History Patient History Medical History Knee pain, right MAGY (acute kidney injury) Weakness MAGY (acute kidney injury) Elevated troponin Anemia Kidney stones Stroke 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 ischemic stroke, residual mild weakness and short- term memory impairment Pulmonary embolism 1993- Eliquis Hydronephrosis with urinary obstruction due to ureteral calculus Hypertension Surgical History History of back surgery No hardware History of cystoscopy Cystoscopy, left retropyelogram, Left ureteral stent placement (03/30/21): LMA#4 at [facility] H/O colonoscopy History of tympanoplasty of right ear Status post appendectomy Family History Uncle Family history of diabetes mellitus Other Heart disease Social History Smoking Status: Former smoker Tobacco Type: Declines Second Hand Exposure: No; Do You Dip or Chew Tobacco: No; Hx Alcohol Use: No Hx Substance Use: No Preferred Language: Citizen Of [place] Communication Ability: Effective Logistics/Shipper Required: No Beliefs That Will Affect Care: None marital status: / Current Living Situation: Other Current Living Situation Comment: lives at home with friends current occupation: NOT WORKING How many Children do You have: 0 Other Information That Helps Us Care for You: No Feels Safe at Home: Yes Safety Concerns: Feels Safe At This Time Assistive Devices: None Physical Exam Neurological Examination: Mental Status: Awake and alert. Oriented to person, place, and time. Fluency naming repetition and comprehension appear grossly intact. Affect remains appropriate. CN testing: I: Denies changes in ability to smell II:Reports no changes in visual acuity III/IV/: No evidence of gaze preference, hippus, nystagmus or roving eye movements V: Facial sensation reportedly grossly intact to light touch bilaterally VII: Facial movements appear without evidence of asymmetry VIII: Hearing appears grossly intact to loud voice bilaterally IX/X: Palate appears to elevate symmetrically XI: Shoulder shrug appears symmetric/ grossly intact bilaterally XII: Tongue protrudes midline without evidence of biting Motor exam: Strength appears grossly intact/symmetric in all extremities Sensory: Sensation is reportedly grossly intact throughout Coordination: Finger to nose and heel to summers were intact. No apparent evidence of dysmetria or dysdiadochokinesia Reflexes: Deferred Gait: Deferred Results & Data Vital Signs (Past 12 Hours) Vital Signs Temp Pulse Pulse Resp BP Pulse Ox O2 Del Method 05/25/24 07:24 36.8 C 68 16 138/77 95 Room Air 05/25/24 07:12 65 05/25/24 03:10 36.4 C L 62 18 141/79 H 95 Room Air Laboratory Results Abnormal lab results 05/24/24 05/24/24 05/24/24 Range/Units 11:53 16:43 20:40 RBC (4.70-6.10) M/uL Hgb (14.0-18.0) g/dl Hct (42.0-52.0) % RDW Std Deviation (36.4-46.3) fL RDW Coeff of Aranza (11.5-14.5) % Plt Count (130-400) K/uL Chloride (98-107) mmol/L BUN (6-23) mg/dl BUN/Creatinine Ratio (10-20) Glucose (70-99(Fasting)) mg/dl POC Glucose 126 H 132 H 116 H (70-99) mg/dl 05/25/24 05/25/24 Range/Units 08:02 08:07 RBC 3.73 L (4.70-6.10) M/uL Hgb 11.4 L (14.0-18.0) g/dl Hct 33.5 L (42.0-52.0) % RDW Std Deviation 49.3 H (36.4-46.3) fL RDW Coeff of Aranza 15.2 H (11.5-14.5) % Plt Count 108 L (130-400) K/uL Chloride 108 H (98-107) mmol/L BUN 29 H (6-23) mg/dl BUN/Creatinine Ratio 21.2 H (10-20) Glucose 101 H (70-99(Fasting)) mg/dl POC Glucose 105 H (70-99) mg/dl Medications Administered Home Medications Medication Instructions Recorded Confirmed Last Taken apixaban 5 mg tablet (Eliquis) 5 mg PO BID 30 days #60 tabs 02/02/21 05/23/24 06/26/23 09:00 metformin 1,000 mg tablet 1,000 mg PO BIDM 02/12/21 05/23/24 06/26/23 09:00 atorvastatin 40 mg tablet (Lipitor) 40 mg PO QAM 03/29/21 05/23/24 08/02/22 gabapentin 300 mg capsule 300 mg PO TID 03/29/21 05/23/24 06/26/23 09:00 (Neurontin) tamsulosin 0.4 mg capsule 0.4 mg PO QAM 08/23/22 05/23/24 06/26/23 09:00 finasteride 5 mg tablet 5 mg PO QAM 05/08/24 05/23/24 Unknown docusate sodium 100 mg capsule 100 mg PO Q OTHER DAY 05/15/24 05/23/24 Unknown (Stool Softener) duloxetine 30 mg capsule,delayed 30 mg PO QAM #30 caps 05/19/24 05/23/24 Unknown release magnesium 250 mg tablet 500 mg (2 x 250 mg) PO BID #120 05/19/24 05/23/24 Unknown tabs propranolol 10 mg tablet 5 mg (1/2 x 10 mg) PO BID #15 tabs 05/19/24 05/23/24 Un known riboflavin (vitamin B2) 400 mg 400 mg PO DAILY #30 tabs 05/19/24 05/23/24 Unknown tablet sumatriptan succinate 25 mg tablet 25 mg PO UD PRN Headache 05/23/24 05/23/24 Unknown Active Medications Generic Name Dose Route Start Last Admin Trade Name Freq PRN Reason Stop Dose Admin Acetaminophen 650 mg 05/23/24 18:35 05/25/24 06:11 Acetaminophen 325 Mg Tab PO 06/22/24 18:34 650 mg Q4H PRN Administration Moderate Pain (Scale 4, 5, 6) Apixaban 5 mg 05/23/24 21:00 05/25/24 08:19 Apixaban 5 Mg Tablet PO 06/22/24 20:59 5 mg BID WILMER Administration Atorvastatin Calcium 40 mg 05/24/24 09:00 05/25/24 08:18 Atorvastatin 40 Mg Tab PO 06/23/24 08:59 40 mg QAM WILMER Administration Docusate Sodium 100 mg 05/23/24 19:00 05/23/24 21:08 Docusate Sodium 100 Mg Cap PO 06/22/24 18:59 100 mg Q2D WILMER Administration Finasteride 5 mg 05/24/24 09:00 05/25/24 08:18 Finasteride 5 Mg Tab PO 06/23/24 08:59 5 mg QAM WILMER Administration Insulin Aspart 0 units 05/23/24 21:00 05/25/24 09:20 Insulin Aspart Per Unit Charge SC 06/22/24 20:59 2 units ACHS WILMER Administration Magnesium Oxide 400 mg 05/23/24 21:00 05/25/24 08:18 Magnesium Oxide 400 Mg Tab PO 06/22/24 20:59 400 mg BID WILMER Administration Propranolol HCl 5 mg 05/23/24 21:00 05/25/24 08:17 Propranolol Hcl 10 Mg Tab PO 06/22/24 20:59 5 mg BID WILMER Administration Sumatriptan Succinate 25 mg 05/23/24 18:35 05/25/24 09:21 Sumatriptan Succinate 25 Mg Tab PO 06/22/24 18:34 25 mg PRN PRN Administration Headache Tamsulosin HCl 0.4 mg 05/24/24 09:00 05/25/24 08:18 Tamsulosin Hcl 0.4 Mg Cap PO 06/23/24 08:59 0.4 mg QAM WILMER Administration
[2024-05-25] MEDS: MAGNESIUM SULFATE / D5W 1 GM/100 ML BAG IV ONE (12:12)
--- NOTE | 2024-05-25 16:00 | Hospitalist Progress Note ---
Date of Service May 25, 2024 Assessment & Plan (1) Lethargy: (2) Weakness: (3) Acute dehydration: (4) Dyslipidemia: (5) Type 2 diabetes mellitus: (6) Migraine: Plan Lethargy Concern for polypharmacy causing encephalopathy - Admitted to med tele -Holding gabapentin, Cymbalta -> plan to resume at lower levels -Monitor for pain control MAGY - Creatinine found to be 1.9 on admission, baseline appears to be 1.4-1.5, given 1 L NSS in the ER, continue with NS 125 x 2 more liters, encourage hydration orally and switch off IVs. - improved to Cr 1.5 -> 1.4 - Avoid nephrotoxins renally reduce medications - monitor BMP Hx Acute/subacute right MCA territory cortical infarct Oct 10 -repeat head CT without acute findings, no bleed, may continue Eliquis -Patient presenting with lethargy, concern for too much gabapentin use as above -Delirium precautions. Frequent reorientation, avoid sedating medications as able -From last weekend, recs of Neurologist Dr Bipin Stallings, advised to discontinue aspirin and continue with Eliquis only. -PT/OT evals Thrombocytopenia -Plt 114 on admit, follow am labs Migraines Persistent Headache - Was on propranolol 10mg BID for preventative measures, dose decreased to 5mg BID in setting of bradycardia - Imitrex/sumatriptan prn abortive measures - per friend - this was not started yet (was not picked up from pharmacy) - Neurology consulted for further recs last admission : "Continue with gabapentin 600 mg twice daily at 300 mg. Cymbalta 30 mg daily, baclofen 5 mg daily x 3 days for cervicogenic element" Add magnesium 500 mg twice daily, riboflavin 400 mg daily. Okay with a small dose sumatriptan for migraine abortive treatment. - Possible that combination of these meds are adding to lethargy Neurology again consulted - will obtain nocturnal hypoxia study (should get polysomnography study done as outpt), reduce dose of gabapentin Psychiatry liaison was also consulted for poss. depression/ poor appetite Uncontrolled hypertension -hydralazine prn with parameters for SBP greater than 180, propranolol 5mg BID, amlodipine was added Bradycardia - echo from previous admission in April noting EF 55 to 60%, mild left ventricular hypertrophy, grade 1 diastolic dysfunction, mild mitral regurgitation, left ventricular wall motion normal - propranolol was reduced during last admission as above - HR running in 50s Possible sleep apnea Breathing pauses -happens during sleep per pt's friend Montse -Nocturnal pulse ox. -advised to have full sleep study as OP in coordination Chronic Anemia - hgb 13.4, possibly concentrated with dehydration along with MAGY, follow - Recent anemia panel normal DM II - ISS with accuchecks achs - last A1C 8 DVT ppx: Eliquis FEN/GI: Heart healthy CODE: DNR/DNI Dispo: From home, likely DC tmrw Admission and Anticipated Discharge Date Admission Date: May 24, 2024 Subjective Pt seen in follow up of weakness/ lethargy Currently laying in bed in NAD Denies fevers, chills, chest pain, shortness of breath, abd. pain, nausea Today he ate breakfast and lunch, he also walked in hallway with PT. Pt's friend present at the bedside. Pt seen by psych liaison yesterday, today seen by neurology - plan for nocturnal hypoxia study, CPK level Review of Systems Review of Systems: All systems reviewed & are unremarkable except as noted in Subjective Physical Exam Physical Exam: General: awake, alert, no apparent distress Head: Normocephalic, atraumatic ENT: PERRL, EOMI Chest: Clear to auscultation, on room air, no adventitious breath sounds Cardiac: Regular rate and rhythm, + systolic murmur, no JVD Abdominal: NABS x 4 quadrants, soft, nondistended, nontender to palpation Extremities: Normal inspection, no peripheral edema or erythema Neuro: AAO x 3, speech fluent, no facial asymmetry, moves extremities Results & Data Results & Data Vital Signs (Past 12 Hours) Vital Signs Temp Pulse Pulse Resp BP Pulse Ox O2 Del Method 05/25/24 15:15 36.6 C 69 18 138/88 96 Room Air 05/25/24 14:19 68 05/25/24 11:17 36.7 C 68 18 126/87 95 Room Air 05/25/24 07:24 36.8 C 68 16 138/77 95 Room Air 05/25/24 07:12 65 Laboratory Results 05/25/24 05/25/24 05/25/24 Range/Units 11:48 08:07 08:02 WBC 7.33 (4.8-10.8) K/ul RBC 3.73 L (4.70-6.10) M/uL Hgb 11.4 L (14.0-18.0) g/dl Hct 33.5 L (42.0-52.0) % MCV 89.8 (80.0-100.0) fL MCH 30.6 (25.0-34.0) pg MCHC 34.0 (32.0-36.0) g/dL RDW Std Deviation 49.3 H (36.4-46.3) fL RDW Coeff of Aranza 15.2 H (11.5-14.5) % Plt Count 108 L (130-400) K/uL MPV 10.2 (9.4-12.4) fL Sodium 140 (136-145) mmol/L Potassium 4.4 (3.5-5.1) mmol/L Chloride 108 H (98-107) mmol/L Carbon Dioxide 25 (21-32) mmol/L Anion Gap 7 (3-11) BUN 29 H (6-23) mg/dl Creatinine 1.37 (0.6-1.4) mg/dl Est Cr Clr Drug Dosing 49.5 ml/min eGFR 53.80 BUN/Creatinine Ratio 21.2 H (10-20) Glucose 101 H (70-99(Fasting)) mg/dl POC Glucose 165 H 105 H (70-99) mg/dl Calcium 9.0 (8.6-10.3) mg/dl Phosphorus 3.4 (2.5-4.9) mg/dl Magnesium 1.8 (1.7-2.4) mg/dl 05/24/24 05/24/24 Range/Units 20:40 16:43 WBC (4.8-10.8) K/ul RBC (4.70-6.10) M/uL Hgb (14.0-18.0) g/dl Hct (42.0-52.0) % MCV (80.0-100.0) fL MCH (25.0-34.0) pg MCHC (32.0-36.0) g/dL RDW Std Deviation (36.4-46.3) fL RDW Coeff of Aranza (11.5-14.5) % Plt Count (130-400) K/uL MPV (9.4-12.4) fL Sodium (136-145) mmol/L Potassium (3.5-5.1) mmol/L Chloride (98-107) mmol/L Carbon Dioxide (21-32) mmol/L Anion Gap (3-11) BUN (6-23) mg/dl Creatinine (0.6-1.4) mg/dl Est Cr Clr Drug Dosing ml/min eGFR BUN/Creatinine Ratio (10-20) Glucose (70-99(Fasting)) mg/dl POC Glucose 116 H 132 H (70-99) mg/dl Calcium (8.6-10.3) mg/dl Phosphorus (2.5-4.9) mg/dl Magnesium (1.7-2.4) mg/dl Medications Administered Current Inpatient Medications Acetaminophen (Acetaminophen 325 Mg Tab) 650 mg PO Q4H PRN PRN Reason: Moderate Pain (Scale 4, 5, 6) Stop: 06/22/24 18:34 Last Admin: 05/25/24 12:12 Dose: 650 mg Apixaban (Apixaban 5 Mg Tablet) 5 mg PO BID [facility] Stop: 06/22/24 20:59 Last Admin: 05/25/24 08:19 Dose: 5 mg Atorvastatin Calcium (Atorvastatin 40 Mg Tab) 40 mg PO QAM [facility] Stop: 06/23/24 08:59 Last Admin: 05/25/24 08:18 Dose: 40 mg Dextrose (Dextrose 50% 50 Ml Syringe) 25 - 50 ml IV UD PRN; Protocol PRN Reason: Hypoglycemia Protocol Stop: 06/22/24 18:34 Docusate Sodium (Docusate Sodium 100 Mg Cap) 100 mg PO Q2D [facility] Stop: 06/22/24 18:59 Last Admin: 05/23/24 21:08 Dose: 100 mg Duloxetine HCl (Duloxetine Hcl 30 Mg Cap) 30 mg PO QAM [facility] Stop: 06/23/24 08:59 Finasteride (Finasteride 5 Mg Tab) 5 mg PO QAM [facility] Stop: 06/23/24 08:59 Last Admin: 05/25/24 08:18 Dose: 5 mg Gabapentin (Gabapentin 300 Mg Cap) 300 mg PO TID [facility] Stop: 06/22/24 20:59 Glucagon (Glucagon For Inj 1 Mg Vial) 1 mg SQ UD PRN; Protocol PRN Reason: Hypoglycemia Protocol Stop: 06/22/24 18:34 Glucose (Glucose 40% Gel 15 Gm Tube) 15 - 30 gm PO UD PRN; Protocol PRN Reason: Hypoglycemia Protocol Stop: 06/22/24 18:34 Glucose (Glucose 10 Tab/Tube) 4 - 8 tab PO UD PRN; Protocol PRN Reason: Hypoglycemia Protocol Stop: 06/22/24 18:34 Insulin Aspart (Insulin Aspart Per Unit Charge) 0 units SC ACHS [facility] Stop: 06/22/24 20:59 Last Admin: 05/25/24 13:05 Dose: 7 units Magnesium Oxide (Magnesium Oxide 400 Mg Tab) 400 mg PO BID [facility] Stop: 06/22/24 20:59 Last Admin: 05/25/24 08:18 Dose: 400 mg Miscellaneous (Carbohydrates For Hypoglycemia ) 15 - 30 gm PO UD PRN PRN Reason: Hypoglycemia Protocol Stop: 06/22/24 18:34 Ondansetron HCl (Ondansetron Inj 2 Mg/Ml 2 Ml Vial) 4 mg IV Q4H PRN PRN Reason: Nausea And Vomiting Stop: 06/22/24 18:34 Propranolol HCl (Propranolol Hcl 10 Mg Tab) 5 mg PO BID [facility] Stop: 06/22/24 20:59 Last Admin: 05/25/24 08:17 Dose: 5 mg Sumatriptan Succinate (Sumatriptan Succinate 25 Mg Tab) 25 mg PO PRN PRN PRN Reason: Headache Stop: 06/22/24 18:34 Last Admin: 05/25/24 09:21 Dose: 25 mg Tamsulosin HCl (Tamsulosin Hcl 0.4 Mg Cap) 0.4 mg PO QAM [facility] Stop: 06/23/24 08:59 Last Admin: 05/25/24 08:18 Dose: 0.4 mg
--- NOTE | 2024-05-26 15:03 | Psychiatric Consultation ---
Date of Consultation May 26, 2024 Impression / Recommendations Impression Diagnostically suspect possible hypoactive delirium with increased fluctuations in alertness today and major depression. Given his statements of active suicide with plan to drown in a local chirinos if he were to leave the hospital and his demand to leave immediately a 302 commitment was pursued as he is felt to be at high acute risk of self-harm especially given access to guns in the home and ongoing physical conditions with limited benefit from treatment. The patient remains hospitalized on a completed 302 involuntary commitment, which if not extended, will on 05/31/2024 . This patient must remain on safety precautions with a 1-on-1 and is unable to leave the hospital AMA. Once medically stable with improved blood pressure if symptoms appear to be driven by major depression rather than hypoactive delirium then plan for geriatric psychiatry bed search. Overall, I spent a total of 80 minutes with this case including review of chart records, review of labwork, review of EKG QTc, direct evaluation of the patient at bedside, counseling the patient, discussion of the patient with the Nurse and with the hospitalist provider, discussion with the psychiatric liason during clinical rounds, review of collateral historian information from his friend and documentation in the electronic health record. (1) Depression with suicidal ideation: (2) Frequent headaches: (3) History of stroke: Plan -May not leave AMA, now on 302 commitment -1-on-1, safety precautions -Security should be called if he attempt to leave -For behavioral emergency would use: olanzapine 2.5mg IM (do not combine with benzodiazepines) -Psych liason to get further collateral from his friend -Would continue duloxetine 30mg daily for now, unclear what timeline of headaches is, Cymbalta can sometimes cause headaches so would consider alternative option like an SSRI if this seems to be correlated especially if Cymbalta is contributing to high blood pressure Psych History Identifying Data 73 yo man with hx of strokes (December 2020, April 2021, April 2024), DVT/PE on Eliquis, T2DM, HLD, thrombocytopenia, BPH admitted for generalized weakness and lethargy and concern for encephalopathy. Psychiatry consulted for risk assessment after concern for increased depression. Chief Complaint "Just want to end it all ". History of Present Illness Neo was seen by psych liason for support and observed to be very depressed and reporting suicidal ideation. Mid-day he started to demand to leave the hospital and there was concern for his decision making capacity given concern for encephalopathy and fluctuating levels of alertness. On my assessment he is fully oriented and standing in his doorway, fully dressed demanding to leave. He reports wanting to leave as hospital doesn't help with his severe headaches. Discussed potential risk of stroke at home and what he would do if BP remains high and ongoing CAMILO to which he reports "hopefully I'll ". When they asked more about his mood he states "I just want to end it all" and reports his two friends he lives with would "probably be upset" but "they'd get over it". States he's been having SI with plan to drown himself in a nearby "big chirinos". Reports access to "several guns" where he lives with his friends. Struggles since stroke which has impacted his speech, motor movements and mood. Later seen with friend, Roby, who he lives with. Roby feels he said those things due to frustration of not being able to leave. Roby isn't concerned about guns as he states there is no ammunition in the home, I discussed strong recommendation to secure the guns or remove them as ammunition could be purchased. He states this is possible but doesn't feel Neo would ever do that. Neo is visibly different from earlier in the day, sitting on the bed with his head down, soft spoken, appears very depressed, minimal verbal engagement. Allergies Allergy/AdvReac Type Severity Reaction Status Date / Time No Known Allergies Allergy Verified 05/15/24 15:38 Home Medications Medication Instructions Recorded Confirmed Type apixaban 5 mg tablet (Eliquis) 5 mg PO BID 30 days #60 tabs 02/02/21 05/23/24 Rx metformin 1,000 mg tablet 1,000 mg PO BIDM 02/12/21 05/23/24 History atorvastatin 40 mg tablet (Lipitor) 40 mg PO QAM 03/29/21 05/23/24 History gabapentin 300 mg capsule 300 mg PO TID 03/29/21 05/23/24 History (Neurontin) tamsulosin 0.4 mg capsule 0.4 mg PO QAM 08/23/22 05/23/24 History finasteride 5 mg tablet 5 mg PO QAM 05/08/24 05/23/24 History docusate sodium 100 mg capsule 100 mg PO Q OTHER DAY 05/15/24 05/23/24 History (Stool Softener) duloxetine 30 mg capsule,delayed 30 mg PO QAM #30 caps 05/19/24 05/23/24 Rx release magnesium 250 mg tablet 500 mg (2 x 250 mg) PO BID #120 05/19/24 05/23/24 Rx tabs propranolol 10 mg tablet 5 mg (1/2 x 10 mg) PO BID #15 tabs 05/19/24 05/23/24 Rx riboflavin (vitamin B2) 400 mg 400 mg PO DAILY #30 tabs 05/19/24 05/23/24 Rx tablet sumatriptan succinate 25 mg tablet 25 mg PO UD PRN Headache 05/23/24 05/23/24 History Patient History Medical History Knee pain, right MAGY (acute kidney injury) Weakness MAGY (acute kidney injury) Elevated troponin Anemia Kidney stones Stroke 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 ischemic stroke, residual mild weakness and short- term memory impairment Pulmonary embolism 1993- on Eliquis Hydronephrosis with urinary obstruction due to ureteral calculus Hypertension Surgical History History of back surgery No hardware History of cystoscopy Cystoscopy, left retropyelogram, Left ureteral stent placement (03/30/21): LMA#4 at [facility] H/O colonoscopy History of tympanoplasty of right ear Status post appendectomy Family History Uncle Family history of diabetes mellitus Other Heart disease Social History Smoking Status: Former smoker Tobacco Type: Declines Second Hand Exposure: No; Do You Dip or Chew Tobacco: No; Hx Alcohol Use: No Hx Substance Use: No Preferred Language: Hebrew Communication Ability: Effective Vegetables Cook Required: No Beliefs That Will Affect Care: None marital status: / Current Living Situation: Other Current Living Situation Comment: lives at home with friends current occupation: NOT WORKING How many Children do You have: 0 Other Information That Helps Us Care for You: No Feels Safe at Home: Yes Safety Concerns: Feels Safe At This Time Assistive Devices: Cane and Walker Physical Exam Psychiatric: Orientation: alert and oriented x 3 Apperance: appropriately dressed Eye Contact: good eye contact Motor Behavior: no abnormal motor movements Speech: normal rate/rhythm/volume of speech Affect: + flat affec t Mood: + depressed mood Thought Process: + concrete thought process Thought Content: reality based without delusions Suicidal Thoughts: + reports suicidal thoughts and + reports suicidal plan Homicidal Thoughts: denies homicidal thoughts Hallucinations: no auditory hallucinations and no visual hallucinations Insight: + limited insight Judgment: + limited judgement Vital Signs (Past 24 Hours): Last Vital Signs Temp 36.4 C L 05/26/24 11:37 Pulse 55 L 05/26/24 11:37 Resp 18 05/26/24 11:37 BP 169/97 H 05/26/24 11:37 Pulse Ox 95 05/26/24 11:37 O2 Del Method Room Air 05/26/24 11:37 Results & Data (PSY) Medications Administered Acetaminophen (Acetaminophen 325 Mg Tab) 650 mg PO Q4H PRN PRN Reason: Moderate Pain (Scale 4, 5, 6) Stop: 06/22/24 18:34 Last Admin: 05/25/24 20:16 Dose: 650 mg Documented By: [facility] Admin: 05/25/24 12:12 Dose: 650 mg Documented By: Admin: 05/25/24 06:11 Dose: 650 mg Documented By: [facility] Admin: 05/23/24 19:33 Dose: 650 mg Documented By: MESFIN Apixaban (Apixaban 5 Mg Tablet) 5 mg PO BID [facility] Stop: 06/22/24 20:59 Last Admin: 05/26/24 10:04 Dose: 5 mg Documented By: [facility] Admin: 05/25/24 20:17 Dose: 5 mg Documented By: [facility] Admin: 05/25/24 08:19 Dose: 5 mg Documented By: Admin: 05/24/24 19:45 Dose: 5 mg Documented By: [facility] Admin: 05/24/24 08:01 Dose: 5 mg Documented By: Admin: 05/23/24 21:09 Dose: 5 mg Documented By: MESFIN Atorvastatin Calcium ([facility]atin 40 Mg Tab) [facility] Stop: 06/23/24 08:59 Last Admin: 05/26/24 10:04 Dose: 40 mg Documented By: Admin: 05/25/24 08:18 Dose: 40 mg Documented By: Admin: 05/24/24 08:01 Dose: 40 mg Documented By: CHINO Docusate Sodium (Docusate Sodium 100 Mg Cap) 100 mg PO Q2D [facility] Stop: 06/22/24 18:59 Last Admin: 05/25/24 17:43 Dose: 100 mg Documented By: Admin: 05/23/24 21:08 Dose: 100 mg Documented By: MESFIN Finasteride (Finasteride 5 Mg Tab) 5 mg PO QAM [facility] Stop: 06/23/24 08:59 Last Admin: 05/26/24 10:04 Dose: 5 mg Documented By: Admin: 05/25/24 08:18 Dose: 5 mg Documented By: Admin: 05/24/24 08:01 Dose: 5 mg Documented By: CHION Insulin Aspart (Insulin Aspart Per Unit Charge) 0 units SC ACHS [facility] Stop: 06/22/24 20:59 Last Admin: 05/26/24 13:22 Dose: Not Given Documented By: Admin: 05/26/24 10:05 Dose: Not Given Documented By: Admin: 05/25/24 20:22 Dose: Not Given Documented By: Admin: 05/25/24 17:42 Dose: 4 units Documented By: CHINO Co-signed By: VISHNU Admin: 05/25/24 13:05 Dose: 7 units Documented By: CHINO Co-signed By: HOLDEN Admin: 05/25/24 09:20 Dose: 2 units Documented By: CHINO Co-signed By: [facility] Admin: 05/24/24 21:04 Dose: Not Given Documented By: Admin: 05/24/24 17:57 Dose: Not Given Documented By: Admin: 05/24/24 12:52 Dose: Not Given Documented By: Admin: 05/24/24 08:51 Dose: Not Given Documented By: Admin: 05/23/24 20:50 Dose: Not Given Documented By: GERALD Magnesium Oxide (Magnesium Oxide 400 Mg Tab) 400 mg PO BID [facility] Stop: 06/22/24 20:59 Last Admin: 05/26/24 10:04 Dose: 400 mg Documented By: Admin: 05/25/24 20:17 Dose: 400 mg Documented By: Admin: 05/25/24 08:18 Dose: 400 mg Documented By: Admin: 05/24/24 19:45 Dose: 400 mg Documented By: Admin: 05/24/24 08:01 Dose: 400 mg Documented By: Admin: 05/23/24 21:09 Dose: 400 mg Documented By: MESFIN Propranolol HCl (Propranolol Hcl 10 Mg Tab) 5 mg PO BID [facility] Stop: 06/22/24 20:59 Last Admin: 05/26/24 10:04 Dose: 5 mg Documented By: [facility] Admin: 05/25/24 20:17 Dose: 5 mg Documented By: Admin: 05/25/24 08:17 Dose: 5 mg Documented By: Admin: 05/24/24 19:45 Dose: 5 mg Documented By: Admin: 05/24/24 08:02 Dose: 5 mg Documented By: Admin: 05/23/24 20:49 Dose: Not Given Documented By: GERALD Sumatriptan Succinate (Sumatriptan Succinate 25 Mg Tab) 25 mg PO PRN PRN PRN Reason: Headache Stop: 06/22/24 18:34 Last Admin: 05/26/24 10:43 Dose: 25 mg Documented By: [facility] Admin: 05/25/24 09:21 Dose: 25 mg Documented By: CHINO Tamsulosin HCl (Tamsulosin Hcl 0.4 Mg Cap) 0.4 mg PO QAM [facility] Stop: 06/23/24 08:59 Last Admin: 05/26/24 10:05 Dose: 0.4 mg Documented By: Admin: 05/25/24 08:18 Dose: 0.4 mg Documented By: Admin: 05/24/24 08:01 Dose: 0.4 mg Documented By: CHINO Coding Level of Care Code 24472 IN/OBS CONSULT LVL 5,80M Diagnoses Depression with suicidal ideation F32.A; R45.851 Frequent headaches R51.9 History of stroke Z86.73
[2024-05-26] MEDS: GABAPENTIN 300 MG CAP PO ONE (15:55)
--- NOTE | 2024-05-26 18:18 | Hospitalist Progress Note ---
Date of Service May 26, 2024 Assessment & Plan (1) Lethargy: (2) Weakness: (3) Acute dehydration: (4) Dyslipidemia: (5) Type 2 diabetes mellitus: (6) Migraine: Plan Lethargy Concern for polypharmacy causing encephalopathy - Admitted to med tele -Holding gabapentin, Cymbalta -> plan to resume at lower levels -Monitor for pain control MAGY - Creatinine found to be 1.9 on admission, baseline appears to be 1.4-1.5, given 1 L NSS in the ER, continue with NS 125 x 2 more liters, encourage hydration orally and switch off IVs. - improved to Cr 1.5 -> 1.4 - Avoid nephrotoxins renally reduce medications - monitor BMP Hx Acute/subacute right MCA territory cortical infarct Oct 10 -repeat head CT without acute findings, no bleed, may continue Eliquis -Patient presenting with lethargy, concern for too much gabapentin use as above -Delirium precautions. Frequent reorientation, avoid sedating medications as able -From last weekend, recs of Neurologist Dr Bipin Stallings, advised to discontinue aspirin and continue with Eliquis only. -PT/OT evals Thrombocytopenia -Plt 114 on admit, follow am labs Migraines Persistent Headache - Was on propranolol 10mg BID for preventative measures, dose decreased to 5mg BID in setting of bradycardia - Imitrex/sumatriptan prn abortive measures - per friend - this was not started yet (was not picked up from pharmacy) - Neurology consulted for further recs last admission : "Continue with gabapentin 600 mg twice daily at 300 mg. Cymbalta 30 mg daily, baclofen 5 mg daily x 3 days for cervicogenic element" Add magnesium 500 mg twice daily, riboflavin 400 mg daily. Okay with a small dose sumatriptan for migraine abortive treatment. - Possible that combination of these meds are adding to lethargy Neurology again consulted - recommend nocturnal hypoxia study - negat., and (should get polysomnography study done as outpt), reduce dose of gabapentin Psychiatry liaison was also consulted for poss. depression/ poor appetite 05/26 discussed w/ psychiatry in detail - plan for 302 Also will start sertraline Uncontrolled hypertension -hydralazine prn with parameters for SBP greater than 180, propranolol 5mg BID, consider adding losartan - BP improved, follow up as outpt Bradycardia - echo from previous admission in April noting EF 55 to 60%, mild left ventricular hypertrophy, grade 1 diastolic dysfunction, mild mitral regurgitation, left ventricular wall motion normal - propranolol was reduced during last admission as above - HR running in 50s Possible sleep apnea Breathing pauses -happens during sleep per pt's friend Montse -Nocturnal pulse ox. obtained - did not qualify for suppl. o2 -advised to have full sleep study as OP in coordination Chronic Anemia - hgb 13.4, possibly concentrated with dehydration along with MAGY, follow - Recent anemia panel normal DM II - ISS with accuchecks achs - last A1C 8 DVT ppx: Eliquis FEN/GI: Heart healthy CODE: DNR/DNI Dispo: From home, now per psych 302 Admission and Anticipated Discharge Date Admission Date: May 24, 2024 Subjective Pt seen in follow up of weakness/ lethargy Currently laying in bed in NAD Denies fevers, chills, chest pain, shortness of breath, abd. pain, nausea Yesterday pt ate breakfast and lunch, he also walked in hallway with PT. However today not interested and says "I don't care to eat" Pt seen by psychiatry - and discussed with - plan for 302. Also discussed to start sertraline. Pt's friend present at the bedside also updated. Review of Systems Review of Systems: All systems reviewed & are unremarkable except as noted in Subjective Physical Exam Physical Exam: General: WD/WN M in NAD Head: Normocephalic, atraumatic ENT: PERRL, EOMI Chest: Clear to auscultation, on room air, no adventitious breath sounds Cardiac: Regular rate and rhythm, + systolic murmur, no JVD Abdominal: NABS x 4 quadrants, soft, nondistended, nontender to palpation Extremities: Normal inspection, no peripheral edema or erythema Neuro: AAO x 3, speech fluent, no facial asymmetry, moves extremities Results & Data Results & Data Vital Signs (Past 12 Hours) Vital Signs Temp Pulse Pulse Resp BP BP Pulse Ox 05/26/24 18:08 153/93 H 05/26/24 16:55 183/104 H 05/26/24 15:37 36.4 C L 104 H 20 95 05/26/24 11:37 36.4 C L 55 L 18 169/97 H 95 05/26/24 10:05 05/26/24 07:48 36.6 C 59 L 18 146/92 H 97 05/26/24 07:02 57 L O2 Del Method 05/26/24 18:08 05/26/24 16:55 05/26/24 15:37 Room Air 05/26/24 11:37 Room Air 05/26/24 10:05 Room Air 05/26/24 07:48 Room Air 05/26/24 07:02 Medications Administered Current Inpatient Medications Acetaminophen (Acetaminophen 325 Mg Tab) 650 mg PO Q4H PRN PRN Reason: Moderate Pain (Scale 4, 5, 6) Stop: 06/22/24 18:34 Last Admin: 05/25/24 20:16 Dose: 650 mg Apixaban (Apixaban 5 Mg Tablet) 5 mg PO BID [facility] Stop: 06/22/24 20:59 Last Admin: 05/26/24 10:04 Dose: 5 mg Atorvastatin Calcium (Atorvastatin 40 Mg Tab) 40 mg PO QAM [facility] Stop: 06/23/24 08:59 Last Admin: 05/26/24 10:04 Dose: 40 mg Dextrose (Dextrose 50% 50 Ml Syringe) 25 - 50 ml IV UD PRN; Protocol PRN Reason: Hypoglycemia Protocol Stop: 06/22/24 18:34 Docusate Sodium (Docusate Sodium 100 Mg Cap) 100 mg PO Q2D [facility] Stop: 06/22/24 18:59 Last Admin: 05/25/24 17:43 Dose: 100 mg Duloxetine HCl (Duloxetine Hcl 30 Mg Cap) 30 mg PO QAM [facility] Stop: 06/23/24 08:59 Finasteride (Finasteride 5 Mg Tab) 5 mg PO QAM [facility] Stop: 06/23/24 08:59 Last Admin: 05/26/24 10:04 Dose: 5 mg Gabapentin (Gabapentin 300 Mg Cap) 300 mg PO BID [facility] Stop: 06/25/24 20:59 Glucagon (Glucagon For Inj 1 Mg Vial) 1 mg SQ UD PRN; Protocol PRN Reason: Hypoglycemia Protocol Stop: 06/22/24 18:34 Glucose (Glucose 40% Gel 15 Gm Tube) 15 - 30 gm PO UD PRN; Protocol PRN Reason: Hypoglycemia Protocol Stop: 06/22/24 18:34 Glucose (Glucose 10 Tab/Tube) 4 - 8 tab PO UD PRN; Protocol PRN Reason: Hypoglycemia Protocol Stop: 06/22/24 18:34 Insulin Aspart (Insulin Aspart Per Unit Charge) 0 units SC ACHS [facility] Stop: 06/22/24 20:59 Last Admin: 05/26/24 17:54 Dose: 7 units Magnesium Oxide (Magnesium Oxide 400 Mg Tab) 400 mg PO BID [facility] Stop: 06/22/24 20:59 Last Admin: 05/26/24 10:04 Dose: 400 mg Miscellaneous (Carbohydrates For Hypoglycemia ) 15 - 30 gm PO UD PRN PRN Reason: Hypoglycemia Protocol Stop: 06/22/24 18:34 Ondansetron HCl (Ondansetron Inj 2 Mg/Ml 2 Ml Vial) 4 mg IV Q4H PRN PRN Reason: Nausea And Vomiting Stop: 06/22/24 18:34 Propranolol HCl (Propranolol Hcl 10 Mg Tab) 5 mg PO BID [facility] Stop: 06/22/24 20:59 Last Admin: 05/26/24 10:04 Dose: 5 mg Sertraline HCl (Sertraline Hcl 50 Mg Tablet) [facility] Stop: 06/26/24 08:59 Sumatriptan Succinate (Sumatriptan Succinate 25 Mg Tab) 25 mg PO PRN PRN PRN Reason: Headache Stop: 06/22/24 18:34 Last Admin: 05/26/24 10:43 Dose: 25 mg Tamsulosin HCl (Tamsulosin Hcl 0.4 Mg Cap) 0.4 mg PO QAM [facility] Stop: 06/23/24 08:59 Last Admin: 05/26/24 10:05 Dose: 0.4 mg
[2024-05-26] MEDS: GABAPENTIN 300 MG CAP PO SCH (20:48)
[2024-05-26] MEDS: hydrALAZINE HCL 20 MG/ML VIAL IV ONE (20:49)
[2024-05-27 06:52] LABS: BUN Creatinine Ratio 21.3 (10-20); Calcium 8.9 mg/dl (8.6-10.3); Creatinine Clr Calc Pharmacy 49.8 ml/min; Phosphorus 4.2 mg/dl (2.5-4.9); Potassium 4.2 mmol/L (3.5-5.1)
[2024-05-27 07:49] VITALS: TEMP 97.5
[2024-05-27] MEDS: SERTRALINE HCL 50 MG TABLET PO SCH (08:53)
--- NOTE | 2024-05-27 14:40 | Hospitalist Progress Note ---
Date of Service May 27, 2024 Assessment & Plan (1) Lethargy: (2) Weakness: (3) Acute dehydration: (4) Dyslipidemia: (5) Type 2 diabetes mellitus: (6) Migraine: Plan Lethargy Concern for polypharmacy causing encephalopathy - Admitted to med tele -Holding gabapentin, Cymbalta -> plan to resume at lower levels -Monitor for pain control MAGY - Creatinine found to be 1.9 on admission, baseline appears to be 1.4-1.5, given 1 L NSS in the ER, continue with NS 125 x 2 more liters, encourage hydration orally and switch off IVs. - improved to Cr 1.5 -> 1.4 - Avoid nephrotoxins renally reduce medications - monitor BMP Hx Acute/subacute right MCA territory cortical infarct Oct 10 -repeat head CT without acute findings, no bleed, may continue Eliquis -Patient presenting with lethargy, concern for too much gabapentin use as above -Delirium precautions. Frequent reorientation, avoid sedating medications as able -From last weekend, recs of Neurologist Dr Bipin Stallings, advised to discontinue aspirin and continue with Eliquis only. -PT/OT evals Thrombocytopenia -Plt 114 on admit, follow am labs Migraines Persistent Headache - Was on propranolol 10mg BID for preventative measures, dose decreased to 5mg BID in setting of bradycardia - Imitrex/sumatriptan prn abortive measures - per friend - this was not started yet (was not picked up from pharmacy) - Neurology consulted for further recs last admission : "Continue with gabapentin 600 mg twice daily at 300 mg. Cymbalta 30 mg daily, baclofen 5 mg daily x 3 days for cervicogenic element" Add magnesium 500 mg twice daily, riboflavin 400 mg daily. Okay with a small dose sumatriptan for migraine abortive treatment. - Possible that combination of these meds are adding to lethargy Neurology again consulted - recommend nocturnal hypoxia study - negat., and (should get polysomnography study done as outpt), reduce dose of gabapentin Psychiatry liaison was also consulted for poss. depression/ poor appetite 05/26 discussed w/ psychiatry in detail - plan for 302 Also started sertraline, stopped duloxetine Uncontrolled hypertension -hydralazine prn with parameters for SBP greater than 180, propranolol 5mg BID - will add losartan - BP improved, follow up as outpt Bradycardia - echo from previous admission in April noting EF 55 to 60%, mild left ventricular hypertrophy, grade 1 diastolic dysfunction, mild mitral regurgitation, left ventricular wall motion normal - propranolol was reduced during last admission as above - HR running in 50s Possible sleep apnea Breathing pauses -happens during sleep per pt's friend Montse -Nocturnal pulse ox. obtained - did not qualify for suppl. o2 -advised to have full sleep study as OP in coordination Chronic Anemia - hgb 13.4, possibly concentrated with dehydration along with MAGY, follow - Recent anemia panel normal DM II - ISS with accuchecks achs - last A1C 8 DVT ppx: Eliquis FEN/GI: Heart healthy CODE: DNR/DNI Dispo: From home (lives w/ friend and his ), now per psych 302 Admission and Anticipated Discharge Date Admission Date: May 24, 2024 Subjective Pt seen in follow up of weakness/ lethargy Currently laying in bed in NAD Denies fevers, chills, chest pain, shortness of breath, abd. pain, nausea Pt seen by psychiatry - and discussed with - 302 yesterday. Also started sertraline. Pt's friend present at the bedside and also updated. Review of Systems Review of Systems: All systems reviewed & are unremarkable except as noted in Subjective Physical Exam Physical Exam: General: WD/WN M in NAD Head: Normocephalic, atraumatic ENT: PERRL, EOMI Chest: Clear to auscultation, on room air, no adventitious breath sounds Cardiac: Regular rate and rhythm, + systolic murmur, no JVD Abdominal: NABS x 4 quadrants, soft, nondistended, nontender to palpation Extremities: Normal inspection, no peripheral edema or erythema Neuro: AAO x 3, speech fluent, no facial asymmetry, moves extremities Results & Data Results & Data Vital Signs (Past 12 Hours) Vital Signs Temp Pulse Pulse Resp BP Pulse Ox O2 Del Method 05/27/24 14:29 69 05/27/24 10:55 36.4 C L 63 16 155/94 H 96 Room Air 05/27/24 09:00 Room Air 05/27/24 07:48 36.4 C L 58 L 16 165/91 H 97 Room Air 05/27/24 07:14 55 L 05/27/24 03:29 36.6 C 84 18 146/86 H 98 Room Air Laboratory Results 05/27/24 05/27/24 05/27/24 Range/Units 12:00 08:06 06:09 Sodium 140 (136-145) mmol/L Potassium 4.2 (3.5-5.1) mmol/L Chloride 107 (98-107) mmol/L Carbon Dioxide 26 (21-32) mmol/L Anion Gap 7 (3-11) BUN 29 H (6-23) mg/dl Creatinine 1.36 (0.6-1.4) mg/dl Est Cr Clr Drug Dosing 49.8 ml/min eGFR 54.27 BUN/Creatinine Ratio 21.3 H (10-20) Glucose 111 H (70-99(Fasting)) mg/dl POC Glucose 216 H 129 H (70-99) mg/dl Calcium 8.9 (8.6-10.3) mg/dl Phosphorus 4.2 (2.5-4.9) mg/dl Magnesium 2.0 (1.7-2.4) mg/dl 05/26/24 05/26/24 Range/Units 20:00 17:00 Sodium (136-145) mmol/L Potassium (3.5-5.1) mmol/L Chloride (98-107) mmol/L Carbon Dioxide (21-32) mmol/L Anion Gap (3-11) BUN (6-23) mg/dl Creatinine (0.6-1.4) mg/dl Est Cr Clr Drug Dosing ml/min eGFR BUN/Creatinine Ratio (10-20) Glucose (70-99(Fasting)) mg/dl POC Glucose 202 H 182 H (70-99) mg/dl Calcium (8.6-10.3) mg/dl Phosphorus (2.5-4.9) mg/dl Magnesium (1.7-2.4) mg/dl Medications Administered Current Inpatient Medications Acetaminophen (Acetaminophen 325 Mg Tab) 650 mg PO Q4H PRN PRN Reason: Moderate Pain (Scale 4, 5, 6) Stop: 06/22/24 18:34 Last Admin: 05/25/24 20:16 Dose: 650 mg Apixaban (Apixaban 5 Mg Tablet) 5 mg PO BID [facility] Stop: 06/22/24 20:59 Last Admin: 05/27/24 08:54 Dose: 5 mg Atorvastatin Calcium (Atorvastatin 40 Mg Tab) [facility] Stop: 06/23/24 08:59 Last Admin: 05/27/24 08:54 Dose: 40 mg Dextrose (Dextrose 50% 50 Ml Syringe) 25 - 50 ml IV UD PRN; Protocol PRN Reason: Hypoglycemia Protocol Stop: 06/22/24 18:34 Docusate Sodium (Docusate Sodium 100 Mg Cap) 100 mg PO Q2D [facility] Stop: 06/22/24 18:59 Last Admin: 05/25/24 17:43 Dose: 100 mg Duloxetine HCl (Duloxetine Hcl 30 Mg Cap) 30 mg PO QAM [facility] Stop: 06/23/24 08:59 Finasteride (Finasteride 5 Mg Tab) 5 mg PO QAM [facility] Stop: 06/23/24 08:59 Last Admin: 05/27/24 08:52 Dose: 5 mg Gabapentin (Gabapentin 300 Mg Cap) 300 mg PO BID [facility] Stop: 06/25/24 20:59 Last Admin: 05/27/24 08:55 Dose: 300 mg Glucagon (Glucagon For Inj 1 Mg Vial) 1 mg SQ UD PRN; Protocol PRN Reason: Hypoglycemia Protocol Stop: 06/22/24 18:34 Glucose (Glucose 40% Gel 15 Gm Tube) 15 - 30 gm PO UD PRN; Protocol PRN Reason: Hypoglycemia Protocol Stop: 06/22/24 18:34 Glucose (Glucose 10 Tab/Tube) 4 - 8 tab PO UD PRN; Protocol PRN Reason: Hypoglycemia Protocol Stop: 06/22/24 18:34 Insulin Aspart (Insulin Aspart Per Unit Charge) 0 units SC ACHS [facility] Stop: 06/22/24 20:59 Last Admin: 05/27/24 13:11 Dose: 8 units Losartan Potassium (Losartan Potassium 25 Mg Tab) 25 mg PO QAM [facility] Stop: 06/27/24 08:59 Magnesium Oxide (Magnesium Oxide 400 Mg Tab) 400 mg PO BID [facility] Stop: 06/22/24 20:59 Last Admin: 05/27/24 08:54 Dose: 400 mg Miscellaneous (Carbohydrates For Hypoglycemia ) 15 - 30 gm PO UD PRN PRN Reason: Hypoglycemia Protocol Stop: 06/22/24 18:34 Ondansetron HCl (Ondansetron Inj 2 Mg/Ml 2 Ml Vial) 4 mg IV Q4H PRN PRN Reason: Nausea And Vomiting Stop: 06/22/24 18:34 Propranolol HCl (Propranolol Hcl 10 Mg Tab) 5 mg PO BID [facility] Stop: 06/22/24 20:59 Last Admin: 05/27/24 08:53 Dose: 5 mg Sertraline HCl (Sertraline Hcl 50 Mg Tablet) 50 mg PO QAM [facility] Stop: 06/26/24 08:59 Last Admin: 05/27/24 08:53 Dose: 50 mg Sumatriptan Succinate (Sumatriptan Succinate 25 Mg Tab) 25 mg PO PRN PRN PRN Reason: Headache Stop: 06/22/24 18:34 Last Admin: 05/27/24 08:51 Dose: 25 mg Tamsulosin HCl (Tamsulosin Hcl 0.4 Mg Cap) 0.4 mg PO QAM [facility] Stop: 06/23/24 08:59 Last Admin: 05/27/24 08:54 Dose: 0.4 mg
--- NOTE | 2024-05-27 15:09 | Psychiatric Progress Note ---
Date of Service May 27, 2024 Impression / Recommendations Impression Diagnostically suspect possible hypoactive delirium with increased fluctuations in alertness today and major depression. Given his statements of active suicide with plan to drown in a local [place] if he were to leave the hospital and his demand to leave immediately a 302 commitment was pursued as he is felt to be at high acute risk of self-harm especially given access to guns in the home and ongoing physical conditions with limited benefit from treatment. The patient remains hospitalized on a completed 302 involuntary commitment, which if not extended, will at 1526 on 05/31/2024 . This patient must remain on safety precautions with a 1-on-1 and is unable to leave the hospital AMA. A: Now medically stable, initially plan was for geriatric psychiatry inpatient referral however given his mood is improving already a bit and goal is for short admission with addition of local outpatient supports, able to meet his ADLs independently and while showing signs of cognitive impairment on MOCA on interview and assessment seems he will be able to participate in and process information in traditional group based format adult inpatient admission felt to be reasonable pending negative COVID test. Overall, I spent a total of 55 minutes with this case including review of chart records, review of labwork, direct evaluation of the patient at bedside, counseling the patient, discussion of the patient with the Nurse and with the hospitalist provider, discussion with the psychiatric liason during clinical rounds, review of collateral historian information from his friend and d ocumentation in the electronic health record. (1) Depression with suicidal ideation: (2) Frequent headaches: (3) History of stroke: Plan -Now medically stable, plan for inpatient psychiatry admission pending negative COVID test -May not leave AMA, now on 302 commitment -1-on-1, safety precautions -Security should be called if he attempt to leave -For behavioral emergency would use: olanzapine 2.5mg IM (do not combine with benzodiazepines) -Zoloft started today in exchange from Cymbalta given concerns Cymbalta could be contributing to headache and/or BP changes Interval History Identifying Information 73 yo man with hx of strokes (December 2020, April 2021, April 2024), DVT/PE on Eliquis, T2DM, HLD, thrombocytopenia, BPH admitted for generalized weakness and lethargy and concern for encephalopathy. Psychiatry consulted for risk assessment after concern for increased depression. Chief Complaint "Good". Subjective Subjective Patient was seen & assessed and interval progress reviewed. No overnight events. Today reports his mood is "good". His friend Roby is at bedside. He completed MOCA with psych liason scored 16/30. Fully oriented today, knows upcoming holidays. Not requiring any assistive aids to ambulate. Physical Exam Psychiatric Orientation: alert and oriented x 3 Apperance: appropriately dressed Eye Contact: good eye contact Motor Behavior: no abnormal motor movements Speech: normal rate/rhythm/volume of speech Affect: + flat affect Mood: + depressed mood Thought Process: + concrete thought process Thought Content: reality based without delusions Suicidal Thoughts: denies suicidal thoughts and denies suicidal plan Homicidal Thoughts: denies homicidal thoughts Hallucinations: no auditory hallucinations and no visual hallucinations Insight: + limited insight Judgment: + limited judgement Vital Signs (Past 24 Hours) Last Vital Signs Temp 36.4 C L 05/27/24 10:55 Pulse 69 05/27/24 14:29 Resp 16 05/27/24 10:55 BP 155/94 H 05/27/24 10:55 Pulse Ox 96 05/27/24 10:55 O2 Del Method Room Air 05/27/24 10:55 Results & Data (U) Laboratory Results Laboratory Results - last 24 hr 05/26/24 05/26/24 05/27/24 17:00 20:00 06:09 Sodium 140 Potassium 4.2 Chloride 107 Carbon Dioxide 26 Anion Gap 7 BUN 29 H Creatinine 1.36 Est Cr Clr Drug Dosing 49.8 eGFR 54.27 BUN/Creatinine Ratio 21.3 H Glucose 111 H POC Glucose 182 H 202 H Calcium 8.9 Phosphorus 4.2 Magnesium 2.0 05/27/24 05/27/24 08:06 12:00 Sodium Potassium Chloride Carbon Dioxide Anion Gap BUN Creatinine Est Cr Clr Drug Dosing eGFR BUN/Creatinine Ratio Glucose POC Glucose 129 H 216 H Calcium Phosphorus Magnesium Current Inpatient Medications Current Inpatient Medications: Current Inpatient Medications Acetaminophen (Acetaminophen 325 Mg Tab) 650 mg PO Q4H PRN PRN Reason: Moderate Pain (Scale 4, 5, 6) Stop: 06/22/24 18:34 Last Admin: 05/25/24 20:16 Dose: 650 mg Apixaban (Apixaban 5 Mg Tablet) 5 mg PO BID [facility] Stop: 06/22/24 20:59 Last Admin: 05/27/24 08:54 Dose: 5 mg Atorvastatin Calcium (Atorvastatin 40 Mg Tab) 40 mg PO QAM [facility] Stop: 06/23/24 08:59 Last Admin: 05/27/24 08:54 Dose: 40 mg Dextrose (Dextrose 50% 50 Ml Syringe) 25 - 50 ml IV UD PRN; Protocol PRN Reason: Hypoglycemia Protocol Stop: 06/22/24 18:34 Docusate Sodium (Docusate Sodium 100 Mg Cap) 100 mg PO Q2D [facility] Stop: 06/22/24 18:59 Last Admin: 05/25/24 17:43 Dose: 100 mg Duloxetine HCl (Duloxetine Hcl 30 Mg Cap) 30 mg PO QAM [facility] Stop: 06/23/24 08:59 Finasteride (Finasteride 5 Mg Tab) 5 mg PO QAM [facility] Stop: 06/23/24 08:59 Last Admin: 05/27/24 08:52 Dose: 5 mg Gabapentin (Gabapentin 300 Mg Cap) 300 mg PO BID [facility] Stop: 06/25/24 20:59 Last Admin: 05/27/24 08:55 Dose: 300 mg Glucagon (Glucagon For Inj 1 Mg Vial) 1 mg SQ UD PRN; Protocol PRN Reason: Hypoglycemia Protocol Stop: 06/22/24 18:34 Glucose (Glucose 40% Gel 15 Gm Tube) 15 - 30 gm PO UD PRN; Protocol PRN Reason: Hypoglycemia Protocol Stop: 06/22/24 18:34 Glucose (Glucose 10 Tab/Tube) 4 - 8 tab PO UD PRN; Protocol PRN Reason: Hypoglycemia Protocol Stop: 06/22/24 18:34 Insulin Aspart (Insulin Aspart Per Unit Charge) 0 units SC ACHS [facility] Stop: 06/22/24 20:59 Last Admin: 05/27/24 13:11 Dose: 8 units Losartan Potassium (Losartan Potassium 25 Mg Tab) 25 mg PO QAM [facility] Stop: 06/27/24 08:59 Magnesium Oxide (Magnesium Oxide 400 Mg Tab) 400 mg PO BID [facility] Stop: 06/22/24 20:59 Last Admin: 05/27/24 08:54 Dose: 400 mg Miscellaneous (Carbohydrates For Hypoglycemia ) 15 - 30 gm PO UD PRN PRN Reason: Hypoglycemia Protocol Stop: 06/22/24 18:34 Ondansetron HCl (Ondansetron Inj 2 Mg/Ml 2 Ml Vial) 4 mg IV Q4H PRN PRN Reason: Nausea And Vomiting Stop: 06/22/24 18:34 Propranolol HCl (Propranolol Hcl 10 Mg Tab) 5 mg PO BID [facility] Stop: 06/22/24 20:59 Last Admin: 05/27/24 08:53 Dose: 5 mg Sertraline HCl (Sertraline Hcl 50 Mg Tablet) 50 mg PO QAM [facility] Stop: 06/26/24 08:59 Last Admin: 05/27/24 08:53 Dose: 50 mg Sumatriptan Succinate (Sumatriptan Succinate 25 Mg Tab) 25 mg PO PRN PRN PRN Reason: Headache Stop: 06/22/24 18:34 Last Admin: 05/27/24 08:51 Dose: 25 mg Tamsulosin HCl (Tamsulosin Hcl 0.4 Mg Cap) 0.4 mg PO QAM [facility] Stop: 06/23/24 08:59 Last Admin: 05/27/24 08:54 Dose: 0.4 mg
[2024-05-27 15:27] VITALS: RESP 18; O2SAT 98
--- NOTE | 2024-05-27 16:52 | Discharge Summary ---
Date of Service May 27, 2024 Admission HPI Per Admitting Provider 73-year-old male with PMHx significant for strokes [December 2020, April 2021, April 2024], DVT/PE on Eliquis, T2DM, HLD, thrombocytopenia, BPH who presented to the ED at referral from PCP office for noted generalized weakness and lethargy. He has had multiple admissions this month from 05/08-05/09 with recent CVA, as well as 05/15-05/19 for stroke like symptoms, acute metabolic encephalopathy. Patient denies having any acute complaints today, he just feels fatigued. He has not had good oral intake since Sunday. His friend, Roby, present at bedside states that the patient lives with him and has been taking care of him since 2019 and that he has no other family. He is very up on his medications, has a list. They were in and saw his PCP this morning who referred him here for increased lethargy and has request to reduce gabapentin to 300 mg 3 times daily, and discontinue amlodipine which was started upon discharge on 05/19. Admission Exam Per Admitting Provider General: awake, alert, no apparent distress, elderly white male, + lethargy, has difficulty staying awake during conversation, participates in conversation, follows all commands correctly Head: Normocephalic, atraumatic ENT: PERRL, EOMI, no pharyngeal exudate, mucous membranes moist Chest: Clear to auscultation, on room air, no adventitious breath sounds Cardiac: Regular rate and rhythm, + loud systolic murmur, + rub, no JVD, normal peripheral pulses, good capillary refill Abdominal: NABS x 4 quadrants, soft, nondistended, nontender to palpation, no rebound or guarding Extremities: Normal inspection, no peripheral edema or erythema, calfs nontender to palpation Psych: Normal mood and affect Neuro: AAO x 3, strength intact bilaterally and rated 5/5, no motor deficits, speech is clear, no peripheral sensory deficits Principal Diagnosis Lethargy, polypharmacy MAGY, dehydration Headache Major depression vs hypoactive delirium Discharge Exam General: WD/WN M in NAD Head: Normocephalic, atraumatic ENT: PERRL, EOMI Chest: Clear to auscultation, on room air, no adventitious breath sounds Cardiac: Regular rate and rhythm, + systolic murmur, no JVD Abdominal: NABS x 4 quadrants, soft, nondistended, nontender to palpation Extremities: Normal inspection, no peripheral edema or erythema Neuro: AAO x 3, speech fluent, no facial asymmetry, moves extremities Discharge Data Allergies Allergy/AdvReac Type Severity Reaction Status Date / Time No Known Allergies Allergy Verified 05/15/24 15:38 Consultations 05/23/24 17:03 ED Decision to Admit Stat 05/24/24 15:38 Consult Behavioral Health Liaison Routine 05/25/24 08:22 Consult Neurology Routine 05/26/24 13:24 Consult Psychiatry Routine Ordered Studies 05/23/24 16:09 CT head/brain wo con Stat FINDINGS: No acute intracranial hemorrhage, midline shift or mass effect is present. The ventricular system is unremarkable. The basal cisterns are patent. No extra-axial collections are present. There are no findings to suggest acute dural sinus thrombosis or acute territorial infarct. Multifocal encephalomalacia consistent with old infarcts is unchanged. The appearance of the brain is unchanged. There are no calvarial fracture IMPRESSION: No acute intracranial findings. No change in appearance of the brain. Multiple old infarcts. Hospital Course (1) Lethargy: (2) Weakness: (3) Acute dehydration: (4) Dyslipidemia: (5) Type 2 diabetes mellitus: (6) Migraine: Plan Lethargy Concern for polypharmacy causing encephalopathy Both toxic and metabolic encephalopathy due to polypharmacy, dehydration, and MAGY - Admitted to med tele -Holding gabapentin, Cymbalta -> Discussed w/ neurology and psychiatry -> gabapentin decreased to 300 mg bid, duloxetin stopped, pt started on sertraline -Monitor for pain control MAGY - Creatinine found to be 1.9 on admission, baseline appears to be 1.4-1.5, given 1 L NSS in the ER, continue with NS 125 x 2 more liters, encourage hydration orally and switch off IVs. - improved to Cr 1.5 -> 1.4 - Avoid nephrotoxins renally reduce medications - monitor BMP Hx Acute/subacute right MCA territory cortical infarct Oct 10 -repeat head CT without acute findings, no bleed, may continue Eliquis -Patient presenting with lethargy, concern for too much gabapentin use as above -Delirium precautions. Frequent reorientation, avoid sedating medications as able -From last weekend, recs of Neurologist Dr Bipin Stallings, advised to discontinue aspirin and continue with Eliquis only. -PT/OT evals Thrombocytopenia -Plt 114 on admit, follow am labs Migraines Persistent Headache - Was on propranolol 10mg BID for preventative measures, dose decreased to 5mg BID in setting of bradycardia - Imitrex/sumatriptan prn abortive measures - per friend - this was not started yet (was not picked up from pharmacy). Tried in the hospital w/o much relief -> will discontinue - Neurology consulted for further recs last admission : "Continue with gabapentin 600 mg twice daily at 300 mg. Cymbalta 30 mg daily, baclofen 5 mg daily x 3 days for cervicogenic element" Add magnesium 500 mg twice daily, riboflavin 400 mg daily. Okay with a small dose sumatriptan for migraine abortive treatment. - Possible that combination of these meds are adding to lethargy Neurology again consulted - recommend nocturnal hypoxia study - negat., and (should get polysomnography study done as outpt), reduce dose of gabapentin Psychiatry liaison was also consulted for poss. depression/ poor appetite 05/26 discussed w/ psychiatry in detail -> 302 commitment Also started sertraline, stopped duloxetine Will transfer to inpatient psychiatry unit. Pt is medically stable to be further treated there. Hypertension -hydralazine prn with parameters for SBP greater than 180, propranolol 5mg BID - added losartan 25 mg daily - BP improved, follow up as outpt Bradycardia - echo from previous admission in April noting EF 55 to 60%, mild left ventricular hypertrophy, grade 1 diastolic dysfunction, mild mitral regurg itation, left ventricular wall motion normal - propranolol was reduced during last admission as above Possible sleep apnea Breathing pauses -happens during sleep per pt's friend Montse -Nocturnal pulse ox. obtained - did not qualify for suppl. O2 -advised to have full sleep study as OP in coordination Chronic Anemia - hgb 13.4, possibly concentrated with dehydration along with MAGY - after hydration Hgb 11.4 - Recent anemia panel normal DM II - ISS with accuchecks achs - last A1C 8 Dispo: From home (lives w/ friend and his ), now per psych 302 commitment -> plan to transfer to inpt psych unit Total Time Total Time Spent Total Time Spent (In Minutes): 40 Discharge Plan Discharge Items Patient Disposition: Transfer Behavioral Health Fac Reason For Visit: LETHARGY Discharge Diagnosis: Lethargy, polypharmacy MAGY, dehydration Headache Major depression vs hypoactive delirium Activity: Per Instructions section Non-emergency contact: Primary Care Provider, Specialist and Psychiatrist Call non-emergency contact if: you have any medication questions and your symptoms worsen Follow-up/Referrals: Keo Patrick DO [Primary Care Provider] - (Date & Time 05/30/2024 9:40 AM Provider [place] [facility] [address] [facility] Date & Time 05/30/2024 10:00 AM Provider Keo Patrick DO [address] ) Nikki Santillan PA-C [Physician Web Designer Developer] - (Date & Time 06/10/2024 12:30 PM Provider Nikki Santillan PA-C Department Neurology [facility] ) Diet: Carb Consistent or DM2 and Heart Healthy Addtl Attending Provider Instructions: You will be transferred to inpatient behavioral health unit. Your gabapentin was decreased to 300 mg twice a day to help with your headache. Duloxetine was stopped and you were started on sertraline. For blood pressure, you were started on losartan 25 mg daily. Follow up with your primary care physician to see if this dose needs to be further adjusted. Pending Studies at Discharge: No Stand-Alone Forms: [facility] Skilled Items DNR: Yes Lines: None Urinary Catheter: No Medications and DC Order Prescriptions: New losartan 25 mg Tablet 25 mg PO QAM Qty: 30 0RF sertraline 50 mg Tablet 50 mg PO QAM Qty: 30 0RF Continued Eliquis 5 mg Tablet 5 mg PO BID 30 Days Qty: 60 3RF metformin 1,000 mg tablet 1,000 mg PO BIDM tamsulosin 0.4 mg capsule 0.4 mg PO QAM atorvastatin [Lipitor] 40 mg tablet 40 mg PO QAM finasteride 5 mg tablet 5 mg PO QAM docusate sodium [Stool Softener] 100 mg Capsule 100 mg PO Q OTHER DAY propranolol 10 mg Tablet 5 mg PO BID Qty: 15 0RF riboflavin (vitamin B2) 400 mg tablet 400 mg PO DAILY Qty: 30 0RF magnesium 250 mg tablet 500 mg PO BID Qty: 120 0RF Changed gabapentin [Neurontin] 300 mg capsule 300 mg PO BID Qty: 0 0RF Rx Instructions: 600mg qAm, 300mg at noon, 300mg HS Discontinued sumatriptan succinate 25 mg tablet 25 mg PO UD PRN (Reason: Headache) Rx Instructions: take 1 tab at onset of headache; if no relief may repeat 1 tab after at least 2 hrs; max = 4 tabs/24 hr duloxetine 30 mg Capsule,Delayed Release(Dr/Ec) 30 mg PO QAM Qty: 30 0RF Discharge Orders: Discharge Order (Routine); Ordered 05/27/24 Ordered By: Uche Denson Admission Data Admit Date/Time: 05/24/24 14:42 Attending Provider: Uche Denson Admit Provider: Dunia Dejesus Primary Care Provider: Keo Patrick Other Providers: Dunia Dejesus; Tricia Figueroa; Patricio Contreras; Tricia Darnell; Johnny Mullen; Per Lunsford; Todd Zaidi; Ariel Smith; Nikki Santillan; Patrice Calzada; Gilson Ford; Juarez Dumont; Keo Duran; Rosalia Oglesby; Liudmila Witt; Ariel Zepeda; Erna Burkett; Solange Barry; Johnny Godoy; Jayne Gomez; Moriah Boss; Cassius Rico; Laura Hughes
[2024-05-27] MEDS: LOSARTAN POTASSIUM 25 MG TAB PO ONE (16:58)
[2024-05-27 17:04] VITALS: BP 153/93; PULSE 104
[2024-05-28] MEDS ORDERED: LOSARTAN POTASSIUM 25 MG TAB PO SCH (09:00)
== END 2024-05-27 18:21 | DRG 91 ==
LOC: 2N 14:30 → ED 14:30 → SUATTDRO 17:31 → 2N 18:30

== ENCOUNTER 2024-05-27 18:42 | Inpatient (IN) ==
[2024-05-27] MEDS ORDERED: SODIUM CHLORIDE 0.65% NA SOLN 45 ML (OCEAN) PRN (19:01)
[2024-05-27] MEDS ORDERED: ALUMINUM/MAGNESIUM SUSP 30 ML UDC PO PRN (19:01)
[2024-05-27] MEDS ORDERED: hydrOXYzine HCl 25 MG TAB PO PRN ×2 (19:01)
[2024-05-27] MEDS ORDERED: BISMUTH SUBSALICYLATE 262 MG CHEW PO PRN (19:01)
[2024-05-27] MEDS ORDERED: MAGNESIUM HYDROXIDE SUSP 30 ML UDC PO PRN (19:01)
[2024-05-27] MEDS ORDERED: ACETAMINOPHEN 325 MG TAB PO PRN (19:01)
[2024-05-27 19:41] VITALS: O2SAT 98
[2024-05-27] MEDS ORDERED: PHARMACY GLYCEMIC MGMT CONSULT PRN (21:03)
[2024-05-27] MEDS ORDERED: CARBOHYDRATES FOR HYPOGLYCEMIA PO PRN (21:15)
[2024-05-27] MEDS ORDERED: GLUCOSE 40% GEL 15 GM TUBE PO PRN (21:15)
[2024-05-27] MEDS ORDERED: DEXTROSE 50% 50 ML SYRINGE IV PRN (21:15)
[2024-05-27] MEDS ORDERED: GLUCOSE 10 TAB/TUBE PO PRN (21:15)
[2024-05-27] MEDS ORDERED: GLUCAGON FOR INJ 1 MG VIAL SQ PRN (21:15)
[2024-05-27] MEDS: APIXABAN 5 MG TABLET PO SCH (22:00)
[2024-05-27] MEDS: MAGNESIUM OXIDE 400 MG TAB PO SCH (22:01)
[2024-05-27] MEDS: GABAPENTIN 300 MG CAP PO SCH (22:02)
[2024-05-27] MEDS: PROPRANOLOL HCL 10 MG TAB PO SCH (22:02)
[2024-05-27] MEDS: INSULIN ASPART PER UNIT CHARGE SC SCH (22:09)
--- OUTSIDE RECORDS SUMMARY | 2024-05-28 02:39 | External Medical Summary | Summary of Care ---
Author Name Unknown Organization [facility] Address [address] [place] [facility] [place] [address] Phone [phone] Care Team Providers Care Batteryman Name Role Phone Keo Patrick DO Primary Care Provider [phone] Reason for Visit * Reason Onset Date Comments Follow Up Hospital Follow-Up 05/23/2024 Encounter Details Date Type Department Care Team (Latest Contact Info) Description 05/23/2024 1:40 PM EDT Office Visit Family Practice [address] [place] [address] [address] [place] [address] Keo Patrick DO [address] [place] [address] Confused*; Other abnormalities of gait and mobility; Migraine without status migrainosus, not intractable, unspecified migraine type; Cerebrovascular disease, arteriosclerotic, post-stroke; Type 2 diabetes mellitus with hemoglobin A1c goal of less than 8.0% ([facility]); Hemiplegia and hemiparesis following cerebral infarction affecting left non-dominant side ([facility]); Current mild episode of major depressive disorder without prior episode ([facility]); 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 ([facility]); Dyslipidemia, goal LDL below 100; BPH with obstruction/lower urinary tract symptoms; Degeneration of intervertebral disc of lumbar region with discogenic back pain; HTN, goal below 140/90; History of CVA (cerebrovascular accident); Aphasia, post-stroke; Risk and functional assessment; Hospital discharge follow-up Allergies No known active allergiesdocumented as of this encounter (statuses as of 05/24/2024) Medications Medication Sig Dispensed Refills Start Date End Date Status Aspirin 81 MG Oral CapsuleIndication s:Heart health Take 81 mg by mouth in the morning. Active Acetaminophen 500 MG Oral Tablet Take 3 Tablets by mouth daily as needed for Pain, Breakthrough. Active Sennosides-Docusa te Sodium 8.6-50 MG Oral Tablet Take 1 Tablet by mouth every evening. As needed Active Tamsulosin HCl 0.4 MG Oral Capsule (Flomax)Indicatio ns:BPH with obstruction/lower urinary tract symptoms Take 1 Capsule by mouth in the morning. 100 Capsule 3 08/16/2023 Active Propranolol HCl 10 MG Oral Tablet (Inderal)Indicati ons:Other headache syndrome Take 1 Tablet by mouth in the morning and 1 Tablet before bedtime. 200 Tablet 08/16/2023 Active Additional Information Patient taking differently: 5 mgOral BID (.AM/PM), Reported on 05/20/2024 metFORMIN HCl 1000 MG Oral Tablet (Glucophage)Indic ations:Type 2 diabetes mellitus with hemoglobin A1c goal of less than 7.0% ([facility]),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 (HCC) TAKE 1 TABLET BY MOUTH TWICE DAILY WITH MORNING MEAL AND WITH EVENING MEAL 200 Tablet 08/16/2023 Active Finasteride 5 MG Oral Tablet (Proscar)Indicati ons:BPH with obstruction/lower urinary tract symptoms Take 1 Tablet by mouth in the morning. 100 Tablet 08/16/2023 Active Atorvastatin Calcium 40 MG Oral Tablet (Lipitor)Indicati ons:Dyslipidemia, goal LDL below 100 Take 1 Tablet by mouth in the morning. 100 Tablet 08/16/2023 Active Apixaban 5 MG Oral Tablet (Eliquis)Indicati ons:Recurrent deep vein thrombosis (DVT) ([facility]) Take 1 Tablet by mouth in the morning and 1 Tablet before bedtime. 200 Tablet 08/16/2023 Active Gabapentin 300 MG Oral Capsule (Neurontin) Take 2 capsules by mouth in the morning, 1 capsule by mouth at noon and 2 capsules by mouth in the evening. Active Magnesium 500 MG Oral Capsule Take [...] 2 hours as needed for Migraine. Active amLODIPine Besylate 2.5 MG Oral Tablet (Norvasc) Take 1 Tablet by mouth in the morning. Discontinue d(Medicatio n/Dose Changed) documented as of this encounter (statuses as of 05/24/2024) Active Problems Problem Noted Date Diagnosed Date Migraine without status migrainosus, not intract able 05/23/2024 Cerebrovascular disease, arteriosclerotic, post- stroke 05/12/2024 Chronic [...] #14. ICD-10 update of inactive term senior care current use of anticoagulant therapy 0 08/05/2003 Overview: ICD-10 update of inactive term Varicose vein of leg documented as of this encounter (statuses as of 05/24/2024) Resolved Problems Problem Noted Date Diagnosed Date [...] management encounter 01/24/2002 02/04/2021 VENOUS THROMBOSIS Recurrent 1984 and 1994 01/23/2020 Malaise and fatigue 11/20/19 12 PERFORAT TYMPAN MEMB NOS documented as of this encounter (statuses as of 05/24/2024) Immunizations Name Administration Dates Next Due H1N1 2009 Influenza, IM 09/24/2009 Pneumococcal Conjugate Vacc, 13 Valent (Prevnar) 04/20/2015 Pneumococcal Polysaccharide PPV23 (Pneumovax) 03/04/2014,09/21/2008 Seasonal Influenza Vac., MDV , IM, 0.5 mL (Fluzone) 04/20/2015,06/09/2014,07/21/2013,07/11,04/24/2011,04/14/2010,06/23/2009 ,07/20/2008,07/08/2003 Seasonal Influenza, Quadriva lent Hd (Fluzone Hd) 06/29/2023(Deferred: Patient Refused),06/27/2021 Seasonal Influenza, Quadriva lent, No Preserve, IM 05/12/2016 TD - Tetanus/Diptheria (ADULT) 05/03/2006,2000 TDAP (age 10 and older)(Boostrix) 08/13/2015 Varicella [...] Sign Reading Time Taken Comments Blood Pressure 129/81 05/24/2024 10:28 AM EDT Pulse 70 05/23/2024 1:36 PM EDT Temperature 36.1 C (97 F) 05/23/2024 1:36 PM EDT Respiratory Rate 12 05/23/2024 1:36 PM EDT Oxygen Saturation 91% 05/23/2024 1:36 PM EDT Inhaled Oxygen Concentration - - Weight 89.5 kg (197 lb 4.8 oz) 05/23/2024 1:36 P M EDT Height 170.2 cm (5' 7") 05/23/2024 1:36 PM EDT Body Mass Index 30.9 05/23/2024 1:36 PM EDT documented in this encounter Patient Instructions * Patient Instructions* Ning Alisha, LPN - 05/23/2024 1:34 PM EDT Patient Instructions - Fall Prevention (This education is for all patients over 65 regardless of symptoms) Remember to take your current medications as prescribed. In order to prevent falls, you are encouraged to: Exercise Utilize assistive/adaptive devices Avoid multifocal lenses when walking Avoid hazards in home Maintain a regular toileting schedule Any questions please contact our office. Preventing Falls in the Home (This education is for all patients over 65 regardless of symptoms) As you get older, falls are more likely. Thats because your reaction time slows. Your muscles and joints may also get stiffer, making them less flexible. Illness, medications, and vision changes can also affect your balance. A fall could leave you unable to live on your own. To make your home safer, follow these tips: Floors Put nonskid pads under area rugs Remove throw rugs Replace worn floor coverings Tack carpets firmly to each step on carpeted stairs. Put nonskid strips on the edges of uncarpeted stairs Keep floors and stairs free of clutter and cords Arrange furniture so there are clear pathways Clean up any spills right away Bathrooms Install grab bars in the tub or shower Apply nonskid strips or put a nonskid rubber mat in the tub or shower Sit on a bath chair to bathe Use bathmats with nonskid backing Lighting Keep a flashlight in each room Put a nightlight along the pathway between the bedroom and the bathroom Sayda Patient Education Copyright 2008 - 2010 Sayda except where otherwise noted Preventing Falls: Exercises to Improve Balance, Flexibility, Strength, and Staying Power (This education is for all patients over 65 regardless of symptoms) Certain types of exercises may help make you less likely to fall. Try the ones below. Or do other exercises that your healthcare provider suggests. Depending on your health, you may need to start slowly. Dont let that stop you. Even small amounts of exercise can help you. Be sure to talk to yourhealthcare provider before starting any exercise program. Improve Balance Many types of exercise can help improve balance. Juan Manuel chi and yoga are good examples. Heres another one to try. You can do it anytime and almost anywhere. Stand next to a counter or solid support. Push yourself up onto your tiptoes. Hold for 5 seconds. If you start to lose your balance, hold on to the counter. Rest and repeat 5 times. Work up to holding for 20 to 30 seconds, if you can. Increase Flexibility Being more flexible makes it easier for you to move around safely. Try exercises like the seated hamstring stretch. Sit in a chair and put one foot on a stool. Straighten your leg and reach with both hands down either side of your leg. Reach as far down your leg as you can. Hold for about 20 seconds. Go back to the starting position. Then repeat 5 times. Switch legs. Build Strength Resistance exercises help build strength. You can do them without equipment. Or you can use weights, elastic bands, or special machines. One such exercise is called the biceps curl. You can hold a 1 pound weight or even a can of soup. Do this exercise at least 3 times a week. Strive for everyday. Sit up straight in a chair. Keep your elbow close to your body and your wrist straight. Bend your arm, moving your hand up to your shoulder. Then slowly lower your arm. Repeat 5 times. Switch to the other arm. Build Your Staying Power Aerobic exercises make your heart and lungs stronger so you can keep moving longer. Walking and swimming are two of the best types of exercises you can do. Using a stationary bike is great, too. Find an aerobic exercise that you enjoy. Start slowly and build up. Even 5 minutes is helpful. Aimfor a goal of 30 minutes, at least 3 times a week. You dont have to do 30 minutes in one session. Break it up and walk a little throughout the day. More Helpful Tips Start easy. Slowly work up to doing more. Talk with your healthcare provider about the best exercises for you. Call senior centers or health clubs about exercise programs. If needed, have a family member watch you walk every so often to check your stability. Exercise with a friend. Choose an activity you both enjoy. Try exercises that you can do anytime, anywhere. Here are two examples. Have someone with you when you first try these: Practice walking by placing one foot right in front of the other. Stand up and sit down 10 times. Repeat this throughout the day. yuback Patient Education Copyright 2008 yuback except where otherwise noted. Preventing Falls: Moving Safely Using a Cane or Walker (This education is for all patients over 65 regardless of symptoms) Keep the cane away from your feet so you dont trip. A walking aid, such as a cane or walker, can help you stay more independent and avoid falls. Remember to keep your walking aid within easy reach when youre in a chair or in bed. And learn how to use it safely so you dont injure yourself. Using a Cane If you have a stronger side, hold the cane on that side. Get your balance. Move the cane and your weaker leg forward. Support your weight on both the cane and your weaker side. Step with your stronger leg. Start again from step 1. If youre using a folding walker, be sure you know how to lock it open. Check that its locked open before each use. Using a Walker Roll the walker (or lift it, if youre using one without wheels) forward about 12 inches. Step forward with your weaker leg first. Use the walker to help keep your balance. Bring your other foot forward to the center of the walker. Start again from step 1. Helpful Tips Check with your healthcare provider about the right walking aid to use. Ask about a walker with a seat attached. Check the tips of your cane or walker to make sure they have nonskid covers. Move slowly from room to room. Dont christianson. Sit down to get dressed. Use a bienvenido pack or backpack to keep your hands free. Get help for jobs that mean climbing, even on a stepstool. yuback Patient Education Copyright 2008 - 2010 yuback except where otherwise noted. Treating Urinary Incontinence in Men (This education is for all patients over 65 regardless of symptoms) You can't always control the release of urine. You may leak urine. Or you may not be able to hold your urine until you can get to a bathroom. This is called urinary incontinence. The problem can be managed. Talk to your doctor about your treatment options. Taking Medications Prescription medications may help you. They may: Help the sphincter to work better. (This is the muscle that closes to keep urine from leaking out of the bladder.) Help stop the bladder from any too often to push urine out. Help the bladder muscles contract with more force. Help relax the sphincter muscle and allow urine to flow more freely. Making Changes to Your Routine Certain changes in your daily routine may help. These include: Avoiding caffeine and alcohol. Using timed voiding. This is following a schedule for drinking fluids and urinating. Doing Kegel exercises daily. These exercises involve tightening the muscles in your sphincter and around your bladder to help strengthen them. Your doctor can explain how to do them. Using a Catheter A catheter is a narrow tube that is inserted through the urethra into the bladder. It drains urine.A condom catheter covers the penis. It channels urine into a collection bag. It is worn most of thetime. Intermittent catheterization means inserting a catheter to drain the bladder, then removing it. This is done on a regular schedule. Having Surgery If other options don't work, surgery may be recommended. If surgery is an option, your healthcare provider can discuss it with you and explain its risks and benefits. Healing After Prostate Surgery Surgery on the prostate gland can cause incontinence. Most often, the incontinence is only for a short time. It clears up when healing is complete. Very rarely, prostate surgery can result in permanent incontinence. documented in this encounter Progress Notes * Keo Patrick DO - 05/23/2024 2:13 PM EDT SUBJECTIVE: Neo Solis is a 73 year old male. Chief Complaint Patient presents with Follow Up Hospital Follow-Up Recent Admission: Patient was recently admitted to [facility]. The date of discharge was 05/19/2024. Discharge report received and reviewed. HPI: Patient is a 73 year old male with a history of DM Type II, Hyperlipidemia, right frontal CVA in 2016, left Parietal Lobe CVA in 05/2021, Recurrent DVT, PVD and Lumbar Spinal Stenosis that is seen for hospital follow up. The patient was admitted to [facility] due to CVA. He had left facial droop, headache , blurry vision, and aphasia. He has chronic aphasia. New right frontoparietal region CVA was present on MRI. No aspiration present on Speech Therapy evaluation. Patient was readmitted due to lethargy, stroke like symptoms, and headaches. Gabapentin was increased, Duloxetine was started, and Sumatriptan was started.The patient was brought to the visit today by his friend. He has not eaten in 2 days and is lethargic. His gait is abnormal. He is sleeping in the chair in exam room. He is not answering questions. Patient Active Problem List Diagnosis Varicose vein of leg senior care current use of anticoagulant therapy Type 2 diabetes mellitus with hemoglobin A1c goal of less than 8.0% ([facility]) Dyslipidemia, goal LDL below 100 BPH with obstruction/lower urinary tract symptoms History of elevated PSA Lumbar degenerative disc disease HTN, goal below 140/90 Recurrent deep vein thrombosis (DVT) ([facility]) Kidney stone on left side History of [...] stage 3a (HCC) Cerebrovascular disease, arteriosclerotic, post-stroke Migraine without status migrainosus, not intractable Current Outpatient Medications Medication Sig Dispense Refill Acetaminophen 500 MG Oral Tablet Take 3 [...] the morning and 1 Tablet before bedtime. (Patient taking differently: Take 0.5 Tablets by mouth in the morning and 0.5 Tablets before bedtime.) 200 Tablet 3 metFORMIN HCl 1000 MG [...] 2 capsules by mouth in the evening. Magnesium 500 MG Oral Capsule Take 1 Capsule by mouth in the morning and 1 Capsule before bedtime. Riboflavin 400 MG Oral Capsule Take 1 Capsule by mouth in the morning. DULoxetine HCl 30 MG Oral Capsule Delayed Release Particles (Cymbalta) Take 1 Capsule by mouth in the morning. SUMAtriptan Succinate 25 MG Oral Tablet (Imitrex) Take 1 Tablet by mouth every 2 hours as needed for Migraine. Aspirin 81 MG Oral Capsule Take 81 mg by mouth in the morning. (Patient not taking: Reported on 05/20/2024) No current facility-administered medications for this visit. Current and discharge medications have been reconciled. Review of patient's allergies indicates: No Known Allergies OBJECTIVE: BP 94/66 | Pulse 70 | Temp 36.1 C (97 F) | Resp 12 | Ht 1.702 m (5' 7") | Wt 89.5 kg (197 lb 4.8 oz) | SpO2 91% | BMI 30.90 kg/m | BSA 2.06 m REVIEW OF SYSTEMS: Review of Systems Constitutional: Positive for fatigue and unexpected weight change. HENT: Negative for congestion, sore throat and trouble swallowing. Respiratory: Negative for cough, shortness of breath and wheezing. Cardiovascular: Negative for chest pain, palpitations and leg swelling. Gastrointestinal: Negative for abdominal pain, blood in stool, constipation, diarrhea, nausea and vomiting. Musculoskeletal: Positive for gait problem. Neurological: Positive for dizziness, speech difficulty, weakness and headaches. Psychiatric/Behavioral: Negative for confusion and decreased concentration. PHYSICAL EXAM: BP 94/66 | Pulse 70 | Temp 36.1 C (97 F) | Resp 12 | Ht 1.702 m (5' 7") | Wt 89.5 kg (197 lb 4.8 oz) | SpO2 91% | BMI 30.90 kg/m | BSA 2.06 m Physical Exam Vitals and nursing note reviewed. Constitutional: General: He is not in acute distress. Appearance: He is not toxic-appearing. Comments: Confused, somnolent HENT: Head: Normocephalic and atraumatic. Cardiovascular: Rate [...] No edema. Neurological: Mental Status: He is lethargic and confused. Motor: Weakness present. Gait: Gait abnormal. ASSESSMENT/PLAN: Confused (Primary) - GLUCOSE METER, POINT OF CARE May be due to increase in Gabapentin dose in patient with CKD Patient referred to [facility] ED Repeat called to ED Other abnormalities of gait and mobility Due to multiple CVAs in the past and possibly Gabapentin Migraine without status migrainosus, not intractable, unspecified migraine type Suggest decreasing Gabapentin Continue Magnesium and Riboflavin Cerebrovascular disease, arteriosclerotic, post-stroke Type 2 diabetes mellitus with hemoglobin A1c goal of less than 8.0% (HCC) Continue Metformin Hemiplegia and hemiparesis following cerebral infarction affecting left non- dominant side (HCC) Current mild episode of major depressive disorder without prior episode (HCC) Continue Duloxetine 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 (HCC) Dyslipidemia, goal LDL below 100 Continue Atorvastatin 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 Has not ate since Sunday AM. Poc gluc 165 Not eating or drinking. documented in this encounter Plan of Treatment Upcoming Encounters Date Type Department Care Team (Late st Contact Info) Description 06/10/2024 12:30 PM EST Office Visit Neurology [facility] [address] [place] [address] Nikki Santillan PA-C [address] [place] [address] 06/25/2024 11:45 AM EST Office Visit Urology, [facility] [address] [facility] [place] [address] Alfredo Maguire MD [address] [place] [address] 07/10/2024 10:20 AM EST Office Visit Family Practice [address] [place] [address] [address] [place] [address] Keo Patrick, [address] [place] [address] Scheduled Orders Name Type Priority Associated Diagnoses Orde r Schedule GLUCOSE METER, POINT OF CARE Point of Care Testing - Unsolicited Results Routine Confused Ordered: 05/23/2024 Scheduled Procedures Name Priority Associated Diagnoses Date/Ti me COLONOSCOPY FLEXIBLE PROXIMAL DIAGNOSTIC Recall History of colon polyps Health Maintenance Due Date Last Done Comments Adult Wellness Visit 11/08/2017 11/08/2016 Influenza Vaccine (FLU shot) (#1) 2024 06/27/2021, 05/12/2016, 04/20/2015, Additional history exists CKD PHOS USE SMARTSET [id number] 06/29/2024 12/0 07/2022, 06/28/2023, 06/27/2023, Additional history [...] Additional history exists CKD HGB USE SMARTSET [id number] 05/12/202505/12, 05/12/2024, 11/01/2023, Additional history exists Depression [...] as of this encounter Visit Diagnoses Diagnosis Confused- Primary Unspecified psychosis Other abnormalities of gait and mobility Migraine without status migrainosus, not intractable, unspecified migraine type Cerebrovascular disease, arteriosclerotic, post-stroke Cerebral atherosclerosis Type 2 diabetes mellitus with hemoglobin A1c goal of less than 8.0% (HCC) Hemiplegia and hemiparesis following cerebral infarction affecting left non- dominant side (HCC) Current mild episode of major depressive disorder without prior episode (HCC) 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 (HCC) Dyslipidemia, goal LDL below 100 Other and unspecified hyperlipidemia BPH with obstruction/lower urinary tract symptoms Hypertrophy of prostate with urinary obstruction and other lower urinary tract symptoms (LUTS) Degeneration of intervertebral disc of lumbar region with discogenic back pain HTN, goal below 140/90 Unspecified essential hypertension History of CVA (cerebrovascular accident) Transient ischemic attack (TIA), and cerebral infarction without residual deficits Aphasia, post-stroke Unspecified cerebral artery occlusion with cerebral infarction Risk and functional assessment Screening for unspecified condition Hospital discharge follow-up Other follow-up examination documented in this encounter Advance Directives Documents on File Type Date Recorded Patient Manager Forms Expl anation Advance Directives and Living Will 05/13/2022 ADVANCE DIRECTIVE / LIVING WILL Power of Monkey Breeder 05/13/2022 POWER OF A TTORNEY * Full [...] Care Agent (per Health Care Power of Monkey Breeder document) Care Teams Batteryman Relationship Specialty Start Date End Date Keo Patrick DO [address] [place] [address] PCP - General Internal Medicine 03/04/24 documented as of this encounter
--- OUTSIDE RECORDS SUMMARY | 2024-05-28 02:39 | External Medical Summary | Summary of Care ---
Author Name Unknown Organization [facility] Address [address] [facility] [place] [address] Phone [phone] Care Team Providers Care Computer Numerical Control Grinder Name Role Phone Jemimatia Keo Watson DO Primary Care Provider [phone] Encounter Details Date Type Department Care Team (Late st Contact Info) Description 05/26/2024 Population Health External Data Unspecified Department Allergies No known active allergiesdocumented as of this encounter (statuses as of 05/26/2024) Medications Medication Sig Dispensed Refills Start Date [...] hemoglobin A1c goal of less than 7.0% ([facility]),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 ([facility]) TAKE 1 TABLET BY MOUTH TWICE DAILY [...] Tablet (Eliquis)Indication s:Recurrent deep vein thrombosis (DVT) ([facility]) Take 1 Tablet by mouth in the [...] as of this encounter (statuses as of 05/26/2024) Active Problems Problem Noted Date Diagnosed Date [...] protocol #14. 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 0 08/05/2003 Overview: ICD-10 update of inactive term Varicose vein of leg documented as of this encounter (statuses as of 05/26/2024) Resolved Problems Problem Noted Date Diagnosed Date [...] as of this encounter (statuses as of 05/26/2024) Immunizations Name Administration Dates Next Due H1N1 [...] 06/10/2024 12:30 PM EST Office Visit Neurology [facility] [address] [place] [address] Nikki Santillan PA-C [address] [place] [address] 06/25/2024 11:45 AM EST Office Visit Urology, [facility] [address] [facility] [place] [address] Alfredo Maguire MD [address] [place] [address] 07/10/2024 10:20 AM EST Office Visit Family Practice [address] [place] [address] 293 [facility], [place] [address] Keo Patrick DO 293 [facility] [place] [address] Scheduled Procedures Name Priority Associated Diagnoses Date/Ti me COLONOSCOPY FLEXIBLE PROXIMAL DIAGNOSTIC Recall History of colon polyps Health Maintenance Due Date Last Done Comments Adult Wellness Visit 11/08/2017 11/08/2016 Influenza Vaccine (FLU shot) (#1) 2024 06/27/2021, 05/12/2016, 04/20/2015, Additional history exists CKD PHOS USE SMARTSET 02034 06/29/2024 12/0 07/2022, 06/28/2023, 06/27/2023, Additional history [...] Additional history exists CKD HGB USE SMARTSET 89036 05/12/202505/12, 05/12/2024, 11/01/2023, Additional history exists Depression [...] Documents on File Type Date Recorded Patient Propeller Mechanic Expl anation Advance Directives and Living Will 05/13/2022 ADVANCE DIRECTIVE / LIVING WILL Power of Master [employer] 05/13/2022 POWER OF A TTORNEY * Full [...] Care Agent (per Health Care Power of Master [employer] document) Care Teams Computer Numerical Control Grinder Relationship Specialty Start Date End Date Keo Patrick DO [address] [place] [address] PCP - General Internal Medicine 03/04/24 documented as of this encounter
--- OUTSIDE RECORDS SUMMARY | 2024-05-28 02:39 | External Medical Summary ---
Author Name Unknown Address Unknown Organization : Laboratory Report Ordering Provider Test Date Status VASYL ELLIS 05/23/2024 13:32:43 Correction Observation Date Value Abnormality Reference (Units ) Status Glucose Point of Care 05/23/2024 13:32:43 165 Above high normal 70-120 (mg/dL) Correction The specimen used for this t esting had ID confirmed via the Specimen Identification Confirmation/Waiver process. Performing Location
--- OUTSIDE RECORDS SUMMARY | 2024-05-28 02:39 | External Medical Summary | Summary of Care ---
Author Name Unknown Organization [facility] Address [address] [place] [address] Phone [phone] Care Team Providers Care Drywall Carrier Name Role Phone Keo Patrick Shirley VERDIN Primary Care Provider [phone] Encounter Details Date Type Department Care Team (Late st Contact Info) Description 05/23/2024 1:15 PM EDT Nurse Only Family Practice [address] [phone] College, Nurse [facility] [address] [address] Arrived Allergies No known active allergiesdocumented as [...] hemoglobin A1c goal of less than 7.0% ([facility]),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 ([facility]) TAKE 1 TABLET BY MOUTH TWICE DAILY [...] Tablet (Eliquis)Indication s:Recurrent deep vein thrombosis (DVT) ([facility]) Take 1 Tablet by mouth in the [...] protocol #14. 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 Thank you documented in this encounter Plan of Treatment Upcoming Encounters Date Type Department Care Team (Late st Contact Info) Description 06/10/2024 12:30 PM EST Office Visit Neurology [facility] [address] [place] [address] Nikki Santillan PA-C [address] [place] [address] 06/25/2024 11:45 AM EST Office Visit Urology, [facility] [address] [facility] [place] [address] Alfredo Maguire MD [address] [place] [address] 07/10/2024 10:20 AM EST Office Visit Family Practice [address] [place] [address] 293 [place] [address] Keo Patrick, 293 [place] [address] Scheduled Procedures Name Priority Associated Diagnoses Date/Ti me COLONOSCOPY FLEXIBLE PROXIMAL DIAGNOSTIC Recall History of colon polyps Health Maintenance Due Date Last Done Comments Adult Wellness Visit 11/08/2017 11/08/2016 Influenza Vaccine (FLU shot) (#1) 2024 06/27/2021, 05/12/2016, 04/20/2015, Additional history exists CKD PHOS USE SMARTSET 60960 06/29/2024 12/0 07/2022, 06/28/2023, 06/27/2023, Additional history exists Diabetic Eye Exam 08/15/2024 08/15/2023, , 06/05/2022, Additional history exists HbA1c 09/06/2024 03/06/2024, 04/0 10/2023, 06/14/2023, Additional history exists Diabetic Foot Exam 10/31/2024 11/01/2023, 0 11/01/2023, 10/23/2022, Additional history exists GFR 11/10/2024 05/12/2024, 041 , 11/01/2023, Additional history exists Colonoscopy 01/25/2025 01/25/2022, 12/29, 07/18/2018, Additional history exists B-12 03/06/2025 03/06/2024, 07/0 12/2022, 01/12/2022, Additional history exists Albumin/Creatinine Ratio 05/12/2025 024, 06/15/2023, 08/03/2022, Additional history exists CKD HGB USE SMARTSET 21831 05/12/202505/12, 05/12/2024, 11/01/2023, Additional history exists Depression [...] Documents on File Type Date Recorded Patient Mule Tender Expl anation Advance Directives and Living Will 05/13/2022 ADVANCE DIRECTIVE / LIVING WILL Power of Chlorine Cells Operator 05/13/2022 POWER OF A TTORNEY * [...] Care Agent (per Health Care Power of Chlorine Cells Operator document) Care Teams Drywall Carrier Relationship Specialty Start Date End Date Keo Patrick DO [address] [place] [address] PCP - General Internal Medicine 03/04/24 documented as of this encounter
--- OUTSIDE RECORDS SUMMARY | 2024-05-28 02:39 | External Medical Summary | Summary of Care ---
Author Name Unknown Organization [facility] Address [address] [facility] [place] [address] Phone [phone] Care Team Providers Care Physical Biochemist Name Role Phone Keo Patrick DO Primary Care Provider [phone] Reason for Visit * Reason Onset Date Comments Follow Up Hospital Follow-Up 05/23/2024 Encounter Details Date Type Department Care Team (Latest Contact Info) Description 05/23/2024 1:40 PM EDT Office Visit Family Practice [address] [place] [address] [address] [place] [address] Keo Patrick DO [address] [place] [address] Confused*; Other abnormalities of gait and mobility; Migraine without status migrainosus, not intractable, unspecified migraine type; Cerebrovascular disease, arteriosclerotic, post-stroke; Type 2 diabetes mellitus with hemoglobin A1c goal of less than 8.0% ([facility]); Hemiplegia and hemiparesis following cerebral infarction affecting left non-dominant side ([facility]); Current mild episode of major depressive disorder without prior episode ([facility]); 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 ([facility]); Dyslipidemia, goal LDL below 100; BPH [...] hemoglobin A1c goal of less than 7.0% ([facility]),Type 2 diabetes mellitus with stage 3a [...] Tablet (Eliquis)Indicati ons:Recurrent deep vein thrombosis (DVT) ([facility]) Take 1 Tablet by mouth in [...] protocol #14. ICD-10 update of inactive term nursing home current use of anticoagulant therapy 0 08/05/2003 [...] Sign Reading Time Taken Comments Blood Pressure 94/66 05/23/2024 1:36 PM EDT Pulse 70 05/23/2024 1:36 PM EDT [...] 10 times. Repeat this throughout the day. [employer] Patient Education Copyright 2008 [employer] except where otherwise noted. Preventing Falls: Moving [...] that mean climbing, even on a stepstool. [employer] Patient Education Copyright 2008 - 2010 [employer] except where otherwise noted. Treating Urinary Incontinence [...] Recent Admission: Patient was recently admitted to [facility]. The date of discharge was 05/19/2024. Discharge report received and reviewed. HPI: Patient is a 73 year old male with a history of DM Type II, Hyperlipidemia, right frontal CVA in 2016, left Parietal Lobe CVA in 05/2021, Recurrent DVT, PVD and Lumbar Spinal Stenosis that is seen for hospital follow up. The patient was admitted to [facility] due to CVA. He had left facial [...] Problem List Diagnosis Varicose vein of leg nursing home current use of anticoagulant therapy Type 2 diabetes mellitus with hemoglobin A1c goal of less than 8.0% ([facility]) Dyslipidemia, goal LDL below 100 BPH with obstruction/lower urinary tract symptoms History of elevated PSA Lumbar degenerative disc disease HTN, goal below 140/90 Recurrent deep vein thrombosis (DVT) ([facility]) Kidney stone on left side History of CVA (cerebrovascular accident) Aphasia, post-stroke ACP (advance care planning) Hemiplegia and hemiparesis following cerebral infarction affecting left non- dominant side ([facility]) Other abnormalities of gait and mobility Current mild episode of major depressive disorder without prior episode ([facility]) Odontogenic infection of jaw Type 2 diabetes [...] in patient with CKD Patient referred to [facility] ED Repeat called to ED Other abnormalities [...] a few days". Has not ate since Wednesday AM. Poc gluc 165 Not eating or drinking. documented in this encounter Plan of Treatment Upcoming Encounters Date Type Department Care Team (Late st Contact Info) Description 06/10/2024 12:30 PM EST Office Visit Neurology [facility] [address] [place] [address] Nikki Santillan PA-C [address] [place] [address] 06/25/2024 11:45 AM EST Office Visit Urology, [facility] [address] [facility] [place] [address] Alfredo Maguire MD [address] [place] [address] 07/10/2024 10:20 AM EST Office Visit Family Practice [address] [place] [address] 293 [place] [address] Keo Patrick, [address] [place] [address] Scheduled Orders Name Type Priority Associated Diagnoses [...] Additional history exists CKD PHOS USE SMARTSET 61695 06/29/2024 12/0 07/2022, 06/28/2023, 06/27/2023, Additional history [...] Additional history exists CKD HGB USE SMARTSET 17746 05/12/202505/12, 05/12/2024, 11/01/2023, Additional history exists Depression [...] Documents on File Type Date Recorded Patient Separating Machine Operator Expl anation Advance Directives and Living Will 05/13/2022 ADVANCE DIRECTIVE / LIVING WILL Power of Hospice Manager 05/13/2022 POWER OF A TTORNEY * [...] Care Agent (per Health Care Power of Hospice Manager document) Care Teams Physical Biochemist Relationship Specialty Start Date End Date Keo Patrick DO [address] [place] [address] PCP - General Internal Medicine 03/04/24 documented as of this encounter
[2024-05-28 06:04] VITALS: RESP 16
--- NOTE | 2024-05-28 09:00 | History & Physical ---
Date of Service May 28, 2024 Impression / Recommendations Impression NEO PARSONS is a 73-year-old man who currently lives in [place] with his close friends, has a history of depression, strokes (December 2020, April 2021, April 2024), DVT/PE on Eliquis, T2DM, HLD, thrombocytopenia, BPH, and was admitted on 05/27/24 18:42 on a 302 involuntary commitment which expires on 05/31/2024 at 1526 for SI with plan of drowning himself. Diagnostically consistent with unspecified depression with differential including major depressive disorder (lack of motivation, anhedonia, poor sleep, decreased appetite, chronic medical conditions, chronic pain from CAMILO) vs post stroke mood changes vs cognitive changes ( on MOCA on 05/27/2024) vs adjustment disorder with depressed mood vs resolving hypoactive delirium (unlikely as has been consistently oriented and medical team felt medically stable). Discussed medication treatment options. Discussed risks, benefits and alternatives. He is reluctant to continue sertraline but agrees to this for the time being. Cites his ambivalence as due to ongoing frustration with chronic headache for which no medication has offered any benefits to date. He declines option for any other medications to help with depression or headache. Reviewed side effects including but not limited to: GI, CAMILO (though reviewed goal of changing to sertraline given concern Cymbalta may have been contributing to CAMILO), sexual side effects. Mirtazapine would likely offer additional benefits, will revisit his willing for this during his admission. MNPR due to older age and community prevalence of COVID-19 as well as need to promote restful environment at night Overall I spent a total of 75 minutes for this admission including review of chart records, review of labwork, direct evaluation of the patient, counseling the patient, ordering medication, risk assessment, discussion with the psychiatric liason RN and documentation in the electronic health record. (1) Depression with suicidal ideation: (2) History of stroke: (3) Migraine: (4) Frequent headaches: Plan 05/28/2024: The patient was admitted to the [facility] ([facility]) on q15 min checks (behavioral with suicide precautions) for safety. The patient will participate in group, recreational, and milieu therapies and will be offered additional individual and family sessions as clinically appropriate. -Continue sertraline 50mg daily -Attempt to establish with outpatient CM for additional support -Involve his supports and possible stroke survivor group for more connection with others who may be able to relate to his loss of independence and ongoing health challenges 2/2 CVAs -Safety planning -Behavioral activation/improved coping skills Inventory Assets Strengths: supportive relationships, resilient Needs: safety and stabilization, medication adjustment, additional coping skills, increased outpatient services Suicide Risk Level Suicide Risk Level: High-Moderate (q15 min suicide checks) (depression and recent SI with plan and intent and multiple strokes, today denies SI but continues to present with sx of depression including irritability, feels safe in the hospital, feels able to ask for support if needed) Risk Factors Assessment Male: Yes : Yes Do You Have Access To A Gun?: No (confirmed with his friend Roby that all guns were secured ) Health Problems: Yes Mental Health Diagnoses: Yes Substance Use Disorders: No Previous Attempt: No Family History of Suicide: No Previous Psychiatric Hospitalization: No Hopelessness: Yes Protective Factors Assessment Stable Relationships: Yes Supportive Family: Yes (friends) Psychiatric History Identifying Data NEO PARSONS is a 73-year-old man who currently lives in [place] with his close friends, has a history of depression, strokes (December 2020, April 2021, April 2024), DVT/PE on Eliquis, T2DM, HLD, thrombocytopenia, BPH, and was admitted on 05/27/24 18:42 on a 302 involuntary commitment for SI with plan of drowning himself. Chief Complaint "I don't want to be here". History of Present Illness Neo was admitted on a 302 commitment from the medical floor after being admitted medically for ambulatory dysfunction with increased sedation and then noted to have poor po intake, concerns for depression and then when demanding to leave the hospital reported SI with plan and intent to drown himself if he left. His mood then seemed a bit improved yesterday when his friend visited. Additional history per my initial consult note on 05/26/2024: "Neo was seen by psych liason for support and observed to be very depressed and reporting suicidal ideation. Mid-day he started to demand to leave the hospital and there was concern for his decision making capacity given concern for encephalopathy and fluctuating levels of alertness. On my assessment he is fully oriented and standing in his doorway, fully dressed demanding to leave. He reports wanting to leave as hospital doesn't help with his severe headaches. Discussed potential risk of stroke at home and what he would do if BP remains high and ongoing CAMILO to which he reports "hopefully I'll ". When they asked more about his mood he states "I just want to end it all" and reports his two friends he lives with would "probably be upset" but "they'd get over it". States he's been having SI with plan to drown himself in a nearby [place]". Reports access to "several guns" where he lives with his friends. Struggles since stroke which has impacted his speech, motor movements and mood. Later seen with friend, Roby, who he lives with. Roby feels he said those things due to frustration of not being able to leave. Roby isn't concerned about guns as he states there is no ammunition in the home, I discussed strong recommendation to secure the guns or remove them as ammunition could be purchased. He states this is possible but doesn't feel Neo would ever do that. Neo is visibly different from earlier in the day, sitting on the bed with his head down, soft spoken, appears very depressed, minimal verbal engagement. " Today Neo is irritable "it's not a good morning" and reports poor sleep due to disruptions "doors slamming all night". We discussed recent medication change from Cymbalta to sertraline while medically admitted, he continues to have headache and feels none of his medications help. Discussed option to try additional medication to help with insomnia which he declines "I don;t want anymore medication". Reports his mood is "ok" and denies SI but has not gotten out of bed and declines my offer to get set up in front of the TV or have lunch. Focused on his desire to leave but cannot tell me what has changed for him or what he would do if he were to have SI again. Past Psychiatric History Outpatient Services: none Previous Psych Admissions: none Do You Have Access To A Gun?: No (confirmed with his friend Roby that all guns were secured ) History of Previous Suicide Attempt: No Past Medication Trials: Cymbalta Allergies Allergy/AdvReac Type Severity Reaction Status Date / Time No Known Allergies Allergy Verified 05/15/24 15:38 Home Medications Medication Instructions Recorded Confirmed Type apixaban 5 mg tablet (Eliquis) 5 mg PO BID 30 days #60 tabs 02/02/21 05/23/24 Rx metformin 1,000 mg tablet 1,000 mg PO BIDM 02/12/21 05/23/24 History atorvastatin 40 mg tablet (Lipitor) 40 mg PO QAM 03/29/21 05/23/24 History tamsulosin 0.4 mg capsule 0.4 mg PO QAM 08/23/22 05/23/24 History finasteride 5 mg tablet 5 mg PO QAM 05/08/24 05/23/24 History docusate sodium 100 mg capsule 100 mg PO Q OTHER DAY 05/15/24 05/23/24 History (Stool Softener) magnesium 250 mg tablet 500 mg (2 x 250 mg) PO BID #120 05/19/24 05/23/24 Rx tabs propranolol 10 mg tablet 5 mg (1/2 x 10 mg) PO BID #15 tabs 05/19/24 05/23/24 Rx riboflavin (vitamin B2) 400 mg 400 mg PO DAILY #30 tabs 05/19/24 05/23/24 Rx tablet gabapentin 300 mg capsule 300 mg PO BID #0 caps 05/27/24 05/23/24 Rx (Neurontin) losartan 25 mg tablet 25 mg PO QAM #30 tabs 05/27/24 Rx sertraline 50 mg tablet 50 mg PO QAM #30 tabs 05/27/24 Rx Family History Family History of: Doesn't Know Alcohol History Hx of Alcohol Use Over the Past 12 Months: No AUDIT Total Score: 0 Smoking Use Have You Smoked or Used Tobacco Products in the Last 30 Days: No tobacco type: cigarettes Smoking Status: Never smoker Substance History Hx of Prescription Med Misuse Over the Past 12 Months: No Hx of Over the Counter Med Misuse Over the Past 12 Months: No Hx of Inhalent Misuse Over the Past 12 Months: No Hx of Organic Substance Use Over the Past 12 Months: No Hx of Illegal Substances/Street Drug Use Over Past 12 Months: No Problems as a Result of Past Substance Use: None Identified Personal History Employment Status: Disabled Marital Status: Single Beliefs That Will Affect Care: None Patient History Medical History Knee pain, right MAGY (acute kidney injury) Weakness MAGY (acute kidney injury) Elevated troponin Anemia Kidney stones Stroke CVA (6/30/21) > right MCA ischemic stroke, residual mild weakness and short- term memory impairment Pulmonary embolism 1993- on Eliquis Hydronephrosis with urinary obstruction due to ureteral calculus Hypertension Surgical History History of back surgery No hardware History of cystoscopy Cystoscopy, left retropyelogram, Left ureteral stent placement (03/30/21): LMA#4 at [facility] H/O colonoscopy History of tympanoplasty of right ear Status post appendectomy Family History Uncle Family history of diabetes mellitus Other Heart disease Social History Smoking Status: Never smoker Tobacco Type: Declines Second Hand Exposure: No; Do You Dip or Chew Tobacco: No; Hx Alcohol Use: No Hx Substance Use: No Preferred Language: Armenian Communication Ability: Effective 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 Beliefs That Will Affect Care: None marital status: / Current Living Situation: Other Current Living Situation Comment: lives at home with friends current occupation: NOT WORKING How many Children do You have: 0 Feels Safe at Home: Yes Gender Identity: Transgender Male Assistive Devices: Denture - Upper, Denture - Lower and Glasses Review of Systems Review of Systems: All systems reviewed & are unremarkable except as noted in HPI & below Physical Exam Psychiatric: Orientation: alert and oriented x 3 Apperance: appropriately dressed and appropriately groomed Eye Contact: + poor eye contact Motor Behavior: no abnormal motor movements Speech: normal rate/rhythm/volume of speech (soft) Affect: + depressed affect, + flat affect and + irritable affect Mood: + depressed mood and + irritable mood Thought Process: + concrete thought process Thought Content: reality based without delusions Suicidal Thoughts: denies suicidal thoughts (but endorsed SI with plan leading to 302 and unable to safety plan ), denies suicidal plan and denies suicidal intent Homicidal Thoughts: denies homicidal thoughts Hallucinations: no auditory hallucinations and no visual hallucinations Cognition: remote memory grossly intact, attention grossly intact and language grossly intact; + recent memory not intact Estimated Intelligence: consistent with education level Insight: + limited insight Judgment: + poor judgement Vital Signs (Past 24 Hours): Last Vital Signs Temp 35.9 C L 05/28/24 06:00 Pulse 77 05/28/24 06:03 Resp 16 05/28/24 06:00 BP 129/73 05/28/24 06:03 Pulse Ox 98 05/27/24 19:04 O2 Del Method Room Air 05/27/24 19:04 Exam Statement: A physical exam was performed on the medical floor by Dr. Denson for the purposes of medical clearance. I accept that physical as correct and adequate for the purposes of the inpatient physical exam. Results & Data ([facility]) Laboratory Results Laboratory Results - last 24 hr 05/27/24 05/28/24 21:53 05:37 POC Glucose 137 H 130 H Current Inpatient Medications Current Inpatient Medications: Current Inpatient Medications Acetaminophen (Acetaminophen 325 Mg Tab) 650 mg PO Q4H PRN PRN Reason: Headache or Minor Fever Stop: 06/26/24 19:00 Apixaban (Apixaban 5 Mg Tablet) 5 mg PO BID [facility] Stop: 06/26/24 20:59 Last Admin: 05/27/24 22:00 Dose: 5 mg Atorvastatin Calcium (Atorvastatin 40 Mg Tab) 40 mg PO QAM [facility] Stop: 06/27/24 08:59 Dextrose (Dextrose 50% 50 Ml Syringe) 25 - 50 ml IV UD PRN; Protocol PRN Reason: Hypoglycemia Protocol Stop: 06/26/24 21:14 Docusate Sodium (Docusate Sodium 100 Mg Cap) 100 mg PO Q2D@0900 [facility] Stop: 06/27/24 08:59 Finasteride (Finasteride 5 Mg Tab) 5 mg PO QAM [facility] Stop: 06/27/24 08:59 Gabapentin (Gabapentin 300 Mg Cap) 300 mg PO BID@1200,2100 [facility] Stop: 06/26/24 20:59 Last Admin: 05/27/24 22:02 Dose: 300 mg Gabapentin (Gabapentin 300 Mg Cap) 600 mg PO DAILY [facility] Stop: 06/27/24 08:59 Glucagon (Glucagon For Inj 1 Mg Vial) 1 mg SQ UD PRN; Protocol PRN Reason: Hypoglycemia Protocol Stop: 06/26/24 21:14 Glucose (Glucose 40% Gel 15 Gm Tube) 15 - 30 gm PO UD PRN; Protocol PRN Reason: Hypoglycemia Protocol Stop: 06/26/24 21:14 Glucose (Glucose 10 Tab/Tube) 4 - 8 tab PO UD PRN; Protocol PRN Reason: Hypoglycemia Protocol Stop: 06/26/24 21:14 Hydroxyzine HCl (Hydroxyzine Hcl 25 Mg Tab) 50 mg PO HSZ PRN PRN Reason: Insomnia Stop: 06/26/24 19:00 Hydroxyzine HCl (Hydroxyzine Hcl 25 Mg Tab) 25 mg PO Q4H PRN PRN Reason: Anxiety Stop: 06/26/24 19:00 Insulin Aspart (Insulin Aspart Per Unit Charge) 0 units SC ACHS [facility] Stop: 06/26/24 21:59 Last Admin: 05/27/24 22:09 Dose: Not Given Losartan Potassium (Losartan Potassium 25 Mg Tab) 25 mg PO QAM [facility] Stop: 06/27/24 08:59 Magnesium Oxide (Magnesium Oxide 400 Mg Tab) 400 mg PO BID [facility] Stop: 06/26/24 20:59 Last Admin: 05/27/24 22:01 Dose: 400 mg Miscellaneous (Carbohydrates For Hypoglycemia ) 15 - 30 gm PO UD PRN PRN Reason: Hypoglycemia Treatment Stop: 06/26/24 21:14 Miscellaneous Information (Pharmacy Glycemic Mgmt Consult) 1 each N/A UD PRN; Protocol PRN Reason: Consult Stop: 06/26/24 21:02 Propranolol HCl (Propranolol Hcl 10 Mg Tab) 5 mg PO BID [facility] Stop: 06/26/24 20:59 Last Admin: 05/27/24 22:02 Dose: 5 mg Sertraline HCl (Sertraline Hcl 50 Mg Tablet) 50 mg PO QAM [facility] Stop: 06/27/24 08:59 Sodium Chloride (Sodium Chloride 0.65% Na Soln 45 Ml ([place])) 1 - 2 sprays NA PRN PRN PRN Reason: Nasal Dryness/Congestion Stop: 06/26/24 19:00 Tamsulosin HCl (Tamsulosin Hcl 0.4 Mg Cap) 0.4 mg PO QAM [facility] Stop: 06/27/24 08:59
[2024-05-28] MEDS: ATORVASTATIN 40 MG TAB PO SCH (09:51)
[2024-05-28] MEDS: LOSARTAN POTASSIUM 25 MG TAB PO SCH (09:52)
[2024-05-28] MEDS: GABAPENTIN 300 MG CAP PO SCH (09:52)
[2024-05-28] MEDS: FINASTERIDE 5 MG TAB PO SCH (09:52)
[2024-05-28] MEDS: TAMSULOSIN HCL 0.4 MG CAP PO SCH (09:54)
[2024-05-28] MEDS: SERTRALINE HCL 50 MG TABLET PO SCH (09:54)
[2024-05-28] MEDS: DOCUSATE SODIUM 100 MG CAP PO SCH (09:56)
--- NOTE | 2024-05-28 14:11 | Pharmacy Report ---
Pharmacy Glycemic Short Note 2 - Date of Service May 28, 2024 - Glycemic Short BSG Results (Last 24 hours): 05/27/24 05/28/24 05/28/24 21:53 05:37 09:47 POC Glucose 137 H 130 H 137 H 05/28/24 12:56 POC Glucose 144 H OUTPATIENT ANTIDIABETIC REGIMEN: * metformin 1 g PO BIDM HbA1c: 7.1% (05/09/24) ASSESSMENT: * GF is a 73 year old male admitted on 05/23 due to weakness/lethargy w/ MAGY (now resolved) * Subsequently hospitalized on [facility] via 302 * Given recent MAGY - will hold off on metformin for now and continue with SC bolus insulin * No hyperglycemic stressors identified PLAN FOR INPATIENT GLYCEMIC CONTROL: * Hold outpatient oral diabetes medications * Basal insulin * Hold today * Reassess in AM, consider low-dose basal pending fasting blood sugar * Bolus insulin * NovoLog per scale ACHS or Q6hrs while NPO * Goal Range: Low 110 mg/dL - High 140 mg/dL * Correction Factor: 25 mg/dL/unit * Nutritional / Prandial insulin per carb ratio of 1 unit per 9 grams CHO consumed
--- NOTE | 2024-05-29 08:57 | Psychiatric Progress Note ---
Date of Service May 29, 2024 Impression / Recommendations Impression MICHAELLE PARSONS is a 73-year-old man who currently lives in [place] with his close friends, has a history of depression, strokes (December 2020, April 2021, April 2024), DVT/PE on Eliquis, T2DM, HLD, thrombocytopenia, BPH, and was admitted on 05/27/24 18:42 on a 302 involuntary commitment which expires on 05/31/2024 at 1526 for SI with plan of drowning himself. Diagnostically consistent with unspecified depression with differential including major depressive disorder (lack of motivation, anhedonia, poor sleep, decreased appetite, chronic medical conditions, chronic pain from CAMILO) vs post stroke mood changes vs cognitive changes ( on MOCA on 05/27/2024) vs adjustment disorder with depressed mood vs resolving hypoactive delirium (unlikely as has been consistently oriented and medical team felt medically stable). A: Some oppositional behaviors yesterday seemingly due to concern he would be tricked into remaining in the hospital. After reassurance today he has been engaging in safety planning, eating and drinking and is denying SI with some improvement in mood and agreeing to outpatient support of CM. MNPR due to older age and community prevalence of COVID-19 as well as need to promote restful environment at night Overall, I spent a total of 45 minutes on this case including meeting with the patient, reviewing the chart, nursing report, multidisciplinary team meeting, orders, and documentation. (1) Depression with suicidal ideation: (2) History of stroke: (3) Migraine: (4) Frequent headaches: Plan 05/29/2024: Continue current medications and tx plan. 05/28/2024: The patient was admitted to the [facility] ([facility] mental health unit) on q15 min checks (behavioral with suicide precautions) for safety. The patient will participate in group, recreational, and milieu therapies and will be offered additional individual and family sessions as clinically appropriate. -Continue sertraline 50mg daily -Attempt to establish with outpatient CM for additional support -Involve his supports and possible stroke survivor group for more connection with others who may be able to relate to his loss of independence and ongoing health challenges 2/2 CVAs -Safety planning -Behavioral activation/improved coping skills Inventory Assets Strengths: supportive relationships, resilient Needs: safety and stabilization, medication adjustment, additional coping skills, increased outpatient services Suicide Risk Level Suicide Risk Level: Moderate (q15 min suicide checks) (depression and recent SI with plan and intent and multiple strokes, but continuing to deny SI today, engaging more, feels safe in the hospital, feels able to ask for support if needed) Risk Factors Assessment Male: Yes : Yes Do You Have Access To A Gun?: No (confirmed with his friend Roby that all guns were secured ) Health Problems: Yes Mental Health Diagnoses: Yes Substance Use Disorders: No Previous Attempt: No Family History of Suicide: No Previous Psychiatric Hospitalization: No Hopelessness: Yes Protective Factors Assessment Stable Relationships: Yes Supportive Family: Yes (friends) Interval History Identifying Information MICHAELLE PARSONS is a 73-year-old man who currently lives in [place] with his close friends, has a history of depression, strokes (December 2020, April 2021, April 2024), DVT/PE on Eliquis, T2DM, HLD, thrombocytopenia, BPH, and was admitted on 05/27/24 18:42 on a 302 involuntary commitment for SI with plan of drowning himself. Chief Complaint "Ok". Review of Systems Sleep Information Total Hours of Sleep: 6.30 Meal Information Percent Meal Consumed - Breakfast: 0 Percent Meal Consumed - Lunch: 0 Percent Meal Consumed - Dinner: 0 Subjective Subjective Patient was seen & assessed and interval progress reviewed with treatment team nursing and social work. Didn't leave his room yesterday, isolative, irritable, declined meals, refused evening medications and refused blood sugar checks. This morning after encouragement he took his medication and came into the dayroom for his meals, has been drinking and having snacks too. He later participated with safety planning, review of his treatment plan and agreed to outpatient CM referral after reassurance that he wasn't being "tricked" into signing paperwork or doing things that would make it so it would have to stay in the hospital. Brightens in discussing his eagerness to return home with his friends. Tells me he likes "basically everything" in terms of the food he has at home. Denies SI, still having headache but he states this has been his baseline. Physical Exam Psychiatric Orientation: alert and oriented x 3 Apperance: appropriately dressed and appropriately groomed Eye Contact: good eye contact Motor Behavior: no abnormal motor movements Speech: normal rate/rhythm/volume of speech Affect: + constricted affect Mood: + anxious mood Thought Process: + concrete thought process Thought Content: reality based without delusions Suicidal Thoughts: denies suicidal thoughts, denies suicidal plan and denies suicidal intent Homicidal Thoughts: denies homicidal thoughts Hallucinations: no auditory hallucinations and no visual hallucinations Cognition: remote memory grossly intact, attention grossly intact and language grossly intact; + recent memory not intact Estimated Intelligence: consistent with education level Insight: + limited insight Judgment: + limited judgement Vital Signs (Past 24 Hours) Last Vital Signs Temp 35.9 C L 05/28/24 06:00 Pulse 77 05/28/24 06:03 Resp 16 05/28/24 06:00 BP 129/73 05/28/24 06:03 Pulse Ox 98 05/27/24 19:04 O2 Del Method Room Air 05/27/24 19:04 Results & Data ([facility]) Laboratory Results Laboratory Results - last 24 hr 05/28/24 05/28/24 05/29/24 09:47 12:56 08:19 POC Glucose 137 H 144 H 144 H Current Inpatient Medications Current Inpatient Medications: Current Inpatient Medications Acetaminophen (Acetaminophen 325 Mg Tab) 650 mg PO Q4H PRN PRN Reason: Headache or Minor Fever Stop: 06/26/24 19:00 Apixaban (Apixaban 5 Mg Tablet) 5 mg PO BID WILMER Stop: 06/26/24 20:59 Last Admin: 05/29/24 08:08 Dose: 5 mg Atorvastatin Calcium (Atorvastatin 40 Mg Tab) 40 mg PO QAM WILMER Stop: 06/27/24 08:59 Last Admin: 05/29/24 08:08 Dose: 40 mg Dextrose (Dextrose 50% 50 Ml Syringe) 25 - 50 ml IV UD PRN; Protocol PRN Reason: Hypoglycemia Protocol Stop: 06/26/24 21:14 Docusate Sodium (Docusate Sodium 100 Mg Cap) 100 mg PO Q2D@0900 WILMER Stop: 06/27/24 08:59 Last Admin: 05/28/24 09:56 Dose: 100 mg Finasteride (Finasteride 5 Mg Tab) 5 mg PO QAM WILMER Stop: 06/27/24 08:59 Last Admin: 05/29/24 08:08 Dose: 5 mg Gabapentin (Gabapentin 300 Mg Cap) 300 mg PO BID@1200,2100 [facility] Stop: 06/26/24 20:59 Last Admin: 05/28/24 20:55 Dose: Not Given Gabapentin (Gabapentin 300 Mg Cap) 600 mg PO DAILY WILMER Stop: 06/27/24 08:59 Last Admin: 05/29/24 08:08 Dose: 600 mg Glucagon (Glucagon For Inj 1 Mg Vial) 1 mg SQ UD PRN; Protocol PRN Reason: Hypoglycemia Protocol Stop: 06/26/24 21:14 Glucose (Glucose 40% Gel 15 Gm Tube) 15 - 30 gm PO UD PRN; Protocol PRN Reason: Hypoglycemia Protocol Stop: 06/26/24 21:14 Glucose (Glucose 10 Tab/Tube) 4 - 8 tab PO UD PRN; Protocol PRN Reason: Hypoglycemia Protocol Stop: 06/26/24 21:14 Hydroxyzine HCl (Hydroxyzine Hcl 25 Mg Tab) 50 mg PO HSZ PRN PRN Reason: Insomnia Stop: 06/26/24 19:00 Hydroxyzine HCl (Hydroxyzine Hcl 25 Mg Tab) 25 mg PO Q4H PRN PRN Reason: Anxiety Stop: 06/26/24 19:00 Insulin Aspart (Insulin Aspart Per Unit Charge) 0 units SC ACHS WILMER Stop: 06/26/24 21:59 Last Admin: 05/28/24 20:55 Dose: Not Given Losartan Potassium (Losartan Potassium 25 Mg Tab) 25 mg PO QAM WILMER Stop: 06/27/24 08:59 Last Admin: 05/29/24 08:09 Dose: 25 mg Magnesium Oxide (Magnesium Oxide 400 Mg Tab) 400 mg PO BID WILMER Stop: 06/26/24 20:59 Last Admin: 05/29/24 08:09 Dose: 400 mg Miscellaneous (Carbohydrates For Hypoglycemia ) 15 - 30 gm PO UD PRN PRN Reason: Hypoglycemia Treatment Stop: 06/26/24 21:14 Miscellaneous Information (Pharmacy Glycemic Mgmt Consult) 1 each N/A UD PRN; Protocol PRN Reason: Consult Stop: 06/26/24 21:02 Propranolol HCl (Propranolol Hcl 10 Mg Tab) 5 mg PO BID WILMER Stop: 06/26/24 20:59 Last Admin: 05/29/24 08:09 Dose: 5 mg Sertraline HCl (Sertraline Hcl 50 Mg Tablet) 50 mg PO QAM WILMER Stop: 06/27/24 08:59 Last Admin: 05/29/24 08:09 Dose: 50 mg Sodium Chloride (Sodium Chloride 0.65% Na Soln 45 Ml ([place]les)) 1 - 2 sprays NA PRN PRN PRN Reason: Nasal Dryness/Congestion Stop: 06/26/24 19:00 Tamsulosin HCl (Tamsulosin Hcl 0.4 Mg Cap) [facility] Stop: 06/27/24 08:59 Last Admin: 05/29/24 08:09 Dose: 0.4 mg Post Discharge Appointments Primary Care Physician Name Of Family Doctor/PCP: Mikey Patrick
[2024-05-30 06:49] VITALS: TEMP 97.7
--- NOTE | 2024-05-30 09:04 | Discharge Summary ---
Date of Service May 30, 2024 History of Present Illness Neo was admitted on a 302 commitment from the medical floor after being admitted medically for ambulatory dysfunction with increased sedation and then noted to have poor po intake, concerns for depression and then when demanding to leave the hospital reported SI with plan and intent to drown himself if he left. His mood then seemed a bit improved yesterday when his friend visited. Additional history per my initial consult note on 05/26/2024: "Neo was seen by psych liason for support and observed to be very depressed and reporting suicidal ideation. Mid-day he started to demand to leave the hospital and there was concern for his decision making capacity given concern for encephalopathy and fluctuating levels of alertness. On my assessment he is fully oriented and standing in his doorway, fully dressed demanding to leave. He reports wanting to leave as hospital doesn't help with his severe headaches. Discussed potential risk of stroke at home and what he would do if BP remains high and ongoing CAMILO to which he reports "hopefully I'll ". When they asked more about his mood he states "I just want to end it all" and reports his two friends he lives with would "probably be upset" but "they'd get over it". States he's been having SI with plan to drown himself in a nearby "big [place]". Reports access to "several guns" where he lives with his friends. Struggles since stroke which has impacted his speech, motor movements and mood. Later seen with friend, Roby, who he lives with. Roby feels he said those things due to frustration of not being able to leave. Roby isn't concerned about guns as he states there is no ammunition in the home, I discussed strong recommendation to secure the guns or remove them as ammunition could be purchased. He states this is possible but doesn't feel Neo would ever do that . Neo is visibly different from earlier in the day, sitting on the bed with his head down, soft spoken, appears very depressed, minimal verbal engagement. " Today Neo is irritable "it's not a good morning" and reports poor sleep due to disruptions "doors slamming all night". We discussed recent medication change from Cymbalta to sertraline while medically admitted, he continues to have headache and feels none of his medications help. Discussed option to try additional medication to help with insomnia which he declines "I don;t want anymore medication". Reports his mood is "ok" and denies SI but has not gotten out of bed and declines my offer to get set up in front of the TV or have lunch. Focused on his desire to leave but cannot tell me what has changed for him or what he would do if he were to have SI again. Physical Exam Vital Signs (Past 24 Hours) Last Vital Signs Temp 36.5 C 05/30/24 06:46 Pulse 87 05/30/24 06:48 Resp 16 05/30/24 06:46 BP 143/87 H 05/30/24 06:48 Pulse Ox 98 05/27/24 19:04 O2 Del Method Room Air 05/27/24 19:04 Principal Diagnosis Unspecified Depressive Disorder Psychiatric Data See daily stay summary. In short, patient was engaged with the social/therapeutic milieu of the unit, safety was maintained and the patient was cooperative with care. Medication changes included continuation of sertraline which was started for depression and discontinuation of Cymbalta due to concerns this could be worsening headache and elevated blood pressure and they tolerated this well. A support session was held and safety plan was completed prior to discharge. During his medical admission, prior to inpatient psychiatry, recommendation was made for outpatient sleep study and encourage ongoing outpatient neurology involvement (he has appointment scheduled) to explore potential additional treatment options for his chronic headaches as this is likely to be one of the most significant modifiable risk factors for improving his quality of life and lessening his chronic risk of self-harm. He participated in safety planning and in discussions about ways to seek support and recognizing warning signs and utilizing coping skills. Reviewed ways to have their safety plan and contacts easily available should thoughts of SI re-emerge in the future. Reviewed importance of seeking emergency care should SI intensify, worsen or should he feel unsafe in the future which he agrees to do. 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 Day of Discharge Assessment Today the patient voices readiness for discharge. They note improvement in mood and anxiety. They deny thoughts of harm to self or others. Thoughts are organized and they are clinically improved from admission. There is no evidence of psychosis. They improved in the hospital with support and medication adjustments. They agree to take medications as prescribed and keep follow-up appointments. At the time of the discharge they are deemed to be stable and appropriate for outpatient level of care. They are not deemed to be at imminent risk of harm to self or others. They are aware of emergency and crisis services. Knows to call 911 or go to nearest emergency care center if in a crisis which cannot be handled as an outpatient. Suicide risk assessment: Acute risk is low given improvement in mood and denial of SI, lack of access to lethal means, hopefulness and improvement in appetite. Chronic risk is moderate to high given some non-modifiable risk factors: periods of impulsivity, emotional reactivity, chronic illness, physical pain (chronic intractable headache), but also with protective factors including good social support, sense of responsibility to family and social supports, outpatient care in place, positive problem solving, willingness to engage with treatment. Counseled on ways to reduce acute and chronic risk including engaging with outpatient providers, using safety plan if needed, utilizing supports, taking medication, and using coping skills. Modifiable risk factors of SI and depression were addressed during hospitalization through development of new coping skills, support meeting, safety planning, and medication adjustments. Discharge physical exam: See admission H&P, MSE per above and day of discharge summary. Overall, I spent a total of 35 minutes on this case including meeting with the patient, reviewing the chart, nursing report, multidisciplinary team meeting, discharge orders, anticipatory planning, safety planning, risk assessment and documentation. Transition of Care Transition Of Care Record: was reviewed with the patient Advance Directives Advance Directives Information Provided: Yes Advance Directives: No Mental Health Advance Directive: No Advance Directives on File: No Living Will: Yes (Patient states he does have a living will) Power of Bench Grinder: Yes (patient reports Medical POA) Power of Bench Grinder Name: Ronit Mendes Advance Directives Reason:: Declines as Mental Health Visit. Suicide Risk Level Suicide Risk Level Comments: Acute risk is low, see above Risk Factors Assessment Male: Yes : Yes Do You Have Access To A Gun?: No (confirmed with his friend Roby that all guns were secured ) Health Problems: Yes Mental Health Diagnoses: Yes Substance Use Disorders: No Previous Attempt: No Family History of Suicide: No Previous Psychiatric Hospitalization: No Hopelessness: No Protective Factors Assessment Stable Relationships: Yes Supportive Family: Yes (friends) Discharge Data Lab Results 05/27/24 05/28/24 05/28/24 21:53 05:37 09:47 POC Glucose 137 H 130 H 137 H 05/28/24 05/29/24 05/29/24 12:56 08:19 11:34 POC Glucose 144 H 144 H 125 H 05/29/24 17:06 POC Glucose 154 H Hospital Course (1) Depression with suicidal ideation: (2) History of stroke: (3) Migraine: (4) Frequent headaches: Plan 05/30/2024: Mood improved. He had a good evening, watched a movie with peers, engaged in safety planning, ate all of his dinner. Reports he slept well overnight. He feels safe and desires discharge today. Support meeting today. 05/29/2024: Continue current medications and tx plan. 05/28/2024: [facility] ([facility] mental health unit) on q15 min checks (behavioral with suicide precautions) for safety. The patient will participate in group, recreational, and milieu therapies and will be offered additional individual and family sessions as clinically appropriate. 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 Name of Hogshead Stock Clerk: [facility] manager developmental Phone Number for Hogshead Stock Clerk: [phone] Case Management Appointment Comment: manager developmental will contact you after dis charge to schedule initial appt Post Discharge Appointments Primary Care Physician Name Of Family Doctor/PCP: Mikey Patrick Primary Care Discharge Plan Discharge Items Patient Disposition: Home - Self-Care Reason For Visit: UNSPECIFIED DEPRESSIVE DISORDER Discharge Diagnosis: Unspecified Depressive Disorder Activity: Resume your previous activity Non-emergency contact: Primary Care Provider and Upper Cutter Machine Call non-emergency contact if: you have any medication questions and your symptoms worsen Follow-up/Referrals: Keo Patrick, [Primary Care Provider] - Diet: Regular Addtl Attending Provider Instructions: SPECIAL CARE INSTRUCTIONS: 1. Follow through with your scheduled aftercare appointments. If unable to keep an appointment, please call to reschedule. 2. Take your medication only as prescribed. Medication should not be changed or stopped without the approval of your doctor. In the event of worsening symptoms or concerns about side effects, contact your doctor immediately. 3. Utilize new healthy coping skills, anger management skills, and stress management skills learned during your hospitalization. Journal feelings and process them with a support person. Identify stressors or situations that may result in relapse, deterioration or inappropriate behaviors and develop a plan to deal with those issues. 4. If your coping skills are ineffective and you are in crisis, contact your outpatient providers for direction. If unable to reach your providers, please call the [facility] CRISIS LINE AT , go to the [facility] walk-in center at [address] [place] [address] A, [place], or go to the closest Emergency Room. 5. Avoid alcohol and un-prescribed drugs. 6. You have been provided with the Mental Health Advance Directives Pamphlet for your review. 7. Your condition is stable for discharge to outpatient level of care, but recovery is an ongoing process. Ifthoughts to harm yourself or others return, follow the safety plan developed during your stay. Planning for a safe return home includes securing weapons. Our treatment team recommends weaponsbe removed from the home until your outpatient provider reassesses your progress. In rare cases where the items themselvescannot be removed, guns and ammunitionshould be secured separatelyand keys stored by a reliable personoutside of the home. If you were admitted on an involuntary commitment, the police or other legal authorities may be involved in this process. AFTERCARE APPOINTMENTS: * Please call your insurance company prior to your scheduled appointment to confirm your aftercare providers are covered. Take your insurance information to your appointments. WHO TO CALL AND WHEN: Medical Emergencies: For questions or emergencies related to your hospital stay, please contact the Inpatient Behavioral Health Unit at [phone]. A outreach clinician is on-call 19/02 for the Behavioral Health Unit for emergencies At any time you feel your situation is an emergency, you may also call 911 immediately. National Crisis Hotline: 980 Pending Studies at Discharge: No Stand-Alone Forms: My [facility] Medications and DC Order Prescriptions: New gabapentin 300 mg Capsule 300 mg PO BID@1200,2100 30 Days Qty: 60 0RF Continued Eliquis 5 mg Tablet 5 mg PO BID 30 Days Qty: 60 3RF metformin 1,000 mg tablet 1,000 mg PO BIDM tamsulosin 0.4 mg capsule 0.4 mg PO QAM atorvastatin [Lipitor] 40 mg tablet 40 mg PO QAM finasteride 5 mg tablet 5 mg PO QAM docusate sodium [Stool Softener] 100 mg Capsule 100 mg PO Q OTHER DAY propranolol 10 mg Tablet 5 mg PO BID Qty: 15 0RF riboflavin (vitamin B2) 400 mg tablet 400 mg PO DAILY Qty: 30 0RF magnesium 250 mg tablet 500 mg PO BID Qty: 120 0RF losartan 25 mg Tablet 25 mg PO QAM 30 Days Qty: 30 0RF sertraline 50 mg Tablet 50 mg PO QAM 30 Days Qty: 30 0RF Discontinued gabapentin [Neurontin] 300 mg capsule 300 mg PO BID Qty: 0 0RF Rx Instructions: 600mg qAm, 300mg at noon, 300mg HS Discharge Orders: Discharge Order (Routine); Ordered 05/30/24 Ordered By: Solange Barry Admission Data Admit Date/Time: 05/27/24 18:42 Attending Provider: Solange Barry Admit Provider: Solange Barry Primary Care Provider: Keo Patrick Coding Level of Care Code 45438 D/C day mgmt > 30 min Diagnoses Depression with suicidal ideation F32.A; R45.851 History of stroke Z86.73 Migraine G43.909 Frequent headaches R51.9
--- NOTE | 2024-05-30 09:57 | Pharmacy Report ---
Pharmacy Glycemic Short Note 2 - Date of Service May 30, 2024 - Glycemic Short BSG Results (Last 24 hours): 05/29/24 05/29/24 11:34 17:06 POC Glucose 125 H 154 H OUTPATIENT ANTIDIABETIC REGIMEN: * metformin 1 g PO BIDM HbA1c: 7.1% (05/09/24) ASSESSMENT: 05/30: * Neo received 9 units of bolus insulin yesterday * Fasting BSG within goal range, no indication for basal insulin at this time * Diet inconsistent, no apparent issues with NovoLog parameters at this time, no change indicated. 05/28: * GF is a 73 year old male admitted on 05/23 due to weakness/lethargy w/ MAGY (now resolved) * Subsequently hospitalized on U via 302 * Given recent MAGY - will hold off on metformin for now and continue with SC bolus insulin * No hyperglycemic stressors identified PLAN FOR INPATIENT GLYCEMIC CONTROL: * Hold outpatient oral diabetes medications * Basal insulin * Continue to hold * Bolus insulin * NovoLog per scale ACHS or Q6hrs while NPO * Goal Range: Low 110 mg/dL - High 140 mg/dL * Correction Factor: 25 mg/dL/unit * Nutritional / Prandial insulin per carb ratio of 1 unit per 9 grams CHO consumed
[2024-05-30 10:04] VITALS: BP 129/73; PULSE 77
== END 2024-05-30 10:30 | disposition home or self-care (01) | DRG 881 ==
LOC: 3S 18:42

== ENCOUNTER 2024-10-22 16:11 | Inpatient (IN) ==
[2024-10-22] MEDS: OPTIRAY 320 125ml IV ONE (16:26)
--- NOTE | 2024-10-22 16:56 | CT Scan Report ---
EXAM: CT Angiography Head and Neck With Intravenous Contrast INDICATION: Dizziness. Dysarthria. TECHNIQUE: [facility]/head and neck CT angiography protocol performed with intravenous contrast. Sagittal and coronal reformatted images were created and reviewed. This CT exam was performed using one or more of the following dose reduction techniques: automated exposure control, adjustment of the mA and/or kV according to patient size, and/or use of iterative reconstruction technique. MIP reconstructed images were created and reviewed. CONTRAST: 118ml of Optiray 320 was administered intravenously. COMPARISON: 05/15/2024 FINDINGS: HEAD: Right anterior cerebral artery: No abnormality noted. No occlusion or significant stenosis. Anterior communicating artery is present. No aneurysm. Right middle cerebral artery: No abnormality noted. No occlusion or significant stenosis. No aneurysm. Right posterior cerebral artery: No abnormality noted. No occlusion or significant stenosis. No aneurysm. Right intracranial internal carotid artery: Minimal calcific plaque. No significant stenosis. No dissection or occlusion. Right intracranial vertebral artery: No abnormality noted. No significant stenosis. No dissection or occlusion. Left anterior cerebral artery: No abnormality noted. No occlusion or significant stenosis. No aneurysm. Left middle cerebral artery: No abnormality noted. No occlusion or significant stenosis. No aneurysm. Left posterior cerebral artery: No abnormality noted. No occlusion or significant stenosis. No aneurysm. Left intracranial internal carotid artery: Minimal calcific plaque. No significant stenosis. No dissection or occlusion. Left intracranial vertebral artery: No abnormality noted. No significant stenosis. No dissection or occlusion. Basilar artery: No abnormality noted. No occlusion or significant stenosis. No aneurysm. Other vasculature: Patent dural venous sinuses. No vascular malformation. Mastoid air cells: Stable chronic mastoid air cell thickening. No occlusion. NECK: Right common carotid artery: No abnormality noted. No significant stenosis. No dissection or occlusion. Right extracranial internal carotid artery: No abnormality noted. No significant stenosis. No dissection or occlusion. Right external carotid artery: No abnormality noted. No occlusion. Right extracranial vertebral artery: No abnormality noted. No significant stenosis. No dissection or occlusion. Left common carotid artery: No abnormality noted. No significant stenosis. No dissection or occlusion. Left extracranial internal carotid artery: Minimal calcific plaque noted.. No significant stenosis. No dissection or occlusion. Left external carotid artery: No abnormality noted. No occlusion. Left extracranial vertebral artery: No abnormality noted. No significant stenosis. No dissection or occlusion. Lung apices: No significant abnormality noted. HEAD and NECK: Bones/joints: No significant abnormality. Soft tissues: No abnormality noted. CAROTID STENOSIS REFERENCE USING NASCET CRITERIA: % ICA stenosis = (1 - narrowest ICA diameter/diameter of distal cervical ICA) x 100. Mild - <50% stenosis. Moderate - 50-69% stenosis. Severe - 70-94% stenosis. Near occlusion - 95-99% stenosis. Tell Occluded - 100% stenosis. IMPRESSION: No large vessel occlusion, aneurysm, dissection or significant arterial stenosis in the head or neck. Findings discussed by phone with Dr. Johnson at 4:50 PM 10/22/2024 ACT 112: N/A Electronically signed by Sangita Osman 10-22-2024 4:55 PM
--- NOTE | 2024-10-22 16:56 | CT Scan Report ---
EXAM: CT Head Without Intravenous Contrast INDICATION: Garbled speech and shortness of breath. Dizziness. TECHNIQUE: Axial computed tomography images of the head/brain without intravenous contrast. Sagittal and/or coronal reformats are provided. Sagittal and coronal reformatted images were created and reviewed. This CT exam was performed using one or more of the following dose reduction techniques: automated exposure control, adjustment of the mA and/or kV according to patient size, and/or use of iterative reconstruction technique. COMPARISON: 07/09/2024 FINDINGS: Limitations: None. 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 No acute infarct. No extra-axial fluid collection or hemorrhage. No significant white matter disease. Bones/joints: No acute changes. Soft tissues: No significant abnormality noted. Vasculature: No acute abnormality noted. Sinuses: No layering fluid in the visualized portions of the paranasal sinuses. Mastoid air cells: Stable chronic bilateral mastoid air cell sclerosis without effusion. Orbits: No significant abnormality noted. IMPRESSION: Stable chronic changes. No acute disease. Findings discussed by phone with Dr. Johnson at 4:50 PM 10/22/2024 ACT 112: N/A Electronically signed by Sangita Osman 10-22-2024 4:55 PM
[2024-10-22 17:02] LABS: Basophils # (auto) 0.06 K/uL (0.00-0.20); Basophils % (auto) 0.7 %; Eosinophils # (auto) 0.12 K/uL (0.00-0.50); Eosinophils % (auto) 1.4 %; Hematocrit (blood only) 33.8 % (42.0-52.0); Hemoglobin 11.6 g/dl (14.0-18.0); Immature Granulocytes # (auto) 0.16 K/uL (0.01-0.20); Immature Granulocytes % (auto) 1.9 %; Lymphocytes # (auto) 1.42 K/uL (1.20-3.40); Lymphocytes % (auto) 16.6 %; Mean Corpuscular Hemoglobin 29.9 pg (25.0-34.0); Mean Corpuscular Hgb Conc 34.3 g/dL (32.0-36.0); Mean Corpuscular Volume 87.1 fL (80.0-100.0); Mean Platelet Volume 10.2 fL (9.4-12.4); Monocytes # (auto) 0.59 K/uL (0.11-0.59); Monocytes % (auto) 6.9 %; Neutrophils # (auto) 6.19 K/uL (1.40-6.50); Neutrophils % (auto) 72.5 %; Platelet Count 220 K/uL (130-400); RDW Coefficient of Variation 14.9 % (11.5-14.5); Red Blood Count 3.88 M/uL (4.70-6.10); White Blood Count 8.54 K/ul (4.8-10.8)
[2024-10-22 17:26] LABS: INR 1.1 (0.9-1.1); Partial Thromboplastin Ratio 1.2; Partial Thromboplastin Time 32 Seconds (21-31); Prothrombin Time 11.7 Seconds (9.0-12.0)
--- NOTE | 2024-10-22 17:47 | Emergency Department Note ---
Impression & Plan Word finding difficulty, Brain TIA ED Provider Note NAME: MICHAELLE PARSONS AGE: 74 SEX: M : 1950 ARRIVES VIA: Walk-In INFORMANT: Patient, ED PROVIDER(S): Iván Johnson MD CHIEF COMPLAINT: Word find difficulties HPI: This is a 74-year-old male presenting for word find difficulties. Patient was at a doctor's appointment for repeat evaluation after having acute diverticulitis. This was at 335. Patient reportedly had an episode of shortness of breath and had garbled speech at this time. EKG and blood sugar were within normal limits. Patient also noted some slight blurry vision and vertiginous sensation. Patient has. History of 3 separate strokes. Otherwise no current symptoms. No nausea, vomiting, chest pain, shortness of breath. Patient feels he is back at his baseline. Patient did not syncopized ROS: See above HPI for pertinent positives & negatives. A total of 10 systems reviewed and were otherwise negative. PAST MEDICAL HISTORY: See Below PAST SURGICAL HISTORY: See Below FAMILY HISTORY: See Below SOCIAL HISTORY: See Below HOME MEDICATIONS: See Below ALLERGIES: See Below VITALS: See Below PHYSICAL EXAMINATION: General: resting comfortably in no acute distress Head: Normocephalic and atraumatic Eyes: Normal inspection, extraocular muscles intact Ear, nose, throat: Normal external exam Neck: Normal range of motion Respiratory: lungs clear to auscultation bilaterally Cardiovascular: Regular rate/rhythm, no murmur GI: soft, nontender, no guarding or rebound Extremities: nontender, moves all extremities Neuro: The patient awake and alert, appropriately conversive, no focal deficits, symmetric faces Skin: Warm, dry, and intact MEDICAL DECISION MAKING: This is a 74-year-old male present for word fine difficulties. Patient does have currently resolved, NIH is 0. Overall he appears well, consider TIA, syncope, ACS. -ECG independently interpreted by me with sinus bradycardia, rate of 58, normal CO, normal QRS, normal QTc, no ST segment elevations consistent with STEMI criteria, no peaked T waves or QRS widening -CT imaging is reassuring at this time. No acute process in the head, CTA head and neck are also negative -Discussed care with Dr. Dumont, stroke neurology at [facility] who recommends admission for TIA workup. Recommends continuing statin and holding Plavix until patient gets MRI -Otherwise will pursue further workup -Hemoglobin 11.6. Otherwise sodium of 130, potassium 5.9, chloride 97, creatinine 1.37., -Will admit the patient at this time for an episode of difficulty speaking. Consider TIA, syncope -Care discussed with Dr Rodriguez Differential diagnosis: TIA, stroke, syncope, ACS Independent History obtained from: Diagnostics interpreted by me: ECG see above Cardiac Monitoring: An order was placed for continuous cardiac monitoring. The monitor shows a rate of 58 with sinus] rhythm. Past Med/Surg History Problem List (Updated 10/22/24 @ 20:12 by Iván Johnson MD) Brain TIA (Acute) Word finding difficulty (Acute) Diverticulitis (Acute) Depression with suicidal ideation Cephalgia half-way (current) use of 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/antiplatelets (Acute) History of stroke (Acute) Migraine Acute dehydration (Acute) Weakness (Acute) Frequent headaches Acute alteration in mental status (Acute) Stroke-like symptom (Acute) Lethargy Stroke-like symptoms Brain TIA (Acute) Type 2 diabetes mellitus Osteoarthritis Benign localized prostatic hyperplasia with lower urinary tract symptoms (LUTS) History of stroke History of DVT (deep vein thrombosis) (Chronic) 1993- on Eliquis Diabetes mellitus, type 2 (Chronic) NIDDM BPH (benign prostatic hypertrophy) (Chronic) Dyslipidemia (Chronic) Medical History Knee pain, right MAGY (acute kidney injury) Weakness MAGY (acute kidney injury) Elevated troponin Anemia Kidney stones Stroke 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 ischemic stroke, residual mild weakness and short- term memory impairment Pulmonary embolism 1993- Eliquis Hydronephrosis with urinary obstruction due to ureteral calculus Hypertension Surgical History History of back surgery No hardware History of cystoscopy Cystoscopy, left retropyelogram, Left ureteral stent placement (03/30/21): LMA#4 at [facility] H/O colonoscopy History of tympanoplasty of right ear Status post appendectomy Family History Uncle Family history of diabetes mellitus Other Heart disease Social History Smoking Status: Never smoker Tobacco Type: Declines Second Hand Exposure: No; Do You Dip or Chew Tobacco: No; Hx Alcohol Use: No Hx Substance Use: No Preferred Language: Jordanian Communication Ability: Effective Rayon Winder Required: No Beliefs That Will Affect Care: None marital status: / Current Living Situation: Other Current Living Situation Comment: lives at home with friends current occupation: NOT WORKING How many Children do You have: 0 Feels Safe at Home: Yes Gender Identity: Transgender Male Assistive Devices: Denture - Upper, Denture - Lower and Glasses Allergies Allergies Allergy/AdvReac Type Severity Reaction Status Date / Time No Known Allergies Allergy Verified 10/22/24 16:35 Home Meds Home Medications Medication Instructions Recorded Confirmed metformin 1,000 mg tablet 500 mg PO BIDM 02/12/21 10/22/24 atorvastatin 40 mg tablet (Lipitor) 40 mg PO QAM 03/29/21 10/22/24 finasteride 5 mg tablet 5 mg PO QAM 05/08/24 10/22/24 docusate sodium 100 mg capsule 100 mg PO [id number] 05/15/24 10/22/24 (Stool Softener) acetaminophen 500 mg tablet 500 mg PO TID PRN Pain 10/22/24 10/22/24 (Tylenol Extra Strength) aspirin 81 mg tablet,delayed 81 mg PO DAILY 10/22/24 10/22/24 release gabapentin 300 mg capsule 300 mg PO BID 10/22/24 10/22/24 Previous Rx's Medication Instructions Recorded apixaban 5 mg tablet (Eliquis) 5 mg PO BID 30 days #60 tabs 02/02/21 propranolol 10 mg tablet 5 mg (1/2 x 10 mg) PO BID #15 tabs 05/19/24 sertraline 50 mg tablet 50 mg PO QAM 30 days #30 tabs 05/30/24 Results & Data (ED) Vital Signs Vital Signs - 24 hr 10/22/24 16:12 10/22/24 16:42 10/22/24 17:00 Temperature 36.6 C Temperature Source Temporal Artery Scan Pulse Rate 87 60 Pulse Rate [Apical] Respiratory Rate 18 Respiratory Effort / Characteristics Non-Labored Spontaneous Respiratory Depth Normal Respiratory Pattern Regular Blood Pressure 147/88 H 159/89 H Blood Pressure [Right Arm] Blood Pressure Mean 107 118 Blood Pressure Mean [Right Arm] Blood Pressure Position Sitting Pulse Oximetry 98 Oxygen Delivery Method Room Air Sepsis Recent Fever Within 48 Hours No Sepsis New/Unexplained Change in Mental Status N/A Sepsis Action Taken by Nursing No Action Required 10/22/24 17:56 10/22/24 18:30 10/22/24 18:30 Temperature Temperature Source Pulse Rate Pulse Rate [Apical] 58 L Respiratory Rate 14 Respiratory Effort / Characteristics Respiratory Depth Respiratory Pattern Blood Pressure 161/98 H 161/98 H Blood Pressure [Right Arm] 157/81 H Blood Pressure Mean 132 132 Blood Pressure Mean [Right Arm] 106 Blood Pressure Position Pulse Oximetry 96 Oxygen Delivery Method Room Air Sepsis Recent Fever Within 48 Hours Sepsis New/Unexplained Change in Mental Status Sepsis Action Taken by Nursing 10/22/24 18:30 10/22/24 18:30 10/22/24 19:00 Temperature Temperature Source Pulse Rate Pulse Rate [Apical] Respiratory Rate Respiratory Effort / Characteristics Respiratory Depth Respiratory Pattern Blood Pressure 161/98 H 161/98 H 160/108 H Blood Pressure [Right Arm] Blood Pressure Mean 132 132 136 Blood Pressure Mean [Right Arm] Blood Pressure Position Pulse Oximetry Oxygen Delivery Method Sepsis Recent Fever Within 48 Hours Sepsis New/Unexplained Change in Mental Status Sepsis Action Taken by Nursing 10/22/24 19:00 Temperature Temperature Source Pulse Rate Pulse Rate [Apical] Respiratory Rate Respiratory Effort / Characteristics Respiratory Depth Respiratory Pattern Blood Pressure 160/108 H Blood Pressure [Right Arm] Blood Pressure Mean 136 Blood Pressure Mean [Right Arm] Blood Pressure Position Pulse Oximetry Oxygen Delivery Method Sepsis Recent Fever Within 48 Hours Sepsis New/Unexplained Change in Mental Status Sepsis Action Taken by Nursing Laboratory Data 10/22/24 16:42 10/22/24 18:24 Lab Results 10/22/24 10/22/24 Range/Units 16:42 18:24 WBC 8.54 (4.8-10.8) K/ul RBC 3.88 L (4.70-6.10) M/uL Hgb 11.6 L (14.0-18.0) g/dl Hct 33.8 L (42.0-52.0) % MCV 87.1 (80.0-100.0) fL MCH 29.9 (25.0-34.0) pg MCHC 34.3 (32.0-36.0) g/dL RDW Std Deviation 47.0 H (36.4-46.3) fL RDW Coeff of Aranza 14.9 H (11.5-14.5) % Plt Count 220 (130-400) K/uL MPV 10.2 (9.4-12.4) fL Immature Gran % (Auto) 1.9 % Neut % (Auto) 72.5 % Lymph % (Auto) 16.6 % [place] % (Auto) 6.9 % Eos % (Auto) 1.4 % Baso % (Auto) 0.7 % Neut # (Auto) 6.19 (1.40-6.50) K/uL Lymph # (Auto) 1.42 (1.20-3.40) K/uL [place] # (Auto) 0.59 (0.11-0.59) K/uL Eos # (Auto) 0.12 (0.00-0.50) K/uL Baso # (Auto) 0.06 (0.00-0.20) K/uL Immature Gran # (Auto) 0.16 (0.01-0.20) K/uL PT 11.7 (9.0-12.0) Seconds INR 1.1 (0.9-1.1) APTT 32 H (21-31) Seconds PTT Ratio 1.2 Sodium 130 L (136-145) mmol/L Potassium TNP 5.9 H Chloride 97 L (98-107) mmol/L Carbon Dioxide 28 (21-32) mmol/L Anion Gap 5 (3-11) BUN 24 H (6-23) mg/dl Creatinine 1.37 (0.6-1.4) mg/dl Est Cr Clr Drug Dosing 46.8 ml/min eGFR 53.46 BUN/Creatinine Ratio 17.5 (10-20) Glucose 179 H (70-99(Fasting)) mg/dl Calcium 8.9 (8.6-10.3) mg/dl Magnesium 1.9 (1.7-2.4) mg/dl Total Bilirubin 0.8 (0.2-1.0) mg/dl AST TNP 45 H ALT 37 (7-52) U/L Alkaline Phosphatase 64 (34-104) U/L Troponin I High Sens 4.8 (0-20) pg/ml Total Protein 6.1 (6.0-8.3) gm/dl Albumin 3.8 (3.4-5.0) gm/dl Globulin 2.3 L (2.5-4.0) gm/dl Albumin/Globulin Ratio 1.7 (0.9-2) Administered Medications Discontinued Medications Ioversol (Optiray 320 125ml) 118 ml IV ONCE ONE Stop: 10/22/24 16:26 Last Admin: 10/22/24 16:26 Dose: 118 ml Documented By: RENANW Imaging Data Radiologist's Impression: Head CT 10/22/24 16:19 EXAM: CT Angiography Head and Neck With Intravenous Contrast INDICATION: Dizziness. Dysarthria. TECHNIQUE: [place] [facility] [place]/head and neck CT angiography protocol performed with intravenous contrast. Sagittal and coronal reformatted images were created and reviewed. This CT exam was performed using one or more of the following dose reduction techniques: automated exposure control, adjustment of the mA and/or kV according to patient size, and/or use of iterative reconstruction technique. MIP reconstructed images were created and reviewed. CONTRAST: 118ml of Optiray 320 was administered intravenously. COMPARISON: 05/15/2024 FINDINGS: HEAD: Right anterior cerebral artery: No abnormality noted. No occlusion or significant stenosis. Anterior communicating artery is present. No aneurysm. Right middle cerebral artery: No abnormality noted. No occlusion or significant stenosis. No aneurysm. Right posterior cerebral artery: No abnormality noted. No occlusion or significant stenosis. No aneurysm. Right intracranial internal carotid artery: Minimal calcific plaque. No significant stenosis. No dissection or occlusion. Right intracranial vertebral artery: No abnormality noted. No significant stenosis. No dissection or occlusion. Left anterior cerebral artery: No abnormality noted. No occlusion or significant stenosis. No aneurysm. Left middle cerebral artery: No abnormality noted. No occlusion or significant stenosis. No aneurysm. Left posterior cerebral artery: No abnormality noted. No occlusion or significant stenosis. No aneurysm. Left intracranial internal carotid artery: Minimal calcific plaque. No significant stenosis. No dissection or occlusion. Left intracranial vertebral artery: No abnormality noted. No significant stenosis. No dissection or occlusion. Basilar artery: No abnormality noted. No occlusion or significant stenosis. No aneurysm. Other vasculature: Patent dural venous sinuses. No vascular malformation. Mastoid air cells: Stable chronic mastoid air cell thickening. No occlusion. NECK: Right common carotid artery: No abnormality noted. No significant stenosis. No dissection or occlusion. Right extracranial internal carotid artery: No abnormality noted. No significant stenosis. No dissection or occlusion. Right external carotid artery: No abnormality noted. No occlusion. Right extracranial vertebral artery: No abnormality noted. No significant stenosis. No dissection or occlusion. Left common carotid artery: No abnormality noted. No significant stenosis. No dissection or occlusion. Left extracranial internal carotid artery: Minimal calcific plaque noted.. No significant stenosis. No dissection or occlusion. Left external carotid artery: No abnormality noted. No occlusion. Left extracranial vertebral artery: No abnormality noted. No significant stenosis. No dissection or occlusion. Lung apices: No significant abnormality noted. HEAD and NECK: Bones/joints: No significant abnormality. Soft tissues: No abnormality noted. CAROTID STENOSIS REFERENCE USING NASCET CRITERIA: % ICA stenosis = (1 - narrowest ICA diameter/diameter of distal cervical ICA) x 100. Mild - <50% stenosis. Moderate - 50-69% stenosis. Severe - 70-94% stenosis. Near occlusion - 95-99% stenosis. Occluded - 100% stenosis. IMPRESSION: No large vessel occlusion, aneurysm, dissection or significant arterial stenosis in the head or neck. Findings discussed by phone with Dr. Johnson at 4:50 PM 10/22/2024 ACT 112: N/A Electronically signed by Sangita Osman 10-22-2024 4:55 PM Head CTA 10/22/24 16:19 EXAM: CT Angiography Head and Neck With Intravenous Contrast INDICATION: Dizziness. Dysarthria. TECHNIQUE: [place]/head and neck CT angiography protocol performed with intravenous contrast. Sagittal and coronal reformatted images were created and reviewed. This CT exam was performed using one or more of the following dose reduction techniques: automated exposure control, adjustment of the mA and/or kV according to patient size, and/or use of iterative reconstruction technique. MIP reconstructed images were created and reviewed. CONTRAST: 118ml of Optiray 320 was administered intravenously. COMPARISON: 05/15/2024 FINDINGS: HEAD: Right anterior cerebral artery: No abnormality noted. No occlusion or significant stenosis. Anterior communicating artery is present. No aneurysm. Right middle cerebral artery: No abnormality noted. No occlusion or significant stenosis. No aneurysm. Right posterior cerebral artery: No abnormality noted. No occlusion or significant stenosis. No aneurysm. Right intracranial internal carotid artery: Minimal calcific plaque. No significant stenosis. No dissection or occlusion. Right intracranial vertebral artery: No abnormality noted. No significant stenosis. No dissection or occlusion. Left anterior cerebral artery: No abnormality noted. No occlusion or significant stenosis. No aneurysm. Left middle cerebral artery: No abnormality noted. No occlusion or significant stenosis. No aneurysm. Left posterior cerebral artery: No abnormality noted. No occlusion or significant stenosis. No aneurysm. Left intracranial internal carotid artery: Minimal calcific plaque. No significant stenosis. No dissection or occlusion. Left intracranial vertebral artery: No abnormality noted. No significant stenosis. No dissection or occlusion. Basilar artery: No abnormality noted. No occlusion or significant stenosis. No aneurysm. Other vasculature: Patent dural venous sinuses. No vascular malformation. Mastoid air cells: Stable chronic mastoid air cell thickening. No occlusion. NECK: Right common carotid artery: No abnormality noted. No significant stenosis. No dissection or occlusion. Right extracranial internal carotid artery: No abnormality noted. No significant stenosis. No dissection or occlusion. Right external carotid artery: No abnormality noted. No occlusion. Right extracranial vertebral artery: No abnormality noted. No significant stenosis. No dissection or occlusion. Left common carotid artery: No abnormality noted. No significant stenosis. No dissection or occlusion. Left extracranial internal carotid artery: Minimal calcific plaque noted.. No significant stenosis. No dissection or occlusion. Left external carotid artery: No abnormality noted. No occlusion. Left extracranial vertebral artery: No abnormality noted. No significant stenosis. No dissection or occlusion. Lung apices: No significant abnormality noted. HEAD and NECK: Bones/joints: No significant abnormality. Soft tissues: No abnormality noted. CAROTID STENOSIS REFERENCE USING NASCET CRITERIA: % ICA stenosis = (1 - narrowest ICA diameter/diameter of distal cervical ICA) x 100. Mild - <50% stenosis. Moderate - 50-69% stenosis. Severe - 70-94% stenosis. Near occlusion - 95-99% stenosis. Tell Occluded - 100% stenosis. IMPRESSION: No large vessel occlusion, aneurysm, dissection or significant arterial stenosis in the head or neck. Findings discussed by phone with Dr. Jhonson at 4:50 PM 10/22/2024 ACT 112: N/A Electronically signed by Sangita Osman 10-22-2024 4:55 PM Neck CTA 10/22/24 16:19 EXAM: CT Head Without Intravenous Contrast INDICATION: Garbled speech and shortness of breath. Dizziness. TECHNIQUE: Axial computed tomography images of the head/brain without intravenous contrast. Sagittal and/or coronal reformats are provided. Sagittal and coronal reformatted images were created and reviewed. This CT exam was performed using one or more of the following dose reduction techniques: automated exposure control, adjustment of the mA and/or kV according to patient size, and/or use of iterative reconstruction technique. COMPARISON: 07/09/2024 FINDINGS: Limitations: None. 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 No acute infarct. No extra-axial fluid collection or hemorrhage. No significant white matter disease. Bones/joints: No acute changes. Soft tissues: No significant abnormality noted. Vasculature: No acute abnormality noted. Sinuses: No layering fluid in the visualized portions of the paranasal sinuses. Mastoid air cells: Stable chronic bilateral mastoid air cell sclerosis without effusion. Orbits: No significant abnormality noted. IMPRESSION: Stable chronic changes. No acute disease. Findings discussed by phone with Dr. Johnson at 4:50 PM 10/22/2024 ACT 112: N/A Electronically signed by Sangita Osman 10-22-2024 4:55 PM Discharge Plan Visit Data Chief Complaint: Stroke/CVA Symptoms Stated Complaint: REF BY DOC FOR CT ED Provider: Iván Johnson Discharge Problem: Word finding difficulty, Brain TIA Forms Stand Alone Forms: My [facility] eSoft Prescriptions Prescriptions: No Action Eliquis 5 mg Tablet 5 mg PO BID 30 Days Qty: 60 3RF metformin 1,000 mg tablet 500 mg PO BIDM atorvastatin [Lipitor] 40 mg tablet 40 mg PO QAM aspirin 81 mg Tablet,Delayed Release (Dr/Ec) 81 mg PO DAILY acetaminophen [Tylenol Extra Strength] 500 mg Tablet 500 mg PO TID PRN (Reason: Pain) gabapentin 300 mg Capsule 300 mg PO BID Rx Instructions: ORDERED 10/22/24, NOT STARTED YET finasteride 5 mg tablet 5 mg PO QAM docusate sodium [Stool Softener] 100 mg Capsule 100 mg PO [id number] Rx Instructions: SUN, TUES, THUR, & SAT. @ HS propranolol 10 mg Tablet 5 mg PO BID Qty: 15 0RF Rx Instructions: PER [facility]--10 MG TAB--TAKE 5 MG BID. PER PT'S MED LIST---2.5 MG BID. sertraline 50 mg Tablet 50 mg PO QAM 30 Days Qty: 30 0RF Referrals Referrals: Keo Patrick DO [Primary Care Provider] -
[2024-10-22 17:55] LABS: Alanine Aminotransferase 37 U/L (7-52); Albumin Globulin Ratio 1.7 (0.9-2); Albumin Level 3.8 gm/dl (3.4-5.0); Alkaline Phosphatase 64 U/L (34-104); Anion Gap 5 (3-11); BUN Creatinine Ratio 17.5 (10-20); Bilirubin,Total 0.8 mg/dl (0.2-1.0); Blood Urea Nitrogen 24 mg/dl (6-23); Calcium 8.9 mg/dl (8.6-10.3); Carbon Dioxide 28 mmol/L (21-32); Chloride 97 mmol/L (98-107); Creatinine Clr Calc Pharmacy 46.8 ml/min; Globulin 2.3 gm/dl (2.5-4.0); Glucose 179 mg/dl (70-99(Fasting)); Magnesium 1.9 mg/dl (1.7-2.4); Sodium 130 mmol/L (136-145); Total Protein 6.1 gm/dl (6.0-8.3); Troponin I High Sensitivity 4.8 pg/ml (0-20)
[2024-10-22 19:00] LABS: Potassium 5.9 mmol/L (3.5-5.1)
--- NOTE | 2024-10-22 20:55 | History & Physical Report ---
Date of Service October 22, 2024 Assessment & Plan (1) Stroke-like symptom: Plan: 74-year-old male with past medical history significant for type 2 diabetes, hyperlipidemia, recurrent DVT, hypertension, BPH, history of kidney stone, CKD stage III, lumbar degenerative disease, chronic migraine, history of thrombocytopenia, depression, history of right frontal CVA in 2016, left parietal lobe CVA in 05/2021, right frontoparietal CVA in 04/2024 and admissions for toxic and metabolic encephalopathy in 04/2024 and gabapentin dose was reduced and duloxetine was stopped and patient was started on Zoloft and also patient was admitted that time for suicidal ideation to behavioral health unit comes today because of strokelike symptoms. Patient was started on Augmentin on 10/09/2024 for acute diverticulitis. Patient says he still has some abdominal pain and has diarrhea and had 1 episode diarrhea today. Patient went to PCP office today for follow-up. At PCPs office patient was having worsening aphasia mid conversation and felt dizzy. And was unable to follow directions for few minutes. He is blood sugars were okay and EKG showed sinus bradycardia with no acute ST changes. And patient was sent to the hospital. He was stroke alert. In the ER he was back to baseline. CT head, CTA head and neck are unremarkable. Currently resting comfortably. Hemodynamics are okay. Denies any headache. Patient says had blurred vision earlier but improved now. No headache. No runny nose. No sore throat. No cough. No difficulty swallowing. Denies chest pain. Says he gets on and off short of breath. No nausea, no abdominal pain. Had 1 episode of diarrhea today. No blood in the stools. Patient says difficult to initiate micturating but once starts micturating he does okay. No swelling in the legs. Afebrile. Lives with a friend. Says ambulates without support. But today was feeling little bit off balance. Strokelike symptoms Brief episode of difficulty speaking History of multiple CVAs in the past and last was in 04/[address] head, CTA head and neck unremarkable Currently patient is back to baseline [place] [facility] recommended MRI brain Will do full stroke workup with MRI brain, echo Neurochecks every 2 hours PT OT Continue home aspirin and Eliquis and statin Previous admissions aspirin was stopped because of thrombocytopenia but was restarted as outpatient as platelets improved Neuroconsult in a.m. for further recommendations Hypertension Currently on propranolol Will hold for permissive hypertension IV labetalol as needed Last admission losartan was started but was stopped as outpatient along with Flomax as he was having orthostatic hypotension Will monitor Hyperkalemia and hyponatremia K5.9 and sodium 130 Will give a dose of Lokelma and calcium gluconate Gentle fluids Low potassium diet Follow repeat labs in a.m. Consult nephrology in a.m. for further recommendations Obstructive sleep apnea Started on CPAP about a month ago as per patient Diabetes Hold metformin Insulin sliding scale Will monitor Follow HbA1c levels BPH Continue Proscar History of recurrent DVT On Eliquis Hyperlipidemia On statin CKD stage III Presented creatinine 1.3 Will follow the labs Recent diverticulitis Was treated with Augmentin for 10 days starting 10/09/2024 Still some abdominal discomfort If patient continues to have pain we will get a repeat CT scan Depression On Zoloft Chronic anemia Hemoglobin 11.6 around baseline we will follow labs. Migraines Monitor Will restart propranolol DVT prophylaxis On Eliquis Disposition Telemetry Full code History of Present Illness Chief Complaint: Strokelike symptoms Primary Care Provider: Keo Patrick DO 74-year-old male with past medical history significant for type 2 diabetes, hyperlipidemia, recurrent DVT, hypertension, BPH, history of kidney stone, CKD stage III, lumbar degenerative disease, chronic migraine, history of thrombocytopenia, depression, history of right frontal CVA in 2016, left parietal lobe CVA in 05/2021, right frontoparietal CVA in 04/2024 and admissions for toxic and metabolic encephalopathy in 04/2024 and gabapentin dose was reduced and duloxetine was stopped and patient was started on Zoloft and also patient was admitted that time for suicidal ideation to behavioral health unit comes today because of strokelike symptoms. Patient was started on Augmentin on 10/09/2024 for acute diverticulitis. Patient says he still has some abdominal pain and has diarrhea and had 1 episode diarrhea today. Patient went to PCP office today for follow-up. At PCPs office patient was having worsening aphasia mid conversation and felt dizzy. And was unable to follow directions for few minutes. He is blood sugars were okay and EKG showed sinus bradycardia with no acute ST changes. And patient was sent to the hospital. He was stroke alert. In the ER he was back to baseline. CT head, CTA head and neck are unremarkable. Currently resting comfortably. Hemodynamics are okay. Denies any headache. Patient says had blurred vision earlier but improved now. No hea dache. No runny nose. No sore throat. No cough. No difficulty swallowing. Denies chest pain. Says he gets on and off short of breath. No nausea, no abdominal pain. Had 1 episode of diarrhea today. No blood in the stools. Patient says difficult to initiate micturating but once starts micturating he does okay. No swelling in the legs. Afebrile. Lives with a friend. Says ambulates without support. But today was feeling little bit off balance. Past medical history. As mentioned above Past surgical history. Colonoscopy. Colonoscopy with biopsy. Extraoral incision and drainage floor of the mouth. Right ear tympanoplasty. Right septic knee I&D. Appendectomy. Surgical removal of erupted tooth. Ultrasound transrectal biopsy Social history. Former user of smokeless tobacco. No alcohol use. No drug use. Family history. Father had heart attack. Mother in childbirth. Allergies Allergy/AdvReac Type Severity Reaction Status Date / Time No Known Allergies Allergy Verified 10/22/24 16:35 Home Medications Medication Instructions Recorded Confirmed Type apixaban 5 mg tablet (Eliquis) 5 mg PO BID 30 days #60 tabs 02/02/21 10/22/24 Rx metformin 1,000 mg tablet 500 mg PO BIDM 02/12/21 10/22/24 History atorvastatin 40 mg tablet (Lipitor) 40 mg PO QAM 03/29/21 10/22/24 History finasteride 5 mg tablet 5 mg PO QAM 05/08/24 10/22/24 History docusate sodium 100 mg capsule 100 mg PO 4XWK 05/15/24 10/22/24 History (Stool Softener) propranolol 10 mg tablet 5 mg (1/2 x 10 mg) PO BID #15 tabs 05/19/24 10/22/24 Rx sertraline 50 mg tablet 50 mg PO QAM 30 days #30 tabs 05/30/24 10/22/24 Rx acetaminophen 500 mg tablet 500 mg PO TID PRN Pain 10/22/24 10/22/24 History (Tylenol Extra Strength) aspirin 81 mg tablet,delayed 81 mg PO DAILY 10/22/24 10/22/24 History release gabapentin 300 mg capsule 300 mg PO BID 10/22/24 10/22/24 History Past Med/Surg History Problem List (Updated 10/22/24 @ 21:07 by Andrew Rodriguez MD) Stroke-like symptom Brain TIA (Acute) Word finding difficulty (Acute) Diverticulitis (Acute) Depression with suicidal ideation Cephalgia intermediate (current) use of 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/antiplatelets (Acute) History of stroke (Acute) Migraine Acute dehydration (Acute) Weakness (Acute) Frequent headaches Acute alteration in mental status (Acute) Stroke-like symptom (Acute) Lethargy Stroke-like symptoms Brain TIA (Acute) Type 2 diabetes mellitus Osteoarthritis Benign localized prostatic hyperplasia with lower urinary tract symptoms (LUTS) History of stroke History of DVT (deep vein thrombosis) (Chronic) 1993- Eliquis Diabetes mellitus, type 2 (Chronic) NIDDM BPH (benign prostatic hypertrophy) (Chronic) Dyslipidemia (Chronic) Medical History Knee pain, right MAGY (acute kidney injury) Weakness MAGY (acute kidney injury) Elevated troponin Anemia Kidney stones Stroke 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 ischemic stroke, residual mild weakness and short- term memory impairment Pulmonary embolism 1993- Hydronephrosis with urinary obstruction due to ureteral calculus Hypertension Surgical History History of back surgery No hardware History of cystoscopy Cystoscopy, left retropyelogram, Left ureteral stent placement (03/30/21): LMA#4 at [facility] H/O colonoscopy History of tympanoplasty of right ear Status post appendectomy Family History Uncle Family history of diabetes mellitus Other Heart disease Social History Smoking Status: Former smoker Tobacco Type: Declines Second Hand Exposure: No; Do You Dip or Chew Tobacco: No; Hx Alcohol Use: No Hx Substance Use: No Preferred Language: Swedish Communication Ability: Effective Nuclear Scientist Required: No Beliefs That Will Affect Care: None marital status: / Current Living Situation: Other Current Living Situation Comment: lives with Friend, Montse current occupation: NOT WORKING How many Children do You have: 0 Other Information That Helps Us Care for You: No Feels Safe at Home: Yes Safety Concerns: Feels Safe At This Time Gender Identity: Transgender Male Assistive Devices: CPAP Review of Systems Review of Systems: All systems reviewed & are unremarkable except as noted in HPI & below Physical Exam Physical Exam: General- Not in distress Head- atraumatic Eyes- PERRL. ENT- oropharynx clear Neck- supple, no JVD. Lungs- clear to auscultation no wheezing or crackles Heart- regular rate and rhythm; no murmur, no gallop. Abdomen- normal bowel sounds, soft, mild discomfort in lower abdomen, no distension. Extremities- no pretibial edema, no erythema seen Neuro- alert, oriented x 3; PERRL, no facial palsy; no dysarthria; motor 5/5 bilaterally; no pronator drift, co ordination of movements normal, sensations intact Skin- warm & dry Results & Data Results & Data Vital Signs (Past 12 Hours) Vital Signs Temp Pulse Pulse Resp BP BP Pulse Ox 10/22/24 19:00 160/108 H 10/22/24 19:00 160/108 H 10/22/24 18:30 161/98 H 10/22/24 18:30 161/98 H 10/22/24 18:30 161/98 H 10/22/24 18:30 161/98 H 10/22/24 17:56 58 L 14 157/81 H 96 10/22/24 17:00 159/89 H 10/22/24 16:42 60 10/22/24 16:12 36.6 C 87 18 147/88 H 98 O2 Del Method 10/22/24 19:00 10/22/24 19:00 10/22/24 18:30 10/22/24 18:30 10/22/24 18:30 10/22/24 18:30 10/22/24 17:56 Room Air 10/22/24 17:00 10/22/24 16:42 10/22/24 16:12 Room Air Diagnostic Findings Laboratory Results WBC 8.54 K/ul (4.8-10.8) 10/22/24 16:42 RBC 3.88 M/uL (4.70-6.10) L 10/22/24 16:42 Hgb 11.6 g/dl (14.0-18.0) L 10/22/24 16:42 Hct 33.8 % (42.0-52.0) L 10/22/24 16:42 MCV 87.1 fL (80.0-100.0) 10/22/24 16:42 MCH 29.9 pg (25.0-34.0) 10/22/24 16:42 MCHC 34.3 g/dL (32.0-36.0) 10/22/24 16:42 RDW Std Deviation 47.0 fL (36.4-46.3) H 10/22/24 16:42 RDW Coeff of Aranza 14.9 % (11.5-14.5) H 10/22/24 16:42 Plt Count 220 K/uL (130-400) 10/22/24 16:42 MPV 10.2 fL (9.4-12.4) 10/22/24 16:42 Immature Gran % (Auto) 1.9 % 10/22/24 16:42 Neut % (Auto) 72.5 % 10/22/24 16:42 Lymph % (Auto) 16.6 % 10/22/24 16:42 Summers % (Auto) 6.9 % 10/22/24 16:42 Eos % (Auto) 1.4 % 10/22/24 16:42 Baso % (Auto) 0.7 % 10/22/24 16:42 Neut # (Auto) 6.19 K/uL (1.40-6.50) 10/22/24 16:42 Lymph # (Auto) 1.42 K/uL (1.20-3.40) 10/22/24 16:42 Summers # (Auto) 0.59 K/uL (0.11-0.59) 10/22/24 16:42 Eos # (Auto) 0.12 K/uL (0.00-0.50) 10/22/24 16:42 Baso # (Auto) 0.06 K/uL (0.00-0.20) 10/22/24 16:42 Immature Gran # (Auto) 0.16 K/uL (0.01-0.20) 10/22/24 16:42 PT 11.7 Seconds (9.0-12.0) 10/22/24 16:42 INR 1.1 (0.9-1.1) 10/22/24 16:42 APTT 32 Seconds (21-31) H 10/22/24 16:42 PTT Ratio 1.2 10/22/24 16:42 Sodium 130 mmol/L (136-145) L 10/22/24 16:42 Potassium 5.9 mmol/L (3.5-5.1) H 10/22/24 18:24 Chloride 97 mmol/L (98-107) L 10/22/24 16:42 Carbon Dioxide 28 mmol/L (21-32) 10/22/24 16:42 Anion Gap 5 (3-11) 10/22/24 16:42 BUN 24 mg/dl (6-23) H 10/22/24 16:42 Creatinine 1.37 mg/dl (0.6-1.4) 10/22/24 16:42 Est Cr Clr Drug Dosing 46.8 ml/min 10/22/24 16:42 eGFR 53.46 10/22/24 16:42 BUN/Creatinine Ratio 17.5 (10-20) 10/22/24 16:42 Glucose 179 mg/dl (70-99(Fasting)) H 10/22/24 16:42 Calcium 8.9 mg/dl (8.6-10.3) 10/22/24 16:42 Magnesium 1.9 mg/dl (1.7-2.4) 10/22/24 16:42 Total Bilirubin 0.8 mg/dl (0.2-1.0) 10/22/24 16:42 AST 45 U/L (13-39) H 10/22/24 18:24 ALT 37 U/L (7-52) 10/22/24 16:42 Alkaline Phosphatase 64 U/L (34-104) 10/22/24 16:42 Troponin I High Sens 4.8 pg/ml (0-20) 10/22/24 16:42 Total Protein 6.1 gm/dl (6.0-8.3) 10/22/24 16:42 Albumin 3.8 gm/dl (3.4-5.0) 10/22/24 16:42 Globulin 2.3 gm/dl (2.5-4.0) L 10/22/24 16:42 Albumin/Globulin Ratio 1.7 (0.9-2) 10/22/24 16:[address] 10/22/24 16:19 EXAM: CT Angiography Head and Neck With Intravenous Contrast INDICATION: Dizziness. Dysarthria. TECHNIQUE: [place] [facility] [place]/head and neck CT angiography protocol performed with intravenous contrast. Sagittal and coronal reformatted images were created and reviewed. This CT exam was performed using one or more of the following dose reduction techniques: automated exposure control, adjustment of the mA and/or kV according to patient size, and/or use of iterative reconstruction technique. MIP reconstructed images were created and reviewed. CONTRAST: 118ml of Optiray 320 was administered intravenously. COMPARISON: 05/15/2024 FINDINGS: HEAD: Right anterior cerebral artery: No abnormality noted. No occlusion or significant stenosis. Anterior communicating artery is present. No aneurysm. Right middle cerebral artery: No abnormality noted. No occlusion or significant stenosis. No aneurysm. Right posterior cerebral artery: No abnormality noted. No occlusion or significant stenosis. No aneurysm. Right intracranial internal carotid artery: Minimal calcific plaque. No significant stenosis. No dissection or occlusion. Right intracranial vertebral artery: No abnormality noted. No significant stenosis. No dissection or occlusion. Left anterior cerebral artery: No abnormality noted. No occlusion or significant stenosis. No aneurysm. Left middle cerebral artery: No abnormality noted. No occlusion or significant stenosis. No aneurysm. Left posterior cerebral artery: No abnormality noted. No occlusion or significant stenosis. No aneurysm. Left intracranial internal carotid artery: Minimal calcific plaque. No significant stenosis. No dissection or occlusion. Left intracranial vertebral artery: No abnormality noted. No significant stenosis. No dissection or occlusion. Basilar artery: No abnormality noted. No occlusion or significant stenosis. No aneurysm. Other vasculature: Patent dural venous sinuses. No vascular malformation. Mastoid air cells: Stable chronic mastoid air cell thickening. No occlusion. NECK: Right common carotid artery: No abnormality noted. No significant stenosis. No dissection or occlusion. Right extracranial internal carotid artery: No abnormality noted. No significant stenosis. No dissection or occlusion. Right external carotid artery: No abnormality noted. No occlusion. Right extracranial vertebral artery: No abnormality noted. No significant stenosis. No dissection or occlusion. Left common carotid artery: No abnormality noted. No significant stenosis. No dissection or occlusion. Left extracranial internal carotid artery: Minimal calcific plaque noted.. No significant stenosis. No dissection or occlusion. Left external carotid artery: No abnormality noted. No occlusion. Left extracranial vertebral artery: No abnormality noted. No significant stenosis. No dissection or occlusion. Lung apices: No significant abnormality noted. HEAD and NECK: Bones/joints: No significant abnormality. Soft tissues: No abnormality noted. CAROTID STENOSIS REFERENCE USING NASCET CRITERIA: % ICA stenosis = (1 - narrowest ICA diameter/diameter of distal cervical ICA) x 100. Mild - <50% stenosis. Moderate - 50-69% stenosis. Severe - 70-94% stenosis. Near occlusion - 95-99% stenosis. Occluded - 100% stenosis. IMPRESSION: No large vessel occlusion, aneurysm, dissection or significant arterial stenosis in the head or neck. Findings discussed by phone with Dr. Johnson at 4:50 PM 10/22/2024 ACT 112: N/A Electronically signed by Sangita Osman 10-22-2024 4:55 PM Head CTA 10/22/24 16:19 EXAM: CT Angiography Head and Neck With Intravenous Contrast INDICATION: Dizziness. Dysarthria. TECHNIQUE: [place] [facility] [place]/head and neck CT angiography protocol performed with intravenous contrast. Sagittal and coronal reformatted images were created and reviewed. This CT exam was performed using one or more of the following dose reduction techniques: automated exposure control, adjustment of the mA and/or kV according to patient size, and/or use of iterative reconstruction technique. MIP reconstructed images were created and reviewed. CONTRAST: 118ml of Optiray 320 was administered intravenously. COMPARISON: 05/15/2024 FINDINGS: HEAD: Right anterior cerebral artery: No abnormality noted. No occlusion or significant stenosis. Anterior communicating artery is present. No aneurysm. Right middle cerebral artery: No abnormality noted. No occlusion or significant stenosis. No aneurysm. Right posterior cerebral artery: No abnormality noted. No occlusion or significant stenosis. No aneurysm. Right intracranial internal carotid artery: Minimal calcific plaque. No significant stenosis. No dissection or occlusion. Right intracranial vertebral artery: No abnormality noted. No significant stenosis. No dissection or occlusion. Left anterior cerebral artery: No abnormality noted. No occlusion or significant stenosis. No aneurysm. Left middle cerebral artery: No abnormality noted. No occlusion or significant stenosis. No aneurysm. Left posterior cerebral artery: No abnormality noted. No occlusion or significant stenosis. No aneurysm. Left intracranial internal carotid artery: Minimal calcific plaque. No significant stenosis. No dissection or occlusion. Left intracranial vertebral artery: No abnormality noted. No significant stenosis. No dissection or occlusion. Basilar artery: No abnormality noted. No occlusion or significant stenosis. No aneurysm. Other vasculature: Patent dural venous sinuses. No vascular malformation. Mastoid air cells: Stable chronic mastoid air cell thickening. No occlusion. NECK: Right common carotid artery: No abnormality noted. No significant stenosis. No dissection or occlusion. Right extracranial internal carotid artery: No abnormality noted. No significant stenosis. No dissection or occlusion. Right external carotid artery: No abnormality noted. No occlusion. Right extracranial vertebral artery: No abnormality noted. No significant stenosis. No dissection or occlusion. Left common carotid artery: No abnormality noted. No significant stenosis. No dissection or occlusion. Left extracranial internal carotid artery: Minimal calcific plaque noted.. No significant stenosis. No dissection or occlusion. Left external carotid artery: No abnormality noted. No occlusion. Left extracranial vertebral artery: No abnormality noted. No significant stenosis. No dissection or occlusion. Lung apices: No significant abnormality noted. HEAD and NECK: Bones/joints: No significant abnormality. Soft tissues: No abnormality noted. CAROTID STENOSIS REFERENCE USING NASCET CRITERIA: % ICA stenosis = (1 - narrowest ICA diameter/diameter of distal cervical ICA) x 100. Mild - <50% stenosis. Moderate - 50-69% stenosis. Severe - 70-94% stenosis. Near occlusion - 95-99% stenosis. Tell Occluded - 100% stenosis. IMPRESSION: No large vessel occlusion, aneurysm, dissection or significant arterial stenosis in the head or neck. Findings discussed by phone with Dr. Johnson at 4:50 PM 10/22/2024 ACT 112: N/A Electronically signed by Sangita Osman 10-22-2024 4:55 PM Neck CTA 10/22/24 16:19 EXAM: CT Head Without Intravenous Contrast INDICATION: Garbled speech and shortness of breath. Dizziness. TECHNIQUE: Axial computed tomography images of the head/brain without intravenous contrast. Sagittal and/or coronal reformats are provided. Sagittal and coronal reformatted images were created and reviewed. This CT exam was performed using one or more of the following dose reduction techniques: automated exposure control, adjustment of the mA and/or kV according to patient size, and/or use of iterative reconstruction technique. COMPARISON: 07/09/2024 FINDINGS: Limitations: None. 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 No acute infarct. No extra-axial fluid collection or hemorrhage. No significant white matter disease. Bones/joints: No acute changes. Soft tissues: No significant abnormality noted. Vasculature: No acute abnormality noted. Sinuses: No layering fluid in the visualized portions of the paranasal sinuses. Mastoid air cells: Stable chronic bilateral mastoid air cell sclerosis without effusion. Orbits: No significant abnormality noted. IMPRESSION: Stable chronic changes. No acute disease. Findings discussed by phone with Dr. Johnson at 4:50 PM 10/22/2024 ACT 112: N/A Electronically signed by Sangita Osman 10-22-2024 4:55 PM ECG Additional Comments: ECG. Sinus bradycardia rate of 58. No significant change was found. Code Status & VTE Plan VTE Prophylaxis Plan VTE Prophylaxis will be ordered: Yes
[2024-10-22] MEDS: SODIUM ZIRCONIUM CYCLOSILICATE 10 GM PACKET PO STA (20:58)
[2024-10-22] MEDS: CALCIUM GLUCONATE 1,000 MG/60 ML BAG IV STA (21:00)
[2024-10-22] MEDS ORDERED: DEXTROSE 50% 50 ML SYRINGE IV PRN (21:49)
[2024-10-22] MEDS ORDERED: CARBOHYDRATES FOR HYPOGLYCEMIA PO PRN (21:49)
[2024-10-22] MEDS ORDERED: GLUCAGON FOR INJ 1 MG VIAL SQ PRN (21:49)
[2024-10-22] MEDS ORDERED: POLYETHYLENE (MIRALAX) 17 GM PACK PO PRN (21:49)
[2024-10-22] MEDS ORDERED: PHARMACIST DISCHARGE MED REC CONSULT PRN (21:49)
[2024-10-22] MEDS ORDERED: GLUCOSE 40% GEL 15 GM TUBE PO PRN (21:49)
[2024-10-22] MEDS ORDERED: NITROGLYCERIN SL 0.4 MG/TAB TAB SL PRN (21:49)
[2024-10-22] MEDS ORDERED: LABETALOL HCL IV 5 MG/ML 20ML IV PRN (21:49)
[2024-10-22] MEDS ORDERED: GLUCOSE 10 TAB/TUBE PO PRN (21:49)
[2024-10-22] MEDS: SODIUM CHLORIDE 0.9% 1,000 ML IV SCH (22:17)
[2024-10-22] MEDS: INSULIN ASPART PER UNIT CHARGE SC SCH (22:23)
[2024-10-22] MEDS: APIXABAN 5 MG TABLET PO SCH (22:29)
[2024-10-22] MEDS: GABAPENTIN 300 MG CAP PO SCH (22:29)
[2024-10-23 07:06] LABS: BUN Creatinine Ratio 16.3 (10-20); Calcium 9.1 mg/dl (8.6-10.3); Chol HDL Ratio 2.9 (0-5); Creatinine Clr Calc Pharmacy 45.5 ml/min; Magnesium 1.9 mg/dl (1.7-2.4); Potassium 4.4 mmol/L (3.5-5.1)
[2024-10-23 07:37] LABS: Estimated Average Glucose 146 mg/dl; Hemoglobin A1C 6.7 % (4.5-5.6)
[2024-10-23 08:24] LABS: Basophils # (auto) 0.08 K/uL (0.00-0.20); Basophils % (auto) 0.9 %; Eosinophils # (auto) 0.11 K/uL (0.00-0.50); Eosinophils % (auto) 1.3 %; Hematocrit (blood only) 36.2 % (42.0-52.0); Hemoglobin 12.5 g/dl (14.0-18.0); Immature Granulocytes # (auto) 0.13 K/uL (0.01-0.20); Immature Granulocytes % (auto) 1.5 %; Mean Corpuscular Hemoglobin 29.8 pg (25.0-34.0); Mean Corpuscular Hgb Conc 34.5 g/dL (32.0-36.0); Mean Corpuscular Volume 86.4 fL (80.0-100.0); Mean Platelet Volume 10.2 fL (9.4-12.4); Monocytes # (auto) 0.72 K/uL (0.11-0.59); Monocytes % (auto) 8.5 %; Neutrophils # (auto) 5.76 K/uL (1.40-6.50); Neutrophils % (auto) 67.8 %; Platelet Count 211 K/uL (130-400); RDW Coefficient of Variation 14.9 % (11.5-14.5); RDW Standard Deviation 46.6 fL (36.4-46.3); Red Blood Count 4.19 M/uL (4.70-6.10)
--- OUTSIDE RECORDS SUMMARY | 2024-10-23 08:26 | External Medical Summary ---
Author Name Unknown Address Unknown Organization : Laboratory Report Ordering Provider Test Date Status VASYL ELLIS 10/22/2024 15:34:50 Final Observation Date Value Abnormality Reference (Units ) Status Glucose Point of Care 10/22/2024 15:34:50 117 70-120 (mg/dL) Final Performing Location
--- OUTSIDE RECORDS SUMMARY | 2024-10-23 08:26 | External Medical Summary | Summary of Care ---
Author Name Unknown Organization [facility] Address [address] [place] [address] Phone [phone] Care Team Providers Care Milk Pickup Truck Driver Name Role Phone Rhonda Patrick DO Primary Care Provider [phone] Reason for Visit * Reason Comments Medication Refill Encounter Details Date Type Department Care Team (Late st Contact Info) Description 10/18/2024 Refill Family Practice [address] [place] [address] [place] [address] Rhonda Patrick DO [address] [place] [address] Dyslipidemia, goal LDL below 100; Recurrent deep vein thrombosis (DVT) (HCC) Allergies No known active allergiesdocumented as of this encounter (statuses as of 10/20/2024) Medications Acetaminophen 500 MG Oral Tablet Take 3 Tablets by mouth daily as needed for Pain, Breakthroug h. Active Sennosides-Docusa te Sodium 8.6-50 MG Oral Tablet Take 1 Tablet by mouth every other day. At bedtime Active Gabapentin 300 MG Oral Capsule (Neurontin) Take 1 Capsule by mouth in the morning and 1 Capsule before bedtime. Active Aspirin 81 MG Oral Tablet Delayed Release (SB Low Dose ASA EC) Take 1 Tablet by mouth in the morning. 4 07/24/20 25 Active Propranolol HCl 10 MG Oral Tablet (Inderal)Indicati ons:Other headache syndrome Take 0.5 Tablets by mouth in the morning and 0.5 Tablets before bedtime. 30 Tablet 3 4 Active Finasteride 5 MG Oral Tablet (Proscar)Indicati ons:BPH with obstruction/lower urinary tract symptoms Take 1 Tablet by mouth in the morning. 100 Tablet 3 07/07/2024 10:21 AM EST 4 Active Sertraline HCl 50 MG Oral Tablet (Zoloft)Indicatio ns:Current moderate episode of major depressive disorder without prior episode (HCC) Take 1 Tablet by mouth in the morning. 100 Tablet 3 07/18/2024 10:25 AM EST 4 Active metFORMIN HCl 1000 MG Oral Tablet (Glucophage)Indic ations:Type 2 diabetes mellitus with hemoglobin A1c goal of less than 7.0% (HCC),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 (HCC) Take 0.5 Tablets by mouth 2 times a day with morning and evening meals. TAKE 1 TABLET BY MOUTH TWICE DAILY WITH MORNING MEAL AND WITH EVENING MEAL 4 Active Amoxicillin-Pot Clavulanate 875-125 MG Oral Tablet (Augmentin) Take 1 Tablet by mouth in the morning and 1 Tablet before bedtime. Active Atorvastatin Calcium 40 MG Oral Tablet (Lipitor)Indicati ons:Dyslipidemia, goal LDL below 100 Take 1 Tablet by mouth in the morning. 100 Tablet 3 5 Active Apixaban 5 MG Oral Tablet (Eliquis)Indicati ons:Recurrent deep vein thrombosis (DVT) (HCC) Take 1 Tablet by mouth in the morning and 1 Tablet before bedtime. 200 Tablet 3 5 Active Atorvastatin Calcium 40 MG Oral Tablet (Lipitor)Indicati ons:Dyslipidemia, goal LDL below 100 Take 1 Tablet by mouth in the morning. 100 Tablet 3 06/13/2024 2:06 PM EST 4 10/19/19 25 Discontinu ed(Refill) Apixaban 5 MG Oral Tablet (Eliquis)Indicati ons:Recurrent deep vein thrombosis (DVT) (HCC) Take 1 Tablet by mouth in the morning and 1 Tablet before bedtime. 200 Tablet 3 06/13/2024 2:06 PM EST 10/19/19 25 Discontinu ed(Refill) documented as of this encounter (statuses as of 10/20/2024) Active Problems Problem Noted Date Diagnosed Date Chronic migraine without aur a without status migrainosus, not intractable 07/31/2024 Current moderate episode of major depressive disorder without prior episode 06/11/2024 Thrombocytopenia 06/11/2024 Cerebrovascular disease, arteriosclerotic, post- stroke 05/12/2024 Chronic kidney disease, stage 3a 11/05/2023 Overview: Per CKD protocol Type 2 diabetes mellitus wit h stage 3a chronic kidney disease and hypertension 07/09/2023 Overview: Per CKD protocol Odontogenic infection of jaw 06/29/2023 Other abnormalities of gait and mobility 022 Hemiplegia and hemiparesis f ollowing cerebral infarction affecting left non-dominant side 01/12/2022 Assessment & Plan (10/13/2022 5:15 PM EDT): At baseline -continue aspirin, statin, Eliquis, ACP (advance care planning) 09/12/2021 Aphasia, post-stroke 07/01/2021 Assessment & Plan (11/30/2022 4:27 PM EDT): At baseline. -continue aspirin, Eliquis, atorvastatin, propranolol Kidney stone on left side 05/12/2021 HTN, goal below 140/90 02/18/2021 Assessment & Plan (11/30/2022 4:27 PM EDT): BP slightly elevated, but stable. -continue propranolol 10 mg twice daily Assessment & Plan (10/13/2022 5:14 PM EDT): BP stable -continue propranolol Recurrent deep vein thrombosis (DVT) 02/18/2021 Assessment & Plan (11/30/2022 4:27 PM EDT): Stable -continue Eliquis Assessment & Plan (10/13/2022 5:14 PM EDT): Stable -continue Eliquis Lumbar degenerative disc disease 07/12/2016 BPH with obstruction/lower urinary tract symptom s 03/31/2014 History of elevated PSA 03/31/2014 Assessment & Plan (11/30/2022 4:29 PM EDT): Last PSA acceptable. Following closely with Urology. -continue finasteride and tamsulosin. Dyslipidemia, goal LDL below 100 06/23/2009 Type 2 diabetes mellitus wit h hemoglobin A1c goal of less than 8.0% 05/13/2009 Overview (11/23/2015): Modified per Diabetes protocol #14. ICD-10 update of inactive term nursing home current use of anticoagulant therapy 0 08/05/2003 Overview (04/30/2017): ICD-10 update of inactive term Varicose vein of leg documented as of this encounter (statuses as of 10/20/2024) Resolved Problems Problem Noted Date Diagnosed Date Resolved Date Migraine without status migr ainosus, not intractable 05/23/2024 09/17/2024 Facial cellulitis 06/28/2023 07/13/2023 On mechanically assisted ventilation 06/28/2023 06/29/2023 Acute respiratory failure with hypoxia 06/27/2023 06/29/2023 Epiglottitis 06/27/2023 06/29/2023 Eric's angina 06/26/2023 06/29/2023 Current mild episode of maria alejandra r depressive disorder without prior episode 02/01/2023 4 Fever 10/13/2022 10/23/2022 Overview (10/13/2022): Unsettling given the recent right knee infection -hold Tylenol tonight and monitor temperature -CBC, BMP, urinalysis -re-evaluation tomorrow Type 2 DM with CKD stage 3 and hypertension 10/02/2022 07/12/2023 Overview: Per CKD protocol Assessment & Plan (11/30/2022 4:28 PM EDT): Current Status: "Stable" for patient / At or near baseline Degree of Condition Awareness: Demonstrates very good awareness of condition, disease course, and prognosis "RED FLAG" Diabetic symptoms: o none Goal HgbA1c o <7 Diabetic Complications o Vascular (examples: PVD, PAD, CAD, CVA) Medication Regimen o Metformin DM Secondary Prevention o Moderate-High Intensity Statin o Aspirin Hemoglobin A1c 6.0. Assessment & Plan (10/13/2022 5:14 PM EDT): Blood sugars stable. -continue metformin 1000 mg twice daily Dizziness 05/31/2022 10/02/2022 History of CVA (cerebrovascular accident) 07/01/2021 09/17/2024 Ischemic cerebrovascular acc ident (CVA) of frontal lobe 02/04/2021 08/03/2022 DM type 2, not at goal 04/24/200705/13 Overview (05/13/2009): Modified per Diabetes protocol #14. ADVANCE DIRECTIVE INFORMATION 09/01/2005 01/17/2017 Overview (09/01/2005): No, Advance Directive brochure given to patient. Disorder of prostate 03/25/2003 018 Anticoagulation management encounter 01/24/2002 02/04/2021 VENOUS THROMBOSIS Recurrent 1983 and 1994 01/23/2020 Malaise and fatigue 11/20/19 12 PERFORAT TYMPAN MEMB NOS documented as of this encounter (statuses as of 10/20/2024) Immunizations Name Administration Dates Next Due H1N1 2008 Influenza, IM 09/24/2009 Pneumococcal Conjugate Vacc, 13 Valent (Prevnar) 04/20/2015 Pneumococcal Conjugate Vacci ne, 20-valent ([id number]) 07/24/2024 Pneumococcal Polysaccharide PPV23 (Pneumovax) 03/04/2014,09/21/2008 Seasonal Influenza [...] Answer Date Recorded PHQ Adult Total Score 1 06/11/2024 Hunger Vital Sign Answer Date Recorded Within [...] 05/12/2024 Transportation Needs Answer Date Record ed Do you have trouble getting a ride to medical visits or work? (Adult - for ages 18 years and over) Not on file 05/12/2024 Does your family have a hard [...] place to sleep at night? No 05/12/2024 Do you think you are at risk of becoming homeless? (Adult - for ages 18 years and over) Not on file 05/12/2024 Does your family worry about paying [...] ages 0-17 years) Not on file 05/12/2024 Food Insecurity Answer Date Recorded Within the past 12 months, y ou worried that your food would run out before you got the money to buy more. Never true 05/12/20 24 Within the past 12 months, t he food you bought just didn't last and you didn't have money to get more. Never true 05/12/2024 Do you need food for this week? No 05/12/2024 Sex and Gender Information Value Date Recorded Sex Assigned at Male 01/22/2019 7:34 AM EDT Legal Sex Male 6:02 AM EST Gender Identity Male 01/22/2019 7:34 AM EDT Sexual Orientation Straight 01/22/2019 7: 34 AM EDT documented as of this encounter Miscellaneous Notes * Telephone Encounter - Hilda Renteria RPh - 10/20/2024 8:06 AM EDTSigned Prescriptions: Disp Refills Atorvastatin Calcium 40 MG Oral Tablet (Li*100 Ta*3 Sig: Take 1 Tablet by mouth in the morning.Authorizing Provider: RHONDA PATRICK User: HILDA RENTERIA Apixaban 5 MG Oral Tablet (Eliquis) 200 Ta*3 Sig: Take 1 Tablet by mouth in the morning and 1 Tablet before bedtime.Authorizing Provider: RHONDA PATRICK User: HILDA RENTERIA documented in this encounter Plan of Treatment Upcoming Encounters Date Type Department Care Team (Late st Contact Info) Description 10/22/2024 3:00 PM EDT Office Visit Family Practice [address] [place] [address] [place] [address] Rhonda Patrick, DO [address] [facility], [place] [address] 10/30/2024 11:20 AM EDT [facility] Visit [facility] [address] [facility] [address] [facility], [place] [address] Rhonda Patrick, DO [address] [facility], [place] [address] 12/17/2024 2:00 PM EDT Office Visit Urology, [facility] [address] [place] [address] Alfredo Maguire MD [address] [place] [address] Scheduled Procedures Name Priority Associated Diagnoses Date/Ti me COLONOSCOPY FLEXIBLE PROXIMAL DIAGNOSTIC Recall History of colon polyps Health Maintenance Due Date Last Done Comments Adult Wellness Visit 11/08/2017 11/08/2016 Influenza Vaccine (FLU shot) (#1) 2024 06/27/2021, 05/12/2016, 04/20/2015, Additional history exists Diabetic Foot Exam 10/31/2024 11/01/2023, 0 11/01/2023, 10/23/2022, Additional history exists GFR 01/22/2025 07/24/2024, 06/29, 06/25/2024, Additional history exists HbA1c 01/22/2025 07/24/2024, 08/0 02/2024, 11/01/2023, Additional history exists Colonoscopy 01/25/2025 01/25/2022, 12/29, 07/18/2018, Additional history exists B-12 03/06/2025 03/06/2024, 07/0 12/2022, 01/12/2022, Additional history exists Albumin/Creatinine Ratio 05/12/2025 024, 06/15/2023, 08/03/2022, Additional history exists Depression Monitoring 06/11/2025 06/11/2024 CKD PHOS USE SMARTSET 37888 06/25/202505/31, 06/29/2023, 06/28/2023, Additional history exists CKD HGB USE SMARTSET 67481 07/24/202507/24, 07/24/2024, 07/09/2024, Additional history exists Diabetic Eye Exam 07/24/2025 07/24/2024, , 06/14/2023, Additional history exists DTap/Tdap Vaccines (2 - Td or Tdap) 08/13/2025 08/13/2015, 05/03/2006, 11/12/2000 Zoster Vaccines Completed 05/12/2020, 09/27, 11/20/2011 Pneumococcal Vaccine: 50+ Years Completed 07/24/2024, 04/20/2015, 03/04/2014, Additional history exists COVID-19 Vaccine Discontinued HPV (Gardasil) Vaccine Aged Out No lo nger eligible based on patient's age to complete this topic Hepatitis B Vaccine Aged Out No longe r eligible based on patient's age to complete this topic MENINGOCOCCAL (MENACTRA/MENVEO) Aged Out No longer eligible based on patient's age to complete this topic Meningitis B Vaccine (Bexsero/Trumemba) Aged Out No longer eligible based on patient's age to complete this topic documented as of this encounter Medical Devices Not on filedocumented as of this encounter Visit Diagnoses Diagnosis Fever, unspecified fever cause- Primary Advanced care planning/counseling discussion Other specified counseling HTN, goal below 140/90 Unspecified essential hypertension Recurrent deep vein thrombosis (DVT) (HCC) Type 2 DM with CKD stage 3 and hypertension (HCC) Hemiplegia and hemiparesis following cerebral infarction affecting left non- dominant side (HCC) Aphasia, post-stroke- Primary Unspecified cerebral artery occlusion with cerebral infarction HTN, goal below 140/90 Unspecified essential hypertension Recurrent deep vein thrombosis (DVT) (HCC) Type 2 DM with CKD stage 3 and hypertension (HCC) History of elevated PSA Personal history of other specified diseases Dyslipidemia, goal LDL below 100 Other and unspecified hyperlipidemia Recurrent deep vein thrombosis (DVT) (HCC) documented in this encounter Advance Directives Documents on File Type Date Recorded Patient Maid Supervisor Expl anation Advance Directives and Living Will 05/13/2022 ADVANCE DIRECTIVE / LIVING WILL Power of Barrel Builder 05/13/2022 POWER OF A TTORNEY * Full [...] Care Agent (per Health Care Power of Barrel Builder document) Care Teams Milk Pickup Truck Driver Relationship Specialty Start Date End Date Rhonda Patrick DO [address] [facility] [address] PCP - General Internal Medicine 03/04/24 documented as of this encounter
--- OUTSIDE RECORDS SUMMARY | 2024-10-23 08:26 | External Medical Summary | Summary of Care ---
Author Name Unknown Organization [facility] Address [address] [place] [address] Phone [phone] Care Team Providers Care Line Welder Name Role Phone Keo Patrick DO Primary Care Provider [phone] Reason for Visit * Reason Onset Date Comments Appointment 10/15/202410/16 Encounter Details Date Type Department Care Team (Late st Contact Info) Description 10/15/2024 Telephone Family Practice [address] [facility] [address] [place] [address] Keo Patrick DO [address] [place] [address] Appointment (10/16) Allergies No known active allergiesdocumented as of this encounter (statuses as of 10/17/2024) Medications Acetaminophen 500 MG Oral Tablet Take 3 Tablets by mouth daily as needed for Pain, Breakthrough . Active Sennosides-Docusa te Sodium 8.6-50 MG Oral Tablet Take 1 Tablet by mouth every other day. At bedtime Active Atorvastatin Calcium 40 MG Oral Tablet (Lipitor)Indicati ons:Dyslipidemia, goal LDL below 100 Take 1 Tablet by mouth in the morning. 100 Tablet 3 06/13/2024 2:06 PM EST 4 Active Apixaban 5 MG Oral Tablet (Eliquis)Indicati ons:Recurrent deep vein thrombosis (DVT) (HCC) Take 1 Tablet by mouth in the morning and 1 Tablet before bedtime. 200 Tablet 3 06/13/2024 2:06 PM EST 4 Active Gabapentin 300 MG Oral Capsule (Neurontin) [...] morning and 1 Tablet before bedtime. Active documented as of this encounter (statuses as of 10/17/2024) Active Problems Problem Noted Date Diagnosed Date [...] protocol #14. 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 helper current use of anticoagulant therapy 0 08/05/2003 Overview (04/30/2017): ICD-10 update of inactive term Varicose vein of leg documented as of this encounter (statuses as of 10/17/2024) Resolved Problems Problem Noted Date Diagnosed Date [...] as of this encounter (statuses as of 10/17/2024) Immunizations Name Administration Dates Next Due H1N1 2009 Influenza, IM 09/24/2009 Pneumococcal Conjugate Vacc, 13 Valent (Prevnar) 04/20/2015 Pneumococcal Conjugate Vacci ne, 20-valent ([id number]) 07/24/2024 Pneumococcal Polysaccharide PPV23 (Pneumovax) 03/04/2014,09/21/2008 Seasonal [...] encounter Miscellaneous Notes * Telephone Encounter - Benigno Saenz MED ASSIST - 10/17/2024 12:51 PM EDT Patient scheduled for October 22. * Telephone Encounter - Krystal Barclay LPN - 10/17/2024 12:05 PM EDT Spoke to Montse, she is aware and will comply. Please call and schedule an office visit with DR Patrick for next week. Thank you * Telephone Encounter - Keo Patrick DO - 10/17/2024 9:29 AM EDT Schedule patient next week. * Telephone Encounter - Benigno Saenz MED ASSIST - 10/16/2024 3:34 PM EDT Roby returned called stated patient is doing good. He ate last night and this morning. Still has some abdominal pain but not as bad, still taking antibiotic. * Telephone Encounter - Krystal Barclay LPN - 10/16/2024 3:25 PM EDT Called Roby, left message for him to return call. Roby is friend. * Telephone Encounter - Krystal Barclay LPN - 10/16/2024 1:10 PM EDT Called spoke to Montse. Montse thinks he is doing better. She will check with her spouse as she is not home. Montse will call us back today with update. Thank you * Telephone Encounter - Keo Patrick DO - 10/16/2024 12:41 PM EDT Check status. Needs visit. * Telephone Encounter - Krystal Woo RN - 10/15/2024 9:39 AM EDT Call to pt's friend, Montse, she states she is not currently with the pt and she gave me her 's phone number to call-he is with pt. Call to Roby, pt's friend-states pt is still having some abdominal pain pretty constant but not near as bad as prior to going to ER on 10/09/24. Diarrhea has improved also. He is eating and drinking.He is taking his Augmentin as directed- he doesn't eat with his medications in the morning-usually eats a little later. Told it would be good to eat a little something when taking his antibiotic to help prevent stomach upset. Pt does eat activia yogurt-told to continue to try to eat daily-again to help protect his stomach. He feels pt is doing well and he will continue to monitor and will call with any new or worsening symptoms. Pt has appt with Dr Patrick on . Told I would send a message to Dr Patrick to see if agreeable with appt or if feels he needs to be seen sooner. * Telephone Encounter - Tonja Metcalf OSA - 10/15/2024 8:23 AM EDT ain and/or Headache PAIN: Yes Location of Pain: abd Additional Comment(s) Additional Comments: Patient's daughter calling asking for an appt. Patient was in the hospital fordiverticulitis and put on amoxicillin a week ago but still have belly pain. Patient Request Patient Requesting: Appointment No appts available for acute documented in this encounter Plan of Treatment Upcoming Encounters Date Type Department Care Team (Late st Contact Info) Description 10/22/2024 3:00 PM EDT Office Visit [address] [place] [address] eKo Patrick, DO [address] [place] [address] 10/30/2024 11:20 AM EDT Office Visit [address] [place] [address] Keo Patrick, DO [address] [place] [address] 12/17/2024 2:00 PM EDT Office Visit Urology, [facility] [address] [place] [phone] Alfredo Maguire MD [address] [place] [address] Scheduled Procedures Name Priority Associated Diagnoses Date/Ti [...] 11/01/2023, Additional history exists Colonoscopy 01/25/2025 01/25/2022, 2 03/2022, 07/18/2018, Additional history exists B-12 03/06/2025 03/06/2024, 07/0 12/2022, 01/12/2022, Additional history exists Albumin/Creatinine Ratio 05/12/2025 024, 06/15/2023, 08/03/2022, Additional history exists Depression Monitoring 06/11/2025 06/11/2024 CKD PHOS USE SMARTSET 49515 06/25/202505/31, 06/29/2023, 06/28/2023, Additional history exists CKD HGB USE SMARTSET 58105 07/24/202507/24, 07/24/2024, 07/09/2024, Additional history exists Diabetic [...] Documents on File Type Date Recorded Patient Senior Product Development Engineer Expl anation Advance Directives and Living Will 05/13/2022 ADVANCE DIRECTIVE / LIVING WILL Power of Gaming Worker 05/13/2022 POWER OF A TTORNEY * Full [...] Care Agent (per Health Care Power of Gaming Worker document) Care Teams Line Welder Relationship Specialty Start Date End Date Keo Patrick DO [address] [place] [address] PCP - General Internal Medicine 03/04/24 documented as of this encounter
--- OUTSIDE RECORDS SUMMARY | 2024-10-23 08:26 | External Medical Summary | Summary of Care ---
Author Name Unknown Organization [facility] Address [address] [place] [address] Phone [phone] Care Team Providers Care Mounter Brass [employer] Name Role Phone Keo Patrick DO Primary Care Provider [phone] Reason for Visit * Reason Onset Date Comments Information 10/14/2024 ER call. Encounter Details Date Type Department Care Team (Late st Contact Info) Description 10/14/2024 Telephone Family Practice [address], [place] [address] [place] [address] Keo Patrick DO [address] [place], [place] [id number] Information (ER call. ) Allergies No known active allergiesdocumented as of this encounter (statuses as of 10/15/2024) Medications Acetaminophen 500 MG Oral Tablet Take [...] as of this encounter (statuses as of 10/15/2024) Active Problems Problem Noted Date Diagnosed Date [...] protocol #14. ICD-10 update of inactive term medical terminologist current use of anticoagulant therapy 0 08/05/2003 Overview (04/30/2017): ICD-10 update of inactive term Varicose vein of leg documented as of this encounter (statuses as of 10/15/2024) Resolved Problems Problem Noted Date Diagnosed Date [...] as of this encounter (statuses as of 10/15/2024) Immunizations Name Administration Dates Next Due H1N1 2009 Influenza, IM 09/24/2009 Pneumococcal Conjugate Vacc, 13 Valent (Prevnar) 04/20/2015 Pneumococcal Conjugate Vacci ne, 20-valent ([id number]) 07/24/2024 Pneumococcal Polysaccharide PPV23 (Pneumovax) 03/04/2014,09/21/2008 Seasonal [...] encounter Miscellaneous Notes * Telephone Encounter - Keo Patrick DO - 10/14/2024 4:19 PM EDT Noted * Telephone Encounter - Krystal Barclay LPN - 10/14/2024 3:37 PM EDT The patient was contacted in regards to their recent: Emergency Department visit Did patient call the office before going to ER: No When was patient seen: 10/09 Which ED: [facility] What were they seen for: stomach pain What did ED think was wrong (dx): diverticulitis What testing did they have done: Ct scan blood work Any new medications prescribed Augmentin When did the ED recommend they follow up: yes Is Ed record available: Yes How is patient feeling today: not eating much Patient concerns today: some loose stools. Offered sooner appt if needed. Encourage fluids and/or ensure. Thank you documented in this encounter Plan of Treatment Upcoming Encounters Date Type Department Care Team (Late st Contact Info) Description 10/30/2024 11:20 AM EDT Office Visit Family Practice [address] [facility] [place] [facility] [address] Keo [facility] DO [address] [facility] [place] [address] 12/17/2024 2:00 PM EDT Office Visit Urology, [facility] [address] [facility] [place] [address] Alfredo Maguire MD [address] [place] [address] Scheduled Procedures Name Priority Associated Diagnoses Date/Ti [...] Monitoring 06/11/2025 06/11/2024 CKD PHOS USE SMARTSET 47144 06/25/202505/31, 06/29/2023, 06/28/2023, Additional history exists CKD HGB USE SMARTSET 04265 07/24/202507/24, 07/24/2024, 07/09/2024, Additional history exists Diabetic [...] Documents on File Type Date Recorded Patient Patient Accounts Manager Expl anation Advance Directives and Living Will 05/13/2022 ADVANCE DIRECTIVE / LIVING WILL Power of Associate Spa Director 05/13/2022 POWER OF A TTORNEY * Full [...] Care Agent (per Health Care Power of Associate Spa Director document) Care Teams Mounter Brass [employer] Relationship Specialty Start Date End Date Keo Patrick DO [address] [place] [address] PCP - General Internal Medicine 03/04/24 documented as of this encounter
[2024-10-23] MEDS: FINASTERIDE 5 MG TAB PO SCH (09:07)
[2024-10-23] MEDS: ATORVASTATIN 40 MG TAB PO SCH (09:08)
[2024-10-23] MEDS: SERTRALINE HCL 50 MG TABLET PO SCH (09:08)
[2024-10-23] MEDS: ASPIRIN 81 MG ECTAB PO SCH (09:08)
--- NOTE | 2024-10-23 09:50 | Hospitalist Progress Note ---
Date of Service October 23, 2024 Assessment & Plan (1) Stroke-like symptom: Plan: 74-year-old male with past medical history significant for type 2 diabetes, hyperlipidemia, recurrent DVT, hypertension, BPH, history of kidney stone, CKD stage III, lumbar degenerative disease, chronic migraine, history of thrombocytopenia, depression, history of right frontal CVA in 2016, left parietal lobe CVA in 05/2021, right frontoparietal CVA in 04/2024 and admissions for toxic and metabolic encephalopathy in 04/2024 and gabapentin dose was reduced and duloxetine was stopped and patient was started on Zoloft and also patient was admitted that time for suicidal ideation to behavioral health unit comes today because of strokelike symptoms. Patient was started on Augmentin on 10/09/2024 for acute diverticulitis. Patient says he still has some abdominal pain and has diarrhea and had 1 episode diarrhea today. Patient went to PCP office today for follow-up. At PCPs office patient was having worsening aphasia mid conversation and felt dizzy. And was unable to follow directions for few minutes. He is blood sugars were okay and EKG showed sinus bradycardia with no acute ST changes. And patient was sent to the hospital. He was stroke alert. In the ER he was back to baseline. CT head, CTA head and neck are unremarkable. Currently resting comfortably. Hemodynamics are okay. Denies any headache. Patient says had blurred vision earlier but improved now. No headache. No runny nose. No sore throat. No cough. No difficulty swallowing. Denies chest pain. Says he gets on and off short of breath. No nausea, no abdominal pain. Had 1 episode of diarrhea today. No blood in the stools. Patient says difficult to initiate micturating but once starts micturating he does okay. No swelling in the legs. Afebrile. Lives with a friend. Says ambulates without support. But today was feeling little bit off balance. Strokelike symptoms Brief episode of difficulty speaking History of multiple CVAs in the past and last was in 04/[address] head, CTA head and neck unremarkable Currently patient is back to baseline Justyna neurology recommended MRI brain Will do full stroke workup with MRI brain, echo Echo - mild concentric LVH. LV syst. function is normal. LV EF 55-60%. LV wall motion is normal. RV is normal in size and function. Aortic valve sclerosis moderate, w/o significant aortic valvular stenosis. Per previous studies - no interatrial shunt. Neurochecks every 2 hours PT OT Continue home aspirin and Eliquis and statin Previous admissions aspirin was stopped because of thrombocytopenia but was restarted as outpatient as platelets improved Neuroconsult in a.m. for further recommendations MRI brain - ordered Hypertension Currently on propranolol Will hold for permissive hypertension IV labetalol as needed Last admission losartan was started but was stopped as outpatient along with Flomax as he was having orthostatic hypotension Will monitor Hyperkalemia and hyponatremia K5.9 and sodium 130 received dose of Lokelma and calcium gluconate Gentle fluids Low potassium diet Na now 136 and K4.4 Nephrology consulted for further recommendations Obstructive sleep apnea Started on CPAP about a month ago as per patient Diabetes Hold metformin Insulin sliding scale Will monitor Current HbA1c 6.7% BPH Continue Proscar History of recurrent DVT On Eliquis Hyperlipidemia On statin CKD stage III Presented creatinine 1.3 Will follow the labs Recent diverticulitis Was treated with Augmentin for 10 days starting 10/09/2024 Still some abdominal discomfort If patient continues to have pain we will get a repeat CT scan Depression On Zoloft Chronic anemia Hemoglobin 11.6 on admission, now 12.5 -around baseline we will follow labs. Migraines Monitor Will restart propranolol DVT prophylaxis On Eliquis Disposition Telemetry Full code Admission and Anticipated Discharge Date Admission Date: October 22, 2024 Subjective Pt seen in follow up of stroke like symptoms speech difficulty, blurry vision - now seem resolved pt also recently treated for diverticulitis, says he still has some abd. discomfort and poor appetite because of that Pt afebrile and WBC normal (on 10/09 WBC was 19.8K) brain MRI pending Review of Systems Review of Systems: All systems reviewed & are unremarkable except as noted in Subjective Physical Exam Physical Exam: General- WD/WN M in NAD Head- atraumatic Eyes- PERRL. Neck- supple Lungs- clear to auscultation no wheezing or crackles Heart- regular rate and rhythm; no murmur, no gallop. Abdomen- normal bowel sounds, soft, mild discomfort in lower abdomen, no distension. Extremities- no pretibial edema, no erythema seen Neuro- alert, oriented x 3; PERRL, no facial palsy; no dysarthria; motor 5/5 bilaterally; moves extremities Skin- warm & dry Results & Data Results & Data Vital Signs (Past 12 Hours) Vital Signs Temp Pulse Pulse Pulse Resp BP Pulse Ox 10/23/24 07:32 70 10/23/24 07:15 36.5 C 58 L 19 144/84 H 98 10/23/24 03:53 36.5 C 76 18 132/80 97 10/22/24 23:00 61 10/22/24 22:11 58 L 10/22/24 21:53 36.4 C L 71 18 159/103 H 99 O2 Del Method 10/23/24 07:32 10/23/24 07:15 Room Air 10/23/24 03:53 Room Air 10/22/24 23:00 10/22/24 22:11 10/22/24 21:53 Room Air Laboratory Results 10/23/24 10/23/24 10/22/24 Range/Units 07:13 06:25 21:57 WBC 8.50 (4.8-10.8) K/ul RBC 4.19 L (4.70-6.10) M/uL Hgb 12.5 L (14.0-18.0) g/dl Hct 36.2 L (42.0-52.0) % MCV 86.4 (80.0-100.0) fL MCH 29.8 (25.0-34.0) pg MCHC 34.5 (32.0-36.0) g/dL RDW Std Deviation 46.6 H (36.4-46.3) fL RDW Coeff of Aranza 14.9 H (11.5-14.5) % Plt Count 211 (130-400) K/uL MPV 10.2 (9.4-12.4) fL Immature Gran % (Auto) 1.5 % Neut % (Auto) 67.8 % Lymph % (Auto) 20.0 % Dickenson % (Auto) 8.5 % Eos % (Auto) 1.3 % Baso % (Auto) 0.9 % Neut # (Auto) 5.76 (1.40-6.50) K/uL Lymph # (Auto) 1.70 (1.20-3.40) K/uL Dickenson # (Auto) 0.72 H (0.11-0.59) K/uL Eos # (Auto) 0.11 (0.00-0.50) K/uL Baso # (Auto) 0.08 (0.00-0.20) K/uL Immature Gran # (Auto) 0.13 (0.01-0.20) K/uL PT (9.0-12.0) Seconds INR (0.9-1.1) APTT (21-31) Seconds PTT Ratio Sodium 136 (136-145) mmol/L Potassium 4.4 D Chloride 103 (98-107) mmol/L Carbon Dioxide 24 (21-32) mmol/L Anion Gap 9 (3-11) BUN 21 (6-23) mg/dl Creatinine 1.29 (0.6-1.4) mg/dl Est Cr Clr Drug Dosing 45.5 ml/min eGFR 57.46 BUN/Creatinine Ratio 16.3 (10-20) Glucose 119 H (70-99(Fasting)) mg/dl POC Glucose 124 H 158 H (70-99) mg/dl Estimat Average Glucose 146 mg/dl Hemoglobin A1c 6.7 H (4.5-5.6) % Calcium 9.1 (8.6-10.3) mg/dl Magnesium 1.9 (1.7-2.4) mg/dl Total Bilirubin (0.2-1.0) mg/dl AST ALT (7-52) U/L Alkaline Phosphatase (34-104) U/L Troponin I High Sens (0-20) pg/ml Total Protein (6.0-8.3) gm/dl Albumin (3.4-5.0) gm/dl Globulin (2.5-4.0) gm/dl Albumin/Globulin Ratio (0.9-2) Triglycerides 170 H (0-150) mg/dl Cholesterol 81 (0-200) mg/dl LDL Cholesterol, Calc 19 mg/dl VLDL Cholesterol, Calc 34 H (0-30) mg/dl HDL Cholesterol 28 mg/dl Cholesterol/HDL Ratio 2.9 (0-5) 10/22/24 10/22/24 Range/Units 18:24 16:42 WBC 8.54 (4.8-10.8) K/ul RBC 3.88 L (4.70-6.10) M/uL Hgb 11.6 L (14.0-18.0) g/dl Hct 33.8 L (42.0-52.0) % MCV 87.1 (80.0-100.0) fL MCH 29.9 (25.0-34.0) pg MCHC 34.3 (32.0-36.0) g/dL RDW Std Deviation 47.0 H (36.4-46.3) fL RDW Coeff of Aranza 14.9 H (11.5-14.5) % Plt Count 220 (130-400) K/uL MPV 10.2 (9.4-12.4) fL Immature Gran % (Auto) 1.9 % Neut % (Auto) 72.5 % Lymph % (Auto) 16.6 % Dickenson % (Auto) 6.9 % Eos % (Auto) 1.4 % Baso % (Auto) 0.7 % Neut # (Auto) 6.19 (1.40-6.50) K/uL Lymph # (Auto) 1.42 (1.20-3.40) K/uL Dickenson # (Auto) 0.59 (0.11-0.59) K/uL Eos # (Auto) 0.12 (0.00-0.50) K/uL Baso # (Auto) 0.06 (0.00-0.20) K/uL Immature Gran # (Auto) 0.16 (0.01-0.20) K/uL PT 11.7 (9.0-12.0) Seconds INR 1.1 (0.9-1.1) APTT 32 H (21-31) Seconds PTT Ratio 1.2 Sodium 130 L (136-145) mmol/L Potassium 5.9 H TNP Chloride 97 L (98-107) mmol/L Carbon Dioxide 28 (21-32) mmol/L Anion Gap 5 (3-11) BUN 24 H (6-23) mg/dl Creatinine 1.37 (0.6-1.4) mg/dl Est Cr Clr Drug Dosing 46.8 ml/min eGFR 53.46 BUN/Creatinine Ratio 17.5 (10-20) Glucose 179 H (70-99(Fasting)) mg/dl POC Glucose (70-99) mg/dl Estimat Average Glucose mg/dl Hemoglobin A1c (4.5-5.6) % Calcium 8.9 (8.6-10.3) mg/dl Magnesium 1.9 (1.7-2.4) mg/dl Total Bilirubin 0.8 (0.2-1.0) mg/dl AST 45 H TNP ALT 37 (7-52) U/L Alkaline Phosphatase 64 (34-104) U/L Troponin I High Sens 4.8 (0-20) pg/ml Total Protein 6.1 (6.0-8.3) gm/dl Albumin 3.8 (3.4-5.0) gm/dl Globulin 2.3 L (2.5-4.0) gm/dl Albumin/Globulin Ratio 1.7 (0.9-2) Triglycerides (0-150) mg/dl Cholesterol (0-200) mg/dl LDL Cholesterol, Calc mg/dl VLDL Cholesterol, Calc (0-30) mg/dl HDL Cholesterol mg/dl Cholesterol/HDL Ratio (0-5) Medications Administered Current Inpatient Medications Acetaminophen (Acetaminophen 325 Mg Tab) 650 mg PO Q4H PRN PRN Reason: Pain or Fever Stop: 11/21/24 21:48 Apixaban (Apixaban 5 Mg Tablet) 5 mg PO BID [facility] Stop: 11/21/24 21:48 Last Admin: 10/23/24 09:08 Dose: 5 mg Aspirin (Aspirin 81 Mg Ectab) 81 mg PO DAILY [facility] Stop: 11/22/24 08:59 Last Admin: 10/23/24 09:08 Dose: 81 mg Atorvastatin Calcium (Atorvastatin 40 Mg Tab) 40 mg PO QAM [facility] Stop: 11/22/24 08:59 Last Admin: 10/23/24 09:08 Dose: 40 mg Dextrose (Dextrose 50% 50 Ml Syringe) 25 - 50 ml IV UD PRN; Protocol PRN Reason: Hypoglycemia Protocol Stop: 11/21/24 21:48 Docusate Sodium (Docusate Sodium 100 Mg Cap) 100 mg PO [email or web address] [facility] Stop: 11/22/24 20:59 Finasteride (Finasteride 5 Mg Tab) 5 mg PO QAM [facility] Stop: 11/22/24 08:59 Last Admin: 10/23/24 09:07 Dose: 5 mg Gabapentin (Gabapentin 300 Mg Cap) 300 mg PO BID [facility] Stop: 11/21/24 21:48 Last Admin: 10/23/24 09:08 Dose: 300 mg Glucagon (Glucagon For Inj 1 Mg Vial) 1 mg SQ UD PRN; Protocol PRN Reason: Hypoglycemia Protocol Stop: 11/21/24 21:48 Glucose (Glucose 40% Gel 15 Gm Tube) 15 - 30 gm PO UD PRN; Protocol PRN Reason: Hypoglycemia Protocol Stop: 11/21/24 21:48 Glucose (Glucose 10 Tab/Tube) 4 - 8 tab PO UD PRN; Protocol PRN Reason: Hypoglycemia Protocol Stop: 11/21/24 21:48 Sodium Chloride (Nss) 1,000 mls @ 80 mls/hr IV .[id number] [facility] Stop: 10/23/24 21:48 Last Admin: 10/22/24 22:17 Dose: 80 mls/hr Insulin Aspart (Insulin Aspart Per Unit Charge) 0 units SC ACHS [facility] Stop: 11/21/24 21:48 Last Admin: 10/23/24 08:47 Dose: Not Given Labetalol HCl (Labetalol Hcl Iv 5 Mg/Ml 20ml) 5 mg IV Q4H PRN PRN Reason: Hypertension Stop: 11/21/24 21:48 Miscellaneous (Carbohydrates For Hypoglycemia ) 15 - 30 gm PO UD PRN PRN Reason: Hypoglycemia Protocol Stop: 11/21/24 21:48 Miscellaneous Information (Pharmacist Discharge Med Rec Consult) 1 each N/A UD PRN PRN Reason: Consult Stop: 11/21/24 21:48 Nitroglycerin (Nitroglycerin Sl 0.4 Mg/Tab Tab) 0.4 mg SL Q5M PRN PRN Reason: Chest Pain Stop: 11/21/24 21:48 Polyethylene Glycol (Polyethylene (Miralax) 17 Gm Pack) 17 gm PO DAILY PRN PRN Reason: Constipation Stop: 11/21/24 21:48 Sertraline HCl (Sertraline Hcl 50 Mg Tablet) 50 mg PO QAM [facility] Stop: 11/22/24 08:59 Last Admin: 10/23/24 09:08 Dose: 50 mg
--- NOTE | 2024-10-23 10:08 | Nephrology Consultation ---
Date of Consultation October 23, 2024 Assessment & Plan (1) Hyponatremia: na was 130 On admission. promptly normalized with NS. This means this was a case of true Hypovolemic Hyponatremia. Not on Any diuretics at home. Does not appear he was having any GI symptoms as such nor was he drinking a lot. Given totally normal Na now I dont see the point of doing Hyponatremia workup now. BP is normal. Normal exam and no Acute symptoms now. Also no prior h/o Low Na. On SSRI--Not sure how long he has been on this ?? But with normal na now and before I dont want to change that. Continue NS for now. Daily BMP. No need for any specfic Intervention for low Na (2) Hyperkalemia: One reading of high K on admission but normal now after NS and dose of Lokelma. No prior h/o this. Maybe volume Depletion caused transient high K. No need to continue Lokelma. Not on Any meds to cause high K. Cannot confirm about NSAID use. Daily BMP. Plan time spent 47 mins. History of Present Illness Reason for Consultation: Hyperkalemia and Hyponatremia Attending Physician: Uche Denson MD History of Present Illness 74/M with type 2 diabetes, recurrent DVT, hypertension, BPH, history of kidney stone, CKD stage III, lumbar degenerative disease, chronic migraine, history of thrombocytopenia, depression, history of right frontal CVA in 2016, left parietal lobe CVA in 05/2021, right frontoparietal CVA in 04/2024 and admissions for toxic and metabolic encephalopathy in 04/2024 was sent by PCP because of strokelike symptoms. Previous admission gabapentin dose was reduced and duloxetine was stopped and patient was started on Zoloft and also patient was admitted that time for suicidal ideation to behavioral health unit. Patient went to PCP office yesterday for follow-up. He was having worsening aphasia mid conversation and felt dizzy. And was unable to follow directions for few minutes. He was stroke alert. In the ER he was back to baseline. CT head, CTA head and neck are unremarkable. Currently resting comfortably. Hemodynamics are okay. Denies any headache. na was low at 130 and K was 5.9. Got IVF--NS and with that Na and K normal this Morning. making lot of urine. Renal function normal baseline Creat 1.2--1.3 ROS--hard to obtain. He seems somewhat confused and not quite sure what all happened. Anyway 12 systems reviewed and is currently negative Physical Exam Physical Exam: General- Not in distress Head- atraumatic ENT- oropharynx clear Neck- supple, no JVD. Lungs- clear to auscultation no wheezing or crackles Heart- regular rate and rhythm; no murmur, no gallop. Abdomen- soft, Non tender no distension. Extremities- no pretibial edema, no erythema seen Skin- warm & dry Allergies Allergy/AdvReac Type Severity Reaction Status Date / Time No Known Allergies Allergy Verified 10/22/24 16:35 Home Medications Medication Instructions Recorded Confirmed Type apixaban 5 mg tablet (Eliquis) 5 mg PO BID 30 days #60 tabs 02/02/21 10/22/24 Rx metformin 1,000 mg tablet 500 mg PO BIDM 02/12/21 10/22/24 History atorvastatin 40 mg tablet (Lipitor) 40 mg PO QAM 03/29/21 10/22/24 History finasteride 5 mg tablet 5 mg PO QAM 05/08/24 10/22/24 History docusate sodium 100 mg capsule 100 mg PO [id number] 05/15/24 10/22/24 History (Stool Softener) propranolol 10 mg tablet 5 mg (1/2 x 10 mg) PO BID #15 tabs 05/19/24 10/22/24 Rx sertraline 50 mg tablet 50 mg PO QAM 30 days #30 tabs 05/30/24 10/22/24 Rx acetaminophen 500 mg tablet 500 mg PO TID PRN Pain 10/22/24 10/22/24 History (Tylenol Extra Strength) aspirin 81 mg tablet,delayed 81 mg PO DAILY 10/22/24 10/22/24 History release gabapentin 300 mg capsule 300 mg PO BID 10/22/24 10/22/24 History Patient History Medical History Knee pain, right MAGY (acute kidney injury) Weakness MAGY (acute kidney injury) Elevated troponin Anemia Kidney stones Stroke 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 ischemic stroke, residual mild weakness and short- term memory impairment Pulmonary embolism 1993- on Eliquis Hydronephrosis with urinary obstruction due to ureteral calculus Hypertension Surgical History History of back surgery No hardware History of cystoscopy Cystoscopy, left retropyelogram, Left ureteral stent placement (03/30/21): LMA#4 at [facility] H/O colonoscopy History of tympanoplasty of right ear Status post appendectomy Family History Uncle Family history of diabetes mellitus Other Heart disease Social History Smoking Status: Former smoker Tobacco Type: Declines Second Hand Exposure: No; Do You Dip or Chew Tobacco: No; Hx Alcohol Use: No Hx Substance Use: No Preferred Language: Sammarinese Communication Ability: Effective Medical Sociologist Required: No Beliefs That Will Affect Care: None marital status: / Current Living Situation: Other Current Living Situation Comment: lives with Friend, Montse current occupation: NOT WORKING How many Children do You have: 0 Other Information That Helps Us Care for You: No Feels Safe at Home: Yes Safety Concerns: Feels Safe At This Time Gender Identity: Transgender Male Assistive Devices: CPAP Results & Data Vital Signs (Past 12 Hours) Vital Signs Temp Pulse Pulse Resp BP Pulse Ox O2 Del Method 10/23/24 07:32 70 10/23/24 07:15 36.5 C 58 L 19 144/84 H 98 Room Air 10/23/24 03:53 36.5 C 76 18 132/80 97 Room Air 10/22/24 23:00 61 10/22/24 22:11 58 L Laboratory Results CBC renal panel UA .
[2024-10-23] MEDS: THIAMINE HCL 200 MG in SODIUM CHLORIDE 0.9% 50 ML IV SCH (11:36)
--- NOTE | 2024-10-23 12:10 | Electrocardiogram Report ---
Test Reason : Blood Pressure : */* mmHG Vent. Rate : 58 BPM Atrial Rate : 58 BPM P-R Int : 162 ms QRS Dur : 80 ms QT Int : 458 ms P-R-T Axes : 73 -8 72 degrees QTcB Int : 449 ms Sinus bradycardia Otherwise normal ECG When compared with ECG of 09-Jul-2024 14:59, No significant change was found Confirmed by Aidan Powell ([id number]) on 10/23/2024 12:10:14 PM Referred By: Keo Patrick Confirmed By: Aidan Powell
--- NOTE | 2024-10-23 12:21 | Electrocardiogram Report ---
Test Reason : Blood Pressure : */* mmHG Vent. Rate : 56 BPM Atrial Rate : 56 BPM P-R Int : 154 ms QRS Dur : 78 ms QT Int : 436 ms P-R-T Axes : 60 -23 44 degrees QTcB Int : 420 ms Poor data quality, interpretation may be adversely affected Sinus bradycardia Otherwise normal ECG When compared with ECG of 22-Oct-2024 16:35, (unconfirmed) No significant change was found Confirmed by Aidan Powell ([id number]) on 10/23/2024 12:21:11 PM Referred By: Keo Patrick Confirmed By: Aidan Powell
--- NOTE | 2024-10-23 13:04 | Neurology Consultation ---
Date of Consultation October 23, 2024 Assessment & Plan (1) Stroke-like symptom: Neo Solis is a 74 yo M presenting with transient dysfluency, now resolved. He is on maximal medical therapy with appropriate anticoagulation. 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 Suspect transient recrudesence likely secondary to hyponatremia. -- No further neurologic worklup, patient can remain on his prior risk factor reduction regimen Telehealth Consultation Telehealth Information Telehealth Information: I performed this visit using a real-time telehealth connection between my location and the patients location ([facility]). After connecting through interactive tele-video, patient was identified by name and date of and/or wristband check.Patient (or authorized healthcare re presentative) was informed that this was a telemedicine visit and it was being conducted confidentially over secure lines. My office door was closed and no one else was present in the room with me.Patient (or authorized healthcare ambulatory service representative) provided consent to proceed with the visit, expressed an understanding of privacy and security of the telemedicine visit, and gave permission to have a hospital ambulatory service representative in the room in order to assist with the visit and to conduct portions of the visit, as needed. I informed the patient (or authorized healthcare ambulatory service representative) that I reviewed their record and presented the opportunity for them to ask any questions regarding the visit today. The patient agreed to participate. History of Present Illness Reason for Consultation: Change in speech Requesting Physician: Dr. Denson Attending Physician: Uche Denson MD History of Present Illness Neo Solis is a 74 yo M with a history of prior stroke and resulting post-stroke dysarthria presenting at the request of his PCP for change in speech. The patient feels that his speech is at baseline and has been unchanged since his prior stroke. However, per nursing, he was far more dysfluent yesterday than he is today. The patient reports he often has intermittent difficulty pronouncing words. Denies any new weakness or numbness otherwise, no headache. Lives with friends who help care for him and is anxious to return home. He reports good compliance with his medications including eliquis. Allergies Allergy/AdvReac Type Severity Reaction Status Date / Time No Known Allergies Allergy Verified 10/22/24 16:35 Home Medications Medication Instructions Recorded Confirmed Type apixaban 5 mg tablet (Eliquis) 5 mg PO BID 30 days #60 tabs 02/02/21 10/22/24 Rx metformin 1,000 mg tablet 500 mg PO BIDM 02/12/21 10/22/24 History atorvastatin 40 mg tablet (Lipitor) 40 mg PO QAM 03/29/21 10/22/24 History finasteride 5 mg tablet 5 mg PO QAM 05/08/24 10/22/24 History docusate sodium 100 mg capsule 100 mg PO 4XWK 05/15/24 10/22/24 History (Stool Softener) propranolol 10 mg tablet 5 mg (1/2 x 10 mg) PO BID #15 tabs 05/19/24 10/22/24 Rx sertraline 50 mg tablet 50 mg PO QAM 30 days #30 tabs 05/30/24 10/22/24 Rx acetaminophen 500 mg tablet 500 mg PO TID PRN Pain 10/22/24 10/22/24 History (Tylenol Extra Strength) aspirin 81 mg tablet,delayed 81 mg PO DAILY 10/22/24 10/22/24 History release gabapentin 300 mg capsule 300 mg PO BID 10/22/24 10/22/24 History Patient History Medical History Knee pain, right MAGY (acute kidney injury) Weakness MAGY (acute kidney injury) Elevated troponin Anemia Kidney stones Stroke 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 ischemic stroke, residual mild weakness and short- term memory impairment Pulmonary embolism 1993- on Eliquis Hydronephrosis with urinary obstruction due to ureteral calculus Hypertension Surgical History History of back surgery No hardware History of cystoscopy Cystoscopy, left retropyelogram, Left ureteral stent placement (03/30/21): LMA#4 at [facility] H/O colonoscopy History of tympanoplasty of right ear Status post appendectomy Family History Uncle Family history of diabetes mellitus Other Heart disease Social History Smoking Status: Former smoker Tobacco Type: Declines Second Hand Exposure: No; Do You Dip or Chew Tobacco: No; Hx Alcohol Use: No Hx Substance Use: No Preferred Language: Lithuanian Communication Ability: Effective 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 Oriented to person, place, and time. mild dysfluency. Comprehension intact. Affect appropriate. Cranial Nerves: II: Reads NIHSS cards, pupils 3/3 to 2/2, robert grossly intact. III/IV/: Versions intact without nystagmus, no gaze preference. V: Facial sensation symmetric to light touch VII: Facial expression symmetric VIII: Hearing intact to voice IX/X: Palate elevates symmetrically XI: Shoulder shrug symmetric XII: Tongue midline Motor: Strength was symmetric and antigravity throughout. Pronator drift was absent. There were no abnormal movements. Sensory: Sensation to light touch was intact. Coordination: Finger to nose and heel to summers were intact. Reflexes: Unable to assess over telemedicine Results & Data Vital Signs (Past 12 Hours) Vital Signs Temp Pulse Pulse Resp BP Pulse Ox O2 Del Method 10/23/24 11:14 36.6 C 76 19 162/91 H 94 Room Air 10/23/24 07:32 70 10/23/24 07:15 36.5 C 58 L 19 144/84 H 98 Room Air 10/23/24 03:53 36.5 C 76 18 132/80 97 Room Air Laboratory Results Abnormal lab results 10/22/24 10/22/24 10/22/24 Range/Units 16:42 18:24 21:57 RBC 3.88 L (4.70-6.10) M/uL Hgb 11.6 L (14.0-18.0) g/dl Hct 33.8 L (42.0-52.0) % RDW Std Deviation 47.0 H (36.4-46.3) fL RDW Coeff of [place] 14.9 H (11.5-14.5) % [place] # (Auto) (0.11-0.59) K/uL APTT 32 H (21-31) Seconds Sodium 130 L (136-145) mmol/L Potassium 5.9 H (3.5-5.1) mmol/L Chloride 97 L (98-107) mmol/L BUN 24 H (6-23) mg/dl Glucose 179 H (70-99(Fasting)) mg/dl POC Glucose 158 H (70-99) mg/dl Hemoglobin A1c (4.5-5.6) % AST 45 H (13-39) U/L Globulin 2.3 L (2.5-4.0) gm/dl Triglycerides (0-150) mg/dl VLDL Cholesterol, Calc (0-30) mg/dl 10/23/24 10/23/24 10/23/24 Range/Units 06:25 07:13 11:05 RBC 4.19 L (4.70-6.10) M/uL Hgb 12.5 L (14.0-18.0) g/dl Hct 36.2 L (42.0-52.0) % RDW Std Deviation 46.6 H (36.4-46.3) fL RDW Coeff of [place] 14.9 H (11.5-14.5) % [place] # (Auto) 0.72 H (0.11-0.59) K/uL APTT (21-31) Seconds Sodium (136-145) mmol/L Potassium (3.5-5.1) mmol/L Chloride (98-107) mmol/L BUN (6-23) mg/dl Glucose 119 H (70-99(Fasting)) mg/dl POC Glucose 124 H 120 H (70-99) mg/dl Hemoglobin A1c 6.7 H (4.5-5.6) % AST (13-39) U/L Globulin (2.5-4.0) gm/dl Triglycerides 170 H (0-150) mg/dl VLDL Cholesterol, Calc 34 H (0-30) mg/dl Diagnostic Findings Head CT 10/22/24 16:19 EXAM: CT Angiography Head and Neck With Intravenous Contrast INDICATION: Dizziness. Dysarthria. TECHNIQUE: [place] [facility] [place]/head and neck CT angiography protocol performed with intravenous contrast. Sagittal and coronal reformatted images were created and reviewed. This CT exam was performed using one or more of the following dose reduction techniques: automated exposure control, adjustment of the mA and/or kV according to patient size, and/or use of iterative reconstruction technique. MIP reconstructed images were created and reviewed. CONTRAST: 118ml of Optiray 320 was administered intravenously. COMPARISON: 05/15/2024 FINDINGS: HEAD: Right anterior cerebral artery: No abnormality noted. No occlusion or significant stenosis. Anterior communicating artery is present. No aneurysm. Right middle cerebral artery: No abnormality noted. No occlusion or significant stenosis. No aneurysm. Right posterior cerebral artery: No abnormality noted. No occlusion or significant stenosis. No aneurysm. Right intracranial internal carotid artery: Minimal calcific plaque. No significant stenosis. No dissection or occlusion. Right intracranial vertebral artery: No abnormality noted. No significant stenosis. No dissection or occlusion. Left anterior cerebral artery: No abnormality noted. No occlusion or significant stenosis. No aneurysm. Left middle cerebral artery: No abnormality noted. No occlusion or significant stenosis. No aneurysm. Left posterior cerebral artery: No abnormality noted. No occlusion or significant stenosis. No aneurysm. Left intracranial internal carotid artery: Minimal calcific plaque. No significant stenosis. No dissection or occlusion. Left intracranial vertebral artery: No abnormality noted. No significant stenosis. No dissection or occlusion. Basilar artery: No abnormality noted. No occlusion or significant stenosis. No aneurysm. Other vasculature: Patent dural venous sinuses. No vascular malformation. Mastoid air cells: Stable chronic mastoid air cell thickening. No occlusion. NECK: Right common carotid artery: No abnormality noted. No significant stenosis. No dissection or occlusion. Right extracranial internal carotid artery: No abnormality noted. No significant stenosis. No dissection or occlusion. Right external carotid artery: No abnormality noted. No occlusion. Right extracranial vertebral artery: No abnormality noted. No significant stenosis. No dissection or occlusion. Left common carotid artery: No abnormality noted. No significant stenosis. No dissection or occlusion. Left extracranial internal carotid artery: Minimal calcific plaque noted.. No significant stenosis. No dissection or occlusion. Left external carotid artery: No abnormality noted. No occlusion. Left extracranial vertebral artery: No abnormality noted. No significant stenosis. No dissection or occlusion. Lung apices: No significant abnormality noted. HEAD and NECK: Bones/joints: No significant abnormality. Soft tissues: No abnormality noted. CAROTID STENOSIS REFERENCE USING NASCET CRITERIA: % ICA stenosis = (1 - narrowest ICA diameter/diameter of distal cervical ICA) x 100. Mild - <50% stenosis. Moderate - 50-69% stenosis. Severe - 70-94% stenosis. Near occlusion - 95-99% stenosis. Occluded - 100% stenosis. IMPRESSION: No large vessel occlusion, aneurysm, dissection or significant arterial stenosis in the head or neck. Findings discussed by phone with Dr. Johnson at 4:50 PM 10/22/2024 ACT 112: N/A Electronically signed by Sangita Osman 10-22-2024 4:55 PM Head CTA 10/22/24 16:19 EXAM: CT Angiography Head and Neck With Intravenous Contrast INDICATION: Dizziness. Dysarthria. TECHNIQUE: [place] [facility] [place]/head and neck CT angiography protocol performed with intravenous contrast. Sagittal and coronal reformatted images were created and reviewed. This CT exam was performed using one or more of the following dose reduction techniques: automated exposure control, adjustment of the mA and/or kV according to patient size, and/or use of iterative reconstruction technique. MIP reconstructed images were created and reviewed. CONTRAST: 118ml of Optiray 320 was administered intravenously. COMPARISON: 05/15/2024 FINDINGS: HEAD: Right anterior cerebral artery: No abnormality noted. No occlusion or significant stenosis. Anterior communicating artery is present. No aneurysm. Right middle cerebral artery: No abnormality noted. No occlusion or significant stenosis. No aneurysm. Right posterior cerebral artery: No abnormality noted. No occlusion or significant stenosis. No aneurysm. Right intracranial internal carotid artery: Minimal calcific plaque. No significant stenosis. No dissection or occlusion. Right intracranial vertebral artery: No abnormality noted. No significant stenosis. No dissection or occlusion. Left anterior cerebral artery: No abnormality noted. No occlusion or significant stenosis. No aneurysm. Left middle cerebral artery: No abnormality noted. No occlusion or significant stenosis. No aneurysm. Left posterior cerebral artery: No abnormality noted. No occlusion or significant stenosis. No aneurysm. Left intracranial internal carotid artery: Minimal calcific plaque. No significant stenosis. No dissection or occlusion. Left intracranial vertebral artery: No abnormality noted. No significant stenosis. No dissection or occlusion. Basilar artery: No abnormality noted. No occlusion or significant stenosis. No aneurysm. Other vasculature: Patent dural venous sinuses. No vascular malformation. Mastoid air cells: Stable chronic mastoid air cell thickening. No occlusion. NECK: Right common carotid artery: No abnormality noted. No significant stenosis. No dissection or occlusion. Right extracranial internal carotid artery: No abnormality noted. No significant stenosis. No dissection or occlusion. Right external carotid artery: No abnormality noted. No occlusion. Right extracranial vertebral artery: No abnormality noted. No significant stenosis. No dissection or occlusion. Left common carotid artery: No abnormality noted. No significant stenosis. No dissection or occlusion. Left extracranial internal carotid artery: Minimal calcific plaque noted.. No significant stenosis. No dissection or occlusion. Left external carotid artery: No abnormality noted. No occlusion. Left extracranial vertebral artery: No abnormality noted. No significant stenosis. No dissection or occlusion. Lung apices: No significant abnormality noted. HEAD and NECK: Bones/joints: No significant abnormality. Soft tissues: No abnormality noted. CAROTID STENOSIS REFERENCE USING NASCET CRITERIA: % ICA stenosis = (1 - narrowest ICA diameter/diameter of distal cervical ICA) x 100. Mild - <50% stenosis. Moderate - 50-69% stenosis. Severe - 70-94% stenosis. Near occlusion - 95-99% stenosis. Tell Occluded - 100% stenosis. IMPRESSION: No large vessel occlusion, aneurysm, dissection or significant arterial stenosis in the head or neck. Findings discussed by phone with Dr. Johnson at 4:50 PM 10/22/2024 ACT 112: N/A Electronically signed by Sangita Osman 10-22-2024 4:55 PM Neck CTA 10/22/24 16:19 EXAM: CT Head Without Intravenous Contrast INDICATION: Garbled speech and shortness of breath. Dizziness. TECHNIQUE: Axial computed tomography images of the head/brain without intravenous contrast. Sagittal and/or coronal reformats are provided. Sagittal and coronal reformatted images were created and reviewed. This CT exam was performed using one or more of the following dose reduction techniques: automated exposure control, adjustment of the mA and/or kV according to patient size, and/or use of iterative reconstruction technique. COMPARISON: 07/09/2024 FINDINGS: Limitations: None. 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 No acute infarct. No extra-axial fluid collection or hemorrhage. No significant white matter disease. Bones/joints: No acute changes. Soft tissues: No significant abnormality noted. Vasculature: No acute abnormality noted. Sinuses: No layering fluid in the visualized portions of the paranasal sinuses. Mastoid air cells: Stable chronic bilateral mastoid air cell sclerosis without effusion. Orbits: No significant abnormality noted. IMPRESSION: Stable chronic changes. No acute disease. Findings discussed by phone with Dr. Johnson at 4:50 PM 10/22/2024 ACT 112: N/A Electronically signed by Sangita Osman 10-22-2024 4:55 PM
[2024-10-23] MEDS: GADOBUTROL 65ML VIAL IV ONE (13:32)
--- NOTE | 2024-10-23 14:10 | Magnetic Resonance Report ---
MR brain wo/w con CLINICAL HISTORY: tia/cva COMPARISON STUDY: CT scan yesterday and MRI of 05/08/2024 FINDINGS: There is mild motion artifact. No restricted diffusion seen to suggest acute infarction. No mass effect, midline shift, or hydrocephalus. Stable small area of encephalomalacia at the parietal lobes bilaterally consistent with old infarctions. Stable severe chronic small vessel ischemic change s. Stable mild diffuse cerebral and cerebellar volume loss. There is fluid in a few mastoid air cells . No abnormal enhancement seen in the brain. IMPRESSION: No evidence of acute infarction. Otherwise as described. ACT 112: Negative or not required by law. Electronically signed by: Johnny Estevez M.D. 10/23/2024 2:09 PM
--- NOTE | 2024-10-23 14:19 | Pharmacy Report ---
- Date of Service October 23, 2024 - Pharmacy CVA/TIA Medication Review Patient may or may not have had a stroke this visit. However, does have a confirmed history of a previous stroke. Medications to Prevent Stroke handout has been added to the patients discharge packet. Antiplatelet(s) * Aspirin Cholesterol * High intensity statin: atorvastatin 40 mg daily DVT Prophylaxis * On apixaban Therapeutic Anticoagulation * No history of Afib/Aflutter noted, but is on apixaban (for recurrent DVT) Type 2 Diabetes * Patient has T2DM, but per Dr. Denson, a diabetes medication with proven CVD benefit will be deferred to their outpatient provider due to familiarity with risks/benefits of such therapies. "Medications to prevent stroke" handout has already been added to the patient's discharge packet, which instructs the patient to follow up with their outpatient provider to evaluate which diabetes medication with proven CVD benefit is best for them
[2024-10-23] MEDS: ACETAMINOPHEN 325 MG TAB PO PRN (14:37)
[2024-10-23] MEDS: DOCUSATE SODIUM 100 MG CAP PO SCH (20:19)
[2024-10-23] MEDS: PROPRANOLOL HCL 10 MG TAB PO SCH (20:20)
[2024-10-23 21:13] LABS: Potassium 4.3 mmol/L (3.5-5.1)
[2024-10-23 21:18] LABS: BUN Creatinine Ratio 15.3 (10-20); Creatinine Clr Calc Pharmacy 42.9 ml/min
[2024-10-23] MEDS: OPTIRAY 320 100ml IV ONE (23:04)
--- NOTE | 2024-10-24 01:43 | CT Scan Report ---
Exam(s): CT ABDOMEN + PELVIS With Contrast IV Amt: 93 ml optiray 320 EXAM: CT Abdomen and Pelvis With Intravenous Contrast CLINICAL HISTORY: Reason for exam: abdominal pain. recent diverticulitis. TECHNIQUE: Axial computed tomography images of the abdomen and pelvis with intravenous contrast. CTDI is Automated exposure control was utilized for the study. A dose lowering technique was utilized adhering to the principles of ALARA. CONTRAST: Patient received 93 ml optiray 320 of IV contrast COMPARISON: No relevant prior studies available. FINDINGS: Lung bases: Unremarkable. No mass. No consolidation. ABDOMEN: Liver: Unremarkable. No mass. Gallbladder and bile ducts: there are dependent intraluminal gallstones. No pericholecystic inflammatory changes are noted. No ductal dilation. Pancreas: Unremarkable. No mass. No ductal dilation. Spleen: Unremarkable. No splenomegaly. Adrenals: Unremarkable. No mass. Kidneys and ureters: There is symmetric renal atrophy. There is a 0.8 cm retained right upper pole renal calculus. There is a 0.8 cm calculus in the right renal pelvis. No renal mass or hydronephrosis. Stomach and bowel: There are several diverticula scattered throughout the colon most prominent in the descending and sigmoid colon. No evidence for active diverticulitis. No free air or abscess. No obstruction. PELVIS: Appendix: The appendix is not visualized. No pericecal inflammatory changes are seen. Bladder: Unremarkable. No mass. Reproductive: Unremarkable as visualized. ABDOMEN and PELVIS: Intraperitoneal space: See above. Bones/joints: No acute fracture. No dislocation. Soft tissues: Unremarkable. Vasculature: There is scattered aortoiliac atherosclerotic calcifications. No aneurysm. Lymph nodes: Unremarkable. No enlarged lymph nodes. Other findings: 22.55 mGy and DLP is 1130.23 mGy-cm. IMPRESSION: 1. There is symmetric renal atrophy. There is a 0.8 cm retained right upper pole renal calculus. There is a 0.8 cm calculus in the right renal pelvis. No renal mass or hydronephrosis. 2. There are several diverticula scattered throughout the colon most prominent in the descending and sigmoid colon. No evidence for active diverticulitis. No free air or abscess. 3. Cholelithiasis. Electronically signed by: Gui Pool MD 10/24/24 01:41 AM
[2024-10-24 06:47] LABS: Basophils # (auto) 0.05 K/uL (0.00-0.20); Basophils % (auto) 0.8 %; Eosinophils # (auto) 0.09 K/uL (0.00-0.50); Eosinophils % (auto) 1.4 %; Hematocrit (blood only) 31.7 % (42.0-52.0); Immature Granulocytes # (auto) 0.08 K/uL (0.01-0.20); Immature Granulocytes % (auto) 1.2 %; Lymphocytes # (auto) 1.54 K/uL (1.20-3.40); Lymphocytes % (auto) 23.4 %; Mean Corpuscular Hemoglobin 30.4 pg (25.0-34.0); Mean Corpuscular Hgb Conc 34.7 g/dL (32.0-36.0); Mean Corpuscular Volume 87.6 fL (80.0-100.0); Mean Platelet Volume 9.6 fL (9.4-12.4); Monocytes # (auto) 0.58 K/uL (0.11-0.59); Monocytes % (auto) 8.8 %; Neutrophils # (auto) 4.23 K/uL (1.40-6.50); Neutrophils % (auto) 64.4 %; Platelet Count 192 K/uL (130-400); RDW Coefficient of Variation 14.9 % (11.5-14.5); RDW Standard Deviation 47.4 fL (36.4-46.3); Red Blood Count 3.62 M/uL (4.70-6.10); White Blood Count 6.57 K/ul (4.8-10.8)
[2024-10-24 07:03] LABS: BUN Creatinine Ratio 17.4 (10-20); Calcium 8.3 mg/dl (8.6-10.3); Creatinine Clr Calc Pharmacy 55.7 ml/min; Magnesium 1.8 mg/dl (1.7-2.4); Phosphorus 4.6 mg/dl (2.5-4.9); Potassium 4.1 mmol/L (3.5-5.1)
[2024-10-24 08:20] VITALS: RESP 18; TEMP 97.7; O2SAT 97
[2024-10-24 09:01] VITALS: BP 123/95
[2024-10-24 09:33] VITALS: PULSE 71
--- NOTE | 2024-10-24 09:34 | Discharge Summary ---
Date of Service October 24, 2024 Admission HPI Per Admitting Provider 74-year-old male with past medical history significant for type 2 diabetes, hyperlipidemia, recurrent DVT, hypertension, BPH, history of kidney stone, CKD stage III, lumbar degenerative disease, chronic migraine, history of thrombocytopenia, depression, history of right frontal CVA in 2016, left parietal lobe CVA in 05/2021, right frontoparietal CVA in 04/2024 and admissions for toxic and metabolic encephalopathy in 04/2024 and gabapentin dose was reduced and duloxetine was stopped and patient was started on Zoloft and also patient was admitted that time for suicidal ideation to behavioral health unit comes today because of strokelike symptoms. Patient was started on Augmentin on 10/09/2024 for acute diverticulitis. Patient says he still has some abdominal pain and has diarrhea and had 1 episode diarrhea today. Patient went to PCP office today for follow-up. At PCPs office patient was having worsening aphasia mid conversation and felt dizzy. And was unable to follow directions for few minutes. He is blood sugars were okay and EKG showed sinus bradycardia with no acute ST changes. And patient was sent to the hospital. He was stroke alert. In the ER he was back to baseline. CT head, CTA head and neck are unremarkable. Currently resting comfortably. Hemodynamics are okay. Denies any headache. Patient says had blurred vision earlier but improved now. No headache. No runny nose. No sore throat. No cough. No difficulty swallowing. Denies chest pain. Says he gets on and off short of breath. No nausea, no abdominal pain. Had 1 episode of diarrhea today. No blood in the stools. Patient says difficult to initiate micturating but once starts micturating he does okay. No swelling in the legs. Afebrile. Lives with a friend. Says ambulates without support. But today was feeling little bit off balance. Past medical history. As mentioned above Past surgical history. Colonoscopy. Colonoscopy with biopsy. Extraoral incision and drainage floor of the mouth. Right ear tympanoplasty. Right septic knee I&D. Appendectomy. Surgical removal of erupted tooth. Ultrasound transrectal biopsy Social history. Former user of smokeless tobacco. No alcohol use. No drug use. Family history. Father had heart attack. Mother in childbirth. Admission Exam Per Admitting Provider General- Not in distress Head- atraumatic Eyes- PERRL. ENT- oropharynx clear Neck- supple, no JVD. Lungs- clear to auscultation no wheezing or crackles Heart- regular rate and rhythm; no murmur, no gallop. Abdomen- normal bowel sounds, soft, mild discomfort in lower abdomen, no distension. Extremities- no pretibial edema, no erythema seen Neuro- alert, oriented x 3; PERRL, no facial palsy; no dysarthria; motor 5/5 bilaterally; no pronator drift, co ordination of movements normal, sensations intact Skin- warm & dry Principal Diagnosis Stroke like symptoms Hyponatremia, hyperkalemia Recent diverticulitis Discharge Exam General- WD/WN M in NAD Head- atraumatic Eyes- PERRL. Neck- supple Lungs- clear to auscultation no wheezing or crackles Heart- regular rate and rhythm; no murmur Abdomen- normal bowel sounds, soft, mild discomfort in lower abdomen, no distension. Extremities- no pretibial edema, no erythema seen Neuro- alert, oriented x 3; PERRL, no facial palsy; no dysarthria; motor 5/5 bilaterally; moves extremities Skin- warm & dry Discharge Data Allergies Allergy/AdvReac Type Severity Reaction Status Date / Time No Known Allergies Allergy Verified 10/22/24 16:35 Consultations 10/22/24 19:09 ED Decision to Admit Stat 10/23/24 08:00 Consult Nephrology Routine Consult Neurology Routine Ordered Studies 10/22/24 16:19 CT angio head w con Stat IMPRESSION: No large vessel occlusion, aneurysm, dissection or significant arterial stenosis in the head or neck. CT angio neck with con Stat IMPRESSION: Stable chronic changes. No acute disease. CT head/brain wo con Stat IMPRESSION: No large vessel occlusion, aneurysm, dissection or significant arterial stenosis in the head or neck. 10/23/24 00:00 MR brain wo/w con Urgent FINDINGS: There is mild motion artifact. No restricted diffusion seen to suggest acute infarction. No mass effect, midline shift, or hydrocephalus. Stable small area of encephalomalacia at the parietal lobes bilaterally consistent with old infarctions. Stable severe chronic small vessel ischemic changes. Stable mild diffuse cerebral and cerebellar volume loss. There is fluid in a few mastoid air cells. No abnormal enhancement seen in the brain. IMPRESSION: No evidence of acute infarction. Otherwise as described. 10/23/24 21:57 CT Abd and Pelvis [CT abd pelvis IV con only] Urgent FINDINGS: Lung bases: Unremarkable. No mass. No consolidation. ABDOMEN: Liver: Unremarkable. No mass. Gallbladder and bile ducts: there are dependent intraluminal gallstones. No pericholecystic inflammatory changes are noted. No ductal dilation. Pancreas: Unremarkable. No mass. No ductal dilation. Spleen: Unremarkable. No splenomegaly. Adrenals: Unremarkable. No mass. Kidneys and ureters: There is symmetric renal atrophy. There is a 0.8 cm retained right upper pole renal calculus. There is a 0.8 cm calculus in the right renal pelvis. No renal mass or hydronephrosis. Stomach and bowel: There are several diverticula scattered throughout the colon most prominent in the descending and sigmoid colon. No evidence for active diverticulitis. No free air or abscess. No obstruction. PELVIS: Appendix: The appendix is not visualized. No pericecal inflammatory changes are seen. Bladder: Unremarkable. No mass. Reproductive: Unremarkable as visualized. ABDOMEN and PELVIS: Intraperitoneal space: See above. Bones/joints: No acute fracture. No dislocation. Soft tissues: Unremarkable. Vasculature: There is scattered aortoiliac atherosclerotic calcifications. No aneurysm. Lymph nodes: Unremarkable. No enlarged lymph nodes. Other findings: 22.55 mGy and DLP is 1130.23 mGy-cm. IMPRESSION: 1. There is symmetric renal atrophy. There is a 0.8 cm retained right upper pole renal calculus. There is a 0.8 cm calculus in the right renal pelvis. No renal mass or hydronephrosis. 2. There are several diverticula scattered throughout the colon most prominent in the descending and sigmoid colon. No evidence for active diverticulitis. No free air or abscess. 3. Cholelithiasis. Hospital Course (1) Stroke-like symptom: 74-year-old male with past medical history significant for type 2 diabetes, hyperlipidemia, recurrent DVT, hypertension, BPH, history of kidney stone, CKD stage III, lumbar degenerative disease, chronic migraine, history of thrombocytopenia, depression, history of right frontal CVA in 2016, left parietal lobe CVA in 05/2021, right frontoparietal CVA in 04/2024 and admissions for toxic and metabolic encephalopathy in 04/2024 and gabapentin dose was reduced and duloxetine was stopped and patient was started on Zoloft and also patient was admitted that time for suicidal ideation to behavioral health unit comes today because of strokelike symptoms. Patient was started on Augmen tin on 10/09/2024 for acute diverticulitis. Patient says he still has some abdominal pain and has diarrhea and had 1 episode diarrhea today. Patient went to PCP office today for follow-up. At PCPs office patient was having worsening aphasia mid conversation and felt dizzy. And was unable to follow directions for few minutes. He is blood sugars were okay and EKG showed sinus bradycardia with no acute ST changes. And patient was sent to the hospital. He was stroke alert. In the ER he was back to baseline. CT head, CTA head and neck are unremarkable. Currently resting comfortably. Hemodynamics are okay. Denies any headache. Patient says had blurred vision earlier but improved now. No headache. No runny nose. No sore throat. No cough. No difficulty swallowing. Denies chest pain. Says he gets on and off short of breath. No nausea, no abdominal pain. Had 1 episode of diarrhea today. No blood in the stools. Patient says difficult to initiate micturating but once starts micturating he does okay. No swelling in the legs. Afebrile. Lives with a friend. Says ambulates without support. But today was feeling little bit off balance. Strokelike symptoms Brief episode of difficulty speaking History of multiple CVAs in the past and last was in 04/[address] head, CTA head and neck unremarkable Currently patient is back to baseline [facility] recommended MRI brain Will do full stroke workup with MRI brain, echo Echo - mild concentric LVH. LV syst. function is normal. LV EF 55-60%. LV wall motion is normal. RV is normal in size and function. Aortic valve sclerosis moderate, w/o significant aortic valvular stenosis. Per previous studies - no interatrial shunt. Neurochecks every 2 hours PT OT Continue home aspirin and Eliquis and statin Previous admissions aspirin was stopped because of thrombocytopenia but was restarted as outpatient as platelets improved MRI brain - No evidence of acute infarction. Otherwise as described. Neurology consulted - Stroke-like symptom: Neo Solis is a 74 yo M presenting with transient dysfluency, now resolved. He is on maximal medical therapy with appropriate anticoagulation. 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 Suspect transient recrudesence likely secondary to hyponatremia. -- No further neurologic worklup, patient can remain on his prior risk factor reduction regimen Hypertension Currently on propranolol Last admission losartan was started but was stopped as outpatient along with Flomax as he was having orthostatic hypotension Will monitor Hyperkalemia and hyponatremia K5.9 and sodium 130 received dose of Lokelma and calcium gluconate Gentle fluids Low potassium diet Na now 136 and K4.4 Nephrology consulted for further recommendations - pt's electrolytes normalized after hydration - hypovolemic hyponatremia, no further work-up needed Obstructive sleep apnea Started on CPAP about a month ago as per patient Diabetes Hold metformin Insulin sliding scale Will monitor Current HbA1c 6.7% BPH Continue Proscar History of recurrent DVT On Eliquis Hyperlipidemia On statin CKD stage III Presented creatinine 1.3 Will follow the labs Recent diverticulitis Was treated with Augmentin for 10 days starting 10/09/2024 Still some abdominal discomfort repeated CT scan - no acute diverticulitis, no abscess recommend low fiber diet for next few weeks, stay hydrated follow up as outpt Depression On Zoloft Chronic anemia Hemoglobin 11-12 -around baseline cont. to monitor as outpt Migraines Monitor propranolol Total Time Total Time Spent Total Time Spent (In Minutes): 40 Discharge Plan Discharge Items Patient Disposition: Home - Self-Care Reason For Visit: STROKE LIKE SYMPTOMS Discharge Diagnosis: Stroke like symptoms Hyponatremia, hyperkalemia Recent diverticulitis. Activity: Per Instructions section Non-emergency contact: Primary Care Provider and Neurologist Call non-emergency contact if: you have any medication questions and your symptoms worsen Follow-up/Referrals: Keo Patrick DO [Primary Care Provider] - (Date & Time 10/30/2024 11:20 AM Provider: Keo Patrick DO [facility] [address], [place] ) Diet: Carb Consistent or DM2 and Low Fiber Addtl Attending Provider Instructions: Follow up with your primary care doctor within 1-2 weeks. The appointment was scheduled for you for 10/30/2024. Follow up with neurology as needed. Make sure to stay well hydrated. Recommend low fiber diet for next few weeks, then advance diet as tolerated. Pending Studies at Discharge: No Stand-Alone Forms: My [employer], Smoking Cessation, Medications to Prevent Stroke Medications and DC Order Prescriptions: Continued Eliquis 5 mg Tablet 5 mg PO BID 30 Days Qty: 60 3RF metformin 1,000 mg tablet 500 mg PO BIDM atorvastatin [Lipitor] 40 mg tablet 40 mg PO QAM aspirin 81 mg Tablet,Delayed Release (Dr/Ec) 81 mg PO DAILY acetaminophen [Tylenol Extra Strength] 500 mg Tablet 500 mg PO TID PRN (Reason: Pain) gabapentin 300 mg Capsule 300 mg PO BID Rx Instructions: ORDERED 10/22/24, NOT STARTED YET finasteride 5 mg tablet 5 mg PO QAM docusate sodium [Stool Softener] 100 mg Capsule 100 mg PO [id number] Rx Instructions: SUN, TUES, THUR, & SAT. @ HS propranolol 10 mg Tablet 5 mg PO BID Qty: 15 0RF Rx Instructions: PER [facility]--10 MG TAB--TAKE 5 MG BID. PER PT'S MED LIST---2.5 MG BID. sertraline 50 mg Tablet 50 mg PO QAM 30 Days Qty: 30 0RF Discharge Orders: Discharge Order (Routine); Ordered 10/24/24 Ordered By: Uche Alfredo/Other Patient Handouts: High Blood Sugar (Hyperglycemia), Hypoglycemia (Low Blood Sugar), Managing Type 2 Diabetes, Diabetes: Meal Planning Admission Data Admit Date/Time: 10/22/24 20:07 Attending Provider: Uche Denson Admit Provider: Andrew Rodriguez Primary Care Provider: Keo Patrick Other Providers: Andrew Rodriguez; Stacey Velasquez; Tricia Figueroa; Patricio Contreras; Tricia Darnell; Johnny Mullen; Per Lunsford; Todd Zaidi; Ariel Smith; Nikki Santillan; Patrice Calzada; Gilson Ford; Juarez Dumont; Keo Duran; Rosalia Oglesby; Liudmila Witt; Ariel Zepeda; Erna Burkett
[2024-10-24] MEDS: STROKE PATIENT DISCHARGE STA (11:30)
--- NOTE | 2024-10-24 14:18 | Electrocardiogram Report ---
Test Reason : Blood Pressure : */* mmHG Vent. Rate : 55 BPM Atrial Rate : 55 BPM P-R Int : 160 ms QRS Dur : 80 ms QT Int : 448 ms P-R-T Axes : 67 -21 34 degrees QTcB Int : 428 ms Sinus bradycardia Low voltage QRS Borderline ECG When compared with ECG of 23-Oct-2024 06:22, No significant change was found Confirmed by Aidan Powell ([id number]) on 10/24/2024 2:18:08 PM Referred By: Keo Patrick Confirmed By: Aidan Powell
== END 2024-10-24 12:36 | disposition home or self-care (01) | DRG 641 ==
LOC: ED 16:11 → 2E 20:07

== ENCOUNTER 2025-01-20 22:36 | Inpatient (IN) ==
[2025-01-20] MEDS: ONDANSETRON INJ 2 MG/ML 2 ML VIAL IV STA (23:05)
[2025-01-20] MEDS: ACETAMINOPHEN 1,000 MG/100 ML VIAL IV STA (23:05)
[2025-01-20] MEDS: SODIUM CHLORIDE 0.9% 1,000 ML IV STA (23:05)
--- NOTE | 2025-01-20 23:09 | Emergency Department Note ---
History of Present Illness General Chief complaint: Abdominal Pain Stated complaint: LOWER ABD PAIN Time Seen by Provider: 01/20/25 22:53 History of Present Illness Maximum Pain Intensity: 5 74-year-old male who had a CVA in the past presents ER for lower abdominal pain and back pain. Patient denies chest pain, dyspnea, fevers, vomiting, diarrhea, urinary symptoms, testicular pain, penile pain. He has had kidney stones and diverticulitis in the past. Home Medications Medication Instructions Recorded Confirmed Type metformin 1,000 mg tablet 1,000 mg PO BIDM 02/12/21 01/20/25 History atorvastatin 40 mg tablet (Lipitor) 40 mg PO QAM 03/29/21 01/20/25 History finasteride 5 mg tablet 5 mg PO QAM 05/08/24 01/20/25 History docusate sodium 100 mg capsule 100 mg PO 4XWK 05/15/24 01/20/25 History (Stool Softener) sertraline 50 mg tablet 50 mg PO QAM 30 days #30 tabs 05/30/24 01/20/25 Rx acetaminophen 500 mg tablet 500 mg PO TID PRN Pain 10/22/24 01/20/25 History (Tylenol Extra Strength) aspirin 81 mg tablet,delayed 81 mg PO QAM 10/22/24 01/20/25 History release gabapentin 300 mg capsule 300 mg PO BID 10/22/24 01/20/25 History apixaban 5 mg tablet (Eliquis) 5 mg PO AMHS 01/20/25 01/20/25 History ondansetron HCl 4 mg tablet 4 mg PO Q6 PRN Nausea 01/20/25 01/20/25 History propranolol 10 mg tablet 5 mg PO AMHS 01/20/25 01/20/25 History Allergies Allergy/AdvReac Type Severity Reaction Status Date / Time No Known Allergies Allergy Verified 01/20/25 23:22 Past Med/Surg History Problem List Ureterolithiasis (Acute) Renal colic on right side (Acute) MAGY (acute kidney injury) (Acute) Kidney stones Hyperkalemia Hyponatremia Stroke-like symptom Brain TIA (Acute) Word finding difficulty (Acute) Depression with suicidal ideation Cephalgia penitentiary (current) use of 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/antiplatelets (Acute) History of stroke (Acute) Migraine Acute dehydration (Acute) Weakness (Acute) Frequent headaches Acute alteration in mental status (Acute) Stroke-like symptom (Acute) Lethargy Stroke-like symptoms Brain TIA (Acute) Type 2 diabetes mellitus Osteoarthritis Benign localized prostatic hyperplasia with lower urinary tract symptoms (LUTS) History of stroke History of DVT (deep vein thrombosis) (Chronic) Diabetes mellitus, type 2 (Chronic) NIDDM BPH (benign prostatic hypertrophy) (Chronic) Dyslipidemia (Chronic) Medical History Knee pain, right MAGY (acute kidney injury) Weakness MAGY (acute kidney injury) Elevated troponin Anemia Kidney stones Stroke 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 ischemic stroke, residual mild weakness and short- term memory impairment Pulmonary embolism 1993- Hydronephrosis with urinary obstruction due to ureteral calculus Hypertension Surgical History History of back surgery No hardware History of cystoscopy Cystoscopy, left retropyelogram, Left ureteral stent placement (03/30/21): LMA#4 at [facility] H/O colonoscopy History of tympanoplasty of right ear Status post appendectomy Family History Uncle Family history of diabetes mellitus Other Heart disease Social History Smoking Status: Former smoker Tobacco Type: Declines Second Hand Exposure: No; Do You Dip or Chew Tobacco: No; Tobacco Cessation Education Requested by Patient: No Hx Alcohol Use: No Hx Substance Use: No Preferred Language: Tamazight Communication Ability: Effective Heat Transfer Technician Required: No Beliefs That Will Affect Care: None marital status: / Current Living Situation: Other Current Living Situation Comment: friends current occupation: NOT WORKING How many Children do You have: 0 Other Information That Helps Us Care for You: No Feels Safe at Home: Yes Safety Concerns: Feels Safe At This Time Gender Identity: Transgender Male Assistive Devices: Denture - Upper and Denture - Lower Review of Systems A total of 10 systems reviewed and were otherwise negative Physical Exam Vital Signs Vital Signs - 24 hr 01/20/25 22:45 01/20/25 22:59 01/20/25 23:00 Temperature 36.5 C Temperature Source Temporal Artery Scan Pulse Rate 91 H 84 72 Pulse Rhythm Regular Respiratory Rate 22 18 Blood Pressure 125/87 Blood Pressure Mean 99 Pulse Oximetry 96 94 Oxygen Delivery Method Room Air Room Air Oxygen Flow Rate 0 Sepsis Recent Fever Within 48 Hours No Sepsis New/Unexplained Change in Mental Status No Sepsis Action Taken by Nursing No Action Required 01/21/25 00:00 01/21/25 00:30 Temperature Temperature Source Pulse Rate 75 73 Pulse Rhythm Respiratory Rate 18 18 Blood Pressure 146/88 H 154/92 H Blood Pressure Mean 116 116 Pulse Oximetry 93 94 Oxygen Delivery Method Oxygen Flow Rate Sepsis Recent Fever Within 48 Hours Sepsis New/Unexplained Change in Mental Status Sepsis Action Taken by Nursing VITALS: Vitals are noted on the nurse's note and reviewed by myself. Vital signs stable. GENERAL: Pleasant patient, in no acute distress, nondiaphoretic, well-developed well-nourished. SKIN: Capillary reflex less than 2 seconds. HEENT: Normocephalic. PERRLA. EOMI. Nares patent. Mucous membranes moist. Neck is supple without nuchal rigidity. HEART: Regular rate and rhythm LUNGS: Clear to auscultation bilaterally without wheezes, rales or rhonchi. No retractions or accessory muscle use. ABDOMEN: Positive bowel sounds x 4. Normal tympanic percussion. Soft, tender to palpation lower abdomen, without masses or organomegaly. Rae sign negative. No guarding or rebound tenderness. no CVA tenderness MUSCULOSKELETAL: No gross musculoskeletal defects. NEURO: Patient was alert and oriented to person place and time. No focal neurological deficits. Course Administered Medications Discontinued Medications Sodium Chloride (Nss) 1,000 mls @ 999 mls/hr IV .Q1H1M STA Stop: 01/21/25 00:00 Last Infusion: 01/20/25 23:59 Dose: Infused Documented By: Admin: 01/20/25 23:05 Dose: 999 mls/hr Documented By: SHERI Acetaminophen (Ofirmev) 1,000 mg in 100 mls @ 400 mls/hr IV NOW STA Stop: 01/20/25 23:14 Last Infusion: 01/21/25 02:17 Dose: Infused Documented By: Admin: 01/20/25 23:05 Dose: 400 mls/hr Documented By: SHERI Lactated Ringer's (Lr) 1,000 mls @ 999 mls/hr IV .Q1H1M ONE Stop: 01/21/25 00:47 Last Infusion: 01/21/25 02:18 Dose: Infused Documented By: Admin: 01/21/25 00:05 Dose: 999 mls/hr Documented By: SHERI Ondansetron HCl (Ondansetron Inj 2 Mg/Ml 2 Ml Vial) 4 mg IV NOW STA Stop: 01/20/25 23:01 Last Admin: 01/20/25 23:05 Dose: 4 mg Documented By: SHERI Tamsulosin HCl (Tamsulosin Hcl 0.4 Mg Cap) 0.4 mg PO NOW STA Stop: 01/21/25 00:32 Last Admin: 01/21/25 00:49 Dose: 0.4 mg Documented By: SHERI Medical Decision Making Medical Records Attestation: I reviewed the patient's medical records. Home Medications Current Medication List: was personally reviewed by me Laboratory Data Attestation: I reviewed the patient's lab results. 01/20/25 23:00 01/20/25 23:00 Lab Results 01/20/25 01/20/25 Range/Units 23:00 23:10 WBC 14.48 H (4.8-10.8) K/ul RBC 4.16 L (4.70-6.10) M/uL Hgb 11.8 L (14.0-18.0) g/dl POC Hgb 11.2 L (14.0-18.0) g/dl Hct 36.2 L (42.0-52.0) % POC Hct 33 L (42-52) % MCV 87.0 (80.0-100.0) fL MCH 28.4 (25.0-34.0) pg MCHC 32.6 (32.0-36.0) g/dL RDW Std Deviation 47.8 H (36.4-46.3) fL RDW Coeff of Aranza 15.1 H (11.5-14.5) % Plt Count 188 (130-400) K/uL MPV 10.3 (9.4-12.4) fL Immature Gran % (Auto) 0.5 % Neut % (Auto) 84.1 % Lymph % (Auto) 5.8 % [place] % (Auto) 9.1 % Eos % (Auto) 0.2 % Baso % (Auto) 0.3 % Neut # (Auto) 12.17 H (1.40-6.50) K/uL Lymph # (Auto) 0.84 L (1.20-3.40) K/uL [place] # (Auto) 1.32 H (0.11-0.59) K/uL Eos # (Auto) 0.03 (0.00-0.50) K/uL Baso # (Auto) 0.05 (0.00-0.20) K/uL Immature Gran # (Auto) 0.07 (0.01-0.20) K/uL POC Sodium 134 L (135-144) mmol/L Sodium 132 L (136-145) mmol/L POC Potassium 5.0 (3.3-5.0) mmol/L Potassium 4.8 (3.5-5.1) mmol/L POC Chloride 103 (101-112) mmol/L Chloride 100 (98-107) mmol/L Carbon Dioxide 24 (21-32) mmol/L POC Total CO2 21 L (24-31) mmol/L Anion Gap 8 (3-11) POC Anion Gap 15.0 L (16-25) mmol/L POC BUN 43 H (7-18) mg/dl BUN 42 H (6-23) mg/dl Creatinine 2.33 H (0.6-1.4) mg/dl POC Creatinine 2.4 H (0.6-1.3) mg/dl Est Cr Clr Drug Dosing 28.0 ml/min eGFR 28.27 BUN/Creatinine Ratio 18.0 (10-20) Glucose 254 H (70-99(Fasting)) mg/dl POC Glucose (other) 255 H (70-99) mg/dl Calcium 9.4 (8.6-10.3) mg/dl POC Ioniz Calcium Julisa 1.19 (1.12-1.32) mmol/l Total Bilirubin 0.7 (0.2-1.0) mg/dl AST 17 (13-39) U/L ALT 16 (7-52) U/L Alkaline Phosphatase 82 (34-104) U/L Total Creatine Kinase 44 (30-223) U/L Total Protein 7.5 (6.0-8.3) gm/dl Albumin 4.0 (3.4-5.0) gm/dl Globulin 3.5 (2.5-4.0) gm/dl Albumin/Globulin Ratio 1.1 (0.9-2) Lipase 39 (11-82) U/L Imaging Data Attestation: I personally reviewed and interpreted this imaging study as follows: Radiologist's Impression: Abdomen/Pelvis CT 01/20/25 23:14 CT of the abdomen pelvis without contrast Technique: Noncontrast axial images of the abdomen pelvis. Coronal and sagittal reformatted images made available for review Comparison made to prior exam dated October 23, 2024 Findings: Coronary artery calcifications. Lung bases are clear. Trace pericardial effusion. Right sided hydroureteronephrosis secondary to a 1 cm proximal right ureteral calculi just beyond the UPJ. Nonobstructing right intrarenal calculus. No left-sided hydroureteronephrosis. No left renal, ureteral, or bladder calculi. Cholelithiasis without evidence of acute cholecystitis. Remaining limited noncontrast CT evaluation of the remaining solid abdominal organs demonstrates no gross abnormality. No free air or intestinal obstruction. Diverticulosis without evidence of diverticulitis. Urinary bladder is unremarkable. Bone windows demonstrate no focal abnormality Impression Right-sided hydroureteronephrosis secondary to 1 cm proximal right ureteral calculus just beyond the right UPJ. Electronically signed by Sang Alonzo 01-20-2025 11:48 PM [facility] Narrative Prior records/ancillary studies reviewed. Triage Nursing notes reviewed. Additional history obtained from family. The patient's history was concerning for abdominal pain. Differential diagnosis: Etiologies such as appendicitis, diverticulitis, PUD, biliary pathology, UTI, pancreatitis, obstruction, mesenteric ischemia, aortic pathology, infections, inflammatory bowel disease, renal colic, as well as others were entertained. Physical examination findings: As above. ER treatment provided: An order was placed for continuous cardiac monitoring. The monitor shows a rate of 60-100 with a sinus rhythm per my Independent interpretation. Tylenol Zofran and IV fluids were ordered On reassessment the patient felt better. Diagnostics interpreted by me: The labs Independently Interpreted by myself revealed elevated creatinine. Stable H&H Leukocytosis Negative urine Imaging studies: Imaging was reviewed and read by radiology Consultation: A consultation was placed with the hospitalist. The case was discussed and diagnostics were reviewed. The patient was evaluated in the ER for further treatment. Consultation was placed with urology and the case was discussed. The midlevel did evaluate the patient. Exam and history seem consistent with acute kidney injury with right sided ureterolithiasis with hydronephrosis. Patient was given 2 L of fluids. Medicine and urology were consulted. Patient was admitted to the medical service. Urinalysis was still pending at time of admission. By the evaluation outlined above emergent etiologies such as appendicitis, diverticulitis, PUD, biliary pathology, UTI, pancreatitis, obstruction, mesenteric ischemia, aortic pathology, infections, inflammatory bowel disease, as well as others were deemed relatively unlikely. The pt informed about the findings as listed above. All questions were answered and pleased with the treatment. The chart was completed utilizing too.me Speech voice recognition software. Grammatical errors, random word insertions, pronoun errors, and incomplete sentences are an occassional consequence of this system due to software limitations, ambient noise, and hardware issues. Any formal questions or concerns about the content, text, or information contained within the body of this dictation should be directly addressed to the physician studio assistant for clarification. Impression & Plan MAGY (acute kidney injury), Renal colic on right side, Ureterolithiasis Discharge Plan Visit Data Chief Complaint: Abdominal Pain Stated Complaint: LOWER ABD PAIN ED Provider: Kiet Kaufman ED Midlevel Provider: Maci Valentine Discharge Problem: MAGY (acute kidney injury), Renal colic on right side, Ureterolithiasis Patient Disposition: Admitted As Inpatient Condition: Good Discharge Instructions Interventions: ED Discharge Assessment Last Done: 01/21/25 01:43
[2025-01-20 23:28] LABS: Hematocrit (blood only) 36.2 % (42.0-52.0); Hemoglobin 11.8 g/dl (14.0-18.0); Immature Granulocytes # (auto) 0.07 K/uL (0.01-0.20); Immature Granulocytes % (auto) 0.5 %; Mean Corpuscular Hemoglobin 28.4 pg (25.0-34.0); Mean Corpuscular Volume 87.0 fL (80.0-100.0); Platelet Count 188 K/uL (130-400); RDW Standard Deviation 47.8 fL (36.4-46.3); Red Blood Count 4.16 M/uL (4.70-6.10); White Blood Count 14.48 K/ul (4.8-10.8)
[2025-01-20 23:46] LABS: Alanine Aminotransferase 16.0 U/L (7-52); Albumin Globulin Ratio 1.1 (0.9-2); Alkaline Phosphatase 82.0 U/L (34-104); Anion Gap 8.0 (3-11); Bilirubin,Total 0.7 mg/dl (0.2-1.0); Blood Urea Nitrogen 42.0 mg/dl (6-23); Calcium 9.4 mg/dl (8.6-10.3); Carbon Dioxide 24.0 mmol/L (21-32); Chloride 100.0 mmol/L (98-107); Creatinine Clr Calc Pharmacy 28.0 ml/min; Globulin 3.5 gm/dl (2.5-4.0); Glucose 254.0 mg/dl (70-99(Fasting)); Lipase 39.0 U/L (11-82); Potassium 4.8 mmol/L (3.5-5.1); Sodium 132.0 mmol/L (136-145); Total Protein 7.5 gm/dl (6.0-8.3)
--- NOTE | 2025-01-20 23:48 | CT Scan Report ---
CT of the abdomen pelvis without contrast Technique: Noncontrast axial images of the abdomen pelvis. Coronal and sagittal reformatted images made available for review Comparison made to prior exam dated October 23, 2024 Findings: Coronary artery calcifications. Lung bases are clear. Trace pericardial effusion. Right sided hydroureteronephrosis secondary to a 1 cm proximal right ureteral calculi just beyond the UPJ. Nonobstructing right intrarenal calculus. No left-sided hydroureteronephrosis. No left renal, ureteral, or bladder calculi. Cholelithiasis without evidence of acute cholecystitis. Remaining limited noncontrast CT evaluation of the remaining solid abdominal organs demonstrates no gross abnormality. No free air or intestinal obstruction. Diverticulosis without evidence of diverticulitis. Urinary bladder is unremarkable. Bone windows demonstrate no focal abnormality Impression Right-sided hydroureteronephrosis secondary to 1 cm proximal right ureteral calculus just beyond the right UPJ. Electronically signed by Sang Alonzo 01-20-2025 11:48 PM
[2025-01-21] LABS: Creatine Kinase 44.0 U/L (30-223)
[2025-01-21] MEDS: LACTATED RINGER'S 1,000 ML IV ONE (00:05)
--- NOTE | 2025-01-21 00:34 | Urology Consultation ---
Date of Consultation January 21, 2025 Assessment & Plan (1) Kidney stones: I discussed with the treating clinician in the emergency department the patient is being admitted on the hospitalist service. From a urologic perspective we recommend the following: Provide analgesics Provide antiemetics Provide IV fluid for hydration Consider adding Flomax for expulsive therapy Recommend making n.p.o. for the present time Await results of urinalysis and initiate antibiotics if clinically indicated ( as noted the patient denies any dysuria) Patient is noted to have acute kidney injury therefore serial labs to follow nephrotoxins should be avoided At the present time the patient is normotensive without fever or tachycardia and is nontoxic-appearing. Will attempt conservative measures as outlined above and the patient be reevaluated the morning of 01/21/2025 and a determination will be made if cystoscopic intervention will be required which may be likely given the size of patient's stone Additional recommendations to be forthcoming based on his clinical course as it unfolds History of Present Illness Reason for Consultation: Nephrolithiasis History of Present Illness Is a 74-year-old male who presented to the emergency department secondary to back pain that began within the past 24 hours. He says that the pain is in his lower back but appears to be somewhat greater on the right. He denies any fevers, shakes, or chills. He denies a nausea or vomiting. Patient says that he is urinating without difficulty specifically denying any dysuria or hematuria. Patient has had kidney stones in the past and he has required cystoscopy with ureteral stent placement most recently in 2020. Since arrival to hospital patient has had labs and imaging which I independent review. A CBC revealed white blood cell count was elevated 14.4. Hemoglobin and hematocrit were 11.8 and 36.2. Platelet count was normal. Chemistry profile showed sodium was 132 with a normal potassium. BUN and creatinine were 42 and 2.3 (creatinine usually runs within normal range). A urinalysis has been ordered and is pending. A CT scan of the abdomen and pelvis showed the patient had right-sided hydronephrosis secondary to a 1 cm proximal right ureteral kidney stone which is located just beyond the ureteropelvic junction. There is no left-sided hydronephrosis. At the time of my interview he was resting comfortably in bed and he was in no distress. Allergies Allergy/AdvReac Type Severity Reaction Status Date / Time No Known Allergies Allergy Verified 01/20/25 23:22 Home Medications Medication Instructions Recorded Confirmed Type metformin 1,000 mg tablet 1,000 mg PO BIDM 02/12/21 01/20/25 History atorvastatin 40 mg tablet (Lipitor) 40 mg PO QAM 03/29/21 01/20/25 History finasteride 5 mg tablet 5 mg PO QAM 05/08/24 01/20/25 History docusate sodium 100 mg capsule 100 mg PO [id number] 05/15/24 01/20/25 History (Stool Softener) sertraline 50 mg tablet 50 mg PO QAM 30 days #30 tabs 05/30/24 01/20/25 Rx acetaminophen 500 mg tablet 500 mg PO TID PRN Pain 10/22/24 01/20/25 History (Tylenol Extra Strength) aspirin 81 mg tablet,delayed 81 mg PO QAM 10/22/24 01/20/25 History release gabapentin 300 mg capsule 300 mg PO BID 10/22/24 01/20/25 History apixaban 5 mg tablet (Eliquis) 5 mg PO AMHS 01/20/25 01/20/25 History ondansetron HCl 4 mg tablet 4 mg PO Q6 PRN Nausea 01/20/25 01/20/25 History propranolol 10 mg tablet 5 mg PO AMHS 01/20/25 01/20/25 History Patient History Medical History Knee pain, right MAGY (acute kidney injury) Weakness MAGY (acute kidney injury) Elevated troponin Anemia Kidney stones Stroke 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 ischemic stroke, residual mild weakness and short- term memory impairment Pulmonary embolism 1993- Eliquis Hydronephrosis with urinary obstruction due to ureteral calculus Hypertension Surgical History History of back surgery No hardware History of cystoscopy Cystoscopy, left retropyelogram, Left ureteral stent placement (03/30/21): LMA#4 at [facility] H/O colonoscopy History of tympanoplasty of right ear Status post appendectomy Family History Uncle Family history of diabetes mellitus Other Heart disease Social History Smoking Status: Former smoker Tobacco Type: Declines Second Hand Exposure: No; Do You Dip or Chew Tobacco: No; Hx Alcohol Use: No Hx Substance Use: No Preferred Language: Azeri Communication Ability: Effective Hoistman Required: No Beliefs That Will Affect Care: None marital status: / Current Living Situation: Other Current Living Situation Comment: lives with [employer] current occupation: NOT WORKING How many Children do You have: 0 Feels Safe at Home: Yes Gender Identity: Transgender Male Assistive Devices: Walker Review of Systems Review of Systems: All systems reviewed & are unremarkable except as noted in HPI & below Physical Exam Constitutional: WD/WN, vitals as above Eyes: no conjunctival abnormality ENMT: Ears: no hearing impairment and no external ear abnormality Neck: trachea midline Respiratory: normal respiratory effort; no respiratory distress and no labored breathing Cardiovascular: Rate/Rhythm: regular rate and regular rhythm Gastrointestinal (Abdomen): Soft without distention or rigidity. There is no rebound tenderness, guarding, or pain with palpation Musculoskeletal: No calf tenderness Skin: no rashes Neurologic: moves all extremities Psychiatric: A+Ox3, euthymic affect Genitourinary: No CVA tenderness with percussion at the time of my exam Results & Data Vital Signs (Past 12 Hours) Vital Signs Temp Pulse Resp BP Pulse Ox O2 Del Method O2 Flow Rate 01/20/25 23:00 72 18 94 Room Air 0 01/20/25 22:59 84 01/20/25 22:45 36.5 C 91 H 22 125/87 96 Room Air PG Care Time/CCT Total # of Minutes Spent Total Time Spent with Patient: Total time spent is greater than 50% in coordination of care (as documented) at patient's floor/unit and/or counseling patient: Coding Level of Care Code 08486 INT INP/OBS CARE 3/75MIN Diagnoses Kidney stones N20.0
--- NOTE | 2025-01-21 00:36 | History & Physical Report ---
Date of Service January 21, 2025 Assessment & Plan (1) Kidney stones: Plan: Assessment and plan below following discussion of case with ED provider and reviewing patient history/pertinent normal/abnormal diagnostic test results. Obstructive uropathy Recurrent kidney stone, history of BPH ARF on CKD secondary to above hypertension, elevated secondary to discomfort hyperlipidemia, on statin Rx hx CVA recurrent DVT on Eliquis DM 2 on oral medications, well-controlled as of recent hemoglobin A1c of 6.7 from October 2024 chronic anemia, hemoglobin at baseline (baseline hemoglobin 11) past tobacco abuse Admit to MedSur Flomax trial Strain urine Urology consult re: obstructive uropathy N.p.o. in anticipation of procedure Baseline UA, monitor creatinine response to IVF Add amlodipine to BP regimen ISS BG goal 110-140 DVT prophylaxis. Eliquis Full code Text document was generated using [email or web address] voice recognition software. It may contain grammatical or spelling errors. Kindly contact undersigned for clarification of any documentation item in question. History of Present Illness Chief Complaint: Abdominal/flank pain Primary Care Provider: Keo Patrick DO History obtained from patient and records. Medical history significant for hypertension, hyperlipidemia, CVA, recurrent DVT on Eliquis, JACOB on CPAP, DM 2 on oral medications, CRI (baseline creatinine 1.3), chronic anemia (baseline hemoglobin 11), BPH, urolithiasis, past tobacco abuse. Last confinement September 2024 for strokelike symptoms presenting as aphasia. Yesterday, patient had achy abdominal and low back pain more on the right somewhat reminiscent of kidney stone pain. No gross hematuria. No headache, no chest pain, no SOB. 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 Allergies Allergy/AdvReac Type Severity Reaction Status Date / Time No Known Allergies Allergy Verified 01/20/25 23:22 Home Medications Medication Instructions Recorded Confirmed Type metformin 1,000 mg tablet 1,000 mg PO BIDM 02/12/21 01/20/25 History atorvastatin 40 mg tablet (Lipitor) 40 mg PO QAM 03/29/21 01/20/25 History finasteride 5 mg tablet 5 mg PO QAM 05/08/24 01/20/25 History docusate sodium 100 mg capsule 100 mg PO 4XWK 05/15/24 01/20/25 History (Stool Softener) sertraline 50 mg tablet 50 mg PO QAM 30 days #30 tabs 05/30/24 01/20/25 Rx acetaminophen 500 mg tablet 500 mg PO TID PRN Pain 10/22/24 01/20/25 History (Tylenol Extra Strength) aspirin 81 mg tablet,delayed 81 mg PO QAM 10/22/24 01/20/25 History release gabapentin 300 mg capsule 300 mg PO BID 10/22/24 01/20/25 History apixaban 5 mg tablet (Eliquis) 5 mg PO AMHS 01/20/25 01/20/25 History ondansetron HCl 4 mg tablet 4 mg PO Q6 PRN Nausea 01/20/25 01/20/25 History propranolol 10 mg tablet 5 mg PO AMHS 01/20/25 01/20/25 History Past Med/Surg History Problem List Ureterolithiasis (Acute) Renal colic on right side (Acute) MAGY (acute kidney injury) (Acute) Kidney stones Hyperkalemia Hyponatremia Stroke-like symptom Brain TIA (Acute) Word finding difficulty (Acute) Depression with suicidal ideation 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/antiplatelets (Acute) History of stroke (Acute) Migraine Acute dehydration (Acute) Weakness (Acute) Frequent headaches Acute alteration in mental status (Acute) Stroke-like symptom (Acute) Lethargy Stroke-like symptoms Brain TIA (Acute) Type 2 diabetes mellitus Osteoarthritis Benign localized prostatic hyperplasia with lower urinary tract symptoms (LUTS) History of stroke History of DVT (deep vein thrombosis) (Chronic) 1993- Diabetes mellitus, type 2 (Chronic) NIDDM BPH (benign prostatic hypertrophy) (Chronic) Dyslipidemia (Chronic) Medical History Knee pain, right MAGY (acute kidney injury) Weakness MAGY (acute kidney injury) Elevated troponin Anemia Kidney stones Stroke 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 ischemic stroke, residual mild weakness and short- term memory impairment Pulmonary embolism 1993- Hydronephrosis with urinary obstruction due to ureteral calculus Hypertension Surgical History History of back surgery No hardware History of cystoscopy Cystoscopy, left retropyelogram, Left ureteral stent placement (03/30/21): LMA#4 at [facility] H/O colonoscopy History of tympanoplasty of right ear Status post appendectomy Family History Uncle Family history of diabetes mellitus Other Heart disease Social History Smoking Status: Former smoker Tobacco Type: Declines Second Hand Exposure: No; Do You Dip or Chew Tobacco: No; Tobacco Cessation Education Requested by Patient: No Hx Alcohol Use: No Hx Substance Use: No Preferred Language: Ecuadorean Communication Ability: Effective Train Director Required: No Beliefs That Will Affect Care: None marital status: / Current Living Situation: Other Current Living Situation Comment: friends current occupation: NOT WORKING How many Children do You have: 0 Other Information That Helps Us Care for You: No Feels Safe at Home: Yes Safety Concerns: Feels Safe At This Time Gender Identity: Transgender Male Assistive Devices: Denture - Upper and Denture - Lower Review of Systems Review of Systems: As per HPI, all other systems reviewed and negative Physical Exam Physical Exam: GENERAL: Comfortable, pleasant, no respiratory distress SKIN: Sunburn RUE, pallor, warm HEENT: Pale palpebral conjunctivae, no ptosis, dry buccal mucosa NECK : Supple, no tenderness CHEST : CTA, no tenderness HEART : RRR, systolic murmur ABDOMEN: Some distention, minimal right-sided abdominal tenderness EXTREMITIES : No LE swelling/tenderness, palpable pulses, no other conspicuous deformities noted NEUROLOGIC : Coherent, no facial asymmetry, no other gross focality Results & Data Results & Data Vital Signs (Past 12 Hours) Vital Signs Temp Pulse Resp BP Pulse Ox O2 Del Method O2 Flow Rate 01/20/25 23:00 72 18 94 Room Air 0 01/20/25 22:59 84 01/20/25 22:45 36.5 C 91 H 22 125/87 96 Room Air Laboratory Results Laboratory Results WBC 14.48 K/ul (4.8-10.8) H 01/20/25 23:00 RBC 4.16 M/uL (4.70-6.10) L 01/20/25 23:00 Hgb 11.8 g/dl (14.0-18.0) L 01/20/25 23:00 POC Hgb 11.2 g/dl (14.0-18.0) L 01/20/25 23:10 Hct 36.2 % (42.0-52.0) L 01/20/25 23:00 POC Hct 33 % (42-52) L 01/20/25 23:10 MCV 87.0 fL (80.0-100.0) 01/20/25 23:00 MCH 28.4 pg (25.0-34.0) 01/20/25 23:00 MCHC 32.6 g/dL (32.0-36.0) 01/20/25 23:00 RDW Std Deviation 47.8 fL (36.4-46.3) H 01/20/25 23:00 RDW Coeff of Aranza 15.1 % (11.5-14.5) H 01/20/25 23:00 Plt Count 188 K/uL (130-400) 01/20/25 23:00 MPV 10.3 fL (9.4-12.4) 01/20/25 23:00 Immature Gran % (Auto) 0.5 % 01/20/25 23:00 Neut % (Auto) 84.1 % 01/20/25 23:00 Lymph % (Auto) 5.8 % 01/20/25 23:00 [place] % (Auto) 9.1 % 01/20/25 23:00 Eos % (Auto) 0.2 % 01/20/25 23:00 Baso % (Auto) 0.3 % 01/20/25 23:00 Neut # (Auto) 12.17 K/uL (1.40-6.50) H 01/20/25 23:00 Lymph # (Auto) 0.84 K/uL (1.20-3.40) L 01/20/25 23:00 [place] # (Auto) 1.32 K/uL (0.11-0.59) H 01/20/25 23:00 Eos # (Auto) 0.03 K/uL (0.00-0.50) 01/20/25 23:00 Baso # (Auto) 0.05 K/uL (0.00-0.20) 01/20/25 23:00 Immature Gran # (Auto) 0.07 K/uL (0.01-0.20) 01/20/25 23:00 POC Sodium 134 mmol/L (135-144) L 01/20/25 23:10 Sodium 132 mmol/L (136-145) L 01/20/25 23:00 POC Potassium 5.0 mmol/L (3.3-5.0) 01/20/25 23:10 Potassium 4.8 mmol/L (3.5-5.1) 01/20/25 23:00 POC Chloride 103 mmol/L (101-112) 01/20/25 23:10 Chloride 100 mmol/L (98-107) 01/20/25 23:00 Carbon Dioxide 24 mmol/L (21-32) 01/20/25 23:00 POC Total CO2 21 mmol/L (24-31) L 01/20/25 23:10 Anion Gap 8 (3-11) 01/20/25 23:00 POC Anion Gap 15.0 mmol/L (16-25) L 01/20/25 23:10 POC BUN 43 mg/dl (7-18) H 01/20/25 23:10 BUN 42 mg/dl (6-23) H 01/20/25 23:00 Creatinine 2.33 mg/dl (0.6-1.4) H 01/20/25 23:00 POC Creatinine 2.4 mg/dl (0.6-1.3) H 01/20/25 23:10 Est Cr Clr Drug Dosing 28.0 ml/min 01/20/25 23:00 eGFR 28.27 01/20/25 23:00 BUN/Creatinine Ratio 18.0 (10-20) 01/20/25 23:00 Glucose 254 mg/dl (70-99(Fasting)) H 01/20/25 23:00 POC Glucose (other) 255 mg/dl (70-99) H 01/20/25 23:10 Calcium 9.4 mg/dl (8.6-10.3) 01/20/25 23:00 POC Ioniz Calcium Julisa 1.19 mmol/l (1.12-1.32) 01/20/25 23:10 Total Bilirubin 0.7 mg/dl (0.2-1.0) 01/20/25 23:00 AST 17 U/L (13-39) 01/20/25 23:00 ALT 16 U/L (7-52) 01/20/25 23:00 Alkaline Phosphatase 82 U/L (34-104) 01/20/25 23:00 Total Creatine Kinase 44 U/L (30-223) 01/20/25 23:00 Total Protein 7.5 gm/dl (6.0-8.3) 01/20/25 23:00 Albumin 4.0 gm/dl (3.4-5.0) 01/20/25 23:00 Globulin 3.5 gm/dl (2.5-4.0) 01/20/25 23:00 Albumin/Globulin Ratio 1.1 (0.9-2) 01/20/25 23:00 Lipase 39 U/L (11-82) 01/20/25 23:00 Impressions Abdomen/Pelvis CT 01/20/25 23:14 CT of the abdomen pelvis without contrast Technique: Noncontrast axial images of the abdomen pelvis. Coronal and sagittal reformatted images made available for review Comparison made to prior exam dated October 23, 2024 Findings: Coronary artery calcifications. Lung bases are clear. Trace pericardial effusion. Right sided hydroureteronephrosis secondary to a 1 cm proximal right ureteral calculi just beyond the UPJ. Nonobstructing right intrarenal calculus. No left-sided hydroureteronephrosis. No left renal, ureteral, or bladder calculi. Cholelithiasis without evidence of acute cholecystitis. Remaining limited noncontrast CT evaluation of the remaining solid abdominal organs demonstrates no gross abnormality. No free air or intestinal obstruction. Diverticulosis without evidence of diverticulitis. Urinary bladder is unremarkable. Bone windows demonstrate no focal abnormality Impression Right-sided hydroureteronephrosis secondary to 1 cm proximal right ureteral calculus just beyond the right UPJ. Electronically signed by Sang Alonzo 01-20-2025 11:48 PM
[2025-01-21] MEDS: TAMSULOSIN HCL 0.4 MG CAP PO STA (00:49)
[2025-01-21] MEDS ORDERED: HYDROmorphone INJ 0.5 MG/0.5 ML SYR IV PRN (01:15)
[2025-01-21] MEDS ORDERED: PROMETHAZINE 6.25 MG/50.25 ML BAG IV PRN (01:15)
[2025-01-21] MEDS ORDERED: LORazepam 0.5 MG TAB PO PRN (01:19)
[2025-01-21 01:53] LABS: Appearance Urine Clear (Clear); Bacteria Urine Automated None Seen (None Seen); Cast Urine Automated 0-2 /lpf (0-2); Epithelial Cell Urine Auto 0-2 /hpf (0-2); Glucose Urine UA Negative (Negative); RBC Urine Automated 0-2 /hpf (0-2); WBC Urine Automated 0-5 /hpf (0-5)
[2025-01-21] MEDS ORDERED: GLUCAGON FOR INJ 1 MG VIAL SQ PRN (01:57)
[2025-01-21] MEDS ORDERED: GLUCOSE 10 TAB/TUBE PO PRN (01:57)
[2025-01-21] MEDS ORDERED: GLUCOSE 40% GEL 15 GM TUBE PO PRN (01:57)
[2025-01-21] MEDS ORDERED: CARBOHYDRATES FOR HYPOGLYCEMIA PO PRN (01:57)
[2025-01-21] MEDS ORDERED: DEXTROSE 50% 50 ML SYRINGE IV PRN (01:57)
[2025-01-21] MEDS: INSULIN ASPART PER UNIT CHARGE SC SCH ×2 (02:28→17:00)
--- NOTE | 2025-01-21 02:28 | XRay Report ---
EXAM: XR chest 1V portable CLINICAL HISTORY: renal failure TECHNIQUE: An X-ray image of the chest is obtained in AP projection. COMPARISON: prior X-ray of the chest on 07/09/2024 FINDINGS: Pulmonary Parenchyma: Prominent hilar vascular markings with mild interstitial thickening at the lower lung zones, features suggestive of congestion (new). No evidence of consolidation, collapse, or focal opacities. No pulmonary nodules are identified. No evidence of pleural effusion or pleural thickening. Heart and Mediastinum: The cardiac shadow is displaying the upper limit of normal size (mildly increased). No mediastinal widening or masses. No hilar or mediastinal lymphadenopathy. Bony Thorax: Bony thorax appears intact without fractures or deformities. Soft Tissues: Soft tissues overlying the chest wall are unremarkable. Overlying monitor leads are seen. IMPRESSION: - Prominent hilar vascular markings with mild interstitial thickening at the lower lung zones, features suggestive of congestion (new). - Upper limit of normal cardiac size (mildly increased). Electronically signed by Matthew Roy 01-21-2025 02:27 AM
[2025-01-21] MEDS: SODIUM CHLORIDE 0.9% 1,000 ML IV ONE (02:39)
[2025-01-21 07:08] LABS: Hematocrit (blood only) 31.9 % (42.0-52.0); Hemoglobin 10.4 g/dl (14.0-18.0); Immature Granulocytes # (auto) 0.04 K/uL (0.01-0.20); Immature Granulocytes % (auto) 0.4 %; Mean Corpuscular Hemoglobin 29.1 pg (25.0-34.0); Mean Corpuscular Volume 89.4 fL (80.0-100.0); Platelet Count 144 K/uL (130-400); RDW Standard Deviation 49.7 fL (36.4-46.3); Red Blood Count 3.57 M/uL (4.70-6.10); White Blood Count 8.90 K/ul (4.8-10.8)
[2025-01-21 07:32] LABS: Anion Gap 7.0 (3-11); Blood Urea Nitrogen 37.0 mg/dl (6-23); Calcium 8.6 mg/dl (8.6-10.3); Carbon Dioxide 26.0 mmol/L (21-32); Chloride 105.0 mmol/L (98-107); Creatinine Clr Calc Pharmacy 30.6 ml/min; Glucose 146.0 mg/dl (70-99(Fasting)); Potassium 4.5 mmol/L (3.5-5.1); Sodium 138.0 mmol/L (136-145)
[2025-01-21 07:36] LABS: Partial Thromboplastin Time 32 Seconds (21-31)
[2025-01-21] MEDS: APIXABAN 5 MG TABLET PO SCH (08:20)
[2025-01-21] MEDS: GABAPENTIN 100 MG CAP PO SCH (08:20)
[2025-01-21] MEDS: ASPIRIN 81 MG ECTAB PO SCH (08:20)
[2025-01-21] MEDS: FINASTERIDE 5 MG TAB PO SCH (08:20)
[2025-01-21] MEDS: ATORVASTATIN 40 MG TAB PO SCH (08:20)
[2025-01-21] MEDS: SERTRALINE HCL 50 MG TABLET PO SCH (08:21)
[2025-01-21] MEDS: PROPRANOLOL HCL 10 MG TAB PO SCH (08:21)
--- NOTE | 2025-01-21 09:23 | Urology Progress Note ---
Date of Service January 21, 2025 Assessment & Plan (1) Ureterolithiasis: (2) Renal colic on right side: (3) MAGY (acute kidney injury): Plan 74yo male admitted with flank pain and MAGY secondary to an obstructing 1cm proximal right ureteral stone Pt afebrile, hemodynamically stable Labs- WBCs 8.90, Creatinine 2.16 (was 2.33 on admit) UA not suggestive of infection We discussed acute stone management with cystoscopy and stent placement. Ureteral stents were discussed as well as post-operative issues and pain management. He is aware a second procedure will be needed for stone treatment. Risks and benefits discussed. All questions were answered. Will proceed to OR today for cystoscopy, right retrograde pyelogram, right ureteral stent placement. Risks/benefits to be reviewed with patient by Dr. Quevedo. Keep NPO. Will cover with Ancef preoperatively. Urology will follow. Admission and Anticipated Discharge Date Admission Date: January 21, 2025 Supervising Physician Co-Signing Physician Notes Due to size of stone and pain, we will proceed with cystoscopy, right retrograde and right ureteral stent placement. Consent obtained. Patient marked. Subjective Pt seen at bedside today Awake and resting in bed on arrival No acute distress Has been NPO Pain is currently well controlled Review of Systems Constitutional: as per Subjective / HPI Genitourinary: + as per Subjective / HPI Physical Exam Constitutional: no acute distress Respiratory: no respiratory distress and no labored breathing Neurologic: awake Psychiatric: A+Ox3, euthymic affect Results & Data Vital Signs (Past 12 Hours) Vital Signs Temp Pulse Pulse Pulse Resp BP BP 01/21/25 07:42 36.6 C 71 18 148/80 H 01/21/25 02:02 36.4 C L 75 18 167/96 H 01/21/25 01:36 71 20 158/67 H 01/21/25 01:00 76 16 171/89 H 01/21/25 00:30 73 18 154/92 H 01/21/25 00:00 75 18 146/88 H 01/20/25 23:00 72 18 01/20/25 22:59 84 01/20/25 22:45 36.5 C 91 H 22 125/87 Pulse Ox O2 Del Method O2 Flow Rate 01/21/25 07:42 95 Room Air 01/21/25 02:02 95 Room Air 01/21/25 01:36 93 Room Air 01/21/25 01:00 93 01/21/25 00:30 94 01/21/25 00:00 93 01/20/25 23:00 94 Room Air 0 01/20/25 22:59 01/20/25 22:45 96 Room Air PG Care Time/CCT Total # of Minutes Spent Total Time Spent with Patient: Total time spent is greater than 50% in coordination of care (as documented) at patient's floor/unit and/or counseling patient: Coding Level of Care Code None Diagnoses Ureterolithiasis N20.1 Renal colic on right side N23 MAGY (acute kidney injury) N17.9
--- NOTE | 2025-01-21 09:44 | Anesthesiology Consultation ---
Date of Service January 21, 2025 Assessment & Plan (1) Encounter for pre-operative examination: Chart Review Chart Review: Acceptable Risk for Surgery History Surgery Operation Date: 01/21/25 10:35 Proposed Procedures p Cystoscopy Right Retrograde Pyelogram and Stent Placement - Keo Quevedo MD Height/Weight Height: 5 ft 7 in Weight: 86.6 kg Allergies Allergy/AdvReac Type Severity Reaction Status Date / Time No Known Allergies Allergy Verified 01/20/25 23:22 Medications Home Medications Medication Instructions Recorded Confirmed Last Taken metformin 1,000 mg tablet 1,000 mg PO BIDM 02/12/21 01/20/25 10/22/24 08:00 atorvastatin 40 mg tablet (Lipitor) 40 mg PO QAM 03/29/21 01/20/25 10/22/24 finasteride 5 mg tablet 5 mg PO QAM 05/08/24 01/20/25 10/22/24 docusate sodium 100 mg capsule 100 mg PO [id number] 05/15/24 01/20/25 10/21/24 (Stool Softener) sertraline 50 mg tablet 50 mg PO QAM 30 days #30 tabs 05/30/24 01/20/25 10/22/24 acetaminophen 500 mg tablet 500 mg PO TID PRN Pain 10/22/24 01/20/25 Unknown (Tylenol Extra Strength) aspirin 81 mg tablet,delayed 81 mg PO QAM 10/22/24 01/20/25 10/22/24 release gabapentin 300 mg capsule 300 mg PO BID 10/22/24 01/20/25 Unknown apixaban 5 mg tablet (Eliquis) 5 mg PO AMHS 01/20/25 01/20/25 Unknown ondansetron HCl 4 mg tablet 4 mg PO Q6 PRN Nausea 01/20/25 01/20/25 Unknown propranolol 10 mg tablet 5 mg PO AMHS 01/20/25 01/20/25 Unknown Active Medications Generic Name Dose Route Start Last Admin Trade Name Freq PRN Reason Stop Dose Admin Apixaban 5 mg 01/21/25 09:00 01/21/25 08:20 Apixaban 5 Mg Tablet PO 02/20/25 08:59 5 mg AMHS WILMER Administration Aspirin 81 mg 01/21/25 09:00 01/21/25 08:20 Aspirin 81 Mg Ectab PO 02/20/25 08:59 81 mg QAM WILMER Administration Atorvastatin Calcium 40 mg 01/21/25 09:00 01/21/25 08:20 Atorvastatin 40 Mg Tab PO 02/20/25 08:59 40 mg QAM WILMER Administration Finasteride 5 mg 01/21/25 09:00 01/21/25 08:20 Finasteride 5 Mg Tab PO 02/20/25 08:59 5 mg QAM WILMER Administration Gabapentin 200 mg 01/21/25 09:00 01/21/25 08:20 Gabapentin 100 Mg Cap PO 02/20/25 08:59 200 mg BID WILMER Administration Sodium Chloride 1,000 mls @ 60 mls/hr 01/21/25 01:20 01/21/25 02:39 Nss IV 01/21/25 17:59 60 mls/hr .[id number] ONE Administration Insulin Aspart 0 units 01/21/25 01:57 01/21/25 06:01 Insulin Aspart Per Unit Charge SC 02/20/25 01:56 Not Given Q6 WILMER Propranolol HCl 5 mg 01/21/25 09:00 01/21/25 08:21 Propranolol Hcl 10 Mg Tab PO 02/20/25 08:59 5 mg AMHS WILMER Administration Sertraline HCl 50 mg 01/21/25 09:00 01/21/25 08:21 Sertraline Hcl 50 Mg Tablet PO 02/20/25 08:59 50 mg QAM WILMER Administration Past Medical History Medical History (Updated 01/21/25 @ 09:43 by Manjit Michel MD) Diabetes mellitus, type 2 NIDDM Knee pain, right MAGY (acute kidney injury) Weakness Elevated troponin Anemia Stroke 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 ischemic stroke, residual mild weakness and short- term memory impairment Pulmonary embolism 1993- on Eliquis Hydronephrosis with urinary obstruction due to ureteral calculus Hypertension Past Family History Family History Uncle Family history of diabetes mellitus Other Heart disease Past Surgical History Surgical History History of back surgery No hardware History of cystoscopy Cystoscopy, left retropyelogram, Left ureteral stent placement (03/30/21): LMA#4 at [facility] H/O colonoscopy History of tympanoplasty of right ear Status post appendectomy Social History Smoking Status: Former smoker tobacco type: cigarettes Do You Dip or Chew Tobacco: No Hx Alcohol Use: No Hx Substance Use: No substance use type: does not use Physical Exam Vital Signs Last Vital Signs Temp 36.6 C 01/21/25 07:42 Pulse 71 01/21/25 07:42 Resp 18 01/21/25 07:42 BP 148/80 H 01/21/25 07:42 Pulse Ox 95 01/21/25 07:42 O2 Del Method Room Air 01/21/25 07:42 O2 Flow Rate 0 01/20/25 23:00 Testing Laboratory Results 01/21/25 06:40 01/21/25 06:40 APTT 32 Seconds (21-31) H 01/21/25 06:40 Urine Color Yellow 01/21/25 01:25 Urine Appearance Clear (Clear) 01/21/25 01:25 Urine pH 5.5 (4.5-7.5) 01/21/25 01:25 Ur Specific [place] 1.014 (1.000-1.030) 01/21/25 01:25 Urine Protein Trace (Negative) H 01/21/25 01:25 Urine Glucose (UA) Negative (Negative) 01/21/25 01:25 Urine Ketones Negative (Negative) 01/21/25 01:25 Urine Nitrite Negative (Negative) 01/21/25 01:25 Ur Leukocyte Esterase Negative (Negative) 01/21/25 01:25 Urine WBC (Auto) 0-5 /hpf (0-5) 01/21/25 01:25 Urine RBC (Auto) 0-2 /hpf (0-2) 01/21/25 01:25 U Hyaline Cast (Auto) 0-2 /lpf (0-2) 01/21/25 01:25 U Epithel Cells (Auto) 0-2 /hpf (0-2) 01/21/25 01:25 Urine Bacteria (Auto) None Seen (None Seen) 01/21/25 01:25 01/21/25 01/21/25 01/20/25 05:55 02:22 23:10 POC Glucose 136 H 203 H POC Glucose (other) 255 H Electrocardiogram Date: 10/24/24 Findings: + SB @ (55) Echocardiogram Date: 10/23/24 LV Function: normal Valvular Disease: + no significant valvular disease
[2025-01-21] MEDS ORDERED: MIDAZOLAM HCL 1 MG/ML 2ML VIAL ONE (12:07)
[2025-01-21] MEDS ORDERED: ONDANSETRON INJ 2 MG/ML 2 ML VIAL ONE (12:08)
[2025-01-21] MEDS ORDERED: LIDOCAINE 2% 2 ML VIAL/AMP(20MG/ML) INFIL ONE (12:08)
[2025-01-21] MEDS ORDERED: PROPOFOL IV EMULSION 10 MG/ML 20 ML VIAL IV ONE (12:08)
--- NOTE | 2025-01-21 13:08 | Operative Report ---
PG Post Operative Report Pre & Post Diagnosis Operation Date: 01/21/25 10:35 Pre-Op Diagnosis: Ureterolithiasis, renal colic on right side, acute kidney injury Post-Op Diagnosis: Ureterolithiasis, renal colic on right side, acute kidney injury I identified the patient and participated in the time-out.: Yes Procedure Operation Date: 01/21/25 10:35 Actual Procedures p Cystoscopy Right Retrograde Pyelogram with radiographic interpretation and Right Stent Placement(Right) - Keo Quevedo MD Surgeon Keo Quevedo MD Hot Cell Technician None Estimated Blood Loss 0 Findings See Below Right stent in appropriate position. Retrograde showed obstruction at the level of the stone. Specimens None Drains 6 Liberian by 26 cm right ureteral stent Anesthesia Type MAC Complications none Indications 74-year-old male with a right proximal obstructing ureteral calculus who presents for stent placement. Description of Procedure After informed consent was obtained, the patient was transported operative suite. MAC anesthesia was induced. The patient was placed in dorsolithotomy position prepped and draped in a sterile fashion. They received preoperative Ancef for antibiotic prophylaxis. An appropriate surgical timeout was performed. A 22 [place]ian rigid scope was inserted per urethra into the bladder. [place] cystoscopy revealed no stones or lesions. I turned my attention the right ureteral orifice and intubated this with a 5 [place]ian open-ended catheter. A right retrograde pyelogram was shot which did not go past the stone but showed a filling defect consistent with where the stone was seen on CT. A sensor wire was advanced into the kidney and confirmed fluoroscopically. A 6 [place]ian by 26 cm right ureteral stent was deployed with a good proximal coil in the renal pelvis and a good distal coil noted in the bladder, confirmed fluoroscopically and under direct visualization, respectively. The bladder was emptied and the scope was removed. This concluded the end of the case. All counts were correct at the end of the case. I was present, scrubbed, and actively participated for the entirety of the procedure. I attest to the content of the Intraoperative Record and any orders documented therein. Any exceptions are noted below.
[2025-01-21] MEDS: DIATRIZOATE MEGLUMINE 30% 100ML VIAL INSTIL ONE (13:11)
--- NOTE | 2025-01-21 13:21 | Fluoroscopy Report ---
FL retrograde includes kub CLINICAL HISTORY: RETROGRADE COMPARISON STUDY: None FLUOROSCOPY TIME: 16 seconds FLUOROSCOPY IMAGES: 2 EXPOSURE DOSE: 5 mGy FINDINGS: Fluoroscopy was provided for urologic procedure. IMPRESSION: Intraoperative fluoroscopy. ACT 112: Negative or not required by law. Electronically signed by: Johnny Estevez M.D. 01/21/2025 1:20 PM
--- NOTE | 2025-01-21 13:41 | Anesthesiology Progress Note ---
Date of Service January 21, 2025 Anesthesia Post Procedure Vital Signs Vital Signs: Temp Pulse Pulse Pulse Resp BP BP 01/21/25 13:35 36.6 C 60 14 109/59 L 01/21/25 13:25 67 17 111/64 01/21/25 13:16 36.3 C L 64 15 105/55 L 01/21/25 12:00 36.6 C 65 20 131/68 01/21/25 07:42 36.6 C 71 18 148/80 H 01/21/25 02:02 36.4 C L 75 18 167/96 H 01/21/25 01:36 71 20 158/67 H 01/21/25 01:00 76 16 171/89 H 01/21/25 00:30 73 18 154/92 H 01/21/25 00:00 75 18 146/88 H 01/20/25 23:00 72 18 01/20/25 22:59 84 01/20/25 22:45 36.5 C 91 H 22 125/87 Pulse Ox O2 Del Method O2 Flow Rate 01/21/25 13:35 95 Room Air 01/21/25 13:25 96 Room Air 01/21/25 13:16 94 Oxymask 4 01/21/25 12:00 95 Room Air 01/21/25 07:42 95 Room Air 01/21/25 02:02 95 Room Air 01/21/25 01:36 93 Room Air 01/21/25 01:00 93 01/21/25 00:30 94 01/21/25 00:00 93 01/20/25 23:00 94 Room Air 0 01/20/25 22:59 01/20/25 22:45 96 Room Air Pain Intensity Abdomen: Pain Intensity: 3 Transfer of Care Handoff Completed per policy Notes Mental Status: alert / awake / arousable Patient Amnestic to Procedure: Yes Nausea / Vomiting: adequately controlled Pain: adequately controlled Airway Patency, RR, SpO2: stable & adequate BP & HR: stable & adequate Hydration State: stable & adequate Anesthetic Complications: no major complications apparent
--- NOTE | 2025-01-21 14:12 | Communication Note ---
Date of Service: January 21, 2025 Pt was seen in room 376-1. This note does not reflect a billable service as pt was admitted after 00:00 on 01/21/25. Pt lying in bed. He c/o suprapubic and RLQ discomfort. He has remained NPO. He denies n/v, f/c/s, chest pain, sob. He is urinating w/o difficulty and denies hematuria, dysuria. VSS Gen: WD/WN, NAD, A&O x3, facial hair unkempt HEENT: Normocephalic, atraumatic, conjunctivae moist, sclerae anicteric, mucous membranes moist. Lung: Clear to Auscultation bilaterally, no wheezes/rales/rhonchi Heart: Regular rate, regular rhythm, no murmurs, rubs, or gallops Abdomen: Soft, NT, ND +BS x 4 Extremities: No edema Skin: Warm, no rash, negative turgor. A/P: 1. Obstructive uropathy 2. Ureterolithiasis 3. MAGY Cr. on admission was 2.33, downtrended to 2.16 this a.m. Pt is s/p Cystoscopy Right Retrograde Pyelogram with radiographic interpretation and Right Stent Placement(Right) Received Ancef pre operatively, UA benign Per Dr. Quevedo suspect able to discharge to home tomorrow if pt feeling well, urology to f/u as outpt Continue flomax continue IVF, repeat bmp in a.m. 4. T2DM: hold metformin, chronic, stable, continue ISS per protocol, a1c 6.7 in October 5. Hx of recurrent DVT: continue eliquis, discussed with urology 6. Hx of CVA: continue asa, statin, eliquis, risk factor reduction 7: Elevated BP reading: noted in ED last night, started on amlodipine, outpt records reveal pt bps typically 100-120s systolic, suspect high in setting of acute pain, will d/c amlodipine and monitor for now post stent placement 8. JACOB: Cpap at hs DVT ppx: Eliqius FULL CODE PCP: Celina Dispo: admitted to medical, likely d/c tomorrow Pt was seen and examined in collaboration with Dr. Marie, please see addendum Attending Addendum: Case reviewed with the advanced practitioner. I have reviewed the advanced practitioner's documentation on the date of service referenced in note, and I agree with, and take responsibility for the plan of care. please refer to her notes for full details patient seen and examined, records reviewed by myself as well diagnoses and plan of care as per advanced practitioner's notes I spent a total of 35 minutes coordinating, documenting, and providing care for this patient, excluding time spent in the performance of separately billed services or time spent by another provider/QHP. Ildefonso Garcia MD
[2025-01-21] MEDS: SODIUM CHLORIDE 0.9% 1,000 ML IV SCH (15:21)
[2025-01-21] MEDS: PHENAZOPYRIDINE HCL 200 MG TAB PO PRN (17:28)
[2025-01-22 07:57] LABS: Hematocrit (blood only) 30.6 % (42.0-52.0); Hemoglobin 10.0 g/dl (14.0-18.0); Immature Granulocytes # (auto) 0.04 K/uL (0.01-0.20); Immature Granulocytes % (auto) 0.5 %; Mean Corpuscular Hemoglobin 29.5 pg (25.0-34.0); Mean Corpuscular Volume 90.3 fL (80.0-100.0); Platelet Count 152 K/uL (130-400); RDW Standard Deviation 49.4 fL (36.4-46.3); Red Blood Count 3.39 M/uL (4.70-6.10); White Blood Count 7.40 K/ul (4.8-10.8)
[2025-01-22] MEDS: TAMSULOSIN HCL 0.4 MG CAP PO SCH (08:27)
[2025-01-22 08:38] LABS: Anion Gap 7.0 (3-11); Blood Urea Nitrogen 35.0 mg/dl (6-23); Calcium 8.3 mg/dl (8.6-10.3); Carbon Dioxide 25.0 mmol/L (21-32); Chloride 104.0 mmol/L (98-107); Creatinine Clr Calc Pharmacy 30.0 ml/min; Glucose 138.0 mg/dl (70-99(Fasting)); Potassium 4.7 mmol/L (3.5-5.1); Sodium 136.0 mmol/L (136-145)
--- NOTE | 2025-01-22 10:26 | Urology Progress Note ---
Date of Service January 22, 2025 Assessment & Plan (1) Ureterolithiasis: (2) Renal colic on right side: (3) MAGY (acute kidney injury): Plan 74yo male admitted with flank pain and MAGY secondary to an obstructing 1cm proximal right ureteral stone POD #1 s/p cystoscopy and right ureteral stent placement Tolerating the stent with minimal bother Afebrile, hemodynamically stable Labs- WBCs 7.40, Creatinine 2.2 UA not suggestive of infection No further acute intervention warranted Continue Tamsulosin, prn Pyridium and prn pain medication for stent management Will arrange outpatient follow-up with urology to discuss definitive stone treatment Urology will sign-off, please contact us with any questions/concerns Admission and Anticipated Discharge Date Admission Date: January 21, 2025 Subjective Patient seen at bedside this morning He is awake and resting in bed on arrival No acute distress Reports some bladder discomfort Denies f/c/n/v Voiding without issue Review of Systems Constitutional: as per Subjective / HPI Genitourinary: + as per Subjective / HPI Physical Exam Constitutional: no acute distress Respiratory: no respiratory distress and no labored breathing Neurologic: awake Psychiatric: A+Ox3, euthymic affect Results & Data Vital Signs (Past 12 Hours) Vital Signs Temp Pulse Resp BP Pulse Ox O2 Del Method 01/22/25 07:59 36.3 C L 62 18 119/71 94 Room Air 01/22/25 03:00 36.5 C 62 18 134/79 96 Room Air 01/21/25 23:07 36.7 C 58 L 18 126/75 93 Room Air PG Care Time/CCT Total # of Minutes Spent Total Time Spent with Patient: Total time spent is greater than 50% in coordination of care (as documented) at patient's floor/unit and/or counseling patient: Coding Level of Care Code 54708 SUB INP/OBS CARE 2/35MIN Diagnoses Ureterolithiasis N20.1 Renal colic on right side N23 MAGY (acute kidney injury) N17.9
[2025-01-22] MEDS: SODIUM CHLORIDE 0.9% 1,000 ML IV SCH (10:40)
[2025-01-22 12:36] LABS: Appearance Urine Cloudy (Clear)
[2025-01-22 12:41] LABS: Epithelial Cell Urine 0-2 /hpf (0-2)
--- NOTE | 2025-01-22 13:30 | Hospitalist Progress Note ---
Date of Service January 22, 2025 Assessment & Plan (1) Ureterolithiasis: (2) MAGY (acute kidney injury): (3) Type 2 diabetes mellitus: Plan Plan: 1. Obstructive uropathy 2. Ureterolithiasis 3. MAGY Cr. on admission was 2.33, downtrended to 2.16 on 01/22 Cr still elevated today at 2.2 Pt is s/p Cystoscopy Right Retrograde Pyelogram with radiographic interpretation and Right Stent Placement(Right) POD #1 Received Ancef pre operatively, UA benign Continue flomax, prn pyridium will remain hospitalized given continued MAGY, repeat BMP in a.m. continue IVF, repeat bmp in a.m. 4. T2DM: hold metformin, chronic, stable, continue ISS per protocol, a1c 6.7 in November 01. Hx of recurrent DVT: hold eliquis in setting of hematuria, will resume once hematuria resolves, encourage pt to ambulate 6. Hx of CVA: continue asa, statin, eliquis, risk factor reduction 7: Elevated BP reading: noted in ED, started on amlodipine, outpt records reveal pt bps typically 100-120s systolic, suspect high in setting of acute pain, will d/c amlodipine and monitor for now post stent placement. His blood pressure has remained adequate off BP meds 8. JACOB: Cpap at hs, pt refused last night DVT ppx: Eliqius on hold in setting of hematuria FULL CODE PCP: Celina Dispo: admitted to medical, remain admitted due to MAGY, repeat bmp in a.m. , if cr downtrending and less than 2 likely will be ok to d/c in the a.m Pt was seen and examined in collaboration with Dr. Marie, please see addendum I spent a total of 51 minutes coordinating, documenting and providing care for this patient excluding time spent in the performance of separately billed services or time spent by another provider/QHP. I spoke with Montse Mendes per pts request, , pts friend. Admission and Anticipated Discharge Date Admission Date: January 21, 2025 Supervising Physician Co-Signing Physician Notes Attending Addendum: Case reviewed with the advanced practitioner. I have reviewed the advanced practitioner's documentation on the date of service referenced in note, and I agree with, and take responsibility for the plan of care. please refer to her notes for full details patient seen and examined, records reviewed by myself as well diagnoses and plan of care as per advanced practitioner's notes I spent a total of 40 minutes coordinating, documenting, and providing care for this patient, excluding time spent in the performance of separately billed services or time spent by another provider/QHP. Ildefonso Garcia MD Subjective Pt was seen in room 376-1. F/U Cystoscopy s/p stent placement. C/o mild suprapubic discomfort, 10/06. He has some hematuria and dysuria despite Pyridium. Denies f/c/s, chest pain, sob, n/v/d. He feels he is voiding a normal amount. Appetite is good. He is eating/drinking well. Review of Systems Review of Systems: All systems reviewed & are unremarkable except as noted in HPI & below Physical Exam Physical Exam: Gen: WD/WN, M, NAD, A&O x3 HEENT: Normocephalic, atraumatic, conjunctivae moist, sclerae anicteric, mucous membranes moist. Lung: Clear to Auscultation bilaterally, no wheezes/rales/rhonchi Heart: Regular rate, regular rhythm, no murmurs, rubs, or gallops Abdomen: Soft, NT, ND +BS x 4 Extremities: No edema Skin: Warm, no rash, negative turgor. Results & Data Results & Data Vital Signs (Past 12 Hours) Vital Signs Temp Pulse Resp BP Pulse Ox O2 Del Method 01/22/25 07:59 36.3 C L 62 18 119/71 94 Room Air 01/22/25 03:00 36.5 C 62 18 134/79 96 Room Air Laboratory Results I have independently reviewed and interpreted patient's cbc, bmp, UA Medications Administered Current Inpatient Medications Apixaban (Apixaban 5 Mg Tablet) 5 mg PO AMHS [facility] Stop: 02/20/25 08:59 Last Admin: 01/22/25 08:27 Dose: 5 mg Aspirin (Aspirin 81 Mg Ectab) 81 mg PO QAM [facility] Stop: 02/20/25 08:59 Last Admin: 01/22/25 08:27 Dose: 81 mg Atorvastatin Calcium (Atorvastatin 40 Mg Tab) 40 mg PO QAM [facility] Stop: 02/20/25 08:59 Last Admin: 01/22/25 08:27 Dose: 40 mg Dextrose (Dextrose 50% 50 Ml Syringe) 25 - 50 ml IV UD PRN; Protocol PRN Reason: Hypoglycemia Protocol Stop: 02/20/25 01:56 Finasteride (Finasteride 5 Mg Tab) 5 mg PO QAM [facility] Stop: 02/20/25 08:59 Last Admin: 01/22/25 08:27 Dose: 5 mg Gabapentin (Gabapentin 100 Mg Cap) 200 mg PO BID [facility] Stop: 02/20/25 08:59 Last Admin: 01/22/25 08:27 Dose: 200 mg Glucagon (Glucagon For Inj 1 Mg Vial) 1 mg SQ UD PRN; Protocol PRN Reason: Hypoglycemia Protocol Stop: 02/20/25 01:56 Glucose (Glucose 40% Gel 15 Gm Tube) 15 - 30 gm PO UD PRN; Protocol PRN Reason: Hypoglycemia Protocol Stop: 02/20/25 01:56 Glucose (Glucose 10 Tab/Tube) 4 - 8 tab PO UD PRN; Protocol PRN Reason: Hypoglycemia Protocol Stop: 02/20/25 01:56 Hydralazine HCl (Hydralazine Hcl 20 Mg/Ml Vial) 5 mg IV Q6H PRN PRN Reason: SBP > 180 Stop: 02/20/25 14:14 Hydromorphone HCl (Hydromorphone Inj 0.5 Mg/0.5 Ml Syr) 0.5 mg IV Q4H PRN PRN Reason: Pain Stop: 02/04/25 01:14 Promethazine HCl (Phenergan) 6.25 mg in 50.25 mls @ 201 mls/hr IV Q6H PRN PRN Reason: Nausea And Vomiting Stop: 02/20/25 01:14 Sodium Chloride (Nss) 1,000 mls @ 80 mls/hr IV .[id number] [facility] Stop: 01/25/25 09:59 Last Admin: 01/22/25 10:40 Dose: 80 mls/hr Insulin Aspart (Insulin Aspart Per Unit Charge) 0 units SC ACHS [facility] Stop: 02/20/25 16:29 Last Admin: 01/22/25 12:14 Dose: 4 units Lorazepam (Lorazepam 0.5 Mg Tab) 0.5 mg PO TID PRN PRN Reason: Anxiety Stop: 02/20/25 01:18 Miscellaneous (Carbohydrates For Hypoglycemia ) 15 - 30 gm PO UD PRN PRN Reason: Hypoglycemia Protocol Stop: 02/20/25 01:56 Oxycodone HCl (Oxycodone Hcl Ir 5 Mg Tab (Immediate Release)) 5 - 10 mg PO QID PRN PRN Reason: Pain Stop: 02/04/25 01:14 Last Admin: 01/21/25 23:54 Dose: 5 mg Phenazopyridine HCl (Phenazopyridine Hcl 200 Mg Tab) 200 mg PO TID PRN PRN Reason: urologic pain Stop: 02/20/25 14:05 Last Admin: 01/22/25 08:29 Dose: 200 mg Propranolol HCl (Propranolol Hcl 10 Mg Tab) 5 mg PO [facility] Stop: 02/20/25 08:59 Last Admin: 01/22/25 08:27 Dose: 5 mg Sertraline HCl (Sertraline Hcl 50 Mg Tablet) 50 mg PO QAM [facility] Stop: 02/20/25 08:59 Last Admin: 01/22/25 08:27 Dose: 50 mg Tamsulosin HCl (Tamsulosin Hcl 0.4 Mg Cap) 0.4 mg PO QAM [facility] Stop: 02/21/25 08:59 Last Admin: 01/22/25 08:27 Dose: 0.4 mg
[2025-01-23 08:22] LABS: Hematocrit (blood only) 33.4 % (42.0-52.0); Hemoglobin 10.9 g/dl (14.0-18.0); Immature Granulocytes # (auto) 0.03 K/uL (0.01-0.20); Immature Granulocytes % (auto) 0.4 %; Mean Corpuscular Hemoglobin 29.1 pg (25.0-34.0); Mean Corpuscular Volume 89.3 fL (80.0-100.0); Platelet Count 191 K/uL (130-400); RDW Standard Deviation 47.8 fL (36.4-46.3); Red Blood Count 3.74 M/uL (4.70-6.10); White Blood Count 7.00 K/ul (4.8-10.8)
[2025-01-23 08:37] LABS: Anion Gap 8.0 (3-11); Blood Urea Nitrogen 42.0 mg/dl (6-23); Calcium 8.5 mg/dl (8.6-10.3); Carbon Dioxide 23.0 mmol/L (21-32); Chloride 105.0 mmol/L (98-107); Creatinine Clr Calc Pharmacy 26.3 ml/min; Glucose 124.0 mg/dl (70-99(Fasting)); Potassium 4.6 mmol/L (3.5-5.1); Sodium 136.0 mmol/L (136-145)
--- NOTE | 2025-01-23 10:00 | XRay Report ---
KUB HISTORY: stent position COMPARISON STUDY: 01/21/2025 FINDINGS: Right ureteral stent appears well positioned. There is moderate retained stool. No bowel ob struction seen. No definite renal calculi seen. IMPRESSION: Well-positioned right ureteral stent. ACT 112: Negative or not required by law. The above report was generated using voice recognition software. It may contain grammatical, syntax o r spelling errors. Electronically signed by: Johnny Estevez M.D. 01/23/2025 9:59 AM
--- NOTE | 2025-01-23 11:09 | XRay Report ---
XR chest 1V portable CLINICAL HISTORY: sob COMPARISON STUDY: 01/21/2025 FINDINGS: Stable mild cardiomegaly without pulmonary vascular congestion. No effusion, consolidation, or pneumothorax. IMPRESSION: No acute findings. ACT 112: Negative or not required by law. Electronically signed by: Johnny Estevez M.D. 01/23/2025 11:08 AM
--- NOTE | 2025-01-23 11:25 | Hospitalist Progress Note ---
Date of Service January 23, 2025 Assessment & Plan (1) Ureterolithiasis: (2) MAGY (acute kidney injury): (3) Type 2 diabetes mellitus: Plan Plan: 1. Obstructive uropathy 2. Ureterolithiasis 3. MAGY Cr. on admission was 2.33, downtrended to 2.16 on 01/22 Cr increasing to 2.5 today Pt is s/p Cystoscopy Right Retrograde Pyelogram with radiographic interpretation and Right Stent Placement(Right) POD #2 Received Ancef pre operatively, UA benign Continue flomax, prn pyridium will remain hospitalized given continued MAGY, repeat BMP in a.m. continue IVF, consult nephrology KUB ordered: stent in good position, discussed with urology Jennifer Zaldivar who states she will check in on the patient and ordered bladder scan and pvrs Need to see down trending Cr prior to discharge will start bowel regimen given use of oxycodone for stent pain 4. T2DM: hold metformin, chronic, stable, continue ISS per protocol, a1c 6.7 in October 5. Hx of recurrent DVT: hold eliquis in setting of hematuria, will resume in a.m. 6. Hx of CVA: continue asa, statin, eliquis, risk factor reduction 7: Elevated BP reading: noted in ED, started on amlodipine, outpt records reveal pt bps typically 100-120s systolic, suspect high in setting of acute pain, will d/c amlodipine and monitor for now post stent placement. His blood pressure has remained adequate off BP meds, but is elevated this a.m. at 171/81 8. JACOB: Cpap at hs, pt refused last night DVT ppx: resume eliqius in a.m. FULL CODE PCP: Celina Dispo: admitted to medical, remain admitted due to MAGY, repeat bmp in a.m. , need to see Cr downtrending, nephro consulted Pt was seen and examined in collaboration with Dr. Marie, please see addendum I spent a total of 52 minutes coordinating, documenting and providing care for this patient excluding time spent in the performance of separately billed services or time spent by another provider/QHP. I spoke with Montse Mendes per pts request, , pts friend and provided her an update. Admission and Anticipated Discharge Date Admission Date: January 21, 2025 Supervising Physician Co-Signing Physician Notes Attending Addendum: Case reviewed with the advanced practitioner. I have reviewed the advanced practitioner's documentation on the date of service referenced in note, and I agree with, and take responsibility for the plan of care. please refer to her notes for full details diagnoses and plan of care as per advanced practitioner's notes I spent a total of 20 minutes coordinating, documenting, and providing care for this patient, excluding time spent in the performance of separately billed services or time spent by another provider/QHP. Ildefonso Garcia MD Subjective Pt was seen in room 376-1. F/U Cystoscopy s/p stent placement. Continues to have mild suprapubic and R flank pain, but overall feels improving. He has not had any hematuria this a.m. He denies f/c/s, chest pain, sob, n/v. He is tolerating diet. He feels he isn't drinking much. Review of Systems Review of Systems: All systems reviewed & are unremarkable except as noted in HPI & below Physical Exam Physical Exam: Gen: WD/WN, M, NAD, A&O x3 HEENT: Normocephalic, atraumatic, conjunctivae moist, sclerae anicteric, mucous membranes moist. Lung: Clear to Auscultation bilaterally, no wheezes/rales/rhonchi Heart: Regular rate, regular rhythm, no murmurs, rubs, or gallops Abdomen: Soft, +suprapubic pain mild, no rebound/guarding, ND +BS x 4 Extremities: No edema Skin: Warm, no rash, negative turgor. Results & Data Results & Data Vital Signs (Past 12 Hours) Vital Signs Temp Pulse Resp BP Pulse Ox O2 Del Method 01/23/25 07:28 36.7 C 73 18 171/81 H 93 Room Air Laboratory Results I h Short CBC 01/23/25 Range/Units 08:00 WBC 7.00 (4.8-10.8) K/ul Hgb 10.9 L (14.0-18.0) g/dl Hct 33.4 L (42.0-52.0) % Plt Count 191 (130-400) K/uL BMP 01/23/25 08:00 Sodium 136 Potassium 4.6 Chloride 105 Carbon Dioxide 23 BUN 42 H Creatinine 2.51 H D Glucose 124 H Calcium 8.5 L Urine 01/22/25 Range/Units 12:15 Urine Color See Comment Urine Appearance Cloudy A (Clear) Urine pH Not Reportable Ur Specific [place] 1.015 (1.000-1.030) Urine Protein Not Reportable Urine Glucose (UA) Not Reportable ave independently reviewed and interpreted patient's cbc, bmp Diagnostic Findings KUB X-Ray 01/23/25 09:21 KUB HISTORY: stent position COMPARISON STUDY: 01/21/2025 FINDINGS: Right ureteral stent appears well positioned. There is moderate retained stool. No bowel obstruction seen. No definite renal calculi seen. IMPRESSION: Well-positioned right ureteral stent. ACT 112: Negative or not required by law. The above report was generated using voice recognition software. It may contain grammatical, syntax or spelling errors. Electronically signed by: Johnny Estevez M.D. 01/23/2025 9:59 AM Chest X-Ray 01/23/25 10:43 XR chest 1V portable CLINICAL HISTORY: sob COMPARISON STUDY: 01/21/2025 FINDINGS: Stable mild cardiomegaly without pulmonary vascular congestion. No effusion, consolidation, or pneumothorax. IMPRESSION: No acute findings. ACT 112: Negative or not required by law. Electronically signed by: Johnny Estevez M.D. 01/23/2025 11:08 AM Medications Administered Current Inpatient Medications Apixaban (Apixaban 5 Mg Tablet) 5 mg PO AMHS [facility] Stop: 02/20/25 08:59 Last Admin: 01/22/25 08:27 Dose: 5 mg Aspirin (Aspirin 81 Mg Ectab) 81 mg PO QAM [facility] Stop: 02/20/25 08:59 Last Admin: 01/23/25 07:29 Dose: 81 mg Atorvastatin Calcium (Atorvastatin 40 Mg Tab) 40 mg PO QAM [facility] Stop: 02/20/25 08:59 Last Admin: 01/23/25 07:29 Dose: 40 mg Dextrose (Dextrose 50% 50 Ml Syringe) 25 - 50 ml IV UD PRN; Protocol PRN Reason: Hypoglycemia Protocol Stop: 02/20/25 01:56 Finasteride (Finasteride 5 Mg Tab) 5 mg PO QAM [facility] Stop: 02/20/25 08:59 Last Admin: 01/23/25 07:30 Dose: 5 mg Gabapentin (Gabapentin 100 Mg Cap) 200 mg PO BID [facility] Stop: 02/20/25 08:59 Last Admin: 01/23/25 07:29 Dose: 200 mg Glucagon (Glucagon For Inj 1 Mg Vial) 1 mg SQ UD PRN; Protocol PRN Reason: Hypoglycemia Protocol Stop: 02/20/25 01:56 Glucose (Glucose 40% Gel 15 Gm Tube) 15 - 30 gm PO UD PRN; Protocol PRN Reason: Hypoglycemia Protocol Stop: 02/20/25 01:56 Glucose (Glucose 10 Tab/Tube) 4 - 8 tab PO UD PRN; Protocol PRN Reason: Hypoglycemia Protocol Stop: 02/20/25 01:56 Hydralazine HCl (Hydralazine Hcl 20 Mg/Ml Vial) 5 mg IV Q6H PRN PRN Reason: SBP > 180 Stop: 02/20/25 14:14 Hydromorphone HCl (Hydromorphone Inj 0.5 Mg/0.5 Ml Syr) 0.5 mg IV Q4H PRN PRN Reason: Pain Stop: 02/04/25 01:14 Promethazine HCl (Phenergan) 6.25 mg in 50.25 mls @ 201 mls/hr IV Q6H PRN PRN Reason: Nausea And Vomiting Stop: 02/20/25 01:14 Sodium Chloride (Nss) 1,000 mls @ 80 mls/hr IV .[id number] [facility] Stop: 01/25/25 09:59 Last Admin: 01/23/25 01:12 Dose: 80 mls/hr Insulin Aspart (Insulin Aspart Per Unit Charge) 0 units SC ACHS [facility] Stop: 02/20/25 16:29 Last Admin: 01/23/25 08:41 Dose: 3 units Lorazepam (Lorazepam 0.5 Mg Tab) 0.5 mg PO TID PRN PRN Reason: Anxiety Stop: 02/20/25 01:18 Miscellaneous (Carbohydrates For Hypoglycemia ) 15 - 30 gm PO UD PRN PRN Reason: Hypoglycemia Protocol Stop: 02/20/25 01:56 Oxycodone HCl (Oxycodone Hcl Ir 5 Mg Tab (Immediate Release)) 5 - 10 mg PO QID PRN PRN Reason: Pain Stop: 02/04/25 01:14 Last Admin: 01/22/25 17:49 Dose: 10 mg Phenazopyridine HCl (Phenazopyridine Hcl 200 Mg Tab) 200 mg PO TID PRN PRN Reason: urologic pain Stop: 02/20/25 14:05 Last Admin: 01/22/25 17:47 Dose: 200 mg Propranolol HCl (Propranolol Hcl 10 Mg Tab) 5 mg PO [facility] Stop: 02/20/25 08:59 Last Admin: 01/23/25 07:29 Dose: 5 mg Sertraline HCl (Sertraline Hcl 50 Mg Tablet) 50 mg PO QAM [facility] Stop: 02/20/25 08:59 Last Admin: 01/23/25 07:29 Dose: 50 mg Tamsulosin HCl (Tamsulosin Hcl 0.4 Mg Cap) 0.4 mg PO QAM [facility] Stop: 02/21/25 08:59 Last Admin: 01/23/25 07:29 Dose: 0.4 mg
[2025-01-23] MEDS: POLYETHYLENE (MIRALAX) 17 GM PACK PO SCH (12:09)
--- NOTE | 2025-01-23 13:29 | Urology Progress Note ---
Date of Service January 23, 2025 Assessment & Plan (1) Ureterolithiasis: (2) Renal colic on right side: (3) MAGY (acute kidney injury): Plan 74yo male admitted with flank pain and MAGY secondary to an obstructing 1cm proximal right ureteral stone POD #2 s/p cystoscopy and right ureteral stent placement Reports some bladder discomfort, likely from stent Afebrile, hemodynamically stable Labs- WBCs 7.00, Creatinine up to 2.51 UA not suggestive of infection No further acute intervention warranted Creatinine increased today, nephrology consulted KUB today shows the stent in appropriate position Recommend checking bladder scan/PVR to ensure he is emptying Continue supportive care and pain management as needed Patient scheduled for outpatient follow-up with urology clinic on 01/26. Urology will follow peripherally, please contact us with any questions/concerns Attending note: Patient independently assessed, examined, interviewed, and evaluated. Patient was reevaluated by myself. Does appear to have improved from earlier today. Did discuss issues found on lab work including development of worsening MAGY. Agree with note as above. Patient's vitals and labs were all reviewed. Pertinent values in the HPI and plan section. Imaging was reviewed interpreted by myself. Agree with read. Vitals were reviewed. Discussed findings extensively with patient and family. Reviewed with nurse practitioner as well as consulting physicians/team. Patient's complicated medical and surgical history was reviewed and summarized above. Patient's surgical, medical, social, and family history were all reviewed with pertinent values as above. Discussed patient's current diagnosis as well as concerns and issues. Reviewed different options moving forward. Discussed potential risks and benefits as well as possible options and concerns. Patient is much more comfortable. Has not had severe major increase in symptoms or bother since earlier. Did discuss options for MAGY including supportive care. Recommend continued hydration and close monitoring. Would recommend continued supportive care. Patient does have follow-up already arranged. If patient does remain in the hospital may need to change that follow-up however at this point he would monitor and plan to keep it as long as the patient is discharged prior. Will continue to monitor. Call if any major development of fevers chills worsening kidney issues or renal failure or major episodes of bleeding. Admission and Anticipated Discharge Date Admission Date: January 21, 2025 Subjective Patient seen at bedside today He is awake and resting in bed on arrival No acute distress Reports some bladder discomfort Denies f/c/n/v Reports he is voiding without issue Review of Systems Review of Systems: All systems reviewed & are unremarkable except as noted in HPI & below Constitutional: as per Subjective / HPI Genitourinary: + as per Subjective / HPI Physical Exam Physical Exam: General: Alert in no acute distress. HEENT: Normocephalic Atraumatic. Inspection normal. Cranial Nerves 2-12 Grossly intact. Normal inspection of face. Normal inspection of neck. Psychologic: Normal affect. Respiratory: Nonlabored. No use of accessory muscles. No tachypnea or dyspnea. Cardiovascular: No tachycardia Skin: [place] and Dry. No rashes or visible lesions. Extremities/Lymphatics: No edema Abdomen: Soft Non-distended. No rebound or guarding. Constitutional: no acute distress Respiratory: no respiratory distress and no labored breathing Neurologic: awake Psychiatric: A+Ox3, euthymic affect Results & Data Vital Signs (Past 12 Hours) Vital Signs Temp Pulse Resp BP Pulse Ox O2 Del Method 01/23/25 07:28 36.7 C 73 18 171/81 H 93 Room Air PG Care Time/CCT Total # of Minutes Spent Total Time Spent with Patient: Total time spent is greater than 50% in coordination of care (as documented) at patient's floor/unit and/or counseling patient: Coding Level of Care Code 95363 SUB INP/OBS CARE 3/50MIN Diagnoses Ureterolithiasis N20.1 Renal colic on right side N23 MAGY (acute kidney injury) N17.9
[2025-01-23] MEDS: ACETAMINOPHEN 325 MG TAB PO PRN (13:42)
--- NOTE | 2025-01-23 16:53 | Nephrology Consultation ---
Date of Consultation January 23, 2025 Assessment & Plan (1) MAGY (acute kidney injury): Stage I presumed nonoliguric acute kidney injury on CKD 3A. Baseline creatinine 1.3-1.4. Presented with creatinine 2.3 which then came down to 2.2 yesterday but bounced up to 2.5 January 23. No IV contrast exposure, no significant hemodynamic instability, no electrolyte perturbations. no e/o infection or drug intolerance or inflammation >> leukocytosis (14K WBC) from admission resolved; no concerning s/s Cause unclear; pyridium however not appropriate in acute kidney injury and can cause acute kidney injury >>Stopped Pyridium; last dose yesterday Strict intake and output >> reviewed w/ RN; appreciate staff help w/ this ->> Urinalysis with microscopy ordered ->>cont nsaid avoidance ->> Will repeat basic metabolic panel now >>bladder scan now >> manage constipation >> defer to primary service to cont to work on this and suspect it's abd pain cause Agree with lowering gabapentin dose given MAGY >given his mild dypsnea will cut NS rate by 50% Daily bmp to continue Care coordinated w/ Dr Garcia re med change, recommendations above, labs and care emphases via TText; we are in agreement. (2) CKD (chronic kidney disease) stage 3, GFR 30-59 ml/min: Baseline creatinine 1.3-1.4. Daily basic metabolic panel Continue to hold metformin Care with gabapentin: On 300 mg twice daily as outpatient Continue to avoid other nephrotoxins including iodinated contrast (3) Kidney stones: Suggest outpatient nephro follow-up for metabolic workup if desired History of Present Illness Reason for Consultation: MAGY worsening after stent Requesting Physician: Dr Garcia Attending Physician: Ildefonso Garcia MD History of Present Illness 74 y/o M whom I'm asked to see for MAGY worsening despite stent was admitted w/ obstructive uropathy s/p R ureteral stent placement on 01/21. PMH HTN w/ lability enough to > syncope, multiple strokes (right frontal stroke in 2016, left parietal stroke in 2020, right frontoparietal stroke April 2024), hyperlipidemia, recurrent DVT on Eliquis, JACOB on CPAP, DM 2 on oral medications, prostatic hypertrophy follows w/ [facility]rology, urolithiasis, lumbar spinal stenosis, past tobacco abuse. Also w/ CKD3A w/ baseline creatinine 1.3- 1.4 over past year. Admitted here September 2024 for strokelike symptoms with aphasia; issues with hyperkalemia and hyponatremia during that admission. Admitted to the behavioral health unit with suicidal ideations late April 2024 after multiple medication adjustments. He presented to the emergency department on January 21 with 24 hours of right greater than left low back pain without nausea or vomiting. Imaging notable for right-sided hydronephrosis due to 1 cm proximal right ureteral kidney stone just beyond the UPJ. He underwent right ureteral stent placement later that day. His presenting creatinine was 2.3, down to 2.2 yesterday but up to 2.5 today. Intake and output are incomplete and therefore hard to track. Yesterday morning he was started on normal saline at 80 mL hourly which is ongoing and now starting his third liter. He has had several doses of Pyridium this admission. He denies chills or rash or decreased oral intake. Endorses some abdominal pain and constipation. Also ongoing low back pain particularly on the right side which he says is new in the last few days from before admission. Also some shortness of breath which he says is new. No edema no gross hematuria or pyuria or dysuria reported to me at least not today. He thinks he is voiding about the normal amount he usually does. No chest pain or palpitations. No orthopnea. Not using CPAP in the hospital. Allergies Allergy/AdvReac Type Severity Reaction Status Date / Time No Known Allergies Allergy Verified 01/20/25 23:22 Home Medications Medication Instructions Recorded Confirmed Type metformin 1,000 mg tablet 1,000 mg PO BIDM 02/12/21 01/20/25 History atorvastatin 40 mg tablet (Lipitor) 40 mg PO QAM 03/29/21 01/20/25 History finasteride 5 mg tablet 5 mg PO QAM 05/08/24 01/20/25 History docusate sodium 100 mg capsule 100 mg PO 4XWK 05/15/24 01/20/25 History (Stool Softener) sertraline 50 mg tablet 50 mg PO QAM 30 days #30 tabs 05/30/24 01/20/25 Rx acetaminophen 500 mg tablet 500 mg PO TID PRN Pain 10/22/24 01/20/25 History (Tylenol Extra Strength) aspirin 81 mg tablet,delayed 81 mg PO QAM 10/22/24 01/20/25 History release gabapentin 300 mg capsule 300 mg PO BID 10/22/24 01/20/25 History apixaban 5 mg tablet (Eliquis) 5 mg PO AMHS 01/20/25 01/20/25 History ondansetron HCl 4 mg tablet 4 mg PO Q6 PRN Nausea 01/20/25 01/20/25 History propranolol 10 mg tablet 5 mg PO AMHS 01/20/25 01/20/25 History Patient History Medical History (Updated 01/23/25 @ 17:07 by Stacey Velasquez MD, PhD) Diabetes mellitus, type 2 NIDDM Knee pain, right MAGY (acute kidney injury) Weakness Elevated troponin Anemia Stroke 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 ischemic stroke, residual mild weakness and short- term memory impairment Pulmonary embolism 1993- Eliquis Hydronephrosis with urinary obstruction due to ureteral calculus Hypertension Surgical History History of back surgery No hardware History of cystoscopy Cystoscopy, left retropyelogram, Left ureteral stent placement (03/30/21): LMA#4 at [facility] H/O colonoscopy History of tympanoplasty of right ear Status post appendectomy Family History Uncle Family history of diabetes mellitus Other Heart disease Social History Smoking Status: Former smoker Tobacco Type: Declines Second Hand Exposure: No; Do You Dip or Chew Tobacco: No; Hx Alcohol Use: No Hx Substance Use: No Preferred Language: Tamazight Communication Ability: Effective Press Tender Incendiary Grenade Required: No Beliefs That Will Affect Care: None marital status: / Current Living Situation: Other Current Living Situation Comment: friends current occupation: NOT WORKING How many Children do You have: 0 Feels Safe at Home: Yes Gender Identity: Transgender Male Assistive Devices: CPAP and Walker Review of Systems 2 Review of Systems: All systems reviewed & are unremarkable except as noted in HPI & below Physical Exam 2 Constitutional: well developed, well nourished, + frail appearing and cooperative; no acute distress Eyes: EOM intact bilaterally ENMT: Mouth: + dry oral mucous membranes Respiratory: normal respiratory effort Auscultation: + diminished lung sounds Cardiovascular: RRR, no murmur, no edema Gastrointestinal (Abdomen): Inspection/Auscultation: normal bowel sounds P ercussion/Palpation: + abdomen tender (Tender to moderate palpation left lower quadrant especially), + guarding (Slight) and abdomen soft; abdomen not rigid Musculoskeletal: Extremities: strength 5/5 throughout (But struggles to sit up in bed without assistance) Skin: no rashes, warm and dry Neurologic: saldaña, fluent although slightly delayed and simplified speech, no tremor Psychiatric: Orientation: alert and oriented x 3 Results & Data Vital Signs (Past 12 Hours) Vital Signs Temp Pulse Resp BP Pulse Ox O2 Del Method 01/23/25 15:27 36.9 C 70 16 157/87 H 95 Room Air 01/23/25 07:28 36.7 C 73 18 171/81 H 93 Room Air Laboratory Results 01/23/25 08:00 01/23/25 08:[address] no contrast Right-sided hydroureteronephrosis secondary to 1 cm proximal right ureteral calculus just beyond the right UPJ. Chest x-ray todayStable mild cardiomegaly without pulmonary vascular congestion. No effusion, consolidation, or pneumothorax. KUB stent position ok; moderate stool burden
[2025-01-23 18:21] LABS: Anion Gap 9.0 (3-11); Blood Urea Nitrogen 44.0 mg/dl (6-23); Calcium 8.5 mg/dl (8.6-10.3); Carbon Dioxide 23.0 mmol/L (21-32); Chloride 105.0 mmol/L (98-107); Creatinine Clr Calc Pharmacy 24.6 ml/min; Glucose 141.0 mg/dl (70-99(Fasting)); Potassium 4.8 mmol/L (3.5-5.1); Sodium 137.0 mmol/L (136-145)
[2025-01-23 19:01] LABS: Appearance Urine Cloudy (Clear); Bacteria Urine Automated None Seen (None Seen); Cast Urine Automated 0-2 /lpf (0-2); Epithelial Cell Urine Auto 0-2 /hpf (0-2); Glucose Urine UA Negative (Negative); RBC Urine Automated >20 /hpf (0-2); WBC Urine Automated 0-5 /hpf (0-5)
[2025-01-24 06:52] LABS: Hematocrit (blood only) 27.8 % (42.0-52.0); Hemoglobin 9.4 g/dl (14.0-18.0); Immature Granulocytes # (auto) 0.04 K/uL (0.01-0.20); Immature Granulocytes % (auto) 0.6 %; Mean Corpuscular Hemoglobin 29.7 pg (25.0-34.0); Mean Corpuscular Volume 87.7 fL (80.0-100.0); Platelet Count 188 K/uL (130-400); RDW Standard Deviation 46.3 fL (36.4-46.3); Red Blood Count 3.17 M/uL (4.70-6.10); White Blood Count 6.52 K/ul (4.8-10.8)
[2025-01-24 07:24] LABS: Anion Gap 6.0 (3-11); Blood Urea Nitrogen 43.0 mg/dl (6-23); Calcium 8.1 mg/dl (8.6-10.3); Carbon Dioxide 22.0 mmol/L (21-32); Chloride 108.0 mmol/L (98-107); Creatinine Clr Calc Pharmacy 26.1 ml/min; Glucose 150.0 mg/dl (70-99(Fasting)); Potassium 5.0 mmol/L (3.5-5.1); Sodium 136.0 mmol/L (136-145)
--- NOTE | 2025-01-24 09:43 | Ultrasound Report ---
RENAL ULTRASOUND HISTORY: Acute bilateral flank pain r/o hydronephrosis COMPARISON: CT abdomen and pelvis 01/20/2025 FINDINGS: Right kidney: 13.0 cm. 1 cm calculus of the superior pole right kidney redemonstrated. Mild persisten t hydronephrosis. Increased parenchymal echogenicity. Diffuse cortical thinning redemonstrated. Left kidney: 11.9 cm. No hydronephrosis. Diffuse cortical thinning redemonstrated with increased pare nchymal echogenicity. Bladder: Decompressed with wall thickening. The bilateral ureteral jets were not identified. Prostatomegaly. IMPRESSION: 1. Right nephrolithiasis with persistent hydronephrosis. 2. Evidence of chronic medical renal disease. 3. Prostamegaly with chronic outlet obstruction. ACT 112: Negative or not required by law. Electronically signed by: Horacio Ramirez M.D. 01/24/2025 9:42 AM
--- NOTE | 2025-01-24 10:29 | Hospitalist Progress Note ---
Date of Service January 24, 2025 Assessment & Plan (1) Ureterolithiasis: (2) MAGY (acute kidney injury): (3) Type 2 diabetes mellitus: Plan Plan: 1. Obstructive uropathy 2. Ureterolithiasis 3. MAGY Admission creatinine 2.33, downtrended to 2.68 on 01/23; today 2.53 Pt is s/p Cystoscopy Right Retrograde Pyelogram with radiographic interpretation and Right Stent Placement(Right) POD #3 Continue flomax, prn pyridium Nephrology consultation; appreciate reccs Renal US with R nephrolithiasis with persistent hydronephrosis. KUB ordered and pending results Discussed with Urology today; given elevated creatinine and evidence that stone will require treatment anyway in the near future; will make NPO after MN tonight for possible ESWL on 01/25 Bladder scan; PVR 133; has some intermittent incontinence (+) flatulance, (-) BM yet; bowel regimen ordered Hold Eliquis for pending OR S/W Montse Mendes [phone], who patient lives with to provide an update 4. T2DM: chronic, stable, continue ISS per protocol, a1c 6.7 in October. Stop Metformin; start Glipizide today given nephrotoxicity 5. Hx of recurrent DVT: Hold Eliquis for OR tomorrow 6. Hx of CVA: continue asa, statin, eliquis, risk factor reduction 7: Elevated BP reading: Labile Bp as an outpatient. BP has remained adequate off BP meds, but is elevated this a.m. at 180's; if continues, can restart amlodipine. 8. JACOB: CPAP QHS- ordered, but pt refused last night Disposition: Code Status: FULL CODE PCP: Celina DVT ppx: Teds and Scds I spent a total of 52 minutes coordinating, documenting and providing care for this patient excluding time spent in the performance of separately billed services or time spent by another provider/QHP. Admission and Anticipated Discharge Date Admission Date: January 21, 2025 Supervising Physician Co-Signing Physician Notes Attending Addendum: Case reviewed with the advanced practitioner. I have reviewed the advanced practitioner's documentation on the date of service referenced in note, and I agree with, and take responsibility for the plan of care. please refer to her notes for full details patient seen and examined, records reviewed by myself as well diagnoses and plan of care as per advanced practitioner's notes I spent a total of 25 minutes coordinating, documenting, and providing care for this patient, excluding time spent in the performance of separately billed services or time spent by another provider/QHP. Ildefonso Garcia MD Subjective patient sitting with his legs dangling at his bedside in no apparent distress. Patient complains of abdominal pain with radiation to left flank. Elevated BP this morning; resolved Tolerated breakfast well. patient denies headache, dizziness, chest pain, shortness of breath, swelling. Please see A/P for further details. Review of Systems Review of Systems: Neuro: (-) Falls, trauma, slurred speech HEENT: (-) CAMILO, dizziness, dysphagia, visual or auditory changes CV: (-) CP, palpitations, swelling Resp: (-) SOB GI: (-) appetite changes, N/V/D, bowel changes : (-) urinary changes Skin: (-) rashes Psych: (-) anxiety, depression Physical Exam Physical Exam: Neuro: AAOx4, possible intellect challenge, PERRLA, no aphagia, memory changes, CNII-XII grossly intact HEENT: head normocephalic, moist mucus membranes CV: S1/S2, (-) M/G/R, (-) edema, cap refill < 3 seconds Resp: Lungs CTA in all robret. On RA GI: Abdomen soft, tender left side of abdomen with radiation to left flank, (-) distention, Ax4 bowel sounds, (+) Left flank tenderness Musculoskeletal: 5/5 B/L UE strength, 5/5 B/L LE strength. No gait disturbance Skin: (-) rashes , (-) erythema. Psych: euthymic mood Results & Data Results & Data Vital Signs (Past 12 Hours) Vital Signs Temp Pulse Resp BP BP Pulse Ox O2 Del Method 01/24/25 08:23 36.7 C 72 16 194/91 H 183/102 H 94 Room Air Laboratory Results Short CBC 01/24/25 Range/Units : WBC 6.52 (4.8-10.8) K/ul Hgb 9.4 L (14.0-18.0) g/dl Hct 27.8 L (42.0-52.0) % Plt Count 188 (130-400) K/uL BMP 01/23/25 01/24/25 17:36 06: Sodium 137 136 Potassium 4.8 5.0 Chloride 105 108 H Carbon Dioxide 23 22 BUN 44 H 43 H Creatinine 2.68 H 2.53 H Glucose 141 H 150 H Calcium 8.5 L 8.1 L Urine 01/23/25 Range/Units 18:33 Urine Color Dark Yellow Urine Appearance Cloudy A (Clear) Urine pH 5.0 (4.5-7.5) Ur Specific [place] 1.013 (1.000-1.030) Urine Protein 1+ H (Negative) Urine Glucose (UA) Negative (Negative) Diagnostic Findings Renal Ultrasound 01/24/25 08:19 RENAL ULTRASOUND HISTORY: Acute bilateral flank pain r/o hydronephrosis COMPARISON: CT abdomen and pelvis 01/20/2025 FINDINGS: Right kidney: 13.0 cm. 1 cm calculus of the superior pole right kidney redemonstrated. Mild persistent hydronephrosis. Increased parenchymal echogenicity. Diffuse cortical thinning redemonstrated. Left kidney: 11.9 cm. No hydronephrosis. Diffuse cortical thinning redemonstrated with increased parenchymal echogenicity. Bladder: Decompressed with wall thickening. The bilateral ureteral jets were not identified. Prostatomegaly. IMPRESSION: 1. Right nephrolithiasis with persistent hydronephrosis. 2. Evidence of chronic medical renal disease. 3. Prostamegaly with chronic outlet obstruction. ACT 112: Negative or not required by law. Electronically signed by: Horacio Ramirez M.D. 01/24/2025 9:42 AM
--- NOTE | 2025-01-24 11:43 | Urology Progress Note ---
Date of Service January 24, 2025 Assessment & Plan (1) Ureterolithiasis: (2) Renal colic on right side: (3) MAGY (acute kidney injury): Plan 74yo male admitted with flank pain and MAGY secondary to an obstructing 1cm proximal right ureteral stone POD #3 s/p cystoscopy and right ureteral stent placement Mild issues with stent with urgency and frequency. Otherwise had tolerated the stent without severe issues. Patient has been dealing with hypertension issues. Has improved with medication management. Is being followed by the medical team and closely monitor. Patient does have multiple comorbidities. 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 Patient has known significant chronic kidney disease. Creatinine had significantly increased. Yesterday went to 2.6. This morning creatinine has remained elevated 2.5. Patient has not had significant improvement in creatinine since the stent placement. With increasing issues related to hypertension and the persistent MAGY nephrology was consulted. Patient is being monitored closely. Otherwise has not had severe increase in symptoms or bother. Discussed extensively with patient as well as with the hospitalist team different options moving forward. Did discuss possible other options for imaging. Discussed repeating the KUB to ensure that the stent has not moved since the imaging yesterday. Renal ultrasound does appear to have improved hydronephrosis but does still have some mild persistent hydronephrosis. Patient did have a large obstructing stone was likely going to require intervention for stone at some point. Patient had undergone cultures preoperatively and additionally had antibiotics. Discussed with patient different options moving forward. Discussed reimaging versus intervention. Discussed options for conservative measure and maximum expulsion medical therapy and symptom controlled. Discussed ESWL. Discussed Ureteroscopy with extraction and/or laser lithotripsy. Risks and benefits were discussed. Stone free rates were also discussed as well as possibility of multiple procedures. Ureteral stents were discussed as well as post-operative issues and pain management. All questions were answered. Reviewed options moving forward. At this point would recommend continued monitoring with repeat imaging with KUB. Will hold off on CT scan or more involved imaging. Agree with plans for hydration and supportive therapy. Did discuss options for MAGY including supportive care. Recommend continued hydration and close monitoring. Would recommend continued supportive care. Will continue to monitor. Call if any major development of fevers chills worsening kidney issues or renal failure or major episodes of bleeding. If creatinine remains elevated or issues worsen or progress may need to undergo intervention for stone with placement of new stent. Will reevaluate tomorrow with plans to possibly intervene if issues not improving Admission and Anticipated Discharge Date Admission Date: January 21, 2025 Subjective Postop from stent placement for obstruction issues. Patient has been tolerating without major issue. Patient's creatinine however started to go up yesterday. Has history of chronic kidney disease. Creatinine went up to 2.6. This morning went down to 2.53. Did not significantly improve with hydration. White count remained normal with current value at 6.52. Has noticed some frequency and urgency. Has not had severe pain in the back and flank. Does have occasional burning and irritation. No severe episodes or major changes. No new nausea or vomiting. Had tolerated anesthesia without major problems. Patient still has stone obstructed at the proximal ureter. Stent appears to be in good position. Had undergone KUB yesterday and renal ultrasound today. Patient has not experienced any major increase in pain. Did state that he is urinating fairly well without major issue. Review of Systems Review of Systems: All systems reviewed & are unremarkable except as noted in HPI & below Physical Exam Physical Exam: General: Alert in no acute distress. HEENT: Normocephalic Atraumatic. Inspection normal. Cranial Nerves 2-12 Grossly intact. Normal inspection of face. Normal inspection of neck. Psychologic: Normal affect. Respiratory: Nonlabored. No use of accessory muscles. No tachypnea or dyspnea. Cardiovascular: No tachycardia Skin: Dora and Dry. No rashes or visible lesions. Extremities/Lymphatics: No edema Abdomen: Soft Non-distended. No rebound or guarding. Results & Data Vital Signs (Past 12 Hours) Vital Signs Temp Pulse Resp BP BP Pulse Ox O2 Del Method 01/24/25 10:36 89 16 124/74 96 Room Air 01/24/25 08:23 36.7 C 72 16 194/91 H 183/102 H 94 Room Air PG Care Time/CCT Total # of Minutes Spent Total Time Spent with Patient: Total time spent is greater than 50% in coordination of care (as documented) at patient's floor/unit and/or counseling patient: Coding Level of Care Code 04466 SUB INP/OBS CARE 3/50MIN Diagnoses Ureterolithiasis N20.1 Renal colic on right side N23 MAGY (acute kidney injury) N17.9
[2025-01-24] MEDS: glipiZIDE 5 MG TAB PO SCH (12:31)
--- NOTE | 2025-01-24 12:32 | XRay Report ---
KUB HISTORY: Status post placement of a right ureteral stent hydronephrosis s/p stent placement COMPARISON: 01/23/2025 FINDINGS: A right ureteral stent is in satisfactory positioning. Moderate colonic fecal retention. N o renal calculi. No ureteral calculi identified. No pneumoperitoneum or pneumatosis. No fracture. IMPRESSION: Satisfactory positioning of the right ureteral stent. No ureteral calculi identified. ACT 112: Negative or not required by law. The above report was generated using voice recognition software. It may contain grammatical, syntax o r spelling errors. Electronically signed by: Horacio Ramirez M.D. 01/24/2025 12:30 PM
[2025-01-25 05:59] LABS: Hematocrit (blood only) 27.3 % (42.0-52.0); Hemoglobin 9.2 g/dl (14.0-18.0); Immature Granulocytes # (auto) 0.05 K/uL (0.01-0.20); Immature Granulocytes % (auto) 0.7 %; Mean Corpuscular Hemoglobin 29.5 pg (25.0-34.0); Mean Corpuscular Volume 87.5 fL (80.0-100.0); Platelet Count 204 K/uL (130-400); RDW Standard Deviation 46.6 fL (36.4-46.3); Red Blood Count 3.12 M/uL (4.70-6.10); White Blood Count 7.57 K/ul (4.8-10.8)
[2025-01-25 06:15] LABS: Anion Gap 5.0 (3-11); Blood Urea Nitrogen 42.0 mg/dl (6-23); Calcium 8.4 mg/dl (8.6-10.3); Carbon Dioxide 25.0 mmol/L (21-32); Chloride 106.0 mmol/L (98-107); Creatinine Clr Calc Pharmacy 27.9 ml/min; Glucose 125.0 mg/dl (70-99(Fasting)); Potassium 5.1 mmol/L (3.5-5.1); Sodium 136.0 mmol/L (136-145)
[2025-01-25] MEDS ORDERED: ONDANSETRON INJ 2 MG/ML 2 ML VIAL ONE (06:54)
[2025-01-25] MEDS ORDERED: PROPOFOL IV EMULSION 10 MG/ML 20 ML VIAL IV ONE (06:54)
[2025-01-25] MEDS ORDERED: DEXAMETHASONE SOD INJ 4 MG/ML VIAL ONE (06:54)
--- NOTE | 2025-01-25 07:19 | Urology Progress Note ---
Date of Service January 25, 2025 Assessment & Plan (1) Ureterolithiasis: (2) Renal colic on right side: (3) MAGY (acute kidney injury): Plan 74yo male admitted with flank pain and MAGY secondary to an obstructing 1cm proximal right ureteral stone POD #4 s/p cystoscopy and right ureteral stent placement Mild issues with stent with urgency and frequency. Otherwise had tolerated the stent without severe issues. Patient has been dealing with hypertension issues. Additionally has persistent MAGY which has only had minor improvements. Is being followed by the medical team and closely monitor. Patient does have multiple comorbidities. 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 Eliquis was held yesterday. Was made n.p.o. at midnight due to persistent issues. Patient has known chronic kidney disease with significant MAGY persisting after stent placement. Had gone up to creatinine of 2.6. This morning creatinine has decreased slightly but has remained elevated now at 2.37. Yesterday remained elevated 2.5. Has only had minor improvement since the stent placement. Continued to have issues with hypertension. Patient is being monitored closely. Had extensively discussed different options moving forward. Patient has a large obstructing stone. Had stent in position but continued to have issues. Had discussed possible intervention on stone as it was likely going to be necessary regardless due to large size and limited chance for passage. Patient had undergone repeat imaging. The stent appeared to be in good position but did still have mild persistent hydronephrosis. Patient had undergone cultures preoperatively and additionally had antibiotics. Had discussed possible repeat CT imaging versus intervention on stone. Patient's previous CT have been reviewed from admission. Patient had large obstructing stone in the proximal ureter. Additionally had multiple stones in the right kidney with 2 additional large stones in the right renal pelvis. Had extensively reviewed different options for treatment of stone versus continued supportive care and monitoring. Patient wished to proceed with intervention. Discussed options for conservative measure and maximum expulsion medical therapy and symptom controlled. Discussed ESWL. Discussed Ureteroscopy with extraction and/or laser lithotripsy. Risks and benefits were discussed. Stone free rates were also discussed as well as possibility of multiple procedures. Ureteral stents were discussed as well as post-operative issues and pain management. All questions were answered. Risks and benefits discussed at length for procedure. These include bleeding, infection, injury to surrounding tissues or organs, and risks associated with anesthesia. Patient states understanding and agrees to proceed. Will sign consent and proceed. Plan for cystoscopy with possible right ureteroscopy and stone treatment Admission and Anticipated Discharge Date Admission Date: January 21, 2025 Subjective Patient admitted with stone and discomfort. Patient had undergone stent placement on 625. Patient continues to have distant MAGY. Had been seen by nephrology. Has undergone hydration. Was still having occasional pain was tolerating stent otherwise Patient is afebrile. Has been undergoing supportive care with oral medications, IV medications, IV fluids, and oral intake. Has not had severe episode of bleeding. No major increase in pain. Had discussed different options for management. Patient was likely going to require intervention on stone at some point. Has not developed severe vomiting or other issues. Has not experienced fever or chills. Is tolerating fluids. Has noticed some frequency and urgency. Has not had severe pain in the back and flank. Does have occasional burning and irritation. No severe episodes or major changes. Patient does not believe the passed a stone. Has not passed a large amount of blood or debris that may be the stone. Imaging from the last couple days was reviewed including KUB and ultrasound. Additionally patient had CT scan from admission. Does show large obstructing stone in the proximal/mid ureter. With additional stones in the kidney including 2 similar size stones in the right upper and right lower pole. Review of Systems Review of Systems: All systems reviewed & are unremarkable except as noted in HPI & below Physical Exam Physical Exam: General: Alert in no acute distress. HEENT: Normocephalic Atraumatic. Inspection normal. Cranial Nerves 2-12 Grossly intact. Normal inspection of face. Normal inspection of neck. Psychologic: Normal affect. Respiratory: Nonlabored. No use of accessory muscles. No tachypnea or dyspnea. Cardiovascular: No tachycardia Skin: Biehle and Dry. No rashes or visible lesions. Extremities/Lymphatics: No edema Abdomen: Soft Non-distended. No rebound or guarding. Results & Data Vital Signs (Past 12 Hours) Vital Signs Temp Pulse Resp BP Pulse Ox O2 Del Method 01/24/25 20:22 36.7 C 64 18 178/75 H 93 Room Air PG Care Time/CCT Total # of Minutes Spent Total Time Spent with Patient: Total time spent is greater than 50% in coordination of care (as documented) at patient's floor/unit and/or counseling patient: Coding Level of Care Code 96846 SUB INP/OBS CARE 3/50MIN Diagnoses Ureterolithiasis N20.1 Renal colic on right side N23 MAGY (acute kidney injury) N17.9
--- NOTE | 2025-01-25 07:28 | Anesthesiology Consultation ---
Date of Service January 25, 2025 Assessment & Plan Chart Review Chart Review: Acceptable Risk for Surgery and Patient NOT seen in Pre Admission Testing History Surgery Operation Date: 01/21/25 10:35 Proposed Procedures p Cystoscopy Right Retrograde Pyelogram and Stent Placement - Keo Quevedo MD Operation Date: 01/25/25 07:30 Proposed Procedures p Cystoscopy, Right Stone - Curt Singh, Height/Weight Height: 5 ft 7 in Weight: 86.6 kg Allergies Allergy/AdvReac Type Severity Reaction Status Date / Time No Known Allergies Allergy Verified 01/20/25 23:22 Medications Home Medications Medication Instructions Recorded Confirmed Last Taken metformin 1,000 mg tablet 1,000 mg PO BIDM 02/12/21 01/20/25 10/22/24 08:00 atorvastatin 40 mg tablet (Lipitor) 40 mg PO QAM 03/29/21 01/20/25 10/22/24 finasteride 5 mg tablet 5 mg PO QAM 05/08/24 01/20/25 10/22/24 docusate sodium 100 mg capsule 100 mg PO [id number] 05/15/24 01/20/25 10/21/24 (Stool Softener) sertraline 50 mg tablet 50 mg PO QAM 30 days #30 tabs 05/30/24 01/20/25 10/22/24 acetaminophen 500 mg tablet 500 mg PO TID PRN Pain 10/22/24 01/20/25 Unknown (Tylenol Extra Strength) aspirin 81 mg tablet,delayed 81 mg PO QAM 10/22/24 01/20/25 10/22/24 release gabapentin 300 mg capsule 300 mg PO BID 10/22/24 01/20/25 Unknown apixaban 5 mg tablet (Eliquis) 5 mg PO AMHS 01/20/25 01/20/25 Unknown ondansetron HCl 4 mg tablet 4 mg PO Q6 PRN Nausea 01/20/25 01/20/25 Unknown propranolol 10 mg tablet 5 mg PO AMHS 01/20/25 01/20/25 Unknown Active Medications Generic Name Dose Route Start Last Admin Trade Name Freq PRN Reason Stop Dose Admin Acetaminophen 650 mg 01/23/25 13:12 01/24/25 02:14 Acetaminophen 325 Mg Tab PO 02/22/25 13:11 650 mg Q4H PRN Administration Mild-Mod Pain (Scale 1-6) Apixaban 5 mg 01/21/25 09:00 01/24/25 08:25 Apixaban 5 Mg Tablet PO 02/20/25 08:59 Not Given AMHS WILMER Aspirin 81 mg 01/21/25 09:00 01/24/25 08:24 Aspirin 81 Mg Ectab PO 02/20/25 08:59 81 mg QAM WILMER Administration Atorvastatin Calcium 40 mg 01/21/25 09:00 01/24/25 08:24 Atorvastatin 40 Mg Tab PO 02/20/25 08:59 40 mg QAM WILMER Administration Finasteride 5 mg 01/21/25 09:00 01/24/25 08:24 Finasteride 5 Mg Tab PO 02/20/25 08:59 5 mg QAM WILMER Administration Gabapentin 200 mg 01/21/25 09:00 01/24/25 20:30 Gabapentin 100 Mg Cap PO 02/20/25 08:59 200 mg BID WILMER Administration Glipizide 2.5 mg 01/24/25 11:30 01/24/25 12:31 Glipizide 5 Mg Tab PO 02/23/25 11:29 2.5 mg QDB WILMER Administration Insulin Aspart 0 units 01/21/25 16:30 01/24/25 20:29 Insulin Aspart Per Unit Charge SC 02/20/25 16:29 1 units ACHS WILMER Administration Oxycodone HCl 5 - 10 mg 01/23/25 13:13 01/24/25 04:59 Oxycodone Hcl Ir 5 Mg Tab (Immediate Release) PO 02/04/25 01:14 10 mg QID PRN Administration Severe Pain (Scale 7, 8, 9,10) Polyethylene Glycol 17 gm 01/23/25 11:45 01/24/25 08:35 Polyethylene (Miralax) 17 Gm Pack PO 02/22/25 11:44 17 gm DAILY WILMER Administration Propranolol HCl 5 mg 01/21/25 09:00 01/24/25 20:30 Propranolol Hcl 10 Mg Tab PO 02/20/25 08:59 5 mg AMHS WILMER Administration Sertraline HCl 50 mg 01/21/25 09:00 01/24/25 08:24 Sertraline Hcl 50 Mg Tablet PO 02/20/25 08:59 50 mg QAM WILMER Administration Tamsulosin HCl 0.4 mg 01/22/25 09:00 01/24/25 08:24 Tamsulosin Hcl 0.4 Mg Cap PO 02/21/25 08:59 0.4 mg QAM WILMER Administration NPO Date Last Intake of Fluids: 01/20/25 Time Last Intake of Fluids: 21:00 Last Intake of Fluids Comment: Midnight Date Last Intake of Solids: 01/19/25 Time Last Intake of Solids: 18:00 Last Intake of Solids Comment: Midnight Past Medical History Medical History Diabetes mellitus, type 2 NIDDM Knee pain, right MAGY (acute kidney injury) Weakness Elevated troponin Anemia Stroke 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 ischemic stroke, residual mild weakness and short- term memory impairment Pulmonary embolism 1993- Eliquis Hydronephrosis with urinary obstruction due to ureteral calculus Hypertension Past Family History Family History Uncle Family history of diabetes mellitus Other Heart disease Past Surgical History Surgical History History of back surgery No hardware History of cystoscopy Cystoscopy, left retropyelogram, Left ureteral stent placement (03/30/21): LMA#4 at [facility] H/O colonoscopy History of tympanoplasty of right ear Status post appendectomy Social History Smoking Status: Former smoker tobacco type: cigarettes Do You Dip or Chew Tobacco: No Hx Alcohol Use: No Hx Substance Use: No substance use type: does not use Physical Exam Vital Signs Last Vital Signs Temp 36.7 C 01/24/25 20:22 Pulse 64 01/24/25 20:22 Resp 18 01/24/25 20:22 BP 178/75 H 01/24/25 20:22 Pulse Ox 93 01/24/25 20:22 O2 Del Method Room Air 01/24/25 20:22 O2 Flow Rate 4 01/21/25 13:16 Testing Laboratory Results 01/25/25 05:39 01/25/25 05:39 APTT 32 Seconds (21-31) H 01/21/25 06:40 Urine Color Dark Yellow 01/23/25 18:33 Urine Appearance Cloudy (Clear) A 01/23/25 18:33 Urine pH 5.0 (4.5-7.5) 01/23/25 18:33 Ur Specific [place] 1.013 (1.000-1.030) 01/23/25 18:33 Urine Protein 1+ (Negative) H 01/23/25 18:33 Urine Glucose (UA) Negative (Negative) 01/23/25 18:33 Urine Ketones Negative (Negative) 01/23/25 18:33 Urine Nitrite Positive (Negative) A 01/23/25 18:33 Ur Leukocyte Esterase Trace (Negative) H 01/23/25 18:33 Urine WBC (Auto) 0-5 /hpf (0-5) 01/23/25 18:33 Urine RBC (Auto) >20 /hpf (0-2) H 01/23/25 18:33 U Hyaline Cast (Auto) 0-2 /lpf (0-2) 01/23/25 18:33 U Epithel Cells (Auto) 0-2 /hpf (0-2) 01/23/25 18:33 Urine Bacteria (Auto) None Seen (None Seen) 01/23/25 18:33 Urine RBC >20 /hpf (0-2) H 01/22/25 12:15 Urine WBC 0-5 /hpf (0-5) 01/22/25 12:15 Ur Epithelial Cells 0-2 /hpf (0-2) 01/22/25 12:15 01/24/25 20:20 POC Glucose 152 H Electrocardiogram Date: 10/24/24 Findings: + SB @ (55) Echocardiogram Date: 10/23/24 LV Function: normal Valvular Disease: + no significant valvular disease
[2025-01-25] MEDS ORDERED: ATROPINE SULFATE 0.1 MG/ML 10ML SYR IV PRN (07:35)
[2025-01-25] MEDS ORDERED: ONDANSETRON INJ 2 MG/ML 2 ML VIAL IV PRN (07:35)
[2025-01-25] MEDS ORDERED: HYDROmorphone INJ 1 MG/ML SYRINGE IV PRN (07:35)
[2025-01-25] MEDS ORDERED: ePHEDrine sulfate 50 MG/5 ML SYR ONE (07:48)
[2025-01-25] MEDS ORDERED: ceFAZolin 330 MG/ML 1 GM VIAL ONE (07:55)
--- NOTE | 2025-01-25 08:32 | Hospitalist Progress Note ---
Date of Service January 25, 2025 Assessment & Plan (1) Ureterolithiasis: (2) MAGY (acute kidney injury): (3) Type 2 diabetes mellitus: Plan Plan: 1. Obstructive uropathy 2. Ureterolithiasis 3. MAGY Admission creatinine 2.33, downtrended to 2.68 on 01/23; today 2.37 Pt is s/p Cystoscopy Right Retrograde Pyelogram with radiographic interpretation and Right Stent Placement(Right) POD #4 Underwent repeat cysto today 01/25 (POD #0); basket retrieval of stone, stent was in poor position with proximal ureter obstruction; reinserted. Birch catheter in place due to residual clots. Continue flomax, prn pyridium Birch irrigation orders placed Gentle IVF @ 50mL/hour x 1 bag; discontinue when resumed diet; advancing as addison. (+) flatulance, (-) BM yet; bowel regimen ordered Hold Eliquis d/t post op' hematuria. Teds and SCDs for now given history of CVA Catheter expected to remain 1-2 days Stent to remain approxaimately 2 weeks S/W Montse Mendes [phone], who patient lives with to provide an update post operatively 4. T2DM: chronic, stable, continue ISS per protocol, a1c 6.7 in October. Stop Metformin; Glipizide started on 01/24 given nephrotoxicity 5. Hx of recurrent DVT: Hold Eliquis with hematuria 6. Hx of CVA: continue asa, statin, eliquis, risk factor reduction 7: Elevated BP reading: Labile Bp as an outpatient. BP has remained adequate off BP meds, but is elevated this a.m. at 180's; if continues, can restart amlodipine. 8. JACOB: CPAP QHS- ordered, but pt refused last night Disposition: Code Status: FULL CODE PCP: Celina DVT ppx: Teds and Scds I spent a total of 54 minutes coordinating, documenting and providing care for this patient excluding time spent in the performance of separately billed services or time spent by another provider/QHP. Admission and Anticipated Discharge Date Admission Date: January 21, 2025 Supervising Physician Co-Signing Physician Notes Attending Addendum: Case reviewed with the advanced practitioner. I have reviewed the advanced practitioner's documentation on the date of service referenced in note, and I agree with, and take responsibility for the plan of care. please refer to her notes for full details diagnoses and plan of care as per advanced practitioner's notes I spent a total of 25 minutes coordinating, documenting, and providing care for this patient, excluding time spent in the performance of separately billed services or time spent by another provider/QHP. Ildefonso Garcia MD Subjective pt post op; lying in hospital bed; groggy, but able to answer questions appropriately. Irregular nodular growth within the prostate. Large bladder capacity. Moderate clot in the base of the bladder. Clot was irrigated and cleared. Mild inflammation around the bladder neck and within the bladder. Stone found severely obstructing the proximal ureter with stent in poor position with possible limited drainage. Additionally wires were unable to pass into the renal pelvis. Stone was able to be displaced and wires then able to advance into the renal pelvis. Numerous large stones in the right kidney with moderate amount of debris. Stones destroyed to dust and small fragments and larger fragments removed. Review of Systems Review of Systems: Neuro: (-) Falls, trauma, slurred speech HEENT: (-) CAMILO, dizziness, dysphagia, visual or auditory changes CV: (-) CP, palpitations, swelling Resp: (-) SOB GI: (-) appetite changes, N/V/D, bowel changes : (-) urinary changes Skin: (-) rashes Psych: (-) anxiety, depression Physical Exam Physical Exam: Neuro: AAOx4, possible intellect challenge, PERRLA, no aphagia, memory changes, CNII-XII grossly intact HEENT: head normocephalic, moist mucus membranes CV: S1/S2, (-) M/G/R, (-) edema, cap refill < 3 seconds Resp: Lungs CTA in all robert. On RA GI: Abdomen soft, tender left side of abdomen with radiation to left flank, (-) distention, Ax4 bowel sounds, (+) Left flank tenderness Musculoskeletal: 5/5 B/L UE strength, 5/5 B/L LE strength. No gait disturbance Skin: (-) rashes , (-) erythema. Psych: euthymic mood Results & Data Results & Data Laboratory Results Short CBC 01/25/25 Range/Units 05:39 WBC 7.57 (4.8-10.8) K/ul Hgb 9.2 L (14.0-18.0) g/dl Hct 27.3 L (42.0-52.0) % Plt Count 204 (130-400) K/uL BMP 01/25/25 05:39 Sodium 136 Potassium 5.1 Chloride 106 Carbon Dioxide 25 BUN 42 H Creatinine 2.37 H Glucose 125 H Calcium 8.4 L Diagnostic Findings Retrograde Pyelogram 01/25/25 07:00 FL retrograde includes kub CLINICAL HISTORY: CYSTO RT SIDE COMPARISON STUDY: KUB 01/24/2025 FLUOROSCOPY TIME: 79.2 seconds FLUOROSCOPY IMAGES: 8 EXPOSURE DOSE: 28.15 mGy FINDINGS: Status post placement of a right ureteral stent, which appears to be in satisfactory positioning. Mild right-sided hydronephrosis. Catheter projects over the urinary bladder. No definite ureteral calculi are seen on these images. IMPRESSION: Fluoroscopic assistance as above ACT 112: Negative or not required by law. Electronically signed by: Horacio Ramirez M.D. 01/25/2025 9:35 AM
[2025-01-25] MEDS: DIATRIZOATE MEGLUMINE 30% 100ML VIAL INSTIL ONE (08:35)
[2025-01-25 09:13] LABS: Iron 22.0 mcg/dl (35-175); Total Iron Binding Cap Calc 281.0 mcg/dl (250-450); Transferrin 201.0 mg/dl (200-360); Transferrin (FE) Percent Satur 8.0 % (20-50)
--- NOTE | 2025-01-25 09:15 | Operative Report ---
PG Post Operative Report Pre & Post Diagnosis Operation Date: 01/25/25 07:30 Pre-Op Diagnosis: Ureterolithiasis; Renal colic on right side; acute kidney injury Post-Op Diagnosis: Ureterolithiasis; Renal colic on right side; acute kidney injury I identified the patient and participated in the time-out.: Yes Procedure Operation Date: 01/25/25 07:30 Actual Procedures Cystoscopy with clot evacuation. Right ureteral dilation, laser lithotripsy, basket extraction of stone, retrograde pyelogram, ureteral stent exchange -Right(Right) - Curt Singh DO Surgeon Curt Singh, II, DO [employer] None Estimated Blood Loss 1 Findings See Below Irregular nodular growth within the prostate. Large bladder capacity. Moderate clot in the base of the bladder. Clot was irrigated and cleared. Mild inflammation around the bladder neck and within the bladder. Stone found severely obstructing the proximal ureter with stent in poor position with possible limited drainage. Additionally wires were unable to pass into the renal pelvis. Stone was able to be displaced and wires then able to advance into the renal pelvis. Numerous large stones in the right kidney with moderate amount of debris. Stones destroyed to dust and small fragments and larger fragments removed. Specimens Stone Fragments -right ureter Drains 20 K[place]z coud 6 Fr Multilength Anesthesia Type MAC Complications none Disposition Disposition: Recovery Room Indications Patient with bothersome stones. Risks and benefits discussed at length. Description of Procedure Patient was consented and brought back to the operating room. Patient was placed under anesthesia in the supine position and moved to the dorsal lithotomy posit ion. Patient was prepped and draped in the regular sterile fashion. A time out was completed identifying the correct patient and procedure. A 30degree Cystoscope was placed into the bladder and the entire bladder was examined. The UO's were identified. The stent on the right side was assessed. There was a large amount of clotted blood products in the base of the bladder. The clot appeared to be involving portions of the stent and possibly obstructing the ureter further. Extensive evacuation and irrigation was completed to clear all the blood clot from the bladder. The prostate was found to be enlarged and nodular. It did appear to have signs of obstruction. The bladder capacity was large. The stent was able to be grasped and partially removed. A wire was placed. The wire poorly advanced. Manipulation was necessary in order to try to pass it further. The stent did not appear to be placed in good position possibly displaced due to the severely obstructing stone. The stent was then completely removed. The UO was cannulized with a catheter and a retrograde pyelogram was completed. A second wire was then placed. A ureteral access sheath. The flexible ureteroscope was taken into the ureter. The stone was found to be severely obstructing. The wires did not appear to advance well past the stone due to the severe obstruction. A laser was utilized to break the portion of the stone leading into the obstruction. This freed the stone and allowed it to be displaced backwards. Once the stone was displaced back to the renal pelvis both wires were able to advance into the renal pelvis and found to be in good position. A moderate amount of debris and old blood appearing debris was noted to be draining. The area of impaction was found to have a area of stricture. This was dilated. The ureteral access sheath was then replaced in order to bypass the area of severe obstruction. The entire ureter and renal pelvis were examined. The stones were identified. The debris from the renal pelvis was flushed out. A laser fiber was selected and the stones were pulverized to dust and small fragments. Extensive fragmentation was completed. Larger fragments were grasped and removed and sent for analysis. The entire area was once again examined. No residual large fragments or areas of concern were noted. The scope was slowly removed with the wire left in place. Contrast was placed through the scope for a pyelogram to assist in stent placement. The entire ureter was examined as the scope was slowly removed. No significant injury or area of concern was noted in the ureter. There was significant edematous changes in the proximal and mid ureter likely due to the obstructing stone and inflammation from stent. No obstructions or other areas of concern were noted. With the wire in place, a 6 Fr Double J stent was placed. It was confirmed with fluoroscopy. With the stent in place, the bladder was emptied. The scope was removed. Due to the signs of possible obstruction from the prostate as well as the mild amount of residual clot in the base of the bladder was decided to place a catheter. The patient was cleaned, aroused from anesthesia, and transferred to the pacu in stable condition having tolerated the procedure well with no complications. I was present and participated in all aspects of the procedure. The patient will be monitored in the PACU until transferred. Can likely remove catheter in 1 to 2 days. Will plan to maintain stent for approximately 2 weeks. Will have patient return for follow-up. I attest to the content of the Intraoperative Record and any orders documented therein. Any exceptions are noted below.
--- NOTE | 2025-01-25 09:25 | Anesthesiology Progress Note ---
Date of Service January 25, 2025 Anesthesia Post Procedure Vital Signs Vital Signs: Temp Pulse Pulse Resp BP Pulse Ox O2 Del Method 01/25/25 09:20 64 16 168/88 H 97 Nasal Cannula 01/25/25 09:10 66 15 175/86 H 96 Nasal Cannula 01/25/25 09:04 36.1 C L 69 15 166/85 H 92 Nasal Cannula 01/24/25 20:22 36.7 C 64 18 178/75 H 93 Room Air 01/24/25 13:47 36.8 C 70 16 161/79 H 96 Room Air 01/24/25 10:36 89 16 124/74 96 Room Air O2 Flow Rate 01/25/25 09:20 2 01/25/25 09:10 3 01/25/25 09:04 3 01/24/25 20:22 01/24/25 13:47 01/24/25 10:36 Pain Intensity Abdomen: Pain Intensity: 6 Transfer of Care Handoff Completed per policy Notes Mental Status: alert / awake / arousable and participated in evaluation Patient Amnestic to Procedure: Yes Nausea / Vomiting: adequately controlled Pain: adequately controlled Airway Patency, RR, SpO2: stable & adequate BP & HR: stable & adequate Hydration State: stable & adequate Anesthetic Complications: no major complications apparent and Pt Satisfied with anesthetic care
[2025-01-25 09:33] LABS: Ferritin 86.8 ng/ml (8-388)
--- NOTE | 2025-01-25 09:37 | Fluoroscopy Report ---
FL retrograde includes kub CLINICAL HISTORY: CYSTO RT SIDE COMPARISON STUDY: KUB 01/24/2025 FLUOROSCOPY TIME: 79.2 seconds FLUOROSCOPY IMAGES: 8 EXPOSURE DOSE: 28.15 mGy FINDINGS: Status post placement of a right ureteral stent, which appears to be in satisfactory positi oning. Mild right-sided hydronephrosis. Catheter projects over the urinary bladder. No definite urete ral calculi are seen on these images. IMPRESSION: Fluoroscopic assistance as above ACT 112: Negative or not required by law. Electronically signed by: Horacio Ramirez M.D. 01/25/2025 9:35 AM
[2025-01-25 09:57] LABS: Folate (Folic Acid),Ser orPlas > 22.30 ng/ml (>5.38)
[2025-01-25 09:58] LABS: Vitamin B12 234 pg/ml (180-914)
[2025-01-25 10:54] VITALS: RESP 16
[2025-01-25] MEDS: SODIUM CHLORIDE 0.9% 500 ML IV SCH (11:30)
--- NOTE | 2025-01-25 13:22 | Nephrology Progress Note ---
Date of Service January 25, 2025 Assessment & Plan (1) MAGY (acute kidney injury): Plan: persistent Stage I presumed nonoliguric acute kidney injury on CKD 3A. Baseline creatinine 1.3-1.4. Presented with creatinine 2.3 which then came down to 2.2 yesterday but bounced up to 2.7 January 23, down to 2.3 today. No IV contrast exposure, no significant hemodynamic instability, no electrolyte perturbations. no e/o infection or drug intolerance or inflammation >> leukocytosis (14K WBC) from admission resolved; no concerning s/s. UA 01/23 when creatinine worsened not suggestive of new/unexpected pathology. bladder scan negative 01/24 persistent MAGY possibly from other stone addressed / gordon lithotripsy/stent exch procedure 01/25; pyridium however not appropriate in acute kidney injury and can cause acute kidney injury >>Stopped Pyridium; last dose approx 01/22 Strict intake and output >appreciate staff help w/ this ->>cont nsaid avoidance >>getting 1/2 L NS per primary service >> manage constipation and monitor for abd pain Agree with lowering gabapentin dose given MAGY Daily bmp to continue Care coordinated w/ [employer] Bijal re med change, expected creat course and care emphases via TText; we are in agreement. (2) CKD (chronic kidney disease) stage 3, GFR 30-59 ml/min: Plan: Baseline creatinine 1.3-1.4. Daily basic metabolic panel Continue to hold metformin Care with gabapentin: On 300 mg twice daily as outpatient Continue to avoid other nephrotoxins including iodinated contrast (3) Kidney stones: Plan: Suggest outpatient nephro follow-up for metabolic workup if desired Admission and Anticipated Discharge Date Admission Date: January 21, 2025 Subjective This a.m. went back to OR for clot evacuation, right ureteral stent exchange and laser lithotripsy with basket extraction of stone; still pretty tired from procedure > no sob, no uncontrolled pain, no n/v Review of Systems 2 Review of Systems: All systems reviewed & are unremarkable except as noted in Subjective Physical Exam 2 Constitutional: well developed, well nourished, + frail appearing and cooperative; no acute distress Eyes: EOM intact bilaterally ENMT: Mouth: + dry oral mucous membranes Respiratory: normal respiratory effort Auscultation: + diminished lung sounds Cardiovascular: RRR, no murmur, no edema Gastrointestinal (Abdomen): Inspection/Auscultation: normal bowel sounds P ercussion/Palpation: abdomen soft Skin: no rashes, warm and dry Psychiatric: Orientation: alert and oriented x 3 Results & Data Vital Signs (Past 12 Hours) Vital Signs Temp Pulse Pulse Resp BP BP Pulse Ox 01/25/25 12:50 36.6 C 60 16 142/87 H 98 01/25/25 11:49 36.4 C L 55 L 16 172/84 H 99 01/25/25 10:52 36.3 C L 62 16 173/84 H 98 01/25/25 10:15 36.5 C 59 L 15 184/88 H 98 01/25/25 09:50 36.5 C 59 L 15 177/87 H 97 01/25/25 09:38 60 14 167/87 H 97 01/25/25 09:30 36.5 C 62 15 170/86 H 94 01/25/25 09:20 64 16 168/88 H 97 01/25/25 09:10 66 15 175/86 H 96 01/25/25 09:04 36.1 C L 69 15 166/85 H 92 O2 Del Method O2 Flow Rate 01/25/25 12:50 Nasal Cannula 2 01/25/25 11:49 Nasal Cannula 2 01/25/25 10:52 Nasal Cannula 2 01/25/25 10:15 Nasal Cannula 2 01/25/25 09:50 Nasal Cannula 2 01/25/25 09:38 Nasal Cannula 2 01/25/25 09:30 Nasal Cannula 2 01/25/25 09:20 Nasal Cannula 2 01/25/25 09:10 Nasal Cannula 3 01/25/25 09:04 Nasal Cannula 3 Laboratory Results 01/25/25 05:39 01/25/25 05:39
[2025-01-26 06:24] LABS: Hematocrit (blood only) 28.7 % (42.0-52.0); Hemoglobin 9.4 g/dl (14.0-18.0); Mean Corpuscular Hemoglobin 28.7 pg (25.0-34.0); Mean Corpuscular Volume 87.8 fL (80.0-100.0); Platelet Count 212 K/uL (130-400); RDW Standard Deviation 46.4 fL (36.4-46.3); Red Blood Count 3.27 M/uL (4.70-6.10); White Blood Count 8.58 K/ul (4.8-10.8)
[2025-01-26 06:42] LABS: Anion Gap 8.0 (3-11); Blood Urea Nitrogen 37.0 mg/dl (6-23); Calcium 8.2 mg/dl (8.6-10.3); Carbon Dioxide 23.0 mmol/L (21-32); Chloride 107.0 mmol/L (98-107); Creatinine Clr Calc Pharmacy 38.2 ml/min; Glucose 150.0 mg/dl (70-99(Fasting)); Potassium 4.7 mmol/L (3.5-5.1); Sodium 138.0 mmol/L (136-145)
--- NOTE | 2025-01-26 10:12 | Nephrology Progress Note ---
Date of Service January 26, 2025 Assessment & Plan Admission and Anticipated Discharge Date Admission Date: January 21, 2025 Subjective Assessment & Plan (1) MAGY (acute kidney injury): Plan: persistent Stage I presumed nonoliguric acute kidney injury on CKD 3A. Baseline creatinine 1.3-1.4. Presented with creatinine 2.3 which then came down to 2.2 yesterday but bounced up to 2.7 January 23, down to 2.3 No IV contrast exposure, no significant hemodynamic instability, no electrolyte perturbations. no e/o infection or drug intolerance or inflammation >> leukocytosis (14K WBC) from admission resolved; no concerning s/s. UA 01/23 when creatinine worsened not suggestive of new/unexpected pathology. bladder scan negative 01/24 persistent MAGY possibly from other stone addressed / gordon lithotripsy/stent exch procedure 01/25 Stopped Pyridium; last dose approx 01/22 Strict intake and output >appreciate staff help w/ this Overnight creat did come down nicely to 1.7 ( baseline is 1.4) cont nsaid avoidance Agree with lowering gabapentin dose given MAGY Daily bmp to continue BP is fine. No need of further iv fluid. expect further improvement remove Birch and ensure good urine without the Birch catheter if renal labs stable and no issues with urination can be discharged tomorrow (2) CKD (chronic kidney disease) stage 3, GFR 30-59 ml/min: Plan: Baseline creatinine 1.3-1.4. Daily basic metabolic panel Continue to hold metformin Continue to avoid other nephrotoxins including iodinated contrast (3) Kidney stones: Plan: Suggest outpatient nephro follow-up for metabolic workup if desired Subjective yesterday went to OR for clot evacuation, right ureteral stent exchange and laser lithotripsy with basket extraction of stone. Creat improved overnight with good urine output. no sob, no uncontrolled pain, no n/v. still has Birch Review of Systems Review of Systems: All systems reviewed & are unremarkable except as noted in Subjective Physical Exam Constitutional: well developed, well nourished, + frail appearing and cooperative; no acute distress Eyes: EOM intact bilaterally ENMT: Mouth: + dry oral mucous membranes Respiratory: normal respiratory effort Auscultation: + diminished lung sounds Cardiovascular: RRR, no murmur, no edema Gastrointestinal (Abdomen): Inspection/Auscultation: normal bowel sounds Percussion/Palpation: abdomen soft Skin: no rashes, warm and dry Psychiatric: Orientation: alert and oriented x 3 Results & Data Vital Signs (Past 12 Hours) Vital Signs Temp Pulse Resp BP Pulse Ox O2 Del Method 01/26/25 07:20 36.8 C 64 16 147/62 H 97 Room Air 01/26/25 04:02 36.7 C 57 L 16 155/97 H 96 Room Air 01/25/25 23:02 36.8 C 60 16 145/69 H 96 Room Air
--- NOTE | 2025-01-26 11:08 | Urology Progress Note ---
Date of Service January 26, 2025 Assessment & Plan (1) Ureterolithiasis: (2) MAGY (acute kidney injury): Plan: - Pt POD#1 s/p Cystoscopy with clot evacuation. Right ureteral dilation, laser lithotripsy, basket extraction of stone, retrograde pyelogram, right ureteral stent exchange - Doing well, progressing as expected - Afebrile, hemodynamically stable - Lab work reviewed - creatinine improved to 1.73, WBC 8.58, hemoglobin 9.4 - Tolerating right ureteral stent with minimal bother - Birch draining appropriately w/ blood-tinged urine which can be expected with ureteral stent - Can remove catheter for void trial today or tomorrow depending on discharge planning, monitor for void - Okay to d/c from perspective when medically stable - Plan to maintain right ureteral stent for approximately 2 weeks - Expected clinical course reviewed, all questions answered - Will arrange outpatient follow-up with our service for stent removal and ongoing management Admission and Anticipated Discharge Date Admission Date: January 21, 2025 Subjective Patient seen and examined at bedside this morning No acute issues overnight Birch intact Reports some discomfort from the catheter at his meatus No fever or chills Review of Systems Constitutional: as per Subjective / HPI Genitourinary: + as per Subjective / HPI Physical Exam Constitutional: no acute distress Respiratory: normal respiratory effort; no respiratory distress and no labored breathing Musculoskeletal: Head/Neck/Chest: normocephalic Neurologic: moves all extremities and awake Psychiatric: Orientation: alert and oriented x 3 Genitourinary: Birch draining blood tinged urine Results & Data Vital Signs (Past 12 Hours) Vital Signs Temp Pulse Resp BP Pulse Ox O2 Del Method 01/26/25 07:20 36.8 C 64 16 147/62 H 97 Room Air 01/26/25 04:02 36.7 C 57 L 16 155/97 H 96 Room Air PG Care Time/CCT Total # of Minutes Spent Total Time Spent with Patient: Total time spent is greater than 50% in coordination of care (as documented) at patient's floor/unit and/or counseling patient: Coding Level of Care Code 72623 SUB INP/OBS CARE 08/23MIN Diagnoses Ureterolithiasis N20.1 MAGY (acute kidney injury) N17.9
--- NOTE | 2025-01-26 12:36 | Hospitalist Progress Note ---
Date of Service January 26, 2025 Assessment & Plan (1) Ureterolithiasis: (2) MAGY (acute kidney injury): (3) Type 2 diabetes mellitus: Plan 1. Obstructive uropathy 2. Ureterolithiasis Pt is s/p Cystoscopy Right Retrograde Pyelogram with radiographic interpretation and Right Stent Placement(Right) on 01/21 POD#1 repeat cysto today 01/25 due to worsening Cr - Cystoscopy with clot evacuation. Right ureteral dilation, laser lithotripsy, basket extraction of stone, retrograde pyelogram, right ureteral stent exchange Remains afebrile, hemodynamically stable with improving Cr Per urology, blood tinged urine output as expected post stent, recommend void t rial, okay to dc from urologic perspective once stable and f/u in clinic in 2 weeks for stent removal Holding Eliquis for now 2/2 post-op hematuria. Teds and SCDs for now given history of CVA 3. MAGY Admission creatinine 2.33 but remained elevated after initial urologic procedure. Cr has improved 2.37 to 1.73 after procedure on 01/25 Baseline Cr 1.4 Per nephrology, feel persistent MAGY from other stone addressed with 2nd urologic procedure completed yesterday Stopped Pyridium; last dose approx 01/22 Strict I&Os, lowered gabapentin dose given MAGY, okay for dc tomorrow if renal labs stable 4. T2DM: chronic, stable, continue ISS per protocol, a1c 6.7 in October. Stop Metformin; Glipizide started on 01/24 given nephrotoxicity 5. Hx of recurrent DVT: Hold Eliquis with hematuria 6. Hx of CVA: continue asa, statin, eliquis, risk factor reduction 7: Elevated BP reading: Labile BP as an outpatient. BP elevated during admission- optimize pain control, resume home amlodipine tomorrow if needed 8. JACOB: CPAP QHS- ordered, but pt refused last night Disposition: Code Status: FULL CODE PCP: Celina DVT ppx: Teds and Scds Care coordinated with Dr. Garcia I spent a total of 55 minutes coordinating, documenting and providing care for this patient excluding time spent in the performance of separately billed services or time spent by another provider/QHP. Admission and Anticipated Discharge Date Admission Date: January 21, 2025 Subjective Seen and examined in 376-1. Feeling okay overnight with some improvement to abdominal/flank TTP. Still with suprapubic pain radiating to groin, exacerbated with movement. No F/C, CP, SOB, N/V, diarrhea. Last bowel movement 3 days ago. Review of Systems Review of Systems: At least ten systems reviewed and negative except as noted in the HPI. Physical Exam Physical Exam: Gen: WD/WN, NAD, resting in bed comfortably, A&Ox3 HEENT: Normocephalic, atraumatic, dry mucous membranes of oropharynx Lung: Clear to Auscultation bilaterally Heart: Regular rate, regular rhythm Abdomen: Soft, NT, ND +BS x 4 : Birch with blood tinged urine Extremities: no edema Skin: Warm, no rash Results & Data Results & Data Vital Signs (Past 12 Hours) Vital Signs Temp Pulse Resp BP Pulse Ox O2 Del Method 01/26/25 07:20 36.8 C 64 16 147/62 H 97 Room Air 01/26/25 04:02 36.7 C 57 L 16 155/97 H 96 Room Air Laboratory Results Short CBC 01/26/25 Range/Units 06:01 WBC 8.58 (4.8-10.8) K/ul Hgb 9.4 L (14.0-18.0) g/dl Hct 28.7 L (42.0-52.0) % Plt Count 212 (130-400) K/uL BMP 01/26/25 06:01 Sodium 138 Potassium 4.7 Chloride 107 Carbon Dioxide 23 BUN 37 H Creatinine 1.73 H D Glucose 150 H Calcium 8.2 L Diagnostic Findings Abdomen/Pelvis CT 01/20/25 23:14 CT of the abdomen pelvis without contrast Technique: Noncontrast axial images of the abdomen pelvis. Coronal and sagittal reformatted images made available for review Comparison made to prior exam dated October 23, 2024 Findings: Coronary artery calcifications. Lung bases are clear. Trace pericardial effusion. Right sided hydroureteronephrosis secondary to a 1 cm proximal right ureteral calculi just beyond the UPJ. Nonobstructing right intrarenal calculus. No left-sided hydroureteronephrosis. No left renal, ureteral, or bladder calculi. Cholelithiasis without evidence of acute cholecystitis. Remaining limited noncontrast CT evaluation of the remaining solid abdominal organs demonstrates no gross abnormality. No free air or intestinal obstruction. Diverticulosis without evidence of diverticulitis. Urinary bladder is unremarkable. Bone windows demonstrate no focal abnormality Impression Right-sided hydroureteronephrosis secondary to 1 cm proximal right ureteral calculus just beyond the right UPJ. Electronically signed by Sang Alonzo 01-20-2025 11:48 PM Retrograde Pyelogram 01/21/25 00:00 FL retrograde includes kub CLINICAL HISTORY: RETROGRADE COMPARISON STUDY: None FLUOROSCOPY TIME: 16 seconds FLUOROSCOPY IMAGES: 2 EXPOSURE DOSE: 5 mGy FINDINGS: Fluoroscopy was provided for urologic procedure. IMPRESSION: Intraoperative fluoroscopy. ACT 112: Negative or not required by law. Electronically signed by: Johnny Estevez M.D. 01/21/2025 1:20 PM Chest X-Ray 01/21/25 00:22 EXAM: XR chest 1V portable CLINICAL HISTORY: renal failure TECHNIQUE: An X-ray image of the chest is obtained in AP projection. COMPARISON: prior X-ray of the chest on 07/09/2024 FINDINGS: Pulmonary Parenchyma: Prominent hilar vascular markings with mild interstitial thickening at the lower lung zones, features suggestive of congestion (new). No evidence of consolidation, collapse, or focal opacities. No pulmonary nodules are identified. No evidence of pleural effusion or pleural thickening. Heart and Mediastinum: The cardiac shadow is displaying the upper limit of normal size (mildly increased). No mediastinal widening or masses. No hilar or mediastinal lymphadenopathy. Bony Thorax: Bony thorax appears intact without fractures or deformities. Soft Tissues: Soft tissues overlying the chest wall are unremarkable. Overlying monitor leads are seen. IMPRESSION: - Prominent hilar vascular markings with mild interstitial thickening at the lower lung zones, features suggestive of congestion (new). - Upper limit of normal cardiac size (mildly increased). Electronically signed by aMtthew Roy 01-21-2025 02:27 AM KUB X-Ray 01/23/25 09:21 KUB HISTORY: stent position COMPARISON STUDY: 01/21/2025 FINDINGS: Right ureteral stent appears well positioned. There is moderate retained stool. No bowel obstruction seen. No definite renal calculi seen. IMPRESSION: Well-positioned right ureteral stent. ACT 112: Negative or not required by law. The above report was generated using voice recognition software. It may contain grammatical, syntax or spelling errors. Electronically signed by: Johnny Estevez M.D. 01/23/2025 9:59 AM Chest X-Ray 01/23/25 10:43 XR chest 1V portable CLINICAL HISTORY: sob COMPARISON STUDY: 01/21/2025 FINDINGS: Stable mild cardiomegaly without pulmonary vascular congestion. No effusion, consolidation, or pneumothorax. IMPRESSION: No acute findings. ACT 112: Negative or not required by law. Electronically signed by: Johnny Estevez M.D. 01/23/2025 11:08 AM Renal Ultrasound 01/24/25 08:19 RENAL ULTRASOUND HISTORY: Acute bilateral flank pain r/o hydronephrosis COMPARISON: CT abdomen and pelvis 01/20/2025 FINDINGS: Right kidney: 13.0 cm. 1 cm calculus of the superior pole right kidney redemonstrated. Mild persistent hydronephrosis. Increased parenchymal echogenicity. Diffuse cortical thinning redemonstrated. Left kidney: 11.9 cm. No hydronephrosis. Diffuse cortical thinning r edemonstrated with increased parenchymal echogenicity. Bladder: Decompressed with wall thickening. The bilateral ureteral jets were not identified. Prostatomegaly. IMPRESSION: 1. Right nephrolithiasis with persistent hydronephrosis. 2. Evidence of chronic medical renal disease. 3. Prostamegaly with chronic outlet obstruction. ACT 112: Negative or not required by law. Electronically signed by: Horacio Ramirez M.D. 01/24/2025 9:42 AM KUB X-Ray 01/24/25 10:30 KUB HISTORY: Status post placement of a right ureteral stent hydronephrosis s/p st ent placement COMPARISON: 01/23/2025 FINDINGS: A right ureteral stent is in satisfactory positioning. Moderate colonic fecal retention. No renal calculi. No ureteral calculi identified. No pneumoperitoneum or pneumatosis. No fracture. IMPRESSION: Satisfactory positioning of the right ureteral stent. No ureteral calculi identified. ACT 112: Negative or not required by law. The above report was generated using voice recognition software. It may contain grammatical, syntax or spelling errors. Electronically signed by: Horacio Ramirez M.D. 01/24/2025 12:30 PM Retrograde Pyelogram 01/25/25 07:00 FL retrograde includes kub CLINICAL HISTORY: CYSTO RT SIDE COMPARISON STUDY: KUB 01/24/2025 FLUOROSCOPY TIME: 79.2 seconds FLUOROSCOPY IMAGES: 8 EXPOSURE DOSE: 28.15 mGy FINDINGS: Status post placement of a right ureteral stent, which appears to be in satisfactory positioning. Mild right-sided hydronephrosis. Catheter projects over the urinary bladder. No definite ureteral calculi are seen on these images. IMPRESSION: Fluoroscopic assistance as above ACT 112: Negative or not required by law. Electronically signed by: Horacio Ramirez M.D. 01/25/2025 9:35 AM
[2025-01-26 20:18] VITALS: O2SAT 96
[2025-01-27 06:14] LABS: Hematocrit (blood only) 29.8 % (42.0-52.0); Hemoglobin 9.8 g/dl (14.0-18.0); Mean Corpuscular Hemoglobin 29.3 pg (25.0-34.0); Mean Corpuscular Volume 89.2 fL (80.0-100.0); Platelet Count 238 K/uL (130-400); RDW Standard Deviation 47.5 fL (36.4-46.3); Red Blood Count 3.34 M/uL (4.70-6.10); White Blood Count 6.91 K/ul (4.8-10.8)
[2025-01-27 06:29] LABS: Anion Gap 8.0 (3-11); Blood Urea Nitrogen 37.0 mg/dl (6-23); Calcium 8.5 mg/dl (8.6-10.3); Carbon Dioxide 26.0 mmol/L (21-32); Chloride 106.0 mmol/L (98-107); Creatinine Clr Calc Pharmacy 37.1 ml/min; Glucose 107.0 mg/dl (70-99(Fasting)); Potassium 4.6 mmol/L (3.5-5.1); Sodium 140.0 mmol/L (136-145)
--- NOTE | 2025-01-27 09:05 | Nephrology Progress Note ---
Date of Service January 27, 2025 Assessment & Plan Admission and Anticipated Discharge Date Admission Date: January 21, 2025 Subjective Assessment & Plan (1) MAGY (acute kidney injury): Plan: persistent Stage I presumed nonoliguric acute kidney injury on CKD 3A. Baseline creatinine 1.3-1.4. Presented with creatinine 2.3 which then came down to 2.2 yesterday but bounced up to 2.7 January 23, down to 2.3 No IV contrast exposure, no significant hemodynamic instability, no electrolyte perturbations. no e/o infection or drug intolerance or inflammation >> leukocytosis (14K WBC) from admission resolved; no concerning s/s. UA 01/23 when creatinine worsened not suggestive of new/unexpected pathology. bladder scan negative 01/24 persistent MAGY possibly from other stone addressed / gordon lithotripsy/stent exch procedure 01/25 Stopped Pyridium; last dose approx 01/22 Strict intake and output >appreciate staff help w/ this Overnight creat did come down nicely to 1.7 but did not go further lower. ( baseline is 1.4) cont nsaid avoidance Agree with lowering gabapentin dose given MAGY Daily bmp to continue BP is somewhat high. Add amlo 2.5 daily. vargas is out and making urine--no major issues. Creat today about same as yesterday. f/u nephrology within 2 weeks. Should ahev BMP done within next few days at PCP office (2) CKD (chronic kidney disease) stage 3, GFR 30-59 ml/min: Plan: Baseline creatinine 1.3-1.4. Daily basic metabolic panel Continue to hold metformin Continue to avoid other nephrotoxins including iodinated contrast (3) Kidney stones: Plan: Suggest outpatient nephro follow-up for metabolic workup if desired Subjective Vargas is out. BP is slightly high. Urine is good. Labs same as yesterday. NO new issues Review of Systems Review of Systems: All systems reviewed & are unremarkable except as noted in Subjective Physical Exam Constitutional: well developed, well nourished, + frail appearing and cooperative; no acute distress Eyes: EOM intact bilaterally ENMT: Mouth: + dry oral mucous membranes Respiratory: normal respiratory effort Auscultation: + diminished lung sounds Cardiovascular: RRR, no murmur, no edema Gastrointestinal (Abdomen): Inspection/Auscultation: normal bowel sounds Percussion/Palpation: abdomen soft Skin: no rashes, warm and dry Psychiatric: Orientation: alert and oriented x 3 Results & Data Vital Signs (Past 12 Hours) Vital Signs Temp Pulse Resp BP Pulse Ox O2 Del Method 01/27/25 07:40 36.5 C 58 L 16 170/79 H 96 Room Air
[2025-01-27] MEDS: SODIUM CHLORIDE 0.9% 500 ML IV SCH (09:27)
--- NOTE | 2025-01-27 12:01 | Discharge Summary ---
Discharge Summary Date of Service January 27, 2025 Principal Dx & Hospital Course #1 = Principal Diagnosis (1) Ureterolithiasis: (2) MAGY (acute kidney injury): (3) Type 2 diabetes mellitus: Plan Obstructive uropathy Ureterolithiasis Pt is s/p Cystoscopy Right Retrograde Pyelogram with radiographic interpretation and Right Stent Placement(Right) on 01/21 POD#2 repeat cysto today 01/25 due to worsening Cr - Cystoscopy with clot evacuation. Right ureteral dilation, laser lithotripsy, basket extraction of stone, retrograde pyelogram, right ureteral stent exchange Remains afebrile, hemodynamically stable with improving Cr Trial of void trial yesterday afternoon and urinating without difficulty, hematuria resolved Okay to discharge from urologic perspective and follow up in office 2 weeks for stent removal Eliquis resumed as hgb stable and post-procedure hematuria resolved Continue daily Flomax, finasteride MAGY Admission creatinine 2.33 but remained elevated after initial urologic procedure. Cr has improved 2.37 ->1.73 -> 1.78 after procedure on 01/25 Baseline Cr 1.4 Per nephrology, feel persistent MAGY from other stone addressed with 2nd urologic procedure completed yesterday and will improve Stopped Pyridium; last dose approx 01/22 Continue holding metformin on discharge Follow up with PCP and repeat BMP within 1 week Follow up with nephrology in 2 weeks HTN Labile BP as an outpatient. BP elevated during admission- started on 2.5mg amlodipine daily. Follow up with PCP for titration T2DM: chronic, stable, continue ISS per protocol, a1c 6.7 in October. Stopped Metformin; Glipizide started on 01/24 given nephrotoxicity Hx of recurrent DVT: Eliquis resumed on discharge Hx of CVA: continue asa, statin, eliquis, risk factor reduction JACOB: CPAP QHS- ordered, but pt refused last night Notes For Next Care Provider MAGY 2/2 obstructive uropathy Cr improving post-procedure but not back to baseline Repeat BMP at PCP follow up, nephro in 2 weeks, urology in 2 wks for stent removal Medication Changes From Visit Amlodipine 2.5mg started Flomax 0.4mg daily started Metformin stopped 2/2 MAGY, glipizide started Admission HPI Per Admitting Provider History obtained from patient and records. Medical history significant for hypertension, hyperlipidemia, CVA, recurrent DVT on Eliquis, JACOB on CPAP, DM 2 on oral medications, CRI (baseline creatinine 1.3), chronic anemia (baseline hemoglobin 11), BPH, urolithiasis, past tobacco abuse. Last confinement September 2024 for strokelike symptoms presenting as aphasia. Yesterday, patient had achy abdominal and low back pain more on the right somewhat reminiscent of kidney stone pain. No gross hematuria. No headache, no chest pain, no SOB. 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 Admission Exam Per Admitting Provider GENERAL: Comfortable, pleasant, no respiratory distress SKIN: Sunburn RUE, pallor, warm HEENT: Pale palpebral conjunctivae, no ptosis, dry buccal mucosa NECK : Supple, no tenderness CHEST : CTA, no tenderness HEART : RRR, systolic murmur ABDOMEN: Some distention, minimal right-sided abdominal tenderness EXTREMITIES : No LE swelling/tenderness, palpable pulses, no other conspicuous deformities noted NEUROLOGIC : Coherent, no facial asymmetry, no other gross focality Discharge Exam Gen: WD/WN, NAD, resting in bed comfortably, A&Ox3 HEENT: Normocephalic, atraumatic, dry mucous membranes of oropharynx Lung: Clear to Auscultation bilaterally Heart: Regular rate, regular rhythm Abdomen: Soft, NT, ND +BS x 4 : Birch with blood tinged urine Extremities: no edema Skin: Warm, no rash Updated Medication List Medication Instructions Recorded Confirmed Type atorvastatin 40 mg tablet (Lipitor) 40 mg PO QAM 03/29/21 01/20/25 History finasteride 5 mg tablet 5 mg PO QAM 05/08/24 01/20/25 History docusate sodium 100 mg capsule 100 mg PO 4XWK 05/15/24 01/20/25 History (Stool Softener) sertraline 50 mg tablet 50 mg PO QAM 30 days #30 tabs 05/30/24 01/20/25 Rx acetaminophen 500 mg tablet 500 mg PO TID PRN Pain 10/22/24 01/20/25 History (Tylenol Extra Strength) aspirin 81 mg tablet,delayed 81 mg PO QAM 10/22/24 01/20/25 History release gabapentin 300 mg capsule 300 mg PO BID 10/22/24 01/20/25 History apixaban 5 mg tablet (Eliquis) 5 mg PO AMHS 01/20/25 01/20/25 History ondansetron HCl 4 mg tablet 4 mg PO Q6 PRN Nausea 01/20/25 01/20/25 History propranolol 10 mg tablet 5 mg PO AMHS 01/20/25 01/20/25 History amlodipine 2.5 mg tablet 2.5 mg PO DAILY #30 tabs 01/27/25 Rx glipizide 5 mg tablet 2.5 mg (1/2 x 5 mg) PO QDB #30 tabs 01/27/25 Rx tamsulosin 0.4 mg capsule 0.4 mg PO QAM #30 caps 01/27/25 Rx Hospital Stay Data Consultations 01/21/25 00:40 ED Decision to Admit Stat 01/21/25 01:57 Consult Urology Routine 01/23/25 10:43 Consult Nephrology Routine Procedures Performed Operation Date: 01/25/25 07:30 Actual Procedures p Cystoscopy, ureteral dilation, laser lithotripsy, basket extraction of stone, retrograde pyelogram, (Right) - Curt Singh DO s ureteral stent exchange -Right(Right) - Curt Singh DO Diagnostic Imagining Performed 01/20/25 23:14 CT Abd and Pelvis [CT abd pelvis wo con] Stat 01/21/25 FL retrograde includes kub Routine 01/24/25 08:19 US Renal Bladder [US renal/blad retro comp] Routine 01/25/25 07:00 FL retrograde includes kub Routine Discharge Instructions Given to Patient (Per Discharging Provider) MEDICATION CHANGES: NEW: Amlodipine 2.5 mg PO by mouth daily for blood pressure Tamsulosin 0.4mg daily for urinary flow Glipizide 2.5mg daily for diabetes STOP: Metformin due to worsening kidney function RECOMMENDATIONS FOR FOLLOW-UP: Follow up with PCP as scheduled and repeat BMP labwork within 1 week to recheck kidney function, titrate blood pressure medications Follow up with nephrology (kidney doctor) in 2 weeks Follow up with urology in 2 weeks for stent removal Continue medication regimen as scheduled aside from changes noted above. OTHER INSTRUCTIONS: Seek medical attention if you have: * temperature above 101 * chest pain or trouble breathing * abdominal pain, nausea, vomiting * diarrhea, dark stools or bloody stools * any unanswered questions or concerns Call 911 if symptoms are severe. Please take good care of yourself. Call if you have any questions or problems. You can reach a [facility] hospitalist on duty at [facility] 24 hours a day by calling [phone]. Total Time Total Time Spent Total Time Spent (In Minutes): 50
[2025-01-27 13:56] VITALS: BP 136/72; PULSE 60; TEMP 98.3
== END 2025-01-27 14:59 | disposition home or self-care (01) | DRG 661 ==
LOC: ED 22:36 → SUATTDRO 01-21 00:37 → 3N 01-21 00:37